=== PATIENT | male | born 1965 | race Caucasian/White ===

== ENCOUNTER 2019-09-27 01:06 | Emergency (ER) | payer MEDICARE, SELFPAY ==
[2019-09-27 01:18] VITALS: BP 146/69; PULSE 99; RESP 16; TEMP 36.9; O2SAT 97
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
[2019-09-27] MEDS: MORPHINE SULFATE 10 MG/ML AMP 8 MG IM (02:04)
[2019-09-27 02:12] VITALS: BP 157/61; PULSE 91; RESP 18; O2SAT 98
[2019-09-27 02:33] VITALS: BP 162/93; PULSE 99; RESP 17; O2SAT 97
== END 2019-09-27 02:34 | disposition home or self-care (01) ==
PROVIDERS: Emergency Provider Emergency Medicine; PCP Family Medicine
DX: G54.6 Phantom limb syndrome with pain (principal); Z89.612 Acquired absence of left leg above knee; E11.42 Type 2 diabetes mellitus with diabetic polyneuropathy; Z79.4 Long term (current) use of insulin; F41.9 Anxiety disorder, unspecified; M19.90 Unspecified osteoarthritis, unspecified site; I25.10 Atherosclerotic heart disease of native coronary artery without angina pectoris; F32.9 Major depressive disorder, single episode, unspecified; E78.5 Hyperlipidemia, unspecified; I10 Essential (primary) hypertension; I25.2 Old myocardial infarction; E11.51 Type 2 diabetes mellitus with diabetic peripheral angiopathy without gangrene; Z95.2 Presence of prosthetic heart valve; Z95.1 Presence of aortocoronary bypass graft; F17.200 Nicotine dependence, unspecified, uncomplicated
CPT/HCPCS: 96372; 99283; J2270

== ENCOUNTER 2019-10-24 00:58 | Observation (INO) | payer MEDICARE, SELFPAY ==
[2019-10-24] VITALS (12 sets, daily range): BP systolic 118–181; BP diastolic 84–109; PULSE 70–137; RESP 12–32; TEMP 36.2–36.7; O2SAT 95–98; BMI 32.5; BMI 33.0
--- NOTE | ~2019-10-24 | XR_ITS ---
EXAMINATION: XR chest 1V portable DATE: 10/24/2019 06:39 INDICATION: Palpitations. TECHNIQUE: A single frontal view of the chest was obtained. COMPARISON: Chest 2 views 04/05/2014, chest CT 04/05/2014 FINDINGS: Sensitivity is decreased by obesity. There are airspace opacities in right lower lung zone. No pleural effusion or pneumothorax. The heart size is normal. Median sternotomy wires and mediastin al surgical clips are seen, likely from prior coronary artery bypass grafting. IMPRESSION: 1. Airspace opacities in right lower lung zone, consistent with atelectasis versus pneumonia. Reviewed, dictated and finalized at location A. [facility]E IMPRESSION: 1. Airspace opacities in right lower lung zone, consistent with atelectasis ramona adair pneumonia.
--- NOTE | 2019-10-24 01:10 | ED.EXTPRO ---
HPI - Extremity Problem General Chief complaint: Extremity Injury, Lower Stated complaint: pain in l stump Time Seen by Provider: 10/24/19 01:02 Source: patient and RN notes reviewed Mode of arrival: wheelchair Limitations: no limitations History of Present Illness HPI Narrative: Pt is a 54 y/o male with a Hx of lt AKA, who presents to the ED with c/o exacerbation of chronic lt posterior hip pain starting several days ago. He notes that he has previously been following with a pain specialist for chronic lt hip pain near his amputation stump, but states that he has been off of his previous analgesics for the past 1.5 years. Pt's notes that he has been evaluated here within the past 2 months for similar pain. He states that his pain has worsened over the past several days, and notes that he was unable to sleep tonight due to his pain. Pt denies any new injuries, fever, or chills. He notes that he currently takes Lyrica for his chronic pain. MD Complaint: extremity pain Onset (ago): day(s) (several) Pain Consistency: other (worsening) Location: other (lt posterior hip) Radiation: none Associated symptoms: denies other symptoms Context: immobilization Related Data Home Medications Medication Instructions Recorded Confirmed aspirin 81 mg tablet,delayed 81 mg PO DAILY 09/20/19 10/04/19 release clopidogrel 75 mg tablet 75 mg PO DAILY 09/20/19 10/04/19 insulin human U-100 NPH-regulr 80 unit SUB-Q BID ml 09/20/19 10/04/19 70-30 mix 100 unit/mL subcutaneous susp nitroglycerin 0.4 mg sublingual 0.4 mg SUBLINGUAL Q5M PRN 09/20/19 10/04/19 tablet nortriptyline 50 mg capsule 50 mg PO DAILY 09/20/19 10/04/19 phenytoin sodium extended 100 mg 200 mg PO BID cap 09/20/19 10/04/19 capsule simvastatin 20 mg tablet 20 mg PO DAILY 09/20/19 10/04/19 gabapentin 300 mg capsule 300 mg PO TID 10/04/19 10/04/19 Allergies Allergy/AdvReac Type Severity Reaction Status Date / Time No Known Allergies Allergy Unverified 10/24/19 01:11 Review of Systems Review of Systems: All systems reviewed & are unremarkable except as noted in HPI and below Constitutional: Constitutional: Denies chills and Denies fever(s) Musculoskeletal: Musculoskeletal: Reports arthralgias (lt posterior hip pain) [facility] Past Medical History Medical History Angina at rest Anxiety Arthritis CAD (coronary artery disease) of artery bypass graft Depression Diabetes Hyperlipidemia Hypertension Left above-knee amputee Myocardial infarction Peripheral neuropathy Peripheral vascular disease Seizures Surgical History Surgical History Above knee amputation of left lower extremity H/O aortic valve replacement H/O cardiac catheterization H/O vascular surgery History of appendectomy Hx of CABG Social History Social History Smoking status: Current every day smoker Second hand tobacco smoke exposure: No Alcohol intake: never Exam Narrative: Exam Narrative: APPEARANCE: Moderate distress from pain, nontoxic, resting in bed EYES: EOMI HEENT: Normocephalic, atraumatic, OMM RESPIRATORY: No respiratory distress Clear to auscultation bilaterally with no rhonchi wheezing or rales. CARDIOVASCULAR: Tachycardic and regular without murmurs rubs or gallops. ABDOMINAL: Soft, nontender, nondistended, no rebound or guarding MUSCULOSKELETAl: Left lower extremity with stump present, no erythema or signs of infection, no clubbing, cyanosis or edema. There is no overlying wounds NEURO: Awake and alert. Following commands, speech normal, no focal deficits SKIN:: Warm, dry. No rashes lesions or abrasions PSYCHIATRIC: Normal affect/mood, Course Course Emergency Course: Reviewed old records. The patient is been seen in the emergency department for this prior as well as by PCP. Reviewed PCPs note patient had been referred to pain
--- NOTE | 2019-10-24 01:11 | ECG_ITS ---
Measurements Intervals [place] Rate: 128 P: 68 VA: 170 QRS: -17 QRSD: 76 T: 82 QT: 301 QTc: 440 Interpretive Statements SINUS TACHYCARDIA LEFT VENTRICULAR HYPERTROPHY AND ST-T CHANGE ANTERIOR INFARCT, AGE INDETERMINATE INFERIOR INFARCT, AGE INDETERMINATE ST-T WAVE ABNORMALITY IN LATERAL LEADS- CONSIDER ISCHEMIA BASELINE ARTIFACT- I, II, AVR ABNORMAL ECG Electronically Signed On 10-24-2019 7:27:53 LICENSED BONDSMAN by Dylan Baker D.O.
[2019-10-24 01:25] LABS: Basophils Absolute Auto 0.1 K/mm3 (0.0-0.1); Basophils Percent Auto 0.4 % (0.2-1.2); Eosinophils Absolute Auto 0.4 K/mm3 (0-0.3); Eosinophils Percent Auto 2.7 % (0-4.4); Hematocrit 46.7 % (42.0-52.0); Hemoglobin 16.5 g/dL (14.0-18.0); Immature Granulocyte Absolute 0.04 K/mm3 (0.00-0.031); Immature Granulocyte Percent A 0.3 % (0-0.5); Lymphocytes Percent Auto 34.9 % (18.3-44.2); Mean Corpuscular HGB Conc 35.3 g/dl (32-36); Mean Corpuscular Volume 93.4 fl (80-100); Mean Platelet Volume 11.8 fl (7.4-10.4); Monocytes Absolute Auto 1.4 K/mm3 (0.1-0.6); Neutrophils Percent Auto 51.7 % (45.5-73.1); Platelet Count Result 229 k/mm3 (150-375); White Blood Count 13.5 K/mm3 (4.5-10.0)
[2019-10-24] MEDS: LACTATED RINGERS 1,000 ML 999 ML IV CONT (01:35)
[2019-10-24] MEDS: MORPHINE SULFATE 4 MG/ML INJ IV PUSH ×2 (01:35→02:12)
[2019-10-24 01:45] LABS: INR 0.8; Prothrombin Time 11.2 Seconds (11.1-14.7)
[2019-10-24 02:03] LABS: Alanine Aminotransferase 86 U/L (4-50); Albumin Level 3.2 g/dL (3.5-5.1); Alkaline Phosphatase 238 U/L (38-126); Aspartate Amino Transferase 76 U/L (17-59); Bilirubin,Total 0.4 mg/dL (0.2-1.3); Blood Urea Nitrogen 13 mg/dL (9-20); Calcium 8.8 mg/dL (8.4-10.2); Carbon Dioxide 24 mmol/L (22-30); Chloride 94 mmol/L (98-107); Estimated Glomerular Filt Rate > 60; Glucose 400 mg/dL (75-110); Potassium 4.3 mmol/L (3.4-5.0); Sodium 131 mmol/L (137-145)
--- NOTE | 2019-10-24 02:38 | PC.NURSE ---
Called lab to add on Trop I
[2019-10-24] MEDS: METOPROLOL TARTRATE 50 MG TAB PO ×2 (02:46→14:42)
--- NOTE | 2019-10-24 02:55 | PC.NURSE ---
pt requesting pain medications edp notified.
[2019-10-24 02:59] LABS: Lactic Acid Reflex 2.3 mmol/L (0.7-2.1)
[2019-10-24 03:00] LABS: Troponin I 0.029 ng/mL (0.000-0.034)
[2019-10-24 03:21] LABS: Add Urine Microscopic? YES; Appearance Urine Clear (Clear); Bilirubin Urine Negative (Negative); Blood Urine 1+ (Negative); Color Urine Yellow (Yellow); Glucose Urine UA 3+ mg/dL (Negative); Ketones Urine Trace mg/dL (Negative); Leukocyte Esterase Ur Negative LEU/UL (Negative); Mucus Urine Rare /lpf; Nitrate Urine Negative (Negative); Protein Urine 3+ mg/dL (Negative); Squamous Epithelial Cell Urine Rare /hpf (Few); Urobilinogen Urine Negative mg/dL (<2.0); WBC Urine 0-3 /hpf
--- NOTE | 2019-10-24 03:31 | PC.NURSE ---
pt requesting pain medications edp notified.
[2019-10-24] MEDS: HYDROMORPHONE HCL 1 MG/ML INJ 0.5 MG IV PUSH (03:38)
[2019-10-24 04:56] LABS: Glucose Point of Care 420 (65-105)
[2019-10-24 05:39] LABS: Reflex Lactic Acid Yes or No Add Lactic
--- NOTE | 2019-10-24 05:52 | PC.NURSE ---
Pt refused the second lactic acid to be drawn. notified
[2019-10-24 06:19] LABS: Troponin I 0.303 ng/mL (0.000-0.034)
[2019-10-24 06:28] LABS: Glucose Point of Care 340 (65-105)
--- NOTE | 2019-10-24 06:33 | ECG_ITS ---
Measurements Intervals [place] Rate: 87 P: 8 NV: 185 QRS: -6 QRSD: 96 T: 72 QT: 369 QTc: 445 Interpretive Statements SINUS RHYTHM WITH SINUS ARRHYTHMIA INFERIOR INFARCT, AGE INDETERMINATE BORDERLINE ST-T WAVE ABNORMALITY- LATERAL LEADS ABNORMAL ECG Electronically Signed On 10-24-2019 7:31:15 CHOCOLATE FINISHER OPERATOR by Dylan Baker D.O.
[2019-10-24] MEDS: ASPIRIN 81 MG CHEWABLE TABLET 324 MG PO (06:48)
[2019-10-24 06:56] LABS: Lactic Acid Reflex 1.2 mmol/L (0.7-2.1)
--- NOTE | 2019-10-24 08:49 | ADMIMU ---
This patient, Calvin Flores, was admitted to IMU status, and placed in IMU Room 211-01. Patient/family oriented to hospital policies and general routines including ID bracelet, bed and alarms, visiting hours, pain management, procedures, bathroom and other care routines, personal items, smoking policy, room service/diet, and visiting hours. Valuables list has been completed. Information on how to activate the Rapid Response Team has been discussed. Patient/Family are encouraged to report perceived risks to care and to ask questions if they do not understand what they are told or what they should do.
[2019-10-24 10:15] LABS: Hemoglobin A1C 12.7 % (<5.7)
--- NOTE | 2019-10-24 10:37 | PM.IMHP ---
H&P: HPI History of Present Illness Chief complaint: elevated troponin/sinus tachycardia/chronic stump Narrative: Date and Time of Service of History & Physical: October 24, 2019 at 10:10 a.m. Date and Time of Placement in Observation: October 24, 2019 at 6:39 a.m.. Chief Complaint: Increase in chronic pain in left AKA stump. History of Present Illness: Calvin Flores is a 54 year old male with known chronic pain in the left AKA stump, diabetes mellitus insulin requiring, hypertension, coronary artery disease and hyperlipidemia presented to emergency room yesterday with increased pain in his left AKA stump. Patient was seen by his primary physician on October 04, 2019 at which time gabapentin was increased. He does also take Lyrica. Referral was recommended to pain management. Patient is not seen pain management this time. No new injury. No erythema. No fever. Patient does admit to not having taken his nighttime medication prior to coming to the emergency room. While in the emergency room, he was noted to have increased heart rate and blood pressure. No chest pain, chest pressure or shortness of breath. ER physician did draw serial troponin levels with 2nd troponin level elevated. As result, he was placed in observation for further evaluation and treatment. Review of Systems Review of Systems: All systems reviewed & are unremarkable except as noted in HPI and below Constitutional: Constitutional: Denies chills and Denies fever(s) Eyes: Eyes: Denies blurry vision and Denies diplopia ENT: Denies dysphagia, Denies nasal congestion, Denies nasal discharge and Denies sore throat Cardiovascular: Cardiovascular: Denies chest pain, Denies leg edema and Denies lightheadedness Respiratory: Respiratory: Denies cough, Denies dyspnea and Denies wheezing Gastrointestinal: Gastrointestinal: Denies abdominal pain, Denies diarrhea, Denies nausea and Denies vomiting Genitourinary: Genitourinary: Reports no additional male genitourinary complaints Musculoskeletal: Comments: chronic pain left AKA stump Integumentary/Breasts: Skin/Breast: Denies erythema Neurologic: Denies headache(s) Comments: pain left AKA stump Psychiatric: Psychiatric: Denies anxiety and Denies depression Endocrine: Endocrine: Reports no additional endocrine complaints Hematologic/Lymphatic: Hematologic/Lymphatic: Reports no additional hematologic/lymphatic complaints Allergic/Immunologic: Allergic/Immunologic: Reports no additional allergic/immunologic complaints [facility] Past Medical History Medical History Angina at rest Anxiety Arthritis CAD (coronary artery disease) of artery bypass graft Depression Diabetes Hyperlipidemia Hypertension Left above-knee amputee Myocardial infarction Peripheral neuropathy Peripheral vascular disease Seizures Surgical History Surgical History Above knee amputation of left lower extremity H/O aortic valve replacement H/O cardiac catheterization H/O vascular surgery History of appendectomy Hx of CABG Family History Family History Other Diabetes mellitus Social History Social History Social History: Patient is . He lives with his who is his POA. He is a full code. He previously smoked 1 pack per day times 35 years quitting 2 years ago. No current alcohol use. Smoking packs per day: 1 Smoking cigarettes per day: 20.0 Years smoked: 35 Smoking pack-years: 35.00 Smoking status: Former smoker Tobacco type: cigarettes Second hand tobacco smoke exposure: No Smoking end date: 08/25/17 Alcohol intake: never Substance use: former Living arrangements: with family Gender identity (if verbalized by the patient): Male Spiritual care concerns: No Agree to blo
[2019-10-24 12:22] LABS: Glucose Point of Care 425 (65-105)
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
[2019-10-24] MEDS: NORTRIPTYLINE HCL 25 MG CAPSULE 50 MG PO (13:35)
[2019-10-24] MEDS: PREGABALIN 75 MG CAPSULE 150 MG PO (13:35)
[2019-10-24] MEDS: lisinopriL 5 MG TABLET PO (13:36)
[2019-10-24] MEDS: GABAPENTIN 300 MG CAPSULE PO (13:36)
[2019-10-24] MEDS: PHENYTOIN SODIUM 100 MG CAP 200 MG PO (13:36)
[2019-10-24] MEDS: INSULIN ASPART (*BKC) 100 UNITS/ML 15 UNITS SUB-Q (13:42)
--- NOTE | 2019-10-24 19:09 | PM.DS ---
DS: Diagnosis Admitting Diagnosis Admitting Diagnosis: Other complications of amputation stump Discharge Diagnosis (1) Amputation stump pain: Code(s): T87.89 - Other complications of amputation stump; M79.609 - Pain in unspecified limb Status: Acute (2) Elevated troponin: Code(s): R79.89 - Other specified abnormal findings of blood chemistry Status: Acute (3) Hypertension: Qualifiers: Hypertension type: essential hypertension Qualified Code(s): I10 - Essential (primary) hypertension Code(s): I10 - Essential (primary) hypertension Status: Acute (4) Diabetes: Qualifiers: Diabetes mellitus type: type 2 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 transplanted heart: [place] heart Associated angina: without angina Qualified Code(s): I25.810 - Atherosclerosis of coronary artery bypass graft(s) without angina pectoris Code(s): I25.810 - Atherosclerosis of coronary artery bypass graft(s) without angina pectoris Status: Acute (6) Hyperlipidemia: Qualifiers: Hyperlipidemia type: unspecified Qualified Code(s): E78.5 - Hyperlipidemia, unspecified Code(s): E78.5 - Hyperlipidemia, unspecified Status: Acute DS: Summary Hospital Course Reason for hospitalization: Increase in chronic pain left AKA stump. Hospital Course: Date of Service of Discharge: October 24, 2019. History of Present Illness: Patient is a 54-year-old gentleman with known chronic pain in his left AKA stump, type 2 diabetes mellitus insulin requiring, hypertension, coronary artery disease and hyperlipidemia who presented to the emergency room with complaint of increased pain in his left AKA stump. Patient was seen by his primary physician on October 04, 2019 at which time gabapentin was increased. He also takes to Lyrica. Referral was recommended to pain management at that time but he has not yet been seen. No recent injury, erythema or fever. He does admit to not having taken his nighttime medications prior to coming to the emergency room. While in the emergency room, he was noted to have increased heart rate and blood pressure. No chest pain, chest pressure or shortness of breath. No headache or dizziness. ER physician did draw serial troponin levels with patient noted to have the tachycardia and elevated blood pressure. Second troponin level was elevated. As result, he was placed in observation for further evaluation and treatment. Of note, he was given IV morphine and Dilaudid in the emergency room. Course in Hospital: Patient was placed in observation in the intermediate care unit for serial troponin levels. Cardiology was consulted from the emergency room. Troponin level did increase to a maximum of 1.830 but is noted he never experienced cardiac symptoms. EKG with no acute changes. Telemetry will also with no changes seen. He was seen in consultation by Dr. Mccabe from [facility] with which he [facility]. No further cardiac evaluation was needed given no cardiac symptoms. Tachycardia and elevated blood pressure were felt to be due to lack of taking his metoprolol. He was resumed on his home metoprolol as well as other cardiac medications with no issues during his stay. The reason for which he initially presented to the ER was increased pain in his left AKA stump. As noted, he was given IV pain medication in the emergency room. In hospital, he was given h
== END 2019-10-24 15:15 | disposition home or self-care (01) ==
LOC: ANHED 06:44 → ANHIMU 10:21
PROVIDERS: Admitting Provider Family Medicine; Emergency Provider Emergency Medicine; PCP Family Medicine; Visit Provider Hospitalist
DX: T87.89 Other complications of amputation stump (principal); Z89.612 Acquired absence of left leg above knee; G89.29 Other chronic pain; M25.552 Pain in left hip; R79.89 Other specified abnormal findings of blood chemistry; R00.0 Tachycardia, unspecified; I25.810 Atherosclerosis of coronary artery bypass graft(s) without angina pectoris; I25.2 Old myocardial infarction; E11.42 Type 2 diabetes mellitus with diabetic polyneuropathy; E11.51 Type 2 diabetes mellitus with diabetic peripheral angiopathy without gangrene; I10 Essential (primary) hypertension; E78.5 Hyperlipidemia, unspecified; F41.9 Anxiety disorder, unspecified; F32.9 Major depressive disorder, single episode, unspecified; Z79.4 Long term (current) use of insulin; Z79.82 Long term (current) use of aspirin; Z79.899 Other long term (current) drug therapy; Z87.891 Personal history of nicotine dependence; Z91.14 Patient's other noncompliance with medication regimen; Z95.2 Presence of prosthetic heart valve
CPT/HCPCS: 36415; 71045; 80053; 81001; 82948; 83036; 83605; 84484; 85025; 85610; 85730; 93005; 96361; 96374; 96375; 96376; 99285; A9270; G0378; J1170; J1815; J2270; J7120

== ENCOUNTER 2020-01-07 04:33 | Emergency (ER) | payer MEDICARE, SELFPAY ==
--- NOTE | 2020-01-07 04:45 | ED.EXTPRO ---
HPI - Extremity Problem General Chief complaint: Extremity Problem,Nontraumatic Stated complaint: Pain in stump Time Seen by Provider: 01/07/20 04:42 History of Present Illness HPI Narrative: Patient is a 54-year-old male who presents ER with left low back pain as well as phantom limb pain. This is a chronic issue for him. This is been ongoing for 3 days. He reports typically he will get the pain and will last for several days will not go away until he goes to sleep. This has not gone away yet. No aggravating or alleviating factors. Has been to physical therapy for this. Recently he is filled out paperwork to be referred to pain management. No recent trauma to the affected area. Denies skin breakdown fever. Has been compliant with his Lyrica and gabapentin. Increasing amount of gabapentin that he takes at night in hopes that it would help his pain. Related Data Home Medications Medication Instructions Recorded Confirmed aspirin 81 mg tablet,delayed 81 mg PO DAILY 09/20/19 10/24/19 release insulin human U-100 NPH-regulr 80 unit SUB-Q BID ml 09/20/19 10/24/19 70-30 mix 100 unit/mL subcutaneous susp nitroglycerin 0.4 mg sublingual 0.4 mg SUBLINGUAL Q5M PRN 09/20/19 10/24/19 tablet nortriptyline 50 mg capsule 50 mg PO DAILY 09/20/19 10/24/19 simvastatin 20 mg tablet 20 mg PO DAILY 09/20/19 10/24/19 Allergies Allergy/AdvReac Type Severity Reaction Status Date / Time No Known Allergies Allergy Verified 01/07/20 04:56 Review of Systems Review of Systems: All systems reviewed & are unremarkable except as noted in HPI and below Constitutional: Constitutional: Denies chills, Denies fever(s) and Denies weakness Cardiovascular: Cardiovascular: Denies chest pain and Denies radiating jaw, neck or arm pain Gastrointestinal: Gastrointestinal: Denies abdominal pain, Denies nausea and Denies vomiting Musculoskeletal: Comments: Low back pain left side as well as sharp pains in the right leg stump. [facility] Social History Social History Social History: Patient is . He lives with his who is his POA. He is a full code. He previously smoked 1 pack per day times 35 years quitting 2 years ago. No current alcohol use. Smoking packs per day: 1 Smoking cigarettes per day: 20.0 Years smoked: 35 Smoking pack-years: 35.00 Smoking status: Former smoker Tobacco type: cigarettes Second hand tobacco smoke exposure: No Smoking end date: 08/25/17 Alcohol intake: never Substance use: former Gender identity (if verbalized by the patient): Male Spiritual care concerns: No Agree to blood products: Yes Exam Narrative: Exam Narrative: GENERAL: Uncomfortable-appearing, well-nourished, and in no acute distress. HEAD: Normocephalic, atraumatic.. ENT: Mucous membranes moist. CHEST: Clear to auscultation. No respiratory distress. HEART: Regular rate and rhythm. Normal peripheral pulses. EXTREMITIES: Focused exam of the left stump shows an AKA without any wound breakdown. Seems to range okay at the hip. No reproducible tenderness with palpation. Patient points to the posterior aspect of the left hip and stating where his pain is located. Back: No midline tenderness of the thoracic or lumbar spine. No reproducible paraspinal muscular tenderness. SKIN: Warm, dry, no rash. NEURO: Alert and oriented x3. Course Course Emergency Course: IM morphine here. Discharge with Solu-Medrol and lidocaine patches. Vital Signs Vital signs: Vital Signs Temperature 98.3 F 01/07/20 04:51 Pulse Rate 93 01/07/20 04:51 Respiratory Rate 14 01/07/20 04:51 Blood Pressure 150/107 H 01/07/20 04:51 Pulse Oximetry 99 01/07/20 04:51 Temperature 98.3 F 01/07/20 04:51 Pulse Rate 93 01/07/20 04:51 Respiratory Rate 14 01/07/20 04:51 Blood Pressure 150/107 H 01/07/20 04:51 Pulse Oximetry 99 01/07/20 04:51 Discharge Plan Disch
[2020-01-07 04:51] VITALS: BP 150/107; PULSE 93; RESP 14; TEMP 36.8; O2SAT 99
[2020-01-07] MEDS: MORPHINE SULFATE 4 MG/ML INJ IM (05:16)
[2020-01-07 05:57] VITALS: BP 155/61; PULSE 99; RESP 19; O2SAT 100
== END 2020-01-07 06:01 | disposition home or self-care (01) ==
PROVIDERS: Emergency Provider Emergency Medicine; PCP Family Medicine
DX: G54.6 Phantom limb syndrome with pain (principal); F41.9 Anxiety disorder, unspecified; E78.5 Hyperlipidemia, unspecified; I25.10 Atherosclerotic heart disease of native coronary artery without angina pectoris; M19.90 Unspecified osteoarthritis, unspecified site; I10 Essential (primary) hypertension; I25.2 Old myocardial infarction; E11.42 Type 2 diabetes mellitus with diabetic polyneuropathy; E11.51 Type 2 diabetes mellitus with diabetic peripheral angiopathy without gangrene; Z95.2 Presence of prosthetic heart valve; Z95.1 Presence of aortocoronary bypass graft; Z79.82 Long term (current) use of aspirin; Z79.4 Long term (current) use of insulin; Z87.891 Personal history of nicotine dependence
CPT/HCPCS: 96372; 99283; J2270

== ENCOUNTER 2020-06-14 09:25 | Emergency (ER) | payer MEDICARE, SELFPAY ==
--- NOTE | ~2020-06-14 | XR_ITS ---
EXAMINATION: XR lumbar spine min 4V DATE: 06/14/2020 10:27 INDICATION: Low back pain. Fall. TECHNIQUE: 5 views of lumbar spine were obtained. COMPARISON: Lumbar spine radiograph 02/18/2019 FINDINGS: Bone alignment is normal. There is mild chronic anterior wedging of L1 vertebral body. Ther e is mildly decreased disc height at L1-L2 and L2-L3. There are endplate osteophytes at most levels. There is multilevel mild facet joint osteoarthritis. A vascular stent is likely in right common iliac artery. IMPRESSION: 1. Mild lumbar spondylosis. Reviewed, dictated and finalized at location A. IMPRESSION: 1. Mild lumbar spondylosis.
--- NOTE | ~2020-06-14 | XR_ITS ---
EXAMINATION: XR pelvis 1-2V DATE: 06/14/2020 10:27 INDICATION: Back pain. Fall. TECHNIQUE: An anteroposterior view of the pelvis was obtained. COMPARISON: Pelvis radiograph 02/18/2019 FINDINGS: There is amputation of the proximal left femur. The residual left femur is small and deform ed. No acute fracture. There are old healed fractures of the bilateral superior and inferior pubic ra mi. There is moderate to severe left hip osteoarthritis. There is mild right hip osteoarthritis. A va scular stent is likely in right common iliac artery. IMPRESSION: 1. No acute fracture. 2. Mild right hip osteoarthritis. Reviewed, dictated and finalized at location A.
--- NOTE | ~2020-06-14 | XR_ITS ---
EXAMINATION: XR sacrum coccyx min 2V DATE: 06/14/2020 10:27 INDICATION: Low back pain. Fall. TECHNIQUE: 3 views of the sacrum and coccyx were obtained. COMPARISON: Pelvis radiograph 02/18/2019 FINDINGS: Bone alignment is normal. No acute fracture. There are old healed fractures of the bilatera l superior and inferior pubic rami. There is mild lumbar spondylosis. A vascular stent is likely in r ight common iliac artery. IMPRESSION: 1. No acute fracture. Reviewed, dictated and finalized at location A. IMPRESSION: 1. No acute fracture.
[2020-06-14 09:33] VITALS: BP 189/81; PULSE 70; RESP 18; TEMP 36.8; O2SAT 100
--- NOTE | 2020-06-14 09:51 | ED.FALL ---
HPI - Fall General Chief Complaint: Fall Stated Complaint: FALL, STUMP PAIN Time Seen by Provider: 06/14/20 09:31 Source: patient and family () Mode of arrival: wheelchair Limitations: no limitations History of Present Illness HPI Narrative: Patient with history of left lower extremity amputation, NC, stroke, hypertension, hypercholesterolemia, depression and anxiety presents with chief complaint of pain to his left stump/pelvis, low back and coccyx after falling onto the floor while trying to transfer from his wheelchair to his bed. Patient states that he fell on the left side where the stump is located. Patient states today he also put out his right hand to catch himself and obtained a small abrasion on his right thumb but denies any bony tenderness to that extremity. Patient denies hitting his head, loss of consciousness, nausea, vomiting, abdominal pain. Patient states that his helped him into bed but after a few hours he started noticing spasming and shooting pain sensations to the stump. Patient states that he used to see pain management but no longer drives. Patient states that he takes Lyrica, nortriptyline for pain but it is not well controlled. Patient states that he was on [place] Contin but it was stopped due to the government wanting to stop strong pain medications and marijuana usage. Related Data Home Medications Medication Instructions Recorded Confirmed aspirin 81 mg tablet,delayed 81 mg PO DAILY 09/20/19 06/06/20 release nitroglycerin 0.4 mg sublingual 0.4 mg SUBLINGUAL Q5M PRN 09/20/19 06/06/20 tablet cholecalciferol (vitamin D3) 50 50 mcg PO DAILY 06/06/20 06/06/20 mcg (2,000 unit) capsule Allergies Allergy/AdvReac Type Severity Reaction Status Date / Time No Known Allergies Allergy Verified 06/06/20 14:31 Review of Systems Review of Systems: Narrative: CONSTITUTIONAL: Denies fever, chills, or sweats. EYES: Denies visual changes, redness, or discharge. ENT: Denies rhinorrhea, congestion, sore throat, or otalgia. CARDIOVASCULAR: Denies chest pain, palpitations, or edema. RESPIRATORY: Denies cough or dyspnea. GASTROINTESTINAL: Denies abdominal pain, nausea, vomiting, or diarrhea. GENITOURINARY: Denies dysuria or hematuria. SKIN: Denies rash or itching. MUSCULOSKELETAL: Reports back pain and myalgia. NEUROLOGIC: Denies headache, numbness, dizziness, or weakness. PSYCHIATRIC: Denies anxiety or depression. [facility] Past Medical History Medical History (Updated 06/14/20 @ 10:57 by Franklin Myers PA-C) Angina at rest Anxiety Arthritis CAD (coronary artery disease) of artery bypass graft Chronic low back pain Chronic pain Depression Diabetes History of colon polyps Hyperlipidemia Hypertension Insomnia Left above-knee amputee Myocardial infarction Osteoarthritis involving joints of upper arms, bilateral Peripheral neuropathy Peripheral vascular disease Seizures Vitamin D deficiency Surgical History Surgical History (Updated 06/06/20 @ 16:56 by Amaris Boogie MD) Above knee amputation of left lower extremity Amputation of left lower extremity 11/1985 H/O aortic valve replacement H/O cardiac catheterization H/O vascular surgery History of appendectomy Hx of CABG Family History Family History Other Diabetes mellitus Social History Social History Social History: Patient is . He lives with his who is his POA. He is a full code. He previously smoked 1 pack per day times 35 years quitting 2 years ago. No current alcohol use. Smoking packs per day: 1 Smoking cigarettes per day: 20.0 Years smoked: 35 Smoking pack-years: 35.00 Smoking status: Former smoker Tobacco type: cigarettes Second hand tobacco smoke exposure: No Smoking end date: 08/25/17 Alcohol intake: never Substance use: former Gender identity (if verbalized by the evangelista
[2020-06-14] MEDS: HYDROcodone/acetaminophen (*CRX) 5-325 MG TABLET 1 TAB PO (10:46)
--- NOTE | 2020-06-14 11:00 | PC.NURSE ---
Report given to ÁLVARO Chan
[2020-06-14 11:21] VITALS: BP 172/84; PULSE 75; RESP 20; O2SAT 98
== END 2020-06-14 11:24 | disposition home or self-care (01) ==
PROVIDERS: Emergency Provider Emergency Medicine; PCP Family Medicine
DX: M79.652 Pain in left thigh (principal); M54.5 Low back pain; M53.3 Sacrococcygeal disorders, not elsewhere classified; Z87.891 Personal history of nicotine dependence; Z79.82 Long term (current) use of aspirin; F41.9 Anxiety disorder, unspecified; I25.10 Atherosclerotic heart disease of native coronary artery without angina pectoris; F32.9 Major depressive disorder, single episode, unspecified; E11.9 Type 2 diabetes mellitus without complications; E78.5 Hyperlipidemia, unspecified; M19.90 Unspecified osteoarthritis, unspecified site; G40.909 Epilepsy, unspecified, not intractable, without status epilepticus; Z89.612 Acquired absence of left leg above knee
CPT/HCPCS: 72110; 72170; 72220; 99284; A9270

== ENCOUNTER 2020-08-08 15:54 | Emergency (ER) | payer MEDICARE, SELFPAY ==
[2020-08-08] VITALS (16 sets, daily range): BP systolic 137–222; BP diastolic 81–104; PULSE 69–76; RESP 13–19; TEMP 36.2; O2SAT 91–100
--- NOTE | ~2020-08-08 | CT_ITS ---
EXAMINATION: CT chest abdomen pelvis w con EXAM DATE: 08/08/2020 17:16 INDICATION: Reporting chest pain, radiating to left flank TECHNIQUE: Spiral CT of the chest, abdomen and pelvis was performed following intravenous injection o f 100 mL Omnipaque 350. Axial, coronal and sagittal images were reviewed. Coronal maximum intensity pixel images of chest reviewed. The dose-length product (DLP) for this examination was 2242.70 mGy- cm. The exposure was tailored according to patient size (auto mA exposure control), and iterative re construction (ASIR) was used as additional dose reduction technique. Comparison is made to prior exam ination from 04/05/2014. FINDINGS: There is no aortic aneurysm or dissection. CHEST: No central pulmonary emboli. The lungs are clear. There is small to moderate left, and a sma ll right pleural effusion. Some faint basilar groundglass opacities which could be mild pulmonary tracie ma given the interlobular septal thickening. Can't exclude developing acute infectious process. No co nfluent consolidation. Tracheobronchial tree is patent. There is no mediastinal, hilar or axillary lymphadenopathy. There is no pneumothorax. Heart normal in size. There are sternotomy wires, a nd cardiac/coronary surgical changes. Correlate with prior history. ABDOMEN PELVIS: The liver, spleen, adrenal glands and pancreas are unremarkable. Gallbladder is unre markable. No biliary obstruction. Portal and splenic veins are patent. Kidneys enhance symmetrical ly. There is no hydronephrosis. The prostate is unremarkable. The bladder is unremarkable. There is no retroperitoneal or pelvic lymphadenopathy. There is moderate scattered arteriosclerotic dise ase. There is a right iliac stent. Occluded left iliac artery, patient appears to have left leg amput ation. The appendix is not positively visualized. There is no pericecal inflammatory change to suggest appe ndicitis. The stomach and small bowel are unremarkable. There is expected amount of colonic stool. No free intraperitoneal gas. There are no osteoblastic or osteolytic lesions identified. IMPRESSION: 1. Small to moderate left, small right pleural effusion. 2. Basilar intralobular septal thickening and faint groundglass opacity, could be mild pulmonary tracie ma but infection not excludable. 3. No acute intra-abdominal findings. Reviewed, dictated and finalized at location A. CE EQUIPMENT TECHNICIAN IMPRESSION: 1. Small to moderate left, small right pleural effusion. 2. Basilar intralobular septal thickening and faint groundglass opacity, could be mild pulmonary edema but infection not excludable. 3. No acute intra-abdominal findings.
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
--- NOTE | 2020-08-08 16:17 | ECG_ITS ---
Measurements Intervals [place] Rate: 76 P: 23 PA: 190 QRS: -6 QRSD: 90 T: 98 QT: 390 QTc: 441 Interpretive Statements SINUS RHYTHM DELAYED PRECORDIAL R/S TRANSITION LEFT VENTRICULAR HYPERTROPHY AND ST-T CHANGE INFERIOR INFARCT, AGE INDETERMINATE BORDERLINE ST-T WAVE ABNORMALITY- HIGH LATERAL LEADS BASELINE ARTIFACT- I, II, III, AVR, AVL,A VF, V1-V6 ABNORMAL ECG Electronically Signed On 08-08-2020 17:07:53 HUMAN SERVICES PROGRAM SPECIALIST by Dylan Baker D.O.
[2020-08-08] MEDS: MORPHINE SULFATE (*CRX) 4 MG/ML INJ IV PUSH (16:31)
[2020-08-08] MEDS: ONDANSETRON INJ 4 MG/2 ML VIAL IV PUSH (16:32)
[2020-08-08] MEDS: SODIUM CHLORIDE 0.9% IV 500 ML 999 ML IV CONT (16:32)
[2020-08-08 16:39] LABS: Basophils Percent Auto 0.5 % (0.2-1.2); Eosinophils Absolute Auto 0.3 K/mm3 (0-0.3); Eosinophils Percent Auto 3.5 % (0-4.4); Hematocrit 46.5 % (42.0-52.0); Hemoglobin 16.3 g/dL (14.0-18.0); Immature Granulocyte Absolute 0.03 K/mm3 (0.00-0.031); Immature Granulocyte Percent A 0.3 % (0-0.5); Lymphocytes Absolute Auto 3.09 K/mm3 (0.9-3.2); Lymphocytes Percent Auto 34.8 % (18.3-44.2); Mean Corpuscular HGB Conc 35.1 g/dl (32-36); Mean Corpuscular Hemoglobin 33.1 pg (26-34); Mean Corpuscular Volume 94.3 fl (80-100); Mean Platelet Volume 11.8 fl (7.4-10.4); Monocytes Absolute Auto 1.1 K/mm3 (0.1-0.6); Monocytes Percent Auto 12.2 % (2.6-8.5); Neutrophils Absolute Auto 4.3 K/mm3 (1.3-6.7); Neutrophils Percent Auto 48.7 % (45.5-73.1); Platelet Count Result 223 k/mm3 (150-375); Red Blood Count 4.93 M/mm3 (4.6-6.20); Red Cell Distribution Width 12.7 % (11.5-14.5); White Blood Count 8.9 K/mm3 (4.5-10.0)
[2020-08-08 16:47] LABS: INR 0.8; Partial Thromboplastin Time 25.7 SECONDS (22.3-36.8); Prothrombin Time 11.6 Seconds (11.1-14.7)
[2020-08-08 16:50] LABS: Alanine Aminotransferase 81 U/L (4-50); Alkaline Phosphatase 253 U/L (38-126); Anion Gap 2 mmol/L (8-16); Aspartate Amino Transferase 107 U/L (17-59); Bilirubin,Total 0.4 mg/dL (0.2-1.3); Blood Urea Nitrogen 17 mg/dL (9-20); Calcium 8.6 mg/dL (8.4-10.2); Carbon Dioxide 31 mmol/L (22-30); Chloride 102 mmol/L (98-107); D Dimer 1.18 ug/mL (<0.48); Estimated CRCL calculation 132 ml/min; Estimated Glomerular Filt Rate > 60; Glucose 111 mg/dL (75-110); Potassium 4.7 mmol/L (3.4-5.0); Sodium 135 mmol/L (137-145)
[2020-08-08 16:56] LABS: Atypical Lymphocytes Present; Platelet Estimate Adequate (Adequate)
[2020-08-08 17:01] LABS: NT Pro B Type Natriuretic Pept 879 PG/ML (5-100); Troponin I 0.014 ng/mL (0.000-0.034)
== END 2020-08-08 18:55 | disposition home or self-care (01) ==
PROVIDERS: Emergency Provider Emergency Medicine; PCP Family Medicine
DX: M79.2 Neuralgia and neuritis, unspecified (principal); R91.8 Other nonspecific abnormal finding of lung field; Z87.891 Personal history of nicotine dependence; Z95.1 Presence of aortocoronary bypass graft; E78.5 Hyperlipidemia, unspecified; I10 Essential (primary) hypertension; I25.2 Old myocardial infarction; E11.42 Type 2 diabetes mellitus with diabetic polyneuropathy; I73.9 Peripheral vascular disease, unspecified; Z89.612 Acquired absence of left leg above knee; I25.110 Atherosclerotic heart disease of native coronary artery with unstable angina pectoris; F41.9 Anxiety disorder, unspecified; F32.9 Major depressive disorder, single episode, unspecified; G40.909 Epilepsy, unspecified, not intractable, without status epilepticus; R06.02 Shortness of breath
CPT/HCPCS: 36415; 71260; 74177; 80053; 83880; 84484; 85025; 85380; 85610; 85730; 93005; 96361; 96374; 96375; 99284; J0131; J2270; J2405; J7040; Q9967

== ENCOUNTER 2020-08-10 11:06 | Emergency (ER) | payer MEDICARE, SELFPAY ==
[2020-08-10] VITALS (26 sets, daily range): BP systolic 162–194; BP diastolic 69–115; PULSE 68–77; RESP 10–24; TEMP 36.6; O2SAT 97–100
--- NOTE | ~2020-08-10 | XR_ITS ---
XR chest 1V portable 08/10/2020 14:04 Indication: Chest pain Procedure: AP portable chest Comparison: Comparison to multiple prior studies sequentially, with oldest reviewed study dated 04/22. Findings: Status post median sternotomy. Cardiomegaly with diffuse bilateral airspace disease. No ple ural effusion or pneumothorax. No acute osseous abnormality. There is a foreign body in the soft tiss ues of the left axilla. Impression: 1: Cardiomegaly with diffuse bilateral airspace disease which may represent edema or less likely pneu monia. Reviewed, dictated and finalized at location A. LE BROKER Impression: 1: Cardiomegaly with diffuse bilateral airspace disease which may represent tracie ma or less likely pneumonia.
--- NOTE | 2020-08-10 11:42 | PC.NURSE ---
RT at beside for inhaler.
--- NOTE | 2020-08-10 11:45 | ECG_ITS ---
Measurements Intervals [place] Rate: 71 P: 15 MI: 199 QRS: -10 QRSD: 92 T: 96 QT: 393 QTc: 430 Interpretive Statements SINUS RHYTHM BORDERLINE R WAVE PROGRESSION, ANTERIOR LEADS INFERIOR INFARCT, AGE INDETERMINATE ST-T WAVE ABNORMALITY IN HIGH LATERAL LEADS- CONSIDER ISCHEMIA BASELINE ARTIFACT- I,, V6 ABNORMAL ECG Electronically Signed On 08-10-2020 12:06:34 MARINE PROPULSION TECHNICIAN by Dylan Baker D.O.
[2020-08-10 12:03] LABS: Basophils Percent Auto 0.2 % (0.2-1.2); Eosinophils Absolute Auto 0.1 K/mm3 (0-0.3); Eosinophils Percent Auto 1.2 % (0-4.4); Hematocrit 47.8 % (42.0-52.0); Hemoglobin 16.3 g/dL (14.0-18.0); Immature Granulocyte Absolute 0.02 K/mm3 (0.00-0.031); Immature Granulocyte Percent A 0.2 % (0-0.5); Lymphocytes Absolute Auto 1.98 K/mm3 (0.9-3.2); Lymphocytes Percent Auto 18.9 % (18.3-44.2); Mean Corpuscular HGB Conc 34.1 g/dl (32-36); Mean Corpuscular Hemoglobin 33.4 pg (26-34); Mean Platelet Volume 11.8 fl (7.4-10.4); Monocytes Absolute Auto 1.4 K/mm3 (0.1-0.6); Monocytes Percent Auto 13.6 % (2.6-8.5); Neutrophils Absolute Auto 6.9 K/mm3 (1.3-6.7); Neutrophils Percent Auto 65.9 % (45.5-73.1); Platelet Count Result 217 k/mm3 (150-375); Red Blood Count 4.88 M/mm3 (4.6-6.20); Red Cell Distribution Width 12.7 % (11.5-14.5); White Blood Count 10.5 K/mm3 (4.5-10.0)
[2020-08-10 12:15] LABS: Alanine Aminotransferase 77 U/L (4-50); Albumin Level 3.2 g/dL (3.5-5.1); Alkaline Phosphatase 271 U/L (38-126); Anion Gap 1 mmol/L (8-16); Aspartate Amino Transferase 101 U/L (17-59); Bilirubin,Total 0.7 mg/dL (0.2-1.3); Blood Urea Nitrogen 19 mg/dL (9-20); Calcium 8.6 mg/dL (8.4-10.2); Carbon Dioxide 33 mmol/L (22-30); Chloride 98 mmol/L (98-107); Estimated CRCL calculation 118 ml/min; Estimated Glomerular Filt Rate > 60; Glucose 280 mg/dL (75-110); Lipase 41 U/L (23-300); Potassium 5.3 mmol/L (3.4-5.0); Sodium 132 mmol/L (137-145)
--- NOTE | 2020-08-10 12:16 | PC.NURSE ---
Pt to ED with complaints of upper abdominal pain that radiates across his entire abdomen into his back. Pt states symptoms started 2 days ago. Pt denies nausea,vomiting, diarrhea, fevers, gu symptoms, or chest pain. VSS. EKG obtained. pt placed on NIBP, SpO2, and cardiac monitors.
[2020-08-10] MEDS: SODIUM CHLORIDE 0.9% IV 1,000 ML 999 ML IV CONT (12:47)
[2020-08-10] MEDS: METOCLOPRAMIDE HCL INJ 10 MG/2 ML VIAL IV PUSH (12:47)
--- NOTE | 2020-08-10 13:38 | PC.NURSE ---
Pt made aware that urine sample is still needed. Urinal at bedside. Call light within reach.
[2020-08-10] MEDS: MORPHINE SULFATE (*CRX) 2 MG/ML INJ IV PUSH (14:13)
--- NOTE | 2020-08-10 14:31 | PC.NURSE ---
ERPA at bedside to update pt on results and plan of care.
[2020-08-10 14:34] LABS: Add Urine Microscopic? YES; Appearance Urine Clear (Clear); Bilirubin Urine Negative (Negative); Blood Urine 1+ (Negative); Color Urine Straw (Yellow); Glucose Urine UA Negative (Negative); Ketones Urine Negative (Negative); Leukocyte Esterase Ur Negative LEU/UL (Negative); Nitrate Urine Negative (Negative); Protein Urine 2+ mg/dL (Negative); Specific Grav Ur 1.005 (1.001-1.035); Urobilinogen Urine Negative mg/dL (<2.0); WBC Urine 0-3 /hpf
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
== END 2020-08-10 16:10 | disposition home or self-care (01) ==
PROVIDERS: Physician Assistant; Emergency Provider Emergency Medicine; PCP Family Medicine
DX: R10.9 Unspecified abdominal pain (principal); Z20.828 Contact with and (suspected) exposure to other viral communicable diseases; I25.10 Atherosclerotic heart disease of native coronary artery without angina pectoris; Z95.1 Presence of aortocoronary bypass graft; Z89.612 Acquired absence of left leg above knee; Z79.82 Long term (current) use of aspirin; E78.5 Hyperlipidemia, unspecified; I25.2 Old myocardial infarction; E11.42 Type 2 diabetes mellitus with diabetic polyneuropathy; E11.51 Type 2 diabetes mellitus with diabetic peripheral angiopathy without gangrene; E55.9 Vitamin D deficiency, unspecified; M19.012 Primary osteoarthritis, left shoulder; M19.011 Primary osteoarthritis, right shoulder; Z86.010 Personal history of colon polyps; Z95.2 Presence of prosthetic heart valve; Z87.891 Personal history of nicotine dependence; Z79.4 Long term (current) use of insulin; R94.31 Abnormal electrocardiogram [ECG] [EKG]; I51.7 Cardiomegaly; R91.8 Other nonspecific abnormal finding of lung field
CPT/HCPCS: 36415; 71045; 80053; 81001; 83690; 85025; 93005; 96361; 96374; 96375; 99284; J2270; J2765; J7030

== ENCOUNTER 2020-09-13 22:09 | Emergency (ER) | payer MEDICARE, SELFPAY ==
[2020-09-13 22:11] VITALS: BP 151/100; PULSE 111; RESP 16; TEMP 36.6; O2SAT 99
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
[2020-09-13] MEDS: diazePAM INJ (*CRX) 10 MG/2 ML SYRINGE 5 MG IV PUSH (22:40)
[2020-09-13] MEDS: DEXAMETHASONE SOD PHOS INJ 4 MG/ML VIAL 10 MG IV PUSH (22:40)
[2020-09-13] MEDS: KETOROLAC 30 MG/ML VIAL (*BKC) IV PUSH (22:40)
[2020-09-13] MEDS: MORPHINE SULFATE (*CRX) 4 MG/ML INJ IV PUSH (22:41)
[2020-09-13] MEDS: HYDROmorphone HCL INJ (*CRX) 1 MG/ML SYR IV PUSH (23:33)
[2020-09-14] MEDS: HYDROmorphone HCL INJ (*CRX) 1 MG/ML SYR IV PUSH (00:27)
[2020-09-14] MEDS: methocarbamoL 750 MG TABLET 1500 MG PO (00:27)
[2020-09-14] MEDS: LIDOCAINE 5% PATCH 1 PATCH TRANSDERM (00:27)
[2020-09-14 01:08] VITALS: BP 188/79; PULSE 98; RESP 16; TEMP 36.8; O2SAT 96
== END 2020-09-14 01:10 | disposition home or self-care (01) ==
PROVIDERS: Emergency Provider Emergency Medicine; PCP Family Medicine
DX: M79.605 Pain in left leg (principal); T87.89 Other complications of amputation stump; F41.9 Anxiety disorder, unspecified; M19.90 Unspecified osteoarthritis, unspecified site; J44.9 Chronic obstructive pulmonary disease, unspecified; I25.10 Atherosclerotic heart disease of native coronary artery without angina pectoris; M54.5 Low back pain; G89.29 Other chronic pain; F32.9 Major depressive disorder, single episode, unspecified; E11.9 Type 2 diabetes mellitus without complications; E78.5 Hyperlipidemia, unspecified; I10 Essential (primary) hypertension; G40.909 Epilepsy, unspecified, not intractable, without status epilepticus
CPT/HCPCS: 96374; 96375; 96376; 99284; A9270; J1100; J1170; J1885; J2270; J3360

== ENCOUNTER 2020-10-23 05:44 | Inpatient (IN) | payer MEDICARE, SELFPAY ==
[2020-10-23] VITALS (20 sets, daily range): BP systolic 135–185; BP diastolic 68–94; PULSE 74–96; RESP 16–24; TEMP 35.9–36.5; O2SAT 95–99; BMI 36.0
--- NOTE | ~2020-10-23 | CT_ITS ---
EXAMINATION: CT abdomen pelvis wo con EXAM DATE: 10/26/2020 15:47 INDICATION: Persistent left upper quadrant pain. TECHNIQUE: Spiral CT of the abdomen and pelvis was performed without contrast. Axial, coronal and s agittal images were reviewed. The dose-length product (DLP) for this examination was 1829.45 mGy-cm. The exposure was tailored according to patient size (auto mA exposure control), and iterative recon struction (ASIR) was used as additional dose reduction technique. Comparison is made to prior examina tion from 10/23/2020. FINDINGS: The liver, spleen, adrenal glands and pancreas are unremarkable. The gallbladder is modera tely distended, similar to prior study but otherwise unremarkable. There is no biliary duct dilation . Portal and splenic veins are patent. Kidneys enhance symmetrically. There is no hydronephrosis. The prostate is unremarkable. The bladder is unremarkable. There is no retroperitoneal or pelvic lymphadenopathy. There are no findings to suggest appendicitis. The stomach and small bowel are unremarkable. There is expected amount of colonic stool. No free intraperitoneal gas. The heart is normal in size. T here are no pericardial or pleural effusions. Interval development of scattered linear opacities consistent with multifocal atelectasis. There are multiple grayscale and the sternotomy wires. Clinical correlation for chronic sternal dehiscence. Th ere is extensive scattered arterial sclerotic disease. 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 Patient may have had left leg amputation. There are no osteoblastic or osteolytic lesions identified. IMPRESSION: 1. Moderately distended but otherwise unremarkable gallbladder. 2. Development of scattered linear basilar atelectasis. 3. 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 Reviewed, dictated and finalized at location A. TER PILOT
--- NOTE | ~2020-10-23 | XR_ITS ---
EXAMINATION: XR chest 1V portable DATE: 10/25/2020 06:03 INDICATION: Congestive heart failure. TECHNIQUE: A single frontal view of the chest was obtained. COMPARISON: Chest CT 08/08/2020, chest single view 10/23/2020 FINDINGS: There are patchy airspace opacities in all lung zones. No pleural effusion or pneumothorax. The heart size is normal. Median sternotomy wires and mediastinal surgical clips are seen, likely fr om prior coronary artery bypass grafting. IMPRESSION: 1. Diffuse lung disease with worsening in the upper lung zones and improvement in left midlung zone, consistent with pulmonary edema versus pneumonia. Reviewed, dictated and finalized at location A. OR SUPPORT ENGINEER
--- NOTE | ~2020-10-23 | US_ITS ---
EXAMINATION: US venous doppler LE RT DATE: 10/25/2020 11:19 INDICATION: Chest pain TECHNIQUE: Grayscale ultrasound images without and with compression and Doppler ultrasound images of the right lower extremity veins were obtained. COMPARISON: None. FINDINGS: The visualized portions of right common femoral vein, profunda (deep) femoral vein, femoral vein, pop liteal vein, peroneal trunk, posterior tibial veins, peroneal veins, gastrocnemius vein and greater s aphenous vein outflow are patent. IMPRESSION: 1. No deep venous thrombosis in the right lower limb. Reviewed, dictated and finalized at location B. E WORKER
--- NOTE | ~2020-10-23 | CT_ITS ---
EXAMINATION: CT abdomen pelvis w con DATE: 10/23/2020 08:09 INDICATION: Abdominal pain TECHNIQUE: Computed tomography (CT) of the abdomen and pelvis was performed . with 100 mL Omnipaque-3 50 intravenous contrast. Automated exposure control and iterative reconstruction technique were emplo yed. The dose-length product was 1745.26 mGy-cm. COMPARISON: 08/08/2020 FINDINGS: Small bilateral posteriorly layering pleural effusions. Mild pulmonary edema at the bilateral lung ba ses. Heart size is normal. No pericardial effusion. Median sternotomy wires and mediastinal surgical clips are seen, likely from prior coronary artery bypass grafting. Liver, gallbladder, spleen, pancre as, bilateral adrenal glands and kidneys are normal. Bowels are normal with moderate amount of coloni c stool. No bowel obstruction. The appendix is not visualized. No pericecal inflammatory change to graf ggest acute appendicitis. Bladder is normal. No free intraperitoneal gas or fluid. No pathologically enlarged abdominal or pelvic lymphadenopathy.. There is calcified atherosclerosis of the aorta and ma ny of the other arteries. Stenting of the right common iliac artery. 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 Left lower limb amputation at the level of the hip with secondary muscle atrophy a nd disuse osteopenia in the left hemipelvis. Old healed right superior and inferior pubic rami fractu res. IMPRESSION: 1. No acute intra-abdominal/pelvic process. 2. Mild bibasilar pulmonary edema and small bilateral pleural effusions. Reviewed, dictated and finalized at location B. NESS BANKER
--- NOTE | ~2020-10-23 | XR_ITS ---
EXAMINATION: XR chest 1V portable DATE: 10/23/2020 06:24 INDICATION: Chest pain. TECHNIQUE: A single frontal view of the chest was obtained. COMPARISON: Chest single view 08/10/2020, chest CT 08/08/2020 FINDINGS: There is a diffuse interstitial pattern in the lungs, consistent with mild pulmonary edema. No pleural effusion or pneumothorax. The heart size is normal. Median sternotomy wires and mediastin al surgical clips are seen, likely from prior coronary artery bypass grafting. IMPRESSION: 1. Mild pulmonary edema. Reviewed, dictated and finalized at location A. TH SERVICE WORKER IMPRESSION: 1. Mild pulmonary edema.
--- NOTE | ~2020-10-23 | XR_ITS ---
EXAMINATION: XR chest 1V portable DATE: 10/26/2020 05:56 INDICATION: Congestive heart failure. TECHNIQUE: A single frontal view of the chest was obtained. COMPARISON: Chest single view 10/25/2020, CT abdomen and pelvis 10/23/2020 FINDINGS: There is a diffuse interstitial pattern in the lungs. There are airspace opacities in the p erihilar regions. No pleural effusion or pneumothorax. The heart size is normal. Median sternotomy wi res and mediastinal surgical clips are seen, likely from prior coronary artery bypass grafting. IMPRESSION: 1. Stable diffuse lung disease, consistent with pulmonary edema versus pneumonia. Reviewed, dictated and finalized at location A. ANALYST IMPRESSION: 1. Stable diffuse lung disease, consistent with pulmonary edema versus pneumoni a.
--- NOTE | 2020-10-23 06:02 | ECG_ITS ---
Measurements Intervals [place] Rate: 89 P: 146 TX: 176 QRS: -10 QRSD: 89 T: 152 QT: 368 QTc: 448 Interpretive Statements ECTOPIC ATRIAL RHYTHM LEFT ATRIAL ENLARGEMENT DELAYED PRECORDIAL R/S TRANSITION INFERIOR INFARCT, AGE INDETERMINATE ST-T WAVE ABNORMALITY IN HIGH LATERAL LEADS- CONSIDER ISCHEMIA ABNORMAL ECG Electronically Signed On 10-23-2020 7:10:34 TENON MACHINE OPERATOR by Dylan Baker D.O.
[2020-10-23] MEDS: ASPIRIN 81 MG CHEWABLE TABLET 324 MG PO (06:10)
[2020-10-23 06:22] LABS: Basophils Percent Auto 0.3 % (0.2-1.2); Eosinophils Absolute Auto 0.3 K/mm3 (0-0.3); Eosinophils Percent Auto 3.5 % (0-4.4); Hematocrit 47.4 % (42.0-52.0); Hemoglobin 16.6 g/dL (14.0-18.0); Immature Granulocyte Absolute 0.02 K/mm3 (0.00-0.031); Immature Granulocyte Percent A 0.2 % (0-0.5); Lymphocytes Absolute Auto 2.87 K/mm3 (0.9-3.2); Lymphocytes Percent Auto 31.6 % (18.3-44.2); Mean Corpuscular Hemoglobin 33.5 pg (26-34); Mean Corpuscular Volume 95.8 fl (80-100); Mean Platelet Volume 11.1 fl (7.4-10.4); Monocytes Absolute Auto 1.2 K/mm3 (0.1-0.6); Monocytes Percent Auto 13.1 % (2.6-8.5); Neutrophils Absolute Auto 4.7 K/mm3 (1.3-6.7); Neutrophils Percent Auto 51.3 % (45.5-73.1); Platelet Count Result 257 k/mm3 (150-375); Red Blood Count 4.95 M/mm3 (4.6-6.20); Red Cell Distribution Width 12.4 % (11.5-14.5); White Blood Count 9.1 K/mm3 (4.5-10.0)
--- NOTE | 2020-10-23 06:32 | ED.CHESTPAIN ---
HPI - Chest Pain General Chief Complaint: Chest Pain <Matt Downing DO - Last Filed: 10/23/20 06:34> Stated Complaint: Chest pain, sob on exertion <Matt Downing DO - Last Filed: 10/23/20 06:34> Time Seen by Provider: 10/23/20 06:32 <Matt Downing DO - Last Filed: 10/23/20 06:34> Source: RN notes reviewed <Matt Downing DO - Last Filed: 10/23/20 06:34> History of Present Illness HPI narrative: Patient presents to emergency department from home for chest pain. Patient states that pain is located across the bilateral lower chest that wraps around his lower chest and upper abdomen into his back described as sharp and stabbing. States it began yesterday morning progressively worsen states associated with shortness of breath he denies any fevers or chills vomiting diarrhea or any other symptoms patient is followed by cardiology with Dr. Mccabe <Matt Downing DO - Last Filed: 10/23/20 06:34> Related Data Home Medications: Home Medications Medication Instructions Recorded Confirmed aspirin 81 mg tablet,delayed 81 mg PO DAILY 09/20/19 10/23/20 release nitroglycerin 0.4 mg sublingual 0.4 mg SUBLINGUAL Q5M PRN 09/20/19 10/23/20 tablet cholecalciferol (vitamin D3) 50 50 mcg PO DAILY 06/06/20 10/23/20 mcg (2,000 unit) capsule clopidogrel 75 mg PO DAILY 10/23/20 10/23/20 cyclobenzaprine 10 mg PO TID PRN 10/23/20 10/23/20 gabapentin 300 mg PO TID 10/23/20 10/23/20 lisinopril 5 mg PO DAILY 10/23/20 10/23/20 metoprolol tartrate 50 mg PO BIDWM 10/23/20 10/23/20 mupirocin See Rx Instructions .ROUTE .COMPLEX 10/23/20 10/23/20 nortriptyline 50 mg PO HS 10/23/20 10/23/20 simvastatin 40 mg PO QPM 10/23/20 10/23/20 <DO Aida Marcelo Last Filed: 10/23/20 06:34> Allergies/Adverse Reactions: Allergies Allergy/AdvReac Type Severity Reaction Status Date / Time No Known Allergies Allergy Verified 10/23/20 05:51 <Matt Downing DO - Last Filed: 10/23/20 06:34> Review of Systems Review of Systems: Narrative: Gen.: Denies fevers or chills ENT: Denies congestion Respiratory: Reports shortness of breath CV: See HPI GI: Reports upper abdominal pain denies nausea vomiting diarrhea Musculoskeletal: Denies back pain or muscle pain Neuro: Denies numbness, tingling, weakness or focal weakness Skin: Denies rash Except as documented, all other systems reviewed and negative <Matt Downing DO - Last Filed: 10/23/20 06:34> [facility] Past Medical History Medical History: Medical History (Updated 10/23/20 @ 18:51 by Kaycee Gordon MD) Angina at rest Anxiety Arthritis CAD (coronary artery disease) of artery bypass graft Chronic low back pain Chronic pain Depression Diabetes History of colon polyps Hyperlipidemia Hypertension Insomnia Left above-knee amputee Myocardial infarction Osteoarthritis involving joints of upper arms, bilateral Peripheral neuropathy Peripheral vascular disease Seizures Vitamin D deficiency <Matt Downing DO - Last Filed: 10/23/20 06:34> Surgical History Surgical History: Surgical History Above knee amputation of left lower extremity Amputation of left lower extremity 11/1985 H/O aortic valve replacement H/O cardiac catheterization H/O vascular surgery History of appendectomy Hx of CABG <Matt Downing DO - Last Filed: 10/23/20 06:34> Family History Family History: Family History Other No problems noted. <Matt Downing DO - Last Filed: 10/23/20 06:34> Social History Social History: Social History Social History: Patient is . He lives with his who is his POA. He is a full code. He previously smoked 1 pack per day times 35 years quitting 2 years ago. No current alcohol use. Smoking packs
[2020-10-23 06:33] LABS: Anion Gap 1 mmol/L (8-16); Blood Urea Nitrogen 17 mg/dL (9-20); Calcium 8.6 mg/dL (8.4-10.2); Carbon Dioxide 33 mmol/L (22-30); Chloride 103 mmol/L (98-107); Estimated CRCL calculation 120 ml/min; Estimated Glomerular Filt Rate > 60; Glucose 148 mg/dL (75-110); Potassium 4.3 mmol/L (3.4-5.0); Sodium 137 mmol/L (137-145)
[2020-10-23 06:48] LABS: INR 0.8; Prothrombin Time 12.1 Seconds (11.1-14.7)
[2020-10-23 06:50] LABS: Alanine Aminotransferase 79 U/L (4-50); Albumin Level 3.2 g/dL (3.5-5.1); Alkaline Phosphatase 263 U/L (38-126); Aspartate Amino Transferase 127 U/L (17-59); Bilirubin,Total 0.4 mg/dL (0.2-1.3); Lipase 56 U/L (23-300)
[2020-10-23 06:52] LABS: Troponin I 0.015 ng/mL (0.000-0.034)
[2020-10-23 07:02] LABS: NT Pro B Type Natriuretic Pept 755 PG/ML (5-100)
[2020-10-23] MEDS: MORPHINE SULFATE (*CRX) 2 MG/ML INJ IV PUSH (07:19)
[2020-10-23] MEDS: METOPROLOL TARTRATE 50 MG TAB PO ×2 (09:23→18:03)
[2020-10-23] MEDS: lisinopriL 5 MG TABLET PO (09:23)
[2020-10-23] MEDS: NITROGLYCERIN SL 0.4 MG TABLET SUBLINGUAL (09:24)
[2020-10-23] MEDS: PANTOPRAZOLE SODIUM IV 40 MG VIAL IV PUSH (09:55)
[2020-10-23] MEDS: FUROSEMIDE INJ 40 MG/4 ML VIAL IV PUSH (09:55)
[2020-10-23 10:11] LABS: Troponin I 0.014 ng/mL (0.000-0.034)
--- NOTE | 2020-10-23 11:04 | ADMGEN ---
This patient, Calvin Flores, was admitted to IMU Room 214-01. Patient/family oriented to hospital policies and general routines including ID bracelet, bed and alarms, visiting hours, pain management, procedures, bathroom and other care routines, personal items, smoking policy, room service/diet, and visiting hours. Information on how to activate the Rapid Response Team has been discussed. Patient/Family are encouraged to report perceived risks to care and to ask questions if they do not understand what they are told or what they should do.
[2020-10-23 12:49] LABS: Glucose Point of Care 208 (65-105)
[2020-10-23 12:55] LABS: Troponin I 0.017 ng/mL (0.000-0.034)
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
--- NOTE | 2020-10-23 16:40 | PM.IMHP ---
H&P: HPI History of Present Illness Date/Time: 10/23/20 16:40 Chief Complaint: Chest pain Narrative: Calvin Flores is a 55 year old male presented with chest pain known history of CABG, left AKA stump, diabetes mellitus insulin requiring, hypertension, coronary artery disease and hyperlipidemia. Pt states he feels SOB and intermittent chest pain. Cxr shows pulmonary edema. EKG shows t wave inversion. CT abdo shows nil acute in the abdomen. Trop is negative, LFTs are high. Seen by cardiology ischemic work up not indicated. Chest pain left upper ribs, no falls no cough mild sob, no fevers. Morphine helping. Pt takes pain medication at home MS 30, pt is on perocet prefer ms 30. Stump hurts. Review of Systems Review of Systems: All systems reviewed & are unremarkable except as noted in HPI and below PMFSH Past Medical History Medical History Angina at rest Anxiety Arthritis CAD (coronary artery disease) of artery bypass graft Chronic low back pain Chronic pain Depression Diabetes History of colon polyps Hyperlipidemia Hypertension Insomnia Left above-knee amputee Myocardial infarction Osteoarthritis involving joints of upper arms, bilateral Peripheral neuropathy Peripheral vascular disease Seizures Vitamin D deficiency Surgical History Surgical History Above knee amputation of left lower extremity Amputation of left lower extremity 11/1985 H/O aortic valve replacement H/O cardiac catheterization H/O vascular surgery History of appendectomy Hx of CABG Family History Family History Other No problems noted. Social History Social History Social History: Patient is . He lives with his who is his POA. He is a full code. He previously smoked 1 pack per day times 35 years quitting 2 years ago. No current alcohol use. Smoking packs per day: 1 Smoking cigarettes per day: 20.0 Years smoked: 35 Smoking pack-years: 35.00 Smoking status: Former smoker Tobacco type: cigarettes Second hand tobacco smoke exposure: No Smoking end date: 08/25/17 Additional smoking assessment comments: quit about 20 years ago, smoked one ppd Alcohol intake: never Substance use: never Gender identity (if verbalized by the patient): Male Spiritual care concerns: No Agree to blood products: Yes Meds Home Medications and Allergies Home Medications Medication Instructions Recorded Confirmed Type aspirin 81 mg tablet,delayed 81 mg PO DAILY 09/20/19 10/23/20 History release nitroglycerin 0.4 mg sublingual 0.4 mg SUBLINGUAL Q5M PRN 09/20/19 10/23/20 History tablet fluoxetine 40 mg capsule 80 mg PO QAM #180 cap 05/04/20 10/23/20 Rx cholecalciferol (vitamin D3) 50 50 mcg PO DAILY 06/06/20 10/23/20 History mcg (2,000 unit) capsule metformin 500 mg 24 hr 1,000 mg PO QPM #180 tablet 06/14/20 10/23/20 Rx tablet,extended release insulin human U-100 NPH-regulr See Rx Instructions .ROUTE 07/19/20 10/23/20 Rx 70-30 mix 100 unit/mL subcutaneous .COMPLEX #150 ml susp oxycodone-acetaminophen [Percocet] 1 tablet PO Q6H PRN #15 tablet 09/14/20 10/23/20 Rx gemfibrozil 600 mg tablet See Rx Instructions .ROUTE 09/25/20 10/23/20 Rx .COMPLEX #180 tablet clopidogrel 75 mg PO DAILY 10/23/20 10/23/20 History cyclobenzaprine 10 mg PO TID PRN 10/23/20 10/23/20 History gabapentin 300 mg PO TID 10/23/20 10/23/20 History lisinopril 5 mg PO DAILY 10/23/20 10/23/20 History metoprolol tartrate 50 mg PO BIDWM 10/23/20 10/23/20 History mupirocin See Rx Instructions .ROUTE .COMPLEX 10/23/20 10/23/20 History nortriptyline 50 mg PO HS 10/23/20 10/23/20 History simvastatin 40 mg PO QPM 10/23/20 10/23/20 History Allergies Allergy/AdvReac Type Severity Reaction Status Date / T
[2020-10-23 17:30] LABS: Glucose Point of Care 257 (65-105)
[2020-10-23] MEDS: metFORMIN HCL XR 500 MG TAB.SR.24H 1000 MG PO (18:03)
[2020-10-23] MEDS: GABAPENTIN 300 MG CAPSULE PO (18:03)
[2020-10-23] MEDS: oxyCODONE/ACETAMINOPHEN (*CRX) 5-325 MG TABLET 1 TABLET PO (18:09)
[2020-10-23] MEDS: INSULIN HUMAN ISOPHAN/REGULAR 70/30 (*BKC) 100 UNITS/ML 95 UNITS SUB-Q (18:10)
[2020-10-23 20:44] LABS: Glucose Point of Care 178 (65-105)
[2020-10-23] MEDS: MORPHINE SULFATE (*CRX) 4 MG/ML INJ IV PUSH (20:54)
[2020-10-23] MEDS: NORTRIPTYLINE HCL 25 MG CAPSULE 50 MG PO (20:55)
[2020-10-23] MEDS: CYCLOBENZAPRINE HCL 10 MG TABLET PO (20:55)
[2020-10-23] MEDS: ALPRAZolam (*CRX) 0.25 MG TABLET PO (20:55)
[2020-10-24] VITALS (20 sets, daily range): BP systolic 130–177; BP diastolic 55–86; PULSE 71–92; RESP 20–24; TEMP 36–36.8; O2SAT 96–100
--- NOTE | 2020-10-24 | ECHO_ITS ---
Patient Info Name: Calvin Flores Age: 55 years : 1965 Gender: Male Ht: 76 in Wt: 295 lbs BSA: 2.72 m2 BP: 130 / 55 mmHg Heart Rhythm: Sinus Rhythm Technical Quality: Poor Exam Date: 10/24/2020 10:02 AM Exam Location: [facility] Patient Status: Inpatient Admit Date: 10/23/2020 Staff Ordering Physician: Tarsha Pitt MD Supervisor [employer]: Chanell Daugherty RDCS Attending Provider: Krishan Laureano MD Referring Physician: Yoandy MAXWELL; Exam Type: CA echo dop color flow w con Study Info Indications I50.9 - Heart failure, unspecified Complete two-dimensional, color flow and Doppler transthoracic echocardiogram is performed with contrast to opacify the left ventricle and to improve the deliniation of the left ventricle endocardial borders. Contrast/Agitated Saline Contrast/Ag. Saline: Definity Amount: 2.00 ml Administered By: Yvette Mayer RN Reason for Poor Study: poor echocardiographic windows Summary 1. Moderately dilated left ventricle with moderate concentric hypertrophy and good systolic function of all segments. The estimated ejection fraction is 55-60%. Diastolic dysfunction is present. 2. Left atrial chamber dimension is mildly enlarged. 3. No pulmonary hypertension, estimated pulmonary arterial systolic pressure is 28 mmHg. 4. There is mild aortic atherosclerosis. 5. No significant valve disease. 6. Normal sinus rhythm. Left Ventricle Left ventricular chamber dimension is moderately enlarged. Left ventricular systolic function is normal, estimated at 55-60%. There is moderately increased left ventricular wall thickness. Left ventricular septal wall motion is normal. The left ventricular diastolic function is abnormal. Right Ventricle Right ventricular chamber dimension is normal. Right ventricular systolic function is normal. Left Atria Left atrial chamber dimension is mildly enlarged. Right Atria Right atrial chamber dimension is normal. Aortic Valve The aortic valve is trileaflet. There is no aortic valve sclerosis. There is no aortic valve stenosis. There is no aortic valve regurgitation. Pulmonic Valve The pulmonic valve is normal. There is no pulmonic valve stenosis. There is no pulmonic regurgitation. Mitral Valve The mitral valve has thickened leaflets and calcified annulus. There is no mitral valve stenosis. There is no mitral valve regurgitation. Tricuspid Valve The tricuspid valve leaflets are normal. There is no significant tricuspid valve stenosis. There is trace tricuspid valve regurgitation. No pulmonary hypertension, estimated pulmonary arterial systolic pressure is 28 mmHg. Pericardium/Pleural The pericardium appears normal. There is no pericardial effusion. Inferior Vena Cava Normal inferior vena cava with >50% collapse upon inspiration consistent with Empty right atrial pressure, 10 mmHg. Aorta The aortic root size at the sinus of Valsalva is normal. The prox ascending aorta size is normal. There is mild aortic atherosclerosis. Left Ventricular Outflow Tract Name Value Normal LVOT 2D LVOT Diameter 1.95 cm LVOT Doppler --
[2020-10-24 05:12] LABS: Basophils Percent Auto 0.3 % (0.2-1.2); Eosinophils Absolute Auto 0.2 K/mm3 (0-0.3); Eosinophils Percent Auto 2.4 % (0-4.4); Hematocrit 46.7 % (42.0-52.0); Hemoglobin 16.2 g/dL (14.0-18.0); Immature Granulocyte Absolute 0.02 K/mm3 (0.00-0.031); Immature Granulocyte Percent A 0.3 % (0-0.5); Lymphocytes Percent Auto 25.5 % (18.3-44.2); Mean Corpuscular HGB Conc 34.7 g/dl (32-36); Mean Corpuscular Hemoglobin 33.2 pg (26-34); Mean Corpuscular Volume 95.7 fl (80-100); Monocytes Percent Auto 13.9 % (2.6-8.5); Neutrophils Absolute Auto 4.1 K/mm3 (1.3-6.7); Neutrophils Percent Auto 57.6 % (45.5-73.1); Platelet Count Result 274 k/mm3 (150-375); Red Blood Count 4.88 M/mm3 (4.6-6.20); Red Cell Distribution Width 12.3 % (11.5-14.5); White Blood Count 7.1 K/mm3 (4.5-10.0)
[2020-10-24 06:53] LABS: Anion Gap 3 mmol/L (8-16); Blood Urea Nitrogen 14 mg/dL (9-20); Calcium 8.5 mg/dL (8.4-10.2); Carbon Dioxide 31 mmol/L (22-30); Chloride 105 mmol/L (98-107); Estimated CRCL calculation 131 ml/min; Estimated Glomerular Filt Rate > 60; Glucose 70 mg/dL (75-110); Sodium 139 mmol/L (137-145)
[2020-10-24] MEDS: METOPROLOL TARTRATE 50 MG TAB PO ×2 (07:55→16:43)
[2020-10-24] MEDS: oxyCODONE/ACETAMINOPHEN (*CRX) 5-325 MG TABLET 1 TABLET PO ×2 (07:59→16:37)
[2020-10-24 08:01] LABS: Glucose Point of Care 78 (65-105)
[2020-10-24] MEDS: ASPIRIN 81 MG ENTERIC TABLET PO (08:01)
[2020-10-24] MEDS: CLOPIDOGREL BISULFATE 75 MG TABLET PO (08:01)
[2020-10-24] MEDS: FLUoxetine HCL 20 MG CAPSULE 80 MG PO (08:02)
[2020-10-24] MEDS: lisinopriL 5 MG TABLET PO (08:02)
[2020-10-24] MEDS: GABAPENTIN 300 MG CAPSULE PO ×3 (08:02→16:42)
[2020-10-24] MEDS: LIDOCAINE 5% PATCH 1 PATCH TRANSDERM (08:04)
[2020-10-24] MEDS: FUROSEMIDE INJ 40 MG/4 ML VIAL IV PUSH ×2 (08:04→15:27)
[2020-10-24] MEDS: PANTOPRAZOLE SODIUM IV 40 MG VIAL IV PUSH (08:05)
[2020-10-24] MEDS: ENOXAPARIN 40 MG/0.4 ML SYRINGE SUB-Q (08:05)
--- NOTE | 2020-10-24 08:37 | PM.PNCARD ---
Progress Note: A&P Assessment and Plan (1) Chest pain: Code(s): R07.9 - Chest pain, unspecified Status: Acute Assessment and Plan: patient has been ruled out for [place], and is being managed medically for CAD. Continue dual antiplatelet therapy with aspirin and clopidogrel; beta-vera, LIDA-inhibitor and statin. (2) Peripheral vascular disease: Code(s): I73.9 - Peripheral vascular disease, unspecified Status: Acute Assessment and Plan: I spoke with patient and his about further evaluation of possible peripheral vascular disease. Patient states that he is already scheduled to see a physician at outside Hospital. He will discuss with his , and will think about following up with us. I provided the follow-up information including our office phone number. Patient verbalized understanding. Subjective Date/time seen: 10/24/20 08:37 Date of service-10/24/2020 interval history -patient reports mild chest discomfort. No dyspnea at rest. He has been ruled out for [place] by serial negative cardiac biomarkers. Exam Narrative: Exam Narrative: PHYSICAL EXAMINATION: GENERAL: Alert, oriented, no acute distress MENTAL STATUS: affect appropriate to mood EYES: Extraocular movements intact, no pallor EARS: External ears appear normal, hearing grossly normal NOSE: Normal and patent, no discharge MOUTH: Mucous membranes moist, tongue normal NECK: Supple, no JVD CHEST: Good respiratory effort, clear to auscultation HEART: Normal rate, regular rhythm, normal S1 and S2, no audible murmurs ABDOMEN: Soft, nontender NEUROLOGICAL: Alert, oriented, normal speech, no gross motor deficits MUSCULOSKELETAL: Left AKA; right leg erythema and superficial ulcers EXTREMITIES: left AKA PSYCHIATRIC: Normal mood, appropriate affect Objective Data Vital Signs Vital Signs: Vital Signs - 24 hr 10/23/20 09:23 10/23/20 09:24 10/23/20 09:29 Temperature Pulse Rate 93 93 93 Respiratory Rate 18 17 Blood Pressure 182/94 H 147/77 H Pulse Oximetry 99 95 10/23/20 09:34 10/23/20 09:36 10/23/20 10:25 Temperature Pulse Rate 94 96 90 Respiratory Rate 20 21 H 16 Blood Pressure 145/76 H 145/76 H 146/76 H Pulse Oximetry 95 99 10/23/20 11:00 10/23/20 11:47 10/23/20 12:00 Temperature 36.5 C 36.5 C Pulse Rate 75 75 87 Respiratory Rate 18 18 Blood Pressure 152/74 H 152/74 H Pulse Oximetry 99 10/23/20 13:08 10/23/20 14:00 10/23/20 16:00 Temperature 35.9 C L Pulse Rate 79 87 86 Respiratory Rate 24 H Blood Pressure 146/82 H Pulse Oximetry 10/23/20 17:41 10/23/20 18:00 10/23/20 18:03 Temperature 36.1 C L Pulse Rate 88 87 88 Respiratory Rate 20 Blood Pressure 175/68 H Pulse Oximetry 96 10/23/20 20:00 10/23/20 22:00 10/24/20 00:00 Temperature 36.2 C L 36.3 C L Pulse Rate 90 84 92 Respiratory Rate 20 20 Blood Pressure 135/82 144/86 H Pulse Oximetry 97 98 10/24/20 02:00 10/24/20 04:00 10/24/20 06:00 Temperature 36.8 C Pulse Rate 82 82 78 Respiratory Rate 20 Blood Pressure 130/55 L Pulse Oximetry 98 10/24/20 07:55 Temperature Pulse Rate 83 Respiratory Rate Blood Pressure Pulse Oximetry Intake/Output Intake/Output: Intake & Output 10/21/20 10/22/20 10/23/20 10/24/20 23:59 23:59 23:59 23:59 Intake Total 960 Output Total 2225 Balance 960 -2225 Meds/Results Medications: Active Medications Generic Name Dose Route Start Last Admin Trade Name Freq PRN Reason Stop Dose Admin Alprazolam 0.25 mg 10/23/20 17:02 10/23/20 20:55 Alprazolam (*Crx) 0.25 Mg Tablet PO 0.25 mg TID PRN Administration Anxiety Aspirin 81 mg 10/24/20 09:00 10/24/20 08:01 Aspirin 81 Mg Enteric Tablet PO 81 mg DAILY TJ Administration Clopidogrel Bisulfate 75 mg 10/24/20 09:00 10/24/20 08:01 Clopidogrel Bisulfate 75 Mg Tablet PO 75 mg DAILY TJ Administration Cyclobenzaprine HCl 10 mg 0
[2020-10-24] MEDS: PERFLUTREN LIPID MICROSPHERES 1.5 ML VIAL DILUTED TO 10 ML TOTAL VOLUME IV PUSH (10:32)
[2020-10-24 12:06] LABS: Glucose Point of Care 161 (65-105)
[2020-10-24] MEDS: ALPRAZolam (*CRX) 0.25 MG TABLET PO (12:39)
--- NOTE | 2020-10-24 14:10 | PM.IMPN ---
Progress Note: A&P Assessment and Plan (1) Atypical chest pain: Code(s): R07.89 - Other chest pain Status: Acute Assessment and Plan: Initally pain was in the left lower rib cage but ow midline lower chest. EKG showig ST-T wave changes in the high lateral leads but seen one year ago as well to suggest chronic. Troponin negative x3. Pain not likely to be cardiac in nature. Lipase normal and CT A/P normal as well. Consider PE although not hypoxic or tachycardic and CXR showing pulmonary edema so another diagnosis more likely. LFTs are high possibly from hepatic congestion. Will repeat lasix IV and repeat CXR in the morning. Appreciate cardiology input (2) CHF exacerbation: Code(s): I50.9 - Heart failure, unspecified Status: Acute Assessment and Plan: Patient is symptomatic with shortness of breath and chest pain. Suspect patient with mild CHF exacerbation with pulmonary edema noted on chest x-ray. BNP however only 755. He did have some improvement this morning but symptoms worsen. Echo this morning is pending. Appreciate cardiology input. Repeat Lasix. (3) CAD (coronary artery disease) of artery bypass graft: Qualifiers: Associated angina: without angina [place] vs. transplanted heart: [place] heart Qualified Code(s): I25.810 - Atherosclerosis of coronary artery bypass graft(s) without angina pectoris Code(s): I25.810 - Atherosclerosis of coronary artery bypass graft(s) without angina pectoris Status: Chronic Assessment and Plan: CAD with history of bypass surgery. Continue medical management with aspirin, Plavix, lisinopril, metoprolol. Zocor on hold due to elevated liver enzymes. (4) Diabetes: Qualifiers: Diabetes mellitus complication detail: with peripheral angiopathy without gangrene Diabetes mellitus complication status: with circulatory complication Diabetes mellitus termination clerk insulin use: with half-way use Diabetes mellitus type: type 2 Qualified Code(s): E11.51 - Type 2 diabetes mellitus with diabetic peripheral angiopathy without gangrene; Z79.4 - intermediate (current) use of insulin Code(s): E11.9 - Type 2 diabetes mellitus without complications Status: Acute Assessment and Plan: The patient's blood glucose was reviewed on / Glucose remains well controlled. Continue AccuCheks covering with sliding scale. Hypoglycemia protocol available as needed. Continue current medications. (5) Hypertension: Qualifiers: Hypertension type: essential hypertension Qualified Code(s): I10 - Essential (primary) hypertension Code(s): I10 - Essential (primary) hypertension Status: Acute Assessment and Plan: Patient's blood pressure was reviewed on 10/24 Blood pressure elevated at times. Will continue current medications for now and adjust tomorrow if persistently elevated. (6) Hyperlipidemia: Qualifiers: Hyperlipidemia type: unspecified Qualified Code(s): E78.5 - Hyperlipidemia, unspecified Code(s): E78.5 - Hyperlipidemia, unspecified Status: Acute Assessment and Plan: LFTs noted. Statin on hold (7) Peripheral vascular disease: Code(s): I73.9 - Peripheral vascular disease, unspecified Status: Acute Assessment and Plan: Patient is status post left AKA. He has plans to follow-up for further evaluation of his peripheral arterial disease. Check lipid panel. (8) DVT prophylaxis: Code(s): Z29.9 - Encounter for prophylactic measures, unspecified Status: Acute Assessment and Plan: Lovenox Subjective Date/time seen: 10/24/20 14:10 Interval history: Date of service 10/24/2020. 55-year-old male with history of CAD, DM and PAD here for complaints of chest pain. Patient complains of shortness of breath and chest pain today. Pain is mostly in the lower chest area more midline. It is associated with
[2020-10-24] MEDS: CYCLOBENZAPRINE HCL 10 MG TABLET PO ×2 (15:02→21:11)
[2020-10-24 16:47] LABS: Glucose Point of Care 196 (65-105)
[2020-10-24] MEDS: metFORMIN HCL XR 500 MG TAB.SR.24H 1000 MG PO (18:36)
[2020-10-24 19:44] LABS: Glucose Point of Care 299 (65-105)
[2020-10-24] MEDS: NORTRIPTYLINE HCL 25 MG CAPSULE 50 MG PO (21:10)
[2020-10-24] MEDS: MORPHINE SULFATE (*CRX) 4 MG/ML INJ IV PUSH (21:11)
[2020-10-24] MEDS: LORazepam (*CRX) 0.5 MG TABLET PO (21:11)
[2020-10-25] VITALS (16 sets, daily range): BP systolic 148–176; BP diastolic 66–83; PULSE 75–90; RESP 20–23; TEMP 35.9–36.7; O2SAT 94–98
[2020-10-25] MEDS: LORazepam (*CRX) 0.5 MG TABLET PO ×2 (02:51→21:09)
[2020-10-25] MEDS: MORPHINE SULFATE (*CRX) 4 MG/ML INJ IV PUSH ×3 (02:51→21:09)
[2020-10-25 05:34] LABS: Basophils Percent Auto 0.3 % (0.2-1.2); Eosinophils Absolute Auto 0.1 K/mm3 (0-0.3); Eosinophils Percent Auto 1.6 % (0-4.4); Hemoglobin 15.7 g/dL (14.0-18.0); Immature Granulocyte Absolute 0.02 K/mm3 (0.00-0.031); Immature Granulocyte Percent A 0.2 % (0-0.5); Lymphocytes Absolute Auto 2.64 K/mm3 (0.9-3.2); Lymphocytes Percent Auto 29.4 % (18.3-44.2); Mean Corpuscular HGB Conc 34.1 g/dl (32-36); Mean Corpuscular Hemoglobin 32.7 pg (26-34); Mean Corpuscular Volume 95.8 fl (80-100); Mean Platelet Volume 11.4 fl (7.4-10.4); Monocytes Absolute Auto 1.2 K/mm3 (0.1-0.6); Neutrophils Percent Auto 55.5 % (45.5-73.1); Platelet Count Result 260 k/mm3 (150-375); Red Cell Distribution Width 12.1 % (11.5-14.5)
[2020-10-25 07:02] LABS: Alanine Aminotransferase 76 U/L (4-50); Albumin Level 3.2 g/dL (3.5-5.1); Alkaline Phosphatase 237 U/L (38-126); Anion Gap 3 mmol/L (8-16); Aspartate Amino Transferase 103 U/L (17-59); Bilirubin,Total 0.6 mg/dL (0.2-1.3); Blood Urea Nitrogen 18 mg/dL (9-20); CRP 3.9 mg/dL (<1.0); Calcium 8.5 mg/dL (8.4-10.2); Carbon Dioxide 32 mmol/L (22-30); Chloride 99 mmol/L (98-107); Cholesterol 199 mg/dL (0-200); Estimated CRCL calculation 131 ml/min; Estimated Glomerular Filt Rate > 60; Glucose 255 mg/dL (75-110); HDL Direct 41 mg/dL; Lipase 98 U/L (23-300); Magnesium 1.5 mg/dL (1.6-2.3); Phosphorus 3.8 mg/dL (2.5-4.5); Potassium 3.9 mmol/L (3.4-5.0); Sodium 134 mmol/L (137-145); Triglycerides 265 mg/dL (<150)
[2020-10-25 07:12] LABS: LDL Cholesterol Direct 86 mg/dL
[2020-10-25 07:42] LABS: Glucose Point of Care 261 (65-105)
[2020-10-25] MEDS: INSULIN ASPART (*BKC) 100 UNITS/ML SUB-Q ×3 (09:05→17:14)
[2020-10-25] MEDS: FLUoxetine HCL 20 MG CAPSULE 80 MG PO (09:06)
[2020-10-25] MEDS: METOPROLOL TARTRATE 50 MG TAB PO ×2 (09:06→17:08)
[2020-10-25] MEDS: ASPIRIN 81 MG ENTERIC TABLET PO (09:06)
[2020-10-25] MEDS: CLOPIDOGREL BISULFATE 75 MG TABLET PO (09:06)
[2020-10-25] MEDS: ENOXAPARIN 40 MG/0.4 ML SYRINGE SUB-Q (09:06)
[2020-10-25] MEDS: LIDOCAINE 5% PATCH 1 PATCH TRANSDERM (09:07)
[2020-10-25] MEDS: PANTOPRAZOLE SODIUM IV 40 MG VIAL IV PUSH (09:07)
[2020-10-25] MEDS: lisinopriL 5 MG TABLET PO (09:07)
[2020-10-25] MEDS: GABAPENTIN 300 MG CAPSULE PO ×3 (09:07→17:09)
[2020-10-25] MEDS: FUROSEMIDE INJ 40 MG/4 ML VIAL IV PUSH ×2 (09:07→17:09)
[2020-10-25] MEDS: oxyCODONE/ACETAMINOPHEN (*CRX) 5-325 MG TABLET 1 TABLET PO ×2 (09:14→17:08)
--- NOTE | 2020-10-25 10:04 | PM.IMPN ---
Progress Note: A&P Assessment and Plan (1) Atypical chest pain: Code(s): R07.89 - Other chest pain Status: Acute Assessment and Plan: Pain mostly in the anterior left lower rib cage and toward the midline. EKG showing ST-T wave changes in the high lateral leads but seen one year ago as well to suggest chronic. Troponin negative x3. Pain not likely to be cardiac in nature. Lipase normal and CT A/P normal as well. Consider PE although not hypoxic or tachycardic and CXR showing pulmonary edema so another diagnosis more likely. LFTs are high possibly from hepatic congestion and are improving with diuresis. Consider pleurisy; no pericardial effusion to suggest pericarditis. Advance Lasix. Check RLE doppler. Appreciate cardiology input. RLE doppler negative (2) CHF exacerbation: Code(s): I50.9 - Heart failure, unspecified Status: Acute Assessment and Plan: Patient is symptomatic with shortness of breath and chest pain. Suspect patient with mild CHF exacerbation with pulmonary edema noted on chest x-ray. BNP however only 755. Echo showing moderately dilated LV with concentric LVH, EF 55-60% and diastolic dysfunction. Extra lasix given yesterday with good UOP of 3.2L. CXR today reviewed showing diffuse lung disease with worsening in the upper lung zones and improvement in left midlung zone. Still with the CP as above. Will continue diuresis and advance lasix to BID. Consider other etiolgies if CXR does not improve as expected. Appreciate cardiology input. (3) CAD (coronary artery disease) of artery bypass graft: Qualifiers: Associated angina: without angina [place] vs. transplanted heart: [place] heart Qualified Code(s): I25.810 - Atherosclerosis of coronary artery bypass graft(s) without angina pectoris Code(s): I25.810 - Atherosclerosis of coronary artery bypass graft(s) without angina pectoris Status: Chronic Assessment and Plan: CAD with history of bypass surgery. Continue medical management with aspirin, Plavix, lisinopril, metoprolol. Zocor on hold due to elevated liver enzymes. (4) Diabetes: Qualifiers: Diabetes mellitus complication detail: with peripheral angiopathy without gangrene Diabetes mellitus complication status: with circulatory complication Diabetes mellitus fpc insulin use: with fpc use Diabetes mellitus type: type 2 Qualified Code(s): E11.51 - Type 2 diabetes mellitus with diabetic peripheral angiopathy without gangrene; Z79.4 - shelter (current) use of insulin Code(s): E11.9 - Type 2 diabetes mellitus without complications Status: Acute Assessment and Plan: The patient's blood glucose was reviewed on 10/25 Glucose increasing now. Continue AccuCheks covering with sliding scale. Hypoglycemia protocol available as needed. Resume home insulin at lower dose. (5) Hypertension: Qualifiers: Hypertension type: essential hypertension Qualified Code(s): I10 - Essential (primary) hypertension Code(s): I10 - Essential (primary) hypertension Status: Acute Assessment and Plan: Patient's blood pressure was reviewed on 10/25 Systolic blood pressure elevated at times 140-170 range. Currently on Lisinopril and Metoprolol. Will continue current medications for now. Lasix advanced so may improve. (6) Hyperlipidemia: Qualifiers: Hyperlipidemia type: unspecified Qualified Code(s): E78.5 - Hyperlipidemia, unspecified Code(s): E78.5 - Hyperlipidemia, unspecified Status: Acute Assessment and Plan: LFTs better. Statin on hold (7) Peripheral vascular disease: Code(s): I73.9 - Peripheral vascular disease, unspecified Status: Acute Assessment and Plan: Patient is status post left AKA. LDL 86, HDL 41, TC 199, TG 265. He has plans to follow-up for further evaluation of his peripheral arterial disease. Cont
[2020-10-25] MEDS: MAGNESIUM SULF 2 GM/WATER 50ML 2 GM/50 ML BAG IVPB (11:36)
[2020-10-25] MEDS: CYCLOBENZAPRINE HCL 10 MG TABLET PO ×2 (11:36→21:09)
--- NOTE | 2020-10-25 12:12 | PM.PNCARD ---
Progress Note: A&P Assessment and Plan (1) Chest pain: Code(s): R07.9 - Chest pain, unspecified Status: Acute Assessment and Plan: Appears musculoskeletal or secondary to pleurisy. No pericardial or friction rub or effusion. 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 Consider short-term nonsteroidal trial? (2) CHF exacerbation: Code(s): I50.9 - Heart failure, unspecified Status: Acute Assessment and Plan: Acute diastolic CHF. X-ray looks a little worse since admission. However no pneumonia or elevated white count to suggest pneumonia. Has cardiomegaly but normal left ventricular systolic function. Diastolic dysfunction present. Diuresing with IV Lasix started 10/24/20 pm. (3) CAD (coronary artery disease): Code(s): I25.10 - Atherosclerotic heart disease of [place] coronary artery without angina pectoris Status: Acute Assessment and Plan: Patient has been ruled out for [place]. Continue dual antiplatelet therapy with aspirin and clopidogrel; beta-vera, LIDA-inhibitor and statin. (4) Peripheral vascular disease: Code(s): I73.9 - Peripheral vascular disease, unspecified Status: Acute Assessment and Plan: Pt is already scheduled to see a physician at outside Hospital. Dr. Rodriguez offered his vascular services if needed/desired. Subjective Date/time seen: 10/25/20 12:12 Interval history: Date of service 10/25 55-year-old male with history of CAD, DM and PAD here for complaints of chest pain. 10/24/2020: No change in the left lower and midline chest pain. Slept well last night flat in bed. Left chest tender to touch and pleuritic in nature. Good UOP. Has trouble moving around due to the pain. Date of Service 10/25/2020: Still with pain in the left lower rib area, hurts to move, hurts to breathe, hurts to hiccup, tender. No PND or orthopnea. Feels short of breath sometimes especially when the pain limits his breathing. Echo and chest x-ray as below. Review of Systems Constitutional: Constitutional: Reports difficulty sleeping ENT: Denies epistaxis and Denies nasal congestion Cardiovascular: Cardiovascular: Reports chest pain, Denies pedal edema and Denies leg edema Respiratory: Respiratory: Denies cough and Reports dyspnea Gastrointestinal: Gastrointestinal: Reports abdominal pain (Some epigastric and left upper quadrant discomfort at times) and Denies nausea Genitourinary: Genitourinary: Denies dysuria Musculoskeletal: Musculoskeletal: Denies back pain Integumentary/Breasts: Skin/Breast: Denies rash Neurologic: Denies confusion Psychiatric: Psychiatric: Denies behavioral changes Exam Narrative: Exam Narrative: Obese male in no distress Const: General: comfortable and no acute distress HENMT: General nose exam: no epistaxis Mouth: Yes moist mucous membranes Eyes: EOM: EOMs intact bilaterally Neck: Neck: supple Resp: Effort & Inspection: normal respiratory effort Auscultation: clear to auscultation bilaterally Cardio: Rate: regular rate Rhythm: regular rhythm Heart sounds: no murmurs Other: Does have a sternal click which he says has been present since his CABG. Some tenderness over the left lateral rib area GI: Inspection: non-distended GI Palp: Yes Soft to palpation, No Firmness to palpation present (GI) and No Tenderness to palpation present (GI) Skin: General skin exam: No normal color Other: Hyperpigmentation of the right lower extremity Neuro: Cognition (Neuro): normal cognition Speech: normal speech Motor exam (neuro): Normal motor muscle tone present throughout Extrem: General: no edema Other: Left lower extremity traumatic amputation Psych: Mental Status: mental status grossly normal Affect: normal affect Objective Data Vital Signs Vital Signs:
[2020-10-25 12:25] LABS: Glucose Point of Care 292 (65-105)
--- NOTE | 2020-10-25 14:05 | PCOTNOTE ---
Patient refusing OT evaluation this date due to increased pain and shortness of breath with movement. Patient continued to declined participation despite encouragement. Patient agreeable to attempting evaluation tomorrow.
[2020-10-25 16:30] LABS: Glucose Point of Care 252 (65-105)
[2020-10-25] MEDS: metFORMIN HCL XR 500 MG TAB.SR.24H 1000 MG PO (17:09)
[2020-10-25] MEDS: INSULIN HUMAN ISOPHAN/REGULAR 70/30 (*BKC) 100 UNITS/ML 60 UNITS SUB-Q (17:14)
[2020-10-25 20:18] LABS: Glucose Point of Care 290 (65-105)
[2020-10-25] MEDS: NORTRIPTYLINE HCL 25 MG CAPSULE 50 MG PO (21:08)
[2020-10-26] VITALS (13 sets, daily range): BP systolic 144–155; BP diastolic 57–87; PULSE 72–97; RESP 14–79; TEMP 36.1–36.6; O2SAT 91–97
[2020-10-26 05:30] LABS: Alanine Aminotransferase 70 U/L (4-50); Albumin Level 2.9 g/dL (3.5-5.1); Alkaline Phosphatase 220 U/L (38-126); Anion Gap 1 mmol/L (8-16); Aspartate Amino Transferase 102 U/L (17-59); Bilirubin,Total 0.4 mg/dL (0.2-1.3); Blood Urea Nitrogen 22 mg/dL (9-20); Carbon Dioxide 33 mmol/L (22-30); Chloride 96 mmol/L (98-107); Estimated CRCL calculation 131 ml/min; Estimated Glomerular Filt Rate > 60; Glucose 231 mg/dL (75-110); Magnesium 1.8 mg/dL (1.6-2.3); Potassium 3.7 mmol/L (3.4-5.0); Sodium 130 mmol/L (137-145)
[2020-10-26] MEDS: LORazepam (*CRX) 0.5 MG TABLET PO (05:36)
[2020-10-26] MEDS: MORPHINE SULFATE (*CRX) 4 MG/ML INJ IV PUSH ×2 (05:36→12:54)
[2020-10-26] MEDS: ASPIRIN 81 MG ENTERIC TABLET PO (08:12)
[2020-10-26] MEDS: oxyCODONE/ACETAMINOPHEN (*CRX) 5-325 MG TABLET 1 TABLET PO ×2 (08:12→18:07)
[2020-10-26] MEDS: METOPROLOL TARTRATE 50 MG TAB PO ×2 (08:12→18:08)
[2020-10-26] MEDS: CLOPIDOGREL BISULFATE 75 MG TABLET PO (08:12)
[2020-10-26] MEDS: FUROSEMIDE INJ 40 MG/4 ML VIAL IV PUSH ×2 (08:12→18:07)
[2020-10-26] MEDS: ENOXAPARIN 40 MG/0.4 ML SYRINGE SUB-Q (08:12)
[2020-10-26] MEDS: lisinopriL 10 MG TABLET PO (08:13)
[2020-10-26] MEDS: FLUoxetine HCL 20 MG CAPSULE 80 MG PO (08:13)
[2020-10-26] MEDS: LIDOCAINE 5% PATCH 1 PATCH TRANSDERM (08:13)
[2020-10-26] MEDS: PANTOPRAZOLE SODIUM IV 40 MG VIAL IV PUSH (08:13)
[2020-10-26] MEDS: GABAPENTIN 300 MG CAPSULE PO ×3 (08:13→18:08)
[2020-10-26] MEDS: INSULIN ASPART (*BKC) 100 UNITS/ML SUB-Q ×2 (08:23→12:53)
[2020-10-26] MEDS: INSULIN HUMAN ISOPHAN/REGULAR 70/30 (*BKC) 100 UNITS/ML 60 UNITS SUB-Q (08:24)
[2020-10-26 08:25] LABS: Glucose Point of Care 273 (65-105)
--- NOTE | 2020-10-26 10:25 | PCOTNOTE ---
OT/PT spoke with physician, patient at prior level of function and independent in functional tasks. Skilled OT services not warranted at this time. D/C from OT per physician
[2020-10-26 12:26] LABS: Glucose Point of Care 285 (65-105)
--- NOTE | 2020-10-26 13:38 | PM.IMPN ---
Progress Note: A&P Assessment and Plan (1) Atypical chest pain: Code(s): R07.89 - Other chest pain Status: Acute Assessment and Plan: Pain mostly in the anterior left lower rib cage and toward the midline. EKG showing ST-T wave changes in the high lateral leads but seen one year ago as well to suggest chronic. Troponin negative x3. Pain not likely to be cardiac in nature. Lipase normal and CT A/P normal as well. Consider PE although not hypoxic or tachycardic and CXR showing pulmonary edema so another diagnosis more likely. LFTs are high possibly from hepatic congestion and are improving with diuresis. Consider pleurisy; no pericardial effusion to suggest pericarditis. RLE doppler negative. Continue Lasix. Add naproxen. Currently on PPI (change to oral route). Repeat CT A/P. Appreciate cardiology input. CT A/P showing moderately distended but otherwise unremarkable gallbladder without any acute findings otherwise. Lungs showing scattered linear basilar atelectasis. (2) CHF exacerbation: Code(s): I50.9 - Heart failure, unspecified Status: Acute Assessment and Plan: Patient is symptomatic with shortness of breath and chest pain. Suspect patient with mild CHF exacerbation with pulmonary edema noted on chest x-ray. BNP however only 755. Echo showing moderately dilated LV with concentric LVH, EF 55-60% and diastolic dysfunction. CXR reviewed today reviewed showing stable diffuse lung disease. Still with the CP as above. Fluid balance positive yesterday. Will continue diuresis with IV Lasix BID. Fluid restrict. Check for COVID since minimal improvement. Appreciate cardiology input. (3) CAD (coronary artery disease) of artery bypass graft: Qualifiers: Associated angina: without angina [place] vs. transplanted heart: [place] heart Qualified Code(s): I25.810 - Atherosclerosis of coronary artery bypass graft(s) without angina pectoris Code(s): I25.810 - Atherosclerosis of coronary artery bypass graft(s) without angina pectoris Status: Chronic Assessment and Plan: CAD with history of bypass surgery. Continue medical management with aspirin, Plavix, lisinopril, metoprolol. Zocor on hold due to elevated liver enzymes. (4) Diabetes: Qualifiers: Diabetes mellitus complication detail: with peripheral angiopathy without gangrene Diabetes mellitus complication status: with circulatory complication Diabetes mellitus intermediate designer insulin use: with intermediate use Diabetes mellitus type: type 2 Qualified Code(s): E11.51 - Type 2 diabetes mellitus with diabetic peripheral angiopathy without gangrene; Z79.4 - technician terminal and repeater (current) use of insulin Code(s): E11.9 - Type 2 diabetes mellitus without complications Status: Acute Assessment and Plan: The patient's blood glucose was reviewed on 10/26 Glucose up and down. Continue AccuCheks covering with sliding scale. Hypoglycemia protocol available as needed. Decrease home insulin dose. (5) Hypertension: Qualifiers: Hypertension type: essential hypertension Qualified Code(s): I10 - Essential (primary) hypertension Code(s): I10 - Essential (primary) hypertension Status: Acute Assessment and Plan: Patient's blood pressure was reviewed on 10/26 Systolic blood pressure elevated at times 140-170 range. Currently on Lisinopril and Metoprolol. Will continue current medications for now. (6) Hyperlipidemia: Qualifiers: Hyperlipidemia type: unspecified Qualified Code(s): E78.5 - Hyperlipidemia, unspecified Code(s): E78.5 - Hyperlipidemia, unspecified Status: Acute Assessment and Plan: LFTs about the same. Statin on hold (7) Peripheral vascular disease: Code(s): I73.9 - Peripheral vascular disease, unspecified Status: Acute Assessment and Plan: Patient is status post left AKA. LDL 86, HDL 41, TC 1
[2020-10-26 16:59] LABS: Glucose Point of Care 66 (65-105)
[2020-10-26 16:59] LABS: Glucose Point of Care 66 (65-105)
[2020-10-26 16:59] LABS: Glucose Point of Care 81 (65-105)
[2020-10-26] MEDS: CYCLOBENZAPRINE HCL 10 MG TABLET PO (18:07)
--- NOTE | 2020-10-26 18:22 | PM.PNCARD ---
Progress Note: A&P Assessment and Plan (1) Chest pain: Code(s): R07.9 - Chest pain, unspecified Status: Acute Assessment and Plan: Appears musculoskeletal or secondary to pleurisy. Venous dopplar negative. No pericardial or friction rub or effusion. 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 Noted on today's CT scan. Starting Naproxyn. (2) CHF exacerbation: Code(s): I50.9 - Heart failure, unspecified Status: Acute Assessment and Plan: Acute diastolic CHF. X-ray looks a little worse since admission. However no pneumonia or elevated white count to suggest pneumonia. Has cardiomegaly but normal left ventricular systolic function. Diastolic dysfunction present. Diuresing with IV Lasix started 10/24/20 pm. (3) CAD (coronary artery disease): Code(s): I25.10 - Atherosclerotic heart disease of [place] coronary artery without angina pectoris Status: Acute Assessment and Plan: H/O CAD. Patient has been ruled out for IL. Continue dual antiplatelet therapy with aspirin and clopidogrel; beta-vera, LIDA-inhibitor and statin. (4) Peripheral vascular disease: Code(s): I73.9 - Peripheral vascular disease, unspecified Status: Acute Assessment and Plan: Pt is already scheduled to see a physician at outside Hospital. Dr. Rodriguez offered his vascular services if needed/desired. (5) Hypertension: Qualifiers: Hypertension type: essential hypertension Qualified Code(s): I10 - Essential (primary) hypertension Code(s): I10 - Essential (primary) hypertension Status: Acute Assessment and Plan: Running high; increased lisinopril 10/26/2020. (6) Hyponatremia: Code(s): E87.1 - Hypo-osmolality and hyponatremia Status: Acute Assessment and Plan: Developing hyponatremia w/ diuresis; check BMP daily. Subjective Date/time seen: 10/26/20 18:22 Interval history: Date of service 10/25 55-year-old male with history of CAD, DM and PAD here for complaints of chest pain. 10/24/2020: No change in the left lower and midline chest pain. Slept well last night flat in bed. Left chest tender to touch and pleuritic in nature. Good UOP. Has trouble moving around due to the pain. 10/25/2020: Still with pain in the left lower rib area, hurts to move, hurts to breathe, hurts to hiccup, tender. No PND or orthopnea. Feels short of breath sometimes especially when the pain limits his breathing. Date of service 10/26/2020: Still with pain in left lower rib area, hurts to move and breath. Not much SOB. Hasn't started Naprosyn yet. Review of Systems Constitutional: Constitutional: Reports no additional constitutional complaints Cardiovascular: Cardiovascular: Reports chest pain, Denies pedal edema, Denies leg edema, Denies lightheadedness and Denies palpitations Respiratory: Respiratory: Denies dyspnea and Denies dyspnea on exertion Gastrointestinal: Gastrointestinal: Reports abdominal pain (LUQ pain) Genitourinary: Genitourinary: Denies dysuria Musculoskeletal: Musculoskeletal: Denies back pain Integumentary/Breasts: Skin/Breast: Denies rash Neurologic: Denies confusion Psychiatric: Psychiatric: Denies confusion Exam Narrative: Exam Narrative: Obese male in no distress Const: General: no acute distress and uncomfortable; No confusion Orientation/consciousness: No confusion Other: Obese white male with high left lower extremity amputation who is relatively comfortable supine but having significant pain when he tries to change positions. HENMT: General nose exam: no epistaxis Mouth: Yes moist mucous membranes Eyes: EOM: EOMs intact bilaterally Neck: Neck: supple Resp: Effort &
[2020-10-26 20:28] LABS: Glucose Point of Care 224 (65-105)
[2020-10-26] MEDS: NORTRIPTYLINE HCL 25 MG CAPSULE 50 MG PO (21:23)
[2020-10-26] MEDS: NAPROXEN 500 MG TABLET PO (21:24)
[2020-10-27] VITALS (8 sets, daily range): BP systolic 125–147; BP diastolic 51–96; PULSE 59–80; RESP 18–20; TEMP 36–36.4; O2SAT 98–99
[2020-10-27] MEDS: oxyCODONE/ACETAMINOPHEN (*CRX) 5-325 MG TABLET 1 TABLET PO ×2 (03:48→12:48)
[2020-10-27] MEDS: CYCLOBENZAPRINE HCL 10 MG TABLET PO ×2 (03:48→12:48)
[2020-10-27] MEDS: LORazepam (*CRX) 0.5 MG TABLET PO (03:48)
[2020-10-27 04:59] LABS: Hematocrit 42.9 % (42.0-52.0); Hemoglobin 14.8 g/dL (14.0-18.0); Mean Corpuscular HGB Conc 34.5 g/dl (32-36); Mean Corpuscular Hemoglobin 32.5 pg (26-34); Mean Corpuscular Volume 94.1 fl (80-100); Mean Platelet Volume 11.1 fl (7.4-10.4); Platelet Count Result 292 k/mm3 (150-375); Red Blood Count 4.56 M/mm3 (4.6-6.20); Red Cell Distribution Width 11.9 % (11.5-14.5); White Blood Count 8.9 K/mm3 (4.5-10.0)
[2020-10-27 05:19] LABS: Alanine Aminotransferase 75 U/L (4-50); Alkaline Phosphatase 247 U/L (38-126); Anion Gap -1 mmol/L (8-16); Aspartate Amino Transferase 109 U/L (17-59); Bilirubin,Total 0.4 mg/dL (0.2-1.3); Blood Urea Nitrogen 24 mg/dL (9-20); Calcium 8.3 mg/dL (8.4-10.2); Carbon Dioxide 37 mmol/L (22-30); Chloride 95 mmol/L (98-107); Estimated CRCL calculation 106 ml/min; Estimated Glomerular Filt Rate > 60; Glucose 226 mg/dL (75-110); Potassium 3.9 mmol/L (3.4-5.0); Sodium 131 mmol/L (137-145)
[2020-10-27] MEDS: MORPHINE SULFATE (*CRX) 4 MG/ML INJ IV PUSH (05:20)
--- NOTE | 2020-10-27 05:32 | PC.NURSE ---
patient c/o severe midsternal, non-radiating chest pain. patient was asleep when i walked in and was snoring, patient then woke up in pain. morphine given. will continue to monitor.
[2020-10-27] MEDS: INSULIN ASPART (*BKC) 100 UNITS/ML SUB-Q ×2 (08:52→12:47)
[2020-10-27] MEDS: INSULIN HUMAN ISOPHAN/REGULAR 70/30 (*BKC) 100 UNITS/ML 50 UNITS SUB-Q (08:52)
[2020-10-27] MEDS: FLUoxetine HCL 20 MG CAPSULE 80 MG PO (08:57)
[2020-10-27] MEDS: PANTOPRAZOLE 40 MG TABLET PO (08:57)
[2020-10-27] MEDS: FUROSEMIDE INJ 40 MG/4 ML VIAL IV PUSH (08:57)
[2020-10-27] MEDS: GABAPENTIN 300 MG CAPSULE PO ×2 (08:58→12:48)
[2020-10-27] MEDS: lisinopriL 10 MG TABLET PO (08:58)
[2020-10-27] MEDS: ASPIRIN 81 MG ENTERIC TABLET PO (08:58)
[2020-10-27] MEDS: METOPROLOL TARTRATE 50 MG TAB PO (08:58)
[2020-10-27] MEDS: ENOXAPARIN 40 MG/0.4 ML SYRINGE SUB-Q (08:58)
[2020-10-27] MEDS: CLOPIDOGREL BISULFATE 75 MG TABLET PO (08:58)
[2020-10-27] MEDS: NAPROXEN 500 MG TABLET PO (08:58)
[2020-10-27] MEDS: LIDOCAINE 5% PATCH 1 PATCH TRANSDERM (08:59)
[2020-10-27] MEDS: EUCERIN CREAM 120 GM JAR 1 APPLIC TOPICAL (08:59)
[2020-10-27 09:25] LABS: Glucose Point of Care 247 (65-105)
[2020-10-27 12:57] LABS: Glucose Point of Care 210 (65-105)
[2020-10-27 13:21] LABS: SARS-CoV-2 RNA PCR Negative
--- NOTE | 2020-10-27 13:35 | PM.DS ---
DS: Admitting Diagnosis Admitting Diagnosis Admitting Diagnosis: chest pain DS: Discharge Diagnosis Discharge Diagnosis (1) Atypical chest pain: Code(s): R07.89 - Other chest pain Status: Acute Assessment and Plan: Pain mostly in the anterior left lower rib cage and toward the midline. EKG showing ST-T wave changes in the high lateral leads but seen one year ago as well to suggest this is a chronic finding. Troponin negative x3. Pain not likely to be cardiac in nature. Lipase normal and CT A/P normal as well. Consider PE although not hypoxic or tachycardic and CXR showing pulmonary edema so another diagnosis more likely. LFTs are elevated possibly from hepatic congestion and are improving with diuresis. No pericardial effusion to suggest pericarditis. RLE doppler negative. [place] he had pleurisy and naproxen added. Remained on protonix. (2) CHF exacerbation: Code(s): I50.9 - Heart failure, unspecified Status: Acute Assessment and Plan: Patient is symptomatic with shortness of breath and chest pain. Suspect patient with mild CHF exacerbation with pulmonary edema noted on chest x-ray. BNP however only 755. Echo showing moderately dilated LV with concentric LVH, EF 55-60% and diastolic dysfunction. Repeat CXR showing stable diffuse lung disease. Chest pain more likely pleurisy. COVID test negative. Treated with IV Lasix 40mg BID. Fluid restricted. Cardiology followed along. (3) CAD (coronary artery disease) of artery bypass graft: Qualifiers: Associated angina: without angina [place] vs. transplanted heart: [place] heart Qualified Code(s): I25.810 - Atherosclerosis of coronary artery bypass graft(s) without angina pectoris Code(s): I25.810 - Atherosclerosis of coronary artery bypass graft(s) without angina pectoris Status: Chronic Assessment and Plan: CAD with history of bypass surgery. Continue medical management with aspirin, Plavix, lisinopril, metoprolol. Zocor held due to elevated liver enzymes but resumed at discharge since this seems chronic (see below). (4) Diabetes: Qualifiers: Diabetes mellitus complication detail: with peripheral angiopathy without gangrene Diabetes mellitus complication status: with circulatory complication Diabetes mellitus usp insulin use: with [employer] use Diabetes mellitus type: type 2 Qualified Code(s): E11.51 - Type 2 diabetes mellitus with diabetic peripheral angiopathy without gangrene; Z79.4 - MCFP (current) use of insulin Code(s): E11.9 - Type 2 diabetes mellitus without complications Status: Acute Assessment and Plan: The patient's blood glucose was monitored closely. Glucose was up and down. He was monitored with Accu[employer]ks covering with sliding scale. Hypoglycemia protocol was available as needed. Home insulin regiment was decreased. (5) Hypertension: Qualifiers: Hypertension type: essential hypertension Qualified Code(s): I10 - Essential (primary) hypertension Code(s): I10 - Essential (primary) hypertension Status: Acute Assessment and Plan: Patient's blood pressure was monitored closely. Systolic blood pressure elevated at times 140-170 range. Currently on Lisinopril and Metoprolol. Lisinopril dose was increased. (6) Hyperlipidemia: Qualifiers: Hyperlipidemia type: unspecified Qualified Code(s): E78.5 - Hyperlipidemia, unspecified Code(s): E78.5 - Hyperlipidemia, unspecified Status: Acute Assessment and Plan: LDL 86, HDL 41, TC 199, TG 265. LFTs mildly elevated and appears chronic. Resume statin therapy. (7) Peripheral vascular disease: Code(s): I73.9 - Peripheral vascular disease, unspecified Status: Acute Assessment and Plan: Patient is status post left AKA. He has plans to follow-up for further evaluation of his peripheral arterial disease. Continu
[2020-10-29 17:33] LABS: Hepatitis C Viral RNA PCR 1040000 IU/mL
[2020-11-01 08:18] LABS: HCV Genotype, LiPA 1a
--- NOTE | 2020-11-03 08:17 | PC.NURSE ---
HEp C viral RNA elevated. Results shown to Dr. Laureano and faxed to Dr. Joce curran
--- NOTE | 2020-11-24 08:35 | PC.NURSE ---
Hepatitis C RNA log faxed to Dr. Bansal. Dr. Laureano aware of findings.
== END 2020-10-27 16:21 | disposition home or self-care (01) | DRG 193 ==
LOC: ANHED 07:50 → ANHIMU 09:35
PROVIDERS: Emergency Medicine; Admitting Provider Family Medicine; Emergency Provider General Practice; PCP Family Medicine; Visit Provider Internal Medicine
DX: R09.1 Pleurisy (principal); I50.33 Acute on chronic diastolic (congestive) heart failure; I25.810 Atherosclerosis of coronary artery bypass graft(s) without angina pectoris; E87.1 Hypo-osmolality and hyponatremia; I11.0 Hypertensive heart disease with heart failure; Z20.822 Contact with and (suspected) exposure to COVID-19; E11.51 Type 2 diabetes mellitus with diabetic peripheral angiopathy without gangrene; E78.5 Hyperlipidemia, unspecified; I73.9 Peripheral vascular disease, unspecified; M19.90 Unspecified osteoarthritis, unspecified site; F41.8 Other specified anxiety disorders; E55.9 Vitamin D deficiency, unspecified; E66.9 Obesity, unspecified; Z68.34 Body mass index [BMI] 34.0-34.9, adult; Z89.612 Acquired absence of left leg above knee; I25.2 Old myocardial infarction; Z79.4 Long term (current) use of insulin; Z95.2 Presence of prosthetic heart valve; Z90.49 Acquired absence of other specified parts of digestive tract; Z95.1 Presence of aortocoronary bypass graft; Z87.891 Personal history of nicotine dependence
CPT/HCPCS: 36415; 71045; 74176; 74177; 80048; 80053; 80061; 80076; 82948; 83690; 83735; 83880; 84100; 84484; 85025; 85027; 85610; 85730; 86140; 87522; 93005; 93971; 96365; 96372; 96374; 96375; 96376; 97161; 97164; 99285; A9270; C8929; C9113; C9803; G0378; J1650; J1815; J1940; J2270; J3475; Q9957; Q9967; U0003; U0005

== ENCOUNTER 2020-12-12 02:22 | Emergency (ER) | payer MEDICARE, SELFPAY ==
--- NOTE | ~2020-12-12 | XR_ITS ---
XR hip LT 2V w AP pelvis DATE: 12/12/2020 06:14 INDICATION: Left hip area pain TECHNIQUE: AP pelvis. Multiple views of left hip area. COMPARISON: None FINDINGS: Right iliac artery endovascular stent. Status post left lower extremity amputation at the left hip. There is chronic old left acetabular fra cture deformity. There are old fracture deformities of the right superior and inferior pubic rami. The pubic symphysis and sacroiliac joints appear intact. No pelvic bone destruction is evident. IMPRESSION: Status post amputation at the left hip Chronic fracture deformities of the left acetabulum and right superior and inferior pubic rami Reviewed, dictated and finalized at location A. IMPRESSION: Status post amputation at the left hip Chronic fracture deformities of the left acetabulum and right superior and infe rior pubic rami
[2020-12-12 02:28] VITALS: BP 155/68; PULSE 72; RESP 18; O2SAT 98
[2020-12-12 04:12] VITALS: BP 177/83; PULSE 74; RESP 16; O2SAT 96
[2020-12-12] MEDS: ONDANSETRON HCL ODT 4 MG TABLET PO (04:38)
[2020-12-12] MEDS: HYDROmorphone HCL INJ (*CRX) 1 MG/ML SYR IM (04:40)
[2020-12-12 05:05] VITALS: BP 155/70; PULSE 76; RESP 16; O2SAT 97
[2020-12-12 05:15] LABS: Basophils Percent Auto 0.5 % (0.2-1.2); Eosinophils Absolute Auto 0.3 K/mm3 (0-0.3); Eosinophils Percent Auto 3.6 % (0-4.4); Hematocrit 43.8 % (42.0-52.0); Hemoglobin 15.5 g/dL (14.0-18.0); Immature Granulocyte Absolute 0.03 K/mm3 (0.00-0.031); Immature Granulocyte Percent A 0.3 % (0-0.5); Lymphocytes Absolute Auto 3.21 K/mm3 (0.9-3.2); Lymphocytes Percent Auto 36.8 % (18.3-44.2); Mean Corpuscular HGB Conc 35.4 g/dl (32-36); Mean Corpuscular Hemoglobin 32.8 pg (26-34); Mean Corpuscular Volume 92.8 fl (80-100); Neutrophils Absolute Auto 4.2 K/mm3 (1.3-6.7); Neutrophils Percent Auto 47.8 % (45.5-73.1); Platelet Count Result 268 k/mm3 (150-375); Red Blood Count 4.72 M/mm3 (4.6-6.20); Red Cell Distribution Width 11.8 % (11.5-14.5); White Blood Count 8.7 K/mm3 (4.5-10.0)
[2020-12-12 05:27] LABS: Alanine Aminotransferase 51 U/L (4-50); Albumin Level 3.3 g/dL (3.5-5.1); Alkaline Phosphatase 233 U/L (38-126); Anion Gap 1 mmol/L (8-16); Aspartate Amino Transferase 79 U/L (17-59); Bilirubin,Total 0.2 mg/dL (0.2-1.3); Blood Urea Nitrogen 21 mg/dL (9-20); CRP 0.9 mg/dL (<1.0); Calcium 8.9 mg/dL (8.4-10.2); Carbon Dioxide 34 mmol/L (22-30); Chloride 96 mmol/L (98-107); Estimated CRCL calculation 129 ml/min; Estimated Glomerular Filt Rate > 60; Glucose 308 mg/dL (75-110); Sodium 131 mmol/L (137-145)
--- NOTE | 2020-12-12 06:04 | PC.NURSE ---
pt in XR
--- NOTE | 2020-12-12 06:47 | ED.EXTPRO ---
HPI - Extremity Problem General Chief complaint: Extremity Problem,Nontraumatic Stated complaint: Stump pain Time Seen by Provider: 12/12/20 04:21 Source: patient Mode of arrival: ambulatory Limitations: no limitations History of Present Illness HPI Narrative: This is a 55 year old male with history of DM, chronic left stump pain, and hypertension who presents for evaluation left stump pain. He reports he has been dealing with pain to his left stump for 30 years. He intermittently has severe flare ups in which his pain medication does not work. He has had severe pain for 2 days and he has been unable sleep. He denies any new injury, fever, chills, nausea, vomiting, swelling or redness. His pain is better if he applies pressure to his stump. He states he has had multiple evaluations for this pain. He has taken his oxycodone tonight for his pain without relief. Related Data Home Medications Medication Instructions Recorded Confirmed aspirin 81 mg tablet,delayed 81 mg PO DAILY 09/20/19 10/23/20 release nitroglycerin 0.4 mg sublingual 0.4 mg SUBLINGUAL Q5M PRN 09/20/19 10/23/20 tablet cholecalciferol (vitamin D3) 50 50 mcg PO DAILY 06/06/20 10/23/20 mcg (2,000 unit) capsule clopidogrel 75 mg PO DAILY 10/23/20 10/23/20 cyclobenzaprine 10 mg PO TID PRN 10/23/20 10/23/20 gabapentin 300 mg PO TID 10/23/20 10/23/20 metoprolol tartrate 50 mg PO BIDWM 10/23/20 10/23/20 mupirocin See Rx Instructions .ROUTE .COMPLEX 10/23/20 10/23/20 nortriptyline 50 mg PO HS 10/23/20 10/23/20 simvastatin 40 mg PO QPM 10/23/20 10/23/20 phenytoin sodium extended 100 mg 100 mg PO TID 11/14/20 capsule Allergies Allergy/AdvReac Type Severity Reaction Status Date / Time No Known Allergies Allergy Verified 12/12/20 02:25 Review of Systems Review of Systems: All systems reviewed & are unremarkable except as noted in HPI and below PMFSH Past Medical History Medical History Angina at rest Anxiety Arthritis Back pain CAD (coronary artery disease) CAD (coronary artery disease) of artery bypass graft CHF (congestive heart failure), NYHA class I Chronic low back pain Chronic pain Depression Diabetes H/O: HTN (hypertension) Heart disease History of colon polyps Hyperlipidemia Hypertension Insomnia Left above-knee amputee Myocardial infarction Osteoarthritis involving joints of upper arms, bilateral Peripheral neuropathy Peripheral vascular disease Seizure Seizures SOB (shortness of breath) Vitamin D deficiency Surgical History Surgical History Above knee amputation of left lower extremity Amputation of left lower extremity 11/1985 H/O aortic valve replacement H/O cardiac catheterization H/O vascular surgery History of appendectomy Hx of CABG Family History Family History Other No problems noted. Social History Social History Social History: Patient is . He lives with his who is his POA. He is a full code. He previously smoked 1 pack per day times 35 years quitting 2 years ago. No current alcohol use. Smoking packs per day: 1 Smoking cigarettes per day: 20.0 Years smoked: 35 Smoking pack-years: 35.00 Smoking status: Former smoker Tobacco type: cigarettes Second hand tobacco smoke exposure: No Smoking end date: 08/25/17 Additional smoking assessment comments: quit about 20 years ago, smoked one ppd Alcohol intake: never Substance use: never Gender identity (if verbalized by the patient): Male Spiritual care concerns: No Agree to blood products: Yes Exam Const: General: no acute distress and alert Orientation/consciousness: patient oriented x3 Eyes: EOM: EOMs intact bilaterally Chest: Chest palpation & inspection: normal inspection
[2020-12-12 06:57] VITALS: BP 150/71; PULSE 72; RESP 16; O2SAT 97
== END 2020-12-12 07:02 | disposition home or self-care (01) ==
PROVIDERS: Emergency Provider General Practice; PCP Family Medicine
DX: F41.9 Anxiety disorder, unspecified (principal); M19.90 Unspecified osteoarthritis, unspecified site; I25.10 Atherosclerotic heart disease of native coronary artery without angina pectoris; I11.0 Hypertensive heart disease with heart failure; I50.9 Heart failure, unspecified; F32.9 Major depressive disorder, single episode, unspecified; E11.9 Type 2 diabetes mellitus without complications; E78.5 Hyperlipidemia, unspecified; G40.909 Epilepsy, unspecified, not intractable, without status epilepticus; Z89.512 Acquired absence of left leg below knee
CPT/HCPCS: 36415; 73502; 80053; 85025; 86140; 96372; 99283; A9270; J1170

== ENCOUNTER 2020-12-26 09:05 | Emergency (ER) | payer MEDICARE, SELFPAY ==
[2020-12-26 09:09] VITALS: BP 167/106; PULSE 100; RESP 20; TEMP 36.6; O2SAT 98
--- NOTE | 2020-12-26 09:36 | ED.EXTPRO ---
HPI - Extremity Problem General Chief complaint: Extremity Problem,Nontraumatic Stated complaint: stump pain Time Seen by Provider: 12/26/20 09:09 Source: patient Mode of arrival: wheelchair Limitations: no limitations History of Present Illness HPI Narrative: Patient is a 55 year old male who presents with stump pain. Patient amputation of left leg related to accident. Patient reports stump pain for 30+ years. He reports he has intermittent flare ups of pain frequently. He reports increased pain for the past 2-3 days with inability to sleep. He reports taking ibuprofen without relief. He is also currently taking gabapentin and cyclobenzaprine without relief. He reports he normally takes oxycodone but is out . He reports he is trying to see new pain management physician but has not yet seen him. MD Complaint: extremity pain Related Data Home Medications Medication Instructions Recorded Confirmed aspirin 81 mg tablet,delayed 81 mg PO DAILY 09/20/19 10/23/20 release nitroglycerin 0.4 mg sublingual 0.4 mg SUBLINGUAL Q5M PRN 09/20/19 10/23/20 tablet cholecalciferol (vitamin D3) 50 50 mcg PO DAILY 06/06/20 10/23/20 mcg (2,000 unit) capsule clopidogrel 75 mg PO DAILY 10/23/20 10/23/20 cyclobenzaprine 10 mg PO TID PRN 10/23/20 10/23/20 gabapentin 300 mg PO TID 10/23/20 10/23/20 metoprolol tartrate 50 mg PO BIDWM 10/23/20 10/23/20 mupirocin See Rx Instructions .ROUTE .COMPLEX 10/23/20 10/23/20 nortriptyline 50 mg PO HS 10/23/20 10/23/20 simvastatin 40 mg PO QPM 10/23/20 10/23/20 phenytoin sodium extended 100 mg 100 mg PO TID 11/14/20 capsule Allergies Allergy/AdvReac Type Severity Reaction Status Date / Time No Known Allergies Allergy Verified 12/26/20 09:16 Review of Systems Review of Systems: Narrative: CONSTITUTIONAL: Denies fever, chills, or sweats. EYES: Denies visual changes, redness, or discharge. ENT: Denies rhinorrhea, congestion, sore throat, or otalgia. CARDIOVASCULAR: Denies chest pain, palpitations, or edema. RESPIRATORY: Denies cough or dyspnea. GASTROINTESTINAL: Denies abdominal pain, nausea, vomiting, or diarrhea. GENITOURINARY: Denies dysuria or hematuria. SKIN: Denies rash or itching. MUSCULOSKELETAL: Reports left stump pain NEUROLOGIC: Denies headache, numbness, dizziness, or weakness. PSYCHIATRIC: Denies anxiety or depression. [facility] Past Medical History Medical History Angina at rest Anxiety Arthritis Back pain CAD (coronary artery disease) CAD (coronary artery disease) of artery bypass graft CHF (congestive heart failure), NYHA class I Chronic low back pain Chronic pain Depression Diabetes H/O: HTN (hypertension) Heart disease History of colon polyps Hyperlipidemia Hypertension Insomnia Left above-knee amputee Myocardial infarction Osteoarthritis involving joints of upper arms, bilateral Peripheral neuropathy Peripheral vascular disease Seizure Seizures SOB (shortness of breath) Vitamin D deficiency Surgical History Surgical History Above knee amputation of left lower extremity Amputation of left lower extremity 11/1985 H/O aortic valve replacement H/O cardiac catheterization H/O vascular surgery History of appendectomy Hx of CABG Family History Family History Other No problems noted. Social History Social History Social History: Patient is . He lives with his who is his POA. He is a full code. He previously smoked 1 pack per day times 35 years quitting 2 years ago. No current alcohol use. Smoking packs per day: 1 Smoking cigarettes per day: 20.0 Years smoked: 35 Smoking pack-years: 35.00 Smoking status: Former smoker Tobacco type: cigarettes Second hand tobacco smoke exposure: No Smoking end date: 08/25/17
[2020-12-26] MEDS: ONDANSETRON HCL ODT 4 MG TABLET PO (09:50)
[2020-12-26] MEDS: HYDROmorphone HCL INJ (*CRX) 1 MG/ML SYR IM (09:50)
--- NOTE | 2020-12-26 09:50 | PC.NURSE ---
PT WRITHING ALL OVER BED AND RUBBING L BUTTOCK. UNABLE TO STAY STILL FOR LAB DRAW. WAS ABLE TO HOLD STILL LONG ENOUGH FOR IM PAIN MEDICATION.
--- NOTE | 2020-12-26 10:01 | PC.NURSE ---
929 I tried to collect blood draws but patient was far too shaky and in pain for me to even try. Told me he would not be comfortable with my attemp. Nurse has been notified.
[2020-12-26 11:08] LABS: Basophils Percent Auto 0.3 % (0.2-1.2); Eosinophils Absolute Auto 0.2 K/mm3 (0-0.3); Eosinophils Percent Auto 2.6 % (0-4.4); Hematocrit 47.3 % (42.0-52.0); Immature Granulocyte Absolute 0.02 K/mm3 (0.00-0.031); Immature Granulocyte Percent A 0.2 % (0-0.5); Lymphocytes Absolute Auto 2.52 K/mm3 (0.9-3.2); Lymphocytes Percent Auto 28.9 % (18.3-44.2); Mean Corpuscular HGB Conc 33.8 g/dl (32-36); Mean Corpuscular Hemoglobin 32.3 pg (26-34); Mean Corpuscular Volume 95.6 fl (80-100); Monocytes Absolute Auto 0.9 K/mm3 (0.1-0.6); Monocytes Percent Auto 9.9 % (2.6-8.5); Neutrophils Absolute Auto 5.1 K/mm3 (1.3-6.7); Neutrophils Percent Auto 58.1 % (45.5-73.1); Platelet Count Result 275 k/mm3 (150-375); Red Blood Count 4.95 M/mm3 (4.6-6.20); Red Cell Distribution Width 12.2 % (11.5-14.5); White Blood Count 8.7 K/mm3 (4.5-10.0)
[2020-12-26 11:20] LABS: Alanine Aminotransferase 55 U/L (4-50); Albumin Level 3.6 g/dL (3.5-5.1); Alkaline Phosphatase 210 U/L (38-126); Anion Gap 5 mmol/L (8-16); Aspartate Amino Transferase 83 U/L (17-59); Bilirubin,Total 0.6 mg/dL (0.2-1.3); Blood Urea Nitrogen 22 mg/dL (9-20); Calcium 9.1 mg/dL (8.4-10.2); Carbon Dioxide 25 mmol/L (22-30); Chloride 101 mmol/L (98-107); Estimated CRCL calculation 116 ml/min; Estimated Glomerular Filt Rate > 60; Glucose 342 mg/dL (75-110); Potassium 4.3 mmol/L (3.4-5.0); Sodium 131 mmol/L (137-145)
[2020-12-26 11:23] VITALS: BP 138/78; PULSE 78; RESP 18; O2SAT 99
== END 2020-12-26 11:25 | disposition home or self-care (01) ==
PROVIDERS: Emergency Provider Nurse Practitioner; PCP Family Medicine
DX: G54.6 Phantom limb syndrome with pain (principal); Z87.891 Personal history of nicotine dependence; F41.9 Anxiety disorder, unspecified; M19.90 Unspecified osteoarthritis, unspecified site; I25.10 Atherosclerotic heart disease of native coronary artery without angina pectoris; I11.0 Hypertensive heart disease with heart failure; I50.9 Heart failure, unspecified; F32.9 Major depressive disorder, single episode, unspecified; E11.9 Type 2 diabetes mellitus without complications; E78.5 Hyperlipidemia, unspecified; I25.2 Old myocardial infarction; G40.909 Epilepsy, unspecified, not intractable, without status epilepticus
CPT/HCPCS: 36415; 80053; 85025; 96372; 99283; A9270; J1170

== ENCOUNTER 2021-01-21 03:25 | Inpatient (IN) | payer MEDICARE, SELFPAY ==
[2021-01-21] VITALS (15 sets, daily range): BP systolic 149–193; BP diastolic 55–87; PULSE 70–102; RESP 16–30; TEMP 35.5–36.7; O2SAT 95–100; BMI 33.9
--- NOTE | ~2021-01-21 | CT_ITS ---
EXAMINATION: CTA chest PE protocol DATE: 01/21/2021 09:42 INDICATION: Pleuritic chest pain. Dyspnea. TECHNIQUE: Computed tomography angiography (CTA) of the chest was performed with 100 mL Omnipaque-350 intravenous contrast timed to evaluate the pulmonary arteries. Coronal maximum intensity projection 3D-reconstructions were created by the technologist. Automated exposure control and iterative reconst ruction technique were employed. The dose-length product was 1128.06 mGy-cm. COMPARISON: Chest CT 08/08/2020 FINDINGS: There is mild atelectasis bilaterally. No pleural effusion. The heart size is normal. There are coronary artery calcifications. There are changes of coronary artery bypass grafting. Chronic st ernal dehiscence is noted with numerous fractures of the sternotomy wires. There is no pulmonary embo tj. There is mild thoracic spondylosis. IMPRESSION: 1. No pulmonary embolus. Reviewed, dictated and finalized at location A. IMPRESSION: 1. No pulmonary embolus.
--- NOTE | ~2021-01-21 | XR_ITS ---
EXAMINATION: XR chest 2V DATE: 01/21/2021 04:12 INDICATION: Shortness of breath. Chest pain. TECHNIQUE: Frontal and lateral views of the chest were obtained on 3 radiographs. COMPARISON: Chest single view 10/26/2020, CT abdomen and pelvis 10/26/2020 FINDINGS: Again seen is small lung volumes with mild relative elevation of right hemidiaphragm. There is no pneumonia, pleural effusion, or pneumothorax. The heart size is normal. Median sternotomy wire s and mediastinal surgical clips are seen, likely from prior coronary artery bypass grafting. The med umesh sternotomy wires are broken. IMPRESSION: 1. Small lung volumes. Reviewed, dictated and finalized at location A. IMPRESSION: 1. Small lung volumes.
--- NOTE | 2021-01-21 03:31 | ECG_ITS ---
Measurements Intervals [place] Rate: 91 P: 46 MT: 185 QRS: -18 QRSD: 89 T: 115 QT: 357 QTc: 439 Interpretive Statements SINUS RHYTHM POSSIBLE LEFT ATRIAL ENLARGEMENT LEFT VENTRICULAR HYPERTROPHY AND ST-T CHANGE POOR R WAVE PROGRESSION, ANTERIOR LEADS INFERIOR INFARCT, AGE INDETERMINATE ST-T WAVE ABNORMALITY IN HIGH LATEAL LEADS- CONSIDER ISCHEMIA BASELINE ARTIFACT- I, II, III, AVR, AVL, AVF, V1-V6 ABNORMAL ECG Electronically Signed On 01-21-2021 5:54:41 CDT by Dylan Baker D.O.
[2021-01-21 03:49] LABS: Basophils Percent Auto 0.3 % (0.2-1.2); Eosinophils Absolute Auto 0.4 K/mm3 (0-0.3); Eosinophils Percent Auto 3.9 % (0-4.4); Hematocrit 44.8 % (42.0-52.0); Hemoglobin 15.6 g/dL (14.0-18.0); Immature Granulocyte Absolute 0.01 K/mm3 (0.00-0.031); Immature Granulocyte Percent A 0.1 % (0-0.5); Lymphocytes Absolute Auto 3.45 K/mm3 (0.9-3.2); Lymphocytes Percent Auto 37.5 % (18.3-44.2); Mean Corpuscular HGB Conc 34.8 g/dl (32-36); Mean Corpuscular Hemoglobin 32.9 pg (26-34); Mean Corpuscular Volume 94.5 fl (80-100); Mean Platelet Volume 11.7 fl (7.4-10.4); Monocytes Percent Auto 10.4 % (2.6-8.5); Neutrophils Absolute Auto 4.4 K/mm3 (1.3-6.7); Neutrophils Percent Auto 47.8 % (45.5-73.1); Platelet Count Result 271 k/mm3 (150-375); Red Blood Count 4.74 M/mm3 (4.6-6.20); White Blood Count 9.2 K/mm3 (4.5-10.0)
--- NOTE | 2021-01-21 03:52 | ED.CHESTPAIN ---
HPI - Chest Pain General Chief Complaint: Chest Pain Stated Complaint: water in chest cavity Time Seen by Provider: 01/21/21 03:28 History of Present Illness HPI narrative: Patient is a 55-year-old male who presents ER with chest pain or shortness of breath. Reports in the last hour he has developed some discomfort along the base of his right chest wrapping from the right back to the right front. It feels like the last time he had water in his chest. Cannot describe aggravating or alleviating factors. He is unsure if he is still taking Lasix or not. No new edema in his leg. Denies fevers or chills or sweats. No productive cough. Cannot identify any alleviating factors. Related Data Home Medications Medication Instructions Recorded Confirmed aspirin 81 mg tablet,delayed 81 mg PO DAILY 09/20/19 10/23/20 release nitroglycerin 0.4 mg sublingual 0.4 mg SUBLINGUAL Q5M PRN 09/20/19 10/23/20 tablet cholecalciferol (vitamin D3) 50 50 mcg PO DAILY 06/06/20 10/23/20 mcg (2,000 unit) capsule clopidogrel 75 mg PO DAILY 10/23/20 10/23/20 cyclobenzaprine 10 mg PO TID PRN 10/23/20 10/23/20 gabapentin 300 mg PO TID 10/23/20 10/23/20 metoprolol tartrate 50 mg PO BIDWM 10/23/20 10/23/20 mupirocin See Rx Instructions .ROUTE .COMPLEX 10/23/20 10/23/20 nortriptyline 50 mg PO HS 10/23/20 10/23/20 simvastatin 40 mg PO QPM 10/23/20 10/23/20 phenytoin sodium extended 100 mg 100 mg PO TID 11/14/20 capsule Allergies Allergy/AdvReac Type Severity Reaction Status Date / Time No Known Allergies Allergy Verified 12/26/20 09:16 Review of Systems Review of Systems: All systems reviewed & are unremarkable except as noted in HPI and below Constitutional: Constitutional: Denies chills and Denies fever(s) Cardiovascular: Cardiovascular: Reports chest pain, Denies rapid heart rate and Denies radiating jaw, neck or arm pain Respiratory: Respiratory: Reports chest congestion, Denies cough, Reports dyspnea and Denies wheezing Gastrointestinal: Gastrointestinal: Denies abdominal pain, Denies nausea and Denies vomiting Musculoskeletal: Comments: Phantom leg pain PMF Past Medical History Medical History Angina at rest Anxiety Arthritis Back pain CAD (coronary artery disease) CAD (coronary artery disease) of artery bypass graft CHF (congestive heart failure), NYHA class I Chronic low back pain Chronic pain Depression Diabetes H/O: HTN (hypertension) Heart disease History of colon polyps Hyperlipidemia Hypertension Insomnia Left above-knee amputee Myocardial infarction Osteoarthritis involving joints of upper arms, bilateral Peripheral neuropathy Peripheral vascular disease Seizure Seizures SOB (shortness of breath) Vitamin D deficiency Surgical History Surgical History Above knee amputation of left lower extremity Amputation of left lower extremity 11/1985 H/O aortic valve replacement H/O cardiac catheterization H/O vascular surgery History of appendectomy Hx of CABG Family History Family History Other No problems noted. Social History Social History Social History: Patient is . He lives with his who is his POA. He is a full code. He previously smoked 1 pack per day times 35 years quitting 2 years ago. No current alcohol use. Smoking packs per day: 1 Smoking cigarettes per day: 20.0 Years smoked: 35 Smoking pack-years: 35.00 Smoking status: Former smoker Tobacco type: cigarettes Second hand tobacco smoke exposure: No Smoking end date: 08/25/17 Additional smoking assessment comments: quit about 20 years ago, smoked one ppd Alcohol intake: never Substance use: never Gender identity (if verbalized by the patient): Male Spiritual care concerns:
[2021-01-21 03:53] LABS: INR 0.9; Prothrombin Time 12.3 Seconds (11.1-14.7)
[2021-01-21 03:54] LABS: Anion Gap 6 mmol/L (8-16); Blood Urea Nitrogen 25 mg/dL (9-20); Calcium 9.7 mg/dL (8.4-10.2); Carbon Dioxide 26 mmol/L (22-30); Chloride 97 mmol/L (98-107); Estimated Glomerular Filt Rate > 60; Glucose 494 mg/dL (75-110); Potassium 4.5 mmol/L (3.4-5.0); Sodium 129 mmol/L (137-145)
[2021-01-21 03:55] LABS: Partial Thromboplastin Time 25.8 SECONDS (22.3-36.8)
[2021-01-21] MEDS: ACETAMINOPHEN 325 MG TABLET 650 MG PO (03:57)
[2021-01-21 04:06] LABS: NT Pro B Type Natriuretic Pept 1010 pg/mL (5-100); Troponin I 0.021 ng/mL (0.000-0.034)
[2021-01-21] MEDS: FUROSEMIDE INJ 40 MG/4 ML VIAL IV PUSH (04:35)
[2021-01-21] MEDS: INSULIN HUMAN REGULAR (*BKC) 100 UNITS/ML 10 UNITS IV PUSH (04:38)
--- NOTE | 2021-01-21 05:30 | ADMGEN ---
This patient, Calvin Flores, was admitted to IMU Room 202-. Patient/family oriented to hospital policies and general routines including ID bracelet, bed and alarms, visiting hours, pain management, procedures, bathroom and other care routines, personal items, smoking policy, room service/diet, and visiting hours. Information on how to activate the Rapid Response Team has been discussed. Patient/Family are encouraged to report perceived risks to care and to ask questions if they do not understand what they are told or what they should do.
[2021-01-21 05:43] LABS: Glucose Point of Care 394 mg/dl (65-105)
[2021-01-21] MEDS: METOPROLOL TARTRATE INJ 5 MG/5 ML VIAL IV PUSH (06:48)
[2021-01-21 07:53] LABS: Glucose Point of Care 492 mg/dl (65-105)
--- NOTE | 2021-01-21 09:04 | PM.IMHP ---
H&P: HPI History of Present Illness Date/Time: 01/21/21 09:04 Chief Complaint: Right-sided chest pain and dyspnea Narrative: 55-year-old gentleman with history of type 2 diabetes coronary artery disease peripheral arterial disease congestive heart failure status post coronary bypass graft and aortic valve replacement with bioprosthetic valve and left AKA presents with 2 days of worsening constant moderate to severe right inframammary chest discomforts thirst radiates around to the back. Worse with breathing or movement. Associated shortness of breath. No noted swelling. Very sedentary due to left AKA up to hip over 30 years ago. Pain described as sharp. Better with rest or shallow breathing versus deeper breaths. Severe with portion off with his right arm. Does have dyspnea on exertion. Worse than baseline. Denied left-sided chest pain or pressure or any symptoms similar to his prior angina. Denied edema, orthopnea, PND. Denied palpitations syncope or presyncope. Denied change in bowel or bladder function or abnormal bleeding. Notes chronic pain and left stump area. Phantom pain radiating down from his hip. Severe. Random. Was on morphine extended release 30 mg twice daily in the past. States that is the only thing that helps. Evaluation by Pain Clinics and his primary physician have not yielded satisfactory results. Diabetes is moderately well controlled with blood sugars usually in the 150s to 170s. No hypoglycemia. Managed with b.i.d. 70 30 insulin. Gets around with a wheelchair. Transfers independently from bed to wheelchair. Falls if he tries uses crutches because of numbness on the right foot. Review of Systems Review of Systems: All systems reviewed & are unremarkable except as noted in HPI and below [facility] Past Medical History Medical History (Updated 01/21/21 @ 09:33 by Jorge Luis Brunner MD) Angina at rest Anxiety Arthritis Back pain CAD (coronary artery disease) CAD (coronary artery disease) of artery bypass graft CHF (congestive heart failure), NYHA class I Chronic hepatitis C Chronic low back pain Chronic pain Depression Diabetes H/O: HTN (hypertension) Heart disease History of colon polyps Hyperlipidemia Hypertension Insomnia Left above-knee amputee Myocardial infarction Osteoarthritis involving joints of upper arms, bilateral Peripheral neuropathy Peripheral vascular disease Seizure Seizures SOB (shortness of breath) Vitamin D deficiency Surgical History Surgical History Above knee amputation of left lower extremity Amputation of left lower extremity 11/1985 H/O aortic valve replacement H/O cardiac catheterization H/O vascular surgery History of appendectomy Hx of CABG Family History Family History (Updated 01/21/21 @ 09:11 by Jorge Luis Brunner MD) Other No problems noted. Father No problems noted. Mother No problems noted. Social History Social History (Updated 01/21/21 @ 09:13 by Jorge Luis Brunner MD) Social History: Patient is . He lives with his who is his POA. He is a full code. He previously smoked 1 pack per day times 30 years quitting 2018. No current alcohol use. Smokes cannabis about twice per week for pain control. Also uses CBD ointment. Smoking packs per day: 1 Smoking cigarettes per day: 20.0 Years smoked: 30 Smoking pack-years: 30.00 Smoking status: Former smoker Tobacco type: cigarettes Second hand tobacco smoke exposure: No Smoking end date: 08/25/17 Additional smoking assessment comments: quit about 20 years ago, smoked one ppd Alcohol intake: never Substance use: current Substance use type: marijuana Last use: 01/20/21 Living arrangements: with family 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ion: retired Gender identity (if verbalized by the patient): Male Spiritual care concerns: No Agree to blood products: Yes Meds Home Medications and Allergies
[2021-01-21] MEDS: ACETAMINOPHEN/CODEINE (*CRX) 300/30 MG TABLET 1 TAB PO ×2 (09:09→14:07)
[2021-01-21] MEDS: CYCLOBENZAPRINE HCL 10 MG TABLET PO ×2 (09:09→15:48)
[2021-01-21] MEDS: INSULIN HUMAN ISOPHAN/REGULAR 70/30 (*BKC) 100 UNITS/ML 50 UNITS SUB-Q (09:25)
[2021-01-21] MEDS: GABAPENTIN 300 MG CAPSULE PO (09:28)
[2021-01-21] MEDS: SIMVASTATIN 20 MG TABLET PO (09:28)
[2021-01-21] MEDS: PHENYTOIN SODIUM 100 MG CAP PO (09:28)
[2021-01-21] MEDS: CLOPIDOGREL BISULFATE 75 MG TABLET PO (09:28)
[2021-01-21] MEDS: gemfibroziL 600 MG TABLET PO ×2 (09:28→17:01)
[2021-01-21] MEDS: lisinopriL 5 MG TABLET PO (09:28)
[2021-01-21] MEDS: ASPIRIN 81 MG ENTERIC TABLET PO (09:28)
[2021-01-21] MEDS: FLUoxetine HCL 20 MG CAPSULE 80 MG PO (09:28)
[2021-01-21 09:49] LABS: Alanine Aminotransferase 52 U/L (4-50); Albumin Level 3.4 g/dL (3.5-5.1); Alkaline Phosphatase 267 U/L (38-126); Aspartate Amino Transferase 57 U/L (17-59); Bilirubin,Total 0.3 mg/dL (0.2-1.3); CRP 1.9 mg/dL (<1.0)
[2021-01-21 10:00] LABS: Troponin I 0.024 ng/mL (0.000-0.034)
[2021-01-21] MEDS: METOPROLOL TARTRATE 50 MG TAB PO ×2 (10:02→20:06)
[2021-01-21] MEDS: ENOXAPARIN 40 MG/0.4 ML SYRINGE SUB-Q (10:03)
[2021-01-21 10:20] LABS: D Dimer 1.21 ug/mL (<0.48)
[2021-01-21 10:38] LABS: Hemoglobin A1C 10.6 % (<5.7)
[2021-01-21 11:40] LABS: Glucose Point of Care 391 mg/dl (65-105)
--- NOTE | 2021-01-21 13:29 | PC.NURSE ---
This patient, Calvin Flores, was transferred to [facility] on 01/21/21 at 1315. Personal belongings sent with patient. Report given to Paola REA. Appropriate documentation sent with patient.
--- NOTE | 2021-01-21 13:58 | PC.NURSE ---
Received patient via bed from IMU. Patient settled in room. States pain is decreasing and no distress noted.
[2021-01-21] MEDS: GABAPENTIN 300 MG CAPSULE 600 MG PO ×2 (14:08→20:07)
[2021-01-21 17:00] LABS: Glucose Point of Care 319 mg/dl (65-105)
[2021-01-21 20:00] LABS: Glucose Point of Care > 500 mg/dl (65-105)
[2021-01-21] MEDS: INSULIN HUMAN ISOPHAN/REGULAR 70/30 (*BKC) 100 UNITS/ML 40 UNITS SUB-Q (20:06)
[2021-01-21] MEDS: NORTRIPTYLINE HCL 25 MG CAPSULE 50 MG PO (20:06)
[2021-01-21] MEDS: INSULIN ASPART (*BKC) 100 UNITS/ML 12 UNITS SUB-Q (21:00)
[2021-01-21 23:03] LABS: Glucose Point of Care 400 mg/dl (65-105)
[2021-01-21] MEDS: INSULIN ASPART (*BKC) 100 UNITS/ML 15 UNITS SUB-Q (23:15)
[2021-01-22] MEDS: GABAPENTIN 300 MG CAPSULE 600 MG PO ×3 (05:19→20:37)
[2021-01-22 05:30] LABS: Glucose Point of Care 77 mg/dl (65-105)
[2021-01-22 06:00] VITALS: BP 163/67; PULSE 65; RESP 16; TEMP 36; O2SAT 100
[2021-01-22 07:00] LABS: Creatinine Urine 47.6 mg/dL; Urea Random Urine 400 MG/DL
[2021-01-22 08:30] LABS: Hematocrit 41.1 % (42.0-52.0); Hemoglobin 14.5 g/dL (14.0-18.0); Mean Corpuscular HGB Conc 35.3 g/dl (32-36); Mean Corpuscular Hemoglobin 32.8 pg (26-34); Mean Platelet Volume 11.5 fl (7.4-10.4); Platelet Count Result 254 k/mm3 (150-375); Red Blood Count 4.42 M/mm3 (4.6-6.20); Red Cell Distribution Width 12.1 % (11.5-14.5); White Blood Count 6.7 K/mm3 (4.5-10.0)
[2021-01-22 09:16] LABS: Glucose Point of Care 194 mg/dl (65-105)
[2021-01-22 09:28] LABS: Alanine Aminotransferase 45 U/L (4-50); Alkaline Phosphatase 193 U/L (38-126); Anion Gap 5 mmol/L (8-16); Aspartate Amino Transferase 66 U/L (17-59); Bilirubin,Total 0.2 mg/dL (0.2-1.3); Blood Urea Nitrogen 18 mg/dL (9-20); Calcium 9.1 mg/dL (8.4-10.2); Carbon Dioxide 29 mmol/L (22-30); Chloride 101 mmol/L (98-107); Estimated CRCL calculation 128 ml/min; Estimated Glomerular Filt Rate > 60; Glucose 191 mg/dL (75-110); Magnesium 1.8 mg/dL (1.6-2.3); Potassium 4.1 mmol/L (3.4-5.0); Sodium 135 mmol/L (137-145)
[2021-01-22] MEDS: FUROSEMIDE INJ 40 MG/4 ML VIAL IV PUSH (09:39)
[2021-01-22] MEDS: ENOXAPARIN 40 MG/0.4 ML SYRINGE SUB-Q (09:39)
[2021-01-22 09:40] VITALS: PULSE 60
[2021-01-22] MEDS: SIMVASTATIN 20 MG TABLET PO (09:40)
[2021-01-22] MEDS: lisinopriL 5 MG TABLET PO (09:40)
[2021-01-22] MEDS: FLUoxetine HCL 20 MG CAPSULE 80 MG PO (09:40)
[2021-01-22] MEDS: PHENYTOIN SODIUM 100 MG CAP PO (09:40)
[2021-01-22] MEDS: ASPIRIN 81 MG ENTERIC TABLET PO (09:40)
[2021-01-22] MEDS: gemfibroziL 600 MG TABLET PO ×2 (09:40→16:29)
[2021-01-22] MEDS: METOPROLOL TARTRATE 50 MG TAB PO ×2 (09:40→20:39)
[2021-01-22] MEDS: CLOPIDOGREL BISULFATE 75 MG TABLET PO (09:40)
[2021-01-22] MEDS: INSULIN HUMAN ISOPHAN/REGULAR 70/30 (*BKC) 100 UNITS/ML 50 UNITS SUB-Q (09:49)
[2021-01-22 12:12] LABS: Glucose Point of Care 173 mg/dl (65-105)
--- NOTE | 2021-01-22 12:30 | PM.IMPN ---
Progress Note: A&P Assessment and Plan (1) Chest pain: Qualifiers: Chest pain type: chest pain on breathing Qualified Code(s): R07.1 - Chest pain on breathing Code(s): R07.9 - Chest pain, unspecified Status: Acute Assessment and Plan: 01/22/21 12:30 Patient is a 55-year-old male with history diabetes, hypertension, PVD, PAD, CABG, several other chronic commodities presented emergency department with a 2 day history of chest pain constant worsening with movement and deep breath, there is also associated shortness of breath, patient has a left AKA upto the hip over 30 years ago, patient has quite sedentary life and his wheelchair-bound, to further evaluate patient had CTA of the chest did not show any pulmonary emboli, nor there any associated infiltrate or pulmonary edema, however patient BNP was elevated on last admission as well as patient has a mild systolic and diastolic congestive heart failure patient is gently diuresed, most likely patient has musculoskeletal pain, as well as neuropathic pain, and phantom pain due to left AKA, patient gabapentin was increased from 300 mg t.i.d. to 600 mg t.i.d., today patient states pain is much better compared to when he arrived, denies any chest pain shortness palpitation fever or or chills, patient would like to use his wheelchair to move around, will have PT OT evaluate the patient and further recommendation to follow. (2) CHF exacerbation: Qualifiers: Heart failure type: diastolic Qualified Code(s): I50.33 - Acute on chronic diastolic (congestive) heart failure Code(s): I50.9 - Heart failure, unspecified Status: Acute Assessment and Plan: Patient with history of mild systolic dysfunction as well as diastolic dysfunction most likely patient acute on chronic combined systolic diastolic dysfunction patient is being diuresed, his symptoms are improved (3) Type 2 diabetes mellitus with hyperglycemia: Qualifiers: Diabetes mellitus computer terminal operator insulin use: with computer terminal operator use Qualified Code(s): E11.65 - Type 2 diabetes mellitus with hyperglycemia; Z79.4 - terminologist (current) use of insulin Code(s): E11.65 - Type 2 diabetes mellitus with hyperglycemia Status: Acute Assessment and Plan: Will continue regimen and monitor (4) Hyponatremia: Code(s): E87.1 - Hypo-osmolality and hyponatremia Status: Acute Assessment and Plan: Most likely secondary to hyperglycemia being corrected and sodium is improving (5) Hypertension: Qualifiers: Hypertension type: essential hypertension Qualified Code(s): I10 - Essential (primary) hypertension Code(s): I10 - Essential (primary) hypertension Status: Acute Assessment and Plan: Will continue home regimen and monitor (6) CAD (coronary artery disease) of artery bypass graft: Qualifiers: [place] vs. transplanted heart: [place] heart Associated angina: without angina Qualified Code(s): I25.810 - Atherosclerosis of coronary artery bypass graft(s) without angina pectoris Code(s): I25.810 - Atherosclerosis of coronary artery bypass graft(s) without angina pectoris Status: Chronic Assessment and Plan: Patient with a chest 3 sets of cardiac enzymes are negative there are no acute changes on EKG unlikely acute coronary syndrome (7) Amputation stump pain: Code(s): T87.89 - Other complications of amputation stump; M79.609 - Pain in unspecified limb Status: Acute Assessment and Plan: Chronic (8) Peripheral vascular disease: Code(s): I73.9 - Peripheral vascular disease, unspecified Status: Acute Assessment and Plan: Chronic (9) Peripheral neuropathy: Qualifiers: Peripheral neuropathy type: polyneuropathy, unspecified Qualified Code(s): G62.9 - Polyneuropathy, unspecified Code(s): G62.9 - Polyneuropathy, unspecified Status: Acute Assessment
[2021-01-22 14:00] VITALS: BP 124/67; PULSE 67; RESP 16; TEMP 36.3; O2SAT 99
[2021-01-22 16:16] LABS: Glucose Point of Care 168 mg/dl (65-105)
[2021-01-22] MEDS: INSULIN HUMAN ISOPHAN/REGULAR 70/30 (*BKC) 100 UNITS/ML 40 UNITS SUB-Q (20:38)
[2021-01-22 20:39] VITALS: PULSE 70
[2021-01-22] MEDS: NORTRIPTYLINE HCL 25 MG CAPSULE 50 MG PO (20:39)
[2021-01-22 21:29] VITALS: BP 152/61; PULSE 70; RESP 16; TEMP 36.8; O2SAT 98
[2021-01-22 21:38] LABS: Glucose Point of Care 280 mg/dl (65-105)
[2021-01-23 05:00] LABS: Hematocrit 42.8 % (42.0-52.0); Hemoglobin 14.8 g/dL (14.0-18.0); Mean Corpuscular HGB Conc 34.6 g/dl (32-36); Mean Corpuscular Hemoglobin 32.6 pg (26-34); Mean Corpuscular Volume 94.3 fl (80-100); Mean Platelet Volume 11.2 fl (7.4-10.4); Platelet Count Result 247 k/mm3 (150-375); Red Blood Count 4.54 M/mm3 (4.6-6.20); Red Cell Distribution Width 12.2 % (11.5-14.5); White Blood Count 6.9 K/mm3 (4.5-10.0)
[2021-01-23 05:20] LABS: Anion Gap 3 mmol/L (8-16); Blood Urea Nitrogen 22 mg/dL (9-20); Calcium 8.6 mg/dL (8.4-10.2); Carbon Dioxide 29 mmol/L (22-30); Chloride 104 mmol/L (98-107); Estimated CRCL calculation 128 ml/min; Estimated Glomerular Filt Rate > 60; Glucose 137 mg/dL (75-110); Sodium 136 mmol/L (137-145)
[2021-01-23 05:41] VITALS: BP 149/66; PULSE 68; RESP 16; TEMP 36.3; O2SAT 97
[2021-01-23] MEDS: GABAPENTIN 300 MG CAPSULE 600 MG PO ×3 (06:19→21:06)
[2021-01-23 07:28] LABS: Glucose Point of Care 149 mg/dl (65-105)
[2021-01-23] MEDS: ASPIRIN 81 MG ENTERIC TABLET PO (08:57)
[2021-01-23] MEDS: CLOPIDOGREL BISULFATE 75 MG TABLET PO (08:58)
[2021-01-23] MEDS: FUROSEMIDE INJ 40 MG/4 ML VIAL IV PUSH (08:58)
[2021-01-23] MEDS: gemfibroziL 600 MG TABLET PO ×2 (08:58→16:36)
[2021-01-23] MEDS: FLUoxetine HCL 20 MG CAPSULE 80 MG PO (08:58)
[2021-01-23] MEDS: ENOXAPARIN 40 MG/0.4 ML SYRINGE SUB-Q (08:58)
[2021-01-23] MEDS: lisinopriL 5 MG TABLET PO (08:58)
[2021-01-23] MEDS: SIMVASTATIN 20 MG TABLET PO (08:59)
[2021-01-23] MEDS: PHENYTOIN SODIUM 100 MG CAP PO (08:59)
[2021-01-23] MEDS: INSULIN HUMAN ISOPHAN/REGULAR 70/30 (*BKC) 100 UNITS/ML 50 UNITS SUB-Q (09:02)
[2021-01-23 09:09] VITALS: PULSE 68
[2021-01-23] MEDS: METOPROLOL TARTRATE 50 MG TAB PO ×2 (09:09→21:06)
[2021-01-23 11:47] LABS: Glucose Point of Care 324 mg/dl (65-105)
[2021-01-23] MEDS: INSULIN ASPART (*BKC) 100 UNITS/ML SUB-Q (11:59)
--- NOTE | 2021-01-23 12:53 | PM.IMPN ---
Progress Note: A&P Assessment and Plan (1) Chest pain: Qualifiers: Chest pain type: chest pain on breathing Qualified Code(s): R07.1 - Chest pain on breathing Code(s): R07.9 - Chest pain, unspecified Status: Acute Assessment and Plan: 01/22/21 12:30 Patient is a 55-year-old male with history diabetes, hypertension, PVD, PAD, CABG, several other chronic commodities presented emergency department with a 2 day history of chest pain constant worsening with movement and deep breath, there is also associated shortness of breath, patient has a left AKA upto the hip over 30 years ago, patient has quite sedentary life and his wheelchair-bound, to further evaluate patient had CTA of the chest did not show any pulmonary emboli, nor there any associated infiltrate or pulmonary edema, however patient BNP was elevated on last admission as well as patient has a mild systolic and diastolic congestive heart failure patient is gently diuresed, most likely patient has musculoskeletal pain, as well as neuropathic pain, and phantom pain due to left AKA, patient gabapentin was increased from 300 mg t.i.d. to 600 mg t.i.d., today patient states pain is much better compared to when he arrived, denies any chest pain shortness palpitation fever or or chills, patient would like to use his wheelchair to move around, will have PT OT evaluate the patient and further recommendation to follow. (2) CHF exacerbation: Qualifiers: Heart failure type: diastolic Qualified Code(s): I50.33 - Acute on chronic diastolic (congestive) heart failure Code(s): I50.9 - Heart failure, unspecified Status: Acute Assessment and Plan: Patient with history of mild systolic dysfunction as well as diastolic dysfunction most likely patient acute on chronic combined systolic diastolic dysfunction patient is being diuresed, his symptoms are improved (3) Type 2 diabetes mellitus with hyperglycemia: Qualifiers: Diabetes mellitus laborer marine terminal insulin use: with laborer marine terminal use Qualified Code(s): E11.65 - Type 2 diabetes mellitus with hyperglycemia; Z79.4 - terminal superintendent (current) use of insulin Code(s): E11.65 - Type 2 diabetes mellitus with hyperglycemia Status: Acute Assessment and Plan: Will continue regimen and monitor (4) Hyponatremia: Code(s): E87.1 - Hypo-osmolality and hyponatremia Status: Acute Assessment and Plan: Most likely secondary to hyperglycemia being corrected and sodium is improving Improved Increased water restriction to 1500 today (5) Hypertension: Qualifiers: Hypertension type: essential hypertension Qualified Code(s): I10 - Essential (primary) hypertension Code(s): I10 - Essential (primary) hypertension Status: Acute Assessment and Plan: Will continue home regimen and monitor (6) CAD (coronary artery disease) of artery bypass graft: Qualifiers: Associated angina: without angina [place] vs. transplanted heart: [place] heart Qualified Code(s): I25.810 - Atherosclerosis of coronary artery bypass graft(s) without angina pectoris Code(s): I25.810 - Atherosclerosis of coronary artery bypass graft(s) without angina pectoris Status: Chronic Assessment and Plan: Patient with a chest 3 sets of cardiac enzymes are negative there are no acute changes on EKG unlikely acute coronary syndrome (7) Amputation stump pain: Code(s): T87.89 - Other complications of amputation stump; M79.609 - Pain in unspecified limb Status: Acute Assessment and Plan: Chronic States no pain today. PT/OT (8) Peripheral vascular disease: Code(s): I73.9 - Peripheral vascular disease, unspecified Status: Acute Assessment and Plan: Chronic Stable (9) Peripheral neuropathy: Qualifiers: Peripheral neuropathy type: polyneuropathy, unspecified Qualified Code(s): G62.9 - Polyneuropathy, unspecified
[2021-01-23] MEDS: ACETAMINOPHEN/CODEINE (*CRX) 300/30 MG TABLET 1 TAB PO (15:14)
[2021-01-23 16:00] VITALS: BP 112/57; PULSE 61; RESP 16; TEMP 36.4; O2SAT 99
[2021-01-23 16:41] LABS: Glucose Point of Care 150 mg/dl (65-105)
[2021-01-23] MEDS: polyethylene glycoL 3350 17 GM POWD.PACK PO (18:18)
[2021-01-23 20:26] VITALS: BP 143/77; PULSE 75; RESP 16; TEMP 36.4; O2SAT 99
[2021-01-23] MEDS: INSULIN HUMAN ISOPHAN/REGULAR 70/30 (*BKC) 100 UNITS/ML 40 UNITS SUB-Q (21:03)
[2021-01-23 21:06] VITALS: PULSE 75
[2021-01-23] MEDS: NORTRIPTYLINE HCL 25 MG CAPSULE 50 MG PO (21:06)
[2021-01-23 21:13] LABS: Glucose Point of Care 406 mg/dl (65-105)
[2021-01-24] MEDS: GABAPENTIN 300 MG CAPSULE 600 MG PO ×3 (05:41→21:36)
[2021-01-24 05:43] LABS: Hematocrit 41.5 % (42.0-52.0); Hemoglobin 14.4 g/dL (14.0-18.0); Mean Corpuscular HGB Conc 34.7 g/dl (32-36); Mean Corpuscular Hemoglobin 32.3 pg (26-34); Mean Platelet Volume 11.4 fl (7.4-10.4); Platelet Count Result 240 k/mm3 (150-375); Red Blood Count 4.46 M/mm3 (4.6-6.20); Red Cell Distribution Width 11.9 % (11.5-14.5); White Blood Count 6.6 K/mm3 (4.5-10.0)
[2021-01-24 06:00] VITALS: BP 145/67; PULSE 69; RESP 16; TEMP 36.4; O2SAT 97
[2021-01-24 06:01] LABS: Anion Gap 6 mmol/L (8-16); Blood Urea Nitrogen 21 mg/dL (9-20); Calcium 8.2 mg/dL (8.4-10.2); Carbon Dioxide 28 mmol/L (22-30); Chloride 102 mmol/L (98-107); Estimated CRCL calculation 144 ml/min; Estimated Glomerular Filt Rate > 60; Glucose 188 mg/dL (75-110); Sodium 136 mmol/L (137-145)
[2021-01-24 07:42] LABS: Glucose Point of Care 192 mg/dl (65-105)
[2021-01-24] MEDS: CLOPIDOGREL BISULFATE 75 MG TABLET PO (07:48)
[2021-01-24] MEDS: FLUoxetine HCL 20 MG CAPSULE 80 MG PO (07:48)
[2021-01-24] MEDS: ASPIRIN 81 MG ENTERIC TABLET PO (07:48)
[2021-01-24] MEDS: ENOXAPARIN 40 MG/0.4 ML SYRINGE SUB-Q (07:48)
[2021-01-24 07:49] VITALS: PULSE 62
[2021-01-24] MEDS: gemfibroziL 600 MG TABLET PO ×2 (07:49→17:23)
[2021-01-24] MEDS: lisinopriL 5 MG TABLET PO (07:49)
[2021-01-24] MEDS: METOPROLOL TARTRATE 50 MG TAB PO ×2 (07:49→20:25)
[2021-01-24] MEDS: FUROSEMIDE INJ 40 MG/4 ML VIAL IV PUSH (07:49)
[2021-01-24] MEDS: SIMVASTATIN 20 MG TABLET PO (07:50)
[2021-01-24] MEDS: PHENYTOIN SODIUM 100 MG CAP PO (07:50)
[2021-01-24] MEDS: INSULIN HUMAN ISOPHAN/REGULAR 70/30 (*BKC) 100 UNITS/ML 50 UNITS SUB-Q (07:53)
--- NOTE | 2021-01-24 09:43 | PC.NURSE ---
Patient c/o of RLL pain and sob with activity. States is the same kind of pain he has when he was admitted. Vital signs stable. BP 145/[address] Beth notified new orders received.
--- NOTE | 2021-01-24 09:46 | ECG_ITS ---
Measurements Intervals [place] Rate: 56 P: -2 CO: 187 QRS: -5 QRSD: 89 T: 164 QT: 430 QTc: 418 Interpretive Statements SINUS BRADYCARDIA DELAYED PRECORDIAL R/S TRANSITION LEFT VENTRICULAR HYPERTROPHY WITH ST-T CHANGE INFERIOR INFARCT, AGE INDETERMINATE ST-T WAVE ABNORMALITY IN HIGH LATERAL LEADS- CONSIDER ISCHEMIA ABNORMAL ECG Electronically Signed On 01-24-2021 12:02:26 CDT by Dylan Baker D.O.
[2021-01-24 10:40] LABS: Troponin I < 0.012 ng/mL (0.000-0.034)
[2021-01-24] MEDS: LIDOCAINE 5% PATCH 1 PATCH TRANSDERM (10:44)
--- NOTE | 2021-01-24 10:56 | PC.NURSE ---
Dr Beth notified of troponin results and ekg
[2021-01-24] MEDS: ACETAMINOPHEN/CODEINE (*CRX) 300/30 MG TABLET 1 TAB PO ×2 (11:22→18:57)
[2021-01-24 11:57] LABS: Glucose Point of Care 155 mg/dl (65-105)
[2021-01-24 12:45] LABS: Hepatitis C Viral RNA PCR 953000 IU/mL
[2021-01-24 14:00] VITALS: BP 130/60; PULSE 58; RESP 16; TEMP 36.1; O2SAT 96
--- NOTE | 2021-01-24 15:35 | PM.IMPN ---
Progress Note: A&P Assessment and Plan (1) Chest pain: Qualifiers: Chest pain type: chest pain on breathing Qualified Code(s): R07.1 - Chest pain on breathing Code(s): R07.9 - Chest pain, unspecified Status: Acute Assessment and Plan: 01/22/21 12:30 Patient is a 55-year-old male with history diabetes, hypertension, PVD, PAD, CABG, several other chronic commodities presented emergency department with a 2 day history of chest pain constant worsening with movement and deep breath, there is also associated shortness of breath, patient has a left AKA upto the hip over 30 years ago, patient has quite sedentary life and his wheelchair-bound, to further evaluate patient had CTA of the chest did not show any pulmonary emboli, nor there any associated infiltrate or pulmonary edema, however patient BNP was elevated on last admission as well as patient has a mild systolic and diastolic congestive heart failure patient is gently diuresed, most likely patient has musculoskeletal pain, as well as neuropathic pain, and phantom pain due to left AKA, patient gabapentin was increased from 300 mg t.i.d. to 600 mg t.i.d., today patient states pain is much better compared to when he arrived, denies any chest pain shortness palpitation fever or or chills, patient would like to use his wheelchair to move around, will have PT OT evaluate the patient and further recommendation to follow. 01/24/2021 Patient presented with centralized chest pain that radiated to both sides of the thorax. Today he is complaining right-sided chest pain worse with movement improved with rest. He continues to have a muscle skeletal component to his pain. He is notably tender to palpation between the ribs 5-6,6-7,7-8. Patient is reassured. His raises concern that he may not be able to successfully transfer himself. farm or ranch animal caretaker has been notified to request assistance with possible SNF placement For assistance to return to prior level of functioning. (2) CHF exacerbation: Qualifiers: Heart failure type: diastolic Qualified Code(s): I50.33 - Acute on chronic diastolic (congestive) heart failure Code(s): I50.9 - Heart failure, unspecified Status: Acute Assessment and Plan: Patient with history of mild systolic dysfunction as well as diastolic dysfunction most likely patient acute on chronic combined systolic diastolic dysfunction patient is being diuresed, his symptoms are improved 01/24/2021 patient admits to not filling his Lasix prescription and being noncompliant with discharge recommendations. is bedside and agrees that she will insure he picks up his medication this time from the pharmacy. (3) Type 2 diabetes mellitus with hyperglycemia: Qualifiers: Diabetes mellitus nursing home insulin use: with nursing home use Qualified Code(s): E11.65 - Type 2 diabetes mellitus with hyperglycemia; Z79.4 - [facility] (current) use of insulin Code(s): E11.65 - Type 2 diabetes mellitus with hyperglycemia Status: Acute Assessment and Plan: Will continue regimen and monitor (4) Hyponatremia: Code(s): E87.1 - Hypo-osmolality and hyponatremia Status: Acute Assessment and Plan: Most likely secondary to hyperglycemia being corrected and sodium is improving Improved Increased water restriction to 1500 today 01/24/2021 sodium 136 today (5) Hypertension: Qualifiers: Hypertension type: essential hypertension Qualified Code(s): I10 - Essential (primary) hypertension Code(s): I10 - Essential (primary) hypertension Status: Acute Assessment and Plan: Will continue home regimen and monitor (6) CAD (coronary artery disease) of artery bypass graft: Qualifiers: [place] vs. transplanted heart: [place] heart Associated angina: without angina Qualified Code(s): I25.810 - Atherosclerosis of coronary artery bypass graft(s) without angina pect
[2021-01-24 17:19] LABS: Glucose Point of Care 249 mg/dl (65-105)
[2021-01-24] MEDS: INSULIN ASPART (*BKC) 100 UNITS/ML SUB-Q (17:24)
[2021-01-24] MEDS: NORTRIPTYLINE HCL 25 MG CAPSULE 50 MG PO (20:24)
[2021-01-24 20:25] VITALS: BP 157/61; PULSE 80; RESP 18; TEMP 36.6; O2SAT 96
[2021-01-24] MEDS: INSULIN HUMAN ISOPHAN/REGULAR 70/30 (*BKC) 100 UNITS/ML 40 UNITS SUB-Q (20:28)
[2021-01-24 20:42] LABS: Glucose Point of Care 339 mg/dl (65-105)
[2021-01-25] MEDS: ACETAMINOPHEN/CODEINE (*CRX) 300/30 MG TABLET 1 TAB PO ×3 (02:52→14:06)
[2021-01-25 05:35] LABS: Hematocrit 43.4 % (42.0-52.0); Hemoglobin 14.9 g/dL (14.0-18.0); Mean Corpuscular HGB Conc 34.3 g/dl (32-36); Mean Corpuscular Hemoglobin 32.5 pg (26-34); Mean Corpuscular Volume 94.8 fl (80-100); Mean Platelet Volume 11.6 fl (7.4-10.4); Platelet Count Result 233 k/mm3 (150-375); Red Blood Count 4.58 M/mm3 (4.6-6.20)
[2021-01-25 05:43] LABS: Anion Gap 4 mmol/L (8-16); Blood Urea Nitrogen 20 mg/dL (9-20); Calcium 8.8 mg/dL (8.4-10.2); Carbon Dioxide 28 mmol/L (22-30); Chloride 104 mmol/L (98-107); Estimated CRCL calculation 146 ml/min; Estimated Glomerular Filt Rate > 60; Glucose 153 mg/dL (75-110); Potassium 3.9 mmol/L (3.4-5.0); Sodium 136 mmol/L (137-145)
[2021-01-25 06:00] VITALS: BP 149/68; PULSE 63; RESP 16; TEMP 36.5; O2SAT 98
[2021-01-25] MEDS: GABAPENTIN 300 MG CAPSULE 600 MG PO ×2 (06:43→14:01)
[2021-01-25] MEDS: CLOPIDOGREL BISULFATE 75 MG TABLET PO (09:15)
[2021-01-25] MEDS: ASPIRIN 81 MG ENTERIC TABLET PO (09:15)
[2021-01-25] MEDS: ENOXAPARIN 40 MG/0.4 ML SYRINGE SUB-Q (09:15)
[2021-01-25] MEDS: FLUoxetine HCL 20 MG CAPSULE 80 MG PO (09:15)
[2021-01-25 09:16] VITALS: PULSE 60
[2021-01-25] MEDS: LIDOCAINE 5% PATCH 1 PATCH TRANSDERM (09:16)
[2021-01-25] MEDS: gemfibroziL 600 MG TABLET PO (09:16)
[2021-01-25] MEDS: PHENYTOIN SODIUM 100 MG CAP PO (09:16)
[2021-01-25] MEDS: FUROSEMIDE INJ 40 MG/4 ML VIAL IV PUSH (09:16)
[2021-01-25] MEDS: METOPROLOL TARTRATE 50 MG TAB PO (09:16)
[2021-01-25] MEDS: lisinopriL 5 MG TABLET PO (09:16)
[2021-01-25] MEDS: SIMVASTATIN 20 MG TABLET PO (09:16)
[2021-01-25] MEDS: INSULIN HUMAN ISOPHAN/REGULAR 70/30 (*BKC) 100 UNITS/ML 50 UNITS SUB-Q (09:17)
--- NOTE | 2021-01-25 10:41 | PCPTNOTE ---
Patient was observed this date transfer to and from toilet onto W/C and from W/C to bed, patient was independent with functional transfers as per PLOF, Physical therapy evaluation not warranted, no skilled therapy needs at this time.
[2021-01-25] MEDS: INSULIN ASPART (*BKC) 100 UNITS/ML SUB-Q (12:34)
[2021-01-25 13:58] VITALS: BP 143/68; PULSE 64; RESP 16; TEMP 36.5; O2SAT 98
[2021-01-25 14:45] LABS: HCV Genotype, LiPA 1a
--- NOTE | 2021-01-25 14:54 | PM.DS ---
DS: Admitting Diagnosis Admitting Diagnosis Admitting Diagnosis: (1) Chest pain: Qualifiers: Chest pain type: chest pain on breathing Qualified Code(s): R07.1 - Chest pain on breathing Code(s): R07.9 - Chest pain, unspecified Status: Acute (2) CHF exacerbation: Qualifiers: Heart failure type: diastolic Qualified Code(s): I50.33 - Acute on chronic diastolic (congestive) heart failure Code(s): I50.9 - Heart failure, unspecified Status: Acute (3) Type 2 diabetes mellitus with hyperglycemia: Qualifiers: Diabetes mellitus chcf insulin use: with chcf use Qualified Code(s): E11.65 - Type 2 diabetes mellitus with hyperglycemia; Z79.4 - FDC (current) use of insulin Code(s): E11.65 - Type 2 diabetes mellitus with hyperglycemia Status: Acute (4) Hyponatremia: Code(s): E87.1 - Hypo-osmolality and hyponatremia Status: Acute (5) Hypertension: Qualifiers: Hypertension type: essential hypertension Qualified Code(s): I10 - Essential (primary) hypertension Code(s): I10 - Essential (primary) hypertension Status: Acute (6) CAD (coronary artery disease) of artery bypass graft: Qualifiers: [place] vs. transplanted heart: [place] heart Associated angina: without angina Qualified Code(s): I25.810 - Atherosclerosis of coronary artery bypass graft(s) without angina pectoris Code(s): I25.810 - Atherosclerosis of coronary artery bypass graft(s) without angina pectoris Status: Chronic (7) Amputation stump pain: Code(s): T87.89 - Other complications of amputation stump; M79.609 - Pain in unspecified limb Status: Acute (8) Peripheral vascular disease: Code(s): I73.9 - Peripheral vascular disease, unspecified Status: Acute (9) Peripheral neuropathy: Qualifiers: Peripheral neuropathy type: polyneuropathy, unspecified Qualified Code(s): G62.9 - Polyneuropathy, unspecified Code(s): G62.9 - Polyneuropathy, unspecified Status: Acute (10) Seizures: Code(s): R56.9 - Unspecified convulsions Status: Acute (11) Depression: Qualifiers: Depression Type: unspecified Qualified Code(s): F32.9 - Major depressive disorder, single episode, unspecified Code(s): F32.9 - Major depressive disorder, single episode, unspecified Status: Acute (12) Chronic hepatitis C: Qualifiers: Hepatic coma status: without hepatic coma Qualified Code(s): B18.2 - Chronic viral hepatitis C Code(s): B18.2 - Chronic viral hepatitis C Status: Acute * DS: Discharge Diagnosis Discharge Diagnosis (1) Chronic hepatitis C: Qualifiers: Hepatic coma status: without hepatic coma Qualified Code(s): B18.2 - Chronic viral hepatitis C Code(s): B18.2 - Chronic viral hepatitis C Status: Acute (2) Type 2 diabetes mellitus with hyperglycemia: Qualifiers: Diabetes mellitus chcf insulin use: with supervisor intermediates use Qualified Code(s): E11.65 - Type 2 diabetes mellitus with hyperglycemia; Z79.4 - FDC (current) use of insulin Code(s): E11.65 - Type 2 diabetes mellitus with hyperglycemia Status: Acute (3) Elevated liver enzymes: Code(s): R74.8 - Abnormal levels of other serum enzymes Status: Acute (4) Hyponatremia: Code(s): E87.1 - Hypo-osmolality and hyponatremia Status: Acute (5) CAD (coronary artery disease): Code(s): I25.10 - Atherosclerotic heart disease of [place] coronary artery without angina pectoris Status: Acute (6) Atypical chest pain: Code(s): R07.89 - Other chest pain Status: Acute (7) Diabetes: Qualifiers: Diabetes mellitus type: type 2 Diabetes mellitus chcf insulin use: with chcf use Diabetes mellitus complication status: with circulatory complication Diabetes mellitus complication detail: with
[2021-01-25 16:44] LABS: Glucose Point of Care 192 mg/dl (65-105)
[2021-01-25 16:44] LABS: Glucose Point of Care 339 mg/dl (65-105)
== END 2021-01-25 17:10 | disposition home health service (06) | DRG 293 ==
LOC: ANHED 04:59 → ANHIMU 05:07 → ANH2MED 01-23 12:51 → ANHIMU 01-26 14:32
PROVIDERS: Family Medicine; Internal Medicine; Admitting Provider Internal Medicine; Emergency Provider Emergency Medicine; PCP Family Medicine; Visit Provider Hospitalist
DX: I11.0 Hypertensive heart disease with heart failure (principal); I50.43 Acute on chronic combined systolic (congestive) and diastolic (congestive) heart failure; R07.89 Other chest pain; M54.14 Radiculopathy, thoracic region; Z79.82 Long term (current) use of aspirin; F41.9 Anxiety disorder, unspecified; M19.90 Unspecified osteoarthritis, unspecified site; I25.10 Atherosclerotic heart disease of native coronary artery without angina pectoris; G54.6 Phantom limb syndrome with pain; Z95.1 Presence of aortocoronary bypass graft; Z99.3 Dependence on wheelchair; G89.29 Other chronic pain; M54.5 Low back pain; F32.9 Major depressive disorder, single episode, unspecified; E11.9 Type 2 diabetes mellitus without complications; E78.5 Hyperlipidemia, unspecified; G47.00 Insomnia, unspecified; Z89.612 Acquired absence of left leg above knee; I25.2 Old myocardial infarction; E11.42 Type 2 diabetes mellitus with diabetic polyneuropathy; E11.51 Type 2 diabetes mellitus with diabetic peripheral angiopathy without gangrene; R56.9 Unspecified convulsions; E55.9 Vitamin D deficiency, unspecified; Z95.2 Presence of prosthetic heart valve; Z87.891 Personal history of nicotine dependence; Z79.4 Long term (current) use of insulin; T87.89 Other complications of amputation stump; Y83.5 Amputation of limb(s) as the cause of abnormal reaction of the patient, or of later complication, without mention of misadventure at the time of the procedure; B18.2 Chronic viral hepatitis C; E11.65 Type 2 diabetes mellitus with hyperglycemia
CPT/HCPCS: 36415; 71046; 71275; 80048; 80053; 80076; 82533; 82570; 82948; 83036; 83735; 83880; 84443; 84484; 84540; 85025; 85027; 85380; 85610; 85730; 86140; 87522; 93005; 94762; 96374; 96375; 97161; 97165; 99285; A9270; J1650; J1815; J1940; Q9967

== ENCOUNTER 2021-04-07 23:16 | Emergency (ER) | payer MEDICARE, SELFPAY ==
[2021-04-07 23:41] VITALS: BP 176/74; PULSE 80; RESP 18; TEMP 36.2; O2SAT 98
[2021-04-08 02:30] VITALS: BP 142/96; PULSE 65; RESP 20; O2SAT 98
--- NOTE | 2021-04-08 02:43 | PC.NURSE ---
Pts family to nurses station requesting update on pts POC. Family member states why hasnt he been seen yet? Hes's been here for 3 hours. We come here all the time for the same issue, all he needs is a shot. This RN explained to family member that pt was in waiting room and was taken to room shortly before her arrival. Also informed family that EDP was with another pt at this time and would be in room to evaluate pt as soon as possible.
--- NOTE | 2021-04-08 02:45 | ED.GENADULT ---
HPI - General Adult General Chief complaint: Unspecified Stated complaint: Stump pain Time Seen by Provider: 04/08/21 02:47 History of Present Illness HPI narrative: Patient is a 55-year-old gentleman who presents emerged from with chief complaint of pain from amputation of left lower extremity. Patient reports he had his left lower extremity amputated to a hip disarticulation in the after an injury and developing gangrene in his lower extremity. The patient states that he has been on chronic pain medications and he was fired by his pain management doctor several months ago and was normally taking morphine 30s. Patient states that his been trying to get in with a pain management doctor and for the last 5 days has been having worsening pain. Patient states that he is currently not on any pain medications and has tried multiple different things to try to get the pain under control. Patient denies fever denies chills Related Data Home Medications Medication Instructions Recorded Confirmed aspirin 81 mg tablet,delayed 81 mg PO DAILY 09/20/19 03/20/21 release nitroglycerin 0.4 mg sublingual 0.4 mg SUBLINGUAL Q5M PRN 09/20/19 03/20/21 tablet clopidogrel 75 mg PO DAILY 10/23/20 03/20/21 cyclobenzaprine 10 mg PO TID PRN 10/23/20 03/20/21 metoprolol tartrate 50 mg PO BID 10/23/20 03/20/21 nortriptyline 50 mg PO HS 10/23/20 03/20/21 phenytoin sodium extended 100 mg 100 mg PO DAILY 11/14/20 03/20/21 capsule fluoxetine 80 mg PO DAILY 01/21/21 03/20/21 gemfibrozil 600 mg PO BID 01/21/21 03/20/21 insulin human U-100 NPH-regulr 50 unit SUBCUT DAILY ml 03/20/21 03/20/21 70-30 mix 100 unit/mL subcutaneous susp simvastatin 20 mg tablet 20 mg PO DAILY 03/20/21 03/20/21 Allergies Allergy/AdvReac Type Severity Reaction Status Date / Time No Known Allergies Allergy Verified 04/07/21 23:45 Review of Systems Review of Systems: A 10 system review of systems was completed on the patient and is negative except for what is stated in the HPI. Nursing and ancillary documentation was reviewed. [facility] Past Medical History Medical History Angina at rest Anxiety Arthritis Back pain CAD (coronary artery disease) CAD (coronary artery disease) of artery bypass graft CHF (congestive heart failure), NYHA class I Chronic hepatitis C Chronic low back pain Chronic pain Depression Diabetes H/O: HTN (hypertension) Heart disease History of colon polyps Hyperlipidemia Hypertension Insomnia Left above-knee amputee Myocardial infarction Osteoarthritis involving joints of upper arms, bilateral Peripheral neuropathy Peripheral vascular disease Seizure Seizures SOB (shortness of breath) Vitamin D deficiency Surgical History Surgical History Above knee amputation of left lower extremity Amputation of left lower extremity 11/1985 H/O aortic valve replacement H/O cardiac catheterization H/O vascular surgery History of appendectomy Hx of CABG Family History Family History Other No problems noted. Father No problems noted. Mother No problems noted. Social History Social History Social History: Patient is . He lives with his who is his POA. He is a full code. He previously smoked 1 pack per day times 30 years quitting 2018. No current alcohol use. Smokes cannabis about twice per week for pain control. Also uses CBD ointment. Smoking packs per day: 1 Smoking cigarettes per day: 20.0 Years smoked: 30 Smoking pack-years: 30.00 Smoking status: Former smoker Tobacco type: cigarettes Second hand tobacco smoke exposure: No Smoking end date: 08/25/17 Additional smoking assessment comments: quit about 20 years ago, smoked one ppd Al
--- NOTE | 2021-04-08 02:52 | PC.NURSE ---
Pts family member gave this RN phone number and requested to be called with updates. States she will be in vehicle in parking lot.
--- NOTE | 2021-04-08 03:01 | PC.NURSE ---
This RN entered pts room to administer medication. Witnessed pt standing next to counter, peeing in sink. Call light in reach, on stretcher. Urinal placed at bedside.
[2021-04-08] MEDS: HYDROmorphone HCL INJ (*CRX) 1 MG/ML SYR IM (03:02)
[2021-04-08 03:34] VITALS: BP 152/83; PULSE 64; RESP 16; O2SAT 97
== END 2021-04-08 03:40 | disposition home or self-care (01) ==
PROVIDERS: Emergency Provider Emergency Medicine; PCP Family Medicine
DX: G54.6 Phantom limb syndrome with pain (principal); Z89.612 Acquired absence of left leg above knee; I25.10 Atherosclerotic heart disease of native coronary artery without angina pectoris; I50.9 Heart failure, unspecified; E78.5 Hyperlipidemia, unspecified; I11.0 Hypertensive heart disease with heart failure; I25.2 Old myocardial infarction; M19.012 Primary osteoarthritis, left shoulder; M19.011 Primary osteoarthritis, right shoulder; E11.42 Type 2 diabetes mellitus with diabetic polyneuropathy; E11.51 Type 2 diabetes mellitus with diabetic peripheral angiopathy without gangrene; E55.9 Vitamin D deficiency, unspecified; F41.9 Anxiety disorder, unspecified; F32.9 Major depressive disorder, single episode, unspecified; Z95.1 Presence of aortocoronary bypass graft; Z95.2 Presence of prosthetic heart valve; Z87.891 Personal history of nicotine dependence; Z79.4 Long term (current) use of insulin; Z79.82 Long term (current) use of aspirin
CPT/HCPCS: 96372; 99283; J1170

== ENCOUNTER 2021-05-01 07:10 | Emergency (ER) | payer MEDICARE, SELFPAY ==
--- NOTE | ~2021-05-01 | XR_ITS ---
EXAMINATION: XR hip LT 2V w AP pelvis DATE: 05/01/2021 07:59 INDICATION: Chronic left hip pain. TECHNIQUE: An anteroposterior view of the pelvis and 2 views of left hip were obtained. COMPARISON: CT abdomen and pelvis 10/26/2020, pelvis radiographs 12/12/2020 FINDINGS: There is amputation of left lower limb. There is an old healed fracture of left acetabulum with chronic heterotopic ossification in the expected area of the femoral head. There are old healed fractures of right superior and inferior pubic rami. No acute fracture. There is mild right hip osteo arthritis. There is mild lumbar spondylosis. There are stents in right common and external iliac grecia isidro. IMPRESSION: 1. Left lower limb amputation. 2. Mild right hip osteoarthritis. Reviewed, dictated and finalized at location A.
[2021-05-01 07:15] VITALS: BP 157/100; PULSE 84; RESP 16; TEMP 37.1; O2SAT 100
--- NOTE | 2021-05-01 07:47 | ED.GENADULT ---
HPI - General Adult General Chief complaint: Extremity Injury, Lower Stated complaint: left upper leg pain, amputee Time Seen by Provider: 05/01/21 07:29 Source: patient Mode of arrival: ambulatory Limitations: no limitations History of Present Illness HPI narrative: Patient is 55 years old white male presents with steady discomfort and pain at the left buttock radiating to the tip of his stump. History of above-knee amputation years ago.. Patient is telling me that he been having intermittent pain at that area for the last 35 years, been to many physician including to pain management clinic without any improvement, scheduled to see another pain management clinic on the of this month. Patient denies any fever, chills, nausea, vomiting, abdominal pain, back pain, trauma. Patient denies any difference pain at this time compared to the pain in the past. Patient reports no aggravating factors but if he keeps rubbing or beating that area by his hand, make him feel better Related Data Home Medications Medication Instructions Recorded Confirmed aspirin 81 mg tablet,delayed 81 mg PO DAILY 09/20/19 03/20/21 release nitroglycerin 0.4 mg sublingual 0.4 mg SUBLINGUAL Q5M PRN 09/20/19 03/20/21 tablet clopidogrel 75 mg PO DAILY 10/23/20 03/20/21 cyclobenzaprine 10 mg PO TID PRN 10/23/20 03/20/21 metoprolol tartrate 50 mg PO BID 10/23/20 03/20/21 nortriptyline 50 mg PO HS 10/23/20 03/20/21 phenytoin sodium extended 100 mg 100 mg PO DAILY 11/14/20 03/20/21 capsule fluoxetine 80 mg PO DAILY 01/21/21 03/20/21 gemfibrozil 600 mg PO BID 01/21/21 03/20/21 insulin human U-100 NPH-regulr 50 unit SUBCUT DAILY ml 03/20/21 03/20/21 70-30 mix 100 unit/mL subcutaneous susp simvastatin 20 mg tablet 20 mg PO DAILY 03/20/21 03/20/21 Allergies Allergy/AdvReac Type Severity Reaction Status Date / Time No Known Allergies Allergy Verified 04/07/21 23:45 Review of Systems Review of Systems: CONSTITUTIONAL: Denies fever, chills, or sweats. EYES: Denies visual changes, redness, or discharge. ENT: Denies rhinorrhea, congestion, sore throat, or otalgia. CARDIOVASCULAR: Denies chest pain, palpitations, or edema. RESPIRATORY: Denies cough or dyspnea. GASTROINTESTINAL: Denies abdominal pain, nausea, vomiting, or diarrhea. GENITOURINARY: Denies dysuria or hematuria. SKIN: Denies rash or itching. MUSCULOSKELETAL: Denies back pain, joint pain, or myalgia. NEUROLOGIC: Denies headache, numbness, or weakness. PSYCHIATRIC: Denies anxiety or depression. [facility] Past Medical History Medical History Angina at rest Anxiety Arthritis Back pain CAD (coronary artery disease) CAD (coronary artery disease) of artery bypass graft CHF (congestive heart failure), NYHA class I Chronic hepatitis C Chronic low back pain Chronic pain Depression Diabetes H/O: HTN (hypertension) Heart disease History of colon polyps Hyperlipidemia Hypertension Insomnia Left above-knee amputee Myocardial infarction Osteoarthritis involving joints of upper arms, bilateral Peripheral neuropathy Peripheral vascular disease Seizure Seizures SOB (shortness of breath) Vitamin D deficiency Surgical History Surgical History Above knee amputation of left lower extremity Amputation of left lower extremity 11/1985 H/O aortic valve replacement H/O cardiac catheterization H/O vascular surgery History of appendectomy Hx of CABG Family History Family History Other No problems noted. Father No problems noted. Mother No problems noted. Social History Social History Social History: Patient is . He lives with his who is his POA. He is a full code. He previously smoked 1 pack per day times 30 years quitting 2018. No current alcohol use. Smokes
[2021-05-01] MEDS: HYDROmorphone HCL INJ (*CRX) 1 MG/ML SYR IM (08:55)
[2021-05-01] MEDS: ONDANSETRON HCL ODT 4 MG TABLET PO (08:56)
[2021-05-01] MEDS: diazePAM (*CRX) 5 MG TABLET PO (08:58)
[2021-05-01 09:07] VITALS: BP 169/83; PULSE 79; RESP 20; O2SAT 98
== END 2021-05-01 09:08 | disposition home or self-care (01) ==
PROVIDERS: Emergency Provider Emergency Medicine; PCP Family Medicine
DX: G89.29 Other chronic pain (principal); Z87.891 Personal history of nicotine dependence; F41.9 Anxiety disorder, unspecified; M19.90 Unspecified osteoarthritis, unspecified site; I25.10 Atherosclerotic heart disease of native coronary artery without angina pectoris; I11.0 Hypertensive heart disease with heart failure; I50.9 Heart failure, unspecified; F32.9 Major depressive disorder, single episode, unspecified; E11.9 Type 2 diabetes mellitus without complications; G40.909 Epilepsy, unspecified, not intractable, without status epilepticus; Z89.612 Acquired absence of left leg above knee
CPT/HCPCS: 73502; 96372; 99283; A9270; J1170

== ENCOUNTER 2021-06-17 12:13 | Emergency (ER) | payer MEDICARE, SELFPAY ==
--- NOTE | ~2021-06-17 | XR_ITS ---
EXAMINATION: XR shoulder RT min 2V INDICATION: Right shoulder pain TECHNIQUE: Four views of the right shoulder are submitted. COMPARISON: None FINDINGS: Normal alignment. No fracture. There is moderate osteoarthritis of the acromioclavicular an d glenohumeral joints. Soft tissues are unremarkable. Median sternotomy wires and mediastinal surgica l clips are seen, likely from prior coronary artery bypass grafting. IMPRESSION: 1. Moderate osteoarthritis of the shoulder. Reviewed, dictated and finalized at location A.
[2021-06-17 12:20] VITALS: BP 194/85; PULSE 72; RESP 18; TEMP 36.8; O2SAT 99
--- NOTE | 2021-06-17 12:57 | ED.UPPEXIN ---
HPI - Extremity Injury (Upper) General Chief Complaint: Extremity Injury, Upper Stated Complaint: right shoulder pain x 2 days Time Seen by Provider: 06/17/21 12:20 Source: patient Mode of arrival: wheelchair Limitations: no limitations History of Present Illness HPI narrative: Patient is a 55-year-old male complaining of right shoulder pain, 10 out of 10, worse with palpation and movement started 2 days ago. Patient says he uses his right upper extremity a lot when transferring, he does have [id number] amputation on the right lower extremity. Denies any other pain or injury. Denies any chest pain, shortness of breath, abdominal pain, nausea, vomiting, diaphoresis, fever or chills. Related Data Home Medications Medication Instructions Recorded Confirmed aspirin 81 mg tablet,delayed 81 mg PO DAILY 09/20/19 03/20/21 release nitroglycerin 0.4 mg sublingual 0.4 mg SUBLINGUAL Q5M PRN 09/20/19 03/20/21 tablet clopidogrel 75 mg PO DAILY 10/23/20 03/20/21 cyclobenzaprine 10 mg PO TID PRN 10/23/20 03/20/21 metoprolol tartrate 50 mg PO BID 10/23/20 03/20/21 nortriptyline 50 mg PO HS 10/23/20 03/20/21 gemfibrozil 600 mg PO BID 01/21/21 03/20/21 simvastatin 20 mg tablet 20 mg PO DAILY 03/20/21 03/20/21 Allergies Allergy/AdvReac Type Severity Reaction Status Date / Time No Known Allergies Allergy Verified 04/07/21 23:45 Review of Systems Review of Systems: All systems reviewed & are unremarkable except as noted in HPI and below Constitutional: Constitutional: Reports as per HPI [facility] Past Medical History Medical History Angina at rest Anxiety Arthritis Back pain CAD (coronary artery disease) CAD (coronary artery disease) of artery bypass graft CHF (congestive heart failure), NYHA class I Chronic hepatitis C Chronic low back pain Chronic pain Depression Diabetes H/O: HTN (hypertension) Heart disease History of colon polyps Hyperlipidemia Hypertension Insomnia Left above-knee amputee Myocardial infarction Osteoarthritis involving joints of upper arms, bilateral Peripheral neuropathy Peripheral vascular disease Seizure Seizures SOB (shortness of breath) Vitamin D deficiency Surgical History Surgical History Above knee amputation of left lower extremity Amputation of left lower extremity 11/1985 H/O aortic valve replacement H/O cardiac catheterization H/O vascular surgery History of appendectomy Hx of CABG Family History Family History Other No problems noted. Father No problems noted. Mother No problems noted. Social History Social History Social History: Patient is . He lives with his who is his POA. He is a full code. He previously smoked 1 pack per day times 30 years quitting 2018. No current alcohol use. Smokes cannabis about twice per week for pain control. Also uses CBD ointment. Smoking packs per day: 1 Smoking cigarettes per day: 20.0 Years smoked: 30 Smoking pack-years: 30.00 Smoking status: Former smoker Tobacco type: cigarettes Second hand tobacco smoke exposure: No Smoking end date: 08/25/17 Additional smoking assessment comments: quit about 20 years ago, smoked one ppd Alcohol intake: never Substance use: current Substance use type: marijuana Last use: 01/20/21 Gender identity (if verbalized by the patient): Male Spiritual care concerns: No Agree to blood products: Yes Exam Const: General: no acute distress and alert Nutritional Appearance: obese Orientation/consciousness: patient oriented x3 HENMT: Head: normal to inspection General nose exam: Normal nares present Face and sinus: normal facial exam Eyes: Conjunctivae: conjunctivae normal Neck: Neck: normal visual inspection
[2021-06-17] MEDS: KETOROLAC 30 MG/ML VIAL (*BKC) IM (13:07)
[2021-06-17] MEDS: diazePAM INJ (*CRX) 10 MG/2 ML SYRINGE 5 MG IM (13:07)
[2021-06-17] MEDS: HYDROcodone/acetaminophen (*CRX) 5-325 MG TABLET 2 TAB PO (13:07)
[2021-06-17 15:08] VITALS: BP 183/82; PULSE 64; RESP 21; O2SAT 98
== END 2021-06-17 15:10 | disposition home or self-care (01) ==
PROVIDERS: Emergency Provider Emergency Medicine; PCP Family Medicine
DX: S46.911A Strain of unspecified muscle, fascia and tendon at shoulder and upper arm level, right arm, initial encounter (principal); M19.90 Unspecified osteoarthritis, unspecified site; I25.810 Atherosclerosis of coronary artery bypass graft(s) without angina pectoris; I50.9 Heart failure, unspecified; I11.0 Hypertensive heart disease with heart failure; B18.2 Chronic viral hepatitis C; E78.5 Hyperlipidemia, unspecified; I25.2 Old myocardial infarction; E11.42 Type 2 diabetes mellitus with diabetic polyneuropathy; E55.9 Vitamin D deficiency, unspecified; Z95.1 Presence of aortocoronary bypass graft; Z95.2 Presence of prosthetic heart valve; Z87.891 Personal history of nicotine dependence; Z79.82 Long term (current) use of aspirin; Z89.612 Acquired absence of left leg above knee
CPT/HCPCS: 73030; 96372; 99284; A9270; J1885; J3360

== ENCOUNTER 2021-07-24 01:24 | Emergency (ER) | payer MEDICARE, SELFPAY ==
--- NOTE | ~2021-07-24 | CT_ITS ---
EXAMINATION: CT abdomen pelvis w con EXAM DATE: 07/24/2021 02:57 INDICATION: Abdominal pain . TECHNIQUE: Spiral CT of the abdomen and pelvis was performed following intravenous injection of 100 m L Omnipaque 350. Axial, coronal and sagittal images of the abdomen and pelvis were reviewed. The do se-length product (DLP) for this examination was 1595.37 mGy-cm. The exposure was tailored according to patient size (auto mA exposure control), and iterative reconstruction (ASIR) was used as addition al dose reduction technique. Comparison is made to prior examination from 10/26/2020. FINDINGS: The liver, spleen, adrenal glands and pancreas are unremarkable. Gallbladder is unremarkab le. No biliary obstruction. Portal and splenic veins are patent. Kidneys enhance symmetrically. T here is no hydronephrosis. The prostate is unremarkable. The bladder is unremarkable. There is no retroperitoneal or pelvic lymphadenopathy. There is extensive scattered arterial sclerotic disease . The appendix is not positively visualized. There is no pericecal inflammatory change to suggest appe ndicitis. The stomach and small bowel are unremarkable. There is expected amount of colonic stool. No free intraperitoneal gas. The heart is normal in size. There are no pericardial or pleural e ffusions. The lung bases are unremarkable. There are no osteoblastic or osteolytic lesions identifi ed. Resolution of previously seen bibasilar atelectasis. IMPRESSION: 1. No acute intra-abdominal findings. Reviewed, dictated and finalized at location A. [employer]
[2021-07-24] MEDS: HYDROmorphone HCL INJ (*CRX) 1 MG/ML SYR IV PUSH ×2 (02:22→03:57)
[2021-07-24] MEDS: PROCHLORPERAZINE EDISYLATE 10 MG/2 ML VIAL IV PUSH (02:22)
[2021-07-24] MEDS: SODIUM CHLORIDE 0.9% IV 1,000 ML 999 ML IV CONT (02:24)
[2021-07-24 02:32] LABS: Basophils Percent Auto 0.4 % (0.2-1.2); Eosinophils Percent Auto 0.1 % (0-4.4); Hematocrit 42.8 % (42.0-52.0); Hemoglobin 15.3 g/dL (14.0-18.0); Immature Granulocyte Absolute 0.04 K/mm3 (0.00-0.031); Immature Granulocyte Percent A 0.4 % (0-0.5); Lymphocytes Absolute Auto 2.32 K/mm3 (0.9-3.2); Lymphocytes Percent Auto 20.5 % (18.3-44.2); Mean Corpuscular HGB Conc 35.7 g/dl (32-36); Mean Corpuscular Hemoglobin 33.5 pg (26-34); Mean Corpuscular Volume 93.7 fl (80-100); Mean Platelet Volume 11.4 fl (7.4-10.4); Monocytes Absolute Auto 0.8 K/mm3 (0.1-0.6); Monocytes Percent Auto 7.1 % (2.6-8.5); Neutrophils Absolute Auto 8.1 K/mm3 (1.3-6.7); Neutrophils Percent Auto 71.5 % (45.5-73.1); Platelet Count Result 293 k/mm3 (150-375); Red Blood Count 4.57 M/mm3 (4.6-6.20); White Blood Count 11.3 K/mm3 (4.5-10.0)
[2021-07-24 02:41] LABS: Lactic Acid Reflex 2.2 mmol/L (0.7-2.1)
[2021-07-24 02:42] LABS: Alanine Aminotransferase 31 U/L (4-50); Albumin Level 3.9 g/dL (3.5-5.1); Alkaline Phosphatase 194 U/L (38-126); Anion Gap 10 mmol/L (8-16); Aspartate Amino Transferase 30 U/L (17-59); Bilirubin,Total 0.4 mg/dL (0.2-1.3); Blood Urea Nitrogen 18 mg/dL (9-20); Calcium 9.2 mg/dL (8.4-10.2); Carbon Dioxide 26 mmol/L (22-30); Chloride 92 mmol/L (98-107); Estimated Glomerular Filt Rate > 60; Glucose 414 mg/dL (65-110); Lipase 154 U/L (23-300); Potassium 4.1 mmol/L (3.4-5.0); Sodium 128 mmol/L (137-145)
--- NOTE | 2021-07-24 03:17 | ED.GENADULT ---
HPI - General Adult General Chief complaint: Abdominal Pain Stated complaint: vomiting Time Seen by Provider: 07/24/21 02:04 History of Present Illness HPI narrative: Patient is a 56-year-old gentleman who presents the emergency department with chief complaint of nausea vomiting and diarrhea. Patient reports he has history of a disarticulation and reports that he started having nausea vomiting diarrhea is had multiple bouts of this and started having cramping throughout his abdomen the patient reports after he has been vomiting and diarrhea reports that his area of his stomach started hurting more. Patient states that has had no fevers reports that there have been family overseas been sick. Related Data Home Medications Medication Instructions Recorded Confirmed aspirin 81 mg tablet,delayed 81 mg PO DAILY 09/20/19 03/20/21 release nitroglycerin 0.4 mg sublingual 0.4 mg SUBLINGUAL Q5M PRN 09/20/19 03/20/21 tablet clopidogrel 75 mg PO DAILY 10/23/20 03/20/21 cyclobenzaprine 10 mg PO TID PRN 10/23/20 03/20/21 metoprolol tartrate 50 mg PO BID 10/23/20 03/20/21 nortriptyline 50 mg PO HS 10/23/20 03/20/21 gemfibrozil 600 mg PO BID 01/21/21 03/20/21 simvastatin 20 mg tablet 20 mg PO DAILY 03/20/21 03/20/21 Allergies Allergy/AdvReac Type Severity Reaction Status Date / Time No Known Allergies Allergy Verified 04/07/21 23:45 Review of Systems Review of Systems: A 10 system review of systems was completed on the patient and is negative except for what is stated in the HPI. Nursing and ancillary documentation was reviewed. [facility] Past Medical History Medical History Angina at rest Anxiety Arthritis Back pain CAD (coronary artery disease) CAD (coronary artery disease) of artery bypass graft CHF (congestive heart failure), NYHA class I Chronic hepatitis C Chronic low back pain Chronic pain Depression Diabetes H/O: HTN (hypertension) Heart disease History of colon polyps Hyperlipidemia Hypertension Insomnia Left above-knee amputee Myocardial infarction Osteoarthritis involving joints of upper arms, bilateral Peripheral neuropathy Peripheral vascular disease Seizure Seizures SOB (shortness of breath) Vitamin D deficiency Surgical History Surgical History Above knee amputation of left lower extremity Amputation of left lower extremity 11/1985 H/O aortic valve replacement H/O cardiac catheterization H/O vascular surgery History of appendectomy Hx of CABG Family History Family History Other No problems noted. Father No problems noted. Mother No problems noted. Social History Social History Social History: Patient is . He lives with his who is his POA. He is a full code. He previously smoked 1 pack per day times 30 years quitting 2018. No current alcohol use. Smokes cannabis about twice per week for pain control. Also uses CBD ointment. Smoking packs per day: 1 Smoking cigarettes per day: 20.0 Years smoked: 30 Smoking pack-years: 30.00 Smoking status: Former smoker Tobacco type: cigarettes Second hand tobacco smoke exposure: No Smoking end date: 08/25/17 Additional smoking assessment comments: quit about 20 years ago, smoked one ppd Alcohol intake: never Substance use: current Substance use type: marijuana Last use: 01/20/21 Gender identity (if verbalized by the patient): Male Spiritual care concerns: No Agree to blood products: Yes Exam Narrative: GENERAL: Well-appearing, well-nourished, and in no acute distress. HEAD: Normocephalic, atraumatic. EYES: PERRLA and EOMI. ENT: Nares clear, no rhinorrhea or epistaxis. Mucous membranes moist. NECK: Supple. CHEST: Clear to auscultatio
[2021-07-24 04:39] VITALS: BP 148/83; PULSE 81; RESP 18; O2SAT 100
[2021-07-24 05:30] LABS: Reflex Lactic Acid Yes or No Add Lactic
--- NOTE | 2021-08-06 15:46 | PC.NURSE ---
LATE ENTRY This note is being entered to document information to the patient's record. The following information was omitted on [07/24/21], by [Tera Rodarte RN]. NS fluid stop time is 0315am.
--- NOTE | 2021-08-17 05:40 | PC.NURSE ---
IV infusion discontinued at 0307
== END 2021-07-24 04:40 | disposition home or self-care (01) ==
PROVIDERS: Emergency Provider Emergency Medicine; PCP Family Medicine
DX: K52.9 Noninfective gastroenteritis and colitis, unspecified (principal); I25.10 Atherosclerotic heart disease of native coronary artery without angina pectoris; I50.9 Heart failure, unspecified; I11.0 Hypertensive heart disease with heart failure; B19.20 Unspecified viral hepatitis C without hepatic coma; E11.42 Type 2 diabetes mellitus with diabetic polyneuropathy; E11.51 Type 2 diabetes mellitus with diabetic peripheral angiopathy without gangrene; E78.5 Hyperlipidemia, unspecified; I25.2 Old myocardial infarction; M19.90 Unspecified osteoarthritis, unspecified site; E55.9 Vitamin D deficiency, unspecified; F41.9 Anxiety disorder, unspecified; F32.9 Major depressive disorder, single episode, unspecified; Z89.612 Acquired absence of left leg above knee; Z86.010 Personal history of colon polyps; Z95.2 Presence of prosthetic heart valve; Z95.1 Presence of aortocoronary bypass graft; Z87.891 Personal history of nicotine dependence; Z79.82 Long term (current) use of aspirin; Z79.4 Long term (current) use of insulin
CPT/HCPCS: 36415; 74177; 80053; 83605; 83690; 85025; 96361; 96374; 96375; 96376; 99284; J0780; J1170; J7030; Q9967

== ENCOUNTER 2021-10-25 23:10 | Observation (INO) | payer MEDICARE, SELFPAY ==
--- NOTE | ~2021-10-25 | CT_ITS ---
EXAMINATION: CT abdomen pelvis w con DATE: 10/26/2021 00:27 INDICATION: Epigastric abdominal pain, nausea and vomiting for one day TECHNIQUE: Computed tomography (CT) of the abdomen and pelvis was performed with 100 CC Omnipaque 350 intravenous contrast. Automated exposure control and iterative reconstruction technique were employe d. Exam dose: 1266.85 mGy-cm total exam DLP. COMPARISON: 07/24/2021 CT abdomen pelvis FINDINGS: The lung bases are clear of infiltrate or consolidation. Normal heart size. No pericardial or pleural effusion. Status post sternotomy. The liver, gallbladder, bile ducts, pancreas, pancreatic duct, spleen, and adrenal glands and kidneys are unremarkable. There is prominent atherosclerotic calcification of the abdominal aorta, iliac and right femoral grecia isidro but no abdominal aortic aneurysm. 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 No intraperitoneal or re troperitoneal or pelvic mass lesion or adenopathy or ascites. There is nonspecific moderate diffuse t hickening of the urinary bladder wall. The prostate gland is unremarkable. No bowel obstruction or intraperitoneal free air. Old fracture deformities of the right superior and inferior pubic rami, left inferior pubic ramus. St atus post left lower extremity amputation at the hip. IMPRESSION: Status post sternotomy Nonspecific diffuse thickening of the urinary bladder wall Left lower extremity amputation at the hip Old pelvic fractures Reviewed, dictated and finalized at Location [facility]. Reviewed, dictated and finalized at location A. [employer] T[employer]ER
[2021-10-25 23:19] VITALS: BP 238/106; PULSE 109; RESP 19; TEMP 35.8; O2SAT 100
--- NOTE | 2021-10-25 23:30 | ECG_ITS ---
Measurements Intervals [place] Rate: 103 P: 48 GA: 152 QRS: 3 QRSD: 86 T: 80 QT: 370 QTc: 485 Interpretive Statements SINUS TACHYCARDIA POSSIBLE LEFT ATRIAL ENLARGEMENT [-0.1mV P WAVE IN V1/V2] NONSPECIFIC T-WAVE ABNORMALITY CANNOT RULE OUT INFERIOR INFARCTION, AGE UNDETERMINED ABNORMAL ECG Electronically Signed On 10-26-2021 10:33:04 [facility]ERMAN by Omer Earl M.D.
[2021-10-25] MEDS: ONDANSETRON INJ 4 MG/2 ML VIAL IV PUSH (23:35)
[2021-10-25] MEDS: LABETALOL HCL INJ 100 MG/20 ML VIAL 20 MG IV PUSH (23:36)
[2021-10-25 23:38] LABS: Basophils Absolute Auto 0.1 K/mm3 (0.0-0.1); Basophils Percent Auto 0.3 % (0.2-1.2); Hematocrit 52.6 % (42.0-52.0); Hemoglobin 18.2 g/dL (14.0-18.0); Immature Granulocyte Absolute 0.05 K/mm3 (0.00-0.031); Immature Granulocyte Percent A 0.3 % (0-0.5); Lymphocytes Absolute Auto 1.34 K/mm3 (0.9-3.2); Lymphocytes Percent Auto 9.4 % (18.3-44.2); Mean Corpuscular HGB Conc 34.6 g/dl (32-36); Mean Corpuscular Hemoglobin 32.4 pg (26-34); Mean Corpuscular Volume 93.6 fl (80-100); Mean Platelet Volume 12.2 fl (7.4-10.4); Monocytes Absolute Auto 0.6 K/mm3 (0.1-0.6); Monocytes Percent Auto 4.3 % (2.6-8.5); Neutrophils Absolute Auto 12.3 K/mm3 (1.3-6.7); Neutrophils Percent Auto 85.7 % (45.5-73.1); Platelet Count Result 280 k/mm3 (150-375); Red Blood Count 5.62 M/mm3 (4.6-6.20); Red Cell Distribution Width 12.3 % (11.5-14.5); White Blood Count 14.3 K/mm3 (4.5-10.0)
[2021-10-25 23:39] VITALS: PULSE 100; RESP 14; O2SAT 100
[2021-10-25 23:45] VITALS: PULSE 88; RESP 18; O2SAT 99
[2021-10-25 23:47] LABS: Partial Thromboplastin Time 27.1 SECONDS (22.3-36.8)
[2021-10-25 23:53] LABS: Prothrombin Time 12.5 Seconds (11.1-14.7)
[2021-10-25 23:56] LABS: Albumin Level 4.2 g/dL (3.5-5.1); Alkaline Phosphatase 214 U/L (38-126); Anion Gap 18 mmol/L (8-16); Aspartate Amino Transferase 34 U/L (17-59); Bilirubin,Total 0.6 mg/dL (0.2-1.3); Blood Urea Nitrogen 14 mg/dL (9-20); Calcium 9.3 mg/dL (8.4-10.2); Carbon Dioxide 18 mmol/L (22-30); Chloride 98 mmol/L (98-107); Estimated CRCL calculation 83 ml/min; Estimated Glomerular Filt Rate > 60; Glucose 539 mg/dL (65-110); Lipase 58 U/L (23-300); Potassium 4.3 mmol/L (3.4-5.0); Sodium 134 mmol/L (137-145)
[2021-10-25 23:57] LABS: Alanine Aminotransferase 29 U/L (4-50)
[2021-10-26] VITALS (37 sets, daily range): BP systolic 133–231; BP diastolic 59–114; PULSE 55–112; RESP 13–26; TEMP 36.1–36.8; O2SAT 92–100; BMI 30.7
[2021-10-26 00:01] LABS: Troponin I 0.029 ng/mL (0.000-0.034)
[2021-10-26] MEDS: MORPHINE SULFATE (*CRX) 4 MG/ML INJ IV PUSH ×2 (00:04→03:10)
[2021-10-26] MEDS: INSULIN HUMAN REGULAR (*BKC) 100 UNITS/ML 12 UNITS IV PUSH (00:09)
[2021-10-26 00:43] LABS: Alveolar/Arterial O2 Gradient 21.7 mmHg; Base Excess ABG -6.2 mEq/l (+/-2.0); Carboxyhemoglobin 0.6 % THb (0-2.0); Fractional Inspired Oxygen 21 %; HCO3 ABG 16.2 mEq/l (22.0-26.0); Methemoglobin ABG 0.4 %THb (0-1.5); Oxygen Content ABG 23.1 %vol (16.0-22.0); Oxygen Saturation ABG 97.6 % (95.0-100.0); Oxyhemoglobin 96.3 % THb (90.0-100.0); PCO2 ABG 25.9 mmHg (35.0-45.0); PO2 FiO2 Ratio Arterial Blood 4.62 %; Reduced Hemoglobin 2.7 %THb (0-5.0); pH ABG 7.415 (7.350-7.450)
[2021-10-26 00:44] LABS: Device ROOM AIR; Modified Allen's Test Pass; Site Drawn LEFT RADIAL
[2021-10-26 01:15] LABS: Add Urine Microscopic? YES; Appearance Urine Cloudy (Clear); Bilirubin Urine Negative (Negative); Blood Urine 1+ (Negative); Color Urine Yellow (Yellow); Glucose Urine UA 3+ mg/dL (Negative); Ketones Urine 1+ mg/dL (Negative); Leukocyte Esterase Ur Negative LEU/UL (Negative); Mucus Urine Rare /lpf; Nitrate Urine Negative (Negative); Protein Urine 3+ mg/dL (Negative); Squamous Epithelial Cell Urine Rare /hpf (Few); Urobilinogen Urine Negative mg/dL (<2.0); WBC Urine 0-3 /hpf
[2021-10-26 01:35] LABS: Glucose Point of Care 480 mg/dl (65-105)
[2021-10-26 01:41] LABS: Specific Grav Ur 1.037 (1.001-1.035)
--- NOTE | 2021-10-26 02:21 | ED.ABDPAIN ---
HPI - Abdominal Pain General Chief Complaint: Abdominal Pain Stated Complaint: abd pain Time Seen by Provider: 10/25/21 23:13 History of Present Illness HPI narrative: Patient is a 56-year-old male who presents ER with epigastric pain. Intermittent over the last 3 days. More severe this evening. Associate with vomiting times he tries to eat or drink. No fevers or chills or sweats. Denies chest pain or chest pressure. Has been unable to come medications. Pain is sharp and cramping. No radiation. No alleviating factors. Related Data Home Medications Medication Instructions Recorded Confirmed aspirin 81 mg tablet,delayed 81 mg PO DAILY 09/20/19 10/26/21 release nitroglycerin 0.4 mg sublingual 0.4 mg SUBLINGUAL Q5M PRN 09/20/19 10/26/21 tablet clopidogrel 75 mg PO DAILY 10/23/20 10/26/21 cyclobenzaprine 10 mg PO TID PRN 10/23/20 10/26/21 metoprolol tartrate 50 mg PO BID 10/23/20 10/26/21 nortriptyline 50 mg PO HS 10/23/20 10/26/21 gemfibrozil 600 mg PO BID 01/21/21 10/26/21 simvastatin 20 mg tablet 20 mg PO DAILY 03/20/21 10/26/21 Allergies Allergy/AdvReac Type Severity Reaction Status Date / Time No Known Allergies Allergy Verified 04/07/21 23:45 Review of Systems Review of Systems: All systems reviewed & are unremarkable except as noted in HPI and below Constitutional: Constitutional: Denies chills, Denies fever(s) and Denies weakness ENT: Denies nasal congestion and Denies sore throat Cardiovascular: Cardiovascular: Denies chest pain, Denies rapid heart rate and Denies radiating jaw, neck or arm pain Respiratory: Respiratory: Denies cough and Denies dyspnea Gastrointestinal: Gastrointestinal: Reports abdominal pain, Reports nausea and Reports vomiting PMFSH Past Medical History Medical History Angina at rest Anxiety Arthritis Back pain CAD (coronary artery disease) CAD (coronary artery disease) of artery bypass graft CHF (congestive heart failure), NYHA class I Chronic hepatitis C Chronic low back pain Chronic pain Depression Diabetes H/O: HTN (hypertension) Heart disease History of colon polyps Hyperlipidemia Hypertension Insomnia Left above-knee amputee Myocardial infarction Osteoarthritis involving joints of upper arms, bilateral Peripheral neuropathy Peripheral vascular disease Seizure Seizures SOB (shortness of breath) Vitamin D deficiency Surgical History Surgical History Above knee amputation of left lower extremity Amputation of left lower extremity 11/1985 H/O aortic valve replacement H/O cardiac catheterization H/O vascular surgery History of appendectomy Hx of CABG Family History Family History Other No problems noted. Father No problems noted. Mother No problems noted. Social History Social History Social History: Patient is . He lives with his who is his POA. He is a full code. He previously smoked 1 pack per day times 30 years quitting 2018. No current alcohol use. Smokes cannabis about twice per week for pain control. Also uses CBD ointment. Smoking packs per day: 1 Smoking cigarettes per day: 20.0 Years smoked: 30 Smoking pack-years: 30.00 Smoking status: Former smoker Tobacco type: cigarettes Second hand tobacco smoke exposure: No Smoking end date: 08/25/17 Additional smoking assessment comments: pt states he stopped smoking 15 years ago Alcohol intake: never Substance use: current Substance use type: marijuana Last use: 01/20/21 Gender identity (if verbalized by the patient): Male Spiritual care concerns: No Agree to blood products: Yes Exam Narrative: GENERAL: Uncomfortable-appearing, well-nourished, and in no acute distress. HEAD: Normocep
[2021-10-26 03:04] LABS: Lactic Acid Reflex 4.3 mmol/L (0.7-2.1)
--- NOTE | 2021-10-26 03:52 | ADMGEN ---
This patient, Calvin Flores, was admitted to IMU Room 214-01. at apporx 0345 on 10/26 pt arrived to floor. Patient/family oriented to hospital policies and general routines including ID bracelet, bed and alarms, visiting hours, pain management, procedures, bathroom and other care routines, personal items, smoking policy, room service/diet, and visiting hours. Information on how to activate the Rapid Response Team has been discussed. Patient/Family are encouraged to report perceived risks to care and to ask questions if they do not understand what they are told or what they should do.
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
[2021-10-26 04:14] LABS: Glucose Point of Care 479 mg/dl (65-105)
[2021-10-26] MEDS: SODIUM CHLORIDE 0.9% IV 1,000 ML 999 ML IV CONT (04:24)
[2021-10-26] MEDS: INSULIN HUMAN REGULAR (*BKC) 100 UNITS/ML 18 UNITS SUB-Q (04:25)
[2021-10-26] MEDS: SODIUM CHLORIDE 0.9% IV 1,000 ML 125 ML IV CONT ×2 (05:28→17:46)
[2021-10-26] MEDS: ONDANSETRON INJ 4 MG/2 ML VIAL IV PUSH (05:30)
[2021-10-26 05:48] LABS: Reflex Lactic Acid Yes or No Add Lactic
[2021-10-26 06:08] LABS: Glucose Point of Care 402 mg/dl (65-105)
[2021-10-26 06:22] LABS: Lactic Acid 2.1 mmol/L (0.7-2.1)
[2021-10-26] MEDS: HYDROcodone/acetaminophen (*CRX) 5-325 MG TABLET 1 TAB PO (08:24)
[2021-10-26] MEDS: SIMVASTATIN 20 MG TABLET PO (08:25)
[2021-10-26] MEDS: PHENYTOIN SODIUM 100 MG EXTENDED RELEASE CAP PO (08:25)
[2021-10-26] MEDS: GABAPENTIN 300 MG CAPSULE PO ×3 (08:26→17:41)
[2021-10-26] MEDS: gemfibroziL 600 MG TABLET PO ×2 (08:26→17:42)
[2021-10-26] MEDS: lisinopriL 20 MG TABLET BY MOUTH (08:26)
[2021-10-26] MEDS: METOPROLOL TARTRATE 50 MG TAB PO ×2 (08:26→21:06)
[2021-10-26] MEDS: ASPIRIN 81 MG ENTERIC TABLET PO (08:27)
[2021-10-26] MEDS: FLUoxetine HCL 20 MG CAPSULE 80 MG PO (08:27)
[2021-10-26] MEDS: CLOPIDOGREL BISULFATE 75 MG TABLET PO (08:27)
[2021-10-26] MEDS: FAMOTIDINE 20 MG/2 ML VIAL IV PUSH ×2 (08:27→21:05)
[2021-10-26 08:47] LABS: Glucose Point of Care 366 mg/dl (65-105)
[2021-10-26 09:24] LABS: Hemoglobin 16.2 g/dL (14.0-18.0); Mean Corpuscular HGB Conc 35.2 g/dl (32-36); Mean Corpuscular Hemoglobin 32.3 pg (26-34); Mean Corpuscular Volume 91.6 fl (80-100); Mean Platelet Volume 11.6 fl (7.4-10.4); Platelet Count Result 228 k/mm3 (150-375); Red Blood Count 5.02 M/mm3 (4.6-6.20); Red Cell Distribution Width 12.3 % (11.5-14.5); White Blood Count 12.4 K/mm3 (4.5-10.0)
[2021-10-26] MEDS: INSULIN HUMAN ISOPHAN/REGULAR 70/30 (*BKC) 100 UNITS/ML 60 UNITS SUB-Q (09:29)
[2021-10-26 09:34] LABS: Anion Gap 7 mmol/L (8-16); Blood Urea Nitrogen 16 mg/dL (9-20); Calcium 8.1 mg/dL (8.4-10.2); Carbon Dioxide 27 mmol/L (22-30); Chloride 98 mmol/L (98-107); Estimated CRCL calculation 78 ml/min; Estimated Glomerular Filt Rate > 60; Glucose 365 mg/dL (65-110); Sodium 132 mmol/L (137-145)
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
[2021-10-26 12:33] LABS: Glucose Point of Care 281 mg/dl (65-105)
[2021-10-26] MEDS: INSULIN ASPART (*BKC) 100 UNITS/ML SUB-Q (13:00)
[2021-10-26 13:14] LABS: Hemoglobin A1C 11.1 % (<5.7)
[2021-10-26 13:16] LABS: Beta-Hydroxybutyrate/Acetoacetate 0.46 mmol/L (0.02-0.27)
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
[2021-10-26 16:58] LABS: Glucose Point of Care 119 mg/dl (65-105)
[2021-10-26] MEDS: INSULIN HUMAN ISOPHAN/REGULAR 70/30 (*BKC) 100 UNITS/ML 50 UNITS SUB-Q (17:41)
[2021-10-26 19:59] LABS: Glucose Point of Care 161 mg/dl (65-105)
[2021-10-26] MEDS: NORTRIPTYLINE HCL 25 MG CAPSULE 50 MG PO (21:05)
[2021-10-27] VITALS (9 sets, daily range): BP systolic 123–161; BP diastolic 54–66; PULSE 52–69; RESP 16–18; TEMP 36.2–36.6; O2SAT 91–100
[2021-10-27] MEDS: SODIUM CHLORIDE 0.9% IV 1,000 ML 125 ML IV CONT (04:38)
[2021-10-27 08:20] LABS: Glucose Point of Care 76 mg/dl (65-105)
[2021-10-27] MEDS: METOPROLOL TARTRATE 50 MG TAB PO (08:23)
[2021-10-27] MEDS: SIMVASTATIN 20 MG TABLET PO (08:23)
[2021-10-27] MEDS: PHENYTOIN SODIUM 100 MG EXTENDED RELEASE CAP PO (08:23)
[2021-10-27] MEDS: gemfibroziL 600 MG TABLET PO (08:24)
[2021-10-27] MEDS: GABAPENTIN 300 MG CAPSULE PO ×2 (08:24→12:48)
[2021-10-27] MEDS: FLUoxetine HCL 20 MG CAPSULE 80 MG PO (08:24)
[2021-10-27] MEDS: lisinopriL 20 MG TABLET BY MOUTH (08:24)
[2021-10-27] MEDS: FAMOTIDINE 20 MG/2 ML VIAL IV PUSH (08:25)
[2021-10-27] MEDS: ASPIRIN 81 MG ENTERIC TABLET PO (08:25)
[2021-10-27] MEDS: CLOPIDOGREL BISULFATE 75 MG TABLET PO (08:25)
[2021-10-27] MEDS: INSULIN HUMAN ISOPHAN/REGULAR 70/30 (*BKC) 100 UNITS/ML 60 UNITS SUB-Q (08:28)
[2021-10-27 12:18] LABS: Glucose Point of Care 56 mg/dl (65-105)
--- NOTE | 2021-10-27 12:34 | PC.NURSE ---
Pt blood sugar reported at 54. Pt alert and c/o diaphoresis. Pt given apple juice, non-fat milk, and natalee crackers, no c/o N/V. Will continue to monitor.
[2021-10-27 12:41] LABS: Glucose Point of Care 65 mg/dl (65-105)
[2021-10-27] MEDS: DEXTROSE 50% 25 GM/50 ML SYRINGE IV PUSH (12:46)
--- NOTE | 2021-10-27 12:46 | PC.NURSE ---
Rpt blood sugar 65, pt alert with c/o feeling tired. 12.5 gm 50% Dextrose given per protocol. Will continue to monitor.
[2021-10-27 12:56] LABS: Glucose Point of Care 116 mg/dl (65-105)
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
[2021-10-27 16:05] LABS: Glucose Point of Care 184 mg/dl (65-105)
== END 2021-10-27 16:13 | disposition home or self-care (01) ==
LOC: ANHED 23:24 → ANHIMU 10-26 03:13
PROVIDERS: Physician Assistant; Admitting Provider Internal Medicine; Emergency Provider Emergency Medicine; PCP Family Medicine; Visit Provider Family Medicine
DX: R10.9 Unspecified abdominal pain (principal); R11.2 Nausea with vomiting, unspecified; R19.7 Diarrhea, unspecified; B18.2 Chronic viral hepatitis C; E11.65 Type 2 diabetes mellitus with hyperglycemia; M54.50 Low back pain, unspecified; G89.29 Other chronic pain; T87.89 Other complications of amputation stump; M79.605 Pain in left leg; I25.10 Atherosclerotic heart disease of native coronary artery without angina pectoris; I11.0 Hypertensive heart disease with heart failure; I50.9 Heart failure, unspecified; E78.5 Hyperlipidemia, unspecified; I25.2 Old myocardial infarction; E11.51 Type 2 diabetes mellitus with diabetic peripheral angiopathy without gangrene; E11.42 Type 2 diabetes mellitus with diabetic polyneuropathy; G40.909 Epilepsy, unspecified, not intractable, without status epilepticus; E55.9 Vitamin D deficiency, unspecified; F41.8 Other specified anxiety disorders; Z95.4 Presence of other heart-valve replacement; Z95.1 Presence of aortocoronary bypass graft; Z79.02 Long term (current) use of antithrombotics/antiplatelets; Z79.82 Long term (current) use of aspirin; Z87.891 Personal history of nicotine dependence; Z89.612 Acquired absence of left leg above knee; F12.90 Cannabis use, unspecified, uncomplicated
CPT/HCPCS: 36415; 36600; 74177; 80048; 80053; 81001; 82010; 82375; 82805; 82948; 83036; 83050; 83605; 83690; 84484; 85025; 85027; 85610; 85730; 93005; 96361; 96374; 96375; 96376; 99285; A9270; G0378; J1815; J2270; J2405; J7030; Q9967

== ENCOUNTER 2021-12-23 04:18 | Emergency (ER) | payer MEDICARE, SELFPAY ==
[2021-12-23 04:27] VITALS: BP 151/69; PULSE 69; RESP 16; TEMP 36.2; O2SAT 99
[2021-12-23] MEDS: KETOROLAC 15 MG/ML VIAL (*BKC) IV PUSH (05:17)
[2021-12-23] MEDS: MORPHINE SULFATE (*CRX) 4 MG/ML INJ IV PUSH (06:37)
--- NOTE | 2021-12-23 06:46 | ED.GENADULT ---
HPI - General Adult General Chief complaint: Unspecified Stated complaint: stump pain Time Seen by Provider: 12/23/21 04:42 Source: patient History of Present Illness HPI narrative: Patient presents with leg pain. Patient has had an amputation of his chronic pain to that area. He is experiencing exacerbation of his chronic pain. Reports he does take morphine at home but discontinued it 2 days ago as it was not helping. 75 controlling his pain at home so he came to the ER for evaluation. Denies any new trauma denies any fevers or chills denies any injury or rash to the area denies any skin breakdown. Related Data Home Medications Medication Instructions Recorded Confirmed aspirin 81 mg tablet,delayed 81 mg PO DAILY 09/20/19 10/26/21 release nitroglycerin 0.4 mg sublingual 0.4 mg SUBLINGUAL Q5M PRN 09/20/19 10/26/21 tablet clopidogrel 75 mg PO DAILY 10/23/20 10/26/21 cyclobenzaprine 10 mg PO TID PRN 10/23/20 10/26/21 metoprolol tartrate 50 mg PO BID 10/23/20 10/26/21 nortriptyline 50 mg PO HS 10/23/20 10/26/21 gemfibrozil 600 mg PO BID 01/21/21 10/26/21 simvastatin 20 mg tablet 20 mg PO DAILY 03/20/21 10/26/21 Allergies Allergy/AdvReac Type Severity Reaction Status Date / Time No Known Allergies Allergy Verified 12/23/21 04:34 Review of Systems Review of Systems: CONSTITUTIONAL: Denies fever, chills, or sweats. EYES: Denies visual changes, redness, or discharge. ENT: Denies rhinorrhea, congestion, sore throat, or otalgia. CARDIOVASCULAR: Denies chest pain, palpitations, or edema. RESPIRATORY: Denies cough or dyspnea. GASTROINTESTINAL: Denies abdominal pain, nausea, vomiting, or diarrhea. GENITOURINARY: Denies dysuria or hematuria. SKIN: Denies rash or itching. MUSCULOSKELETAL: Denies back pain, joint pain, or myalgia. NEUROLOGIC: Denies headache, numbness, dizziness, or weakness. PSYCHIATRIC: Denies anxiety or depression. All systems reviewed & are unremarkable except as noted in HPI and below PMFSH Past Medical History Medical History Angina at rest Anxiety Arthritis Back pain CAD (coronary artery disease) CAD (coronary artery disease) of artery bypass graft CHF (congestive heart failure), NYHA class I Chronic hepatitis C Chronic low back pain Chronic pain Depression Diabetes H/O: HTN (hypertension) Heart disease History of colon polyps Hyperlipidemia Hypertension Insomnia Left above-knee amputee Myocardial infarction Osteoarthritis involving joints of upper arms, bilateral Peripheral neuropathy Peripheral vascular disease Seizure Seizures SOB (shortness of breath) Vitamin D deficiency Surgical History Surgical History Above knee amputation of left lower extremity Amputation of left lower extremity 11/1985 H/O aortic valve replacement H/O cardiac catheterization H/O vascular surgery History of appendectomy Hx of CABG Family History Family History Other No problems noted. Father No problems noted. Mother No problems noted. Social History Social History Social History: Patient is . He lives with his who is his POA. He is a full code. He previously smoked 1 pack per day times 30 years quitting 2018. No current alcohol use. Smokes cannabis about twice per week for pain control. Also uses CBD ointment. Smoking packs per day: 1 Smoking cigarettes per day: 20.0 Years smoked: 30 Smoking pack-years: 30.00 Smoking status: Former smoker Tobacco type: cigarettes Second hand tobacco smoke exposure: No Smoking end date: 08/25/17 Additional smoking assessment comments: pt states he stopped smoking 15 years ago Alcohol intake: never Substance use: current Substance use type: marijuana Last use: 01/20/21 Gender identity
[2021-12-23 07:32] VITALS: BP 184/72; PULSE 72; RESP 18; O2SAT 95
== END 2021-12-23 07:30 | disposition home or self-care (01) ==
PROVIDERS: Emergency Provider Emergency Medicine; PCP Family Medicine
DX: M79.605 Pain in left leg (principal); F41.9 Anxiety disorder, unspecified; M19.90 Unspecified osteoarthritis, unspecified site; I25.10 Atherosclerotic heart disease of native coronary artery without angina pectoris; I50.9 Heart failure, unspecified; G89.29 Other chronic pain; F32.A Depression, unspecified; I11.0 Hypertensive heart disease with heart failure; E78.5 Hyperlipidemia, unspecified; I25.2 Old myocardial infarction; E11.42 Type 2 diabetes mellitus with diabetic polyneuropathy; E11.51 Type 2 diabetes mellitus with diabetic peripheral angiopathy without gangrene; Z89.612 Acquired absence of left leg above knee; Z87.891 Personal history of nicotine dependence; Z79.82 Long term (current) use of aspirin; Z79.899 Other long term (current) drug therapy; Z86.19 Personal history of other infectious and parasitic diseases
CPT/HCPCS: 96365; 96375; 99284; J0131; J1885; J2270

== ENCOUNTER 2021-12-23 20:55 | Emergency (ER) | payer MEDICARE, SELFPAY ==
[2021-12-23 21:09] VITALS: BP 139/66; PULSE 75; RESP 16; TEMP 36.4; O2SAT 98
--- NOTE | 2021-12-23 23:12 | ED.LOWEXIN ---
HPI - Extremity Injury (Lower) General Chief Complaint: Extremity Injury, Lower Stated Complaint: stump pain to left leg amputation Time Seen by Provider: 12/23/21 23:05 History of Present Illness HPI Narrative: Patient is a 56-year-old male who presents ER with pain in his left leg. Left leg is actually an amputated stump. He has chronic pain in the affected area. He takes morphine at home to control his pain. He is not due for refill on his medication until tomorrow. He ran out of medication early because he had taken it more often than prescribed. No new trauma. No fevers or chills or sweats. Was seen in the ER last night for similar issue. Patient reports the pain makes him feel anxious. Related Data Home Medications Medication Instructions Recorded Confirmed aspirin 81 mg tablet,delayed 81 mg PO DAILY 09/20/19 10/26/21 release nitroglycerin 0.4 mg sublingual 0.4 mg SUBLINGUAL Q5M PRN 09/20/19 10/26/21 tablet clopidogrel 75 mg PO DAILY 10/23/20 10/26/21 cyclobenzaprine 10 mg PO TID PRN 10/23/20 10/26/21 metoprolol tartrate 50 mg PO BID 10/23/20 10/26/21 nortriptyline 50 mg PO HS 10/23/20 10/26/21 gemfibrozil 600 mg PO BID 01/21/21 10/26/21 simvastatin 20 mg tablet 20 mg PO DAILY 03/20/21 10/26/21 Allergies Allergy/AdvReac Type Severity Reaction Status Date / Time No Known Allergies Allergy Verified 12/23/21 04:34 Review of Systems Constitutional: Constitutional: Denies chills and Denies fever(s) Musculoskeletal: Musculoskeletal: Denies arthralgias and Denies joint swelling Comments: Stump pain Integumentary/Breasts: Skin/Breast: Denies pruritus, Denies rash and Denies skin ulcer PMFSH Past Medical History Medical History Angina at rest Anxiety Arthritis Back pain CAD (coronary artery disease) CAD (coronary artery disease) of artery bypass graft CHF (congestive heart failure), NYHA class I Chronic hepatitis C Chronic low back pain Chronic pain Depression Diabetes H/O: HTN (hypertension) Heart disease History of colon polyps Hyperlipidemia Hypertension Insomnia Left above-knee amputee Myocardial infarction Osteoarthritis involving joints of upper arms, bilateral Peripheral neuropathy Peripheral vascular disease Seizure Seizures SOB (shortness of breath) Vitamin D deficiency Surgical History Surgical History Above knee amputation of left lower extremity Amputation of left lower extremity 11/1985 H/O aortic valve replacement H/O cardiac catheterization H/O vascular surgery History of appendectomy Hx of CABG Family History Family History Other No problems noted. Father No problems noted. Mother No problems noted. Social History Social History Social History: Patient is . He lives with his who is his POA. He is a full code. He previously smoked 1 pack per day times 30 years quitting 2018. No current alcohol use. Smokes cannabis about twice per week for pain control. Also uses CBD ointment. Smoking packs per day: 1 Smoking cigarettes per day: 20.0 Years smoked: 30 Smoking pack-years: 30.00 Smoking status: Former smoker Tobacco type: cigarettes Second hand tobacco smoke exposure: No Smoking end date: 08/25/17 Additional smoking assessment comments: pt states he stopped smoking 15 years ago Alcohol intake: never Substance use: current Substance use type: marijuana Last use: 01/20/21 Gender identity (if verbalized by the patient): Male Spiritual care concerns: No Agree to blood products: Yes Exam Narrative: GENERAL: Well-appearing, well-nourished, and in no acute distress. HEAD: Normocephalic, atraumatic. ENT: Mucous membranes moist. CHEST: Clear to auscultation. No respiratory distress.
[2021-12-23] MEDS: MORPHINE SULFATE (*CRX) 4 MG/ML INJ IM (23:31)
== END 2021-12-24 | disposition home or self-care (01) ==
LOC: ANHED 23:19
PROVIDERS: Emergency Provider Emergency Medicine; PCP Family Medicine
DX: M79.605 Pain in left leg (principal); F41.9 Anxiety disorder, unspecified; M19.90 Unspecified osteoarthritis, unspecified site; I25.10 Atherosclerotic heart disease of native coronary artery without angina pectoris; I50.9 Heart failure, unspecified; G89.29 Other chronic pain; F32.A Depression, unspecified; E11.42 Type 2 diabetes mellitus with diabetic polyneuropathy; E11.51 Type 2 diabetes mellitus with diabetic peripheral angiopathy without gangrene; I11.0 Hypertensive heart disease with heart failure; E78.5 Hyperlipidemia, unspecified; I25.2 Old myocardial infarction; Z86.19 Personal history of other infectious and parasitic diseases; Z89.612 Acquired absence of left leg above knee; Z79.82 Long term (current) use of aspirin; Z79.899 Other long term (current) drug therapy; Z87.891 Personal history of nicotine dependence
CPT/HCPCS: 96365; 96372; 96375; 99283; 99284; J0131; J1885; J2270

== ENCOUNTER 2022-01-06 20:38 | Emergency (ER) | payer MEDICARE, SELFPAY ==
[2022-01-06] VITALS (12 sets, daily range): BP systolic 145–191; BP diastolic 59–101; PULSE 49–62; RESP 10–22; TEMP 36.2; O2SAT 98–100
[2022-01-06 20:46] LABS: Glucose Point of Care 129 mg/dl (65-105)
--- NOTE | 2022-01-06 21:23 | ECG_ITS ---
Measurements Intervals [place] Rate: 53 P: 59 [place]: 193 QRS: 26 QRSD: 103 T: 96 QT: 497 QTc: 467 Interpretive Statements SINUS BRADYCARDIA DELAYED PRECORDIAL R/S TRANSITION INFERIOR INFARCT, AGE INDETERMINATE BORDERLINE ST-T WAVE ABNORMALITY- HIGH LATERAL LEADS BASELINE ARTIFACT- I, II, III, AVR, AVL, AVF, V1-V6 ABNORMAL ECG Electronically Signed On 01-07-2022 6:52:24 CDT by Dylan Baker D.O.
[2022-01-06 21:31] LABS: Glucose Point of Care 55 mg/dl (65-105)
--- NOTE | 2022-01-06 21:36 | PC.NURSE ---
BG TAKEN AND RESULT WAS 55 PT RECEIVED PRN AMP OF GLUCOSE IVP PROVIDER ASKED STAFF TO FEED THE PT. WILL CHECK BG ORDERED
[2022-01-06] MEDS: DEXTROSE 50% 25 GM/50 ML SYRINGE IV PUSH (21:38)
--- NOTE | 2022-01-06 23:05 | PC.NURSE ---
assuming care of pt.
--- NOTE | 2022-01-06 23:22 | ED.RECABL ---
HPI - Recheck/Abnormal Lab/Rx General Chief Complaint: Recheck/Abnormal Lab/Rx Stated Complaint: Hypoglycemia History of Present Illness HPI narrative: 48-year-old male presenting after being found altered by his , he had given himself insulin earlier but had not eaten anything, she called EMS, he was found to have blood sugar in the 20s, given dextrose with immediate improvement in symptoms. He is currently denies any symptoms, he says that he just wants to take a nap and go home. Related Data Home Medications Medication Instructions Recorded Confirmed aspirin 81 mg tablet,delayed 81 mg PO DAILY 09/20/19 10/26/21 release nitroglycerin 0.4 mg sublingual 0.4 mg SUBLINGUAL Q5M PRN 09/20/19 10/26/21 tablet clopidogrel 75 mg PO DAILY 10/23/20 10/26/21 cyclobenzaprine 10 mg PO TID PRN 10/23/20 10/26/21 metoprolol tartrate 50 mg PO BID 10/23/20 10/26/21 nortriptyline 50 mg PO HS 10/23/20 10/26/21 gemfibrozil 600 mg PO BID 01/21/21 10/26/21 simvastatin 20 mg tablet 20 mg PO DAILY 03/20/21 10/26/21 Allergies Allergy/AdvReac Type Severity Reaction Status Date / Time No Known Allergies Allergy Verified 01/06/22 20:45 Review of Systems Review of Systems: CONST: No fever. HEENT: No sore throat C/V: No chest pain RESP: No cough GI: No nausea or vomiting : No dysuria. M/S: No joint pain. SKIN: No rash. NEURO: [No headache or focal numbness or weakness] PSYCH: [No depression] [facility] Past Medical History Medical History Angina at rest Anxiety Arthritis Back pain CAD (coronary artery disease) CAD (coronary artery disease) of artery bypass graft CHF (congestive heart failure), NYHA class I Chronic hepatitis C Chronic low back pain Chronic pain Depression Diabetes H/O: HTN (hypertension) Heart disease History of colon polyps Hyperlipidemia Hypertension Insomnia Left above-knee amputee Myocardial infarction Osteoarthritis involving joints of upper arms, bilateral Peripheral neuropathy Peripheral vascular disease Seizure Seizures SOB (shortness of breath) Vitamin D deficiency Surgical History Surgical History Above knee amputation of left lower extremity Amputation of left lower extremity 11/1985 H/O aortic valve replacement H/O cardiac catheterization H/O vascular surgery History of appendectomy Hx of CABG Family History Family History Other No problems noted. Father No problems noted. Mother No problems noted. Social History Social History Social History: Patient is . He lives with his who is his POA. He is a full code. He previously smoked 1 pack per day times 30 years quitting 2018. No current alcohol use. Smokes cannabis about twice per week for pain control. Also uses CBD ointment. Smoking packs per day: 1 Smoking cigarettes per day: 20.0 Years smoked: 30 Smoking pack-years: 30.00 Smoking status: Former smoker Tobacco type: cigarettes Second hand tobacco smoke exposure: No Smoking end date: 08/25/17 Additional smoking assessment comments: pt states he stopped smoking 15 years ago Alcohol intake: never Substance use: current Substance use type: marijuana Last use: 01/20/21 Gender identity (if verbalized by the patient): Male Spiritual care concerns: No Agree to blood products: Yes Exam Narrative: EXAMINATION OF ORGAN SYSTEMS/BODY AREAS: Constitutional: Vital signs per nursing GENERAL:[No acute distress, non-toxic appearing.] HEAD: Normal with no signs of head trauma. EYES: EOMI, conjunctiva normal ENT: Hearing grossly intact LUNGS: Nonlabored breathing. HEART: Bradycardic ABD: [Soft], [nontender to palpation] EXT: Left AKA SKIN: [No rashes or lesions.] NEURO: [Alert and oriented x 3. No gross focal sensory
[2022-01-06 23:36] LABS: Glucose Point of Care 94 mg/dl (65-105)
[2022-01-07 00:52] LABS: Glucose Point of Care 81 mg/dl (65-105)
[2022-01-07 01:10] VITALS: BP 167/60; PULSE 56; RESP 18; O2SAT 96
[2022-01-07 01:33] LABS: Basophils Percent Auto 0.2 % (0.2-1.2); Eosinophils Absolute Auto 0.1 K/mm3 (0-0.3); Eosinophils Percent Auto 0.6 % (0-4.4); Hematocrit 47.1 % (42.0-52.0); Hemoglobin 15.9 g/dL (14.0-18.0); Immature Granulocyte Absolute 0.05 K/mm3 (0.00-0.031); Immature Granulocyte Percent A 0.4 % (0-0.5); Lymphocytes Absolute Auto 2.52 K/mm3 (0.9-3.2); Lymphocytes Percent Auto 18.7 % (18.3-44.2); Mean Corpuscular HGB Conc 33.8 g/dl (32-36); Mean Corpuscular Hemoglobin 32.2 pg (26-34); Mean Corpuscular Volume 95.3 fl (80-100); Mean Platelet Volume 11.2 fl (7.4-10.4); Monocytes Absolute Auto 1.2 K/mm3 (0.1-0.6); Monocytes Percent Auto 9.1 % (2.6-8.5); Neutrophils Absolute Auto 9.6 K/mm3 (1.3-6.7); Platelet Count Result 224 k/mm3 (150-375); Red Blood Count 4.94 M/mm3 (4.6-6.20); White Blood Count 13.5 K/mm3 (4.5-10.0)
[2022-01-07 01:45] LABS: Alanine Aminotransferase 20 U/L (6-50); Albumin Level 3.9 g/dL (3.5-5.1); Alkaline Phosphatase 139 U/L (38-126); Anion Gap 7 mmol/L (8-16); Aspartate Amino Transferase 34 U/L (17-59); Bilirubin,Total 0.2 mg/dL (0.2-1.3); Blood Urea Nitrogen 19 mg/dL (9-20); Calcium 8.9 mg/dL (8.4-10.2); Carbon Dioxide 28 mmol/L (22-30); Chloride 101 mmol/L (98-107); Estimated CRCL calculation 89 ml/min; Estimated Glomerular Filt Rate > 60; Glucose 92 mg/dL (65-110); Potassium 4.3 mmol/L (3.4-5.0); Sodium 136 mmol/L (137-145)
[2022-01-07 02:28] LABS: Glucose Point of Care 132 mg/dl (65-105)
[2022-01-07 03:11] VITALS: BP 150/62; PULSE 65; RESP 18; O2SAT 96
== END 2022-01-07 03:13 | disposition home or self-care (01) ==
PROVIDERS: Emergency Provider Emergency Medicine; PCP Family Medicine
DX: E11.649 Type 2 diabetes mellitus with hypoglycemia without coma (principal); E11.59 Type 2 diabetes mellitus with other circulatory complications; I50.9 Heart failure, unspecified; I11.0 Hypertensive heart disease with heart failure; I25.810 Atherosclerosis of coronary artery bypass graft(s) without angina pectoris; E11.51 Type 2 diabetes mellitus with diabetic peripheral angiopathy without gangrene; E11.42 Type 2 diabetes mellitus with diabetic polyneuropathy; B18.2 Chronic viral hepatitis C; E78.5 Hyperlipidemia, unspecified; I25.2 Old myocardial infarction; M19.90 Unspecified osteoarthritis, unspecified site; F41.9 Anxiety disorder, unspecified; F32.A Depression, unspecified; Z86.010 Personal history of colon polyps; Z89.612 Acquired absence of left leg above knee; Z95.2 Presence of prosthetic heart valve; Z95.1 Presence of aortocoronary bypass graft; Z79.4 Long term (current) use of insulin; Z79.82 Long term (current) use of aspirin; Z87.891 Personal history of nicotine dependence
CPT/HCPCS: 36415; 80053; 82948; 85025; 93005; 96374; 99284

== ENCOUNTER 2022-04-19 20:56 | Emergency (ER) | payer MEDICARE, SELFPAY ==
--- NOTE | ~2022-04-19 | XR_ITS ---
EXAMINATION: XR sacrum coccyx min 2V DATE: 04/19/2022 21:37 INDICATION: Tailbone pain post fall TECHNIQUE: A couple AP and a lateral view of the sacrum and coccyx were obtained. COMPARISON: CT dated 10/26/2021 FINDINGS: Old healed fractures of the right superior and inferior pubic rami. Left leg amputation at the level of the hip with some heterotopic ossification an additional old fracture at the left acetab ulum. Sacral arches appear intact. No evident fracture of the sacrum and coccyx. Mild lower lumbar sp ondylosis. Stenting along the left common and external iliac arteries. IMPRESSION: 1. No acute osseous abnormality. 2. Status post left leg amputation at the level of the hip joint and old fracture deformities at the left acetabulum and right superior and inferior pubic rami. Reviewed, dictated and finalized at location A. IMPRESSION: 1. No acute osseous abnormality. 2. Status post left leg amputation at the level of the hip joint and old fractu re deformities at the left acetabulum and right superior and inferior pubic nicho i.
--- NOTE | ~2022-04-19 | CT_ITS ---
EXAMINATION: CT lumbar spine wo con DATE: 04/19/2022 23:46 INDICATION: Low back pain TECHNIQUE: Computed tomography (CT) of the lumbar spine was performed without intravenous contrast. T he dose-length product (DLP) was 1716.58 mGy-cm. Iterative reconstruction was used. COMPARISON: CT, 10/26/2021 FINDINGS: Bone alignment is normal. There is no fracture. There is mild loss of intervertebral disc s pace height at L1-2 and L5-S1. The vertebral body heights are normal. Small degenerative osteophytes project from the anterior endplates of multiple vertebral bodies. IMPRESSION: 1. Mild lumbar spondylosis without acute findings. Reviewed, dictated and finalized at location A.
[2022-04-19 21:08] VITALS: BP 158/74; PULSE 80; RESP 20; TEMP 36.4; O2SAT 99
[2022-04-19] MEDS: HYDROcodone/acetaminophen (*CRX) 5-325 MG TABLET 1 TAB PO (23:21)
--- NOTE | 2022-04-19 23:35 | ED.GENADULT ---
HPI - General Adult General Chief complaint: Back Pain/Injury <Cezar Mathew MD - Last Filed: 04/19/22 23:40> Stated complaint: tailbone pain <Cezar Mathew MD - Last Filed: 04/19/22 23:40> Time Seen by Provider: 04/19/22 23:08 <Cezar Mathew MD - Last Filed: 04/19/22 23:40> History of Present Illness HPI narrative: 56-year-old male presented to the emergency department for evaluation of low back pain/sacral pain. Patient has had 2 falls over the last few days. Patient states he had a fall approximately a week ago and had an additional fall approximately 2 days ago. Patient did not tell his about the falls until today. <Cezar Mathew MD - Last Filed: 04/19/22 23:40> Related Data Home medications: Home Medications Medication Instructions Recorded Confirmed aspirin 81 mg tablet,delayed 81 mg PO DAILY 09/20/19 10/26/21 release (Adult Low Dose Aspirin) nitroglycerin 0.4 mg sublingual 0.4 mg sublingual Q5M PRN chest 09/20/19 10/26/21 tablet (Nitrostat) pain clopidogrel 75 mg tablet 75 mg PO DAILY 10/23/20 10/26/21 cyclobenzaprine 10 mg tablet 10 mg PO TID PRN Muscle Spasm 10/23/20 10/26/21 metoprolol tartrate 50 mg tablet 50 mg PO BID 10/23/20 10/26/21 nortriptyline 50 mg capsule 50 mg PO HS 10/23/20 10/26/21 gemfibrozil 600 mg tablet 600 mg PO BID 01/21/21 10/26/21 simvastatin 20 mg tablet 20 mg PO DAILY 03/20/21 10/26/21 <Cezar Mathew MD - Last Filed: 04/19/22 23:40> Allergies/adverse reactions: Allergies Allergy/AdvReac Type Severity Reaction Status Date / Time No Known Allergies Allergy Verified 04/19/22 21:12 <Cezar Mathew MD - Last Filed: 04/19/22 23:40> Review of Systems Review of Systems: CONSTITUTIONAL: Denies fever, chills, or sweats. EYES: Denies visual changes, redness, or discharge. ENT: Denies rhinorrhea, congestion, sore throat, or otalgia. CARDIOVASCULAR: Denies chest pain, palpitations, or edema. RESPIRATORY: Denies cough or dyspnea. GASTROINTESTINAL: Denies abdominal pain, nausea, vomiting, or diarrhea. GENITOURINARY: Denies dysuria or hematuria. SKIN: Denies rash or itching. MUSCULOSKELETAL: Denies back pain, joint pain, or myalgia. NEUROLOGIC: Low back pain <Cezar Mathew MD - Last Filed: 04/19/22 23:40> [facility] Past Medical History Medical History: Medical History Angina at rest Anxiety Arthritis Back pain CAD (coronary artery disease) CAD (coronary artery disease) of artery bypass graft CHF (congestive heart failure), NYHA class I Chronic hepatitis C Chronic low back pain Chronic pain Depression Diabetes H/O: HTN (hypertension) Heart disease History of colon polyps Hyperlipidemia Hypertension Insomnia Left above-knee amputee Myocardial infarction Osteoarthritis involving joints of upper arms, bilateral Peripheral neuropathy Peripheral vascular disease Seizure Seizures SOB (shortness of breath) Vitamin D deficiency <Cezar Mathew MD - Last Filed: 04/19/22 23:40> Surgical History Surgical History: Surgical History Above knee amputation of left lower extremity Amputation of left lower extremity 11/1985 H/O aortic valve replacement H/O cardiac catheterization H/O vascular surgery History of appendectomy Hx of CABG <Cezar Matehw MD - Last Filed: 04/19/22 23:40> Family History Family History: Family History Other No problems noted. Father No problems noted. Mother No problems noted. <Cezar Mathew MD - Last Filed: 04/19/22 23:40> Social History Social History: Social History Social History: Patient is . He lives with his who is his POA. He is a full code. He previously smoked 1 pack per day times 30 years quitting 2018. No current alcoh
== END 2022-04-20 00:35 | disposition left against medical advice (07) ==
PROVIDERS: Emergency Provider Emergency Medicine; PCP Family Medicine
DX: S39.92XA Unspecified injury of lower back, initial encounter (principal); I25.810 Atherosclerosis of coronary artery bypass graft(s) without angina pectoris; I50.9 Heart failure, unspecified; I11.0 Hypertensive heart disease with heart failure; E78.5 Hyperlipidemia, unspecified; B18.2 Chronic viral hepatitis C; I25.2 Old myocardial infarction; G62.9 Polyneuropathy, unspecified; I73.9 Peripheral vascular disease, unspecified; E55.9 Vitamin D deficiency, unspecified; M54.50 Low back pain, unspecified; G89.29 Other chronic pain; F32.A Depression, unspecified; F41.9 Anxiety disorder, unspecified; Z86.010 Personal history of colon polyps; Z79.82 Long term (current) use of aspirin; Z89.612 Acquired absence of left leg above knee; Z95.2 Presence of prosthetic heart valve; Z95.1 Presence of aortocoronary bypass graft; Z87.891 Personal history of nicotine dependence; W19.XXXA Unspecified fall, initial encounter
CPT/HCPCS: 72131; 72220; 99284; A9270

== ENCOUNTER 2022-04-24 01:11 | Emergency (ER) | payer MEDICARE, SELFPAY ==
[2022-04-24] VITALS (30 sets, daily range): BP systolic 156–215; BP diastolic 72–161; PULSE 103; RESP 19; TEMP 36.4; O2SAT 96–100
--- NOTE | ~2022-04-24 | CT_ITS ---
EXAMINATION: CT abdomen pelvis w con DATE: 04/24/2022 03:38 INDICATION: Right lower quadrant abdominal pain. Sacral pain. Nausea and vomiting. TECHNIQUE: Computed tomography (CT) of the abdomen and pelvis was performed with 100 mL Omnipaque 350 intravenous contrast. Automated exposure control and iterative reconstruction technique were employe d. The dose-length product was 1219.68 mGy-cm. COMPARISON: CT abdomen and pelvis 10/26/2021 FINDINGS: The visualized portions of the lung bases demonstrate smooth septal thickening, consistent with mild pulmonary edema. There is mild dependent atelectasis bilaterally. There is a small left ple ural effusion. The heart size is normal. There are coronary artery calcifications. Median sternotomy wires are noted. The liver, gallbladder, spleen, pancreas, and adrenal glands are normal. There is co rtical thinning of the kidneys. There is calcified atherosclerosis of the aorta and many of the other arteries. There are stents in right common iliac artery and right external iliac artery. 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 There are no dilated loops of bowel. The appendix is no t visualized. There are no pathologically enlarged lymph nodes. There is no free intraperitoneal flui d. There are changes of left lower limb amputation. There are old healed fractures of right superior and inferior pubic rami. There is mild thoracolumbar spondylosis. There is an old healed fracture of left sacral ala. IMPRESSION: 1. Mild pulmonary edema. 2. Small left pleural effusion. Reviewed, dictated and finalized at location A.
[2022-04-24 02:51] LABS: Basophils Percent Auto 0.2 % (0.2-1.2); Eosinophils Percent Auto 0.1 % (0-4.4); Hematocrit 44.5 % (42.0-52.0); Hemoglobin 15.3 g/dL (14.0-18.0); Immature Granulocyte Absolute 0.04 K/mm3 (0.00-0.031); Immature Granulocyte Percent A 0.3 % (0-0.5); Lymphocytes Absolute Auto 1.32 K/mm3 (0.9-3.2); Lymphocytes Percent Auto 10.6 % (18.3-44.2); Mean Corpuscular HGB Conc 34.4 g/dl (32-36); Mean Corpuscular Hemoglobin 31.5 pg (26-34); Mean Corpuscular Volume 91.6 fl (80-100); Mean Platelet Volume 11.4 fl (7.4-10.4); Monocytes Absolute Auto 0.8 K/mm3 (0.1-0.6); Monocytes Percent Auto 6.3 % (2.6-8.5); Neutrophils Absolute Auto 10.3 K/mm3 (1.3-6.7); Neutrophils Percent Auto 82.5 % (45.5-73.1); Platelet Count Result 275 k/mm3 (150-375); Red Blood Count 4.86 M/mm3 (4.6-6.20); Red Cell Distribution Width 13.4 % (11.5-14.5); White Blood Count 12.5 K/mm3 (4.5-10.0)
[2022-04-24 03:04] LABS: Alanine Aminotransferase 37 U/L (6-50); Albumin Level 3.9 g/dL (3.5-5.1); Alkaline Phosphatase 202 U/L (38-126); Anion Gap 14 mmol/L (8-16); Aspartate Amino Transferase 32 U/L (17-59); Bilirubin,Total 0.7 mg/dL (0.2-1.3); Blood Urea Nitrogen 14 mg/dL (9-20); Calcium 9.5 mg/dL (8.4-10.2); Carbon Dioxide 24 mmol/L (22-30); Chloride 97 mmol/L (98-107); Estimated CRCL calculation 82 ml/min; Estimated Glomerular Filt Rate > 60; Glucose 293 mg/dL (65-110); Lipase 30 U/L (23-300); Potassium 4.5 mmol/L (3.4-5.0); Sodium 135 mmol/L (137-145)
--- NOTE | 2022-04-24 03:06 | ED.ABDPAIN ---
HPI - Abdominal Pain General Chief Complaint: Abdominal Pain <DESTINI Sanchez Last Filed: 04/24/22 04:42> Stated Complaint: abd pain/back pain <DESTINI Sanchez Last Filed: 04/24/22 04:42> Time Seen by Provider: 04/24/22 02:29 <DESTINI Sanchez Last Filed: 04/24/22 04:42> Source: patient and old records reviewed <DESTINI Sanchez Last Filed: 04/24/22 04:42> Mode of arrival: ambulatory <DESTINI Sanchez Last Filed: 04/24/22 04:42> Limitations: no limitations <DESTINI Sanchez Last Filed: 04/24/22 04:42> History of Present Illness HPI narrative: Patient is a 56-year-old male who presents the ED with report of abdominal pain and lower back pain. Patient reports he lost his balance and fell a little over 1 week ago. He complains of pain to his lower pelvic region/tailbone. He was seen in the ED at that time and had an unremarkable sacrum and coccyx x-ray, showing old injury. CT scan of lumbar spine was obtained, so patient left before results returned. Patient states pain never fully improved. He fell again 3 days ago, landing on his buttocks. He complains of worsening pain to his pelvic region since then. He also reports over the last couple days he has had pain in his lower abdomen, in addition to nausea and vomiting. He has been taking ibuprofen at home without much relief. No bowel or bladder incontinence, saddle anesthesia, weakness, numbness. No fevers at home. Patient did not have abdominal pain at the time of his evaluation in the ED 1 week ago. <DESTINI Sanchez Last Filed: 04/24/22 04:42> Related Data Home Medications: Home Medications Medication Instructions Recorded Confirmed aspirin 81 mg tablet,delayed 81 mg PO DAILY 09/20/19 10/26/21 release (Adult Low Dose Aspirin) nitroglycerin 0.4 mg sublingual 0.4 mg sublingual Q5M PRN chest 09/20/19 10/26/21 tablet (Nitrostat) pain clopidogrel 75 mg tablet 75 mg PO DAILY 10/23/20 10/26/21 cyclobenzaprine 10 mg tablet 10 mg PO TID PRN Muscle Spasm 10/23/20 10/26/21 metoprolol tartrate 50 mg tablet 50 mg PO BID 10/23/20 10/26/21 nortriptyline 50 mg capsule 50 mg PO HS 10/23/20 10/26/21 gemfibrozil 600 mg tablet 600 mg PO BID 01/21/21 10/26/21 simvastatin 20 mg tablet 20 mg PO DAILY 03/20/21 10/26/21 <Emma Cosme PA-C - Last Filed: 04/24/22 04:42> Allergies/Adverse Reactions: Allergies Allergy/AdvReac Type Severity Reaction Status Date / Time No Known Allergies Allergy Verified 04/24/22 01:19 <Emma Cosme PA-C - Last Filed: 04/24/22 04:42> Review of Systems Review of Systems: CONSTITUTIONAL: Denies fever, chills, or sweats. CARDIOVASCULAR: Denies chest pain. RESPIRATORY: Denies dyspnea. GASTROINTESTINAL: Reports lower ABD pain, N/V. Denies incontinence, constipation, diarrhea. MUSCULOSKELETAL: Reports lower back pain. NEUROLOGIC: Denies tingling, numbness, or weakness. <Emma Cosme PA-C - Last Filed: 04/24/22 04:42> All systems reviewed & are unremarkable except as noted in HPI and below <Emma Cosme PA-C - Last Filed: 04/24/22 04:42> [facility] Past Medical History Medical History: Medical History Angina at rest Anxiety Arthritis Back pain CAD (coronary artery disease) CAD (coronary artery disease) of artery bypass graft CHF (congestive heart failure), NYHA class I Chronic hepatitis C Chronic low back pain Chronic pain Depression Diabetes H/O: HTN (hypertension) Heart disease History of colon polyps Hyperlipidemia Hypertension Insomnia Left above-knee amputee Myocardial infarction Osteoarthritis involving joints of upper arms, bilateral Peripheral neuropathy Peripheral vascular disease Seizure Seizures SOB (shortness of breath) Vitamin D deficiency <Emma Cosme PA-C - Last Filed: 04/24/22 04:42
[2022-04-24] MEDS: ONDANSETRON INJ 4 MG/2 ML VIAL IV PUSH (03:09)
[2022-04-24] MEDS: MORPHINE SULFATE (*CRX) 4 MG/ML INJ IV PUSH (03:09)
[2022-04-24] MEDS: SODIUM CHLORIDE 0.9% IV 1,000 ML 999 ML IV CONT (03:20)
[2022-04-24] MEDS: HYDROmorphone HCL INJ (*CRX) 1 MG/ML SYR IV PUSH (03:52)
[2022-04-24 05:05] LABS: Appearance Urine Clear (Clear); Bilirubin Urine 1+ (Negative); Blood Urine 2+ (Negative); Color Urine Yellow (Yellow); Glucose Urine UA 2+ mg/dL (Negative); Ketones Urine 2+ mg/dL (Negative); Leukocyte Esterase Ur Negative LEU/UL (Negative); Nitrate Urine Negative (Negative); Protein Urine 3+ mg/dL (Negative)
[2022-04-24 05:06] LABS: Bacteria Urine Trace /hpf; Mucus Urine Rare /lpf
[2022-04-24 05:13] LABS: Add Urine Microscopic? YES
== END 2022-04-24 06:39 | disposition home or self-care (01) ==
PROVIDERS: Physician Assistant; Emergency Provider Emergency Medicine; PCP Family Medicine
DX: J90 Pleural effusion, not elsewhere classified (principal); M54.50 Low back pain, unspecified; R10.30 Lower abdominal pain, unspecified; I25.810 Atherosclerosis of coronary artery bypass graft(s) without angina pectoris; I50.9 Heart failure, unspecified; I11.0 Hypertensive heart disease with heart failure; E78.5 Hyperlipidemia, unspecified; B18.2 Chronic viral hepatitis C; I25.2 Old myocardial infarction; G62.9 Polyneuropathy, unspecified; I73.9 Peripheral vascular disease, unspecified; E55.9 Vitamin D deficiency, unspecified; F32.A Depression, unspecified; F41.9 Anxiety disorder, unspecified; Z86.010 Personal history of colon polyps; Z79.82 Long term (current) use of aspirin; Z89.612 Acquired absence of left leg above knee; Z95.2 Presence of prosthetic heart valve; Z95.1 Presence of aortocoronary bypass graft; Z87.891 Personal history of nicotine dependence
CPT/HCPCS: 36415; 74177; 80053; 81001; 83690; 85025; 96361; 96374; 96375; 99284; J1170; J2270; J2405; J7030; Q9967

== ENCOUNTER 2022-05-17 16:41 | Observation (INO) | payer MEDICARE, SELFPAY ==
[2022-05-17] VITALS (16 sets, daily range): BP systolic 157–159; BP diastolic 75–96; PULSE 47–79; RESP 12–24; TEMP 36.3; O2SAT 90–100; BMI 28.9
--- NOTE | ~2022-05-17 | US_ITS ---
US arterial ankle brachial ind INDICATION: Patient has vascular stents in the right leg. Patient's left leg amputated at the hip. TECHNIQUE: Segmental pressures and plethysmographic and Doppler waveforms of the brachial and lower e xtremity arteries were obtained. COMPARISON: None. FINDINGS: Right and left brachial artery pressures of 189 mm Hg and 175 mm Hg, respectively, are concordant (no rmal difference <= 30 mmHg). The right ankle-brachial index (TAD) is 0.62 (normal >= 0.9-1.0). The right great toe-brachial index (TBI) is 0.4 (normal >= 0.60). IMPRESSION: 1. Diminished right ankle and toe brachial indices consistent with moderate peripheral arterial disea se. Reviewed, dictated and finalized at location A. IMPRESSION: 1. Diminished right ankle and toe brachial indices consistent with moderate per ipheral arterial disease.
--- NOTE | ~2022-05-17 | XR_ITS ---
EXAMINATION: XR chest 1V portable INDICATION: Altered mental status TECHNIQUE: Portable AP chest at 1704 hours COMPARISON: 01/21/2021 FINDINGS: There are patchy opacities throughout the lungs. No pleural effusion or pneumothorax. The h eart size is stable. There are changes of prior cardiac surgery. IMPRESSION: 1. Patchy bilateral airspace opacities, consistent with pneumonia and/or pulmonary edema. Reviewed, dictated and finalized at location A. IMPRESSION: 1. Patchy bilateral airspace opacities, consistent with pneumonia and/or pulmon venancio edema.
[2022-05-17] MEDS: DEXTROSE 50% 25 GM/50 ML SYRINGE IV PUSH (16:50)
--- NOTE | 2022-05-17 16:56 | ED.GENADULT ---
HPI - General Adult General Chief complaint: Altered Mental Status Stated complaint: unresponsive Time Seen by Provider: 05/17/22 16:46 History of Present Illness HPI narrative: This is a 48-year-old gentleman presenting ED for altered mental status. Per the patient's he has been acting normally last several days. Again the cart he became diaphoretic and confused. She then brought him to the hospital for further evaluation. This time the patient is not able to answer questions. Related Data Home Medications Medication Instructions Recorded Confirmed aspirin 81 mg tablet,delayed 81 mg PO DAILY 09/20/19 10/26/21 release (Adult Low Dose Aspirin) nitroglycerin 0.4 mg sublingual 0.4 mg sublingual Q5M PRN chest 09/20/19 10/26/21 tablet (Nitrostat) pain clopidogrel 75 mg tablet 75 mg PO DAILY 10/23/20 10/26/21 cyclobenzaprine 10 mg tablet 10 mg PO TID PRN Muscle Spasm 10/23/20 10/26/21 metoprolol tartrate 50 mg tablet 50 mg PO BID 10/23/20 10/26/21 nortriptyline 50 mg capsule 50 mg PO HS 10/23/20 10/26/21 gemfibrozil 600 mg tablet 600 mg PO BID 01/21/21 10/26/21 simvastatin 20 mg tablet 20 mg PO DAILY 03/20/21 10/26/21 Allergies Allergy/AdvReac Type Severity Reaction Status Date / Time No Known Allergies Allergy Verified 04/24/22 01:19 Review of Systems Review of Systems: ROS unobtainable: Yes unobtainable due to medical condition PMFSH Past Medical History Medical History Angina at rest Anxiety Arthritis Back pain CAD (coronary artery disease) CAD (coronary artery disease) of artery bypass graft CHF (congestive heart failure), NYHA class I Chronic hepatitis C Chronic low back pain Chronic pain Depression Diabetes H/O: HTN (hypertension) Heart disease History of colon polyps Hyperlipidemia Hypertension Insomnia Left above-knee amputee Myocardial infarction Osteoarthritis involving joints of upper arms, bilateral Peripheral neuropathy Peripheral vascular disease Seizure Seizures SOB (shortness of breath) Vitamin D deficiency Surgical History Surgical History Above knee amputation of left lower extremity Amputation of left lower extremity 11/1985 H/O aortic valve replacement H/O cardiac catheterization H/O vascular surgery History of appendectomy Hx of CABG Family History Family History Other No problems noted. Father No problems noted. Mother No problems noted. Social History Social History Social History: Patient is . He lives with his who is his POA. He is a full code. He previously smoked 1 pack per day times 30 years quitting 2018. No current alcohol use. Smokes cannabis about twice per week for pain control. Also uses CBD ointment. Smoking packs per day: 1 Smoking cigarettes per day: 20.0 Years smoked: 30 Smoking pack-years: 30.00 Smoking status: Former smoker Tobacco type: cigarettes Second hand tobacco smoke exposure: No Smoking end date: 08/25/17 Additional smoking assessment comments: pt states he stopped smoking 15 years ago Alcohol intake: never Substance use: current Substance use type: marijuana Last use: 01/20/21 Gender identity (if verbalized by the patient): Male Spiritual care concerns: No Agree to blood products: Yes Exam Narrative: APPEARANCE: Patient is diaphoretic Head atraumatic. EYES: PERRLA/EOMI, Pupils are 3 mm equal and reactive NOSE: Normal no drainage NECK: Supple, Trachea midline RESPIRATORY: CTAB, No increased work of breathing. CARDIOVASCULAR: S1S2 appreciated ABDOMINAL: Soft, nontender, nondistended, MUSCULOSKELETAl: patient has amputation of the left leg NEURO: responsive to voice. Moving all 3/3 extremities. SKIN:: Warm, dry. Normal color PSYCHIATRIC: N
--- NOTE | 2022-05-17 16:57 | ECG_ITS ---
Measurements Intervals [place] Rate: 45 P: 22 ND: 186 QRS: 23 QRSD: 106 T: 79 QT: 530 QTc: 462 Interpretive Statements SINUS BRADYCARDIA POSSIBLE LEFT ATRIAL ENLARGEMENT DELAYED PRECORDIAL R/S TRANSITION LEFT VENTRICULAR HYPERTROPHY WITH ST-T CHANGE INFERIOR INFARCT, AGE INDETERMINATE BASELINE WANDER- V1 ABNORMAL ECG COMPARED TO ECG 01/06/2022 20:43:24 NO SIGNIFICANT CHANGES Electronically Signed On 05-17-2022 17:03:30 CDT by Dylan Baker D.O.
[2022-05-17 17:07] LABS: Basophils Absolute Auto 0.1 K/mm3 (0.0-0.1); Basophils Percent Auto 0.4 % (0.2-1.2); Eosinophils Absolute Auto 0.7 K/mm3 (0-0.3); Eosinophils Percent Auto 5.4 % (0-4.4); Hematocrit 44.1 % (42.0-52.0); Hemoglobin 14.7 g/dL (14.0-18.0); Immature Granulocyte Absolute 0.03 K/mm3 (0.00-0.031); Immature Granulocyte Percent A 0.2 % (0-0.5); Lymphocytes Absolute Auto 4.92 K/mm3 (0.9-3.2); Lymphocytes Percent Auto 39.3 % (18.3-44.2); Mean Corpuscular HGB Conc 33.3 g/dl (32-36); Mean Corpuscular Hemoglobin 31.5 pg (26-34); Mean Corpuscular Volume 94.4 fl (80-100); Monocytes Absolute Auto 1.4 K/mm3 (0.1-0.6); Monocytes Percent Auto 11.3 % (2.6-8.5); Neutrophils Absolute Auto 5.4 K/mm3 (1.3-6.7); Neutrophils Percent Auto 43.4 % (45.5-73.1); Platelet Count Result 207 k/mm3 (150-375); Red Blood Count 4.67 M/mm3 (4.6-6.20); Red Cell Distribution Width 13.7 % (11.5-14.5); White Blood Count 12.5 K/mm3 (4.5-10.0)
--- NOTE | 2022-05-17 17:22 | PC.NURSE ---
Patient diaphoretic and unresponsive upon arrival to ED. Blood glucose of 20. 1 amp D50 administered. Patient alert and oriented after administration of medication. Short term memory impaired. Patient provided box meal. Will repeat blood glucose after patient eats.
[2022-05-17 17:36] LABS: Anion Gap 13 mmol/L (8-16); Blood Urea Nitrogen 18 mg/dL (9-20); Calcium 8.8 mg/dL (8.4-10.2); Carbon Dioxide 27 mmol/L (22-30); Chloride 99 mmol/L (98-107); Estimated CRCL calculation 97 ml/min; Estimated Glomerular Filt Rate > 60; Glucose 196 mg/dL (65-110); Potassium 3.3 mmol/L (3.4-5.0); Sodium 139 mmol/L (137-145)
[2022-05-17 17:40] LABS: Glucose Point of Care 63 mg/dl (65-105)
--- NOTE | 2022-05-17 17:59 | PC.NURSE ---
Dr. Goncalves notified of patient's repeat blood glucose of 63. Patient given two orange juices and another sandwich. Will recheck blood glucose again after patient eats.
[2022-05-17 18:47] LABS: Glucose Point of Care 85 mg/dl (65-105)
--- NOTE | 2022-05-17 18:59 | PC.NURSE ---
Patient's blood glucose rechecked and currently 85. Dr. Goncalves notified and orders received to recheck in 1 hour. Pt in no acute distress. Patient lying quietly in stretcher with eyes closed. Respirations regular and non-labored.
[2022-05-17 20:22] LABS: Glucose Point of Care 99 mg/dl (65-105)
[2022-05-17] MEDS: DEXTROSE 5%/0.9% SOD CHL 1,000 ML 100 ML IV CONT (21:23)
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
[2022-05-17 21:50] LABS: Glucose Point of Care 121 mg/dl (65-105)
[2022-05-17 22:14] LABS: SARS-CoV-2 RNA PCR Negative
--- NOTE | 2022-05-17 22:29 | ADMGEN ---
This patient, Calvin Flores, was admitted to IMU Room 210-01 at 2155. Patient/family oriented to hospital policies and general routines including ID bracelet, bed and alarms, visiting hours, pain management, procedures, bathroom and other care routines, personal items, smoking policy, room service/diet, and visiting hours. Information on how to activate the Rapid Response Team has been discussed. Patient/Family are encouraged to report perceived risks to care and to ask questions if they do not understand what they are told or what they should do.
[2022-05-17 23:42] LABS: Glucose Point of Care 139 mg/dl (65-105)
[2022-05-18] VITALS (14 sets, daily range): BP systolic 105–175; BP diastolic 58–85; PULSE 55–73; RESP 16–20; TEMP 36.1–37.2; O2SAT 96–100
[2022-05-18] MEDS: POTASSIUM CHLORIDE 20 MEQ TABLET 40 MEQ PO (01:20)
[2022-05-18 02:01] LABS: Glucose Point of Care 127 mg/dl (65-105)
[2022-05-18 05:18] LABS: Glucose Point of Care 170 mg/dl (65-105)
[2022-05-18 06:13] LABS: Basophils Percent Auto 0.4 % (0.2-1.2); Eosinophils Absolute Auto 0.4 K/mm3 (0-0.3); Eosinophils Percent Auto 4.7 % (0-4.4); Hematocrit 43.7 % (42.0-52.0); Hemoglobin 14.2 g/dL (14.0-18.0); Immature Granulocyte Absolute 0.02 K/mm3 (0.00-0.031); Immature Granulocyte Percent A 0.2 % (0-0.5); Lymphocytes Absolute Auto 3.48 K/mm3 (0.9-3.2); Lymphocytes Percent Auto 36.9 % (18.3-44.2); Mean Corpuscular HGB Conc 32.5 g/dl (32-36); Mean Corpuscular Hemoglobin 31.1 pg (26-34); Mean Corpuscular Volume 95.8 fl (80-100); Mean Platelet Volume 12.7 fl (7.4-10.4); Monocytes Absolute Auto 1.1 K/mm3 (0.1-0.6); Monocytes Percent Auto 11.5 % (2.6-8.5); Neutrophils Absolute Auto 4.4 K/mm3 (1.3-6.7); Neutrophils Percent Auto 46.3 % (45.5-73.1); Platelet Count Result 159 k/mm3 (150-375); Red Blood Count 4.56 M/mm3 (4.6-6.20); Red Cell Distribution Width 13.7 % (11.5-14.5); White Blood Count 9.4 K/mm3 (4.5-10.0)
[2022-05-18 06:24] LABS: Hemoglobin A1C 7.7 % (<5.7)
[2022-05-18 06:31] LABS: Alanine Aminotransferase 23 U/L (6-50); Albumin Level 3.3 g/dL (3.5-5.1); Alkaline Phosphatase 153 U/L (38-126); Anion Gap 11 mmol/L (8-16); Aspartate Amino Transferase 29 U/L (17-59); Bilirubin,Total 0.2 mg/dL (0.2-1.3); Blood Urea Nitrogen 15 mg/dL (9-20); Calcium 8.3 mg/dL (8.4-10.2); Carbon Dioxide 27 mmol/L (22-30); Chloride 101 mmol/L (98-107); Estimated CRCL calculation 94 ml/min; Estimated Glomerular Filt Rate > 60; Glucose 154 mg/dL (65-110); Magnesium 1.7 mg/dL (1.6-2.3); Sodium 139 mmol/L (137-145)
[2022-05-18] MEDS: MORPHINE SULFATE (*CRX) 60 MG TABCR PO ×2 (06:37→20:55)
[2022-05-18 07:01] LABS: Procalcitonin 0.1 ng/mL
[2022-05-18 08:18] LABS: Glucose Point of Care 147 mg/dl (65-105)
[2022-05-18] MEDS: DEXTROSE 5%/0.9% SOD CHL 1,000 ML 50 ML IV CONT (11:45)
[2022-05-18] MEDS: FLUoxetine HCL 20 MG CAPSULE 80 MG PO (11:46)
[2022-05-18] MEDS: CLOPIDOGREL BISULFATE 75 MG TABLET PO (11:46)
[2022-05-18] MEDS: ASPIRIN 81 MG ENTERIC TABLET PO (11:46)
[2022-05-18] MEDS: METOPROLOL TARTRATE 50 MG TAB PO ×2 (11:47→20:52)
[2022-05-18] MEDS: FUROSEMIDE 40 MG TABLET PO (11:47)
[2022-05-18] MEDS: lisinopriL 20 MG TABLET PO (11:47)
[2022-05-18] MEDS: PANTOPRAZOLE 40 MG TABLET PO (11:48)
[2022-05-18] MEDS: ROSUVASTATIN 10 MG TABLET PO (11:48)
[2022-05-18] MEDS: PREGABALIN (*CRX) 75 MG CAPSULE 150 MG PO ×2 (11:49→17:01)
[2022-05-18 12:37] LABS: Glucose Point of Care 238 mg/dl (65-105)
--- NOTE | 2022-05-18 15:30 | PM.IMPN ---
Progress Note: A&P Assessment and Plan (1) Hypoglycemia: Code(s): E16.2 - Hypoglycemia, unspecified Status: Acute (2) Unresponsive episode: Code(s): R41.89 - Other symptoms and signs involving cognitive functions and awareness Status: Acute (3) Insulin dependent type 2 diabetes mellitus: Code(s): E11.9 - Type 2 diabetes mellitus without complications; Z79.4 - terminal clerk (current) use of insulin Status: Acute (4) Hypokalemia: Code(s): E87.6 - Hypokalemia Status: Acute (5) Hypertension: Qualifiers: Hypertension type: essential hypertension Qualified Code(s): I10 - Essential (primary) hypertension Code(s): I10 - Essential (primary) hypertension Status: Acute (6) Peripheral vascular disease: Code(s): I73.9 - Peripheral vascular disease, unspecified Status: Acute (7) Abnormal chest x-ray: Code(s): R93.89 - Abnormal findings on diagnostic imaging of other specified body structures Status: Acute Plan # altered mental status due to hypoglycemia. Glucose 20 upon arrival to the ER improved with D50. Started on dextrose drip. Continue to monitor Accu-Cheks. # hypoglycemia: Likely due to insulin use. Has lost 50 lb in the last 6 months intentionally and most likely has lowered his insulin requirement at with his weight loss. His A1c came back at 7.7. Back in October 2021 which noted to have A1c of 11.1. He is on NPH 70/30 at 60 in am and 50 in pm. this has rcenlty been increased and have noticed hypoglycemia since then.with weight based dosing, will reduce this to 20 units bid. Similar episode in the past in January 13 with hypoglycemia which is related to insulin use without having his meals. Might benefit from continuous glucose monitor which needs to be discussed with his PCP. Will also provide with the Emergency glucagon kit at discharge 1st hypoglycemic episodes. Hypoglycemia awareness and monitoring reviewed with the patient. document design specialist to evaluate. Also needs consistency in his eating pattern # abnormal chest x-ray: Chest x-ray read as pneumonia and/or pulmonary edema. He is however asymptomatic. WBC count is mildly elevated but could be stress related. No indication of antibiotics for now. Does not look volume overloaded as well COVID test done in the ER was negative. Repeat WBC count this morning was already normal without any antibiotics. # hypertension home medication # type 2 diabetes mellitus on insulin at home # hyperlipidemia on rosuvastatin # chronic low back pain on chronic opiate therapy # coronary artery disease status post CABG # peripheral vascular disease status post revascularization surgery :TAD with moderate peripheral arterial disease # status post left AKA # peripheral neuropathy # anxiety depression # DVT prophylax # code status full code Subjective Date/time seen: 05/18/22 15:30 Interval history: HPI:This is a pleasant 56-year-old male with insulin dependent type 2 diabetes mellitus, coronary artery disease, peripheral vascular disease, hypertension, and other comorbidities who presented to the emergency department via private vehicle for evaluation of an unresponsive episode. he felt in his usual state of health when he woke this morning.? Not long prior to arrival he and his went out to molded goods spot picker something for dinner and while driving home he started to feel confused and weak. He was so confused that he proceeded to drive right by either home. At that time his insisted that he snout puller and he slid over into the passenger seat, not long thereafter he became unresponsive and she drove him immediately to the ER. There was no mention of seizure activity. He was hypoglycemic and he was given an amp of dextrose with initial improvement in his glucose however his numbers have progressively started to fall back below 100 despite eating and he is being admitted in this setting for closer monitoring.
[2022-05-18] MEDS: INSULIN HUMAN ISOPHAN/REGULAR 70/30 (*BKC) 100 UNITS/ML 20 UNITS SUB-Q (17:04)
[2022-05-18 17:05] LABS: Glucose Point of Care 196 mg/dl (65-105)
[2022-05-18 18:26] LABS: Glucose Point of Care 184 mg/dl (65-105)
[2022-05-18 20:31] LABS: Glucose Point of Care 276 mg/dl (65-105)
--- NOTE | 2022-05-18 22:28 | PC.NURSE ---
This patient, Calvin Flores, was transferred to room [facility] on 05/18/22 at 2220. Personal belongings sent with patient. Report given to ÁLVARO Kent. Appropriate documentation sent with patient.
--- NOTE | 2022-05-18 22:35 | ADMGEN ---
This patient, Calvin Flores, was admitted to 2 Medical Room 240-. Patient/family oriented to hospital policies and general routines including ID bracelet, bed and alarms, visiting hours, pain management, procedures, bathroom and other care routines, personal items, smoking policy, room service/diet, and visiting hours. Information on how to activate the Rapid Response Team has been discussed. Patient/Family are encouraged to report perceived risks to care and to ask questions if they do not understand what they are told or what they should do.
[2022-05-19 05:51] VITALS: BP 132/71; PULSE 63; RESP 20; TEMP 36.8; O2SAT 97
[2022-05-19 08:45] LABS: Glucose Point of Care 176 mg/dl (65-105)
[2022-05-19] MEDS: INSULIN HUMAN ISOPHAN/REGULAR 70/30 (*BKC) 100 UNITS/ML 20 UNITS SUB-Q (09:30)
[2022-05-19] MEDS: CLOPIDOGREL BISULFATE 75 MG TABLET PO (09:32)
[2022-05-19] MEDS: ASPIRIN 81 MG ENTERIC TABLET PO (09:32)
[2022-05-19] MEDS: ENOXAPARIN 40 MG/0.4 ML SYRINGE SUB-Q (09:32)
[2022-05-19] MEDS: FLUoxetine HCL 20 MG CAPSULE 80 MG PO (09:32)
[2022-05-19] MEDS: FUROSEMIDE 40 MG TABLET PO (09:33)
[2022-05-19] MEDS: lisinopriL 20 MG TABLET PO (09:33)
[2022-05-19 09:34] VITALS: PULSE 60
[2022-05-19] MEDS: METOPROLOL TARTRATE 50 MG TAB PO (09:34)
[2022-05-19] MEDS: ROSUVASTATIN 10 MG TABLET PO (09:35)
[2022-05-19] MEDS: MORPHINE SULFATE (*CRX) 60 MG TABCR PO (09:35)
[2022-05-19] MEDS: PANTOPRAZOLE 40 MG TABLET PO (09:35)
[2022-05-19] MEDS: PREGABALIN (*CRX) 75 MG CAPSULE 150 MG PO (09:35)
--- NOTE | 2022-05-19 10:51 | PM.DS ---
DS: Admitting Diagnosis Discharge Date 05/19/2022 Admitting Diagnosis Hypoglycemia DS: Discharge Diagnosis Discharge Diagnosis (1) Hypoglycemia: Code(s): E16.2 - Hypoglycemia, unspecified Status: Acute (2) Unresponsive episode: Code(s): R41.89 - Other symptoms and signs involving cognitive functions and awareness Status: Acute (3) Insulin dependent type 2 diabetes mellitus: Code(s): E11.9 - Type 2 diabetes mellitus without complications; Z79.4 - FPC (current) use of insulin Status: Acute (4) Hypokalemia: Code(s): E87.6 - Hypokalemia Status: Acute (5) Hypertension: Qualifiers: Hypertension type: essential hypertension Qualified Code(s): I10 - Essential (primary) hypertension Code(s): I10 - Essential (primary) hypertension Status: Acute (6) Peripheral vascular disease: Code(s): I73.9 - Peripheral vascular disease, unspecified Status: Acute (7) Abnormal chest x-ray: Code(s): R93.89 - Abnormal findings on diagnostic imaging of other specified body structures Status: Acute DS: Summary Hospital Course Hospital Course: # altered mental status due to hypoglycemia. Glucose 20 upon arrival to the ER improved with D50. Started on dextrose drip. Continue to monitor Accu-Cheks which remains stable. See below # hypoglycemia: Likely due to insulin use. Has lost 50 lb in the last 6 months intentionally and most likely has lowered his insulin requirement at with his weight loss. His A1c came back at 7.7. Back in October 2021 which noted to have A1c of 11.1. He is on NPH 70/30 at 60 in am and 50 in pm. this has rcenlty been increased and have noticed hypoglycemia since then.with weight based dosing, his dosing was reduced to 20 units b.i.d.. This will be increased to 30 units b.i.d. at discharge. His insulin dosing will need to be adjusted according to his food intake and suggested his to stay on consistent carbohydrate diet which was discussed during the hospitalization. He had similar episode in the past in December 2021 with hypoglycemia which was related to insulin use without having his meals. He will benefit from continuous glucose monitor and have encouraged him to discuss this option with his primary care. Might not have cover his for this from his insurance that needs to be sorted out. Will also provide him with the Emergency glucagon kit at discharge. Hypoglycemia awareness and monitoring reviewed with the patient. # abnormal chest x-ray: Chest x-ray read as pneumonia and/or pulmonary edema. He is however asymptomatic. WBC count is mildly elevated but could be stress related. No indication of antibiotics for now. Does not look volume overloaded as well COVID test done in the ER was negative. Repeat WBC count this morning was already normal without any antibiotics. # hypertension home medication # type 2 diabetes mellitus on insulin at home # hyperlipidemia on rosuvastatin # chronic low back pain on chronic opiate therapy # coronary artery disease status post CABG # peripheral vascular disease status post revascularization surgery :TAD with moderate peripheral arterial disease # status post left AKA # peripheral neuropathy #anxiety depression # DVT prophylax # code status full code Time Spent with Patient Time attestation: Total time spent providing and/or coordinating discharge services: 40 minutes Exam Narrative: General: Mildly ill-appearing male supine in bed. HEENT: Normocephalic, atraumatic. PERRL, EOMI. Sclera anicteric. Tacky mucous membranes. Neck: Supple. Nontender Respiratory: Lungs are clear to auscultation bilaterally. No respiratory distress Cardiovascular: Regular rate and rhythm with S1-S2. 2/6 systolic murmur at the upper sternal border. Gastrointestinal: Abdomen is soft, nontender, and nondistended with positive bowel sounds. Skin: Warm and dry. Extremities: St
[2022-05-20 10:48] LABS: Glucose Point of Care 20 mg/dl (65-105)
== END 2022-05-19 11:57 | disposition home or self-care (01) ==
LOC: ANHED 20:30 → ANHIMU 21:14 → ANH2MED 05-18 22:32
PROVIDERS: Physician Assistant; Admitting Provider Internal Medicine; Emergency Provider Emergency Medicine; PCP Family Medicine; Visit Provider Internal Medicine
DX: E11.649 Type 2 diabetes mellitus with hypoglycemia without coma (principal); R41.89 Other symptoms and signs involving cognitive functions and awareness; R41.82 Altered mental status, unspecified; E11.42 Type 2 diabetes mellitus with diabetic polyneuropathy; E87.6 Hypokalemia; I11.0 Hypertensive heart disease with heart failure; R93.89 Abnormal findings on diagnostic imaging of other specified body structures; R61 Generalized hyperhidrosis; F41.9 Anxiety disorder, unspecified; M19.90 Unspecified osteoarthritis, unspecified site; E11.51 Type 2 diabetes mellitus with diabetic peripheral angiopathy without gangrene; I25.10 Atherosclerotic heart disease of native coronary artery without angina pectoris; Z95.1 Presence of aortocoronary bypass graft; I50.9 Heart failure, unspecified; B18.2 Chronic viral hepatitis C; M54.50 Low back pain, unspecified; G89.29 Other chronic pain; F32.A Depression, unspecified; E78.5 Hyperlipidemia, unspecified; Z89.612 Acquired absence of left leg above knee; I25.2 Old myocardial infarction; Z20.822 Contact with and (suspected) exposure to COVID-19; R06.02 Shortness of breath; R00.1 Bradycardia, unspecified; I73.9 Peripheral vascular disease, unspecified; E55.9 Vitamin D deficiency, unspecified; F12.90 Cannabis use, unspecified, uncomplicated; Z95.2 Presence of prosthetic heart valve; R94.31 Abnormal electrocardiogram [ECG] [EKG]; Z86.69 Personal history of other diseases of the nervous system and sense organs; Z87.891 Personal history of nicotine dependence; Z79.4 Long term (current) use of insulin; Z79.01 Long term (current) use of anticoagulants; Z79.82 Long term (current) use of aspirin; Z79.899 Other long term (current) drug therapy
CPT/HCPCS: 36415; 71045; 80048; 80053; 82948; 83036; 83735; 84145; 85025; 86140; 93005; 93922; 96361; 96372; 96374; 99285; A9270; C9803; G0378; J1650; J1815; J7042; U0003; U0005

== ENCOUNTER 2022-05-26 20:28 | Emergency (ER) | payer MEDICARE, SELFPAY ==
--- NOTE | ~2022-05-26 | CT_ITS ---
EXAMINATION: CT abdomen pelvis w con DATE: 05/26/2022 23:02 INDICATION: Right lower quadrant abdominal pain. Nausea and vomiting. TECHNIQUE: Computed tomography (CT) of the abdomen and pelvis was performed with 100 mL Omnipaque 350 intravenous contrast. Automated exposure control and iterative reconstruction technique were employe d. The dose-length product was 1252.79 mGy-cm. COMPARISON: CT abdomen and pelvis 04/24/2022 FINDINGS: The visualized portions of the lung bases demonstrate smooth septal thickening, consistent with mild pulmonary edema. There is a small left pleural effusion. The heart size is normal. There ar e coronary artery calcifications. No pericardial effusion. The liver, gallbladder, spleen, pancreas, and adrenal glands are normal. There is cortical thinning of the kidneys. There are no dilated loops of bowel. The appendix is not visualized. There are no pathologically enlarged lymph nodes. There is no free intraperitoneal fluid. There is calcified atherosclerosis of the aorta and many of the other arteries. There is mild stenosis of celiac axis, superior mesenteric artery, and the renal arteries. There is mild stenosis of the abdominal aorta. There is total occlusion of left common iliac artery a nd external iliac artery. There is mild stenosis of right common iliac artery. There is a patent sten t in right external iliac artery. There are old healed fractures of right superior and inferior pubic rami. There is amputation of left lower limb. There is an old healed fracture deformity of left acet abulum. Median sternotomy wires are noted. There is mild lumbar spondylosis. IMPRESSION: 1. Mild pulmonary edema. 2. Small left pleural effusion. Reviewed, dictated and finalized at location B.
[2022-05-26 20:49] VITALS: BP 154/81; PULSE 94; RESP 16; O2SAT 100
[2022-05-26 21:12] VITALS: BP 203/78; PULSE 87; RESP 17; TEMP 36.6; O2SAT 100
[2022-05-26 21:20] LABS: Basophils Absolute Auto 0.1 K/mm3 (0.0-0.1); Basophils Percent Auto 0.4 % (0.2-1.2); Eosinophils Percent Auto 0.3 % (0-4.4); Hematocrit 47.1 % (42.0-52.0); Hemoglobin 16.1 g/dL (14.0-18.0); Immature Granulocyte Absolute 0.04 K/mm3 (0.00-0.031); Immature Granulocyte Percent A 0.3 % (0-0.5); Lymphocytes Absolute Auto 1.99 K/mm3 (0.9-3.2); Lymphocytes Percent Auto 15.5 % (18.3-44.2); Mean Corpuscular HGB Conc 34.2 g/dl (32-36); Mean Corpuscular Hemoglobin 31.3 pg (26-34); Mean Corpuscular Volume 91.6 fl (80-100); Mean Platelet Volume 12.2 fl (7.4-10.4); Monocytes Absolute Auto 1.2 K/mm3 (0.1-0.6); Monocytes Percent Auto 9.1 % (2.6-8.5); Neutrophils Absolute Auto 9.5 K/mm3 (1.3-6.7); Neutrophils Percent Auto 74.4 % (45.5-73.1); Platelet Count Result 218 k/mm3 (150-375); Red Blood Count 5.14 M/mm3 (4.6-6.20); Red Cell Distribution Width 13.2 % (11.5-14.5); White Blood Count 12.8 K/mm3 (4.5-10.0)
[2022-05-26 21:37] LABS: Alanine Aminotransferase 23 U/L (6-50); Albumin Level 4.1 g/dL (3.5-5.1); Alkaline Phosphatase 185 U/L (38-126); Anion Gap 13 mmol/L (8-16); Aspartate Amino Transferase 32 U/L (17-59); Bilirubin,Total 0.8 mg/dL (0.2-1.3); Blood Urea Nitrogen 14 mg/dL (9-20); Calcium 9.4 mg/dL (8.4-10.2); Carbon Dioxide 23 mmol/L (22-30); Chloride 99 mmol/L (98-107); Estimated CRCL calculation 85 ml/min; Estimated Glomerular Filt Rate > 60; Glucose 280 mg/dL (65-110); Lipase 31 U/L (23-300); Potassium 4.4 mmol/L (3.4-5.0); Sodium 135 mmol/L (137-145)
[2022-05-26 21:52] VITALS: BP 229/83; PULSE 77
[2022-05-26 21:54] VITALS: BP 232/79; PULSE 77
[2022-05-26 21:54] LABS: Glucose Point of Care 297 mg/dl (65-105)
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
[2022-05-26] MEDS: methocarbamoL 750 MG TABLET 1500 MG PO (23:12)
[2022-05-26 23:32] LABS: SARS-CoV-2 RNA PCR Negative
[2022-05-27 00:12] LABS: Appearance Urine Clear (Clear); Bilirubin Urine 2+ (Negative); Blood Urine 2+ (Negative); Color Urine Yellow (Yellow); Glucose Urine UA 2+ mg/dL (Negative); Ketones Urine 2+ mg/dL (Negative); Leukocyte Esterase Ur Negative LEU/UL (Negative); Nitrate Urine Negative (Negative); Protein Urine 3+ mg/dL (Negative)
[2022-05-27 00:17] LABS: Mucus Urine Rare /lpf; Squamous Epithelial Cell Urine Rare /hpf (Few)
[2022-05-27 00:42] LABS: Add Urine Microscopic? YES
[2022-05-27] MEDS: CEPHALEXIN 500 MG CAPSULE PO (01:52)
[2022-05-27] MEDS: HYDROcodone/acetaminophen (*CRX) 5-325 MG TABLET 1 TAB PO (01:52)
[2022-05-27 01:55] VITALS: BP 217/82; PULSE 94; RESP 18; O2SAT 100
== END 2022-05-27 01:58 | disposition home or self-care (01) ==
PROVIDERS: Emergency Provider Emergency Medicine; PCP Family Medicine
DX: N10 Acute pyelonephritis (principal); J90 Pleural effusion, not elsewhere classified; G89.29 Other chronic pain; I11.0 Hypertensive heart disease with heart failure; I50.9 Heart failure, unspecified; E11.42 Type 2 diabetes mellitus with diabetic polyneuropathy; I25.2 Old myocardial infarction; B18.2 Chronic viral hepatitis C; E11.51 Type 2 diabetes mellitus with diabetic peripheral angiopathy without gangrene; I25.10 Atherosclerotic heart disease of native coronary artery without angina pectoris; F32.A Depression, unspecified; F41.9 Anxiety disorder, unspecified; Z79.4 Long term (current) use of insulin; Z79.82 Long term (current) use of aspirin; Z79.02 Long term (current) use of antithrombotics/antiplatelets; Z95.4 Presence of other heart-valve replacement; Z95.1 Presence of aortocoronary bypass graft; Z87.891 Personal history of nicotine dependence; F12.90 Cannabis use, unspecified, uncomplicated; Z20.822 Contact with and (suspected) exposure to COVID-19
CPT/HCPCS: 36415; 74177; 80053; 81001; 82948; 83690; 85025; 96365; 99284; A9270; C9803; J0131; Q9967; U0003; U0005

== ENCOUNTER 2022-05-27 08:15 | Emergency (ER) | payer MEDICARE, SELFPAY ==
[2022-05-27 08:19] VITALS: BP 209/89; PULSE 113; RESP 18; TEMP 36.6; O2SAT 100
[2022-05-27] MEDS: PANTOPRAZOLE SODIUM IV 40 MG VIAL IV PUSH (08:53)
[2022-05-27] MEDS: ONDANSETRON INJ 4 MG/2 ML VIAL IV PUSH (08:53)
[2022-05-27] MEDS: MORPHINE SULFATE (*CRX) 4 MG/ML INJ IV PUSH (08:53)
[2022-05-27 08:57] LABS: Basophils Percent Auto 0.2 % (0.2-1.2); Eosinophils Absolute Auto 0.1 K/mm3 (0-0.3); Eosinophils Percent Auto 0.8 % (0-4.4); Hemoglobin 16.8 g/dL (14.0-18.0); Immature Granulocyte Absolute 0.02 K/mm3 (0.00-0.031); Immature Granulocyte Percent A 0.2 % (0-0.5); Lymphocytes Absolute Auto 2.81 K/mm3 (0.9-3.2); Lymphocytes Percent Auto 24.4 % (18.3-44.2); Mean Corpuscular HGB Conc 34.3 g/dl (32-36); Mean Corpuscular Hemoglobin 31.2 pg (26-34); Mean Corpuscular Volume 90.9 fl (80-100); Monocytes Percent Auto 8.8 % (2.6-8.5); Neutrophils Absolute Auto 7.6 K/mm3 (1.3-6.7); Neutrophils Percent Auto 65.6 % (45.5-73.1); Platelet Count Result 236 k/mm3 (150-375); Red Blood Count 5.39 M/mm3 (4.6-6.20); Red Cell Distribution Width 13.2 % (11.5-14.5); White Blood Count 11.5 K/mm3 (4.5-10.0)
[2022-05-27 09:15] LABS: Lactic Acid Reflex 3.3 mmol/L (0.7-2.0)
[2022-05-27 09:40] VITALS: BP 217/84; PULSE 96; RESP 18; O2SAT 98
[2022-05-27 09:53] LABS: Alanine Aminotransferase 22 U/L (6-50); Alkaline Phosphatase 192 U/L (38-126); Anion Gap 16 mmol/L (8-16); Aspartate Amino Transferase 28 U/L (17-59); Bilirubin,Total 0.7 mg/dL (0.2-1.3); Blood Urea Nitrogen 14 mg/dL (9-20); Calcium 9.2 mg/dL (8.4-10.2); Carbon Dioxide 18 mmol/L (22-30); Chloride 98 mmol/L (98-107); Estimated CRCL calculation 78 ml/min; Estimated Glomerular Filt Rate > 60; Glucose 295 mg/dL (65-110); Potassium 3.9 mmol/L (3.4-5.0); Sodium 132 mmol/L (137-145)
[2022-05-27 10:16] VITALS: PULSE 104
[2022-05-27] MEDS: METOPROLOL TARTRATE 50 MG TAB PO (10:16)
[2022-05-27] MEDS: lisinopriL 20 MG TABLET PO (10:16)
[2022-05-27] MEDS: SODIUM CHLORIDE 0.9% IV 1,000 ML 999 ML IV CONT (10:28)
[2022-05-27 11:44] VITALS: BP 164/99; PULSE 105; RESP 17; O2SAT 99
[2022-05-27 11:48] LABS: Lactic Acid Reflex 1.8 mmol/L (0.7-2.0)
[2022-05-27 11:52] LABS: Reflex Lactic Acid Yes or No Add Lactic
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
== END 2022-05-27 12:11 | disposition home or self-care (01) ==
PROVIDERS: Emergency Provider Emergency Medicine; PCP Family Medicine
DX: R11.2 Nausea with vomiting, unspecified (principal); R10.31 Right lower quadrant pain; I11.0 Hypertensive heart disease with heart failure; I50.9 Heart failure, unspecified; I25.10 Atherosclerotic heart disease of native coronary artery without angina pectoris; B18.2 Chronic viral hepatitis C; E78.5 Hyperlipidemia, unspecified; I25.2 Old myocardial infarction; E11.42 Type 2 diabetes mellitus with diabetic polyneuropathy; E11.51 Type 2 diabetes mellitus with diabetic peripheral angiopathy without gangrene; I73.9 Peripheral vascular disease, unspecified; E55.9 Vitamin D deficiency, unspecified; Z89.612 Acquired absence of left leg above knee; Z95.2 Presence of prosthetic heart valve; Z95.1 Presence of aortocoronary bypass graft; Z87.891 Personal history of nicotine dependence; Z79.82 Long term (current) use of aspirin; Z79.4 Long term (current) use of insulin
CPT/HCPCS: 36415; 80053; 83605; 85025; 96361; 96374; 96375; 99284; A9270; C9113; J2270; J2405; J7030

== ENCOUNTER 2022-10-12 23:28 | Emergency (ER) | payer MEDICARE, SELFPAY ==
[2022-10-12 23:32] VITALS: BP 174/81; PULSE 79; RESP 18; TEMP 36.3; O2SAT 100
--- NOTE | 2022-10-12 23:57 | PC.NURSE ---
Patient vomited in waiting room, given an emesis bag.
--- NOTE | 2022-10-13 00:24 | PC.NURSE ---
Patient vomited multiple times in waiting room. manager behavior notified. Patient denies any abd pain, states I just want something for the pain.
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
[2022-10-13] MEDS: MORPHINE SULFATE (*CRX) 60 MG TABCR PO (02:12)
== END 2022-10-13 02:28 | disposition home or self-care (01) ==
PROVIDERS: Emergency Provider Emergency Medicine; PCP Family Medicine
DX: T87.89 Other complications of amputation stump (principal); I11.0 Hypertensive heart disease with heart failure; I50.9 Heart failure, unspecified; E11.42 Type 2 diabetes mellitus with diabetic polyneuropathy; E11.51 Type 2 diabetes mellitus with diabetic peripheral angiopathy without gangrene; I73.9 Peripheral vascular disease, unspecified; I25.10 Atherosclerotic heart disease of native coronary artery without angina pectoris; E78.5 Hyperlipidemia, unspecified; B18.2 Chronic viral hepatitis C; M19.012 Primary osteoarthritis, left shoulder; M19.011 Primary osteoarthritis, right shoulder; F32.A Depression, unspecified; F41.9 Anxiety disorder, unspecified; Z95.4 Presence of other heart-valve replacement; Z95.1 Presence of aortocoronary bypass graft; Z87.891 Personal history of nicotine dependence; Z79.4 Long term (current) use of insulin; Z79.82 Long term (current) use of aspirin; Z89.612 Acquired absence of left leg above knee
CPT/HCPCS: 99283; A9270

== ENCOUNTER 2022-10-27 16:11 | Inpatient (IN) | payer MEDICARE, SELFPAY ==
[2022-10-27] VITALS (9 sets, daily range): BP systolic 141–163; BP diastolic 54–76; PULSE 56–74; RESP 12–69; TEMP 36.4–36.6; O2SAT 96–100; BMI 25.9
--- NOTE | ~2022-10-27 | MR_ITS ---
EXAMINATION: MR brain/brain stem wo/w con DATE: 10/28/2022 08:02 INDICATION: Aphasia. Left arm weakness. TECHNIQUE: Magnetic resonance imaging (MRI) of the brain and brainstem was performed without and with 19 mL MultiHance intravenous contrast. COMPARISON: Head CT 10/27/2022 FINDINGS: There are scattered acute infarcts involving the bilateral frontal, parietal, and occipital lobes and left temporal lobe. There are subacute infarcts involving the right frontal lobe and left parietal and occipital lobes. There is an old infarct in the left caudate nucleus. There are scattere d areas of nonspecific increased T2-weighted signal intensity in the cerebral white matter and sean. There is no intracranial hemorrhage or abnormal mass lesion. The ventricles are normal in size. There is mild mucosal thickening in right maxillary sinus. There are small bilateral mastoid effusions. IMPRESSION: 1. Scattered acute infarcts involving the bilateral frontal, parietal, and occipital lobes and left t emporal lobe. 2. Subacute infarcts involving the right frontal lobe and left parietal and occipital lobes. 3. Old infarct in left caudate nucleus. 4. Moderate nonspecific cerebral white matter disease, which likely represents chronic small vessel i schemic disease. Reviewed, dictated and finalized at location D. CLE FUEL SYSTEMS CONVERTER IMPRESSION: 1. Scattered acute infarcts involving the bilateral frontal, parietal, and occi pital lobes and left temporal lobe. 2. Subacute infarcts involving the right frontal lobe and left parietal and occ ipital lobes. 3. Old infarct in left caudate nucleus. 4. Moderate nonspecific cerebral white matter disease, which likely represents chronic small vessel ischemic disease.
--- NOTE | ~2022-10-27 | XR_ITS ---
EXAMINATION: XR chest 1V portable INDICATION: Left arm weakness TECHNIQUE: Portable AP chest at 1737 hours COMPARISON: 05/17/2022 FINDINGS: There are patchy opacities throughout all lung zones. The heart size is normal for techniqu e. Median sternotomy wires and mediastinal surgical clips are seen, likely from prior coronary artery bypass grafting. No pleural effusion or pneumothorax. IMPRESSION: 1. Patchy bilateral airspace opacities, consistent with atelectasis versus pneumonia. Reviewed, dictated and finalized at location F. CAST ENGINEER IMPRESSION: 1. Patchy bilateral airspace opacities, consistent with atelectasis versus pneu monia.
--- NOTE | ~2022-10-27 | CT_ITS ---
EXAMINATION: CTA brain carotid DATE: 10/27/2022 19:15 INDICATION: Slurred speech TECHNIQUE: Computed tomographic angiography (CTA) of the head was performed with 100 mL Omnipaque-350 intravenous contrast. CTA of the neck was performed with intravenous contrast. The dose-length produ ct was 1268.51 mGy-cm. Maximum intensity projection and volume rendered 3D-reconstructions were creat ed by the technologist on a separate workstation. Automated exposure control and iterative reconstruc tion technique were employed. COMPARISON: 1615 hours FINDINGS: HEAD CTA: There is no acute intraparenchymal hemorrhage. No evidence of mass lesion. Again seen are a reas of hypoattenuation and loss of flor-white matter differentiation in the left frontoparietal basil on. There is mild periventricular and subcortical hypodensity probably related to small vessel ischem ic disease. There is mild prominence of the sulci and ventricles related to cerebral atrophy. Intracr anial calcified cerebral atherosclerosis is noted. There are no extra-axial collections. There is no mass effect or midline shift. The orbits and soft tissues are unremarkable. A polyp or mucous retenti on cyst is noted in the right maxillary sinus. There is no significant stenosis of the basilar artery or posterior cerebral arteries. There is no si gnificant stenosis of the anterior or middle cerebral arteries. The anterior communicating artery and posterior communicating arteries are normal. There is no aneurysm. There is moderate to severe steno sis of the intracranial internal carotid arteries. NECK CTA: There is a 6 mm nodule of the right thyroid. The submandibular and parotid glands are symme tric. There is a small left pleural effusion. Right hilar lymphadenopathy is noted. The esophagus is patulous and contains ingested material. There are no masses identified. The airway is unremarkable. There is mild cervical spondylosis. The superior mediastinum is unremarkable. There is near complete occlusion of the proximal right internal carotid artery. There is 0% stenosis of the proximal left internal carotid artery relative to normal distal artery lumen diameter. IMPRESSION: 1. Areas of hypoattenuation and loss of flor-white matter differentiation in the left frontoparietal region, probable acute infarction. Normal head CTA. 2. Near complete occlusion of the proximal right internal carotid artery. 3. 0% stenosis of the proximal left internal carotid artery relative to normal distal artery lumen di ameter. Reviewed, dictated and finalized at location F. MOTIVE MECHANIC IMPRESSION: 1. Areas of hypoattenuation and loss of flor-white matter differentiation in th e left frontoparietal region, probable acute infarction. Normal head CTA. 2. Near complete occlusion of the proximal right internal carotid artery. 3. 0% stenosis of the proximal left internal carotid artery relative to normal distal artery lumen diameter.
--- NOTE | ~2022-10-27 | CT_ITS ---
EXAMINATION: CT brain wo con INDICATION: Slurred speech COMPARISON: 04/22/2009 TECHNIQUE: Standard unenhanced head CT. The dose-length product (DLP) was 605.33 mGy-cm. The mA was a djusted according to patient size. Iterative reconstruction technique was employed. FINDINGS: There is no acute intraparenchymal hemorrhage. No evidence of mass lesion. There is a chron ic left caudate infarct. There are areas of hypoattenuation and loss of flor-white matter differentia tion in the left frontoparietal region. There is mild periventricular and subcortical hypodensity pro bably related to small vessel ischemic disease. There is mild prominence of the sulci and ventricles related to cerebral atrophy. Intracranial calcified cerebral atherosclerosis is noted. There are no e xtra-axial collections. There is no mass effect or midline shift. The orbits and soft tissues are unr emarkable. The visualized sinuses and mastoid air cells are well aerated. IMPRESSION: 1. Probable areas of acute infarction in the left frontoparietal region. 2. Age related findings. These findings were discussed with Dr. Vicky MD in the Emergency Department at 1643 hours on 3. Reviewed, dictated and finalized at location F. ENG IMPRESSION: 1. Probable areas of acute infarction in the left frontoparietal region. 2. Age related findings. These findings were discussed with Dr. Vicky MD in the Emergency Department at 1643 hours on 10/27/2022.
--- NOTE | 2022-10-27 16:16 | ECG_ITS ---
Measurements Intervals [place] Rate: 58 P: 49 KS: 194 QRS: 11 QRSD: 89 T: 110 QT: 436 QTc: 430 Interpretive Statements SINUS BRADYCARDIA LEFT ATRIAL ENLARGEMENT LEFT VENTRICULAR HYPERTROPHY WITH ST-T CHANGE BORDERLINE R WAVE PROGRESSION, ANTERIOR LEADS INFERIOR INFARCT, AGE INDETERMINATE BORDERLINE ST ABNORMALITY- LATERAL LEADS ABNORMAL ECG COMPARED TO ECG 05/17/2022 16:58:33 HEART RATE HAS INCREASED Electronically Signed On 10-27-2022 17:44:38 [employer]ER[employer] by Dylan Baker D.O.
[2022-10-27 16:30] LABS: Glucose Point of Care 107 mg/dl (65-105)
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
--- NOTE | 2022-10-27 17:16 | PC.NURSE ---
unable to draw blood. Called phlebotomy to draw pt's blood.
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
[2022-10-27] MEDS: DEXTROSE 50% 25 GM/50 ML SYRINGE (18:36)
[2022-10-27 18:41] LABS: Basophils Absolute Auto 0.1 K/mm3 (0.0-0.1); Basophils Percent Auto 0.5 % (0.2-1.2); Eosinophils Absolute Auto 0.7 K/mm3 (0-0.3); Eosinophils Percent Auto 5.6 % (0-4.4); Hematocrit 42.3 % (42.0-52.0); Hemoglobin 13.9 g/dL (14.0-18.0); Immature Granulocyte Absolute 0.03 K/mm3 (0.00-0.031); Immature Granulocyte Percent A 0.2 % (0-0.5); Lymphocytes Absolute Auto 5.92 K/mm3 (0.9-3.2); Lymphocytes Percent Auto 45.1 % (18.3-44.2); Mean Corpuscular HGB Conc 32.9 g/dl (32-36); Mean Corpuscular Hemoglobin 30.5 pg (26-34); Mean Corpuscular Volume 92.8 fl (80-100); Mean Platelet Volume 11.1 fl (7.4-10.4); Monocytes Absolute Auto 1.5 K/mm3 (0.1-0.6); Monocytes Percent Auto 11.3 % (2.6-8.5); Neutrophils Absolute Auto 4.9 K/mm3 (1.3-6.7); Neutrophils Percent Auto 37.3 % (45.5-73.1); Platelet Count Result 243 k/mm3 (150-375); Red Blood Count 4.56 M/mm3 (4.6-6.20); Red Cell Distribution Width 13.6 % (11.5-14.5); White Blood Count 13.1 K/mm3 (4.5-10.0)
[2022-10-27 18:51] LABS: INR 0.9; Prothrombin Time 12.1 Seconds (11.1-14.7)
[2022-10-27 18:52] LABS: Partial Thromboplastin Time 28.6 SECONDS (22.3-36.8)
[2022-10-27 18:55] LABS: Alanine Aminotransferase 29 U/L (6-50); Albumin Level 3.7 g/dL (3.5-5.1); Alkaline Phosphatase 170 U/L (38-126); Anion Gap 4 mmol/L (8-16); Aspartate Amino Transferase 40 U/L (17-59); Bilirubin,Total 0.3 mg/dL (0.2-1.3); Blood Urea Nitrogen 27 mg/dL (9-20); Calcium 8.8 mg/dL (8.4-10.2); Carbon Dioxide 29 mmol/L (22-30); Chloride 101 mmol/L (98-107); Estimated Glomerular Filt Rate 52; Glucose 34 mg/dL (65-110); Potassium 3.8 mmol/L (3.4-5.0); Sodium 134 mmol/L (137-145)
[2022-10-27 19:02] LABS: Glucose Point of Care 100 mg/dl (65-105)
[2022-10-27 19:02] LABS: Glucose Point of Care 41 mg/dl (65-105)
[2022-10-27 19:04] LABS: Troponin I < 0.012 ng/mL (0.000-0.034)
[2022-10-27 19:25] LABS: Glucose Point of Care 81 mg/dl (65-105)
[2022-10-27 20:07] LABS: Glucose Point of Care 115 mg/dl (65-105)
--- NOTE | 2022-10-27 20:18 | PC.NURSE ---
Patient accepted at [facility] (Dr. Dorado). No beds available at this time, hopefully after discharges tomorrow (10/28/22).
[2022-10-27 21:33] LABS: Glucose Point of Care 106 mg/dl (65-105)
--- NOTE | 2022-10-27 22:36 | PC.NURSE ---
Informed [facility] ([place]) that patient is being admitted to room 314 while he waits for a bed at [facility].
--- NOTE | 2022-10-27 22:50 | ADMGEN ---
This patient, Calvin Flores, was admitted to [facility] Surg Room 314-02. Patient/family oriented to hospital policies and general routines including ID bracelet, bed and alarms, visiting hours, pain management, procedures, bathroom and other care routines, personal items, smoking policy, room service/diet, and visiting hours. Information on how to activate the Rapid Response Team has been discussed. Patient/Family are encouraged to report perceived risks to care and to ask questions if they do not understand what they are told or what they should do.
[2022-10-27 23:40] LABS: Glucose Point of Care 146 mg/dl (65-105)
[2022-10-27] MEDS: SODIUM CHLORIDE 0.9% IV 1,000 ML 125 ML IV CONT (23:51)
[2022-10-28] VITALS (11 sets, daily range): BP systolic 145–161; BP diastolic 63–67; PULSE 55–68; RESP 18–20; TEMP 35.7–36.3; O2SAT 98–99
[2022-10-28] MEDS: MORPHINE SULFATE (*CRX) 30 MG TABCR 60 MG PO (00:50)
[2022-10-28] MEDS: METOPROLOL TARTRATE 50 MG TAB PO ×3 (00:51→21:03)
[2022-10-28 03:46] LABS: Glucose Point of Care 162 mg/dl (65-105)
[2022-10-28 07:19] LABS: Hematocrit 44.2 % (42.0-52.0); Hemoglobin 14.5 g/dL (14.0-18.0); Mean Corpuscular HGB Conc 32.8 g/dl (32-36); Mean Corpuscular Hemoglobin 30.4 pg (26-34); Mean Corpuscular Volume 92.7 fl (80-100); Mean Platelet Volume 11.7 fl (7.4-10.4); Platelet Count Result 202 k/mm3 (150-375); Red Blood Count 4.77 M/mm3 (4.6-6.20); Red Cell Distribution Width 13.6 % (11.5-14.5); White Blood Count 8.8 K/mm3 (4.5-10.0)
[2022-10-28 07:30] LABS: Glucose Point of Care 166 mg/dl (65-105)
[2022-10-28 07:36] LABS: Anion Gap 6 mmol/L (8-16); Blood Urea Nitrogen 23 mg/dL (9-20); Calcium 8.4 mg/dL (8.4-10.2); Carbon Dioxide 28 mmol/L (22-30); Chloride 104 mmol/L (98-107); Estimated CRCL calculation 73 ml/min; Estimated Glomerular Filt Rate > 60; Glucose 169 mg/dL (65-110); Potassium 4.2 mmol/L (3.4-5.0); Sodium 138 mmol/L (137-145)
[2022-10-28] MEDS: PANTOPRAZOLE 40 MG TABLET PO (08:46)
[2022-10-28] MEDS: ASPIRIN 81 MG ENTERIC TABLET PO (08:47)
[2022-10-28] MEDS: FLUoxetine HCL 20 MG CAPSULE 80 MG PO (08:47)
[2022-10-28] MEDS: ROSUVASTATIN 10 MG TABLET PO (08:47)
[2022-10-28] MEDS: lisinopriL 20 MG TABLET PO (08:47)
[2022-10-28] MEDS: MORPHINE SULFATE (*CRX) 60 MG TABCR PO ×2 (09:42→21:04)
[2022-10-28 11:10] LABS: Hemoglobin A1C 7.4 % (<5.7)
[2022-10-28 11:19] LABS: Cholesterol 189 mg/dL (0-200); HDL Direct 47 mg/dL; Triglycerides 260 mg/dL (<150)
[2022-10-28 11:33] LABS: LDL Cholesterol Direct 74 mg/dL
[2022-10-28 11:39] LABS: Glucose Point of Care 211 mg/dl (65-105)
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
[2022-10-28] MEDS: INSULIN ASPART (*BKC) 100 UNITS/ML SUB-Q (12:11)
[2022-10-28 16:28] LABS: Glucose Point of Care 179 mg/dl (65-105)
--- NOTE | 2022-10-28 16:52 | PM.IMPN ---
Progress Note: A&P Assessment and Plan (1) Acute cerebrovascular accident: Code(s): I63.9 - Cerebral infarction, unspecified Status: Acute Assessment and Plan: The patient presented to the emergency department via EMS from home with concerns for possible stroke due to difficulties with word finding and reported left arm weakness according to his . Brain CT showed probable areas of acute infarction left frontoparietal region and subsequent CTA of the neck showed near occlusion of the right carotid artery. ED physician discussed case with the stroke team at [facility] (Dr. Dorado) and they indicate that he is a candidate for nonemergent intervention. he has been accepted for transfer and is awaiting bed availability brain MRI completed today shows scattered acute infarcts involving the bilateral frontal, parietal, and occipital lobes and left temporal lobe with subacute infarcts of the right frontal lobe and left parietal occipital lobes. Attempted to call up from MRI results to transfer center, not able to be reached. Awaiting return call. Appreciate Neurology consultation continue aspirin continue rosuvastatin will await further recommendations from Neuro team U will begin PT/OT/ ST while awaiting transfer (2) Right carotid artery occlusion: Code(s): I65.21 - Occlusion and stenosis of right carotid artery Status: Acute Assessment and Plan: see plan as above (3) Hypoglycemia: Code(s): E16.2 - Hypoglycemia, unspecified Status: Acute Assessment and Plan: patient's reports several episodes or patient becomes clammy, confused, and sweaty patient has not been compliant with monitoring glucose at home no episodes of hypoglycemia this admission continue with Accu-Cheks ACHS metformin and home insulin on hold at this time (4) Insulin dependent type 2 diabetes mellitus: Code(s): E11.9 - Type 2 diabetes mellitus without complications; Z79.4 - shelter (current) use of insulin Status: Acute Assessment and Plan: see plan as above A1c is 7.4 (5) Renal insufficiency: Code(s): N28.9 - Disorder of kidney and ureter, unspecified Status: Acute Assessment and Plan: renal function appears consistent with baseline (6) Abnormal chest x-ray: Code(s): R93.89 - Abnormal findings on diagnostic imaging of other specified body structures Status: Acute Assessment and Plan: Chest x-ray is once again abnormal, showing patchy bilateral airspace opacities which could be atelectasis versus pneumonia. continue incentive spirometry no signs/ symptoms to suggest underlying infectious process no leukocytosis. patient afebrile Subjective Date/time seen: 10/28/22 16:52 Interval history: date of service: 10/28/2022 Davie Flores is a 57-year-old male with a history of CAD, hepatitis-C, hypertension, hyperlipidemia, type 2 diabetes mellitus, peripheral vascular disease, above knee amputation of left lower extremity secondary to trauma and several other medical problems who is seen in follow-up for acute CVA. Patient he is feeling today back to his usual state of health. He denies speech changes. Denies dysphagia. Tolerating his diet. No visual disturbances, denies dizziness, lightheadedness, or weakness. Denies abdominal pain, nausea, vomiting, shortness of breath, cough, or chest pain. Review of Systems Review of Systems: All systems reviewed & are unremarkable except as noted in HPI and below Exam Narrative: General: Well-nourished, well-appearing 57-year-old male, sitting up in bed, comfortable, NARD Neuro: awake, alert and oriented x4, speech clear, CN II-XII intact, strength 5/5 throughout, sensation intact, no pronator drift, bilateral steam meter reader strength equal, able to perform rapid alternating movements, able to perform finger to nose, gait normal HEENMT: normocephalic
[2022-10-29] VITALS (11 sets, daily range): BP systolic 153–174; BP diastolic 69–75; PULSE 49–72; RESP 20–21; TEMP 35.3–36.3; O2SAT 100
--- NOTE | 2022-10-29 | ECHO_ITS ---
Patient Info Name: Calvin Flores Age: 57 years : 1965 Gender: Male Ht: 76 in Wt: 192 lbs BSA: 2.16 m2 HR: 63 bpm BP: 173 / 72 mmHg Heart Rhythm: Sinus Rhythm Technical Quality: Poor Exam Date: 10/29/2022 2:22 PM Exam Location: [facility] Patient Status: Inpatient Admit Date: 10/27/2022 Staff Ordering Physician: Carolyn Harden PA-C Customer Resource Specialist: Chanell Daugherty RDCS Attending Provider: Carolyn Harden PA-C Referring Physician: Fina AKERS; Exam Type: CA echo dop bubble study w con Study Info Indications - EMBOLIC STROKE OF UNKNOWN SOURCE Complete two-dimentional, color flow and Doppler transthoracic echocardiogram is performed with agitated saline and with contrast to opacify the left ventricle and to improve the delineation of the left ventricle endocardial borders. Contrast/Agitated Saline Contrast/Ag. Saline: Agitated Saline Amount: 20.00 ml Administered By: Lauren Kowalski RDCS Existing IV Access: Yes Contrast/Ag. Saline: Definity Amount: 5.00 ml Administered By: Chanell Daugherty RDCS Existing IV Access: Yes Reason for Poor Study: poor echocardiographic windows Summary 1. Left ventricular chamber dimension is normal. 2. Left ventricular systolic function is moderately reduced, estimated at 30-35%. 3. There is mildly increased left ventricular wall thickness. 4. Left atrial chamber dimension is moderately enlarged. 5. There is moderate aortic valve calcification. 6. There is mild aortic valve regurgitation. 7. The mitral valve annulus is moderately calcified. 8. The mitral valve has thickened leaflets. 9. There is mild mitral valve regurgitation. 10. There is mild tricuspid valve regurgitation. 11. There is mild-moderate aortic atherosclerosis. Left Ventricle Left ventricular chamber dimension is normal. Left ventricular systolic function is moderately reduced, estimated at 30-35%. There is mildly increased left ventricular wall thickness. Right Ventricle Right ventricular chamber dimension is normal. Left Atria Left atrial chamber dimension is moderately enlarged. Right Atria Right atrial chamber dimension is normal. Atrial Septum Intact interatrial septum visualized by color flow and agitated saline imaging. Aortic Valve The aortic valve is probable trileaflet. There is no aortic valve stenosis. There is mild aortic valve regurgitation. There is moderate aortic valve calcification. Pulmonic Valve The pulmonic valve is not well visualized. Mitral Valve The mitral valve has thickened leaflets. There is mild mitral valve regurgitation. The mitral valve annulus is moderately calcified. Tricuspid Valve There is mild tricuspid valve regurgitation. Pericardium/Pleural There is no pericardial effusion. Aorta The aortic root size at the sinus of Valsalva is normal. There is mild-moderate aortic atherosclerosis. Left Ventricular Outflow Tract Name Value Normal LVOT 2D LVOT Diameter 2.0 cm LVOT Doppler LVOT Peak Gradient
[2022-10-29 00:41] LABS: Glucose Point of Care 249 mg/dl (65-105)
[2022-10-29 06:14] LABS: Anion Gap 5 mmol/L (8-16); Blood Urea Nitrogen 20 mg/dL (9-20); Calcium 8.7 mg/dL (8.4-10.2); Carbon Dioxide 30 mmol/L (22-30); Chloride 100 mmol/L (98-107); Estimated CRCL calculation 73 ml/min; Estimated Glomerular Filt Rate > 60; Glucose 214 mg/dL (65-110); Potassium 4.4 mmol/L (3.4-5.0); Sodium 135 mmol/L (137-145)
[2022-10-29 06:15] LABS: Hematocrit 45.7 % (42.0-52.0); Hemoglobin 15.1 g/dL (14.0-18.0); Mean Corpuscular Hemoglobin 30.4 pg (26-34); Mean Corpuscular Volume 92.1 fl (80-100); Platelet Count Result 200 k/mm3 (150-375); Red Blood Count 4.96 M/mm3 (4.6-6.20); Red Cell Distribution Width 13.4 % (11.5-14.5); White Blood Count 10.2 K/mm3 (4.5-10.0)
[2022-10-29 07:52] LABS: Glucose Point of Care 211 mg/dl (65-105)
[2022-10-29] MEDS: METOPROLOL TARTRATE 50 MG TAB PO ×2 (08:23→21:10)
[2022-10-29] MEDS: MORPHINE SULFATE (*CRX) 60 MG TABCR PO ×2 (08:23→21:15)
[2022-10-29] MEDS: ROSUVASTATIN 10 MG TABLET PO (08:23)
[2022-10-29] MEDS: lisinopriL 20 MG TABLET PO (08:23)
[2022-10-29] MEDS: ASPIRIN 81 MG ENTERIC TABLET PO (08:23)
[2022-10-29] MEDS: INSULIN ASPART (*BKC) 100 UNITS/ML SUB-Q ×3 (08:24→17:37)
[2022-10-29] MEDS: FLUoxetine HCL 20 MG CAPSULE 80 MG PO (08:24)
[2022-10-29] MEDS: PANTOPRAZOLE 40 MG TABLET PO (08:24)
[2022-10-29 11:46] LABS: Glucose Point of Care 254 mg/dl (65-105)
--- NOTE | 2022-10-29 13:30 | P.PNIM_ITS ---
Progress Note: A&P Assessment and Plan (1) Acute cerebrovascular accident: Code(s): I63.9 - Cerebral infarction, unspecified Status: Acute Assessment and Plan: The patient presented to the emergency department via EMS from home with concerns for possible stroke due to difficulties with word finding and reported left arm weakness according to his . * Head CT showed probable areas of acute infarction left frontoparietal region and subsequent CTA of the neck showed near occlusion of the right carotid artery with probable acute infarct of the left frontoparietal region * ED physician discussed case with the stroke team at [facility] (Dr. Dorado) and they indicate that he is a candidate for nonemergent intervention. he has been accepted for transfer and is awaiting bed availability * brain MRI showed scattered acute infarcts involving the bilateral frontal, parietal, and occipital lobes and left temporal lobe with subacute infarcts of the right frontal lobe and left parietal occipital lobes. * Given distribution, there is concern for cardioembolic source. Will proceed with echocardiogram with bubble study * Discussed case with [facility] Neurology today. Will await results of echocardiogram and call tomorrow with update * Appreciate Neurology consultation * continue aspirin * continue rosuvastatin * PT/OT/ ST while awaiting transfer (2) Right carotid artery occlusion: Code(s): I65.21 - Occlusion and stenosis of right carotid artery Status: Acute Assessment and Plan: see plan as above (3) Hypoglycemia: Code(s): E16.2 - Hypoglycemia, unspecified Status: Acute Assessment and Plan: patient's reports several episodes or patient becomes clammy, confused, and sweaty * patient has not been compliant with monitoring glucose at home * no episodes of hypoglycemia this admission * continue with Accu-Cheks ACHS * metformin and home insulin on hold at this time * Blood sugars slightly elevated today in the 200-250 systolic. Will begin moderate dose sliding scale insulin * Consider restarting home insulin at decreased dose. * Long discussion with patient regarding glucose management. Patient does have a CGM but has not used this before. Will attempt inpatient early childhood educator aide consultation (4) Insulin dependent type 2 diabetes mellitus: Code(s): E11.9 - Type 2 diabetes mellitus without complications; Z79.4 - terminal operator (current) use of insulin Status: Acute Assessment and Plan: see plan as above * A1c is 7.4 (5) Renal insufficiency: Code(s): N28.9 - Disorder of kidney and ureter, unspecified Status: Acute Assessment and Plan: renal function appears consistent with baseline (6) Abnormal chest x-ray: Code(s): R93.89 - Abnormal findings on diagnostic imaging of other specified body structures Status: Acute Assessment and Plan: Chest x-ray is once again abnormal, showing patchy bilateral airspace opacities which could be atelectasis versus pneumonia. * continue incentive spirometry * no signs/ symptoms to suggest underlying infectious process * no leukocytosis. patient afebrile Plan 75 minutes spent on this encounter Time Spent With Patient Time with patient: Greater than 35 minutes Subjective Date/time seen: 10/29/22 13:30 Interval history: date of service: 10/29/2022 Davie Flores is a 57-year-old male with a history of CAD, hepatitis-C, hypertension, hyperlipidemia, type 2 diabetes elyssa
--- NOTE | 2022-10-29 13:30 | PM.IMPN ---
Progress Note: A&P Assessment and Plan (1) Acute cerebrovascular accident: Code(s): I63.9 - Cerebral infarction, unspecified Status: Acute Assessment and Plan: The patient presented to the emergency department via EMS from home with concerns for possible stroke due to difficulties with word finding and reported left arm weakness according to his . Head CT showed probable areas of acute infarction left frontoparietal region and subsequent CTA of the neck showed near occlusion of the right carotid artery with probable acute infarct of the left frontoparietal region ED physician discussed case with the stroke team at [facility] (Dr. Dorado) and they indicate that he is a candidate for nonemergent intervention. he has been accepted for transfer and is awaiting bed availability brain MRI showed scattered acute infarcts involving the bilateral frontal, parietal, and occipital lobes and left temporal lobe with subacute infarcts of the right frontal lobe and left parietal occipital lobes. Given distribution, there is concern for cardioembolic source. Will proceed with echocardiogram with bubble study Discussed case with [facility] Neurology today. Will await results of echocardiogram and call tomorrow with update Appreciate Neurology consultation continue aspirin continue rosuvastatin PT/OT/ ST while awaiting transfer (2) Right carotid artery occlusion: Code(s): I65.21 - Occlusion and stenosis of right carotid artery Status: Acute Assessment and Plan: see plan as above (3) Hypoglycemia: Code(s): E16.2 - Hypoglycemia, unspecified Status: Acute Assessment and Plan: patient's reports several episodes or patient becomes clammy, confused, and sweaty patient has not been compliant with monitoring glucose at home no episodes of hypoglycemia this admission continue with Accu-Cheks ACHS metformin and home insulin on hold at this time Blood sugars slightly elevated today in the 200-250 systolic. Will begin moderate dose sliding scale insulin Consider restarting home insulin at decreased dose. Long discussion with patient regarding glucose management. Patient does have a CGM but has not used this before. Will attempt inpatient outreach educator consultation (4) Insulin dependent type 2 diabetes mellitus: Code(s): E11.9 - Type 2 diabetes mellitus without complications; Z79.4 - alf (current) use of insulin Status: Acute Assessment and Plan: see plan as above A1c is 7.4 (5) Renal insufficiency: Code(s): N28.9 - Disorder of kidney and ureter, unspecified Status: Acute Assessment and Plan: renal function appears consistent with baseline (6) Abnormal chest x-ray: Code(s): R93.89 - Abnormal findings on diagnostic imaging of other specified body structures Status: Acute Assessment and Plan: Chest x-ray is once again abnormal, showing patchy bilateral airspace opacities which could be atelectasis versus pneumonia. continue incentive spirometry no signs/ symptoms to suggest underlying infectious process no leukocytosis. 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 He is feeling very well today. He feels that he is nearly back to his baseline. His slurred speech has resolved. He denies dysphagia. No issues with word finding. Eating well. Denies weakness. Denies headache. Denies nausea, vomiting, fever, chills. He has no add
--- NOTE | 2022-10-29 13:56 | PCSTNOTE ---
Please refer to the Communication Evaluation and the Bedside Swallow Evaluation in the EMR. Please note, silent aspiration cannot be ruled out at bedside.
[2022-10-29] MEDS: PERFLUTREN LIPID MICROSPHERES 1.5 ML VIAL DILUTED TO 10 ML TOTAL VOLUME IV PUSH (15:10)
[2022-10-29 16:27] LABS: Glucose Point of Care 207 mg/dl (65-105)
--- NOTE | 2022-10-29 19:13 | PC.NURSE ---
Pt continues to wait for a bed at [facility]. Pt has had no complaints this shift and is compliant with care. Pt participated and contributed in plan of care. Pt has been monitored for any change in status.
[2022-10-29 20:38] LABS: Glucose Point of Care 224 mg/dl (65-105)
[2022-10-30] VITALS (11 sets, daily range): BP systolic 149–162; BP diastolic 64–69; PULSE 53–69; RESP 17–20; TEMP 35.7–36.3; O2SAT 98–100; BMI 25.3
[2022-10-30 06:48] LABS: Hematocrit 44.6 % (42.0-52.0); Hemoglobin 14.8 g/dL (14.0-18.0); Mean Corpuscular HGB Conc 33.2 g/dl (32-36); Mean Corpuscular Hemoglobin 30.7 pg (26-34); Mean Corpuscular Volume 92.5 fl (80-100); Mean Platelet Volume 11.7 fl (7.4-10.4); Platelet Count Result 191 k/mm3 (150-375); Red Blood Count 4.82 M/mm3 (4.6-6.20); Red Cell Distribution Width 13.3 % (11.5-14.5); White Blood Count 9.9 K/mm3 (4.5-10.0)
[2022-10-30 06:59] LABS: Anion Gap 6 mmol/L (8-16); Blood Urea Nitrogen 20 mg/dL (9-20); Calcium 8.4 mg/dL (8.4-10.2); Carbon Dioxide 26 mmol/L (22-30); Chloride 102 mmol/L (98-107); Estimated CRCL calculation 86 ml/min; Estimated Glomerular Filt Rate > 60; Glucose 203 mg/dL (65-110); Potassium 4.3 mmol/L (3.4-5.0); Sodium 134 mmol/L (137-145)
[2022-10-30 08:13] LABS: Glucose Point of Care 197 mg/dl (65-105)
[2022-10-30] MEDS: FLUoxetine HCL 20 MG CAPSULE 80 MG PO (08:30)
[2022-10-30] MEDS: lisinopriL 20 MG TABLET PO (08:30)
[2022-10-30] MEDS: PANTOPRAZOLE 40 MG TABLET PO (08:30)
[2022-10-30] MEDS: METOPROLOL TARTRATE 50 MG TAB PO ×2 (08:30→21:56)
[2022-10-30] MEDS: ROSUVASTATIN 10 MG TABLET PO (08:31)
[2022-10-30] MEDS: ASPIRIN 81 MG ENTERIC TABLET PO (08:31)
[2022-10-30] MEDS: MORPHINE SULFATE (*CRX) 60 MG TABCR PO ×2 (08:35→21:56)
[2022-10-30 12:01] LABS: Glucose Point of Care 230 mg/dl (65-105)
[2022-10-30] MEDS: INSULIN ASPART (*BKC) 100 UNITS/ML SUB-Q ×2 (12:26→17:22)
--- NOTE | 2022-10-30 13:13 | P.PNIM_ITS ---
Progress Note: A&P Assessment and Plan (1) Acute cerebrovascular accident: Code(s): I63.9 - Cerebral infarction, unspecified Status: Acute Assessment and Plan: The patient presented to the emergency department via EMS from home with concerns for possible stroke due to difficulties with word finding and reported left arm weakness according to his . * Head CT showed probable areas of acute infarction left frontoparietal region and subsequent CTA of the neck showed near occlusion of the right carotid artery with probable acute infarct of the left frontoparietal region * ED physician discussed case with the stroke team at [facility] (Dr. Dorado) and they indicate that he is a candidate for nonemergent intervention. he has been accepted for transfer and is awaiting bed availability * brain MRI showed scattered acute infarcts involving the bilateral frontal, parietal, and occipital lobes and left temporal lobe with subacute infarcts of the right frontal lobe and left parietal occipital lobes. * Given distribution, there is concern for cardioembolic source. * Echo with bubble study obtained which showed intact septum. Discussed results with [facility] Neurology who recommend proceeding with NOEMY to rule out PFO/thrombus. * Consult to cardiology for NOEMY. Appreciate recommendations * Continue aspirin and statin * PT/OT/ST while awaiting transfer (2) Right carotid artery occlusion: Code(s): I65.21 - Occlusion and stenosis of right carotid artery Status: Acute Assessment and Plan: see plan as above (3) Hypoglycemia: Code(s): E16.2 - Hypoglycemia, unspecified Status: Acute Assessment and Plan: patient's reports several episodes or patient becomes clammy, confused, and sweaty * patient has not been compliant with monitoring glucose at home * no episodes of hypoglycemia this admission * continue with Accu-Cheks ACHS * metformin and home insulin on hold at this time * Blood sugars slightly elevated today in the 200-250 systolic. Continue moderate dose sliding scale insulin * Will add back home insulin at reduced rate and monitor glucose trends * Long discussion with patient regarding glucose management. Patient does have a CGM but has not used this before. Will attempt inpatient nurses educator consultation (4) Insulin dependent type 2 diabetes mellitus: Code(s): E11.9 - Type 2 diabetes mellitus without complications; Z79.4 - retirement (current) use of insulin Status: Acute Assessment and Plan: see plan as above * A1c is 7.4 (5) Renal insufficiency: Code(s): N28.9 - Disorder of kidney and ureter, unspecified Status: Acute Assessment and Plan: renal function appears consistent with baseline (6) Abnormal chest x-ray: Code(s): R93.89 - Abnormal findings on diagnostic imaging of other specified body structures Status: Acute Assessment and Plan: Chest x-ray is once again abnormal, showing patchy bilateral airspace opacities which could be atelectasis versus pneumonia. * continue incentive spirometry * no signs/ symptoms to suggest underlying infectious process * no leukocytosis. patient afebrile (7) HFrEF (heart failure with reduced ejection fraction): Code(s): I50.20 - Unspecified systolic (congestive) heart failure Status: Acute Assessment and Plan: Echo completed due to CVA which revealed moderately reduced EF of 30-35% * no prior echo available for review and patient does not carry diagnosis of heart failure
--- NOTE | 2022-10-30 13:13 | PM.IMPN ---
Progress Note: A&P Assessment and Plan (1) Acute cerebrovascular accident: Code(s): I63.9 - Cerebral infarction, unspecified Status: Acute Assessment and Plan: The patient presented to the emergency department via EMS from home with concerns for possible stroke due to difficulties with word finding and reported left arm weakness according to his . Head CT showed probable areas of acute infarction left frontoparietal region and subsequent CTA of the neck showed near occlusion of the right carotid artery with probable acute infarct of the left frontoparietal region ED physician discussed case with the stroke team at [facility] (Dr. Dorado) and they indicate that he is a candidate for nonemergent intervention. he has been accepted for transfer and is awaiting bed availability brain MRI showed scattered acute infarcts involving the bilateral frontal, parietal, and occipital lobes and left temporal lobe with subacute infarcts of the right frontal lobe and left parietal occipital lobes. Given distribution, there is concern for cardioembolic source. Echo with bubble study obtained which showed intact septum. Discussed results with [facility] Neurology who recommend proceeding with NOEMY to rule out PFO/thrombus. Consult to cardiology for NOEMY. Appreciate recommendations Continue aspirin and statin PT/OT/ST while awaiting transfer (2) Right carotid artery occlusion: Code(s): I65.21 - Occlusion and stenosis of right carotid artery Status: Acute Assessment and Plan: see plan as above (3) Hypoglycemia: Code(s): E16.2 - Hypoglycemia, unspecified Status: Acute Assessment and Plan: patient's reports several episodes or patient becomes clammy, confused, and sweaty patient has not been compliant with monitoring glucose at home no episodes of hypoglycemia this admission continue with Accu-Cheks ACHS metformin and home insulin on hold at this time Blood sugars slightly elevated today in the 200-250 systolic. Continue moderate dose sliding scale insulin Will add back home insulin at reduced rate and monitor glucose trends Long discussion with patient regarding glucose management. Patient does have a CGM but has not used this before. Will attempt inpatient ems educator consultation (4) Insulin dependent type 2 diabetes mellitus: Code(s): E11.9 - Type 2 diabetes mellitus without complications; Z79.4 - terminal operator (current) use of insulin Status: Acute Assessment and Plan: see plan as above A1c is 7.4 (5) Renal insufficiency: Code(s): N28.9 - Disorder of kidney and ureter, unspecified Status: Acute Assessment and Plan: renal function appears consistent with baseline (6) Abnormal chest x-ray: Code(s): R93.89 - Abnormal findings on diagnostic imaging of other specified body structures Status: Acute Assessment and Plan: Chest x-ray is once again abnormal, showing patchy bilateral airspace opacities which could be atelectasis versus pneumonia. continue incentive spirometry no signs/ symptoms to suggest underlying infectious process no leukocytosis. patient afebrile (7) HFrEF (heart failure with reduced ejection fraction): Code(s): I50.20 - Unspecified systolic (congestive) heart failure Status: Acute Assessment and Plan: Echo completed due to CVA which revealed moderately reduced EF of 30-35% no prior echo available for review and patient does not carry diagnosis of heart failure patient is asymptomatic appears clinically compensated at this time cardiology will be evaluating the patient, appreciate input regarding this. Likely will need to follow-up with cardiology as an outpatient following discharge Plan 50 minutes spent on this encounter Time Spent With Patient Time with patient: Greater than 35 minutes Subjective Date/time seen: 10/30/22 13:13 Interval histo
[2022-10-30 16:56] LABS: Glucose Point of Care 252 mg/dl (65-105)
--- NOTE | 2022-10-30 18:43 | PM.CNCAR ---
Assessment and Plan Assessment and plan (1) Acute CVA (cerebrovascular accident): Code(s): I63.9 - Cerebral infarction, unspecified Status: Acute Assessment and Plan: Patient had acute stroke, with resolution of symptoms but his MRI shows bilateral strokes. Of concern for cardioembolic events. He also has a subtotal occlusion of the right carotid artery. Patient is under the impression that is common to have small strokes, and did not appear concerned. I tried to impress on him that it is not common and not good to have small strokes and we will work heart prevent any further loss of cerebral function. continue aspirin, increase Rosuvastatin to high dose, 40 mg daily. NPO for NOEMY tomorrow to rule out cardiac source of emboli, aortic atherosclerosis reviewed procedure with the patient (2) Right-sided carotid artery disease: Code(s): I77.9 - Disorder of arteries and arterioles, unspecified Status: Acute Assessment and Plan: Subtotal right carotid occlusion. Continue aspirin, increased with service statin to high dose, 40 mg daily. Waiting for a bed at [facility] to address further. (3) CAD (coronary artery disease) of artery bypass graft: Qualifiers: [place] vs. transplanted heart: [facility] heart Associated angina: without angina Qualified Code(s): I25.810 - Atherosclerosis of coronary artery bypass graft(s) without angina pectoris Code(s): I25.810 - Atherosclerosis of coronary artery bypass graft(s) without angina pectoris Status: Chronic Assessment and Plan: History of CAD, remote CABG Denies any angina or heart failure symptoms. Previously followed by Dr. Mccabe , but lost to follow-up. Recommend he follow-up Continue aspirin, increase rosuvastatin to high dose, 40 mg daily. (4) Cardiomyopathy: Code(s): I42.9 - Cardiomyopathy, unspecified Status: Acute Assessment and Plan: Cardiomyopathy EF of 30-35%, no recent echos for comparison. Reviewed with patient, can put him at risk of heart failure and premature . Recommended follow-up with Dr. Mccabe History of Present Illness History of Present Illness Consult date/time: 10/30/22 18:43 Reason For Visit: acute cva Narrative: Calvin Flores is a 57 y.o. male whom I was asked to see at the request of GEORGE Mayers, for my advice and opinion regarding his CVA and also his cardiomyopathy, in consultation. the patient has a histry of CAD and CABG( previously followed by Dr. Mccabe), hypertension, hyperlipidemia, type 2 diabetes, peripheral vascular disease, hepatitis-C. The patient was admitted on 10/27/2022 with trouble talking and found to have bilateral strokes. His neurologic sx resolved. He has a subtotal occlusion of the right carotid artery. He is waiting for a Neurology bed at [facility]. His echocardiogram showed an EF of 30-35% but no shunt. His MRI showed bilateral cerebral deficits. There is concern that he may be showering emboli and Ms. Ye and [facility] has requested a NOEMY for evaluation. THe patient denies any angina or heart failure. He has not followed up with Dr. 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 Review of Systems Constitutional: Constitutional: Denies fever(s) Eyes: Eyes: Reports no additional eye complaints ENT: Comments: Has dentures Cardiovascular: Cardiovascular: Denies chest pain, Denies pedal edema, Denies lightheadedness and Denies dyspnea Respiratory: Respiratory: Denies chest congestion and Denies dyspnea Gastrointestinal: Gastrointestinal: Denies abdominal pain and Denies hematochezia Comments: no trouble swallowing, no history of esophageal stricture Genitourinary: Genitourinary: Reports no additional male genitourinary complaints Musculoskeletal: Musculoskeletal: Reports no additional musculoskeletal complaints Comments: history of l
[2022-10-30 20:30] LABS: Glucose Point of Care 301 mg/dl (65-105)
[2022-10-30] MEDS: INSULIN HUMAN ISOPHAN/REGULAR 70/30 (*BKC) 100 UNITS/ML 10 UNITS SUB-Q (22:01)
[2022-10-31] VITALS (16 sets, daily range): BP systolic 140–167; BP diastolic 54–67; PULSE 50–72; RESP 12–18; TEMP 35.6–36.1; O2SAT 98–100
--- NOTE | 2022-10-31 06:46 | PC.NURSE ---
States constipated for several days will notify next shift nurse to follow up.
[2022-10-31 07:13] LABS: Hematocrit 43.1 % (42.0-52.0); Hemoglobin 14.4 g/dL (14.0-18.0); Mean Corpuscular HGB Conc 33.4 g/dl (32-36); Mean Corpuscular Hemoglobin 30.4 pg (26-34); Mean Corpuscular Volume 90.9 fl (80-100); Mean Platelet Volume 11.8 fl (7.4-10.4); Platelet Count Result 207 k/mm3 (150-375); Red Blood Count 4.74 M/mm3 (4.6-6.20); Red Cell Distribution Width 13.2 % (11.5-14.5); White Blood Count 9.3 K/mm3 (4.5-10.0)
[2022-10-31 07:23] LABS: Anion Gap 3 mmol/L (8-16); Blood Urea Nitrogen 21 mg/dL (9-20); Calcium 8.4 mg/dL (8.4-10.2); Carbon Dioxide 32 mmol/L (22-30); Chloride 99 mmol/L (98-107); Estimated CRCL calculation 67 ml/min; Estimated Glomerular Filt Rate 57; Glucose 237 mg/dL (65-110); Potassium 4.8 mmol/L (3.4-5.0); Sodium 134 mmol/L (137-145)
[2022-10-31 07:36] LABS: Glucose Point of Care 221 mg/dl (65-105)
[2022-10-31] MEDS: METOPROLOL TARTRATE 50 MG TAB PO ×2 (08:50→21:28)
[2022-10-31] MEDS: ASPIRIN 81 MG ENTERIC TABLET PO (08:50)
[2022-10-31] MEDS: lisinopriL 20 MG TABLET PO (08:50)
[2022-10-31] MEDS: FLUoxetine HCL 20 MG CAPSULE 80 MG PO (08:50)
[2022-10-31] MEDS: MORPHINE SULFATE (*CRX) 60 MG TABCR PO ×2 (08:50→21:28)
[2022-10-31] MEDS: INSULIN ASPART (*BKC) 100 UNITS/ML SUB-Q ×2 (08:51→13:08)
[2022-10-31] MEDS: PANTOPRAZOLE 40 MG TABLET PO (08:51)
[2022-10-31] MEDS: INSULIN HUMAN ISOPHAN/REGULAR 70/30 (*BKC) 100 UNITS/ML 10 UNITS SUB-Q (08:52)
[2022-10-31] MEDS: ROSUVASTATIN 10 MG TABLET 40 MG PO (09:32)
[2022-10-31 11:32] LABS: Glucose Point of Care 264 mg/dl (65-105)
--- NOTE | 2022-10-31 12:00 | WPDHPUPDATE1 ---
History and Physical Update Update Date/Time: 10/31/22 12:00 History and Physical has been reviewed, including an updated exam of the patient. There are NO changes in the patient's condition. Risks, benefits, and alternatives have been discussed and questions answered. Patient agrees to proceed with procedure.
--- NOTE | 2022-10-31 12:00 | WPDMODSED ---
Moderate Sedation Note-Pt Data Patient Data Diagnosis: Bilateral strokes,carotid dz Present Complaint: Biilateral strokes, transient aphasia Procedure to be performed/Plan: Conscious sedation Transesophageal echo Allergies Allergy/AdvReac Type Severity Reaction Status Date / Time No Known Allergies Allergy Verified 10/12/22 23:35 Home Medications Medication Instructions Recorded Confirmed Type aspirin 81 mg tablet,delayed 81 mg PO DAILY 09/20/19 10/27/22 History release (Adult Low Dose Aspirin) nitroglycerin 0.4 mg sublingual 0.4 mg sublingual Q5M PRN chest 09/20/19 10/27/22 History tablet (Nitrostat) pain cyclobenzaprine 10 mg tablet 10 mg PO TID PRN Muscle Spasm 10/23/20 10/27/22 History metoprolol tartrate 50 mg tablet 50 mg PO BID 10/23/20 10/27/22 History lisinopril 20 mg tablet 20 mg PO DAILY 05/17/22 10/27/22 History morphine 60 mg tablet,extended 60 mg PO Q12H 05/17/22 10/27/22 History release pantoprazole 40 mg tablet,delayed 40 mg PO DAILY 05/17/22 10/27/22 History release rosuvastatin 10 mg tablet 10 mg PO DAILY 05/17/22 10/27/22 History glucagon HCl 1 mg solution for 1 mg subcut Q20M PRN hypoglycemia 05/19/22 10/27/22 Rx injection (Glucagon (HCl) #1 ea Emergency Kit) fluoxetine 40 mg capsule 80 mg PO DAILY 10/27/22 10/27/22 History insulin human U-100 NPH-regulr 50 unit subcut DAILY 10/27/22 10/27/22 History 70-30 mix 100 unit/mL subcutaneous susp (Humulin 70/30 U-100 Insulin) insulin human U-100 NPH-regulr 40 unit subcut HS 10/27/22 10/27/22 History 70-30 mix 100 unit/mL subcutaneous susp (Novolin 70/30 U-100 Insulin) metformin 500 mg tablet,extended 1,000 mg PO QPM 10/27/22 10/27/22 History release 24 hr Current Medications: Active Medications Acetaminophen (Acetaminophen 325 Mg Tablet) 650 mg PO Q6H PRN PRN Reason: Mild Pain (1-3) or Fever Aspirin (Aspirin 81 Mg Enteric Tablet) 81 mg PO DAILY TJ Last Admin: 10/31/22 08:50 Dose: 81 mg Dextrose (Dextrose 50% 25 Gm/50 Ml Syringe) 12.5 gm IV PUSH PRN PRN; Protocol PRN Reason: Hypoglycemia Fluoxetine HCl (Fluoxetine Hcl 20 Mg Capsule) 80 mg PO DAILY [facility] Last Admin: 10/31/22 08:50 Dose: 80 mg Glucagon (Glucagon For Inj 1 Mg Vial) 1 mg IM PRN PRN; Protocol PRN Reason: Hypoglycemia Glucose (Glucose Oral Gel 15 Gm Of Glucse In 37.5 Gm Tube) 15 gm PO PRN PRN; Protocol PRN Reason: Hypoglycemia Dextrose (Dextrose 5% 1,000 Ml) 1,000 mls @ 100 mls/hr IVPB PRN PRN; Protocol PRN Reason: Hypoglycemia Insulin Aspart (Insulin Aspart (*Bkc) 100 Units/Ml) 3 - 6 units SUB-Q TIDWM [facility]; Protocol Last Admin: 10/31/22 08:51 Dose: 3 units Insulin Human Isoph/Insulin Regular (Insulin Human Isophan/Regular 70/30 (*Bkc) 100 Units/Ml) 12 units SUB-Q [facility] Insulin Human Isoph/Insulin Regular (Insulin Human Isophan/Regular 70/30 (*Bkc) 100 Units/Ml) 15 units SUB-Q DAILY [facility] Lisinopril (Lisinopril 20 Mg Tablet) 20 mg PO DAILY [facility] Last Admin: 10/31/22 08:50 Dose: 20 mg Metoprolol Tartrate (Metoprolol Tartrate 50 Mg Tab) 50 mg PO Q12HR [facility] Last Admin: 10/31/22 08:50 Dose: 50 mg Morphine Sulfate (Morphine Sulfate (*Crx) 60 Mg Tabcr) 60 mg PO Q12HR [facility] Last Admin: 10/31/22 08:50 Dose: 60 mg Ondansetron HCl (Ondansetron Inj 4 Mg/2 Ml Vial) 4 mg IV PUSH Q4H PRN PRN Reason: Nausea Pantoprazole Sodium (Pantoprazole 40 Mg Tablet) 40 mg PO DAILY [facility] Last Admin: 10/31/22 08:51 Dose: 40 mg Perflutren Lipid Microsphere (Perflutren Lipid Microspheres 1.5 Ml Vial Diluted To 10 Ml Total Volume) 0 ml IV PUSH ONCE PRN; Protocol PRN Reason: adequate visualization Stop: 10/31/22 13:28 Rosuvastatin Calcium (Rosuvastatin 10 Mg Tablet) 40 mg PO DAILY [facility] Last Admin: 10/31/22 09:32 Dose: 40 mg Sedation/Anesthesia: No previous sedation/anesthesia problems (including family history). [facility] Past Medical History Medical History Anxiety Arthritis Margarita
--- NOTE | 2022-10-31 12:23 | P.PCNTEE_ITS ---
NOEMY TransEsophageal Echocardiogram Date of procedure: 10/31/22 Procedure Type: Conscious sedation Transesophageal echo Diagnosis: Bilateral strokes Cardiomyopathy Indications: 57-year-old male admitted with transient aphasia, found to have bilateral recent and acute. Has right carotid disease. Being evaluated for cardiac source of emboli. Image Quality: Good Findings: Conscious sedation: Assessment: The patient has no history of anesthesia problems. The patient's oropharynx is clear. The patient was deemed to be a good candidate for conscious sedation. The patient had continuous hemodynamic and oximetric monitoring during the procedure. Start time: 1208 p.m. Completion time: 12:21 p.m. Total conscious sedation time: 13 minutes Medications Used: Versed 2 mg, fentanyl 100 mcg IV push Trained observer: Ashleigh Amezcua RN Outcome: The patient tolerated the procedure well with no complications. Procedure: After informed consent the patient had viscous lidocaine gargle and Hurricaine spray the hypopharynx. The patient had conscious sedation as described above. The transesophageal echo probe was introduced in the esophagus without difficulty. Imaging was obtained in multiplane views. Agitated saline was injected to evaluate for intracardiac shunting. The patient tolerated the procedure well with no complications. Findings: The left atrium was moderately enlarged. There is no thrombus present in the left atrium or left atrial appendage , but spontaneous contrast was seen in the left atrium andatrial appendage. The atrial septum appeared intact. Mitral valve appeared thickened, with no stenosis or prolapse. The left ventricle had had normal size with mild LVH, and with moderate to severe hypokinesis of all segments. The ejection fraction is estimated to be: 35-40%. The aortic root was normal, and valve mildly calcified. The ascending aorta Was normal. The aortic arch had [id number] atherosclerosis, and descending thoracic aorta had severe atherosclerosis. However, there were no mobile thrombi or mobile plaques seen. The right atrium, tricuspid valve, right ventricle, pulmonic valve and pulmonic artery were all normal. There is no pericardial effusion. When agitated saline was injected intravenously there was no evidence of intracardiac shunting During normal respiration, cough and abdominal compression.. Colorflow Doppler Findings: Mild mitral regurgitation and aortic insufficiency were seen. The atrial septum appeared intact by color-flow Doppler. Conclusions: Moderate to severe global hypokinesis, EF 35-40%. No thrombus present in the left atrium or left atrial appendage, although spontaneous contrast is present. Mild to moderate atherosclerosis of the aortic arch and severe atherosclerosis of the descending thoracic aorta. No associated thrombi noted. No evidence of intracardiac shunting by color flow and bubble study. Moderate left atrial enlargement. Mild mitral and aortic insufficiency Mild aortic valve calcification. Bradycardia, heart rates sometimes down to 40's. Recommendations: Continue ASA and high-dose statin tx. Increase lisinopril for cardiomyopathy. Add spironolactone for cardiomyopathy; need to follow K+ in 2 and 4 weeks. Follow HR; may need metoprolol reduced. Follow up with cardiology/Dr. Mccabe, for tx of cardiomyopathy and CAD.
--- NOTE | 2022-10-31 12:52 | SUR.PHASEII ---
gave report to room nurse. waiting transfer order from dr zuleta then will transfer back to room.
--- NOTE | 2022-10-31 13:10 | P.PNIM_ITS ---
Progress Note: A&P Assessment and Plan (1) Acute cerebrovascular accident: Code(s): I63.9 - Cerebral infarction, unspecified Status: Acute Assessment and Plan: The patient presented to the emergency department via EMS from home with concerns for possible stroke due to difficulties with word finding and reported left arm weakness according to his . * Head CT showed probable areas of acute infarction left frontoparietal region and subsequent CTA of the neck showed near occlusion of the right carotid artery with probable acute infarct of the left frontoparietal region * ED physician discussed case with the stroke team at [facility] (Dr. Dorado) and they indicate that he is a candidate for nonemergent intervention. he has been accepted for transfer and is awaiting bed availability * brain MRI showed scattered acute infarcts involving the bilateral frontal, parietal, and occipital lobes and left temporal lobe with subacute infarcts of the right frontal lobe and left parietal occipital lobes. * Given distribution, there is concern for cardioembolic source. * Echo with bubble study obtained which showed intact septum. Discussed results with [facility] Neurology who recommend proceeding with NOEMY to rule out PFO/thrombus. * NOEMY completed today which showed no thrombus in left atrium or left atrial appendage, no evidence of intracardiac shunt * Continue aspirin and high-intensity statin * PT/OT/ST while awaiting transfer spoke with [facility] transfer center today, still awaiting a bed. (2) Right carotid artery occlusion: Code(s): I65.21 - Occlusion and stenosis of right carotid artery Status: Acute Assessment and Plan: see plan as above (3) Hypoglycemia: Code(s): E16.2 - Hypoglycemia, unspecified Status: Acute Assessment and Plan: patient's reports several episodes or patient becomes clammy, confused, and sweaty * patient has not been compliant with monitoring glucose at home * no episodes of hypoglycemia this admission * continue with Accu-Cheks ACHS * metformin and home insulin held on admission * blood sugars remaining elevated today in the 200-250s. Continue moderate dose sliding scale insulin * 10/30 added back home insulin at reduced rate and monitor glucose trends. Increase insulin today for improved control * long discussion with patient regarding glucose management. Patient does have a CGM but has not used this before. Will attempt inpatient special education paraeducator consultation (4) Insulin dependent type 2 diabetes mellitus: Code(s): E11.9 - Type 2 diabetes mellitus without complications; Z79.4 - intermediate (current) use of insulin Status: Acute Assessment and Plan: see plan as above * A1c is 7.4 (5) Renal insufficiency: Code(s): N28.9 - Disorder of kidney and ureter, unspecified Status: Acute Assessment and Plan: renal function appears consistent with baseline (6) Abnormal chest x-ray: Code(s): R93.89 - Abnormal findings on diagnostic imaging of other specified body structures Status: Acute Assessment and Plan: Chest x-ray is once again abnormal, showing patchy bilateral airspace opacities which could be atelectasis versus pneumonia. * continue incentive spirometry * no signs/ symptoms to suggest underlying infectious process * no leukocytosis. patient afebrile (7) HFrEF (heart failure with reduced ejection fraction): Code(s): I50.20 - Unspecified systolic (congestive) heart failure Status: Acute Assessment
--- NOTE | 2022-10-31 13:10 | PM.IMPN ---
Progress Note: A&P Assessment and Plan (1) Acute cerebrovascular accident: Code(s): I63.9 - Cerebral infarction, unspecified Status: Acute Assessment and Plan: The patient presented to the emergency department via EMS from home with concerns for possible stroke due to difficulties with word finding and reported left arm weakness according to his . Head CT showed probable areas of acute infarction left frontoparietal region and subsequent CTA of the neck showed near occlusion of the right carotid artery with probable acute infarct of the left frontoparietal region ED physician discussed case with the stroke team at [facility] (Dr. Dorado) and they indicate that he is a candidate for nonemergent intervention. he has been accepted for transfer and is awaiting bed availability brain MRI showed scattered acute infarcts involving the bilateral frontal, parietal, and occipital lobes and left temporal lobe with subacute infarcts of the right frontal lobe and left parietal occipital lobes. Given distribution, there is concern for cardioembolic source. Echo with bubble study obtained which showed intact septum. Discussed results with [facility] Neurology who recommend proceeding with NOEMY to rule out PFO/thrombus. NOEMY completed today which showed no thrombus in left atrium or left atrial appendage, no evidence of intracardiac shunt Continue aspirin and high-intensity statin PT/OT/ST while awaiting transfer spoke with [facility] transfer center today, still awaiting a bed. (2) Right carotid artery occlusion: Code(s): I65.21 - Occlusion and stenosis of right carotid artery Status: Acute Assessment and Plan: see plan as above (3) Hypoglycemia: Code(s): E16.2 - Hypoglycemia, unspecified Status: Acute Assessment and Plan: patient's reports several episodes or patient becomes clammy, confused, and sweaty patient has not been compliant with monitoring glucose at home no episodes of hypoglycemia this admission continue with Accu-Cheks ACHS metformin and home insulin held on admission blood sugars remaining elevated today in the 200-250s. Continue moderate dose sliding scale insulin 3/8 added back home insulin at reduced rate and monitor glucose trends. Increase insulin today for improved control long discussion with patient regarding glucose management. Patient does have a CGM but has not used this before. 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 continue incentive spirometry no signs/ symptoms to suggest underlying infectious process no leukocytosis. patient afebrile (7) HFrEF (heart failure with reduced ejection fraction): Code(s): I50.20 - Unspecified systolic (congestive) heart failure Status: Acute Assessment and Plan: Echo completed due to CVA which revealed moderately reduced EF of 30-35% no prior echo available for review and patient does not carry diagnosis of heart failure patient is asymptomatic and appears clinically compensated at this time NOEMY with mod-severe global hypokinesis, EF 35-40%. Per cardiology, increase lisinopril and start spironolactone Outpt follow up with cardiology Plan
[2022-10-31 16:45] LABS: Glucose Point of Care 185 mg/dl (65-105)
[2022-10-31 21:21] LABS: Glucose Point of Care 268 mg/dl (65-105)
[2022-10-31] MEDS: INSULIN HUMAN ISOPHAN/REGULAR 70/30 (*BKC) 100 UNITS/ML 12 UNITS SUB-Q (21:29)
[2022-11-01] VITALS (12 sets, daily range): BP systolic 125–160; BP diastolic 51–81; PULSE 47–65; RESP 14–20; TEMP 36.1–36.6; O2SAT 95–98
[2022-11-01 07:14] LABS: Mean Corpuscular HGB Conc 34.1 g/dl (32-36); Mean Corpuscular Hemoglobin 30.3 pg (26-34); Mean Corpuscular Volume 88.7 fl (80-100); Platelet Count Result 222 k/mm3 (150-375); Red Blood Count 4.62 M/mm3 (4.6-6.20); Red Cell Distribution Width 13.2 % (11.5-14.5); White Blood Count 8.7 K/mm3 (4.5-10.0)
[2022-11-01 07:44] LABS: Glucose Point of Care 186 mg/dl (65-105)
[2022-11-01] MEDS: INSULIN HUMAN ISOPHAN/REGULAR 70/30 (*BKC) 100 UNITS/ML 15 UNITS SUB-Q (08:52)
[2022-11-01] MEDS: FLUoxetine HCL 20 MG CAPSULE 80 MG PO (08:53)
[2022-11-01] MEDS: PANTOPRAZOLE 40 MG TABLET PO (08:53)
[2022-11-01] MEDS: SPIRONOLACTONE 25 MG TABLET PO (08:53)
[2022-11-01] MEDS: ROSUVASTATIN 10 MG TABLET 40 MG PO (08:53)
[2022-11-01] MEDS: METOPROLOL TARTRATE 50 MG TAB PO ×2 (08:53→20:27)
[2022-11-01] MEDS: ASPIRIN 81 MG ENTERIC TABLET PO (08:53)
[2022-11-01] MEDS: MORPHINE SULFATE (*CRX) 60 MG TABCR PO ×2 (08:54→20:30)
[2022-11-01] MEDS: lisinopriL 20 MG TABLET 40 MG PO (08:54)
[2022-11-01 09:21] LABS: Anion Gap 4 mmol/L (8-16); Blood Urea Nitrogen 20 mg/dL (9-20); Calcium 8.3 mg/dL (8.4-10.2); Carbon Dioxide 29 mmol/L (22-30); Chloride 102 mmol/L (98-107); Estimated CRCL calculation 73 ml/min; Estimated Glomerular Filt Rate > 60; Glucose 164 mg/dL (65-110); Potassium 4.1 mmol/L (3.4-5.0); Sodium 135 mmol/L (137-145)
[2022-11-01 11:38] LABS: Glucose Point of Care 169 mg/dl (65-105)
--- NOTE | 2022-11-01 12:30 | PM.IMPN ---
Progress Note: A&P Assessment and Plan (1) Acute cerebrovascular accident: Code(s): I63.9 - Cerebral infarction, unspecified Status: Acute Assessment and Plan: The patient presented to the emergency department via EMS from home with concerns for possible stroke due to difficulties with word finding and reported left arm weakness according to his . Head CT showed probable areas of acute infarction left frontoparietal region and subsequent CTA of the neck showed near occlusion of the right carotid artery with probable acute infarct of the left frontoparietal region ED physician discussed case with the stroke team at [facility] (Dr. Dorado) and they indicate that he is a candidate for nonemergent intervention. he has been accepted for transfer and is awaiting bed availability brain MRI showed scattered acute infarcts involving the bilateral frontal, parietal, and occipital lobes and left temporal lobe with subacute infarcts of the right frontal lobe and left parietal occipital lobes. Given distribution, there is concern for cardioembolic source. Echo with bubble study obtained which showed intact septum. Discussed results with [facility] Neurology who recommend proceeding with NOEMY to rule out PFO/thrombus. NOEMY completed today which showed no thrombus in left atrium or left atrial appendage, no evidence of intracardiac shunt Continue aspirin and high-intensity statin PT/OT/ST while awaiting transfer Continue to await a bed at [facility] (2) Right carotid artery occlusion: Code(s): I65.21 - Occlusion and stenosis of right carotid artery Status: Acute Assessment and Plan: see plan as above (3) Hypoglycemia: Code(s): E16.2 - Hypoglycemia, unspecified Status: Acute Assessment and Plan: patient's reports several episodes or patient becomes clammy, confused, and sweaty patient has not been compliant with monitoring glucose at home no episodes of hypoglycemia this admission continue with Accu-Cheks ACHS metformin and home insulin held on admission blood sugars remaining elevated today in the 200-250s. Continue moderate dose sliding scale insulin / added back home insulin at reduced rate and monitor glucose trends. Increase insulin today for improved control long discussion with patient regarding glucose management. Patient does have a CGM but has not used this before. Will attempt inpatient personal development educator consultation Glucose stable at 164 today Continue to monitor and trend (4) Insulin dependent type 2 diabetes mellitus: Code(s): E11.9 - Type 2 diabetes mellitus without complications; Z79.4 - nursing home (current) use of insulin Status: Acute Assessment and Plan: see plan as above A1c is 7.4 (5) Renal insufficiency: Code(s): N28.9 - Disorder of kidney and ureter, unspecified Status: Acute Assessment and Plan: renal function appears consistent with baseline Continues to be stable at 20/1.20 (6) Abnormal chest x-ray: Code(s): R93.89 - Abnormal findings on diagnostic imaging of other specified body structures Status: Acute Assessment and Plan: Chest x-ray is once again abnormal, showing patchy bilateral airspace opacities which could be atelectasis versus pneumonia. continue incentive spirometry no signs/ symptoms to suggest underlying infectious process no leukocytosis. patient afebrile (7) HFrEF (heart failure with reduced ejection fraction): Code(s): I50.20 - Unspecified systolic (congestive) heart failure Status: Acute Assessment and Plan: Echo completed due to CVA which revealed moderately reduced EF of 30-35% no prior echo available for review and patient does not carry diagnosis of heart failure patient is asymptomatic and appears clinically compensated at this time NOEMY with mod-severe global hypokinesis, EF 35-40%. Per cardiology, increase anne
--- NOTE | 2022-11-01 12:30 | P.PNIM_ITS ---
Progress Note: A&P Assessment and Plan (1) Acute cerebrovascular accident: Code(s): I63.9 - Cerebral infarction, unspecified Status: Acute Assessment and Plan: The patient presented to the emergency department via EMS from home with concerns for possible stroke due to difficulties with word finding and reported left arm weakness according to his . * Head CT showed probable areas of acute infarction left frontoparietal region and subsequent CTA of the neck showed near occlusion of the right carotid artery with probable acute infarct of the left frontoparietal region * ED physician discussed case with the stroke team at [facility] (Dr. Dorado) and they indicate that he is a candidate for nonemergent intervention. he has been accepted for transfer and is awaiting bed availability * brain MRI showed scattered acute infarcts involving the bilateral frontal, parietal, and occipital lobes and left temporal lobe with subacute infarcts of the right frontal lobe and left parietal occipital lobes. * Given distribution, there is concern for cardioembolic source. * Echo with bubble study obtained which showed intact septum. Discussed results with [facility] Neurology who recommend proceeding with NOEMY to rule out PFO/thrombus. * NOEMY completed today which showed no thrombus in left atrium or left atrial appendage, no evidence of intracardiac shunt * Continue aspirin and high-intensity statin * PT/OT/ST while awaiting transfer * Continue to await a bed at [facility] (2) Right carotid artery occlusion: Code(s): I65.21 - Occlusion and stenosis of right carotid artery Status: Acute Assessment and Plan: see plan as above (3) Hypoglycemia: Code(s): E16.2 - Hypoglycemia, unspecified Status: Acute Assessment and Plan: patient's reports several episodes or patient becomes clammy, confused, and sweaty * patient has not been compliant with monitoring glucose at home * no episodes of hypoglycemia this admission * continue with Accu-Cheks ACHS * metformin and home insulin held on admission * blood sugars remaining elevated today in the 200-250s. Continue moderate dose sliding scale insulin * 10/30 added back home insulin at reduced rate and monitor glucose trends. Increase insulin today for improved control * long discussion with patient regarding glucose management. Patient does have a CGM but has not used this before. Will attempt inpatient pawn broker consultation * Glucose stable at 164 today * Continue to monitor and trend (4) Insulin dependent type 2 diabetes mellitus: Code(s): E11.9 - Type 2 diabetes mellitus without complications; Z79.4 - [facility] (current) use of insulin Status: Acute Assessment and Plan: see plan as above * A1c is 7.4 (5) Renal insufficiency: Code(s): N28.9 - Disorder of kidney and ureter, unspecified Status: Acute Assessment and Plan: renal function appears consistent with baseline Continues to be stable at 20/1.20 (6) Abnormal chest x-ray: Code(s): R93.89 - Abnormal findings on diagnostic imaging of other specified body structures Status: Acute Assessment and Plan: Chest x-ray is once again abnormal, showing patchy bilateral airspace opacities which could be atelectasis versus pneumonia. * continue incentive spirometry * no signs/ symptoms to suggest underlying infectious process * no leukocytosis. patient afebrile (7) HFrEF (heart failure with reduced ejection fraction): Code(s):
[2022-11-01 16:37] LABS: Glucose Point of Care 264 mg/dl (65-105)
[2022-11-01] MEDS: INSULIN ASPART (*BKC) 100 UNITS/ML SUB-Q (17:46)
[2022-11-01] MEDS: INSULIN HUMAN ISOPHAN/REGULAR 70/30 (*BKC) 100 UNITS/ML 12 UNITS SUB-Q (20:30)
[2022-11-01 21:47] LABS: Glucose Point of Care 181 mg/dl (65-105)
[2022-11-02] VITALS (11 sets, daily range): BP systolic 108–163; BP diastolic 53–77; PULSE 46–64; RESP 14–20; TEMP 36.1–37; O2SAT 91–100
[2022-11-02 06:14] LABS: Basophils Absolute Auto 0.1 K/mm3 (0.0-0.1); Basophils Percent Auto 0.6 % (0.2-1.2); Eosinophils Absolute Auto 0.6 K/mm3 (0-0.3); Eosinophils Percent Auto 5.9 % (0-4.4); Hemoglobin 14.7 g/dL (14.0-18.0); Immature Granulocyte Absolute 0.02 K/mm3 (0.00-0.031); Immature Granulocyte Percent A 0.2 % (0-0.5); Lymphocytes Absolute Auto 3.42 K/mm3 (0.9-3.2); Lymphocytes Percent Auto 36.5 % (18.3-44.2); Mean Corpuscular HGB Conc 33.4 g/dl (32-36); Mean Corpuscular Hemoglobin 30.9 pg (26-34); Mean Corpuscular Volume 92.6 fl (80-100); Mean Platelet Volume 11.9 fl (7.4-10.4); Monocytes Absolute Auto 0.9 K/mm3 (0.1-0.6); Monocytes Percent Auto 9.8 % (2.6-8.5); Neutrophils Absolute Auto 4.4 K/mm3 (1.3-6.7); Platelet Count Result 232 k/mm3 (150-375); Red Blood Count 4.75 M/mm3 (4.6-6.20); Red Cell Distribution Width 13.3 % (11.5-14.5); White Blood Count 9.4 K/mm3 (4.5-10.0)
[2022-11-02 06:28] LABS: Alanine Aminotransferase 44 U/L (6-50); Albumin Level 3.6 g/dL (3.5-5.1); Alkaline Phosphatase 304 U/L (38-126); Anion Gap 6 mmol/L (8-16); Aspartate Amino Transferase 69 U/L (17-59); Bilirubin,Total 0.5 mg/dL (0.2-1.3); Blood Urea Nitrogen 22 mg/dL (9-20); Calcium 8.6 mg/dL (8.4-10.2); Carbon Dioxide 29 mmol/L (22-30); Chloride 101 mmol/L (98-107); Estimated CRCL calculation 63 ml/min; Estimated Glomerular Filt Rate 52; Glucose 176 mg/dL (65-110); Potassium 3.9 mmol/L (3.4-5.0); Sodium 136 mmol/L (137-145)
[2022-11-02 07:51] LABS: Glucose Point of Care 182 mg/dl (65-105)
[2022-11-02] MEDS: PANTOPRAZOLE 40 MG TABLET PO (08:40)
[2022-11-02] MEDS: SPIRONOLACTONE 25 MG TABLET PO (08:40)
[2022-11-02] MEDS: lisinopriL 20 MG TABLET 40 MG PO (08:40)
[2022-11-02] MEDS: FLUoxetine HCL 20 MG CAPSULE 80 MG PO (08:40)
[2022-11-02] MEDS: ROSUVASTATIN 10 MG TABLET 40 MG PO (08:40)
[2022-11-02] MEDS: ASPIRIN 81 MG ENTERIC TABLET PO (08:40)
[2022-11-02] MEDS: METOPROLOL TARTRATE 50 MG TAB PO ×2 (08:41→20:29)
[2022-11-02] MEDS: INSULIN HUMAN ISOPHAN/REGULAR 70/30 (*BKC) 100 UNITS/ML 15 UNITS SUB-Q (08:46)
[2022-11-02] MEDS: MORPHINE SULFATE (*CRX) 60 MG TABCR PO ×2 (08:49→20:30)
[2022-11-02 11:48] LABS: Glucose Point of Care 216 mg/dl (65-105)
[2022-11-02] MEDS: INSULIN ASPART (*BKC) 100 UNITS/ML SUB-Q (12:15)
--- NOTE | 2022-11-02 12:30 | PM.IMPN ---
Progress Note: A&P Assessment and Plan (1) Acute cerebrovascular accident: Code(s): I63.9 - Cerebral infarction, unspecified Status: Acute Assessment and Plan: The patient presented to the emergency department via EMS from home with concerns for possible stroke due to difficulties with word finding and reported left arm weakness according to his . Head CT showed probable areas of acute infarction left frontoparietal region and subsequent CTA of the neck showed near occlusion of the right carotid artery with probable acute infarct of the left frontoparietal region ED physician discussed case with the stroke team at [facility] (Dr. Dorado) and they indicate that he is a candidate for nonemergent intervention. he has been accepted for transfer and is awaiting bed availability brain MRI showed scattered acute infarcts involving the bilateral frontal, parietal, and occipital lobes and left temporal lobe with subacute infarcts of the right frontal lobe and left parietal occipital lobes. Given distribution, there is concern for cardioembolic source. Echo with bubble study obtained which showed intact septum. Discussed results with [facility] Neurology who recommend proceeding with NOEMY to rule out PFO/thrombus. NOEMY completed today which showed no thrombus in left atrium or left atrial appendage, no evidence of intracardiac shunt Continue aspirin and high-intensity statin PT/OT/ST while awaiting transfer Continue to await a bed at [facility] (2) Right carotid artery occlusion: Code(s): I65.21 - Occlusion and stenosis of right carotid artery Status: Acute Assessment and Plan: see plan as above (3) Hypoglycemia: Code(s): E16.2 - Hypoglycemia, unspecified Status: Acute Assessment and Plan: patient's reports several episodes or patient becomes clammy, confused, and sweaty patient has not been compliant with monitoring glucose at home no episodes of hypoglycemia this admission continue with Accu-Cheks ACHS metformin and home insulin held on admission blood sugars better controlled 160-200s 10/30 added back home insulin at reduced rate and monitor glucose trends. Increase insulin today for improved control long discussion with patient regarding glucose management. Patient does have a CGM but has not used this before. 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 continue incentive spirometry no signs/ symptoms to suggest underlying infectious process no leukocytosis. patient afebrile (7) HFrEF (heart failure with reduced ejection fraction): Code(s): I50.20 - Unspecified systolic (congestive) heart failure Status: Acute Assessment and Plan: Echo completed due to CVA which revealed moderately reduced EF of 30-35% no prior echo available for review and patient does not carry diagnosis of heart failure patient is asymptomatic and appears clinically compensated at this time NOEMY with mod-severe global hypokinesis, EF 35-40%. Per cardiology, increase lisinopril and start spironolactone Outp
--- NOTE | 2022-11-02 12:30 | P.PNIM_ITS ---
Progress Note: A&P Assessment and Plan (1) Acute cerebrovascular accident: Code(s): I63.9 - Cerebral infarction, unspecified Status: Acute Assessment and Plan: The patient presented to the emergency department via EMS from home with concerns for possible stroke due to difficulties with word finding and reported left arm weakness according to his . * Head CT showed probable areas of acute infarction left frontoparietal region and subsequent CTA of the neck showed near occlusion of the right carotid artery with probable acute infarct of the left frontoparietal region * ED physician discussed case with the stroke team at [facility] (Dr. Dorado) and they indicate that he is a candidate for nonemergent intervention. he has been accepted for transfer and is awaiting bed availability * brain MRI showed scattered acute infarcts involving the bilateral frontal, parietal, and occipital lobes and left temporal lobe with subacute infarcts of the right frontal lobe and left parietal occipital lobes. * Given distribution, there is concern for cardioembolic source. * Echo with bubble study obtained which showed intact septum. Discussed results with [facility] Neurology who recommend proceeding with NOEMY to rule out PFO/thrombus. * NOEMY completed today which showed no thrombus in left atrium or left atrial appendage, no evidence of intracardiac shunt * Continue aspirin and high-intensity statin * PT/OT/ST while awaiting transfer * Continue to await a bed at [facility] (2) Right carotid artery occlusion: Code(s): I65.21 - Occlusion and stenosis of right carotid artery Status: Acute Assessment and Plan: see plan as above (3) Hypoglycemia: Code(s): E16.2 - Hypoglycemia, unspecified Status: Acute Assessment and Plan: patient's reports several episodes or patient becomes clammy, confused, and sweaty * patient has not been compliant with monitoring glucose at home * no episodes of hypoglycemia this admission * continue with Accu-Cheks ACHS * metformin and home insulin held on admission * blood sugars better controlled 160-200s * 10/30 added back home insulin at reduced rate and monitor glucose trends. I ncrease insulin today for improved control * long discussion with patient regarding glucose management. Patient does have a CGM but has not used this before. Will attempt inpatient dope worker consultation * Glucose stable at 176 today * Continue to monitor and trend (4) Insulin dependent type 2 diabetes mellitus: Code(s): E11.9 - Type 2 diabetes mellitus without complications; Z79.4 - terminal carman (current) use of insulin Status: Acute Assessment and Plan: see plan as above * A1c is 7.4 (5) Renal insufficiency: Code(s): N28.9 - Disorder of kidney and ureter, unspecified Status: Acute Assessment and Plan: renal function appears consistent with baseline Continues to be stable at 22/1.40 Baseline is 1.1-1.40 (6) Abnormal chest x-ray: Code(s): R93.89 - Abnormal findings on diagnostic imaging of other specified body structures Status: Acute Assessment and Plan: Chest x-ray is once again abnormal, showing patchy bilateral airspace opacities which could be atelectasis versus pneumonia. * continue incentive spirometry * no signs/ symptoms to suggest underlying infectious process * no leukocytosis. patient afebrile (7) HFrEF (heart failure with reduced ejection fraction): Code(s): I50.20 - Unspecified systolic (mehdi
[2022-11-02 16:50] LABS: Glucose Point of Care 111 mg/dl (65-105)
[2022-11-02 20:28] LABS: Glucose Point of Care 200 mg/dl (65-105)
[2022-11-02] MEDS: INSULIN HUMAN ISOPHAN/REGULAR 70/30 (*BKC) 100 UNITS/ML 12 UNITS SUB-Q (20:31)
[2022-11-03] VITALS (13 sets, daily range): BP systolic 101–132; BP diastolic 42–70; PULSE 46–63; RESP 14–20; TEMP 36.1–36.3; O2SAT 94–99
--- NOTE | 2022-11-03 03:41 | PC.NURSE ---
Daylight Savings Time For Daylight Savings Time Ending in the Fall - Clocks are moved back. For Daylight Savings Time Beginning in the Spring - Clocks are moved ahead. For [facility], the time of change occurs at 0200 hrs. Time is taken from the surveillance observer. This entry on the patient's chart recognizes the change in time reflected during documentation. Example: 2 entries for vital signs may be charted for 0200 hrs.
[2022-11-03 07:56] LABS: Glucose Point of Care 124 mg/dl (65-105)
[2022-11-03] MEDS: MORPHINE SULFATE (*CRX) 60 MG TABCR PO ×2 (08:31→20:53)
[2022-11-03] MEDS: FLUoxetine HCL 20 MG CAPSULE 80 MG PO (08:33)
[2022-11-03] MEDS: ASPIRIN 81 MG ENTERIC TABLET PO (08:34)
[2022-11-03] MEDS: SPIRONOLACTONE 25 MG TABLET PO (08:34)
[2022-11-03] MEDS: ROSUVASTATIN 10 MG TABLET 40 MG PO (08:34)
[2022-11-03] MEDS: PANTOPRAZOLE 40 MG TABLET PO (08:34)
[2022-11-03] MEDS: INSULIN HUMAN ISOPHAN/REGULAR 70/30 (*BKC) 100 UNITS/ML 15 UNITS SUB-Q (08:40)
--- NOTE | 2022-11-03 09:00 | PM.IMPN ---
Progress Note: A&P Assessment and Plan (1) Acute cerebrovascular accident: Code(s): I63.9 - Cerebral infarction, unspecified Status: Acute Assessment and Plan: The patient presented to the emergency department via EMS from home with concerns for possible stroke due to difficulties with word finding and reported left arm weakness according to his . Head CT showed probable areas of acute infarction left frontoparietal region and subsequent CTA of the neck showed near occlusion of the right carotid artery with probable acute infarct of the left frontoparietal region ED physician discussed case with the stroke team at [facility] (Dr. Dorado) and they indicate that he is a candidate for nonemergent intervention. he has been accepted for transfer and is awaiting bed availability brain MRI showed scattered acute infarcts involving the bilateral frontal, parietal, and occipital lobes and left temporal lobe with subacute infarcts of the right frontal lobe and left parietal occipital lobes. Given distribution, there is concern for cardioembolic source. Echo with bubble study obtained which showed intact septum. Discussed results with [facility] Neurology who recommend proceeding with NOEMY to rule out PFO/thrombus. NOEMY completed today which showed no thrombus in left atrium or left atrial appendage, no evidence of intracardiac shunt Continue aspirin and high-intensity statin PT/OT/ST U suggested the patient get a loop recorder placed and no need for transfer at this time Patient will need a 30 day event monitor due to inability to get loop recorder at this time Outpatient follow-up for loop recorder is a must (2) Right carotid artery occlusion: Code(s): I65.21 - Occlusion and stenosis of right carotid artery Status: Acute Assessment and Plan: see plan as above (3) Hypoglycemia: Code(s): E16.2 - Hypoglycemia, unspecified Status: Acute Assessment and Plan: patient's reports several episodes or patient becomes clammy, confused, and sweaty patient has not been compliant with monitoring glucose at home no episodes of hypoglycemia this admission continue with Accu-Cheks ACHS metformin and home insulin held on admission blood sugars better controlled 160-200s 10/30 added back home insulin at reduced rate and monitor glucose trends. Increase insulin today for improved control long discussion with patient regarding glucose management. Patient does have a CGM but has not used this before. 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 continue incentive spirometry no signs/ symptoms to suggest underlying infectious process no leukocytosis. patient afebrile (7) HFrEF (heart failure with reduced ejection fraction): Code(s): I50.20 - Unspecified systolic (congestive) heart failure Status: Acute Assessment and Plan: Echo completed due to CVA which revealed moderately reduced EF of 30-35% no prior echo available for review and patient does not carry diagnosis of heart failure patient is asymp
--- NOTE | 2022-11-03 09:00 | P.PNIM_ITS ---
Progress Note: A&P Assessment and Plan (1) Acute cerebrovascular accident: Code(s): I63.9 - Cerebral infarction, unspecified Status: Acute Assessment and Plan: The patient presented to the emergency department via EMS from home with concerns for possible stroke due to difficulties with word finding and reported left arm weakness according to his . * Head CT showed probable areas of acute infarction left frontoparietal region and subsequent CTA of the neck showed near occlusion of the right carotid artery with probable acute infarct of the left frontoparietal region * ED physician discussed case with the stroke team at [facility] (Dr. Dorado) and they indicate that he is a candidate for nonemergent intervention. he has been accepted for transfer and is awaiting bed availability * brain MRI showed scattered acute infarcts involving the bilateral frontal, parietal, and occipital lobes and left temporal lobe with subacute infarcts of the right frontal lobe and left parietal occipital lobes. * Given distribution, there is concern for cardioembolic source. * Echo with bubble study obtained which showed intact septum. Discussed results with [facility] Neurology who recommend proceeding with NOEMY to rule out PFO/thrombus. * NOEMY completed today which showed no thrombus in left atrium or left atrial appendage, no evidence of intracardiac shunt * Continue aspirin and high-intensity statin * PT/OT/ST * [facility] suggested the patient get a loop recorder placed and no need for transfer at this time * Patient will need a 30 day event monitor due to inability to get loop recorder at this time * Outpatient follow-up for loop recorder is a must (2) Right carotid artery occlusion: Code(s): I65.21 - Occlusion and stenosis of right carotid artery Status: Acute Assessment and Plan: see plan as above (3) Hypoglycemia: Code(s): E16.2 - Hypoglycemia, unspecified Status: Acute Assessment and Plan: patient's reports several episodes or patient becomes clammy, confused, and sweaty * patient has not been compliant with monitoring glucose at home * no episodes of hypoglycemia this admission * continue with Accu-Cheks ACHS * metformin and home insulin held on admission * blood sugars better controlled 160-200s * 10/30 added back home insulin at reduced rate and monitor glucose trends. Increase insulin today for improved control * long discussion with patient regarding glucose management. Patient does have a CGM but has not used this before. 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 * continue incentive spirometry * no signs/ symptoms to suggest underlying i
[2022-11-03] MEDS: ONDANSETRON INJ 4 MG/2 ML VIAL IV PUSH (09:30)
[2022-11-03] MEDS: lisinopriL 20 MG TABLET 40 MG PO (10:14)
[2022-11-03] MEDS: METOPROLOL TARTRATE 50 MG TAB PO ×2 (11:14→20:54)
[2022-11-03 11:56] LABS: Glucose Point of Care 166 mg/dl (65-105)
[2022-11-03 16:53] LABS: Glucose Point of Care 222 mg/dl (65-105)
[2022-11-03] MEDS: INSULIN ASPART (*BKC) 100 UNITS/ML SUB-Q (17:26)
[2022-11-03] MEDS: INSULIN HUMAN ISOPHAN/REGULAR 70/30 (*BKC) 100 UNITS/ML 12 UNITS SUB-Q (20:59)
[2022-11-03 21:22] LABS: Glucose Point of Care 152 mg/dl (65-105)
[2022-11-04] VITALS (7 sets, daily range): BP systolic 130–137; BP diastolic 42–49; PULSE 51–59; RESP 16–18; TEMP 36.1–36.2; O2SAT 96–100
[2022-11-04] MEDS: ACETAMINOPHEN 325 MG TABLET 650 MG PO (05:06)
[2022-11-04 07:52] LABS: Glucose Point of Care 167 mg/dl (65-105)
[2022-11-04 09:28] LABS: Hematocrit 40.8 % (42.0-52.0); Hemoglobin 13.8 g/dL (14.0-18.0); Mean Corpuscular HGB Conc 33.8 g/dl (32-36); Mean Corpuscular Hemoglobin 30.5 pg (26-34); Mean Corpuscular Volume 90.1 fl (80-100); Platelet Count Result 188 k/mm3 (150-375); Red Blood Count 4.53 M/mm3 (4.6-6.20); Red Cell Distribution Width 13.3 % (11.5-14.5)
[2022-11-04] MEDS: INSULIN HUMAN ISOPHAN/REGULAR 70/30 (*BKC) 100 UNITS/ML 15 UNITS SUB-Q (09:39)
[2022-11-04 09:40] LABS: Anion Gap 8 mmol/L (8-16); Blood Urea Nitrogen 24 mg/dL (9-20); Calcium 8.7 mg/dL (8.4-10.2); Carbon Dioxide 27 mmol/L (22-30); Chloride 99 mmol/L (98-107); Estimated CRCL calculation 63 ml/min; Estimated Glomerular Filt Rate 52; Glucose 185 mg/dL (65-110); Potassium 4.4 mmol/L (3.4-5.0); Sodium 134 mmol/L (137-145)
[2022-11-04] MEDS: SPIRONOLACTONE 25 MG TABLET PO (09:41)
[2022-11-04] MEDS: ASPIRIN 81 MG ENTERIC TABLET PO (09:41)
[2022-11-04] MEDS: FLUoxetine HCL 20 MG CAPSULE 80 MG PO (09:41)
[2022-11-04] MEDS: PANTOPRAZOLE 40 MG TABLET PO (09:41)
[2022-11-04] MEDS: lisinopriL 20 MG TABLET 40 MG PO (09:41)
[2022-11-04] MEDS: ROSUVASTATIN 10 MG TABLET 40 MG PO (09:41)
[2022-11-04] MEDS: MORPHINE SULFATE (*CRX) 60 MG TABCR PO (09:43)
[2022-11-04] MEDS: METOPROLOL TARTRATE 50 MG TAB PO (09:43)
[2022-11-04 11:47] LABS: Glucose Point of Care 188 mg/dl (65-105)
--- NOTE | 2022-11-04 13:09 | P.DS_ITS ---
DS: Admitting Diagnosis Discharge Date 11/04/2022 Admitting Diagnosis acute CVA DS: Discharge Diagnosis Discharge Diagnosis (1) Acute cerebrovascular accident: Code(s): I63.9 - Cerebral infarction, unspecified Status: Acute Assessment and Plan: The patient presented to the emergency department via EMS from home with concerns for possible stroke due to difficulties with word finding and reported left arm weakness according to his . * Head CT showed probable areas of acute infarction left frontoparietal region and subsequent CTA of the neck showed near occlusion of the right carotid artery with probable acute infarct of the left frontoparietal region * ED physician discussed case with the stroke team at [facility] (Dr. Dorado) and determined that he is a candidate for nonemergent intervention. he was accepted for transfer and was awaiting bed availability during admission * brain MRI showed scattered acute infarcts involving the bilateral frontal, parietal, and occipital lobes and left temporal lobe with subacute infarcts of the right frontal lobe and left parietal occipital lobes. * Given distribution, there is concern for cardioembolic source. * Echo with bubble study obtained which showed intact septum. Discussed results with [facility] who recommended proceeding with NOEMY to rule out PFO/thrombus. * NOEMY completed 10/31/22 which showed no thrombus in left atrium or left atrial appendage, no evidence of intracardiac shunt * Loop recorder initially recommended, however patient unable to have inpatient loop recorder placed. [facility] and Cardiology at this facility in agreement with outpatient loop recorder placement. Pt to follow up with Cardiology for placement * After several days of awaiting a bed [facility] and completion of workup, discussed with [facility] Neurology team who recommends patient can follow-up in the office. An appointment was made for 11/18/2022. Disc provided with images to take to appointment * Continue aspirin and high-intensity statin * PT/OT/ST completed durign admission (2) Right carotid artery occlusion: Code(s): I65.21 - Occlusion and stenosis of right carotid artery Status: Acute Assessment and Plan: see plan as above (3) Hypoglycemia: Code(s): E16.2 - Hypoglycemia, unspecified Status: Acute Assessment and Plan: patient's reports several episodes or patient becomes clammy, confused, and sweaty * patient has not been compliant with monitoring glucose at home * no episodes of hypoglycemia during admission * insulin initially held but blood sugars began to creep up therefore home insulin added back at lower dose with appropriate glucose control * morning insulin (Humulin 70/30) decreased to 15 units daily and evening insulin decreased to 12 units nightly * Patient educated extensively on importance of monitoring blood sugars with each meal and before taking insulin. 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
--- NOTE | 2022-11-04 13:09 | PM.DS ---
DS: Admitting Diagnosis Discharge Date 11/04/2022 Admitting Diagnosis acute CVA DS: Discharge Diagnosis Discharge Diagnosis (1) Acute cerebrovascular accident: Code(s): I63.9 - Cerebral infarction, unspecified Status: Acute Assessment and Plan: The patient presented to the emergency department via EMS from home with concerns for possible stroke due to difficulties with word finding and reported left arm weakness according to his . Head CT showed probable areas of acute infarction left frontoparietal region and subsequent CTA of the neck showed near occlusion of the right carotid artery with probable acute infarct of the left frontoparietal region ED physician discussed case with the stroke team at [facility] (Dr. Dorado) and determined that he is a candidate for nonemergent intervention. he was accepted for transfer and was awaiting bed availability during admission brain MRI showed scattered acute infarcts involving the bilateral frontal, parietal, and occipital lobes and left temporal lobe with subacute infarcts of the right frontal lobe and left parietal occipital lobes. Given distribution, there is concern for cardioembolic source. Echo with bubble study obtained which showed intact septum. Discussed results with [facility] who recommended proceeding with NOEMY to rule out PFO/thrombus. NOEMY completed 10/31/22 which showed no thrombus in left atrium or left atrial appendage, no evidence of intracardiac shunt Loop recorder initially recommended, however patient unable to have inpatient loop recorder placed. [facility] and Cardiology at this facility in agreement with outpatient loop recorder placement. Pt to follow up with Cardiology for placement After several days of awaiting a bed [facility] and completion of workup, discussed with [facility] Neurology team who recommends patient can follow-up in the office. An appointment was made for 11/18/2022. Disc provided with images to take to appointment Continue aspirin and high-intensity statin PT/OT/ST completed [facility] admission (2) Right carotid artery occlusion: Code(s): I65.21 - Occlusion and stenosis of right carotid artery Status: Acute Assessment and Plan: see plan as above (3) Hypoglycemia: Code(s): E16.2 - Hypoglycemia, unspecified Status: Acute Assessment and Plan: patient's reports several episodes or patient becomes clammy, confused, and sweaty patient has not been compliant with monitoring glucose at home no episodes of hypoglycemia during admission insulin initially held but blood sugars began to creep up therefore home insulin added back at lower dose with appropriate glucose control morning insulin (Humulin 70/30) decreased to 15 units daily and evening insulin decreased to 12 units nightly Patient educated extensively on importance of monitoring blood sugars with each meal and before taking insulin. Patient has a CGM at home that he will begin using Instructed to record blood sugars for 1 week and follow-up PCP for close monitoring (4) Insulin dependent type 2 diabetes mellitus: Code(s): E11.9 - Type 2 diabetes mellitus without complications; Z79.4 - group home (current) use of insulin Status: Acute Assessment and Plan: see plan as above A1c is 7.4 (5) Renal insufficiency: Code(s): N28.9 - Disorder of kidney and ureter, unspecified Status: Acute Assessment and Plan: renal function remained consistent with baseline (6) Abnormal chest x-ray: Code(s): R93.89 - Abnormal findings on diagnostic imaging of other specified body structures Status: Acute Assessment and Plan: Chest x-ray is once again abnormal, showing patchy bilateral airspace opacities which could be atelectasis versus pneumonia. incentive spirometry during admission no signs/ symptoms to suggest underlying infectious process no leukocytosis. patient afebrile (7)
[2022-11-04 16:39] LABS: Glucose Point of Care 74 mg/dl (65-105)
[2022-11-04 16:39] LABS: Glucose Point of Care 67 mg/dl (65-105)
[2022-11-04 17:19] LABS: Glucose Point of Care 80 mg/dl (65-105)
[2022-11-04 17:53] LABS: Glucose Point of Care 115 mg/dl (65-105)
--- NOTE | 2022-11-04 18:13 | PC.NURSE ---
Pt discharged home with . Clear instructions were given on follow up at [facility]. Pt was made aware of the appointment that was made for him. The importance of the followup was stressed many times to the pt. Pt participated and contributed in plan of care. Pt is A&O4. Pt has had no complaints and expresses no needs. Pt was monitored for any changes in status while here.
== END 2022-11-04 17:45 | disposition home or self-care (01) | DRG 65 ==
LOC: ANHED 17:20 → ANH3MEDSUR 22:04
PROVIDERS: Emergency Medicine; Internal Medicine Cardiovascular Disease; Nurse Practitioner; Physician Assistant; Admitting Provider Hospitalist; Emergency Provider Emergency Medicine; PCP Family Medicine; Visit Provider Physician Assistant
PROC: B24BZZ4 Ultrasonography of Heart with Aorta, Transesophageal (ICD-10-PCS; CPT 93312; principal; 2022-10-31 12:00)
DX: I63.231 Cerebral infarction due to unspecified occlusion or stenosis of right carotid arteries (principal); I50.20 Unspecified systolic (congestive) heart failure; G83.24 Monoplegia of upper limb affecting left nondominant side; R29.700 NIHSS score 0; Z79.4 Long term (current) use of insulin; I11.0 Hypertensive heart disease with heart failure; E11.51 Type 2 diabetes mellitus with diabetic peripheral angiopathy without gangrene; Z89.612 Acquired absence of left leg above knee; I25.10 Atherosclerotic heart disease of native coronary artery without angina pectoris; Z95.1 Presence of aortocoronary bypass graft; E11.42 Type 2 diabetes mellitus with diabetic polyneuropathy
CPT/HCPCS: 36415; 70450; 70496; 70498; 70553; 71045; 80048; 80053; 80061; 82948; 83036; 83735; 84484; 85025; 85027; 85610; 85730; 92507; 92523; 92610; 93005; 93312; 93320; 93325; 96375; 97161; 97165; 99285; A9270; A9577; C8929; G0378; J1815; J2250; J2405; J3010; J7030; J7040; Q9957; Q9967

== ENCOUNTER 2022-12-17 06:45 | Emergency (ER) | payer MEDICARE, SELFPAY ==
[2022-12-17 07:11] VITALS: BP 112/58; PULSE 70; RESP 18; O2SAT 98
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
[2022-12-17 08:39] LABS: Basophils Percent Auto 0.4 % (0.2-1.2); Eosinophils Absolute Auto 0.5 K/mm3 (0-0.3); Eosinophils Percent Auto 5.9 % (0-4.4); Hematocrit 38.4 % (42.0-52.0); Hemoglobin 12.5 g/dL (14.0-18.0); Immature Granulocyte Absolute 0.03 K/mm3 (0.00-0.031); Immature Granulocyte Percent A 0.4 % (0-0.5); Lymphocytes Percent Auto 29.1 % (18.3-44.2); Mean Corpuscular HGB Conc 32.6 g/dl (32-36); Mean Corpuscular Hemoglobin 31.1 pg (26-34); Mean Corpuscular Volume 95.5 fl (80-100); Mean Platelet Volume 11.2 fl (7.4-10.4); Monocytes Absolute Auto 0.7 K/mm3 (0.1-0.6); Monocytes Percent Auto 8.6 % (2.6-8.5); Neutrophils Absolute Auto 4.6 K/mm3 (1.3-6.7); Neutrophils Percent Auto 55.6 % (45.5-73.1); Platelet Count Result 179 k/mm3 (150-375); Red Blood Count 4.02 M/mm3 (4.6-6.20); Red Cell Distribution Width 13.3 % (11.5-14.5); White Blood Count 8.2 K/mm3 (4.5-10.0)
[2022-12-17 08:52] LABS: Anion Gap 3 mmol/L (8-16); Blood Urea Nitrogen 28 mg/dL (9-20); Calcium 8.7 mg/dL (8.4-10.2); Carbon Dioxide 31 mmol/L (22-30); Chloride 100 mmol/L (98-107); Estimated CRCL calculation 71 ml/min; Estimated Glomerular Filt Rate > 60; Glucose 161 mg/dL (65-110); Potassium 4.9 mmol/L (3.4-5.0); Sodium 134 mmol/L (137-145)
[2022-12-17 09:47] VITALS: BP 123/49; PULSE 78; RESP 18; O2SAT 100
== END 2022-12-17 09:40 | disposition home or self-care (01) ==
PROVIDERS: Emergency Provider Emergency Medicine; PCP Family Medicine
DX: Z51.89 Encounter for other specified aftercare (principal); F41.9 Anxiety disorder, unspecified; M19.90 Unspecified osteoarthritis, unspecified site; I11.0 Hypertensive heart disease with heart failure; I50.9 Heart failure, unspecified; F32.A Depression, unspecified; E11.9 Type 2 diabetes mellitus without complications; Z79.4 Long term (current) use of insulin; Z79.84 Long term (current) use of oral hypoglycemic drugs
CPT/HCPCS: 36415; 80048; 85025; 99283

== ENCOUNTER 2023-01-08 04:13 | Observation (INO) | payer MEDICARE, SELFPAY ==
[2023-01-08] VITALS (25 sets, daily range): BP systolic 156–217; BP diastolic 62–100; PULSE 82–122; RESP 14–27; TEMP 35.9–37; O2SAT 98–100
--- NOTE | ~2023-01-08 | NM_ITS ---
EXAMINATION: NM heather stress w perfusion DATE: 01/09/2023 12:25 INDICATION: Abnormal electrocardiogram. TECHNIQUE: Rest images were obtained following intravenous administration of 10.0 mCi Tc99m tetrofosm in (Myoview). The patient was infused intravenously with Lexiscan (regadenoson). Then, 33.0 mCi Tc99m tetrofosmin (Myoview) was administered intravenously, and stress images were obtained. Data was balwinder nstructed into short axis and horizontal and vertical long axis SPECT images. Gated SPECT images were also obtained. COMPARISON: CT abdomen and pelvis 01/08/2023 FINDINGS: There is a large, severe, fixed perfusion defect involving left ventricular apex, apical to mid anterior wall, apical septal segment, and inferior wall, consistent with infarct. No reversible component to suggest ischemia. There is global hypokinesis. Left ventricular ejection fraction measu res 30%. IMPRESSION: 1. Large area of severe infarct involving left ventricular apex, apical to mid anterior wall, apical septal segment, and inferior wall. 2. Global hypokinesis with left ventricular ejection fraction measuring 30%. Reviewed, dictated and finalized at location A.
--- NOTE | ~2023-01-08 | XR_ITS ---
EXAMINATION: XR abdomen/kub 1V INDICATION: Constipation TECHNIQUE: Supine views of the abdomen were obtained on 2 radiographs. COMPARISON: CT, 01/08/2023 FINDINGS: There is a moderate volume of stool in the ascending colon. The bowel gas pattern is normal . No dilated loops of bowel are evident. The visualized lung bases are clear. There are partially lara ged changes of left lower limb amputation. IMPRESSION: 1. Moderate volume of stool in the ascending colon. Reviewed, dictated and finalized at location A.
--- NOTE | ~2023-01-08 | CT_ITS ---
CT of the Abdomen and Pelvis: Indication: Abdominal pain Technique: 2.5 mm axial scans were obtained through the abdomen and pelvis following intravenous adm inistration of 100 cc of Omnipaque 350. Dose reduction technique was used on this scan by utilizing a utomated exposure control and iterative reconstruction technique. The dose-length product (DLP) was 7 20.67 mGy-cm. COMPARISON: 05/26/2022 Findings: Scans through the lung bases are unremarkable. The liver, spleen, pancreas, gallbladder, adrenals and kidneys are within normal limits. There are se javed atherosclerotic calcifications of the aorta and iliac vessels. No lymphadenopathy. Possible mild wall thickening of distal stomach and duodenum. No bowel obstruction. No abscess or rodríguez e air. Images through the pelvis were performed. Suspected urinary bladder wall thickening. No pelvic mass s een. No ascites. Impression: Questionable gastritis/duodenitis. Correlate clinically. Consider infection or peptic ulcer disease. Possible mild urinary bladder wall thickening. Correlate with urinalysis and symptomatology for cysti tis. Reviewed, dictated and finalized at location . Impression: Questionable gastritis/duodenitis. Correlate clinically. Consider infection or peptic ulcer disease. Possible mild urinary bladder wall thickening. Correlate with urinalysis and sy mptomatology for cystitis.
--- NOTE | ~2023-01-08 | XR_ITS ---
Portable chest x-ray Comparison: 10/27/2022 Clinical History: Nausea and vomiting Findings: Lungs are clear, without focal consolidation or pleural effusion. Cardiomediastinal silho uette is stable. Stable postoperative changes of the mediastinum. Bones and soft tissues are unremark able. Impression: Clear lungs. Reviewed, dictated and finalized at location . Impression: Clear lungs.
[2023-01-08 04:38] LABS: Basophils Percent Auto 0.2 % (0.2-1.2); Eosinophils Percent Auto 0.1 % (0-4.4); Hematocrit 50.4 % (42.0-52.0); Hemoglobin 17.8 g/dL (14.0-18.0); Immature Granulocyte Absolute 0.07 K/mm3 (0.00-0.031); Immature Granulocyte Percent A 0.4 % (0-0.5); Lymphocytes Absolute Auto 3.09 K/mm3 (0.9-3.2); Lymphocytes Percent Auto 17.9 % (18.3-44.2); Mean Corpuscular HGB Conc 35.3 g/dl (32-36); Mean Corpuscular Hemoglobin 30.9 pg (26-34); Mean Corpuscular Volume 87.5 fl (80-100); Mean Platelet Volume 11.5 fl (7.4-10.4); Monocytes Absolute Auto 1.6 K/mm3 (0.1-0.6); Monocytes Percent Auto 9.1 % (2.6-8.5); Neutrophils Absolute Auto 12.5 K/mm3 (1.3-6.7); Neutrophils Percent Auto 72.3 % (45.5-73.1); Platelet Count Result 312 k/mm3 (150-375); Red Blood Count 5.76 M/mm3 (4.6-6.20); Red Cell Distribution Width 13.1 % (11.5-14.5); White Blood Count 17.2 K/mm3 (4.5-10.0)
[2023-01-08 04:49] LABS: Alanine Aminotransferase 23 U/L (6-50); Alkaline Phosphatase 144 U/L (38-126); Anion Gap 12 mmol/L (8-16); Aspartate Amino Transferase 31 U/L (17-59); Bilirubin,Total 0.6 mg/dL (0.2-1.3); Blood Urea Nitrogen 29 mg/dL (9-20); Calcium 8.7 mg/dL (8.4-10.2); Carbon Dioxide 24 mmol/L (22-30); Chloride 90 mmol/L (98-107); Estimated CRCL calculation 57 ml/min; Estimated Glomerular Filt Rate 48; Glucose 299 mg/dL (65-110); Lipase 133 U/L (23-300); Potassium 3.6 mmol/L (3.4-5.0); Sodium 126 mmol/L (137-145)
[2023-01-08] MEDS: FAMOTIDINE 20 MG/2 ML VIAL IV PUSH (05:30)
[2023-01-08] MEDS: ONDANSETRON INJ 4 MG/2 ML VIAL IV PUSH ×2 (05:30→10:53)
[2023-01-08] MEDS: SODIUM CHLORIDE 0.9% IV 2,000 ML 999 ML IV CONT (05:30)
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
--- NOTE | 2023-01-08 05:52 | PC.NURSE ---
Patient off unit to Radiology.
--- NOTE | 2023-01-08 06:39 | ECG_ITS ---
Measurements Intervals [place] Rate: 103 P: 66 CT: 171 QRS: 37 QRSD: 89 T: 73 QT: 336 QTc: 440 Interpretive Statements SINUS TACHYCARDIA POSSIBLE LEFT ATRIAL ENLARGEMENT VOLTAGE CRITERIA FOR LVH CONSIDER INFERIOR INFARCT, AGE INDETERMINATE BORDERLINE ST-T WAVE ABNORMALITY- HIGH LATERAL LEADS BASELINE ARTIFACT- I, II, AVR, AVL, AVF, V1 ABNORMAL ECG COMPARED TO ECG 10/27/2022 16:35:51 SINUS TACHYCARDIA NOW PRESENT Electronically Signed On 01-08-2023 7:48:51 CDT by Dylan Baker D.O.
[2023-01-08] MEDS: hydrALAZINE HCL 20 MG/ML VIAL 10 MG IV PUSH ×2 (06:58→14:10)
[2023-01-08 07:09] LABS: Influenza A QL RT-PCR Negative (Negative); Influenza B QL RT-PCR Negative (Negative); RSV RNA, RT-PCR Negative (Negative); SARS-CoV-2 RNA PCR Negative (Negative)
--- NOTE | 2023-01-08 07:12 | PC.NURSE ---
Patient report given to ÁLVARO Dhaliwal. All questions answered and care of patient transferred.
--- NOTE | 2023-01-08 07:52 | ADMGEN ---
This patient, Calvin Flores, was admitted to Medical Room 252-01. Patient/family oriented to hospital policies and general routines including ID bracelet, bed and alarms, visiting hours, pain management, procedures, bathroom and other care routines, personal items, smoking policy, room service/diet, and visiting hours. Information on how to activate the Rapid Response Team has been discussed. Patient/Family are encouraged to report perceived risks to care and to ask questions if they do not understand what they are told or what they should do.
[2023-01-08 08:07] LABS: Appearance Urine Clear (Clear); Bacteria Urine None Seen /hpf; Bilirubin Urine Negative (Negative); Blood Urine 1+ (Negative); Color Urine Yellow (Yellow); Glucose Urine UA 2+ mg/dL (Negative); Ketones Urine Trace mg/dL (Negative); Leukocyte Esterase Ur Negative LEU/UL (Negative); Need Manual Microscopic Reviewed; Nitrate Urine Negative (Negative); Protein Urine 4+ mg/dL (Negative); RBC Urine 0-2 /hpf (0-2); Specific Grav Ur 1.027 (1.001-1.035); Squamous Epithelial Cell Urine None seen /hpf (Few); Urobilinogen Urine 0.2 mg/dL (<2.0); WBC Urine 0-5 /hpf; pH Urine 6.5 (5.0-9.0)
[2023-01-08 08:08] LABS: Add Urine Microscopic? YES
[2023-01-08] MEDS: LACTATED RINGERS 1,000 ML 125 ML IV CONT (08:21)
[2023-01-08] MEDS: MORPHINE SULFATE (*CRX) 60 MG TABCR PO ×2 (10:19→21:07)
[2023-01-08 10:45] LABS: Hemoglobin A1C 8.3 % (<5.7)
[2023-01-08 12:03] LABS: Glucose Point of Care 236 mg/dl (65-105)
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
[2023-01-08] MEDS: INSULIN ASPART (*BKC) 100 UNITS/ML SUB-Q (12:35)
[2023-01-08] MEDS: PANTOPRAZOLE SODIUM IV 40 MG VIAL IV PUSH ×2 (14:09→21:06)
[2023-01-08] MEDS: GABAPENTIN 300 MG CAPSULE PO ×2 (14:10→17:28)
[2023-01-08] MEDS: PIPERACILLN/TAZ 3.375GM/NS50ML 3.375 GM/50 ML BAG IVPB (14:14)
[2023-01-08] MEDS: METOPROLOL TARTRATE 25 MG TABLET PO ×2 (14:19→21:06)
[2023-01-08 16:45] LABS: Glucose Point of Care 168 mg/dl (65-105)
[2023-01-08 20:29] LABS: Glucose Point of Care 264 mg/dl (65-105)
[2023-01-08] MEDS: LACTATED RINGERS 1,000 ML 75 ML IV CONT (21:07)
[2023-01-09] VITALS (12 sets, daily range): BP systolic 142–167; BP diastolic 62–74; PULSE 64–90; RESP 15–18; TEMP 36.1–36.3; O2SAT 96–98
--- NOTE | 2023-01-09 | ECHO_ITS ---
Patient Info Name: Calvin Flores Age: 57 years : 1965 Gender: Male Ht: 75 in Wt: 224 lbs BSA: 2.33 m2 HR: 60 bpm BP: 167 / 74 mmHg Heart Rhythm: Sinus Rhythm Technical Quality: Fair Exam Date: 01/09/2023 1:51 PM Exam Location: [facility] Patient Status: Outpatient Admit Date: 01/08/2023 Staff Ordering Physician: Rena Choudhary MD Ceo: Chanell Daugherty RDCS Attending Provider: Syl Guardado DO Exam Type: CA echo dop color flow w con Study Info Indications R93.1 - Abnormal findings on diagnostic imaging of heart and coronary circulation Complete two-dimensional, color flow and Doppler transthoracic echocardiogram is performed with contrast to opacify the left ventricle and to improve the deliniation of the left ventricle endocardial borders. Strain analysis performed. Contrast/Agitated Saline Contrast/Ag. Saline: Definity Amount: 2.00 ml Administered By: Chanell Daugherty RDCS Existing IV Access: Yes IV Access Condition: patent with no signs of infiltration Summary 1. Complete two-dimensional, color flow and Doppler transthoracic echocardiogram is performed with contrast to opacify the left ventricle and to improve the deliniation of the left ventricle endocardial borders. 2. Strain analysis performed. 3. Left ventricular chamber dimension is mildly enlarged. 4. There is moderately increased left ventricular wall thickness. 5. Left ventricular systolic function is moderately reduced, estimated at 35-40%. 6. The left ventricular diastolic function is grade I diastolic dysfunction. 7. Global longitudinal strain is abnormal at -8 %. 8. The apex is hypokinetic. 9. Left atrial chamber dimension is mildly enlarged. 10. There is mild aortic valve regurgitation. 11. There is mild aortic valve calcification. 12. The mitral valve has thickened leaflets. 13. There is mild mitral valve regurgitation. 14. The mitral valve annulus is mildly calcified. 15. There is mild tricuspid valve regurgitation. Left Ventricle Left ventricular chamber dimension is mildly enlarged. Left ventricular systolic function is moderately reduced, estimated at 35-40%. There is moderately increased left ventricular wall thickness. The left ventricular diastolic function is grade I diastolic dysfunction. Global longitudinal strain is abnormal at -8 %. The apex is hypokinetic. Right Ventricle Right ventricular chamber dimension is normal. Right ventricular systolic function is normal. Left Atria Left atrial chamber dimension is mildly enlarged. Right Atria Right atrial chamber dimension is normal. Atrial Septum Intact interatrial septum visualized by color flow imaging. Aortic Valve The aortic valve is trileaflet. There is no aortic valve stenosis. There is mild aortic valve regurgitation. There is mild aortic valve calcification. Pulmonic Valve The pulmonic valve is normal. There is no pulmonic valve stenosis. There is trace pulmonic regurgitation. Mitral Valve The mitral valve has thickened leaflets. There is no mitral valve stenosis. There is mild mitral valve regurgitation. The mitral valve annulus is mildly calcified. Tricuspid Valve The tricuspid valve leaflets are normal. There is no significant tricuspid valve stenosis. There is mild tricuspid valve regurgitation. No pulmonary hypertension, estimated pulmonary arterial systolic pressure is 33 mmHg. Pericardium/Pleural The pericardium appears normal. There is no pericardial effusion. Inferior Vena Cava Normal inferior ve
[2023-01-09] MEDS: ENOXAPARIN 40 MG/0.4 ML SYRINGE SUB-Q (08:29)
[2023-01-09] MEDS: CLOPIDOGREL BISULFATE 75 MG TABLET PO (08:29)
[2023-01-09] MEDS: ASPIRIN 81 MG ENTERIC TABLET PO (08:29)
[2023-01-09] MEDS: FLUoxetine HCL 20 MG CAPSULE 80 MG PO (08:30)
[2023-01-09] MEDS: GABAPENTIN 300 MG CAPSULE PO ×3 (08:30→17:34)
[2023-01-09] MEDS: MORPHINE SULFATE (*CRX) 60 MG TABCR PO ×2 (08:31→20:32)
[2023-01-09] MEDS: METOPROLOL TARTRATE 25 MG TABLET PO ×2 (08:31→20:32)
[2023-01-09] MEDS: PHENYTOIN SODIUM 100 MG EXTENDED RELEASE CAP PO (08:32)
[2023-01-09] MEDS: ROSUVASTATIN 10 MG TABLET 40 MG PO (08:32)
[2023-01-09] MEDS: PANTOPRAZOLE SODIUM IV 40 MG VIAL IV PUSH ×2 (08:32→20:32)
[2023-01-09 08:33] LABS: Glucose Point of Care 144 mg/dl (65-105)
--- NOTE | 2023-01-09 11:13 | EST_ITS ---
Patient Info Name: Calvin Flores Age: 57 years : 1965 Gender: Male Ht: 75 in Wt: 224 lbs BSA: 2.33 m2 Exam Date: 01/09/2023 11:33 AM Exam Location: [facility] Stress Patient Status: Inpatient Admit Date: 01/08/2023 Staff Ordering Physician: Rena Choudhary MD Attending Provider: Syl Guardado DO Exercise Technologist: Chanell Daugherty RDCS Exercise Physician: Omer Earl MD Exam Type: CA stress heather w NM Study Info Indications Z01.810 - Encounter for preprocedural cardiovascular examination R94.31 - Abnormal electrocardiogram ECG EKG A regadenoson stress test was performed. Summary 1. Please correlate with nuclear medicine images, reported separately. 2. No abnormal ST-T wave changes with lexiscan. 3. Stress test is personally supervised and interpreted by Dr. Omer Earl. Protocol: Lexiscan Stress ECG Details Stage: REST Duration (min): 2 min : 30 sec HR (bpm): 57 SBP (mmHg): 182 DBP (mmHg): 71 Stage: REST Duration (min): 6 min : 27 sec HR (bpm): 57 SBP (mmHg): 182 DBP (mmHg): 71 Stage: STAGE 1 Duration (min): 1 min : 0 sec HR (bpm): 58 SBP (mmHg): 134 DBP (mmHg): 61 Stage: RECOVERY Duration (min): 1 min : 0 sec HR (bpm): 72 SBP (mmHg): 124 DBP (mmHg): 60 Stage: RECOVERY Duration (min): 2 min : 0 sec HR (bpm): 71 SBP (mmHg): 124 DBP (mmHg): 60 Stage: RECOVERY Duration (min): 3 min : 0 sec HR (bpm): 70 SBP (mmHg): 141 DBP (mmHg): 60 Stage: RECOVERY Duration (min): 3 min : 3 sec HR (bpm): 70 SBP (mmHg): 141 DBP (mmHg): 60 Rest HR: 57 bpm Peak HR: 73 bpm Rest Sys BP: 182 mmHg Peak Sys BP: 141 mmHg Max Pred HR: 161 bpm % Max Pred HR: 45 % Target HR: 137 bpm Max RPP: 10,293 bpm*mmHg BP Response: Normal blood pressure response Termination Reason: Completed protocol Cardiac Symptoms: None Total Time: 1 min : 0 sec Rest Miller BP: 71 mmHg Peak Miller BP: 60 mmHg Total Dose: 0.4 mg Resting ECG Normal sinus rhythm. Cannot rule out inferior and anterolateral myocardial infarction, old: PVCs. Stress ECG No abnormal ST/T wave changes with exercise. Arrhythmias Occasional PVCs. Report Signatures
--- NOTE | 2023-01-09 11:42 | PC.NURSE ---
Dr Choudhary notified of holding am 70/30 insulin due to npo
[2023-01-09 12:42] LABS: Glucose Point of Care 159 mg/dl (65-105)
[2023-01-09 13:27] LABS: Hematocrit 43.3 % (42.0-52.0); Hemoglobin 14.5 g/dL (14.0-18.0); Mean Corpuscular HGB Conc 33.5 g/dl (32-36); Mean Corpuscular Hemoglobin 31.4 pg (26-34); Mean Corpuscular Volume 93.7 fl (80-100); Mean Platelet Volume 11.1 fl (7.4-10.4); Platelet Count Result 203 k/mm3 (150-375); Red Blood Count 4.62 M/mm3 (4.6-6.20); Red Cell Distribution Width 13.7 % (11.5-14.5); White Blood Count 10.1 K/mm3 (4.5-10.0)
[2023-01-09 13:35] LABS: Anion Gap 4 mmol/L (8-16); Blood Urea Nitrogen 21 mg/dL (9-20); Carbon Dioxide 29 mmol/L (22-30); Chloride 103 mmol/L (98-107); Estimated CRCL calculation 57 ml/min; Estimated Glomerular Filt Rate 48; Glucose 172 mg/dL (65-110); Magnesium 2.1 mg/dL (1.6-2.3); Potassium 3.3 mmol/L (3.4-5.0); Sodium 136 mmol/L (137-145)
[2023-01-09] MEDS: PERFLUTREN LIPID MICROSPHERES 1.5 ML VIAL DILUTED TO 10 ML TOTAL VOLUME IV PUSH (14:25)
--- NOTE | 2023-01-09 14:56 | WPDPN ---
Progress Note: A&P Assessment and Plan (1) Nausea & vomiting: Code(s): R11.2 - Nausea with vomiting, unspecified Status: Acute Assessment and Plan: ED-[facility] narrative: ?this is a 57-year-old male presenting to the ED with chief complaint of nausea vomiting and diarrhea x4 days.? Patient has had decreased oral intake.? He stops making urine 2 days ago. ? symptoms are associated with an achy abdominal pain throughout his abdomen that is 8/10 intensity and constant.? He has never had pain like this before.? patient denies fever, chills, chest pain difficulty breathing. 01/09/2023 interval history: [id number] is a 57-year-old male with history of diabetes, hypertension carotid artery stenosis presented emergency depart with complaint of abdominal pain nausea unable to take p.o. persisting for last 2 days and getting progressively worse unable to take p.o. as symptoms his worsening patient presented emergency department for further evaluation, patient is found to have elevated BUN and creatinine most likely secondary to dehydration due to poor p.o. intake, CT scan of the abdomen showed uestionable gastritis/duodenitis. Correlate clinically. Consider infection or peptic ulcer disease. Possible mild urinary bladder wall thickening. Correlate with urinalysis and symptomatology for cystitis. Patient also has elevated white count etiology uncertain possibly cystitis, started the patient on Zosyn and will do the blood culture however urine is clean, patient with elevated blood pressure apparently patient has not had is home blood pressure medication for sometime started the patient metoprolol 25 mg b.i.d., will hold lisinopril and spironolactone as patient's serum creatinine is elevate, patient has severe bilateral carotid stenosis is scheduled for endarterectomy at [facility] and required Lexiscan to further evaluate, patient had Lexiscan today showed severe cardiomyopathy will consult Cardiology for further recommendation, will continue to monitor further recommendation to follow. (2) Hypertension: Code(s): I10 - Essential (primary) hypertension Status: Acute Assessment and Plan: Apparently patient has not his home medication for some will resume metoprolol and lower dose of 25 mg b.i.d. and home lisinopril and spironolactone (3) Acute dehydration: Code(s): E86.0 - Dehydration Status: Acute Assessment and Plan: Most likely secondary abdominal pain nausea or vomiting diarrhea and poor p.o. intake will gently hydrate the patient and monitor (4) Renal insufficiency: Code(s): N28.9 - Disorder of kidney and ureter, unspecified Status: Acute Assessment and Plan: Most likely secondary abdominal pain nausea or vomiting diarrhea and poor p.o. intake will gently hydrate the patient and monitor kidney function. Subjective Date/time seen: 01/09/23 14:56 Interval history: ED-HPI narrative: ?this is a 57-year-old male presenting to the ED with chief complaint of nausea vomiting and diarrhea x4 days.? Patient has had decreased oral intake.? He stops making urine 2 days ago. ? symptoms are associated with an achy abdominal pain throughout his abdomen that is 8/10 intensity and constant.? He has never had pain like this before.? patient denies fever, chills, chest pain difficulty breathing. 01/09/2023 interval history: [id number] is a 57-year-old male with history of diabetes, hypertension carotid artery stenosis presented emergency depart with complaint of abdominal pain nausea unable to take p.o. persisting for last 2 days and getting progressively worse unable to take p.o. as symptoms his worsening patient presented emergency department for further evaluation, patient is found to have elevated BUN and creatinine most likely secondary to dehydration due to poor p.o. intake, CT scan of the abdomen showed uestionable gastritis/duodenitis. Correlate clinically. Consider infection or peptic ulcer disease. Possible m
[2023-01-09] MEDS: POTASSIUM CHLORIDE 20 MEQ TABLET 40 MEQ PO (15:18)
--- NOTE | 2023-01-09 16:26 | PM.CNCAR ---
Assessment and Plan Assessment and plan (1) Abnormal stress test: Code(s): R94.39 - Abnormal result of other cardiovascular function study Status: Acute (2) Cardiomyopathy: Code(s): I42.9 - Cardiomyopathy, unspecified Status: Acute (3) Coronary artery disease: Code(s): I25.10 - Atherosclerotic heart disease of [place] coronary artery without angina pectoris Status: Acute (4) Hypertension: Code(s): I10 - Essential (primary) hypertension Status: Acute Plan This is a 56-year-old male with a history of CAD s/p CABG, hypertension, hyperlipidemia, type 2 diabetes, peripheral vascular disease, hepatitis C, recent stroke in October 2022, carotid artery disease, cardiomyopathy with LVEF of 35-40% (previously EF was 55-60% in 10/2020). Patient is admitted to the hospital for nausea, vomiting, and diarrhea. Lexiscan was done today as patient has severe carotid artery disease and patient is undergoing evaluation for carotid endarterectomy to be done at [facility]. Per hospitalist, a Lexiscan was required for further evaluation as part of his surgical evaluation. Lexiscan shows large area of severe infarct involving the left ventricular apex, apical to mid anterior wall, apical septal segment, and inferior wall. LVEF 30%. Patient does not have any cardiac symptoms at this time. Given no anginal symptoms and no reversible ischemia on stress test, will medically treat rather than pursue invasive workup at this time. Patient has been started on Metoprolol. Recommend to switch his Metoprolol tartrate to succinate prior to discharge as only the succinate form is indicated in patients with reduced ejection fraction. His home Lisinopril and Spironolactone have been on hold due to PATRICIA. Resume when his PATRICIA has resolved. Will arrange for outpatient follow-up with Dr. Mccabe. History of Present Illness History of Present Illness Consult date/time: 01/09/23 16:26 Requesting physician: Rena Choudhary MD Consult reason: Other (Abnormal stress test) Reason For Visit: n/v/d Narrative: We are consulted for abnormal stress test. This is a 56-year-old male with a history of CAD s/p CABG, hypertension, hyperlipidemia, type 2 diabetes, peripheral vascular disease, hepatitis C. Patient was admitted to [facility] in October 2022 for an acute stroke. Brain MRI showed scattered acute infarcts involving the bilateral frontal, parietal, and occipital lobes and left temporal lobe with subacute infarcts of the right frontal lobe and left parietal lobes. NOEMY done during that hospitalization showed no intracardiac thrombus. LVEF noted to be 35-40%. Head and neck CTA also showed near complete occlusion of the proximal ISACC. Patient follows with Dr. Mccabe in the clinic, but has not seem him since 2020. Patient is now admitted to the hospital for nausea, vomiting, and diarrhea for the past couple of days, started on Friday. Has not been able to tolerate oral intake since then. Not able to take his home medications due to this. Today was the first day that he was able to eat a solid meal. No fevers, chills, chest pain, or shortness of breath. Noted to have PATRICIA on admission. CT showed possible gastritis/duodenitis. Patient states he is feeling better since admission. Lexiscan was done today as patient has severe carotid artery disease and patient is undergoing evaluation for carotid endarte[facility] to be done [facility]. Per hospitalist, a Lexiscan was required for further evaluation as part of his surgical evaluation. Lexiscan shows large area of severe infarct involving the left ventricular apex, apical to mid anterior wall, apical septal segment, and inferior wall. LVEF 30%. Patient has been started on Metoprolol. His home Lisinopril and Spironolactone have been on hold due to PATRICIA. Patient denies any chest pain, shortness of breath, palpitations or other cardiac symptoms prior to admission. Review of Systems Review of Systems:
[2023-01-09 17:32] LABS: Glucose Point of Care 239 mg/dl (65-105)
[2023-01-09] MEDS: INSULIN ASPART (*BKC) 100 UNITS/ML SUB-Q ×2 (17:34→21:36)
[2023-01-09 20:32] LABS: Glucose Point of Care 306 mg/dl (65-105)
[2023-01-09] MEDS: BENZOCAINE/MENTHOL (*BKC) 18 EA LOZENGE 1 LOZENGE PO (21:36)
[2023-01-10] VITALS (10 sets, daily range): BP systolic 144–159; BP diastolic 64–70; PULSE 57–75; RESP 17–20; TEMP 36.1–36.5; O2SAT 99–100
[2023-01-10 08:31] LABS: Glucose Point of Care 160 mg/dl (65-105)
[2023-01-10] MEDS: METOPROLOL TARTRATE 25 MG TABLET PO (08:31)
[2023-01-10] MEDS: FLUoxetine HCL 20 MG CAPSULE 80 MG PO (08:31)
[2023-01-10] MEDS: CLOPIDOGREL BISULFATE 75 MG TABLET PO (08:31)
[2023-01-10] MEDS: ASPIRIN 81 MG ENTERIC TABLET PO (08:31)
[2023-01-10] MEDS: GABAPENTIN 300 MG CAPSULE PO ×3 (08:31→17:04)
[2023-01-10] MEDS: ENOXAPARIN 40 MG/0.4 ML SYRINGE SUB-Q (08:31)
[2023-01-10] MEDS: PANTOPRAZOLE SODIUM IV 40 MG VIAL IV PUSH ×2 (08:32→20:20)
[2023-01-10] MEDS: ROSUVASTATIN 10 MG TABLET 40 MG PO (08:32)
[2023-01-10] MEDS: PHENYTOIN SODIUM 100 MG EXTENDED RELEASE CAP PO (08:32)
[2023-01-10] MEDS: MORPHINE SULFATE (*CRX) 60 MG TABCR PO ×2 (08:32→20:20)
[2023-01-10] MEDS: INSULIN HUMAN ISOPHAN/REGULAR 70/30 (*BKC) 100 UNITS/ML 15 UNITS SUB-Q (08:34)
[2023-01-10 10:38] LABS: Hematocrit 43.2 % (42.0-52.0); Hemoglobin 14.3 g/dL (14.0-18.0); Mean Corpuscular HGB Conc 33.1 g/dl (32-36); Mean Corpuscular Hemoglobin 31.4 pg (26-34); Mean Corpuscular Volume 94.9 fl (80-100); Mean Platelet Volume 11.3 fl (7.4-10.4); Platelet Count Result 213 k/mm3 (150-375); Red Blood Count 4.55 M/mm3 (4.6-6.20); Red Cell Distribution Width 13.6 % (11.5-14.5); White Blood Count 8.3 K/mm3 (4.5-10.0)
[2023-01-10 10:54] LABS: Alanine Aminotransferase 35 U/L (6-50); Albumin Level 3.3 g/dL (3.5-5.1); Alkaline Phosphatase 136 U/L (38-126); Anion Gap 7 mmol/L (8-16); Aspartate Amino Transferase 42 U/L (17-59); Bilirubin,Total 0.4 mg/dL (0.2-1.3); Blood Urea Nitrogen 19 mg/dL (9-20); Calcium 7.9 mg/dL (8.4-10.2); Carbon Dioxide 26 mmol/L (22-30); Chloride 101 mmol/L (98-107); Estimated CRCL calculation 61 ml/min; Estimated Glomerular Filt Rate 52; Glucose 201 mg/dL (65-110); Magnesium 2.1 mg/dL (1.6-2.3); Potassium 3.6 mmol/L (3.4-5.0); Sodium 134 mmol/L (137-145)
[2023-01-10 10:55] LABS: Troponin I 0.016 ng/mL (0.000-0.034)
[2023-01-10 12:08] LABS: Glucose Point of Care 188 mg/dl (65-105)
--- NOTE | 2023-01-10 13:12 | WPDPN ---
Progress Note: A&P Assessment and Plan (1) Nausea & vomiting: Code(s): R11.2 - Nausea with vomiting, unspecified Status: Acute Assessment and Plan: ED-HPI narrative: ?this is a 57-year-old male presenting to the ED with chief complaint of nausea vomiting and diarrhea x4 days.? Patient has had decreased oral intake.? He stops making urine 2 days ago. ? symptoms are associated with an achy abdominal pain throughout his abdomen that is 8/10 intensity and constant.? He has never had pain like this before.? patient denies fever, chills, chest pain difficulty breathing. 01/10/2023 interval history: [id number] is a 57-year-old male with history of diabetes, hypertension carotid artery stenosis presented emergency depart with complaint of abdominal pain nausea unable to take p.o. persisting for last 2 days and getting progressively worse unable to take p.o. as symptoms his worsening patient presented emergency department for further evaluation, patient is found to have elevated BUN and creatinine most likely secondary to dehydration due to poor p.o. intake, CT scan of the abdomen showed uestionable gastritis/duodenitis. Correlate clinically. Consider infection or peptic ulcer disease. Possible mild urinary bladder wall thickening. Correlate with urinalysis and symptomatology for cystitis. Patient also has elevated white count etiology uncertain possibly cystitis, started the patient on Zosyn and will do the blood culture however urine is clean, patient with elevated blood pressure apparently patient has not had is home blood pressure medication for sometime started the patient metoprolol 25 mg b.i.d., will hold lisinopril and spironolactone as patient's serum creatinine is elevate, patient has severe bilateral carotid stenosis is scheduled for endarterectomy at [facility] and required Lexiscan to further evaluate, patient had Lexiscan on 01/09 showed severe cardiomyopathy seen by cardiology since patient did not have significant chest pain cardiology recommended medical management however today patient complains of chest and wants to see online activist for further evaluation with the trops and first trops was negative will reconsult Cardiology and further recommendation to (2) Hypertension: Code(s): I10 - Essential (primary) hypertension Status: Acute Assessment and Plan: Apparently patient has not his home medication for some will resume metoprolol and lower dose of 25 mg b.i.d. and home lisinopril and spironolactone (3) Acute dehydration: Code(s): E86.0 - Dehydration Status: Acute Assessment and Plan: Most likely secondary abdominal pain nausea or vomiting diarrhea and poor p.o. intake will gently hydrate the patient and monitor (4) Renal insufficiency: Code(s): N28.9 - Disorder of kidney and ureter, unspecified Status: Acute Assessment and Plan: Most likely secondary abdominal pain nausea or vomiting diarrhea and poor p.o. intake will gently hydrate the patient and monitor kidney function. Subjective Date/time seen: 01/10/23 13:12 Interval history: ED-HPI narrative: ?this is a 57-year-old male presenting to the ED with chief complaint of nausea vomiting and diarrhea x4 days.? Patient has had decreased oral intake.? He stops making urine 2 days ago. ? symptoms are associated with an achy abdominal pain throughout his abdomen that is 8/10 intensity and constant.? He has never had pain like this before.? patient denies fever, chills, chest pain difficulty breathing. 01/10/2023 interval history: [id number] is a 57-year-old male with history of diabetes, hypertension carotid artery stenosis presented emergency depart with complaint of abdominal pain nausea unable to take p.o. persisting for last 2 days and getting progressively worse unable to take p.o. as symptoms his worsening patient presented emergency department for further evaluation, patient is found to have elevated BUN and creatinine most lik
--- NOTE | 2023-01-10 14:27 | PM.PNCARD ---
Progress Note: A&P Assessment and Plan (1) Abnormal stress test: Code(s): R94.39 - Abnormal result of other cardiovascular function study Status: Acute (2) CAD (coronary artery disease) of artery bypass graft: Qualifiers: [place] vs. transplanted heart: [place] heart Associated angina: without angina Qualified Code(s): I25.810 - Atherosclerosis of coronary artery bypass graft(s) without angina pectoris Code(s): I25.810 - Atherosclerosis of coronary artery bypass graft(s) without angina pectoris Status: Chronic Plan 57-year-old man with chronic coronary artery disease stable asymptomatic ischemic LV dysfunction with 2 previous MIs per his history. He is not having any ischemic symptoms and his nuclear stress test does not show any ischemic burden. Patient does not therefore require any additional cardiac testing for his asymptomatic coronary disease prior to percutaneous stenting of his symptomatic carotid artery disease. We will arrange for ongoing follow-up of his coronary disease in our office following discharge from [place]. I have transitioned his beta-vera to metoprolol succinate and resumed his lisinopril at 20 mg per day and spironolactone prior to discharge. The patient does have chronic kidney disease but in my opinion this appears to be stable and is not a reason to withhold guideline directed medical therapy. Jacky Mccabe MD [facility] Subjective Date/time seen: date of service: 01/10/23 14:27 Interval history: Follow-up visit in this 57-year-old man with: Coronary artery disease previous [place] x2 and previous CABG. Patient admitted to the hospital with nausea, painful swallowing and some diarrhea. Apparently while he is here a Lexiscan nuclear stress test was done as it is recommended/ required by his physicians at [facility] prior to upcoming right carotid stent procedure. Procedure was done and demonstrates previous infarction and ischemic LV dysfunction but no significant ischemic burden was identified. He does have chronic kidney disease as well although from my review the chart this appears to be quite stable at the moment his LIDA-inhibitor and spironolactone are on hold Exam Const: General: comfortable and no acute distress HENMT: Mouth: Yes moist mucous membranes Eyes: Sclera: sclerae normal Neck: Neck: supple and no JVD Other: carotid pulses are intact bilaterally Resp: Effort & Inspection: normal respiratory effort Auscultation: clear to auscultation bilaterally Cardio: Rate: regular rate Rhythm: regular rhythm GI: GI Palp: Yes Soft to palpation Auscultation: normal bowel sounds Skin: General skin exam: normal color Neuro: Other: alert and oriented x3 Extrem: Other: absent right lower extremity /traumatic amputation Objective Data Vital Signs Vital Signs: Vital Signs - 24 hr 01/09/23 14:50 01/09/23 16:00 01/09/23 19:46 Temperature 36.1 C L 36.3 C L Pulse Rate 76 74 90 Respiratory Rate 18 17 Blood Pressure 142/66 H 153/62 H Pulse Oximetry 98 96 Oxygen Delivery 01/09/23 20:32 01/09/23 20:00 01/09/23 23:24 Temperature Pulse Rate 90 Respiratory Rate Blood Pressure Pulse Oximetry 96 Oxygen Delivery Room Air Room Air 01/09/23 20:00 01/10/23 00:00 01/10/23 04:00 Temperature Pulse Rate 79 75 57 L Respiratory Rate Blood Pressure Pulse Oximetry Oxygen Delivery 01/10/23 04:39 01/10/23 08:00 01/10/23 08:31 Temperature 36.1 C L Pulse Rate 61 73 Respiratory Rate 17 Blood Pressure 159/65 H Pulse Oximetry 99 99 Oxygen Delivery Room Air 01/10/23 08:00 01/10/23 12:00 Temperature Pulse Rate 71 64 Respiratory Rate Blood Pressure Pulse Oximetry Oxygen Delivery Intake/Output Intake/Output: Intake & Output 01/07/23 01/08/23 01/09/23 01/10/23 23:59 23:59 23:59 23:59 Intake Total 3540 990 460 Output Total 1350 7
[2023-01-10 17:08] LABS: Glucose Point of Care 175 mg/dl (65-105)
[2023-01-10 20:58] LABS: Glucose Point of Care 221 mg/dl (65-105)
[2023-01-11] VITALS (9 sets, daily range): BP systolic 115–160; BP diastolic 48–65; PULSE 63–89; RESP 14–20; TEMP 36.6–36.7; O2SAT 96–100
[2023-01-11] MEDS: ONDANSETRON INJ 4 MG/2 ML VIAL IV PUSH (06:31)
[2023-01-11 07:04] LABS: Anion Gap 7 mmol/L (8-16); Blood Urea Nitrogen 18 mg/dL (9-20); Calcium 8.5 mg/dL (8.4-10.2); Carbon Dioxide 29 mmol/L (22-30); Chloride 101 mmol/L (98-107); Estimated CRCL calculation 61 ml/min; Estimated Glomerular Filt Rate 52; Glucose 168 mg/dL (65-110); Potassium 3.7 mmol/L (3.4-5.0); Sodium 137 mmol/L (137-145)
[2023-01-11 07:12] LABS: Hematocrit 44.7 % (42.0-52.0); Hemoglobin 15.2 g/dL (14.0-18.0); Mean Corpuscular Hemoglobin 31.2 pg (26-34); Mean Corpuscular Volume 91.8 fl (80-100); Mean Platelet Volume 11.4 fl (7.4-10.4); Platelet Count Result 248 k/mm3 (150-375); Red Blood Count 4.87 M/mm3 (4.6-6.20); Red Cell Distribution Width 13.3 % (11.5-14.5); White Blood Count 8.9 K/mm3 (4.5-10.0)
[2023-01-11 08:55] LABS: Glucose Point of Care 192 mg/dl (65-105)
--- NOTE | 2023-01-11 09:10 | PM.PNCARD ---
Progress Note: A&P Assessment and Plan (1) Abnormal stress test: Code(s): R94.39 - Abnormal result of other cardiovascular function study Status: Acute Assessment and Plan: Continue dual anti-platelet therapy, statin and metoprolol. Personally reviewed and hemoglobin stable (2) CAD (coronary artery disease) of artery bypass graft: Qualifiers: [place] vs. transplanted heart: [place] heart Associated angina: without angina Qualified Code(s): I25.810 - Atherosclerosis of coronary artery bypass graft(s) without angina pectoris Code(s): I25.810 - Atherosclerosis of coronary artery bypass graft(s) without angina pectoris Status: Chronic Assessment and Plan: As detailed above Plan 57-year-old man with chronic coronary artery disease stable asymptomatic ischemic LV dysfunction with 2 previous MIs per his history. He is not having any ischemic symptoms and his nuclear stress test does not show any ischemic burden. Patient does not therefore require any additional cardiac testing for his asymptomatic coronary disease prior to percutaneous stenting of his symptomatic carotid artery disease. We will arrange for ongoing follow-up of his coronary disease in our office following discharge from [place]. I have transitioned his beta-vera to metoprolol succinate and resumed his lisinopril at 20 mg per day and spironolactone prior to discharge. Subjective Date/time seen: 01/11/23 09:10 Interval history: Follow-up visit in this 57-year-old man with: Coronary artery disease previous [place] x2 and previous CABG. Patient admitted to the hospital with nausea, painful swallowing and some diarrhea. Apparently while he is here a Lexiscan nuclear stress test was done as it is recommended/ required by his physicians at [facility] prior to upcoming right carotid stent procedure. Procedure was done and demonstrates previous infarction and ischemic LV dysfunction but no significant ischemic burden was identified. He does have chronic kidney disease as well although from my review the chart this appears to be quite stable at the moment his LIDA-inhibitor and spironolactone are on hold Date of service 01/11/2023: Resting in bed without complaints of chest pain or shortness breath Review of Systems Review of Systems: All systems reviewed & are unremarkable except as noted in HPI and below (HPI) Cardiovascular: Comments: Chest Respiratory: Comments: Shortness breath Exam Const: General: comfortable and no acute distress Other: Appears older than stated age HENMT: Mouth: Yes moist mucous membranes and Yes dry mucous membranes Eyes: General: appearance normal, both eyes and all related structures Sclera: sclerae normal Neck: Neck: supple and no JVD Other: carotid pulses are intact bilaterally Resp: Effort & Inspection: normal respiratory effort Auscultation: clear to auscultation bilaterally Cardio: Rate: regular rate Rhythm: regular rhythm Heart sounds: no murmurs GI: Auscultation: normal bowel sounds Skin: General skin exam: normal color Neuro: Speech: normal speech Other: alert and oriented x3 Extrem: Other: absent right lower extremity /traumatic amputation Psych: Mental Status: mental status grossly normal Affect: normal affect Objective Data Vital Signs Vital Signs: Vital Signs - 24 hr 01/10/23 12:00 01/10/23 14:05 01/10/23 16:00 Temperature 36.4 C Pulse Rate 64 58 L 58 L Respiratory Rate 18 Blood Pressure 144/64 H Pulse Oximetry 99 Oxygen Delivery 01/10/23 20:15 01/10/23 20:00 01/10/23 20:00 Temperature 36.5 C Pulse Rate 66 62 66 Respiratory Rate 20 20 Blood Pressure 154/70 H Pulse Oximetry 100 100 Oxygen Delivery Room Air 01/11/23 00:00 01/11/23 04:00 01/11/23 05:21 Temperature 36.6 C Pulse Rate 67 85 89 Respiratory Rate 20 Blood Pressure 115/48 L Pulse Oximetry
[2023-01-11] MEDS: PANTOPRAZOLE SODIUM IV 40 MG VIAL IV PUSH (09:17)
[2023-01-11] MEDS: BENZOCAINE/MENTHOL (*BKC) 18 EA LOZENGE 1 LOZENGE PO (09:17)
[2023-01-11] MEDS: ASPIRIN 81 MG ENTERIC TABLET PO (09:18)
[2023-01-11] MEDS: FLUoxetine HCL 20 MG CAPSULE 80 MG PO (09:18)
[2023-01-11] MEDS: PHENYTOIN SODIUM 100 MG EXTENDED RELEASE CAP PO (09:18)
[2023-01-11] MEDS: GABAPENTIN 300 MG CAPSULE PO ×2 (09:18→12:33)
[2023-01-11] MEDS: ENOXAPARIN 40 MG/0.4 ML SYRINGE SUB-Q (09:18)
[2023-01-11] MEDS: INSULIN HUMAN ISOPHAN/REGULAR 70/30 (*BKC) 100 UNITS/ML 15 UNITS SUB-Q (09:18)
[2023-01-11] MEDS: ROSUVASTATIN 10 MG TABLET 40 MG PO (09:19)
[2023-01-11] MEDS: lisinopriL 20 MG TABLET PO (09:19)
[2023-01-11] MEDS: METOPROLOL SUCCINATE EXT REL 50 MG TABCR PO (09:19)
[2023-01-11] MEDS: SPIRONOLACTONE 25 MG TABLET PO (09:20)
[2023-01-11] MEDS: CLOPIDOGREL BISULFATE 75 MG TABLET PO (09:20)
[2023-01-11] MEDS: MORPHINE SULFATE (*CRX) 60 MG TABCR PO (09:25)
[2023-01-11] MEDS: polyethylene glycoL 3350 17 GM POWD.PACK PO (10:51)
[2023-01-11] MEDS: DOCUSATE SODIUM 100 MG CAPSULE PO (10:51)
[2023-01-11 12:07] LABS: Glucose Point of Care 101 mg/dl (65-105)
--- NOTE | 2023-01-11 15:03 | PM.DS ---
DS: Admitting Diagnosis Discharge Date 01/11/2023 Admitting Diagnosis Abdominal pain nausea vomiting and diarrhea DS: Discharge Diagnosis Discharge Diagnosis (1) Nausea & vomiting: Code(s): R11.2 - Nausea with vomiting, unspecified Status: Acute Assessment and Plan: [facility] narrative: ?this is a 57-year-old male presenting to the ED with chief complaint of nausea vomiting and diarrhea x4 days.? Patient has had decreased oral intake.? He stops making urine 2 days ago. ? symptoms are associated with an achy abdominal pain throughout his abdomen that is 8/10 intensity and constant.? He has never had pain like this before.? patient denies fever, chills, chest pain difficulty breathing. 01/10/2023 interval history: [id number] is a 57-year-old male with history of diabetes, hypertension carotid artery stenosis presented emergency depart with complaint of abdominal pain nausea unable to take p.o. persisting for last 2 days and getting progressively worse unable to take p.o. as symptoms his worsening patient presented emergency department for further evaluation, patient is found to have elevated BUN and creatinine most likely secondary to dehydration due to poor p.o. intake, CT scan of the abdomen showed uestionable gastritis/duodenitis. Correlate clinically. Consider infection or peptic ulcer disease. Possible mild urinary bladder wall thickening. Correlate with urinalysis and symptomatology for cystitis. Patient also has elevated white count etiology uncertain possibly cystitis, started the patient on Zosyn and will do the blood culture however urine is clean, patient with elevated blood pressure apparently patient has not had is home blood pressure medication for sometime started the patient metoprolol 25 mg b.i.d., will hold lisinopril and spironolactone as patient's serum creatinine is elevate, patient has severe bilateral carotid stenosis is scheduled for endarterectomy at [facility] and required Lexiscan to further evaluate, patient had Lexiscan on 01/09 showed severe cardiomyopathy seen by cardiology since patient did not have significant chest pain cardiology recommended medical management however today patient complains of chest and wants to see electromechanical inspector for further evaluation with the trops and first trops was negative will reconsult Cardiology and further recommendation to (2) Hypertension: Code(s): I10 - Essential (primary) hypertension Status: Acute Assessment and Plan: Apparently patient has not his home medication for some will resume metoprolol and lower dose of 25 mg b.i.d. and home lisinopril and spironolactone (3) Acute dehydration: Code(s): E86.0 - Dehydration Status: Acute Assessment and Plan: Most likely secondary abdominal pain nausea or vomiting diarrhea and poor p.o. intake will gently hydrate the patient and monitor (4) Renal insufficiency: Code(s): N28.9 - Disorder of kidney and ureter, unspecified Status: Acute Assessment and Plan: Most likely secondary abdominal pain nausea or vomiting diarrhea and poor p.o. intake will gently hydrate the patient and monitor kidney function. DS: Summary Hospital Course Reason for hospitalization: Abdominal pain nausea vomiting and diarrhea Narrative: ED-HPI narrative: ?this is a 57-year-old male presenting to the ED with chief complaint of nausea vomiting and diarrhea x4 days.? Patient has had decreased oral intake.? He stops making urine 2 days ago. ? symptoms are associated with an achy abdominal pain throughout his abdomen that is 8/10 intensity and constant.? He has never had pain like this before.? patient denies fever, chills, chest pain difficulty breathing.? Patient is a 57-year-old male with history of diabetes, hypertension carotid artery stenosis presented emergency depart with complaint of abdominal pain nausea unable to take p.o. persisting for last 2 days and getting progressively worse unable to take p.o. as symp
== END 2023-01-11 16:35 | disposition home or self-care (01) ==
LOC: ANHED 07:15 → ANH2MED 08:10
PROVIDERS: Internal Medicine; Admitting Provider Family Medicine; Emergency Provider Emergency Medicine; PCP Family Medicine; Visit Provider Family Medicine
DX: R11.2 Nausea with vomiting, unspecified (principal); I11.0 Hypertensive heart disease with heart failure; I50.9 Heart failure, unspecified; E86.0 Dehydration; N28.9 Disorder of kidney and ureter, unspecified; I21.9 Acute myocardial infarction, unspecified; I42.9 Cardiomyopathy, unspecified; R63.0 Anorexia; Z20.822 Contact with and (suspected) exposure to COVID-19; R33.9 Retention of urine, unspecified; R10.9 Unspecified abdominal pain; F41.9 Anxiety disorder, unspecified; I25.810 Atherosclerosis of coronary artery bypass graft(s) without angina pectoris; E78.5 Hyperlipidemia, unspecified; D72.829 Elevated white blood cell count, unspecified; M19.09 Primary osteoarthritis, other specified site; E11.42 Type 2 diabetes mellitus with diabetic polyneuropathy; I65.29 Occlusion and stenosis of unspecified carotid artery; R94.39 Abnormal result of other cardiovascular function study; I73.9 Peripheral vascular disease, unspecified; I08.3 Combined rheumatic disorders of mitral, aortic and tricuspid valves; R94.31 Abnormal electrocardiogram [ECG] [EKG]; Z98.62 Peripheral vascular angioplasty status; E55.9 Vitamin D deficiency, unspecified; F32.A Depression, unspecified; B18.2 Chronic viral hepatitis C; Z87.891 Personal history of nicotine dependence; Z79.82 Long term (current) use of aspirin; Z79.01 Long term (current) use of anticoagulants; Z79.4 Long term (current) use of insulin; Z79.891 Long term (current) use of opiate analgesic; Z79.84 Long term (current) use of oral hypoglycemic drugs; Z79.899 Other long term (current) drug therapy
CPT/HCPCS: 36415; 71045; 74018; 74177; 78452; 80048; 80053; 81001; 82948; 83036; 83690; 83735; 84484; 85025; 85027; 87040; 87637; 93005; 93017; 96361; 96372; 96374; 96375; 96376; 99285; A9270; A9502; C8929; C9113; G0378; J0360; J1650; J1815; J2405; J2543; J2785; J7030; J7120; Q9957; Q9967

== ENCOUNTER 2023-01-25 16:50 | Emergency (ER) | payer MEDICARE, SELFPAY ==
[2023-01-25] VITALS (19 sets, daily range): BP systolic 191–231; BP diastolic 87–171; PULSE 100–120; RESP 16–22; TEMP 36.9; O2SAT 96–100
--- NOTE | ~2023-01-25 | XR_ITS ---
Portable chest x-ray Comparison: 01/08/2023 Clinical History: Tachycardia Findings: Lungs are clear, without focal consolidation or pleural effusion. Cardiomediastinal silho uette is stable. Postoperative changes in the mediastinum are stable from prior exam. Bones and soft tissues are unremarkable. Impression: Clear lungs. Evidence of prior cardiac surgery, unchanged. Reviewed, dictated and finalized at location . Impression: Clear lungs. Evidence of prior cardiac surgery, unchanged.
--- NOTE | ~2023-01-25 | CT_ITS ---
CT of the Abdomen and Pelvis: Indication: Abdominal pain Technique: 2.5 mm axial scans were obtained through the abdomen and pelvis following intravenous adm inistration of 100 cc of Omnipaque 350. Dose reduction technique was used on this scan by utilizing a utomated exposure control and iterative reconstruction technique. The dose-length product (DLP) was 7 13.48 mGy-cm. COMPARISON: 01/08/2023 Findings: Scans through the lung bases are unremarkable. The liver, spleen, pancreas, gallbladder, adrenals and kidneys are within normal limits. There are at herosclerotic calcifications of the aorta. No lymphadenopathy. Again noted is questionable mild wall thickening of the gastric antrum/proximal duodenum. Images through the pelvis were performed. Probable urinary bladder wall thickening present. Prostate gland and seminal vesicles are unremarkable. No ascites. Large area of heterotopic ossification at th e left hip region is unchanged. Impression: Possible mild wall thickening of the gastric antrum/proximal duodenum, similar to prior exam. Again, correlation for peptic ulcer disease or duodenitis. Consider nonspecific. As indicated. Possible urinary bladder wall thickening. Correlate for cystitis. Reviewed, dictated and finalized at location . Impression: Possible mild wall thickening of the gastric antrum/proximal duodenum, similar to prior exam. Again, correlation for peptic ulcer disease or duodenitis. Consi meenakshi nonspecific. As indicated. Possible urinary bladder wall thickening. Correlate for cystitis.
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
--- NOTE | 2023-01-25 17:19 | ECG_ITS ---
Measurements Intervals [place] Rate: 106 P: ME: 0 QRS: 24 QRSD: 86 T: 91 QT: 344 QTc: 457 Interpretive Statements SINUS TACHYCARDIA POSSIBLE LEFT ATRIAL ENLARGEMENT PROBABLY OLD INFERIOR INFARCTION COMPARED TO ECG 01/08/2023 06:49:37 NO SIGNIFICANT CHANGES Electronically Signed On 01-26-2023 12:14:11 CDT by Mahesh Miner M.D.
[2023-01-25] MEDS: SODIUM CHLORIDE 0.9% IV 1,000 ML 999 ML IV CONT (17:34)
[2023-01-25] MEDS: ONDANSETRON INJ 4 MG/2 ML VIAL IV PUSH (17:34)
[2023-01-25 17:35] LABS: Basophils Percent Auto 0.3 % (0.2-1.2); Eosinophils Absolute Auto 0.1 K/mm3 (0-0.3); Eosinophils Percent Auto 0.8 % (0-4.4); Hematocrit 47.3 % (42.0-52.0); Hemoglobin 16.5 g/dL (14.0-18.0); Immature Granulocyte Absolute 0.03 K/mm3 (0.00-0.031); Immature Granulocyte Percent A 0.3 % (0-0.5); Lymphocytes Absolute Auto 2.78 K/mm3 (0.9-3.2); Lymphocytes Percent Auto 23.3 % (18.3-44.2); Mean Corpuscular HGB Conc 34.9 g/dl (32-36); Mean Corpuscular Hemoglobin 31.3 pg (26-34); Mean Corpuscular Volume 89.6 fl (80-100); Neutrophils Percent Auto 67.3 % (45.5-73.1); Platelet Count Result 275 k/mm3 (150-375); Red Blood Count 5.28 M/mm3 (4.6-6.20); Red Cell Distribution Width 12.8 % (11.5-14.5); White Blood Count 11.9 K/mm3 (4.5-10.0)
[2023-01-25] MEDS: HYDROmorphone HCL INJ (*CRX) 1 MG/ML SYR 0.5 MG IV PUSH (17:35)
[2023-01-25] MEDS: FAMOTIDINE 20 MG/2 ML VIAL IV PUSH (18:38)
[2023-01-25 18:50] LABS: Alanine Aminotransferase 36 U/L (6-50); Albumin Level 4.2 g/dL (3.5-5.1); Alkaline Phosphatase 221 U/L (38-126); Anion Gap 7 mmol/L (8-16); Aspartate Amino Transferase 33 U/L (17-59); Bilirubin,Total 0.5 mg/dL (0.2-1.3); Blood Urea Nitrogen 18 mg/dL (9-20); Calcium 9.3 mg/dL (8.4-10.2); Carbon Dioxide 32 mmol/L (22-30); Chloride 93 mmol/L (98-107); Estimated Glomerular Filt Rate > 60; Glucose 364 mg/dL (65-110); Lipase 114 U/L (23-300); Potassium 4.5 mmol/L (3.4-5.0); Sodium 132 mmol/L (137-145)
--- NOTE | 2023-01-25 18:58 | PC.NURSE ---
pt unable to urinated at this time. pt declining straight cath.
--- NOTE | 2023-01-25 19:34 | PC.NURSE ---
This RN assumed care of patient.
[2023-01-25 19:39] LABS: Appearance Urine Clear (Clear); Bacteria Urine None Seen /hpf; Bilirubin Urine Negative (Negative); Blood Urine Trace (Negative); Color Urine Yellow (Yellow); Glucose Urine UA 3+ mg/dL (Negative); Ketones Urine Trace mg/dL (Negative); Leukocyte Esterase Ur Negative LEU/UL (Negative); Need Manual Microscopic Reviewed; Nitrate Urine Negative (Negative); Protein Urine 4+ mg/dL (Negative); Squamous Epithelial Cell Urine None seen /hpf (Few); Urobilinogen Urine 0.2 mg/dL (<2.0); WBC Urine 0-5 /hpf
[2023-01-25 19:40] LABS: Add Urine Microscopic? YES; Specific Grav Ur 1.044 (1.001-1.035)
[2023-01-25 20:18] LABS: Fractional Inspired Oxygen 21 %; HCO3 VBG 25.8 mEq/l (24.0-30.0); PCO2 VBG 42.4 mmHg (42.0-48.0); PO2 VBG 33.4 mmHg (35.0-45.0)
[2023-01-25 20:21] LABS: Device ROOM AIR; pH VBG 7.402 (7.300-7.400)
[2023-01-25] MEDS: BELLADONNA ALK/PHENOB ELIX 10 ML, MAG HYDROX/ALUMINUM HYD/SIMETH 30 ML, LIDOCAINE HCL 2... PO (20:24)
[2023-01-25] MEDS: HYDROmorphone HCL INJ (*CRX) 1 MG/ML SYR IV PUSH (21:21)
[2023-01-25 22:15] LABS: Glucose Point of Care 302 mg/dl (65-105)
== END 2023-01-25 22:44 | disposition home or self-care (01) ==
PROVIDERS: Emergency Provider Physician Assistant; PCP Family Medicine
DX: K29.70 Gastritis, unspecified, without bleeding (principal); I11.0 Hypertensive heart disease with heart failure; I50.20 Unspecified systolic (congestive) heart failure; I25.10 Atherosclerotic heart disease of native coronary artery without angina pectoris; E11.42 Type 2 diabetes mellitus with diabetic polyneuropathy; E11.51 Type 2 diabetes mellitus with diabetic peripheral angiopathy without gangrene; I73.9 Peripheral vascular disease, unspecified; I42.9 Cardiomyopathy, unspecified; E78.5 Hyperlipidemia, unspecified; I25.2 Old myocardial infarction; B18.2 Chronic viral hepatitis C; E55.9 Vitamin D deficiency, unspecified; M19.012 Primary osteoarthritis, left shoulder; M19.011 Primary osteoarthritis, right shoulder; Z95.2 Presence of prosthetic heart valve; Z95.1 Presence of aortocoronary bypass graft; Z87.891 Personal history of nicotine dependence; Z79.4 Long term (current) use of insulin; Z79.82 Long term (current) use of aspirin; Z89.612 Acquired absence of left leg above knee; R00.0 Tachycardia, unspecified; R94.31 Abnormal electrocardiogram [ECG] [EKG]
CPT/HCPCS: 36415; 71045; 74177; 80053; 81001; 82010; 82803; 82948; 83690; 85025; 93005; 96361; 96372; 96374; 96375; 96376; 99284; A9270; J1170; J2405; J7030; Q9967

== ENCOUNTER 2023-03-06 07:41 | Outpatient (CLI) | payer MEDICARE, SELFPAY ==
--- NOTE | ~2023-03-06 | NM_ITS ---
EXAM: NM gastric emptying study DATE: 03/06/2023 12:33 INDICATION: Nausea with vomiting TECHNIQUE: A gastric emptying study was performed using the methodology of Shraddha JUSTICE, et al. J Nucl Med 2007; 48:568-572. The patient was given a meal consisting of 2 scrambled eggs labeled with 1.0 m Ci Tc-99m sulfur colloid, 2 slices of toast, two packages of jam, and approximately 120 mL of water. Simultaneous anterior and posterior 1-min images of the abdomen were obtained with the patient supine at multiple time points over a total period of 4 hours. The geometric mean of anterior and posterior views was determined, and the percentage retention was calculated for each time point. COMPARISON: None. FINDINGS: Gastric retention of the radiotracer-labeled meal was 51%, 25%, and 10% at the 1-hour, 2-hour, and 4- hour time points, respectively. With this technique, apparent rapid gastric emptying is suggested by <30% gastric retention at 1 hour. Delayed gastric emptying is defined by gastric retention of >90% at 1 hour, >60% retention at 2 hours, or >10% retention at 4 hours. IMPRESSION: 1. Normal gastric emptying. Reviewed, dictated and finalized at location A. IMPRESSION: 1. Normal gastric emptying.
== END 2023-03-06 07:42 | disposition home or self-care (01) ==
PROVIDERS: PCP Family Medicine; Visit Provider Nurse Practitioner
DX: R11.2 Nausea with vomiting, unspecified (principal); R93.3 Abnormal findings on diagnostic imaging of other parts of digestive tract
CPT/HCPCS: 78264; A9541

== ENCOUNTER 2023-03-22 14:30 | Emergency (ER) | payer MEDICARE, SELFPAY ==
[2023-03-22] VITALS (13 sets, daily range): BP systolic 120–159; BP diastolic 50–142; PULSE 80–110; RESP 15–27; TEMP 36.6; O2SAT 92–100
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
[2023-03-22] MEDS: HYDROmorphone HCL INJ (*CRX) 1 MG/ML SYR IM ×2 (20:18→21:18)
[2023-03-22] MEDS: ONDANSETRON HCL ODT 4 MG TABLET PO (20:19)
== END 2023-03-22 21:25 | disposition home or self-care (01) ==
PROVIDERS: Emergency Provider Emergency Medicine; PCP Family Medicine
DX: G54.6 Phantom limb syndrome with pain (principal); I42.9 Cardiomyopathy, unspecified; I25.10 Atherosclerotic heart disease of native coronary artery without angina pectoris; I10 Essential (primary) hypertension; E78.5 Hyperlipidemia, unspecified; E11.42 Type 2 diabetes mellitus with diabetic polyneuropathy; E11.51 Type 2 diabetes mellitus with diabetic peripheral angiopathy without gangrene; I73.9 Peripheral vascular disease, unspecified; B18.2 Chronic viral hepatitis C; I25.2 Old myocardial infarction; M19.90 Unspecified osteoarthritis, unspecified site; E55.9 Vitamin D deficiency, unspecified; F41.9 Anxiety disorder, unspecified; F32.A Depression, unspecified; Z95.1 Presence of aortocoronary bypass graft; Z86.010 Personal history of colon polyps; Z87.891 Personal history of nicotine dependence; Z79.4 Long term (current) use of insulin; Z79.82 Long term (current) use of aspirin; Z95.2 Presence of prosthetic heart valve
CPT/HCPCS: 96372; 99284; A9270; J1170

== ENCOUNTER 2023-04-24 09:02 | Emergency (ER) | payer MEDICARE, SELFPAY ==
--- NOTE | ~2023-04-24 | CT_ITS ---
EXAMINATION: CT pelvis wo con DATE: 04/24/2023 09:59 INDICATION: Lateral left hip and left stump pain post fall TECHNIQUE: High resolution computed tomography (CT) of the pelvis was performed without intravenous c ontrast. Additional sagittal and coronal reconstructions were performed. Automated exposure control a nd iterative reconstruction technique were employed. The dose-length product was 482.53 mGy-cm. COMPARISON: CT abdomen pelvis dated 01/25/2023 FINDINGS: Status post left lower limb amputation at the level of the hip joint. There is some heterotopic ossif ication in the soft tissues extending between the left hip and near the skin surface along the scar o f the amputation. Stable appearance of old fracture deformities along the left superior and inferior pubic rami and left acetabulum. No acute fractures identified. Mild right hip osteoarthritis and mode rate bilateral sacroiliac osteoarthritis with suggestion of developing ankylosis at the left sacroili ac joint. Mild lower lumbar spondylosis. There is expected severe fatty atrophy of the musculature in the left hemipelvis secondary to the leg amputation including the left-sided gluteal, iliopsoas and adductor musculature. Bladder and visualized portion of the bowels and lower poles of both kidneys ar e unremarkable. No free fluid in the pelvis. No pathologically enlarged cervical or inguinal lymphade nopathy. There is calcified atherosclerosis of the aorta and many of the other arteries. Right common and external iliac artery stenting. IMPRESSION: 1. Stable appearance of several old fracture deformities in the pelvis and prior left lower limb ampu tation at the level of the hip joint. No acute osseous abnormality. Reviewed, dictated and finalized at location A. IMPRESSION: 1. Stable appearance of several old fracture deformities in the pelvis and prio r left lower limb amputation at the level of the hip joint. No acute osseous ab normality.
[2023-04-24 09:07] VITALS: BP 178/64; PULSE 78; RESP 16; TEMP 36.3; O2SAT 98
--- NOTE | 2023-04-24 09:30 | PC.NURSE ---
pt states he is out of pain medications and pain is uncontrolled in left side pelvic.
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
[2023-04-24] MEDS: HYDROmorphone HCL INJ (*CRX) 1 MG/ML SYR IM ×2 (10:24→11:28)
== END 2023-04-24 11:57 | disposition home or self-care (01) ==
PROVIDERS: Emergency Provider Physician Assistant; PCP Family Medicine
DX: G54.6 Phantom limb syndrome with pain (principal); I42.9 Cardiomyopathy, unspecified; I25.10 Atherosclerotic heart disease of native coronary artery without angina pectoris; I10 Essential (primary) hypertension; E78.5 Hyperlipidemia, unspecified; E11.42 Type 2 diabetes mellitus with diabetic polyneuropathy; E11.51 Type 2 diabetes mellitus with diabetic peripheral angiopathy without gangrene; I73.9 Peripheral vascular disease, unspecified; B18.2 Chronic viral hepatitis C; I25.2 Old myocardial infarction; M19.90 Unspecified osteoarthritis, unspecified site; E55.9 Vitamin D deficiency, unspecified; F41.9 Anxiety disorder, unspecified; F32.A Depression, unspecified; Z95.1 Presence of aortocoronary bypass graft; Z95.2 Presence of prosthetic heart valve; Z86.010 Personal history of colon polyps; Z87.891 Personal history of nicotine dependence; Z79.4 Long term (current) use of insulin; Z79.82 Long term (current) use of aspirin; W07.XXXA Fall from chair, initial encounter
CPT/HCPCS: 72192; 96372; 99284; J1170

== ENCOUNTER 2023-05-06 02:44 | Emergency (ER) | payer MEDICARE, SELFPAY ==
[2023-05-06 02:46] VITALS: BP 172/56; PULSE 83; RESP 15; TEMP 36.8; O2SAT 99
== END 2023-05-06 02:50 | disposition left against medical advice (07) ==
LOC: ANHED 05:29
PROVIDERS: PCP Family Medicine
DX: G54.6 Phantom limb syndrome with pain (principal)
CPT/HCPCS: 99199

== ENCOUNTER 2023-05-06 07:20 | Emergency (ER) | payer MEDICARE, SELFPAY ==
[2023-05-06 07:26] VITALS: BP 164/68; PULSE 80; RESP 18; TEMP 36.5; O2SAT 100
[2023-05-06 07:48] LABS: Basophils Percent Auto 0.2 % (0.2-1.2); Eosinophils Absolute Auto 0.1 K/mm3 (0-0.3); Eosinophils Percent Auto 2.2 % (0-4.4); Hemoglobin 12.3 g/dL (14.0-18.0); Lymphocytes Absolute Auto 2.51 K/mm3 (0.9-3.2); Lymphocytes Percent Auto 42.8 % (18.3-44.2); Mean Corpuscular HGB Conc 34.2 g/dl (32-36); Mean Corpuscular Hemoglobin 31.7 pg (26-34); Mean Corpuscular Volume 92.8 fl (80-100); Mean Platelet Volume 11.5 fl (7.4-10.4); Monocytes Absolute Auto 0.8 K/mm3 (0.1-0.6); Monocytes Percent Auto 12.9 % (2.6-8.5); Neutrophils Absolute Auto 2.5 K/mm3 (1.3-6.7); Neutrophils Percent Auto 41.9 % (45.5-73.1); Platelet Count Result 168 k/mm3 (150-375); Red Blood Count 3.88 M/mm3 (4.6-6.20); Red Cell Distribution Width 12.6 % (11.5-14.5); White Blood Count 5.9 K/mm3 (4.5-10.0)
[2023-05-06 07:55] LABS: Alanine Aminotransferase 26 U/L (6-50); Albumin Level 3.2 g/dL (3.5-5.1); Alkaline Phosphatase 210 U/L (38-126); Anion Gap 5 mmol/L (8-16); Aspartate Amino Transferase 32 U/L (17-59); Bilirubin,Total 0.3 mg/dL (0.2-1.3); Blood Urea Nitrogen 32 mg/dL (9-20); Calcium 7.7 mg/dL (8.4-10.2); Carbon Dioxide 20 mmol/L (22-30); Chloride 107 mmol/L (98-107); Estimated CRCL calculation 65 ml/min; Estimated Glomerular Filt Rate 57; Glucose 256 mg/dL (65-110); Lipase 170 U/L (23-300); Potassium 4.2 mmol/L (3.4-5.0); Sodium 132 mmol/L (137-145)
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
[2023-05-06] MEDS: HYDROmorphone HCL INJ (*CRX) 1 MG/ML SYR IV PUSH ×2 (08:56→10:02)
[2023-05-06 09:16] VITALS: BP 183/76; PULSE 80; RESP 16; O2SAT 100
[2023-05-06 09:52] LABS: Appearance Urine Clear (Clear); Bacteria Urine None Seen /hpf; Bilirubin Urine Negative (Negative); Blood Urine Trace (Negative); Color Urine Yellow (Yellow); Glucose Urine UA 3+ mg/dL (Negative); Ketones Urine Negative (Negative); Leukocyte Esterase Ur Negative LEU/UL (Negative); Need Manual Microscopic Reviewed; Nitrate Urine Negative (Negative); Protein Urine 4+ mg/dL (Negative); RBC Urine 0-2 /hpf (0-2); Specific Grav Ur 1.024 (1.001-1.035); Squamous Epithelial Cell Urine None seen /hpf (Few); WBC Urine 0-5 /hpf
[2023-05-06 09:54] LABS: Add Urine Microscopic? YES
[2023-05-06] MEDS: KETOROLAC 15 MG/ML VIAL (*BKC) IV PUSH (10:39)
[2023-05-06 10:43] VITALS: BP 177/76; PULSE 77; RESP 18; O2SAT 98
== END 2023-05-06 10:55 | disposition home or self-care (01) ==
PROVIDERS: Emergency Provider Emergency Medicine; PCP Family Medicine
DX: G54.6 Phantom limb syndrome with pain (principal); G89.29 Other chronic pain; I42.9 Cardiomyopathy, unspecified; I25.10 Atherosclerotic heart disease of native coronary artery without angina pectoris; I10 Essential (primary) hypertension; E78.5 Hyperlipidemia, unspecified; E11.42 Type 2 diabetes mellitus with diabetic polyneuropathy; E11.51 Type 2 diabetes mellitus with diabetic peripheral angiopathy without gangrene; I73.9 Peripheral vascular disease, unspecified; B18.2 Chronic viral hepatitis C; I25.2 Old myocardial infarction; M19.90 Unspecified osteoarthritis, unspecified site; E55.9 Vitamin D deficiency, unspecified; F41.9 Anxiety disorder, unspecified; F32.A Depression, unspecified; Z95.1 Presence of aortocoronary bypass graft; Z95.2 Presence of prosthetic heart valve; Z86.010 Personal history of colon polyps; Z87.891 Personal history of nicotine dependence; Z79.4 Long term (current) use of insulin; Z79.82 Long term (current) use of aspirin
CPT/HCPCS: 36415; 80053; 81001; 83690; 85025; 96374; 96375; 96376; 99284; J1170; J1885

== ENCOUNTER 2023-05-06 19:36 | Emergency (ER) | payer MEDICARE, SELFPAY ==
[2023-05-06 19:39] VITALS: BP 164/78; PULSE 84; RESP 19; TEMP 36.6; O2SAT 100
--- NOTE | 2023-05-06 23:13 | PC.NURSE ---
Pt was brought to room and waiting to be seen by provider. Pt waited in room approximately 1 hour and decided he no longer wanted to be seen. Pt left dept before being assessed by provider.
== END 2023-05-06 23:23 | disposition left against medical advice (07) ==
PROVIDERS: PCP Family Medicine
DX: M25.552 Pain in left hip (principal)
CPT/HCPCS: 99199

== ENCOUNTER 2023-05-16 20:09 | Emergency (ER) | payer MEDICARE, SELFPAY ==
--- NOTE | ~2023-05-16 | XR_ITS ---
XR chest 1V 05/17/2023 01:16 Indication: Hyperglycemia Procedure: AP view of the chest Comparison: Comparison to multiple prior studies sequentially, with oldest reviewed study dated 05/17. Findings: Status post median sternotomy for CABG. Audible fracture sternal wires. Borderline heart si ze. Bilateral diffuse interstitial infiltrates are present. No pleural effusion or pneumothorax. No a cute osseous abnormality. Impression: 1: Interval development of diffuse bilateral interstitial infiltrates which may represent edema or pn eumonia. Reviewed, dictated and finalized at location A. Impression: 1: Interval development of diffuse bilateral interstitial infiltrates which may represent edema or pneumonia.
--- NOTE | ~2023-05-16 | CT_ITS ---
EXAMINATION: CT brain wo con DATE: 05/17/2023 02:41 INDICATION: Headache TECHNIQUE: Computed tomography (CT) of the head was performed without intravenous contrast. The dose- length product was 681.00 mGy-cm. Automated exposure control and iterative reconstruction technique w ere employed. COMPARISON: CTA dated 10/27/2022 FINDINGS: There is a chronic left posterior parietal/occipital lobe infarction. There are small chron ic bilateral frontal lobe infarctions. There is a chronic left lacunar infarction. There is a chronic infarction of the midbrain and sean. There are scattered mild periventricular and subcortical white matter changes, most likely related to small vessel ischemic disease (microangiopathy). There is intr acranial atherosclerosis. Paranasal sinuses are pneumatized. Mastoids are unremarkable. No depressed skull fractures. Midline sagittal images demonstrate a normal corpus callosum and craniovertebral kim ction. IMPRESSION: 1. No acute intracranial abnormality. 2: Multiple chronic scattered bilateral infarctions described above. Reviewed, dictated and finalized at location A.
--- NOTE | ~2023-05-16 | CT_ITS ---
EXAMINATION: CT pelvis w con DATE: 05/17/2023 02:43 INDICATION: Left pelvic pain. TECHNIQUE: Computed tomography (CT) of the pelvis was performed with 100 cc Omnipaque 350 intravenous contrast. The dose-length product was 765.71 mGy-cm. Automated exposure control and iterative recons truction technique were employed. COMPARISON: CT dated 04/24/2023 FINDINGS: Nonobstructive bowel pattern. There is atherosclerosis. Stable appearance to old fracture d eformities of the pelvis with amputation of the left lower extremity at the level of the hip. Mild th ickening of the bladder wall. Cannot exclude cystitis. Correlate clinically. No lymphadenopathy. No f ree air or free fluid. Colonic diverticulosis without evidence for diverticulitis. IMPRESSION: 1. Mild thickening of the bladder wall. Recommend clinical correlation to exclude cystitis. Reviewed, dictated and finalized at location A. IMPRESSION: 1. Mild thickening of the bladder wall. Recommend clinical correlation to exclu de cystitis.
[2023-05-16 20:14] VITALS: BP 181/65; PULSE 97; RESP 20; TEMP 36.4; O2SAT 99
[2023-05-16 20:46] LABS: Basophils Percent Auto 0.3 % (0.2-1.2); Eosinophils Absolute Auto 0.1 K/mm3 (0-0.3); Eosinophils Percent Auto 1.4 % (0-4.4); Hematocrit 33.3 % (42.0-52.0); Hemoglobin 11.3 g/dL (14.0-18.0); Immature Granulocyte Absolute 0.03 K/mm3 (0.00-0.031); Immature Granulocyte Percent A 0.3 % (0-0.5); Lymphocytes Absolute Auto 2.27 K/mm3 (0.9-3.2); Lymphocytes Percent Auto 25.9 % (18.3-44.2); Mean Corpuscular HGB Conc 33.9 g/dl (32-36); Mean Corpuscular Hemoglobin 31.9 pg (26-34); Mean Corpuscular Volume 94.1 fl (80-100); Monocytes Percent Auto 11.8 % (2.6-8.5); Neutrophils Absolute Auto 5.3 K/mm3 (1.3-6.7); Neutrophils Percent Auto 60.3 % (45.5-73.1); Platelet Count Result 198 k/mm3 (150-375); Red Blood Count 3.54 M/mm3 (4.6-6.20); Red Cell Distribution Width 12.1 % (11.5-14.5); White Blood Count 8.8 K/mm3 (4.5-10.0)
[2023-05-16 21:18] LABS: Alanine Aminotransferase 22 U/L (6-50); Albumin Level 3.2 g/dL (3.5-5.1); Alkaline Phosphatase 243 U/L (38-126); Anion Gap 8 mmol/L (8-16); Aspartate Amino Transferase 26 U/L (17-59); Bilirubin,Total 0.3 mg/dL (0.2-1.3); Blood Urea Nitrogen 45 mg/dL (9-20); Calcium 7.9 mg/dL (8.4-10.2); Carbon Dioxide 19 mmol/L (22-30); Chloride 98 mmol/L (98-107); Estimated CRCL calculation 44 ml/min; Estimated Glomerular Filt Rate 52; Glucose 632 mg/dL (65-110); Lipase 178 U/L (23-300); Potassium 4.7 mmol/L (3.4-5.0); Sodium 125 mmol/L (137-145)
[2023-05-16 23:51] VITALS: PULSE 92; RESP 13
[2023-05-16 23:54] VITALS: BP 156/89; PULSE 89; RESP 27; O2SAT 97
[2023-05-17] VITALS (39 sets, daily range): BP systolic 145–194; BP diastolic 68–94; PULSE 83–111; RESP 15–35; O2SAT 94–100
--- NOTE | 2023-05-17 00:33 | ECG_ITS ---
Measurements Intervals [place] Rate: 88 P: 66 AL: 169 QRS: 64 QRSD: 101 T: 249 QT: 358 QTc: 435 Interpretive Statements SINUS RHYTHM POSSIBLE RIGHT ATRIAL ENLARGEMENT POSSIBLE LEFT ATRIAL ENLARGEMENT LEFT VENTRICULAR HYPERTROPHY AND ST-T CHANGE MINIMAL Q WAVES- ANTEROLAT/INF LEADS BORDERLINE ST-T WAVE ABNORMALITY- INF/HIGH LAT LEADS BASELINE WANDER- V1, V5 BORDERLINE ECG COMPARED TO ECG 01/25/2023 18:12:02 SINUS RHYTHM NOW PRESENT LEFT VENTRICULAR HYPERTROPHY NOW PRESENT ST (T WAVE) DEVIATION NOW PRESENT Electronically Signed On 05-17-2023 7:29:45 CDT by Dylan Baker D.O.
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
[2023-05-17] MEDS: LACTATED RINGERS 500 ML 999 ML IV CONT (02:05)
[2023-05-17] MEDS: MORPHINE SULFATE (*CRX) 4 MG/ML INJ IV PUSH (02:06)
[2023-05-17] MEDS: CEPHALEXIN 500 MG CAPSULE PO (02:06)
[2023-05-17] MEDS: INSULIN HUMAN REGULAR (*BKC) 100 UNITS/ML 6 UNITS IV PUSH (02:07)
[2023-05-17 02:13] LABS: Fractional Inspired Oxygen 21 %; HCO3 VBG 22.4 mEq/l (24.0-30.0); PCO2 VBG 33.3 mmHg (42.0-48.0); PO2 VBG 83.9 mmHg (35.0-45.0)
[2023-05-17 02:14] LABS: pH VBG 7.445 (7.300-7.400)
[2023-05-17 02:15] LABS: Device ROOM AIR
[2023-05-17 02:18] LABS: Glucose Point of Care > 500 mg/dl (65-105)
[2023-05-17 02:43] LABS: INR 0.9; Prothrombin Time 12.5 Seconds (11.1-14.7)
[2023-05-17 02:44] LABS: Appearance Urine Clear (Clear); Bacteria Urine None Seen /hpf; Bilirubin Urine Negative (Negative); Blood Urine 1+ (Negative); Color Urine Yellow (Yellow); Glucose Urine UA 3+ mg/dL (Negative); Ketones Urine Negative (Negative); Leukocyte Esterase Ur Negative LEU/UL (Negative); Nitrate Urine Negative (Negative); Non Pathogenic Casts 0-2; Partial Thromboplastin Time 21.3 SECONDS (22.3-36.8); Protein Urine 3+ mg/dL (Negative); RBC Urine 0-2 /hpf (0-2); Specific Grav Ur 1.026 (1.001-1.035); Squamous Epithelial Cell Urine None seen /hpf (Few); Urobilinogen Urine 0.2 mg/dL (<2.0); WBC Urine 0-5 /hpf
[2023-05-17 02:45] LABS: Lactic Acid Reflex 1.3 mmol/L (0.7-2.0)
[2023-05-17 02:46] LABS: Beta-Hydroxybutyrate/Acetoacetate 0.07 mmol/L (0.02-0.27)
[2023-05-17 02:52] LABS: NT Pro B Type Natriuretic Pept 10000 pg/mL (19.9-100)
[2023-05-17 03:01] LABS: CRP 2.6 mg/dL (<1.0); Creatine Kinase 59 U/L (55-170); Magnesium 1.9 mg/dL (1.6-2.3)
[2023-05-17 03:08] LABS: Troponin I 0.035 ng/mL (0.000-0.034)
[2023-05-17 03:13] LABS: Add Urine Microscopic? YES
[2023-05-17 03:17] LABS: Phenytoin Dilantin < 3 ug/mL (10-20)
[2023-05-17 06:25] LABS: Glucose Point of Care 335 mg/dl (65-105)
== END 2023-05-17 06:38 | disposition home or self-care (01) ==
PROVIDERS: Student in an Organized Health Care Education/Training Program; Emergency Provider Student in an Organized Health Care Education/Training Program; PCP Family Medicine
DX: M25.552 Pain in left hip (principal); G89.29 Other chronic pain; E11.65 Type 2 diabetes mellitus with hyperglycemia; L03.115 Cellulitis of right lower limb; I42.9 Cardiomyopathy, unspecified; I50.9 Heart failure, unspecified; I11.0 Hypertensive heart disease with heart failure; I25.10 Atherosclerotic heart disease of native coronary artery without angina pectoris; I25.2 Old myocardial infarction; E11.42 Type 2 diabetes mellitus with diabetic polyneuropathy; E11.51 Type 2 diabetes mellitus with diabetic peripheral angiopathy without gangrene; I73.9 Peripheral vascular disease, unspecified; E78.5 Hyperlipidemia, unspecified; B19.20 Unspecified viral hepatitis C without hepatic coma; E55.9 Vitamin D deficiency, unspecified; M19.012 Primary osteoarthritis, left shoulder; M19.011 Primary osteoarthritis, right shoulder; F41.9 Anxiety disorder, unspecified; Z95.1 Presence of aortocoronary bypass graft; Z87.891 Personal history of nicotine dependence; Z89.612 Acquired absence of left leg above knee; Z79.82 Long term (current) use of aspirin; Z79.4 Long term (current) use of insulin
CPT/HCPCS: 36415; 70450; 71045; 72193; 80053; 80185; 81001; 82010; 82550; 82803; 82948; 83605; 83690; 83735; 83880; 83930; 84484; 85025; 85610; 85730; 86140; 93005; 96361; 96374; 96375; 99284; A9270; J1815; J2270; J7120; Q9967

== ENCOUNTER 2023-05-17 13:56 | Emergency (ER) | payer MEDICARE, SELFPAY ==
[2023-05-17 13:58] VITALS: BP 158/87; PULSE 101; RESP 18; TEMP 36.6; O2SAT 99
[2023-05-17] MEDS: HYDROcodone/acetaminophen (*CRX) 5-325 MG TABLET 1 TAB PO (14:53)
[2023-05-17] MEDS: CYCLOBENZAPRINE HCL 10 MG TABLET PO (14:53)
[2023-05-17] MEDS: LIDOCAINE 5% PATCH 2 PATCH TRANSDERM (15:07)
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
[2023-05-17 16:01] VITALS: BP 152/80; PULSE 92; RESP 16; TEMP 36.6; O2SAT 97
== END 2023-05-17 16:03 | disposition home or self-care (01) ==
PROVIDERS: Emergency Provider Nurse Practitioner Family; PCP Family Medicine
DX: G54.6 Phantom limb syndrome with pain (principal); I42.9 Cardiomyopathy, unspecified; I50.9 Heart failure, unspecified; I11.0 Hypertensive heart disease with heart failure; I25.10 Atherosclerotic heart disease of native coronary artery without angina pectoris; I25.2 Old myocardial infarction; E11.42 Type 2 diabetes mellitus with diabetic polyneuropathy; E11.51 Type 2 diabetes mellitus with diabetic peripheral angiopathy without gangrene; I73.9 Peripheral vascular disease, unspecified; E78.5 Hyperlipidemia, unspecified; B19.20 Unspecified viral hepatitis C without hepatic coma; E55.9 Vitamin D deficiency, unspecified; M19.012 Primary osteoarthritis, left shoulder; M19.011 Primary osteoarthritis, right shoulder; F41.9 Anxiety disorder, unspecified; Z95.1 Presence of aortocoronary bypass graft; Z87.891 Personal history of nicotine dependence; Z89.612 Acquired absence of left leg above knee; Z79.82 Long term (current) use of aspirin; Z79.4 Long term (current) use of insulin
CPT/HCPCS: 99283; A9270

== ENCOUNTER 2023-05-22 11:01 | Observation (INO) | payer MEDICARE, SELFPAY ==
[2023-05-22] VITALS (7 sets, daily range): BP systolic 153–185; BP diastolic 63–71; PULSE 74–87; RESP 12–18; TEMP 36.3–36.6; O2SAT 95–98; BMI 27.7
--- NOTE | ~2023-05-22 | CT_ITS ---
EXAMINATION: CT chest abdomen pelvis w con DATE: 05/22/2023 13:17 CDT INDICATION: Trauma. TECHNIQUE: Computed tomographic angiography (CTA) of the chest, abdomen, and pelvis was performed wit hout and with 100 mL Omnipaque-350 intravenous contrast. The dose-length product was 1571.99 mGy-cm. Maximum intensity projection 3D-reconstructions of the aorta and other arteries were constructed by zunilda steel technologist on a separate workstation. COMPARISON: Left rib series dated 05/22/2023 CT pelvis dated 05/17/2023 CT abdomen dated 01/25/2023. FINDINGS: CHEST, ABDOMEN AND PELVIS CTA: There is atherosclerosis of the aorta and coronary arteries. Status post median sternotomy for CABG. Moderate left and small right pleural effusions. There is extensive atherosclerosis of the thoracic a nd abdominal aorta without aneurysm. There is occlusion of the left common iliac and right external i liac arteries with reconstitution of the right femoral artery in the inguinal location. Status post a mputation of the left lower extremity at the hip level. There are patchy groundglass opacities predom inantly affecting the mid and lower lungs. There is interlobular septal thickening. Differential diag nosis includes edema and pneumonia. Gallbladder is present. The liver, spleen, pancreas, adrenal glan ds and kidneys are unremarkable. Bladder wall is mildly thickened. Mild portacaval and retroperitonea l lymph node enlargement, likely reactive. There is mild thoracic and lumbar spondylosis. No definiti ve rib fractures are seen. There is dextroscoliosis of the thoracolumbar spine. IMPRESSION: 1. Extensive atherosclerosis with occlusion of the left common iliac and right external iliac arterie s. 2: Patchy groundglass opacities with interlobular septal thickening of the mid and lower lungs. Diffe rential diagnosis includes edema and/or pneumonia. 3: Bilateral pleural effusions, moderate on the left and small on the right. 4: Mild bladder wall thickening. Consider cystitis in the appropriate clinical setting. Reviewed, dictated and finalized at location L. IMPRESSION: 1. Extensive atherosclerosis with occlusion of the left common iliac and right external iliac arteries. 2: Patchy groundglass opacities with interlobular septal thickening of the mid and lower lungs. Differential diagnosis includes edema and/or pneumonia. 3: Bilateral pleural effusions, moderate on the left and small on the right. 4: Mild bladder wall thickening. Consider cystitis in the appropriate clinical setting.
--- NOTE | ~2023-05-22 | XR_ITS ---
[XR ribs LT 2V ] INDICATION: Left rib pain after fall TECHNIQUE: Frontal projection of the upper left ribs, frontal projection of the lower left ribs, obli que projection of all the left ribs, frontal inspiratory chest x-ray for interpretation. FINDINGS: There is a possible nondisplaced left eighth rib fracture laterally There are no soft tissu e abnormality seen. The lungs are clear. IMPRESSION: 1: Possible nondisplaced left eighth rib fracture laterally. Reviewed, dictated and finalized at location L.
--- NOTE | ~2023-05-22 | CT_ITS ---
EXAMINATION: CT brain wo con DATE: 05/22/2023 16:33 INDICATION: Status post fall. Headache. TECHNIQUE: Computed tomography (CT) of the head was performed without intravenous contrast. The dose- length product was 983.67 mGy-cm. Automated exposure control and iterative reconstruction technique were employed. COMPARISON: CT dated 05/17/2023 and MRI dated 10/28/2022 FINDINGS: There are chronic bilateral frontal lobe, left posterior parietal/occipital and left lacuna r infarctions. Chronic left cerebellar infarction. No acute infarction, hemorrhage, mass or mass effe ct. Chronic right parietal infarction. Paranasal sinuses and mastoids are pneumatized there is intrac ranial atherosclerosis. No depressed skull fractures. IMPRESSION: 1. No acute intracranial abnormality. No significant interval change. Reviewed, dictated and finalized at location L.
--- NOTE | ~2023-05-22 | XR_ITS ---
XR chest 1V 05/22/2023 16:38 Indication: Status post fall. History of CHF. Peripheral vascular disease. Procedure: AP portable chest Comparison: Comparison to multiple prior studies sequentially, with oldest reviewed study dated 01/08. Findings: Status post median sternotomy for CABG. Cardiomegaly with pulmonary edema. Small pleural ef fusions. No pneumothorax identified. Impression: 1: Cardiomegaly with pulmonary edema. Reviewed, dictated and finalized at location L. Impression: 1: Cardiomegaly with pulmonary edema.
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
[2023-05-22] MEDS: MORPHINE SULFATE (*CRX) 4 MG/ML INJ IV PUSH (12:16)
[2023-05-22 12:31] LABS: Basophils Percent Auto 0.3 % (0.2-1.2); Eosinophils Absolute Auto 0.3 K/mm3 (0-0.3); Eosinophils Percent Auto 2.3 % (0-4.4); Hematocrit 33.8 % (42.0-52.0); Hemoglobin 11.2 g/dL (14.0-18.0); Immature Granulocyte Absolute 0.05 K/mm3 (0.00-0.031); Immature Granulocyte Percent A 0.5 % (0-0.5); Lymphocytes Absolute Auto 2.14 K/mm3 (0.9-3.2); Lymphocytes Percent Auto 19.5 % (18.3-44.2); Mean Corpuscular HGB Conc 33.1 g/dl (32-36); Mean Corpuscular Hemoglobin 32.1 pg (26-34); Mean Corpuscular Volume 96.8 fl (80-100); Mean Platelet Volume 11.8 fl (7.4-10.4); Monocytes Absolute Auto 1.4 K/mm3 (0.1-0.6); Monocytes Percent Auto 12.7 % (2.6-8.5); Neutrophils Absolute Auto 7.1 K/mm3 (1.3-6.7); Neutrophils Percent Auto 64.7 % (45.5-73.1); Platelet Count Result 214 k/mm3 (150-375); Red Blood Count 3.49 M/mm3 (4.6-6.20); Red Cell Distribution Width 12.6 % (11.5-14.5)
[2023-05-22 12:38] LABS: Anion Gap 4 mmol/L (8-16); Blood Urea Nitrogen 37 mg/dL (9-20); Calcium 7.9 mg/dL (8.4-10.2); Carbon Dioxide 26 mmol/L (22-30); Chloride 102 mmol/L (98-107); Estimated CRCL calculation 58 ml/min; Estimated Glomerular Filt Rate 52; Glucose 238 mg/dL (65-110); Potassium 4.5 mmol/L (3.4-5.0); Sodium 132 mmol/L (137-145)
[2023-05-22 16:09] LABS: INR 0.9; Prothrombin Time 12.5 Seconds (11.1-14.7)
--- NOTE | 2023-05-22 19:13 | PC.NURSE ---
Assumed care of pt from Aurelia REA and Rudy REA at this time.
--- NOTE | 2023-05-22 20:55 | ADMGEN ---
This patient, Calvin Flores, was admitted to Medical Room 341-01. Patient/family oriented to hospital policies and general routines including ID bracelet, bed and alarms, visiting hours, pain management, procedures, bathroom and other care routines, personal items, smoking policy, room service/diet, and visiting hours. Information on how to activate the Rapid Response Team has been discussed. Patient/Family are encouraged to report perceived risks to care and to ask questions if they do not understand what they are told or what they should do.
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
[2023-05-23] VITALS (8 sets, daily range): BP systolic 144–196; BP diastolic 64–77; PULSE 72–87; RESP 14–18; TEMP 36.4–36.5; O2SAT 97–98
[2023-05-23] MEDS: ACETAMINOPHEN 325 MG TABLET 650 MG PO ×3 (01:55→23:26)
[2023-05-23] MEDS: MORPHINE SULFATE (*CRX) 2 MG/ML INJ IV PUSH ×5 (02:52→20:17)
[2023-05-23] MEDS: CYCLOBENZAPRINE HCL 10 MG TABLET PO ×3 (04:18→23:26)
[2023-05-23 08:12] LABS: Glucose Point of Care 213 mg/dl (65-105)
[2023-05-23] MEDS: FLUoxetine HCL 20 MG CAPSULE 80 MG PO (08:28)
[2023-05-23] MEDS: PHENYTOIN SODIUM 100 MG EXTENDED RELEASE CAP PO (08:29)
[2023-05-23] MEDS: ROSUVASTATIN 10 MG TABLET 40 MG PO (08:29)
[2023-05-23] MEDS: CLOPIDOGREL BISULFATE 75 MG TABLET PO (08:29)
[2023-05-23] MEDS: GABAPENTIN 300 MG CAPSULE PO ×3 (08:29→16:32)
[2023-05-23] MEDS: CEPHALEXIN 500 MG CAPSULE PO ×2 (08:29→20:18)
[2023-05-23] MEDS: ASPIRIN 81 MG ENTERIC TABLET PO (08:30)
[2023-05-23] MEDS: SPIRONOLACTONE 25 MG TABLET PO (08:30)
[2023-05-23] MEDS: lisinopriL 20 MG TABLET PO (08:30)
[2023-05-23] MEDS: PANTOPRAZOLE 40 MG TABLET PO (08:30)
[2023-05-23] MEDS: METOPROLOL TARTRATE 50 MG TAB PO ×2 (08:45→16:32)
[2023-05-23] MEDS: INSULIN HUMAN ISOPHAN/REGULAR 70/30 (*BKC) 100 UNITS/ML 20 UNITS SUB-Q (08:46)
[2023-05-23 12:09] LABS: Glucose Point of Care 269 mg/dl (65-105)
[2023-05-23] MEDS: INSULIN ASPART (*BKC) 100 UNITS/ML SUB-Q ×2 (12:58→17:42)
--- NOTE | 2023-05-23 14:31 | PM.IMPN ---
Progress Note: A&P Assessment and Plan (1) Falls frequently: Code(s): R29.6 - Repeated falls Status: Acute Plan # frequent falls -patient having numerous falls yesterday at baseline uses wheelchair and transfers on his own. lives with -PT evaluation: recs for skilled PT for gait training, transfer training -baseline: uses wheelchair, h/o LLE amputation -will check orthostatics -on x-ray concern for left 8th rib lateral fracture however on CT scan, the fracture was not visualized # right lower extremity cellulitis -patient recently started on Keflex for mg q.6 hours per week, will continue # chronic conditions -hyperlipidemia, CAD, PAD: Aspirin, Plavix, statin, recent CEA left carotid -essential hypertension: Metoprolol, lisinopril, spironolactone -type 2 diabetes: Continue 70/30 insulin 20u with breakfast and 10u with dinner, sliding scale insulin as well, accucheck ACHS -seizure disorder: Phenytoin -depression: Fluoxetine -chronic constipation: MiraLax Diet: Diabetic DVT prophylaxis: SCDs Code status: Full code Disposition: SNF Subjective Date/time seen: 05/23/23 14:31 Interval history: Patient seen and examined. Patient appears to be doing well today. He had numerous falls yesterday. Will request physical therapy. He states he had not pattern fallen prior to yesterday. He denies any dizziness, lightheadedness, presyncope. He states he is doing much better. Patient work physical therapy today. Will check orthostatics. Patient at baseline uses wheelchair. Review of Systems Review of Systems: 10 point ROS complete, negative other than what is specified in HPI. Exam Narrative: - GENERAL: Pleasant male no acute distress. Well-nourished. - EYES: EOMI. Anicteric. - HENT: Moist mucous membranes. - LUNGS: Clear to auscultation bilaterally, no wheezing, rhonchi, or rales. - CARDIOVASCULAR: Regular rate and rhythm. No murmur. No JVD. - ABDOMEN: Soft, non-tender and non-distended. No palpable masses. - EXTREMITIES: No edema. Peripheral pulses 2+. Amputated left lower extremity - NEUROLOGIC: No focal neurological deficits. CN II-XII grossly intact. - PSYCHIATRIC: Awake, Alert and oriented x 3. Appropriate mood and affect. - SKIN: Wound on left neck recent carotid endarterectomy - LYMPH: No cervical lymphadenopathy. Objective Data Vital Signs Vital Signs: Vital Signs - 24 hr 05/22/23 15:55 05/22/23 18:05 05/22/23 20:21 Temperature Pulse Rate 78 87 87 Respiratory Rate 18 18 18 Blood Pressure 180/71 H 185/70 H 181/68 H Pulse Oximetry 97 97 97 Oxygen Delivery 05/22/23 20:50 05/23/23 04:08 05/23/23 08:35 Temperature 36.6 C 36.5 C Pulse Rate 85 87 85 Respiratory Rate 16 16 14 Blood Pressure 181/71 H 144/77 H 184/64 H Pulse Oximetry 98 97 97 Oxygen Delivery 05/23/23 08:45 05/23/23 08:30 05/23/23 13:08 Temperature Pulse Rate 86 Respiratory Rate Blood Pressure Pulse Oximetry 98 Oxygen Delivery Room Air Room Air 05/23/23 13:47 Temperature Pulse Rate Respiratory Rate Blood Pressure Pulse Oximetry Oxygen Delivery Room Air Intake/Output Intake/Output: Intake & Output 05/20/23 05/21/23 05/22/23 05/23/23 23:59 23:59 23:59 23:59 Intake Total 1000 Output Total 1200 Balance -200 Meds/Results Medications: Active Medications Generic Name Dose Route Start Last Admin Trade Name Yangq PRN Reason Stop Dose Admin Acetaminophen 650 mg 05/23/23 00:43 05/23/23 05:37 Acetaminophen 325 Mg Tablet PO 650 mg Q4H PRN Administration Mild Pain (1-3) or Fever Aspirin 81 mg 05/23/23 09:00 05/23/23 08:30 Aspirin 81 Mg Enteric Tablet PO 81 mg DAILY TJ Administration Cephalexin HCl 500 mg 05/23/23 09:00 05/23/23 08:29 Cephalexin 500 Mg Capsule PO 05/24/23 23:59 500 mg Q12HR TJ Administration Clopidogrel Bisulfate 75 mg 05/23/23 09:00 05/23/23 08:29 Clopidogrel Bisulfate 75 Mg Table
[2023-05-23 17:23] LABS: Glucose Point of Care 203 mg/dl (65-105)
[2023-05-23] MEDS: INSULIN HUMAN ISOPHAN/REGULAR 70/30 (*BKC) 100 UNITS/ML 10 UNITS SUB-Q (17:41)
[2023-05-23 20:19] LABS: Glucose Point of Care 235 mg/dl (65-105)
[2023-05-23] MEDS: BENZOCAINE/MENTHOL (*BKC) 18 EA LOZENGE 1 LOZENGE PO (21:54)
[2023-05-23] MEDS: FLUTICASONE PROPIONATE 0.05% NA SPR 16 GM BTL (*BKC) 1 SPRAY NASAL (21:54)
[2023-05-24] VITALS (7 sets, daily range): BP systolic 161–183; BP diastolic 62–86; PULSE 64–77; RESP 16–20; TEMP 36.4–36.8; O2SAT 94–99
[2023-05-24] MEDS: MORPHINE SULFATE (*CRX) 2 MG/ML INJ IV PUSH ×4 (00:31→23:13)
[2023-05-24] MEDS: ACETAMINOPHEN 325 MG TABLET 650 MG PO (03:56)
[2023-05-24 06:01] LABS: Basophils Percent Auto 0.2 % (0.2-1.2); Eosinophils Absolute Auto 0.2 K/mm3 (0-0.3); Eosinophils Percent Auto 1.9 % (0-4.4); Hematocrit 35.4 % (42.0-52.0); Hemoglobin 11.8 g/dL (14.0-18.0); Immature Granulocyte Absolute 0.03 K/mm3 (0.00-0.031); Immature Granulocyte Percent A 0.3 % (0-0.5); Lymphocytes Absolute Auto 2.36 K/mm3 (0.9-3.2); Lymphocytes Percent Auto 24.5 % (18.3-44.2); Mean Corpuscular HGB Conc 33.3 g/dl (32-36); Mean Corpuscular Hemoglobin 32.1 pg (26-34); Mean Corpuscular Volume 96.2 fl (80-100); Mean Platelet Volume 11.8 fl (7.4-10.4); Monocytes Percent Auto 10.3 % (2.6-8.5); Neutrophils Percent Auto 62.8 % (45.5-73.1); Platelet Count Result 251 k/mm3 (150-375); Red Blood Count 3.68 M/mm3 (4.6-6.20); Red Cell Distribution Width 12.3 % (11.5-14.5); White Blood Count 9.6 K/mm3 (4.5-10.0)
[2023-05-24 06:14] LABS: Anion Gap 6 mmol/L (8-16); Blood Urea Nitrogen 21 mg/dL (9-20); Calcium 8.4 mg/dL (8.4-10.2); Carbon Dioxide 24 mmol/L (22-30); Chloride 104 mmol/L (98-107); Estimated CRCL calculation 73 ml/min; Estimated Glomerular Filt Rate > 60; Glucose 211 mg/dL (65-110); Potassium 4.1 mmol/L (3.4-5.0); Sodium 134 mmol/L (137-145)
[2023-05-24 07:36] LABS: Glucose Point of Care 230 mg/dl (65-105)
[2023-05-24] MEDS: FLUoxetine HCL 20 MG CAPSULE 80 MG PO (09:27)
[2023-05-24] MEDS: lisinopriL 20 MG TABLET 40 MG PO (09:28)
[2023-05-24] MEDS: SPIRONOLACTONE 25 MG TABLET 50 MG PO (09:28)
[2023-05-24] MEDS: ASPIRIN 81 MG ENTERIC TABLET PO (09:28)
[2023-05-24] MEDS: PHENYTOIN SODIUM 100 MG EXTENDED RELEASE CAP PO (09:29)
[2023-05-24] MEDS: METOPROLOL TARTRATE 50 MG TAB PO ×2 (09:29→17:05)
[2023-05-24] MEDS: CEPHALEXIN 500 MG CAPSULE PO ×2 (09:30→21:42)
[2023-05-24] MEDS: GABAPENTIN 300 MG CAPSULE PO ×3 (09:30→17:05)
[2023-05-24] MEDS: ROSUVASTATIN 10 MG TABLET 40 MG PO (09:30)
[2023-05-24] MEDS: PANTOPRAZOLE 40 MG TABLET PO (09:30)
[2023-05-24] MEDS: CLOPIDOGREL BISULFATE 75 MG TABLET PO (09:30)
[2023-05-24] MEDS: polyethylene glycoL 3350 17 GM POWD.PACK PO (09:31)
[2023-05-24] MEDS: FLUTICASONE PROPIONATE 0.05% NA SPR 16 GM BTL (*BKC) 1 SPRAY NASAL ×2 (09:37→21:00)
[2023-05-24] MEDS: INSULIN ASPART (*BKC) 100 UNITS/ML SUB-Q ×2 (09:38→12:38)
[2023-05-24] MEDS: INSULIN HUMAN ISOPHAN/REGULAR 70/30 (*BKC) 100 UNITS/ML 25 UNITS SUB-Q (09:39)
--- NOTE | 2023-05-24 11:41 | PM.IMPN ---
Progress Note: A&P Assessment and Plan (1) Falls frequently: Code(s): R29.6 - Repeated falls Status: Acute (2) Hypertension: Code(s): I10 - Essential (primary) hypertension Status: Acute (3) Acute dehydration: Code(s): E86.0 - Dehydration Status: Acute Plan # frequent falls -patient having numerous falls yesterday at baseline uses wheelchair and transfers on his own. lives with -PT evaluation: recs for skilled PT for gait training, transfer training -baseline: uses wheelchair, h/o LLE amputation -on x-ray concern for left 8th rib lateral fracture however on CT scan, the fracture was not visualized -continue pain control, bowel regimen # right lower extremity cellulitis -patient recently started on Keflex for mg q.6 hours per week, will continue # chronic conditions -hyperlipidemia, CAD, PAD: Aspirin, Plavix, statin, recent CEA left carotid -essential hypertension: Metoprolol, increasing spironolactone from 25-50 mg, lisinopril from 20-40mg -type 2 diabetes: increase 70/30 insulin 20u->25U with breakfast and 10u->15U with dinner, sliding scale insulin as well, accucheck ACHS -seizure disorder:? Phenytoin -depression: Fluoxetine -chronic constipation: MiraLax Diet:? Diabetic DVT prophylaxis:??SCDs Code status:??Full code Disposition:?[facility] Subjective Date/time seen: 05/24/23 11:41 Interval history: Patient seen and examined. Patient is having significant elevated blood pressures up to 180s systolic, will increase lisinopril from 20-40 mg daily, Aldactone from 25-50 mg daily. Patient's blood sugars have been elevated significant as well will increase NovoLog 70/30 from AM 20U-25U and PM 10U-15U. Patient encouraged to work with physical therapy today. Patient denies fever, chills, nausea vomiting diarrhea. He endorses generalized weakness and epigastric discomfort. Review of Systems Review of Systems: 10 point ROS complete, negative other than what is specified in HPI. Exam Narrative: - GENERAL:? Pleasant male no acute distress. - EYES: EOMI. Anicteric. - HENT: Moist mucous membranes. - LUNGS: Clear to auscultation bilaterally, no wheezing, rhonchi, or rales. - CARDIOVASCULAR: Regular rate and rhythm. No murmur. No JVD. - ABDOMEN: Soft, non-tender and non-distended. No palpable masses. - EXTREMITIES: No edema. Peripheral pulses 2+.? Amputated left lower extremity - NEUROLOGIC: No focal neurological deficits. CN II-XII grossly intact. - PSYCHIATRIC: Awake, Alert and oriented x 3. Appropriate mood and affect. - SKIN:? Wound on left neck recent carotid endarterectomy - LYMPH: No cervical lymphadenopathy. Objective Data Vital Signs Vital Signs: Vital Signs - 24 hr 05/23/23 13:08 05/23/23 13:47 05/23/23 16:30 Temperature Pulse Rate 74 Respiratory Rate 14 Blood Pressure 196/66 H Pulse Oximetry 98 97 Oxygen Delivery Room Air Room Air 05/23/23 16:32 05/23/23 19:18 05/23/23 20:00 Temperature 36.4 C Pulse Rate 72 73 73 Respiratory Rate 18 18 Blood Pressure 165/67 H Pulse Oximetry 97 97 Oxygen Delivery Room Air 05/24/23 04:45 05/24/23 09:26 05/24/23 09:29 Temperature 36.4 C Pulse Rate 70 77 77 Respiratory Rate 18 Blood Pressure 168/70 H 183/62 H Pulse Oximetry 94 97 Oxygen Delivery 05/24/23 09:30 Temperature Pulse Rate Respiratory Rate Blood Pressure Pulse Oximetry Oxygen Delivery Room Air Intake/Output Intake/Output: Intake & Output 05/21/23 05/22/23 05/23/23 05/24/23 23:59 23:59 23:59 23:59 Intake Total 1620 660 Output Total 3800 1000 Balance -2180 -340 Meds/Results Medications: Active Medications Generic Name Dose Route Start Last Admin Trade Name Freq PRN Reason Stop Dose Admin Acetaminophen 650 mg 05/23/23 00:43 05/24/23 03:56 Acetaminophen 325 Mg Tablet PO 650 mg Q4H PRN Administration Mild Pain (1-3) or Fever Aspirin 81 mg 05/23/23 09:00 05/24/23 09:28
[2023-05-24 12:20] LABS: Glucose Point of Care 267 mg/dl (65-105)
[2023-05-24] MEDS: CYCLOBENZAPRINE HCL 10 MG TABLET PO ×2 (14:53→21:42)
[2023-05-24] MEDS: HYDROcodone/acetaminophen (*CRX) 10-325 MG TABLET 1 TAB PO ×2 (15:40→21:42)
[2023-05-24 16:38] LABS: Glucose Point of Care 141 mg/dl (65-105)
[2023-05-24] MEDS: INSULIN HUMAN ISOPHAN/REGULAR 70/30 (*BKC) 100 UNITS/ML 15 UNITS SUB-Q (17:06)
[2023-05-24 21:20] LABS: Glucose Point of Care 215 mg/dl (65-105)
[2023-05-24] MEDS: hydrOXYzine HCL 25 MG TABLET PO (23:13)
[2023-05-25] MEDS: MORPHINE SULFATE (*CRX) 4 MG/ML INJ IV PUSH (00:30)
[2023-05-25 04:10] VITALS: BP 163/82; PULSE 68; RESP 18; TEMP 36.5; O2SAT 97
[2023-05-25] MEDS: HYDROcodone/acetaminophen (*CRX) 10-325 MG TABLET 1 TAB PO ×2 (04:11→17:08)
[2023-05-25] MEDS: CYCLOBENZAPRINE HCL 10 MG TABLET PO (04:11)
[2023-05-25 05:55] LABS: Basophils Percent Auto 0.2 % (0.2-1.2); Eosinophils Absolute Auto 0.3 K/mm3 (0-0.3); Eosinophils Percent Auto 2.4 % (0-4.4); Hematocrit 35.5 % (42.0-52.0); Hemoglobin 11.8 g/dL (14.0-18.0); Immature Granulocyte Absolute 0.06 K/mm3 (0.00-0.031); Immature Granulocyte Percent A 0.6 % (0-0.5); Lymphocytes Absolute Auto 2.36 K/mm3 (0.9-3.2); Lymphocytes Percent Auto 22.2 % (18.3-44.2); Mean Corpuscular HGB Conc 33.2 g/dl (32-36); Mean Corpuscular Hemoglobin 31.2 pg (26-34); Mean Corpuscular Volume 93.9 fl (80-100); Mean Platelet Volume 11.7 fl (7.4-10.4); Monocytes Absolute Auto 1.2 K/mm3 (0.1-0.6); Monocytes Percent Auto 10.9 % (2.6-8.5); Neutrophils Absolute Auto 6.8 K/mm3 (1.3-6.7); Neutrophils Percent Auto 63.7 % (45.5-73.1); Platelet Count Result 276 k/mm3 (150-375); Red Blood Count 3.78 M/mm3 (4.6-6.20); Red Cell Distribution Width 12.7 % (11.5-14.5); White Blood Count 10.6 K/mm3 (4.5-10.0)
[2023-05-25 06:07] LABS: Anion Gap 7 mmol/L (8-16); Blood Urea Nitrogen 21 mg/dL (9-20); Carbon Dioxide 23 mmol/L (22-30); Chloride 103 mmol/L (98-107); Estimated CRCL calculation 73 ml/min; Estimated Glomerular Filt Rate > 60; Glucose 250 mg/dL (65-110); Potassium 3.9 mmol/L (3.4-5.0); Sodium 133 mmol/L (137-145)
[2023-05-25] MEDS: guaiFENesin/DEXTROMETHORPHAN 10 ML UDC PO (06:25)
[2023-05-25 08:23] LABS: Glucose Point of Care 281 mg/dl (65-105)
[2023-05-25 09:16] VITALS: BP 142/74; PULSE 78; O2SAT 100
[2023-05-25] MEDS: PHENYTOIN SODIUM 100 MG EXTENDED RELEASE CAP PO (09:18)
[2023-05-25] MEDS: CLOPIDOGREL BISULFATE 75 MG TABLET PO (09:18)
[2023-05-25] MEDS: SPIRONOLACTONE 25 MG TABLET 50 MG PO (09:18)
[2023-05-25] MEDS: FLUoxetine HCL 20 MG CAPSULE 80 MG PO (09:19)
[2023-05-25] MEDS: MORPHINE SULFATE (*CRX) 60 MG TABCR PO ×2 (09:19→20:05)
[2023-05-25] MEDS: PANTOPRAZOLE 40 MG TABLET PO (09:20)
[2023-05-25] MEDS: ROSUVASTATIN 10 MG TABLET 40 MG PO (09:20)
[2023-05-25] MEDS: ASPIRIN 81 MG ENTERIC TABLET PO (09:20)
[2023-05-25 09:21] VITALS: PULSE 78
[2023-05-25] MEDS: lisinopriL 20 MG TABLET 40 MG PO (09:21)
[2023-05-25] MEDS: METOPROLOL TARTRATE 50 MG TAB PO ×2 (09:21→17:07)
[2023-05-25] MEDS: polyethylene glycoL 3350 17 GM POWD.PACK PO (09:22)
[2023-05-25] MEDS: GABAPENTIN 300 MG CAPSULE PO ×3 (09:23→17:08)
[2023-05-25] MEDS: FLUTICASONE PROPIONATE 0.05% NA SPR 16 GM BTL (*BKC) 1 SPRAY NASAL ×2 (09:23→20:05)
[2023-05-25] MEDS: INSULIN ASPART (*BKC) 100 UNITS/ML SUB-Q ×2 (09:25→13:28)
[2023-05-25] MEDS: INSULIN HUMAN ISOPHAN/REGULAR 70/30 (*BKC) 100 UNITS/ML 25 UNITS SUB-Q (09:26)
--- NOTE | 2023-05-25 11:11 | PM.IMPN ---
Progress Note: A&P Assessment and Plan (1) Falls frequently: Code(s): R29.6 - Repeated falls Status: Acute Plan # frequent falls -patient having numerous falls yesterday at baseline uses wheelchair and transfers on his own. lives with -PT evaluation: recs for skilled PT for gait training, transfer training -baseline: uses wheelchair, h/o LLE amputation -on x-ray concern for left 8th rib lateral fracture however on CT scan, the fracture was not visualized -continue pain control, bowel regimen -pain control: Resumed home morphine extended release which should help with his pain as we were having difficulty managing with [place] and IVP morphine # right lower extremity cellulitis -patient recently started on Keflex for mg q.6 hours per week, will continue # chronic conditions -hyperlipidemia, CAD, PAD: Aspirin, Plavix, statin, recent CEA left carotid -essential hypertension: Metoprolol,?increased doses of spironolactone and lisinopril -type 2 diabetes:?may need to further increase 70/30 insulin 25U with breakfast and 15U with dinner, sliding scale insulin as well, accucheck ACHS -seizure disorder:? Phenytoin -depression: Fluoxetine -chronic back pain: Resume home extended release morphine 60 mg twice daily -bowel regimen: MiraLax Diet:? Diabetic DVT prophylaxis:??SCDs Code status:??Full code Disposition:?SNF Subjective Date/time seen: 05/25/23 11:11 Interval history: Patient seen and examined. His blood pressure is better with the adjusted med doses, will continue to follow. His blood sugars are also improving to 200s, continue monitoring, we may need to further increase his 70/30 insulin tomorrow. Patient is having significant pain control issues yesterday, we have resumed patient's home extended-release morphine 60 mg twice daily. Patient denies fever, chills, nausea vomiting, diarrhea. Patient continue work with physical therapy. Review of Systems Review of Systems: 10 point ROS complete, negative other than what is specified in HPI. Exam Narrative: - GENERAL:? Pleasant male no acute distress. - EYES: EOMI. Anicteric. - HENT: Moist mucous membranes. - LUNGS: Clear to auscultation bilaterally, no wheezing, rhonchi, or rales. - CARDIOVASCULAR: Regular rate and rhythm. No murmur. No JVD. - ABDOMEN: Soft, non-tender and non-distended. No palpable masses. - EXTREMITIES: No edema. Peripheral pulses 2+.? Amputated left lower extremity - NEUROLOGIC: No focal neurological deficits. CN II-XII grossly intact. - PSYCHIATRIC: Awake, Alert and oriented x 3. Appropriate mood and affect. - SKIN:? Wound on left neck recent carotid endarterectomy, dry scab Objective Data Vital Signs Vital Signs: Vital Signs - 24 hr 05/24/23 14:10 05/24/23 17:05 05/24/23 17:11 Temperature 36.8 C Pulse Rate 64 74 77 Respiratory Rate 20 Blood Pressure 176/86 H 176/69 H Pulse Oximetry 99 99 Oxygen Delivery 05/24/23 19:55 05/25/23 04:10 05/25/23 09:16 Temperature 36.6 C 36.5 C Pulse Rate 72 68 78 Respiratory Rate 16 18 Blood Pressure 161/64 H 163/82 H 142/74 H Pulse Oximetry 98 97 100 Oxygen Delivery 05/25/23 09:21 05/25/23 09:20 Temperature Pulse Rate 78 Respiratory Rate Blood Pressure Pulse Oximetry Oxygen Delivery Room Air Intake/Output Intake/Output: Intake & Output 05/22/23 05/23/23 05/24/23 05/25/23 23:59 23:59 23:59 23:59 Intake Total 1620 1580 790 Output Total 3800 2050 1100 Balance -2180 -470 -310 Meds/Results Medications: Active Medications Generic Name Dose Route Start Last Admin Trade Name Freq PRN Reason Stop Dose Admin Acetaminophen 650 mg 05/23/23 00:43 05/24/23 03:56 Acetaminophen 325 Mg Tablet PO 650 mg Q4H PRN Administration Mild Pain (1-3) or Fever Hydrocodone Bitart/Acetaminophen 1 tab 05/24/23 13:42 Hydrocodone/Acetaminophen (*Crx) 5-325 Mg Tablet PO Q6H PRN Pain Rated 4-6 Hydrocodone Bitart/Acetamino
[2023-05-25 12:16] LABS: Glucose Point of Care 295 mg/dl (65-105)
[2023-05-25 14:00] VITALS: BP 151/60; PULSE 60; RESP 16; TEMP 36.9; O2SAT 99
[2023-05-25 16:59] LABS: Glucose Point of Care 179 mg/dl (65-105)
[2023-05-25 17:07] VITALS: BP 172/70; PULSE 70; O2SAT 99
[2023-05-25] MEDS: INSULIN HUMAN ISOPHAN/REGULAR 70/30 (*BKC) 100 UNITS/ML 15 UNITS SUB-Q (17:09)
[2023-05-25] MEDS: HYDROcodone/acetaminophen (*CRX) 5-325 MG TABLET 1 TAB PO (20:05)
[2023-05-25 20:46] LABS: Glucose Point of Care 180 mg/dl (65-105)
[2023-05-25 22:00] VITALS: BP 127/52; PULSE 56; RESP 12; TEMP 35.8; O2SAT 95
[2023-05-26] MEDS: HYDROcodone/acetaminophen (*CRX) 10-325 MG TABLET 1 TAB PO ×2 (03:23→12:47)
[2023-05-26 06:00] VITALS: BP 97/48; PULSE 53; RESP 12; TEMP 35.6; O2SAT 90
[2023-05-26 06:05] LABS: Basophils Percent Auto 0.2 % (0.2-1.2); Eosinophils Absolute Auto 0.4 K/mm3 (0-0.3); Eosinophils Percent Auto 3.8 % (0-4.4); Hematocrit 36.9 % (42.0-52.0); Hemoglobin 12.1 g/dL (14.0-18.0); Immature Granulocyte Absolute 0.04 K/mm3 (0.00-0.031); Immature Granulocyte Percent A 0.4 % (0-0.5); Lymphocytes Absolute Auto 3.64 K/mm3 (0.9-3.2); Lymphocytes Percent Auto 32.8 % (18.3-44.2); Mean Corpuscular HGB Conc 32.8 g/dl (32-36); Mean Corpuscular Hemoglobin 31.8 pg (26-34); Mean Corpuscular Volume 96.9 fl (80-100); Mean Platelet Volume 11.7 fl (7.4-10.4); Monocytes Absolute Auto 1.4 K/mm3 (0.1-0.6); Monocytes Percent Auto 12.2 % (2.6-8.5); Neutrophils Absolute Auto 5.6 K/mm3 (1.3-6.7); Neutrophils Percent Auto 50.6 % (45.5-73.1); Platelet Count Result 284 k/mm3 (150-375); Red Blood Count 3.81 M/mm3 (4.6-6.20); Red Cell Distribution Width 12.7 % (11.5-14.5); White Blood Count 11.1 K/mm3 (4.5-10.0)
[2023-05-26 06:18] LABS: Alanine Aminotransferase 18 U/L (6-50); Alkaline Phosphatase 139 U/L (38-126); Anion Gap 4 mmol/L (8-16); Aspartate Amino Transferase 26 U/L (17-59); Bilirubin,Total 0.4 mg/dL (0.2-1.3); Blood Urea Nitrogen 25 mg/dL (9-20); Calcium 8.1 mg/dL (8.4-10.2); Carbon Dioxide 26 mmol/L (22-30); Chloride 104 mmol/L (98-107); Estimated CRCL calculation 67 ml/min; Estimated Glomerular Filt Rate 57; Glucose 115 mg/dL (65-110); Potassium 4.2 mmol/L (3.4-5.0); Sodium 134 mmol/L (137-145)
[2023-05-26 08:17] LABS: Glucose Point of Care 135 mg/dl (65-105)
[2023-05-26] MEDS: PANTOPRAZOLE 40 MG TABLET PO (08:38)
[2023-05-26] MEDS: PHENYTOIN SODIUM 100 MG EXTENDED RELEASE CAP PO (08:38)
[2023-05-26] MEDS: MORPHINE SULFATE (*CRX) 60 MG TABCR PO (08:38)
[2023-05-26] MEDS: lisinopriL 20 MG TABLET 40 MG PO (08:38)
[2023-05-26] MEDS: SPIRONOLACTONE 25 MG TABLET 50 MG PO (08:38)
[2023-05-26] MEDS: FLUoxetine HCL 20 MG CAPSULE 80 MG PO (08:38)
[2023-05-26] MEDS: ROSUVASTATIN 10 MG TABLET 40 MG PO (08:38)
[2023-05-26] MEDS: GABAPENTIN 300 MG CAPSULE PO ×3 (08:38→17:02)
[2023-05-26] MEDS: CLOPIDOGREL BISULFATE 75 MG TABLET PO (08:39)
[2023-05-26] MEDS: ASPIRIN 81 MG ENTERIC TABLET PO (08:39)
[2023-05-26 08:40] VITALS: PULSE 57
[2023-05-26] MEDS: METOPROLOL TARTRATE 50 MG TAB PO ×2 (08:40→17:03)
[2023-05-26] MEDS: INSULIN HUMAN ISOPHAN/REGULAR 70/30 (*BKC) 100 UNITS/ML 25 UNITS SUB-Q (08:42)
[2023-05-26 08:49] VITALS: O2SAT 96
[2023-05-26 12:21] LABS: Glucose Point of Care 287 mg/dl (65-105)
[2023-05-26] MEDS: INSULIN ASPART (*BKC) 100 UNITS/ML SUB-Q (12:48)
[2023-05-26 14:00] VITALS: BP 156/59; PULSE 70; RESP 20; TEMP 36.3; O2SAT 98
--- NOTE | 2023-05-26 14:03 | PM.IMPN ---
Progress Note: A&P Assessment and Plan (1) Closed rib fracture: Qualifiers: Encounter type: initial encounter Laterality: left Rib fracture type: single rib Qualified Code(s): S22.32XA - Fracture of one rib, left side, initial encounter for closed fracture Code(s): S22.39XA - Fracture of one rib, unspecified side, initial encounter for closed fracture Status: Acute (2) Falls frequently: Code(s): R29.6 - Repeated falls Status: Acute (3) Hx of adenomatous colonic polyps: Code(s): Z86.010 - Personal history of colonic polyps Status: Acute (4) Abnormal CT scan, gastrointestinal tract: Code(s): R93.3 - Abnormal findings on diagnostic imaging of other parts of digestive tract Status: Acute (5) Abnormal stress test: Code(s): R94.39 - Abnormal result of other cardiovascular function study Status: Acute (6) Nausea & vomiting: Code(s): R11.2 - Nausea with vomiting, unspecified Status: Acute (7) Hypertension: Code(s): I10 - Essential (primary) hypertension Status: Acute (8) Diarrhea: Code(s): R19.7 - Diarrhea, unspecified Status: Acute (9) Acute dehydration: Code(s): E86.0 - Dehydration Status: Acute (10) CHF (congestive heart failure): Code(s): I50.9 - Heart failure, unspecified Status: Acute (11) Leukocytosis: Code(s): D72.829 - Elevated white blood cell count, unspecified Status: Acute (12) Cardiomyopathy: Code(s): I42.9 - Cardiomyopathy, unspecified Status: Acute (13) HFrEF (heart failure with reduced ejection fraction): Code(s): I50.20 - Unspecified systolic (congestive) heart failure Status: Acute (14) Right-sided carotid artery disease: Code(s): I77.9 - Disorder of arteries and arterioles, unspecified Status: Acute (15) Insulin dependent type 2 diabetes mellitus: Code(s): E11.9 - Type 2 diabetes mellitus without complications; 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 lives with -PT evaluation: recs for skilled PT for gait training, transfer training -baseline: uses wheelchair, h/o LLE amputation -on x-ray concern for left 8th rib lateral fracture however on CT scan, the fracture was not visualized -continue pain control, bowel regimen -pain control:? Resumed home morphine extended release 60 mg er q12 which should help with his pain as we were having difficulty managing with [place] and IVP morphine 05/26: the following changes were made. stopped flexiril. reduced fluoxetine to 40 mg/day. reduced morphine ER to 30 mg er q12 (his original home dose. It was increased when he became tolerant to 30) and only ms ir 15mg q4 prn. stopped norco prn and ivp morphine prn. stop robitussin dm (contains opioid) - consider effectiveness of gabapetin outpt. will need slow taper as he has hx of seizures. - did not participate with PT # right lower extremity cellulitis -patient recently started on Keflex for mg q.6 hours per week, will continue # chronic conditions -hyperlipidemia, CAD, PAD: Aspirin, Plavix, statin, recent CEA left carotid -essential hypertension: Metoprolol,?increased doses of spironolactone and lisinopril -type 2 diabetes:?may need to further increase 70/30 insulin 25U with breakfast and 15U with dinner, sliding scale insulin as well, accucheck ACHS Bs 15-287. If we do stricter control of bs, he will likely become hypoglycemic. Not eating much or drinking much water. urine color is dark. -seizure disorder:? Phenytoin -depression: Fluoxetine -chronic back pain:? -bowel regimen: MiraLax Diet:? Diabetic DVT prophylaxis:??SCDs Code status:??Full code Disposition:?SNF Time Spent With Patient Time: 45 min Subjective Date/time seen: 05/26/23 14:03 Interval
[2023-05-26] MEDS: SENNOSIDES 8.6 MG TABLET PO (17:02)
[2023-05-26 17:03] VITALS: PULSE 58
[2023-05-26] MEDS: polyethylene glycoL 3350 17 GM POWD.PACK PO (17:03)
[2023-05-26 17:41] LABS: Glucose Point of Care 118 mg/dl (65-105)
[2023-05-26] MEDS: INSULIN HUMAN ISOPHAN/REGULAR 70/30 (*BKC) 100 UNITS/ML 15 UNITS SUB-Q (17:50)
[2023-05-26] MEDS: FLUTICASONE PROPIONATE 0.05% NA SPR 16 GM BTL (*BKC) 1 SPRAY NASAL (20:25)
[2023-05-26] MEDS: MORPHINE SULFATE (*CRX) 30 MG TABCR PO (20:25)
[2023-05-26 21:52] LABS: Glucose Point of Care 152 mg/dl (65-105)
[2023-05-26 22:00] VITALS: BP 138/52; PULSE 58; RESP 12; TEMP 35.9; O2SAT 97
[2023-05-27] MEDS: MORPHINE SULFATE (*CRX) 15 MG TAB IR PO (04:55)
[2023-05-27 06:00] VITALS: BP 140/60; PULSE 61; RESP 12; TEMP 36; O2SAT 93
[2023-05-27 08:28] LABS: Glucose Point of Care 148 mg/dl (65-105)
[2023-05-27] MEDS: ASPIRIN 81 MG ENTERIC TABLET PO (09:36)
[2023-05-27] MEDS: FLUoxetine HCL 20 MG CAPSULE 40 MG PO (09:36)
[2023-05-27] MEDS: MORPHINE SULFATE (*CRX) 30 MG TABCR PO ×2 (09:36→20:40)
[2023-05-27] MEDS: CLOPIDOGREL BISULFATE 75 MG TABLET PO (09:36)
[2023-05-27] MEDS: lisinopriL 20 MG TABLET 40 MG PO (09:36)
[2023-05-27] MEDS: PHENYTOIN SODIUM 100 MG EXTENDED RELEASE CAP PO (09:37)
[2023-05-27] MEDS: PANTOPRAZOLE 40 MG TABLET PO (09:37)
[2023-05-27] MEDS: SPIRONOLACTONE 25 MG TABLET 50 MG PO (09:37)
[2023-05-27] MEDS: GABAPENTIN 300 MG CAPSULE PO ×3 (09:37→17:23)
[2023-05-27] MEDS: ROSUVASTATIN 10 MG TABLET 40 MG PO (09:37)
[2023-05-27 09:39] VITALS: PULSE 62
[2023-05-27] MEDS: METOPROLOL TARTRATE 50 MG TAB PO ×2 (09:39→17:23)
[2023-05-27] MEDS: INSULIN HUMAN ISOPHAN/REGULAR 70/30 (*BKC) 100 UNITS/ML 25 UNITS SUB-Q (09:40)
[2023-05-27 12:21] LABS: Glucose Point of Care 250 mg/dl (65-105)
[2023-05-27] MEDS: INSULIN ASPART (*BKC) 100 UNITS/ML SUB-Q (13:11)
[2023-05-27 14:00] VITALS: BP 138/60; PULSE 57; RESP 18; TEMP 36.9; O2SAT 100
[2023-05-27 14:26] VITALS: BP 132/51; BP 138/60
[2023-05-27 17:23] VITALS: PULSE 63
[2023-05-27 17:44] LABS: Glucose Point of Care 129 mg/dl (65-105)
[2023-05-27] MEDS: INSULIN HUMAN ISOPHAN/REGULAR 70/30 (*BKC) 100 UNITS/ML 15 UNITS SUB-Q (17:48)
--- NOTE | 2023-05-27 20:31 | PM.IMPN ---
Progress Note: A&P Assessment and Plan (1) Closed rib fracture: Qualifiers: Encounter type: initial encounter Laterality: left Rib fracture type: single rib Qualified Code(s): S22.32XA - Fracture of one rib, left side, initial encounter for closed fracture Code(s): S22.39XA - Fracture of one rib, unspecified side, initial encounter for closed fracture Status: Acute (2) Falls frequently: Code(s): R29.6 - Repeated falls Status: Acute (3) Abnormal CT scan, gastrointestinal tract: Code(s): R93.3 - Abnormal findings on diagnostic imaging of other parts of digestive tract Status: Acute (4) Hx of adenomatous colonic polyps: Code(s): Z86.010 - Personal history of colonic polyps Status: Acute (5) Abnormal stress test: Code(s): R94.39 - Abnormal result of other cardiovascular function study Status: Acute (6) Nausea & vomiting: Code(s): R11.2 - Nausea with vomiting, unspecified Status: Acute (7) Hypertension: Code(s): I10 - Essential (primary) hypertension Status: Acute (8) Acute dehydration: Code(s): E86.0 - Dehydration Status: Acute (9) CHF (congestive heart failure): Code(s): I50.9 - Heart failure, unspecified Status: Acute (10) Diarrhea: Code(s): R19.7 - Diarrhea, unspecified Status: Acute (11) Leukocytosis: Code(s): D72.829 - Elevated white blood cell count, unspecified Status: Acute (12) Cardiomyopathy: Code(s): I42.9 - Cardiomyopathy, unspecified Status: Acute (13) Right-sided carotid artery disease: Code(s): I77.9 - Disorder of arteries and arterioles, unspecified Status: Acute (14) HFrEF (heart failure with reduced ejection fraction): Code(s): I50.20 - Unspecified systolic (congestive) heart failure Status: Acute Plan # frequent falls due to polypharmacy -patient having numerous falls yesterday at baseline uses wheelchair and transfers on his own. lives with -PT evaluation: recs for skilled PT for gait training, transfer training -baseline: uses wheelchair, h/o LLE amputation -on x-ray concern for left 8th rib lateral fracture however on CT scan, the fracture was not visualized -continue pain control, bowel regimen -pain control:? Resumed home morphine extended release 60 mg er q12 which should help with his pain as we were having difficulty managing with [place] and IVP morphine 05/26: the following changes were made.?stopped flexiril. reduced fluoxetine to 40 mg/day. reduced morphine ER to 30 mg er q12 (his original home dose. It was increased when he became tolerant to 30) and only ms ir 15mg q4 prn. stopped norco prn and ivp morphine prn. stop robitussin dm (contains opioid) - consider effectiveness of gabapetin outpt. will need slow taper as he has hx of seizures. - did not participate with PT 05/27: ct changes. add topical lidocaine and voltaren gel. # right lower extremity cellulitis -patient recently started on Keflex for mg q.6 hours per week, will continue # chronic conditions -hyperlipidemia, CAD, PAD: Aspirin, Plavix, statin, recent CEA left carotid -essential hypertension: Metoprolol,?increased doses of spironolactone and lisinopril -type 2 diabetes:?may need to further increase 70/30 insulin 25U with breakfast and 15U with dinner, sliding scale insulin as well, accucheck ACHS Bs 15-287. If we do stricter control of bs, he will likely become hypoglycemic. Not eating much or drinking much water. urine color is dark. -seizure disorder:? Phenytoin -depression: Fluoxetine -chronic back pain:? -bowel regimen: MiraLax Diet:? Diabetic DVT prophylaxis:??SCDs Code status:??Full code Disposition:?SNF Time Spent With Patient Time: 45 min Subjective Date/time seen: 05/27/23 20:31 Interval history: did not work with pt. unable to get out of bed. neurologically much better since medications were reduced. Review of Sys
[2023-05-27 21:10] VITALS: BP 147/57; PULSE 55; RESP 18; TEMP 36.2; O2SAT 95
[2023-05-27 21:33] LABS: Glucose Point of Care 151 mg/dl (65-105)
[2023-05-27] MEDS: LIDOCAINE 5% PATCH 1 PATCH TRANSDERM (22:54)
[2023-05-28] MEDS: MORPHINE SULFATE (*CRX) 15 MG TAB IR PO ×2 (03:06→12:57)
[2023-05-28 04:48] VITALS: BP 155/56; PULSE 55; RESP 16; TEMP 36.6; O2SAT 95
[2023-05-28 08:50] LABS: Glucose Point of Care 209 mg/dl (65-105)
[2023-05-28] MEDS: ROSUVASTATIN 10 MG TABLET 40 MG PO (09:18)
[2023-05-28] MEDS: GABAPENTIN 300 MG CAPSULE PO ×2 (09:18→12:57)
[2023-05-28] MEDS: lisinopriL 20 MG TABLET 40 MG PO (09:19)
[2023-05-28] MEDS: FLUoxetine HCL 20 MG CAPSULE 40 MG PO (09:19)
[2023-05-28] MEDS: PHENYTOIN SODIUM 100 MG EXTENDED RELEASE CAP PO (09:19)
[2023-05-28] MEDS: SPIRONOLACTONE 25 MG TABLET 50 MG PO (09:19)
[2023-05-28] MEDS: PANTOPRAZOLE 40 MG TABLET PO (09:19)
[2023-05-28] MEDS: CLOPIDOGREL BISULFATE 75 MG TABLET PO (09:19)
[2023-05-28] MEDS: ASPIRIN 81 MG ENTERIC TABLET PO (09:19)
[2023-05-28] MEDS: MORPHINE SULFATE (*CRX) 30 MG TABCR PO (09:19)
[2023-05-28] MEDS: FLUTICASONE PROPIONATE 0.05% NA SPR 16 GM BTL (*BKC) 1 SPRAY NASAL (09:20)
[2023-05-28 09:22] VITALS: PULSE 60
[2023-05-28] MEDS: METOPROLOL TARTRATE 50 MG TAB PO (09:22)
[2023-05-28] MEDS: INSULIN HUMAN ISOPHAN/REGULAR 70/30 (*BKC) 100 UNITS/ML 25 UNITS SUB-Q (09:23)
[2023-05-28] MEDS: INSULIN ASPART (*BKC) 100 UNITS/ML SUB-Q (09:24)
--- NOTE | 2023-05-28 12:08 | PM.DS ---
DS: Admitting Diagnosis Discharge Date May 28, 2020 Admitting Diagnosis Fall, polypharmacy DS: Discharge Diagnosis Discharge Diagnosis (1) Closed rib fracture: Qualifiers: Encounter type: initial encounter Laterality: left Rib fracture type: single rib Qualified Code(s): S22.32XA - Fracture of one rib, left side, initial encounter for closed fracture Code(s): S22.39XA - Fracture of one rib, unspecified side, initial encounter for closed fracture Status: Acute (2) Falls frequently: Code(s): R29.6 - Repeated falls Status: Acute (3) Abnormal CT scan, gastrointestinal tract: Code(s): R93.3 - Abnormal findings on diagnostic imaging of other parts of digestive tract Status: Acute (4) Hx of adenomatous colonic polyps: Code(s): Z86.010 - Personal history of colonic polyps Status: Acute (5) Abnormal stress test: Code(s): R94.39 - Abnormal result of other cardiovascular function study Status: Acute (6) Nausea & vomiting: Code(s): R11.2 - Nausea with vomiting, unspecified Status: Acute (7) Hypertension: Code(s): I10 - Essential (primary) hypertension Status: Acute (8) Acute dehydration: Code(s): E86.0 - Dehydration Status: Acute (9) CHF (congestive heart failure): Code(s): I50.9 - Heart failure, unspecified Status: Acute (10) Diarrhea: Code(s): R19.7 - Diarrhea, unspecified Status: Acute (11) Leukocytosis: Code(s): D72.829 - Elevated white blood cell count, unspecified Status: Acute (12) Cardiomyopathy: Code(s): I42.9 - Cardiomyopathy, unspecified Status: Acute (13) Right-sided carotid artery disease: Code(s): I77.9 - Disorder of arteries and arterioles, unspecified Status: Acute (14) HFrEF (heart failure with reduced ejection fraction): Code(s): I50.20 - Unspecified systolic (congestive) heart failure Status: Acute Plan # frequent falls due to polypharmacy -patient having numerous falls yesterday at baseline uses wheelchair and transfers on his own. lives with -PT evaluation: recs for skilled PT for gait training, transfer training -baseline: uses wheelchair, h/o LLE amputation -on x-ray concern for left 8th rib lateral fracture however on CT scan, the fracture was not visualized -continue pain control, bowel regimen -pain control:? Will resume his home medications with the exception of decreasing his opiate. # right lower extremity cellulitis -patient recently started on Keflex for mg q.6 hours per week, will continue # chronic conditions -hyperlipidemia, CAD, PAD: Aspirin, Plavix, statin, recent CEA left carotid -essential hypertension: Metoprolol,?increased doses of spironolactone and lisinopril -type 2 diabetes:?may need to further increase 70/30 insulin 25U with breakfast and 15U with dinner, sliding scale insulin as well, accucheck ACHS Bs 15-287. If we do stricter control of bs, he will likely become hypoglycemic. Not eating much or drinking much water. urine color is dark. -seizure disorder:? Phenytoin -depression: Fluoxetine -chronic back pain:? -bowel regimen: MiraLax Diet:? Diabetic DVT prophylaxis:??SCDs Code status:??Full code Disposition:?SNF Time Spent With Patient Time: 45 min DS: Summary Hospital Course Hospital Course: Patient is a 57-year-old male who was admitted for fall and found have a rib fracture. He was on multiple medications that might have contributed to some dizziness. He reports he was mildly dizzy but he says he was not having any reaction to his medication. He also does not think he is on too much medication. Nonetheless some medication adjustments were made. Some of his medications will be resumed as he is saying he is having significant pain. And he reports improvement on his home medications. Will decrease his opiate on discharge. Otherwise he is going to be discharged to a
[2023-05-28 12:19] LABS: Glucose Point of Care 191 mg/dl (65-105)
== END 2023-05-28 13:59 ==
LOC: ANHED 16:52 → ANH3MED 20:24
PROVIDERS: Admitting Provider Hospitalist; Emergency Provider Nurse Practitioner Family; PCP Family Medicine; Visit Provider Student in an Organized Health Care Education/Training Program
DX: S22.39XA Fracture of one rib, unspecified side, initial encounter for closed fracture (principal); W05.0XXA Fall from non-moving wheelchair, initial encounter; I11.0 Hypertensive heart disease with heart failure; I50.20 Unspecified systolic (congestive) heart failure; M54.50 Low back pain, unspecified; R29.6 Repeated falls; R93.3 Abnormal findings on diagnostic imaging of other parts of digestive tract; B18.2 Chronic viral hepatitis C; I25.10 Atherosclerotic heart disease of native coronary artery without angina pectoris; E11.42 Type 2 diabetes mellitus with diabetic polyneuropathy; E86.0 Dehydration; E11.51 Type 2 diabetes mellitus with diabetic peripheral angiopathy without gangrene; L03.115 Cellulitis of right lower limb; I70.8 Atherosclerosis of other arteries; Q24.9 Congenital malformation of heart, unspecified; R51.9 Headache, unspecified; D72.829 Elevated white blood cell count, unspecified; R94.39 Abnormal result of other cardiovascular function study; I42.9 Cardiomyopathy, unspecified; J90 Pleural effusion, not elsewhere classified; I25.2 Old myocardial infarction; R56.9 Unspecified convulsions; E55.9 Vitamin D deficiency, unspecified; F32.A Depression, unspecified; E78.5 Hyperlipidemia, unspecified; F41.9 Anxiety disorder, unspecified; Z89.612 Acquired absence of left leg above knee; Z87.891 Personal history of nicotine dependence; F12.90 Cannabis use, unspecified, uncomplicated; Z79.82 Long term (current) use of aspirin; Z79.02 Long term (current) use of antithrombotics/antiplatelets; Z79.891 Long term (current) use of opiate analgesic
CPT/HCPCS: 36415; 70450; 71045; 71100; 71260; 74177; 80048; 80053; 82948; 83735; 85025; 85610; 96374; 96376; 97110; 97161; 97166; 97530; 97535; 99285; A9270; G0378; J1815; J2270; Q9967

== ENCOUNTER 2023-06-10 04:39 | Emergency (ER) | payer MEDICARE, SELFPAY ==
[2023-06-10 04:43] VITALS: BP 143/58; PULSE 77; RESP 16; TEMP 36.4; O2SAT 100
--- NOTE | 2023-06-10 05:04 | PC.NURSE ---
Addendum entered by Yasmin Rothman RN 06/10/23 05:07: Hip appears without redness or trauma. Pt rubbing area for pain relief. Original Note: Pt arrives from home with c/o right hip pain. Denies any trauma. States it flares up every few weeks and he comes into the ED, gets medications and goes home without a diagnosis. Pt states that he does have a pain medication
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
[2023-06-10] MEDS: CAPSAICIN 0.025% CREAM 60 GM TUBE 1 APPLIC TOPICAL (05:48)
[2023-06-10] MEDS: LIDOCAINE 5% PATCH 1 PATCH TRANSDERM (05:48)
[2023-06-10] MEDS: CYCLOBENZAPRINE HCL 10 MG TABLET PO (05:48)
[2023-06-10 05:59] VITALS: BP 138/74; PULSE 75; RESP 18; O2SAT 96
== END 2023-06-10 06:00 | disposition home or self-care (01) ==
PROVIDERS: Emergency Provider Emergency Medicine; PCP Family Medicine
DX: G54.6 Phantom limb syndrome with pain (principal); G89.29 Other chronic pain; I42.9 Cardiomyopathy, unspecified; I25.10 Atherosclerotic heart disease of native coronary artery without angina pectoris; I50.9 Heart failure, unspecified; I11.0 Hypertensive heart disease with heart failure; I25.2 Old myocardial infarction; E11.42 Type 2 diabetes mellitus with diabetic polyneuropathy; E11.51 Type 2 diabetes mellitus with diabetic peripheral angiopathy without gangrene; I73.9 Peripheral vascular disease, unspecified; E78.5 Hyperlipidemia, unspecified; E55.9 Vitamin D deficiency, unspecified; B18.2 Chronic viral hepatitis C; M19.012 Primary osteoarthritis, left shoulder; M19.011 Primary osteoarthritis, right shoulder; F32.A Depression, unspecified; F41.9 Anxiety disorder, unspecified; Z95.1 Presence of aortocoronary bypass graft; Z86.010 Personal history of colon polyps; Z87.891 Personal history of nicotine dependence; Z89.612 Acquired absence of left leg above knee; Z79.4 Long term (current) use of insulin; Z79.82 Long term (current) use of aspirin
CPT/HCPCS: 99283; A9270

== ENCOUNTER 2023-06-10 07:13 | Emergency (ER) | payer MEDICARE, SELFPAY ==
[2023-06-10 07:15] VITALS: BP 93/65; PULSE 88; RESP 16; TEMP 36.7; O2SAT 99
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
== END 2023-06-10 07:48 | disposition home or self-care (01) ==
LOC: ANHED 07:42
PROVIDERS: Emergency Provider Emergency Medicine; PCP Family Medicine
DX: G54.6 Phantom limb syndrome with pain (principal); I42.9 Cardiomyopathy, unspecified; I50.9 Heart failure, unspecified; I11.0 Hypertensive heart disease with heart failure; E11.42 Type 2 diabetes mellitus with diabetic polyneuropathy; E11.51 Type 2 diabetes mellitus with diabetic peripheral angiopathy without gangrene; I25.10 Atherosclerotic heart disease of native coronary artery without angina pectoris; E78.5 Hyperlipidemia, unspecified; B19.20 Unspecified viral hepatitis C without hepatic coma; M19.012 Primary osteoarthritis, left shoulder; M19.011 Primary osteoarthritis, right shoulder; F41.9 Anxiety disorder, unspecified; Z95.1 Presence of aortocoronary bypass graft; Z87.891 Personal history of nicotine dependence; Z89.612 Acquired absence of left leg above knee; Z79.82 Long term (current) use of aspirin; Z79.4 Long term (current) use of insulin
CPT/HCPCS: 99281

== ENCOUNTER 2023-06-12 06:56 | Emergency (ER) | payer MEDICARE, SELFPAY ==
[2023-06-12 07:00] VITALS: BP 155/73; PULSE 87; RESP 14; TEMP 36.7; O2SAT 100
[2023-06-12 07:14] VITALS: BP 147/65; PULSE 89; RESP 18; O2SAT 98
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
[2023-06-12] MEDS: KETOROLAC 30 MG/ML VIAL (*BKC) IM (07:34)
== END 2023-06-12 08:52 | disposition home or self-care (01) ==
LOC: ANHED 08:36
PROVIDERS: Emergency Provider Emergency Medicine; PCP Family Medicine
DX: G54.6 Phantom limb syndrome with pain (principal); I42.9 Cardiomyopathy, unspecified; I25.10 Atherosclerotic heart disease of native coronary artery without angina pectoris; I50.9 Heart failure, unspecified; I11.0 Hypertensive heart disease with heart failure; I25.2 Old myocardial infarction; E11.42 Type 2 diabetes mellitus with diabetic polyneuropathy; E11.51 Type 2 diabetes mellitus with diabetic peripheral angiopathy without gangrene; I73.9 Peripheral vascular disease, unspecified; E78.5 Hyperlipidemia, unspecified; E55.9 Vitamin D deficiency, unspecified; B18.2 Chronic viral hepatitis C; M19.012 Primary osteoarthritis, left shoulder; M19.011 Primary osteoarthritis, right shoulder; F32.A Depression, unspecified; F41.9 Anxiety disorder, unspecified; Z86.010 Personal history of colon polyps; Z87.891 Personal history of nicotine dependence; Z89.612 Acquired absence of left leg above knee; Z79.4 Long term (current) use of insulin; Z79.82 Long term (current) use of aspirin
CPT/HCPCS: 96372; 99283; J1885

== ENCOUNTER 2023-06-24 19:18 | Emergency (ER) | payer MEDICARE, SELFPAY ==
[2023-06-24 19:46] VITALS: BP 162/81; PULSE 84; RESP 14; TEMP 36.4; O2SAT 99
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
[2023-06-24] MEDS: KETOROLAC 30 MG/ML VIAL (*BKC) IM (23:58)
[2023-06-24] MEDS: ACETAMINOPHEN 325 MG TABLET 650 MG PO (23:58)
--- NOTE | 2023-06-25 00:15 | PC.NURSE ---
Pt here for chronic pain of L hip/stump area. No injury. STates that he has not been able to get an appt with pain management. Area appears without redness or concern for injury.
[2023-06-25 00:16] VITALS: BP 155/74; PULSE 78; RESP 14; O2SAT 100
== END 2023-06-25 00:17 | disposition home or self-care (01) ==
PROVIDERS: Emergency Provider Physician Assistant; PCP Family Medicine
DX: G89.29 Other chronic pain (principal); E78.5 Hyperlipidemia, unspecified; E11.9 Type 2 diabetes mellitus without complications; I25.10 Atherosclerotic heart disease of native coronary artery without angina pectoris; I25.2 Old myocardial infarction; I10 Essential (primary) hypertension; Z87.891 Personal history of nicotine dependence
CPT/HCPCS: 96372; 99283; A9270; J1885

== ENCOUNTER 2023-07-05 04:28 | Emergency (ER) | payer MEDICARE, SELFPAY ==
[2023-07-05 04:30] VITALS: BP 165/62; PULSE 95; RESP 14; TEMP 36.6; O2SAT 97
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
[2023-07-05] MEDS: KETOROLAC 30 MG/ML VIAL (*BKC) IM (05:43)
[2023-07-05] MEDS: ACETAMINOPHEN 500 MG TABLET 1000 MG PO (05:43)
== END 2023-07-05 06:12 | disposition home or self-care (01) ==
LOC: ANHED 05:47
PROVIDERS: Emergency Provider Emergency Medicine; PCP Family Medicine
DX: G54.6 Phantom limb syndrome with pain (principal); G89.29 Other chronic pain; I42.9 Cardiomyopathy, unspecified; I25.10 Atherosclerotic heart disease of native coronary artery without angina pectoris; I50.9 Heart failure, unspecified; I11.0 Hypertensive heart disease with heart failure; I25.2 Old myocardial infarction; E11.42 Type 2 diabetes mellitus with diabetic polyneuropathy; E11.51 Type 2 diabetes mellitus with diabetic peripheral angiopathy without gangrene; I73.9 Peripheral vascular disease, unspecified; E78.5 Hyperlipidemia, unspecified; E55.9 Vitamin D deficiency, unspecified; B18.2 Chronic viral hepatitis C; M19.012 Primary osteoarthritis, left shoulder; M19.011 Primary osteoarthritis, right shoulder; F32.A Depression, unspecified; F41.9 Anxiety disorder, unspecified; Z86.010 Personal history of colon polyps; Z87.891 Personal history of nicotine dependence; Z89.612 Acquired absence of left leg above knee; Z79.4 Long term (current) use of insulin; Z79.82 Long term (current) use of aspirin
CPT/HCPCS: 96372; 99283; A9270; J1885

== ENCOUNTER 2023-07-09 18:07 | Emergency (ER) | payer MEDICARE, SELFPAY ==
[2023-07-09 18:10] VITALS: BP 143/109; PULSE 101; RESP 16; TEMP 36.2; O2SAT 99
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
[2023-07-09] MEDS: KETOROLAC 30 MG/ML VIAL (*BKC) IM (21:20)
[2023-07-09] MEDS: ACETAMINOPHEN 500 MG TABLET 1000 MG PO (21:21)
== END 2023-07-09 21:27 | disposition home or self-care (01) ==
PROVIDERS: Emergency Provider Physician Assistant; PCP Family Medicine
DX: M79.652 Pain in left thigh (principal); Z89.612 Acquired absence of left leg above knee; G89.29 Other chronic pain; F41.9 Anxiety disorder, unspecified; M19.90 Unspecified osteoarthritis, unspecified site; I11.0 Hypertensive heart disease with heart failure; I50.9 Heart failure, unspecified; I25.10 Atherosclerotic heart disease of native coronary artery without angina pectoris; E11.9 Type 2 diabetes mellitus without complications; Z79.4 Long term (current) use of insulin; I25.2 Old myocardial infarction
CPT/HCPCS: 96372; 99283; A9270; J1885

== ENCOUNTER 2023-07-11 15:03 | Emergency (ER) | payer MEDICARE, SELFPAY ==
[2023-07-11 15:05] VITALS: BP 141/67; PULSE 59; RESP 18; TEMP 36.8; O2SAT 97
--- NOTE | 2023-07-11 16:47 | PC.NURSE ---
pt has been using call light frequently with complaints of pain at stump site. repositioned pt many times and provided ice for the area in pain. notified.
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
[2023-07-11] MEDS: LIDOCAINE 5% PATCH 1 PATCH TRANSDERM (18:08)
[2023-07-11] MEDS: KETOROLAC 30 MG/ML VIAL (*BKC) IM (18:09)
[2023-07-11 18:21] VITALS: BP 141/86; PULSE 67; RESP 19; O2SAT 99
== END 2023-07-11 18:22 | disposition home or self-care (01) ==
PROVIDERS: Emergency Provider Physician Assistant; PCP Family Medicine
DX: G89.29 Other chronic pain (principal); Z89.622 Acquired absence of left hip joint
CPT/HCPCS: 96372; 99283; A9270; J1885

== ENCOUNTER 2023-07-11 21:48 | Emergency (ER) | payer MEDICARE, SELFPAY ==
[2023-07-11 21:55] VITALS: BP 140/64; PULSE 85; RESP 15; TEMP 36.6; O2SAT 98
[2023-07-12] VITALS (11 sets, daily range): BP systolic 168–188; BP diastolic 55–79; PULSE 88; RESP 20; O2SAT 97–100
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
[2023-07-12] MEDS: MORPHINE SULFATE (*CRX) 30 MG TABCR PO (04:04)
== END 2023-07-12 04:28 | disposition home or self-care (01) ==
LOC: ANHED 07-12 04:09
PROVIDERS: Emergency Provider Student in an Organized Health Care Education/Training Program; PCP Family Medicine
DX: G89.29 Other chronic pain (principal); M25.552 Pain in left hip; I25.10 Atherosclerotic heart disease of native coronary artery without angina pectoris; I25.2 Old myocardial infarction; E78.5 Hyperlipidemia, unspecified; E11.9 Type 2 diabetes mellitus without complications; I11.0 Hypertensive heart disease with heart failure; I50.9 Heart failure, unspecified; Z87.891 Personal history of nicotine dependence; Z89.612 Acquired absence of left leg above knee
CPT/HCPCS: 96372; 99283; A9270; J1885

== ENCOUNTER 2023-07-12 05:26 | Emergency (ER) | payer MEDICARE, SELFPAY ==
[2023-07-12 05:27] VITALS: BP 160/72; PULSE 72; RESP 15; TEMP 36.6; O2SAT 100
--- NOTE | 2023-07-12 06:55 | PC.NURSE ---
Spoke to pt in lobby, pt made aware that he was assessed and treated by multiple providers. pt wanting more narcotics. pt made aware that the provider does not feel comfortable writing narcotic pain prescriptions. pt and both educated on need for pain management and close follow up with PCP. pt and then decided to leave, with no desire for evaluation, pt was helped to his vehicle by staff
== END 2023-07-12 07:12 | disposition left against medical advice (07) ==
PROVIDERS: PCP Family Medicine
DX: R52 Pain, unspecified (principal)
CPT/HCPCS: 99199

== ENCOUNTER 2023-07-12 22:57 | Emergency (ER) | payer MEDICARE, SELFPAY ==
[2023-07-12 23:07] VITALS: BP 118/60; PULSE 96; RESP 16; TEMP 36.7; O2SAT 97
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
[2023-07-13] MEDS: ACETAMINOPHEN 500 MG TABLET 1000 MG PO (00:37)
[2023-07-13] MEDS: KETOROLAC 30 MG/ML VIAL (*BKC) IM (00:38)
== END 2023-07-13 00:44 | disposition home or self-care (01) ==
PROVIDERS: Emergency Provider Physician Assistant; PCP Family Medicine
DX: G89.29 Other chronic pain (principal); G54.6 Phantom limb syndrome with pain; I42.9 Cardiomyopathy, unspecified; I25.10 Atherosclerotic heart disease of native coronary artery without angina pectoris; I50.9 Heart failure, unspecified; I11.0 Hypertensive heart disease with heart failure; I25.2 Old myocardial infarction; E11.42 Type 2 diabetes mellitus with diabetic polyneuropathy; E11.51 Type 2 diabetes mellitus with diabetic peripheral angiopathy without gangrene; I73.9 Peripheral vascular disease, unspecified; E78.5 Hyperlipidemia, unspecified; E55.9 Vitamin D deficiency, unspecified; B18.2 Chronic viral hepatitis C; M19.012 Primary osteoarthritis, left shoulder; M19.011 Primary osteoarthritis, right shoulder; F32.A Depression, unspecified; F41.9 Anxiety disorder, unspecified; Z95.1 Presence of aortocoronary bypass graft; Z95.2 Presence of prosthetic heart valve; Z86.010 Personal history of colon polyps; Z87.891 Personal history of nicotine dependence; Z89.612 Acquired absence of left leg above knee; Z79.4 Long term (current) use of insulin; Z79.82 Long term (current) use of aspirin
CPT/HCPCS: 96372; 99283; A9270; J1885

== ENCOUNTER 2023-07-20 05:36 | Emergency (ER) | payer MEDICARE, SELFPAY ==
[2023-07-20 05:37] VITALS: BP 156/66; PULSE 95; RESP 18; TEMP 36.7; O2SAT 99
[2023-07-20 07:31] VITALS: O2SAT 100
--- NOTE | 2023-07-20 07:36 | PC.NURSE ---
pt reports he has been taking 's morphine
[2023-07-20 07:55] VITALS: BP 160/95; PULSE 103; RESP 16; O2SAT 96
[2023-07-20 08:02] VITALS: BP 173/85; PULSE 92; RESP 16; O2SAT 97
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
== END 2023-07-20 09:41 | disposition home or self-care (01) ==
PROVIDERS: Emergency Provider General Practice; PCP Family Medicine
DX: G54.6 Phantom limb syndrome with pain (principal); G89.29 Other chronic pain; I42.9 Cardiomyopathy, unspecified; I50.9 Heart failure, unspecified; I25.10 Atherosclerotic heart disease of native coronary artery without angina pectoris; I11.0 Hypertensive heart disease with heart failure; I25.2 Old myocardial infarction; E78.5 Hyperlipidemia, unspecified; E11.42 Type 2 diabetes mellitus with diabetic polyneuropathy; E11.51 Type 2 diabetes mellitus with diabetic peripheral angiopathy without gangrene; I73.9 Peripheral vascular disease, unspecified; B19.20 Unspecified viral hepatitis C without hepatic coma; M19.012 Primary osteoarthritis, left shoulder; M19.011 Primary osteoarthritis, right shoulder; F32.A Depression, unspecified; F41.9 Anxiety disorder, unspecified; Z95.1 Presence of aortocoronary bypass graft; Z95.2 Presence of prosthetic heart valve; Z86.010 Personal history of colon polyps; Z87.891 Personal history of nicotine dependence; Z89.612 Acquired absence of left leg above knee; Z79.4 Long term (current) use of insulin; Z79.82 Long term (current) use of aspirin
CPT/HCPCS: 99281

== ENCOUNTER 2023-07-25 02:56 | Emergency (ER) | payer MEDICARE, SELFPAY ==
[2023-07-25 02:59] VITALS: BP 159/68; PULSE 102; RESP 20; TEMP 36.8; O2SAT 100
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
[2023-07-25] MEDS: oxyCODONE/ACETAMINOPHEN (*CRX) 5-325 MG TABLET 1 TABLET PO (04:54)
== END 2023-07-25 05:40 | disposition home or self-care (01) ==
LOC: ANHED 05:11
PROVIDERS: Emergency Provider Emergency Medicine; PCP Family Medicine
DX: G54.6 Phantom limb syndrome with pain (principal); G89.29 Other chronic pain; I42.9 Cardiomyopathy, unspecified; I50.9 Heart failure, unspecified; I11.0 Hypertensive heart disease with heart failure; I25.10 Atherosclerotic heart disease of native coronary artery without angina pectoris; I25.2 Old myocardial infarction; E11.42 Type 2 diabetes mellitus with diabetic polyneuropathy; E78.5 Hyperlipidemia, unspecified; B18.2 Chronic viral hepatitis C; M19.012 Primary osteoarthritis, left shoulder; M19.011 Primary osteoarthritis, right shoulder; F32.A Depression, unspecified; F41.9 Anxiety disorder, unspecified; Z86.010 Personal history of colon polyps; Z95.2 Presence of prosthetic heart valve; Z95.1 Presence of aortocoronary bypass graft; Z87.891 Personal history of nicotine dependence; Z89.612 Acquired absence of left leg above knee; Z79.4 Long term (current) use of insulin; Z79.82 Long term (current) use of aspirin
CPT/HCPCS: 99283; A9270

== ENCOUNTER 2023-08-10 11:46 | Emergency (ER) | payer MEDICARE, SELFPAY ==
[2023-08-10 11:49] VITALS: BP 175/47; PULSE 92; RESP 18; TEMP 36.8; O2SAT 96
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
[2023-08-10] MEDS: KETOROLAC 30 MG/ML VIAL (*BKC) IM (13:18)
== END 2023-08-10 13:33 | disposition home or self-care (01) ==
PROVIDERS: Emergency Provider Emergency Medicine; PCP Family Medicine
DX: G54.6 Phantom limb syndrome with pain (principal); G89.29 Other chronic pain; I42.9 Cardiomyopathy, unspecified; I50.9 Heart failure, unspecified; I11.0 Hypertensive heart disease with heart failure; I25.10 Atherosclerotic heart disease of native coronary artery without angina pectoris; I25.2 Old myocardial infarction; E11.42 Type 2 diabetes mellitus with diabetic polyneuropathy; E78.5 Hyperlipidemia, unspecified; B18.2 Chronic viral hepatitis C; M19.012 Primary osteoarthritis, left shoulder; M19.011 Primary osteoarthritis, right shoulder; F32.A Depression, unspecified; F41.9 Anxiety disorder, unspecified; Z86.010 Personal history of colon polyps; Z95.5 Presence of coronary angioplasty implant and graft; Z95.1 Presence of aortocoronary bypass graft; Z87.891 Personal history of nicotine dependence; Z89.612 Acquired absence of left leg above knee; Z79.4 Long term (current) use of insulin; Z79.82 Long term (current) use of aspirin
CPT/HCPCS: 96372; 99283; J1885

== ENCOUNTER 2023-08-16 22:07 | Emergency (ER) | payer MEDICARE, SELFPAY ==
[2023-08-16 22:10] VITALS: BP 148/53; PULSE 81; RESP 12; TEMP 37.1; O2SAT 100
[2023-08-16 22:15] VITALS: BP 136/54; PULSE 73; RESP 13; TEMP 37.1; O2SAT 100
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
[2023-08-17 00:15] VITALS: BP 136/54; PULSE 65; RESP 15; O2SAT 99
== END 2023-08-17 00:35 | disposition home or self-care (01) ==
PROVIDERS: Emergency Provider Emergency Medicine; PCP Family Medicine
DX: Z04.1 Encounter for examination and observation following transport accident (principal); F41.9 Anxiety disorder, unspecified; M19.90 Unspecified osteoarthritis, unspecified site; I11.0 Hypertensive heart disease with heart failure; I50.9 Heart failure, unspecified; E11.9 Type 2 diabetes mellitus without complications; Z79.4 Long term (current) use of insulin; I25.2 Old myocardial infarction
CPT/HCPCS: 99284

== ENCOUNTER 2023-08-28 17:58 | Emergency (ER) | payer MEDICARE, SELFPAY ==
[2023-08-28 18:08] VITALS: BP 175/80; PULSE 91; RESP 14; TEMP 36.4; O2SAT 100
[2023-08-28 19:52] VITALS: BP 166/70; PULSE 84; RESP 17; O2SAT 100
[2023-08-28 19:55] VITALS: BP 166/70; PULSE 84; RESP 17; TEMP 36.4; O2SAT 100
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
[2023-08-28] MEDS: KETOROLAC 30 MG/ML VIAL (*BKC) 15 MG IM (22:25)
[2023-08-28] MEDS: HYDROmorphone HCL (*CRX) 1 MG TABLET PO (22:25)
== END 2023-08-28 22:32 | disposition home or self-care (01) ==
PROVIDERS: Emergency Provider Student in an Organized Health Care Education/Training Program; PCP Family Medicine
DX: G54.6 Phantom limb syndrome with pain (principal); G89.29 Other chronic pain; I42.2 Other hypertrophic cardiomyopathy; I50.9 Heart failure, unspecified; I11.0 Hypertensive heart disease with heart failure; I25.10 Atherosclerotic heart disease of native coronary artery without angina pectoris; I25.2 Old myocardial infarction; E11.42 Type 2 diabetes mellitus with diabetic polyneuropathy; E78.5 Hyperlipidemia, unspecified; B18.2 Chronic viral hepatitis C; M19.012 Primary osteoarthritis, left shoulder; M19.011 Primary osteoarthritis, right shoulder; F32.A Depression, unspecified; F41.9 Anxiety disorder, unspecified; Z86.010 Personal history of colon polyps; Z95.5 Presence of coronary angioplasty implant and graft; Z95.1 Presence of aortocoronary bypass graft; Z87.891 Personal history of nicotine dependence; Z89.612 Acquired absence of left leg above knee; Z79.4 Long term (current) use of insulin; Z79.82 Long term (current) use of aspirin
CPT/HCPCS: 96372; 99283; A9270; J1885

== ENCOUNTER 2023-08-31 19:01 | Emergency (ER) | payer MEDICARE, SELFPAY ==
[2023-08-31 19:06] VITALS: BP 196/94; PULSE 106; RESP 16; TEMP 36.1; O2SAT 100
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
[2023-08-31] MEDS: KETOROLAC 30 MG/ML VIAL (*BKC) IM (22:30)
--- NOTE | 2023-08-31 22:30 | PC.NURSE ---
Pt reports to this Rn when he arrived to ED he was having abd pain, but pt states the pain now moved to my leg, I have stump pain, my stomach is fine .
[2023-08-31 22:35] VITALS: BP 184/79; PULSE 74; RESP 15; TEMP 36.6; O2SAT 98
[2023-08-31 23:34] VITALS: BP 184/79; PULSE 96; O2SAT 100
== END 2023-08-31 23:36 | disposition home or self-care (01) ==
PROVIDERS: Emergency Provider Emergency Medicine; PCP Family Medicine
DX: G54.6 Phantom limb syndrome with pain (principal); I42.2 Other hypertrophic cardiomyopathy; I50.9 Heart failure, unspecified; I11.0 Hypertensive heart disease with heart failure; I25.10 Atherosclerotic heart disease of native coronary artery without angina pectoris; I25.2 Old myocardial infarction; E11.42 Type 2 diabetes mellitus with diabetic polyneuropathy; E78.5 Hyperlipidemia, unspecified; B18.2 Chronic viral hepatitis C; M19.012 Primary osteoarthritis, left shoulder; M19.011 Primary osteoarthritis, right shoulder; F32.A Depression, unspecified; F41.9 Anxiety disorder, unspecified; Z86.010 Personal history of colon polyps; Z95.5 Presence of coronary angioplasty implant and graft; Z95.1 Presence of aortocoronary bypass graft; Z87.891 Personal history of nicotine dependence; Z89.612 Acquired absence of left leg above knee; Z79.4 Long term (current) use of insulin; Z79.82 Long term (current) use of aspirin
CPT/HCPCS: 96372; 99283; J1885

== ENCOUNTER 2023-09-01 02:38 | Emergency (ER) | payer MEDICARE, SELFPAY ==
[2023-09-01 04:51] VITALS: BP 193/73; PULSE 99; RESP 18; TEMP 36.4; O2SAT 99
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
[2023-09-01] MEDS: CYCLOBENZAPRINE HCL 10 MG TABLET PO (09:31)
[2023-09-01] MEDS: KETOROLAC 30 MG/ML VIAL (*BKC) IM (09:31)
[2023-09-01] MEDS: HYDROcodone/acetaminophen (*CRX) 5-325 MG TABLET 1 TAB PO (09:32)
[2023-09-01 09:34] VITALS: BP 141/93; PULSE 81; RESP 15; O2SAT 99
== END 2023-09-01 09:54 | disposition home or self-care (01) ==
PROVIDERS: Emergency Provider Nurse Practitioner Family; PCP Family Medicine
DX: G54.6 Phantom limb syndrome with pain (principal); I42.2 Other hypertrophic cardiomyopathy; I50.9 Heart failure, unspecified; I11.0 Hypertensive heart disease with heart failure; I25.10 Atherosclerotic heart disease of native coronary artery without angina pectoris; I25.2 Old myocardial infarction; E11.42 Type 2 diabetes mellitus with diabetic polyneuropathy; E78.5 Hyperlipidemia, unspecified; B18.2 Chronic viral hepatitis C; M19.012 Primary osteoarthritis, left shoulder; M19.011 Primary osteoarthritis, right shoulder; F32.A Depression, unspecified; F41.9 Anxiety disorder, unspecified; Z95.5 Presence of coronary angioplasty implant and graft; Z95.1 Presence of aortocoronary bypass graft; Z86.010 Personal history of colon polyps; Z87.891 Personal history of nicotine dependence; Z89.612 Acquired absence of left leg above knee; Z79.4 Long term (current) use of insulin; Z79.82 Long term (current) use of aspirin
CPT/HCPCS: 96372; 99283; A9270; J1885

== ENCOUNTER 2023-09-22 20:53 | Emergency (ER) | payer MEDICARE, SELFPAY ==
[2023-09-22 21:05] VITALS: BP 114/85; PULSE 96; RESP 16; TEMP 36.8; O2SAT 100
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
[2023-09-23] MEDS: KETOROLAC 30 MG/ML VIAL (*BKC) IM (03:45)
[2023-09-23] MEDS: ACETAMINOPHEN 500 MG TABLET 1000 MG PO (03:46)
== END 2023-09-23 03:50 | disposition home or self-care (01) ==
LOC: ANHED 09-23 03:21
PROVIDERS: Emergency Provider Emergency Medicine; PCP Family Medicine
DX: G89.29 Other chronic pain (principal); I25.10 Atherosclerotic heart disease of native coronary artery without angina pectoris; E78.5 Hyperlipidemia, unspecified; I10 Essential (primary) hypertension; E11.9 Type 2 diabetes mellitus without complications; I25.2 Old myocardial infarction; Z87.891 Personal history of nicotine dependence
CPT/HCPCS: 96372; 99283; A9270; J1885

== ENCOUNTER 2023-10-03 19:15 | Emergency (ER) | payer MEDICARE, SELFPAY ==
--- NOTE | ~2023-10-03 | CT_ITS ---
EXAMINATION: CT abdomen pelvis w con INDICATION: Left lower quadrant pain TECHNIQUE: Computed tomographic images of the abdomen and pelvis were obtained after the administrati on of 100 cc of Omnipaque 350 intravenous contrast. The dose-length product (DLP) was 727.33 mGy-cm. Automated exposure control and iterative reconstruction technique were employed. COMPARISON: 05/22/2023 FINDINGS: There are moderate-sized left and small right pleural effusions. There is smooth interlobul ar septal thickening in the visualized lung bases. There are minimal airspace opacities of the visual ized lower lobes. There are multiple healing left rib fractures. The liver, spleen, pancreas, gallbla dder, and adrenal glands are normal. The kidneys are unremarkable. No pathologically enlarged abdomin al or pelvic lymph nodes are identified. No free intraperitoneal gas or evidence of bowel obstruction . There is circumferential wall thickening of the urinary bladder. There is calcified atherosclerosis of the aorta and many of the other arteries. The right external iliac artery is occluded with recons titution at the femoral artery. There are changes of left lower limb amputation at the hip. There is mild lumbar spondylosis. IMPRESSION: 1. Circumferential wall thickening of the urinary bladder which could reflect cystitis versus chronic outlet obstruction. 2. Moderate-sized left and small right pleural effusions with associated atelectasis. 3. Pulmonary edema in the visualized lung bases. Reviewed, dictated and finalized at location F. CY ANALYST IMPRESSION: 1. Circumferential wall thickening of the urinary bladder which could reflect c ystitis versus chronic outlet obstruction. 2. Moderate-sized left and small right pleural effusions with associated atelec tasis. 3. Pulmonary edema in the visualized lung bases.
[2023-10-03 19:33] VITALS: BP 184/89; PULSE 104; RESP 15; TEMP 36.3; O2SAT 100
[2023-10-03 20:02] LABS: Basophils Percent Auto 0.3 % (0.2-1.2); Eosinophils Absolute Auto 0.3 K/mm3 (0-0.3); Eosinophils Percent Auto 3.2 % (0-4.4); Hematocrit 36.6 % (42.0-52.0); Hemoglobin 12.3 g/dL (14.0-18.0); Immature Granulocyte Absolute 0.02 K/mm3 (0.00-0.031); Immature Granulocyte Percent A 0.2 % (0-0.5); Mean Corpuscular HGB Conc 33.6 g/dl (32-36); Mean Corpuscular Hemoglobin 30.8 pg (26-34); Mean Corpuscular Volume 91.7 fl (80-100); Mean Platelet Volume 11.5 fl (7.4-10.4); Monocytes Absolute Auto 0.7 K/mm3 (0.1-0.6); Monocytes Percent Auto 7.9 % (2.6-8.5); Neutrophils Absolute Auto 6.8 K/mm3 (1.3-6.7); Neutrophils Percent Auto 72.4 % (45.5-73.1); Platelet Count Result 242 k/mm3 (150-375); Red Blood Count 3.99 M/mm3 (4.6-6.20); Red Cell Distribution Width 12.6 % (11.5-14.5); White Blood Count 9.4 K/mm3 (4.5-10.0)
[2023-10-03 20:40] LABS: Alanine Aminotransferase 21 U/L (6-50); Albumin Level 3.4 g/dL (3.5-5.1); Alkaline Phosphatase 294 U/L (38-126); Anion Gap 6 mmol/L (8-16); Aspartate Amino Transferase 45 U/L (17-59); Bilirubin,Total 0.3 mg/dL (0.2-1.3); Blood Urea Nitrogen 30 mg/dL (9-20); Calcium 8.5 mg/dL (8.4-10.2); Carbon Dioxide 23 mmol/L (22-30); Chloride 96 mmol/L (98-107); Estimated CRCL calculation 80 ml/min; Estimated Glomerular Filt Rate > 60; Glucose 566 mg/dL (65-110); Lipase 81 U/L (23-300); Potassium 4.7 mmol/L (3.4-5.0); Sodium 125 mmol/L (137-145)
[2023-10-04 00:36] LABS: Lactic Acid Reflex 1.1 mmol/L (0.7-2.0)
[2023-10-04] MEDS: INSULIN HUMAN REGULAR (*BKC) 100 UNITS/ML 10 UNITS IV PUSH (01:01)
[2023-10-04] MEDS: SODIUM CHLORIDE 0.9% IV 1,000 ML 999 ML IV CONT (01:01)
[2023-10-04] MEDS: ONDANSETRON INJ 4 MG/2 ML VIAL IV PUSH (01:01)
[2023-10-04] MEDS: KETOROLAC 30 MG/ML VIAL (*BKC) 15 MG IV PUSH (01:01)
[2023-10-04 01:05] VITALS: PULSE 100; RESP 15; O2SAT 98
[2023-10-04 01:38] VITALS: BP 180/78; PULSE 96; RESP 15; O2SAT 100
[2023-10-04 03:11] LABS: Glucose Point of Care 246 mg/dl (65-105)
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
[2023-10-04 03:42] LABS: Appearance Urine Clear (Clear); Bacteria Urine None Seen /hpf; Bilirubin Urine Negative (Negative); Color Urine Yellow (Yellow); Glucose Urine UA 3+ mg/dL (Negative); Ketones Urine Negative (Negative); Leukocyte Esterase Ur Negative LEU/UL (Negative); Nitrate Urine Negative (Negative); Protein Urine 3+ mg/dL (Negative); RBC Urine 0-2 /hpf (0-2); Specific Grav Ur 1.035 (1.001-1.035); Squamous Epithelial Cell Urine None seen /hpf (Few); Urobilinogen Urine 0.2 mg/dL (<2.0); WBC Urine 0-5 /hpf; pH Urine 7.5 (5.0-9.0)
[2023-10-04 03:44] LABS: Add Urine Microscopic? YES
[2023-10-04 04:59] VITALS: BP 178/82; PULSE 95; RESP 15; O2SAT 100
--- NOTE | 2023-10-04 05:09 | PC.NURSE ---
Patient yells out of his room asking what are we waiting on? JUAN LUIS Mcneil informs patient that we are waiting for the CT scan of his abdomen to come back. Patient states he wants to leave against medical advise. Patient signs AMA form and exits to the waiting room without incident.
== END 2023-10-04 05:31 | disposition left against medical advice (07) ==
PROVIDERS: Emergency Provider Emergency Medicine; PCP Family Medicine
DX: R10.32 Left lower quadrant pain (principal); I42.2 Other hypertrophic cardiomyopathy; I50.9 Heart failure, unspecified; I11.0 Hypertensive heart disease with heart failure; I25.10 Atherosclerotic heart disease of native coronary artery without angina pectoris; I25.2 Old myocardial infarction; E11.42 Type 2 diabetes mellitus with diabetic polyneuropathy; E78.5 Hyperlipidemia, unspecified; E11.51 Type 2 diabetes mellitus with diabetic peripheral angiopathy without gangrene; I73.9 Peripheral vascular disease, unspecified; B18.2 Chronic viral hepatitis C; M19.012 Primary osteoarthritis, left shoulder; M19.011 Primary osteoarthritis, right shoulder; F32.A Depression, unspecified; F41.9 Anxiety disorder, unspecified; Z95.5 Presence of coronary angioplasty implant and graft; Z95.1 Presence of aortocoronary bypass graft; Z86.010 Personal history of colon polyps; Z87.891 Personal history of nicotine dependence; Z89.612 Acquired absence of left leg above knee; Z79.4 Long term (current) use of insulin; Z79.82 Long term (current) use of aspirin
CPT/HCPCS: 36415; 74177; 80053; 81001; 82948; 83605; 83690; 85025; 96361; 96374; 96375; 99284; J1815; J1885; J2405; J7030; Q9967

== ENCOUNTER 2023-10-25 17:40 | Inpatient (IN) | payer MEDICARE, SELFPAY ==
[2023-10-25] VITALS (31 sets, daily range): BP systolic 153–189; BP diastolic 66–95; PULSE 85–109; RESP 7–27; TEMP 35.7; O2SAT 90–100; BMI 22.8
--- NOTE | ~2023-10-25 | XR_ITS ---
EXAMINATION: XR chest 1V portable INDICATION: Aspiration TECHNIQUE: Portable AP chest at 0832 hours COMPARISON: 10/25/2023 FINDINGS: The nasogastric tube is followed as far as the stomach. Its tip is beyond the inferior vicky in of the radiograph. There are small pleural effusions. Left basilar airspace opacities persist but have improved. Airspace opacities of the right lung have nearly completely resolved. The heart size i s normal. Median sternotomy wires and mediastinal surgical clips are seen, likely from prior coronary artery bypass grafting. A linear metallic density is demonstrated to be within the left pectoralis m uscle on the comparison CT. There are healing left rib fractures. IMPRESSION: 1. Persistent but improved airspace opacities of the lung bases, consistent with atelectasis versus p neumonia. 2. Small pleural effusions. Reviewed, dictated and finalized at location B. WIRE ARTIST IMPRESSION: 1. Persistent but improved airspace opacities of the lung bases, consistent wit h atelectasis versus pneumonia. 2. Small pleural effusions.
--- NOTE | ~2023-10-25 | XR_ITS ---
EXAM: XR abdomen gastric tube insert DATE: 10/28/2023 21:02 HISTORY: NG placement . COMPARISON: None available. FINDINGS: Diffuse reticular opacities. Left basilar airspace disease and costophrenic angle blunting . Normal upper abdominal bowel gas pattern. NG tube, tip over the stomach, side port at the GE juncti on. Multiple fractured and displaced sternotomy wires. IMPRESSION: Shallow positioning of the NG tube, consider advancing 4 cm. Reviewed, dictated and finalized at location K. WASHER PREPARER
--- NOTE | ~2023-10-25 | CT_ITS ---
EXAMINATION: CT brain wo con DATE: 10/28/2023 09:56 INDICATION: Left hemiparesis TECHNIQUE: Computed tomography (CT) of the head was performed without intravenous contrast. Sagittal and coronal reconstructions were performed. The mA was adjusted according to patient size. Iterative reconstruction technique was employed. The dose-length product was 605.33 mGy-cm. COMPARISON: head CT dated 05/22/2023 FINDINGS: No acute intracranial hemorrhage, acute infarction or abnormal extra axial fluid collection. Again se en are regions of encephalomalacia consistent with chronic infarcts in the bilateral frontal lobes, t he left parietal lobe and left parieto-occipital region. Additional small old infarct in the right pa rieto-occipital region which is new since the prior CT. There is moderate scattered white matter hypo attenuation consistent with chronic small vessel ischemic disease. Symmetric prominence of the sulci consistent with mild to moderate diffuse cerebral volume loss which is disproportionate for age.. Hany tricles are normal and symmetric. No mass/mass effect. The orbits, paranasal sinuses and mastoid air cells are normal. IMPRESSION: 1. No acute intracranial process. 2. Multiple unchanged old infarcts in the bilateral cerebral hemispheres and additional small old inf arct in the right parietal occipital region which is new since the prior study. Reviewed, dictated and finalized at location A. ET PRESSMAN IMPRESSION: 1. No acute intracranial process. 2. Multiple unchanged old infarcts in the bilateral cerebral hemispheres and ad ditional small old infarct in the right parietal occipital region which is new since the prior study.
--- NOTE | ~2023-10-25 | XR_ITS ---
Upright portable views of the abdomen Clinical history: NG tube placed Findings: NG tube side-port probably just at the GE junction. Further advancement of the stomach advi sed. Bowel gas pattern is nonspecific. No evidence for obstruction or free air. No abnormal mass lesi on or calcification is seen. Osseous structures are intact. Small left pleural effusion noted. Impression: NG tube side-port probably just at the GE junction region. Further advancement into the stomach advis ed. Reviewed, dictated and finalized at location M. ATIONS CONTROLLER Impression: NG tube side-port probably just at the GE junction region. Further advancement into the stomach advised.
--- NOTE | ~2023-10-25 | XR_ITS ---
EXAMINATION: XR abdomen gastric tube insert INDICATION: NG placement TECHNIQUE: Portable AP KUB-NG at 0833 hours COMPARISON: 10/29/2023 FINDINGS: The tip of the nasogastric tube is in the stomach. The proximal side port is in the distal esophagus. There are airspace opacities of the left lung base. A moderate volume of colonic stool is present. IMPRESSION: 1. Tip of the nasogastric tube in the stomach with proximal side port in the distal esophagus. Recomm end advancing. Reviewed, dictated and finalized at location B. L RECEPTIONIST IMPRESSION: 1. Tip of the nasogastric tube in the stomach with proximal side port in the di stal esophagus. Recommend advancing.
--- NOTE | ~2023-10-25 | XR_ITS ---
EXAMINATION: XR chest 2V Exam Date/Time: 10/25/2023 18:50 NAILING MACHINE OPERATOR AUTOMATIC HISTORY: SOB Comparison: 05/22/2023. RESULT: Lines, tubes, and devices: Multiple fractured sternotomy wires, displaced from the normal position. 2.4 cm wire segment projecting over the anterior mediastinum. Lungs and pleura: Moderate diffuse interstitial opacities. Patchy glass airspace disease in the left lower lung. Mild left costophrenic angle blunting. Cardiomediastinal silhouette: Stable. Other: No acute osseous or upper abdominal finding. IMPRESSION: Moderate edema. Atelectasis/consolidation in the left lung base. Small left pleural effusion. Multipl e fractured sternotomy wires with wire migration. Reviewed, dictated and finalized at location K. ING MACHINE OPERATOR AUTOMATIC IMPRESSION: Moderate edema. Atelectasis/consolidation in the left lung base. Small left ple ural effusion. Multiple fractured sternotomy wires with wire migration.
--- NOTE | ~2023-10-25 | XR_ITS ---
EXAMINATION: XR barium swallow modified DATE: 11/01/2023 09:25 INDICATION: Dysphagia. TECHNIQUE: The patient was given barium-containing material of multiple consistencies to swallow by zunilda steel speech pathologist while I performed fluoroscopy. Dose-area product was 2.04 Gy-cm2. 3.3 minutes fluoroscopy time FINDINGS: Oral Stage: Reduced labial seal attention Reduced lingual movement Pharyngeal Phase: Reduced laryngeal elevation Reduced tongue base retraction Moderate vallecular residue Laryngeal penetration with thin and mildly thick liquids Cervical/Esophageal Stage: Within functional limits IMPRESSION: Modified esophagram findings as above. Please refer to the speech therapy report for [facility]. Reviewed, dictated and finalized at Location A. Reviewed, dictated and finalized at location A. HER AND BINDER OPERATOR IMPRESSION: Modified esophagram findings as above. Please refer to the speech t herapy report for specific recommendations.
--- NOTE | ~2023-10-25 | CT_ITS ---
EXAMINATION: CTA chest PE abdomen pel DATE: 10/25/2023 20:18 INDICATION: dyspnea, eval for PE, elevated LFT's TECHNIQUE: Computed tomography angiography (CTA) of the chest was performed with 100 mL Omnipaque-350 intravenous contrast timed to evaluate the pulmonary arteries, followed by portal venous phase imagi ng of the abdomen and pelvis. Coronal maximum intensity projection 3D-reconstructions were created by the technologist. The dose-length product (DLP) was 2043.25 mGy-cm. Automated exposure control and i terative reconstruction technique were employed. COMPARISON: X-ray chest, same date; CT abdomen pelvis 10/04/2023; CT cap 05/22/2023. FINDINGS: CHEST: Lung parenchyma and airways: Linear bands of consolidation in the left lower lung. Displaced sternoto my wire fragment over the left pectoralis major muscle. Pleura: Large, possibly loculated left and moderate right pleural fluid collections. Thoracic inlet, axillae and chest wall: Bilateral symmetric gynecomastia. Mild chest wall edema. Thoracic aorta: Moderate arch calcification. No aneurysm or dissection. Mediastinum: Mediastinal surgical clips.. Heart and pericardium: Normal. Coronary artery calcifications: Moderate. Thoracic bones: Multiple fractured sternotomy wires. Lack of osseous fusion at the sternum. Slight di splacement of the mid and distal portions of the sternum. Pulmonary arteries: Study quality: Adequate. No pulmonary emboli detected. ABDOMEN/PELVIS: Liver: Normal. Biliary/Gallbladder: Gallbladder mucosal hyperemia, no surrounding inflammatory change or stones. No bile duct dilation. Pancreas: Mild atrophy. Spleen: Normal. Adrenals:No mass. Kidneys: No suspicious mass, obstructing stone, or hydronephrosis. Mild bilateral cortical thinning. GI tract: Mild distal esophageal and gastric wall edema. No small or large bowel dilation. Normal sonja endix. Mesentery/Peritoneum: No ascites, mass, or free air. Retroperitoneum: No mass. Atherosclerotic abdominal aortic and/or arterial calcifications. Left commo n iliac artery occlusion. Right external iliac artery occlusion, with distal reconstitution. Pelvis: Moderate urinary bladder wall thickening. Normal sized prostate. Soft Tissues: Diffuse body wall edema. Abdominopelvic bones: No acute osseous finding. Old left pelvic fractures. Heterotopic bone formatio n at the left hip. Status post left leg amputation. IMPRESSION: No CT evidence of acute pulmonary embolus. Mild pulmonary edema. Linear bands of left lower lung consolidation, likely atelectasis. Infection is not excluded. Large left, possibly loculated pleural effusion. Moderate right pleural effusion. Lack of osseous fusion of the sternum, multiple fractured sternotomy wires, and slight displacement o f the mid and inferior sternum, correlate for clinical findings of sternal dehiscence. The displaced sternotomy wire fragment which appeared to project over the anterior mediastinum in the prior radiographs is located over the left pectoralis muscle. Mild esophagitis/gastritis. Mild gallbladder wall hyperemia, without inflammatory changes or stones. Correlate with biliary labs and symptoms right upper quadrant pain. Bladder wall thickening as can be seen with cystitis. Mild diffuse body wall edema. Reviewed, dictated and finalized at location K. N DRILLER IMPRESSION: No CT evidence of acute pulmonary embolus. Mild pulmonary edema. Linear bands of left lower lung consolidation, likely ate lectasis. Infection is not excluded. Large left, possibly loculated pleural effusion. Moderate right pleural effusio n. Lack of osseous fusion of the sternum, multiple fractured sternotomy wires, and slight displacement of the mid and inferior sternum, correlate for cl
--- NOTE | ~2023-10-25 | XR_ITS ---
EXAMINATION: XR abdomen gastric tube rechec DATE: 10/31/2023 17:57 INDICATION: Nasogastric tube placement. TECHNIQUE: A single view of the abdomen was obtained. COMPARISON: Abdomen radiograph at 3:27 PM FINDINGS: The lower abdomen is excluded. The nasogastric tube tip is in the stomach. Median sternotom y wires and mediastinal surgical clips are seen, likely from prior coronary artery bypass grafting. T he median sternotomy wires are all broken. There is a wire fragment in anterior left chest. There is a moderate-sized left pleural effusion. There are airspace opacities in left mid and lower lung zones . There are old healed left rib fractures. IMPRESSION: 1. Nasogastric tube tip in the stomach. 2. Moderate-sized left pleural effusion. 3. Airspace opacities in left mid and lower lung zones, consistent with atelectasis versus pneumonia. Reviewed, dictated and finalized at location E. MATIC ENGRAVER IMPRESSION: 1. Nasogastric tube tip in the stomach. 2. Moderate-sized left pleural effusion. 3. Airspace opacities in left mid and lower lung zones, consistent with atelect asis versus pneumonia.
--- NOTE | ~2023-10-25 | XR_ITS ---
EXAMINATION: XR abdomen gastric tube rechec DATE: 10/31/2023 15:52 INDICATION: Nasogastric tube advancement TECHNIQUE: A supine view of the abdomen and lower chest was obtained for evaluation of feeding tube placement. COMPARISON: 10/30/2023 FINDINGS: Nasogastric tube tip in proximal side port within the body of the stomach. There is some residual ora l contrast material within the colon. No dilated loops of gas-filled bowel to suggest obstruction. Op acities at the left lung base which include a small left pleural effusion. Heart size is normal. Agai n noted are multiple fractured median sternotomy wires. Right common iliac artery stent. Couple heali ng anterior left rib fractures. IMPRESSION: 1. Nasogastric tube in the stomach. 2. Opacities in the left lower lung zone consistent with small left pleural effusion and associated a telectasis and/or pneumonia. Reviewed, dictated and finalized at location A. RIAL HANDLER IMPRESSION: 1. Nasogastric tube in the stomach. 2. Opacities in the left lower lung zone consistent with small left pleural eff usion and associated atelectasis and/or pneumonia.
--- NOTE | ~2023-10-25 | XR_ITS ---
EXAMINATION: XR abdomen gastric tube rechec DATE: 10/29/2023 14:38 INDICATION: Nasogastric tube advancement. TECHNIQUE: A supine view of the abdomen on 2 radiographs was obtained. COMPARISON: CT abdomen and pelvis 10/25/2023 FINDINGS: The lower abdomen is excluded. There are multiple dilated loops of small bowel. The nasogas tric tube tip is in the distal stomach. There are small right and moderate-sized left pleural effusio ns. Median sternotomy wires are noted. IMPRESSION: 1. Nasogastric tube tip in the distal stomach. 2. Dilated small bowel, likely adynamic ileus. Reviewed, dictated and finalized at location E. ER
--- NOTE | ~2023-10-25 | XR_ITS ---
EXAMINATION: XR abdomen gastric tube insert DATE: 10/29/2023 20:25 INDICATION: New nasogastric tube placement. TECHNIQUE: An upright view of the abdomen was obtained. COMPARISON: Abdomen radiograph at 2:19 PM FINDINGS: The lower abdomen is excluded. The nasogastric tube tip is in the distal stomach. Median st ernotomy wires and mediastinal surgical clips are seen, likely from prior coronary artery bypass cornelio ting. There is a moderate-sized left pleural effusion. IMPRESSION: 1. Nasogastric tube tip in the distal stomach. 2. Moderate-sized left pleural effusion. Reviewed, dictated and finalized at location E. PROGRAMMER ANALYST
--- NOTE | ~2023-10-25 | MR_ITS ---
EXAMINATION: MR brain/brain stem wo con DATE: 11/02/2023 07:32 INDICATION: Left hemiparesis. TECHNIQUE: Magnetic resonance imaging (MRI) of the brain and brainstem was performed without intraven ous contrast. COMPARISON: Brain MRI 10/28/2022 CTA 10/28/2023 FINDINGS: There are patchy acute infarcts involving the right frontal, parietal, temporal, and occipi jeremy lobes. There are scattered areas of nonspecific increased T2-weighted signal intensity in the cer ebral white matter and sean. There are old infarcts involving the left frontal, parietal, temporal, a nd occipital lobes and left basal ganglia. There is no abnormal mass lesion or intracranial hemorrhag e. The ventricles are normal in size. The orbits are normal. The mastoid air cells are normal. There is loss of the normal right internal carotid artery flow void. IMPRESSION: 1. Patchy acute infarcts involving the right frontal, parietal, temporal, and occipital lobes. 2. Old infarcts involving the left frontal, parietal, temporal, and occipital lobes and left basal ga nglia. 3. Moderate nonspecific cerebral white matter disease and pontine disease, which likely represents ch ronic small vessel ischemic disease. 4. 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 Reviewed, dictated and finalized at location E. IMPRESSION: 1. Patchy acute infarcts involving the right frontal, parietal, temporal, and o ccipital lobes. 2. Old infarcts involving the left frontal, parietal, temporal, and occipital l obes and left basal ganglia. 3. Moderate nonspecific cerebral white matter disease and pontine disease, whic h likely represents chronic small vessel ischemic disease. 4. 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
--- NOTE | ~2023-10-25 | XR_ITS ---
Upright portable view of the abdomen Clinical history: NG tube placement Findings: NG tube in satisfactory position. Bowel gas pattern is nonspecific. No evidence for obstruc tion or free air. No abnormal mass lesion or calcification is seen. Osseous structures are intact. Sm all pleural effusion noted. Impression: NG tube in satisfactory position. Small left pleural effusion noted. Reviewed, dictated and finalized at [facility]. RVISOR SPEECH Impression: NG tube in satisfactory position. Small left pleural effusion noted.
--- NOTE | ~2023-10-25 | XR_ITS ---
MODIFIED ESOPHAGRAM HISTORY: Stroke with left facial droop TECHNIQUE: Modified barium esophagram was performed on 10/28/2023. I administered fluoroscopy and perfo rmed the exam with speech pathologist. Patient was seated for lateral fluoroscopic imaging for inges tion of thin liquids, pudding, solids and quantified amounts, followed by thin liquids in uncontrolle d amounts. This was recorded on tape. A single fluoroscopic spot image was also recorded. The DAP for this procedure was 1.9 Gycm2. The amount of fluoroscopy time used during this procedure was 2.8 lisa drew. FINDINGS: Oral stage: Reduced lingual movement. Pharyngeal stage: There is reduced laryngeal elevation and adduction. Reduced tongue base retraction and pharyngeal squeeze. There is vallecular and piriform sinus residue. There is laryngeal penetratio n and aspiration during the swallow with thin liquids and following the swallow with thin liquids and pudding consistencies including with chin tuck. Cervical/esophageal stage: Adequate function. IMPRESSION: Pharyngeal dysphagia with laryngeal penetration and aspiration. Please correlate with sp eech pathologist findings and specific feeding recommendations. Reviewed, dictated and finalized at location A. NG MACHINE OPERATOR IMPRESSION: Pharyngeal dysphagia with laryngeal penetration and aspiration. Pl ease correlate with speech pathologist findings and specific feeding recommenda tions.
--- NOTE | ~2023-10-25 | CT_ITS ---
EXAMINATION: CTA BRAIN/CAROTID DATE: 10/28/2023 14:00 INDICATION: Left facial droop TECHNIQUE: Computed tomographic angiography (CTA) of the head and neck was performed with 100 mL Omni paque-350 intravenous contrast. Multiplanar reconstructions and maximum intensity projection 3D-recon structions of the carotid arteries and of the intracranial arteries were created by the technologist on a separate workstation. Precontrast CT of the head was also obtained. Automated exposure control and iterative reconstruction technique were employed.The dose-length product was 1243.08 mGy-cm. COMPARISON: None. FINDINGS: Carotid arteries: Scattered atherosclerotic plaque without hemodynamic significant stenosis along the normal caliber ao rtic arch and along the innominate and left common carotid arteries. There is atherosclerotic plaque with 30% stenosis at the proximal left subclavian artery. There is 0 % stenosis of the left carotid b ulb relative to normal distal artery lumen diameter (NASCET criteria). There is complete occlusion of the right internal carotid artery beginning at the carotid bulb. There is atherosclerotic plaque at the origins of the bilateral vertebral arteries which appears potentially minimally significant on th e right however definitive assessment is limited both by the small caliber of the vessel at this loca tion as well as the presence of streak artifact associated with the calcification. Again seen are saida ateral pleural effusions with a small in the right and [id number] and likely at least partiall y loculated on the left. Respiratory motion and some dependent compressive atelectasis in the visuali zed upper lungs. Reversal of the normal cervical lordosis with moderate disc height loss with degener ative endplate changes at C5-C6. Median sternotomy wires and mediastinal surgical clips are seen cons istent with prior coronary artery bypass grafting. Intracranial arteries Bilateral vertebral arteries are codominant. There is no hemodynamically significant stenosis in the vertebral or basilar arteries. The bilateral P1 segments are patent. Prominent atherosclerotic calcifications at the bilateral carotid siphons and petrous portion of the bilateral carotid arteries. There is up to 40% stenosis at the left carotid siphon. The petrous porti on the thrombosis of the extracranial right internal carotid artery extends into the petrous portion and proximal carotid siphon with reconstitution of flow beginning at the right carotid siphon which a ppears to arise from the right ophthalmic artery. There are tiny patent bilateral posterior communica ting arteries which may also supply some collateral flow to the right M1 segment which appears symmet katja when compared with the contralateral left M1 segment. The contrast opacified lumen of the distal right carotid siphon appears small however is unclear whether this is reflective of the severity of a therosclerotic disease at this location or flow-limiting resupply via the ophthalmic artery. Cerebral arterial arborization appears symmetric. IMPRESSION: 1. Complete occlusion of the right internal carotid artery beginning at the distal bulb with resupply beginning at the carotid siphon likely via the right ophthalmic artery with likely additional resupp ly supplied via a patent right posterior commuting artery. 2. 0% stenosis of the left carotid bulb relative to normal distal artery lumen diameter (NASCET crite pastora). 3. Bilateral pleural effusions. Reviewed, dictated and finalized at location A. [employer] IMPRESSION: 1. Complete occlusion of the right internal carotid artery beginning at the dis jeremy bulb with resupply beginning at the carotid siphon likely via the right oph thalmic artery with likely additional resupply supplied via a patent right post erio
--- NOTE | ~2023-10-25 | XR_ITS ---
XR chest 1V portable DATE: 11/02/2023 09:29 INDICATION: Aspiration. Pneumonia. TECHNIQUE: Portable upright AP views on 11/02/2023 at 0921 hours COMPARISON: 10/31/2023 portable AP chest FINDINGS: Status post sternotomy. Normal heart size. Aortic arch calcification, mild aortic unfolding . Mild pleural effusions, left greater than right. Patchy infiltrate or atelectasis of left mid and both lower lung zones, left greater than right. No p neumothorax. Osteopenia. IMPRESSION: Left mid and bilateral lower lung infiltrate and/or atelectasis, left greater than right Small pleural effusions, left greater than right Little interval change since 10/31/2023 considering technical differences Reviewed, dictated and finalized at location A. IMPRESSION: Left mid and bilateral lower lung infiltrate and/or atelectasis, le ft greater than right Small pleural effusions, left greater than right Little interval change since 10/31/2023 considering technical differences
--- NOTE | 2023-10-25 17:41 | ECG_ITS ---
Measurements Intervals [place] Rate: 92 P: 49 UT: 171 QRS: 26 QRSD: 104 T: 13 QT: 361 QTc: 447 Interpretive Statements SINUS RHYTHM LEFT ATRIAL ENLARGEMENT MINIMAL Q WAVES- INFERIOR LEADS NONSPECIFIC ST-T WAVE ABNORMALITY- DIFFUSE LEADS BASELINE ARTIFACT- I, II, AVR BORDERLINE ECG COMPARED TO ECG 05/17/2023 01:36:20 NO SIGNIFICANT CHANGES Electronically Signed On 10-25-2023 20:39:16 DENTAL ASSISTANT INSTRUCTOR by Dylan Baker D.O.
[2023-10-25 18:42] LABS: Alanine Aminotransferase 244 U/L (6-50); Albumin Level 3.3 g/dL (3.5-5.1); Alkaline Phosphatase 309 U/L (38-126); Anion Gap 9 mmol/L (8-16); Aspartate Amino Transferase 229 U/L (17-59); Bilirubin,Total 0.5 mg/dL (0.2-1.3); Blood Urea Nitrogen 39 mg/dL (9-20); Calcium 8.4 mg/dL (8.4-10.2); Carbon Dioxide 21 mmol/L (22-30); Chloride 102 mmol/L (98-107); Estimated CRCL calculation 62 ml/min; Estimated Glomerular Filt Rate 56; Glucose 281 mg/dL (65-110); Potassium 4.2 mmol/L (3.4-5.0); Sodium 132 mmol/L (137-145)
[2023-10-25 18:56] LABS: Basophils Percent Auto 0.4 % (0.2-1.2); Eosinophils Absolute Auto 0.1 K/mm3 (0-0.3); Eosinophils Percent Auto 1.1 % (0-4.4); Hematocrit 39.2 % (42.0-52.0); Hemoglobin 12.7 g/dL (14.0-18.0); Immature Granulocyte Absolute 0.03 K/mm3 (0.00-0.031); Immature Granulocyte Percent A 0.3 % (0-0.5); Lymphocytes Absolute Auto 1.72 K/mm3 (0.9-3.2); Lymphocytes Percent Auto 17.6 % (18.3-44.2); Mean Corpuscular HGB Conc 32.4 g/dl (32-36); Mean Corpuscular Hemoglobin 30.2 pg (26-34); Mean Corpuscular Volume 93.3 fl (80-100); Mean Platelet Volume 11.6 fl (7.4-10.4); Monocytes Absolute Auto 1.1 K/mm3 (0.1-0.6); Monocytes Percent Auto 11.5 % (2.6-8.5); Neutrophils Absolute Auto 6.7 K/mm3 (1.3-6.7); Neutrophils Percent Auto 69.1 % (45.5-73.1); Platelet Count Result 262 k/mm3 (150-375); White Blood Count 9.8 K/mm3 (4.5-10.0)
[2023-10-25] MEDS: NITROGLYCERIN SL 0.4 MG TABLET SUBLINGUAL (19:40)
--- NOTE | 2023-10-25 19:41 | PC.NURSE ---
1940: 1st dose of nitro given 1939. CP was rated 5/10, HR 93, RR 26, O2 97%, BP 179/80. 1944: 2nd dose of nitro given 1944. CP was rated 3/10, HR 93, RR 24, O2 96 %, BP 180/77. 1946 : Pt had c/o increase in CP 7/10. ERP Notified. OK to give the 3rd dose of Nitro. 1949: 3rd dose of nitro given 1949. CP was rated 3/10, HR 92, RR 24, O2 93 %, BP 153/66.
[2023-10-25 20:03] LABS: Prothrombin Time 14.1 Seconds (11.1-14.7)
[2023-10-25 20:04] LABS: Partial Thromboplastin Time 30.3 SECONDS (22.3-36.8)
[2023-10-25 20:20] LABS: Lactic Acid Reflex 1.2 mmol/L (0.7-2.0)
[2023-10-25 20:26] LABS: NT Pro B Type Natriuretic Pept 21100 pg/mL (19.9-100)
[2023-10-25 20:27] LABS: Procalcitonin 0.3 ng/mL
[2023-10-25 20:53] LABS: Influenza A QL RT-PCR Negative (Negative); Influenza B QL RT-PCR Negative (Negative); RSV RNA, RT-PCR Negative (Negative); SARS-CoV-2 RNA PCR Negative (Negative)
[2023-10-25 21:00] LABS: Appearance Urine Clear (Clear); Bacteria Urine None Seen /hpf; Bilirubin Urine Negative (Negative); Blood Urine 1+ (Negative); Color Urine Yellow (Yellow); Glucose Urine UA 3+ mg/dL (Negative); Hyaline Casts Urine Present /lpf; Ketones Urine 1+ mg/dL (Negative); Leukocyte Esterase Ur Negative LEU/UL (Negative); Need Manual Microscopic Reviewed; Nitrate Urine Negative (Negative); Protein Urine 4+ mg/dL (Negative); RBC Urine 0-2 /hpf (0-2); Specific Grav Ur 1.022 (1.001-1.035); Squamous Epithelial Cell Urine None seen /hpf (Few); WBC Urine 0-5 /hpf
[2023-10-25 21:02] LABS: Add Urine Microscopic? YES
[2023-10-25] MEDS: ASPIRIN 81 MG CHEWABLE TABLET 324 MG PO (21:11)
[2023-10-25] MEDS: FUROSEMIDE INJ 40 MG/4 ML VIAL IV PUSH (21:11)
[2023-10-25] MEDS: HYDROmorphone HCL INJ (*CRX) 1 MG/ML SYR IV PUSH (21:12)
[2023-10-25] MEDS: HEPARIN SOD/D5W 100 UNITS/ML 25,000 UNITS/250 ML BAG 10 UNITS IV CONT (21:12)
[2023-10-25] MEDS: HEPARIN SODIUM 5,000 UNITS/ML VIAL 4000 UNITS IV PUSH (21:12)
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
[2023-10-25 22:28] LABS: Basophils Percent Auto 0.4 % (0.2-1.2); Eosinophils Absolute Auto 0.1 K/mm3 (0-0.3); Eosinophils Percent Auto 1.1 % (0-4.4); Hematocrit 39.7 % (42.0-52.0); Hemoglobin 13.1 g/dL (14.0-18.0); Immature Granulocyte Absolute 0.03 K/mm3 (0.00-0.031); Immature Granulocyte Percent A 0.3 % (0-0.5); Lymphocytes Absolute Auto 1.74 K/mm3 (0.9-3.2); Lymphocytes Percent Auto 16.6 % (18.3-44.2); Mean Corpuscular Hemoglobin 30.4 pg (26-34); Mean Corpuscular Volume 92.1 fl (80-100); Mean Platelet Volume 11.3 fl (7.4-10.4); Monocytes Absolute Auto 1.1 K/mm3 (0.1-0.6); Monocytes Percent Auto 10.5 % (2.6-8.5); Neutrophils Absolute Auto 7.5 K/mm3 (1.3-6.7); Neutrophils Percent Auto 71.1 % (45.5-73.1); Platelet Count Result 258 k/mm3 (150-375); Red Blood Count 4.31 M/mm3 (4.6-6.20); Red Cell Distribution Width 13.7 % (11.5-14.5); White Blood Count 10.5 K/mm3 (4.5-10.0)
[2023-10-25 22:39] LABS: INR 1.2; Prothrombin Time 15.2 Seconds (11.1-14.7)
[2023-10-25 22:41] LABS: Partial Thromboplastin Time 115.8 SECONDS (22.3-36.8)
--- NOTE | 2023-10-25 23:24 | PC.NURSE ---
Pt Has 1 sliv in his rt arm, heparin gtt infusing in his left arm. No distress noted at time of transfer to imu.
--- NOTE | 2023-10-25 23:53 | ADMGEN ---
This patient, Calvin Flores, was admitted to IMU Room 211-01 on 10/25/23 at 2338. Patient/family oriented to hospital policies and general routines including ID bracelet, bed and alarms, visiting hours, pain management, procedures, bathroom and other care routines, personal items, smoking policy, room service/diet, and visiting hours. Information on how to activate the Rapid Response Team has been discussed. Patient/Family are encouraged to report perceived risks to care and to ask questions if they do not understand what they are told or what they should do.
[2023-10-26] VITALS (18 sets, daily range): BP systolic 136–160; BP diastolic 65–87; PULSE 66–92; RESP 12–24; TEMP 36.1–36.8; O2SAT 91–100
[2023-10-26] MEDS: NITROGLYCERIN OINTMENT 1 INCH DOSE TRANSDERM ×5 (00:14→23:32)
--- NOTE | 2023-10-26 00:49 | PC.NURSE ---
called to review home medications. asks what do you want? and sounds exasperated. Explained purpose of call and states she just got home and asks to review medications tomorrow. States she can be called in the AM or she will bring in med list. Med list confirmed based on external med history. Med list to be finished when brings in home med list.
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
[2023-10-26] MEDS: MORPHINE SULFATE (*CRX) 60 MG TABCR PO ×3 (01:39→21:00)
[2023-10-26] MEDS: GABAPENTIN 300 MG CAPSULE 600 MG PO ×4 (01:39→17:04)
[2023-10-26] MEDS: PANTOPRAZOLE 40 MG TABLET PO ×3 (01:40→21:00)
[2023-10-26] MEDS: CYCLOBENZAPRINE HCL 10 MG TABLET PO (01:40)
[2023-10-26 03:37] LABS: Basophils Percent Auto 0.4 % (0.2-1.2); Eosinophils Absolute Auto 0.1 K/mm3 (0-0.3); Eosinophils Percent Auto 1.4 % (0-4.4); Hematocrit 38.1 % (42.0-52.0); Hemoglobin 12.7 g/dL (14.0-18.0); Immature Granulocyte Absolute 0.04 K/mm3 (0.00-0.031); Immature Granulocyte Percent A 0.5 % (0-0.5); Lymphocytes Absolute Auto 2.26 K/mm3 (0.9-3.2); Lymphocytes Percent Auto 27.1 % (18.3-44.2); Mean Corpuscular HGB Conc 33.3 g/dl (32-36); Mean Corpuscular Hemoglobin 30.3 pg (26-34); Mean Corpuscular Volume 90.9 fl (80-100); Mean Platelet Volume 11.2 fl (7.4-10.4); Monocytes Absolute Auto 0.9 K/mm3 (0.1-0.6); Monocytes Percent Auto 11.3 % (2.6-8.5); Neutrophils Percent Auto 59.3 % (45.5-73.1); Platelet Count Result 227 k/mm3 (150-375); Red Blood Count 4.19 M/mm3 (4.6-6.20); Red Cell Distribution Width 13.7 % (11.5-14.5); White Blood Count 8.4 K/mm3 (4.5-10.0)
[2023-10-26 03:50] LABS: Alanine Aminotransferase 204 U/L (6-50); Alkaline Phosphatase 271 U/L (38-126); Anion Gap 8 mmol/L (8-16); Aspartate Amino Transferase 162 U/L (17-59); Bilirubin,Total 0.5 mg/dL (0.2-1.3); Blood Urea Nitrogen 32 mg/dL (9-20); Calcium 8.3 mg/dL (8.4-10.2); Carbon Dioxide 21 mmol/L (22-30); Chloride 101 mmol/L (98-107); Estimated CRCL calculation 70 ml/min; Estimated Glomerular Filt Rate > 60; Glucose 247 mg/dL (65-110); Magnesium 1.9 mg/dL (1.6-2.3); Potassium 3.5 mmol/L (3.4-5.0); Sodium 130 mmol/L (137-145)
[2023-10-26 03:54] LABS: Partial Thromboplastin Time 42.7 SECONDS (22.3-36.8)
[2023-10-26 04:11] LABS: Procalcitonin 0.3 ng/mL
[2023-10-26] MEDS: HEPARIN SODIUM 5,000 UNITS/ML VIAL 4000 UNITS IV PUSH (04:15)
[2023-10-26] MEDS: PHENYTOIN SODIUM 100 MG EXTENDED RELEASE CAP PO (10:08)
[2023-10-26] MEDS: ROSUVASTATIN 10 MG TABLET 40 MG PO (10:08)
[2023-10-26] MEDS: FUROSEMIDE INJ 40 MG/4 ML VIAL IV PUSH (10:09)
[2023-10-26] MEDS: ASPIRIN 81 MG CHEWABLE TABLET PO (10:09)
[2023-10-26] MEDS: SPIRONOLACTONE 25 MG TABLET PO (10:09)
[2023-10-26] MEDS: METOPROLOL TARTRATE 50 MG TAB PO ×2 (10:09→17:05)
[2023-10-26 10:22] LABS: Cholesterol 186 mg/dL (0-200)
[2023-10-26 10:31] LABS: Partial Thromboplastin Time 62.4 SECONDS (22.3-36.8)
[2023-10-26] MEDS: HEPARIN SODIUM 5,000 UNITS/ML VIAL 3000 UNITS IV PUSH (11:07)
--- NOTE | 2023-10-26 11:57 | PM.IMPN ---
Progress Note: A&P Assessment and Plan (1) NSTEMI (non-ST elevated myocardial infarction): Code(s): I21.4 - Non-ST elevation (NSTEMI) myocardial infarction Status: Acute Assessment and Plan: Carry forward from Cardiology Note: Patient has an ACS consistent with a non ST elevation myocardial infarction. Continue heparin drip. Continue nitroglycerin paste 1 in q.6 hours. His blood pressure is also markedly elevated. Stress test last year showed fixed defects but with this significant bump in troponin as well as chest pain syndrome, further ischemic workup is likely needed. He is currently pain free. Continue rosuvastatin, metoprolol tartrate 50 mg p.o. b.i.d., lisinopril, aspirin and clopidogrel. 2D echocardiogram Doppler were ordered and reviewed. Will allow him to eat a light breakfast for possible angiogram tomorrow afternoon depending on symptoms. Will obviously need to clarify previous grafts and review old records through Dr. Mccabe's office notes. -Cardiology to possibly take patient to laborer later in the day tomorrow. Heparin drip continues. (2) CHF (congestive heart failure): Code(s): I50.9 - Heart failure, unspecified Status: Acute Assessment and Plan: Continue lisinopril, metoprolol, spironolactone. If able, add Jardiance or Farxiga. Will continue diuresis with furosemide but will reduce to 40 mg IV daily. KCL 40 mg p.o. x1. His CHF is related to ischemic cardiomyopathy and heart failure with reduced ejection fraction -Echo pending, above is from Cardiology note. No shortness of breath at time of my evaluation. (3) Cardiomyopathy: Code(s): I42.9 - Cardiomyopathy, unspecified Status: Acute Assessment and Plan: Ischemia. Like to eventually transition him off of lisinopril and on to Entresto if feasible and consider Toprol XL rather than short-acting metoprolol (4) Renal insufficiency: Code(s): N28.9 - Disorder of kidney and ureter, unspecified Status: Acute Assessment and Plan: Daily BMPs (5) Hypertension associated with diabetes: Code(s): E11.59 - Type 2 diabetes mellitus with other circulatory complications; I15.2 - Hypertension secondary to endocrine disorders Status: Acute Assessment and Plan: Elevated at present. (6) Hyperlipidemia associated with type 2 diabetes mellitus: Code(s): E11.69 - Type 2 diabetes mellitus with other specified complication; E78.5 - Hyperlipidemia, unspecified Status: Acute Assessment and Plan: Continue high-dose statin Time Spent With Patient Time with patient: 25 - 35 minutes Subjective Date/time seen: 10/26/23 11:57 Interval history: Patient reports he is now chest pain-free. Patient reports no other current symptoms. He denies shortness of breath. He is much better after being allowed to eat today. Cardiology is considering going to the laborer tomorrow but has requested records from prior refrigerated company driver. Review of Systems Review of Systems: All systems reviewed & are unremarkable except as noted in HPI and below Exam Narrative: Awake alert and oriented appears older than stated age Const: General: comfortable and no acute distress Other: A&O x3 HENMT: Face/Nose/Sinus: Normal nares present Mouth: Yes moist mucous membranes Eyes: General: appearance normal, both eyes and all related structures Sclera: sclerae normal Pupils: Equal, round and reactive pupils present Neck: Neck: supple and no JVD Chest: Other: No reproducible chest wall pain to palpation Resp: Effort & Inspection: normal respiratory effort Auscultation: clear to auscultation bilaterally and crackles Cardio: Rate: regular rate Rhythm: regular rhythm Heart sounds: Murmur heart sound present GI: Inspection: non-distended Auscultation: normal bowel sounds Skin: General skin exam: no rashes or lesions noted Neuro: Cranial nerves: Yes Equal, round and r
--- NOTE | 2023-10-26 12:16 | PM.CNCAR ---
Assessment and Plan Assessment and plan (1) NSTEMI (non-ST elevated myocardial infarction): Code(s): I21.4 - Non-ST elevation (NSTEMI) myocardial infarction Status: Acute Assessment and Plan: Patient has an ACS consistent with a non ST elevation myocardial infarction. Continue heparin drip. Continue nitroglycerin paste 1 in q.6 hours. His blood pressure is also markedly elevated. Stress test last year showed fixed defects but with this significant bump in troponin as well as chest pain syndrome, further ischemic workup is likely needed. He is currently pain free. Continue rosuvastatin, metoprolol tartrate 50 mg p.o. b.i.d., lisinopril, aspirin and clopidogrel. 2D echocardiogram Doppler were ordered and reviewed. Will allow him to eat a light breakfast for possible angiogram tomorrow afternoon depending on symptoms. Will obviously need to clarify previous grafts and review old records through Dr. Mccabe's office notes. (2) CHF (congestive heart failure): Code(s): I50.9 - Heart failure, unspecified Status: Acute Assessment and Plan: Continue lisinopril, metoprolol, spironolactone. If able, add Jardiance or Farxiga. Will continue diuresis with furosemide but will reduce to 40 mg IV daily. KCL 40 mg p.o. x1. His CHF is related to ischemic cardiomyopathy and heart failure with reduced ejection fraction (3) Cardiomyopathy: Code(s): I42.9 - Cardiomyopathy, unspecified Status: Acute Assessment and Plan: Ischemia. Like to eventually transition him off of lisinopril and on to Entresto if feasible and consider Toprol XL rather than short-acting metoprolol (4) Renal insufficiency: Code(s): N28.9 - Disorder of kidney and ureter, unspecified Status: Acute Assessment and Plan: Daily BMPs (5) Hypertension associated with diabetes: Code(s): E11.59 - Type 2 diabetes mellitus with other circulatory complications; I15.2 - Hypertension secondary to endocrine disorders Status: Acute Assessment and Plan: Elevated at present. (6) Hyperlipidemia associated with type 2 diabetes mellitus: Code(s): E11.69 - Type 2 diabetes mellitus with other specified complication; E78.5 - Hyperlipidemia, unspecified Status: Acute Assessment and Plan: Continue high-dose statin History of Present Illness History of Present Illness Consult date/time: 10/26/23 12:16 Requesting physician: Krishan Mcneil MD Consult reason: chest pain and Other (Non-STEMI, CHF) Reason For Visit: NSTEMI/CHF Narrative: Reason for consultation: Non-STEMI, CHF Requesting provider: Dr. Mcneil Date of service 10/26/2023 History patient is a 58-year-old male who has a history of coronary disease status post CABG, ischemic cardiomyopathy, hypertension, hyperlipidemia, diabetes, carotid disease who came to the hospital yesterday because of chest pain. Patient formally saw Dr. Mccabe. Came to this hospital last December for chest pain and abnormal stress test and worsened cardiomyopathy. Stress test showed fixed defects and patient was treated medically at that time. Last night he had acute onset of chest pain located in the center of his chest without radiation. It lasted for several hours with associated diaphoresis. He also had significant diarrhea yesterday. His symptoms persisted up until about 1:00 a.m. this morning in which his pain did go away. Troponins have risen and peaked at 3.8. He is now pain-free in his largest complaint at this stage is that he wants to eat. He was started on nitroglycerin paste, heparin drip. He was also diuresed and symptoms did gradually improve. He states that he was not having any recent syncope, presyncope, paroxysmal nocturnal dyspnea, orthopnea, edema palpitations. Review of Systems Review of Systems: All systems reviewed & are unremarkable except as noted in HPI and below Constitutional: Constitutional: Denies body ach
[2023-10-26 12:26] LABS: Glucose Point of Care 238 mg/dl (65-105)
[2023-10-26] MEDS: INSULIN ASPART (*BKC) 100 UNITS/ML SUB-Q ×2 (12:59→17:06)
[2023-10-26] MEDS: POTASSIUM CHLORIDE 20 MEQ ER TABLET 40 MEQ PO (13:00)
[2023-10-26 15:48] LABS: Glucose Point of Care 276 mg/dl (65-105)
[2023-10-26] MEDS: HEPARIN SOD/D5W 100 UNITS/ML 25,000 UNITS/250 ML BAG 15 UNITS IV CONT (17:12)
[2023-10-26 17:18] LABS: Partial Thromboplastin Time 102.2 SECONDS (22.3-36.8)
[2023-10-26 20:30] LABS: Glucose Point of Care 187 mg/dl (65-105)
[2023-10-27] VITALS (20 sets, daily range): BP systolic 113–148; BP diastolic 59–79; PULSE 55–82; RESP 14–20; TEMP 36.2–36.9; O2SAT 92–100; BMI 22.5
--- NOTE | 2023-10-27 | ECHO_ITS ---
Patient Info Name: Calvin Flores Age: 58 years : 1965 Gender: Male Ht: 76 in Wt: 187 lbs BSA: 2.13 m2 HR: 76 bpm BP: 148 / 79 mmHg Heart Rhythm: Sinus Rhythm Technical Quality: Fair Exam Date: 10/27/2023 7:48 AM Exam Location: Echo Lab Patient Status: Inpatient Admit Date: 10/26/2023 Staff Ordering Physician: Oly Wall MD Corporate Physical Security Supervisor: Attending Provider: Oly Wall MD Exam Type: CA echo dop color flow w con Study Info Indications I50.20 - Unspecified systolic (congestive) heart failure Complete two-dimensional, color flow and Doppler transthoracic echocardiogram is performed with contrast to opacify the left ventricle and to improve the deliniation of the left ventricle endocardial borders. Contrast/Agitated Saline Contrast/Ag. Saline: Definity Amount: 1.00 ml Existing IV Access: Yes Summary 1. Left ventricular chamber dimension is mildly enlarged. 2. Left ventricular systolic function is severely reduced, estimated at 30-35%. 3. There is moderately increased left ventricular wall thickness. 4. The left ventricular diastolic function is grade II diastolic dysfunction. 5. The apical inferior wall, and mid inferolateral wall are akinetic. 6. The anterior wall, anterolateral wall, anteroseptal wall, apical septum, apical cap, basal inferior wall, mid inferior wall, mid inferoseptal, and basal inferolateral wall are hypokinetic. 7. Left atrial chamber dimension is mildly enlarged. 8. There is mild aortic valve regurgitation. 9. There is moderate to severe mitral valve regurgitation. 10. The mitral valve annulus is moderately calcified. 11. There is mild tricuspid valve regurgitation. 12. Moderate pulmonary hypertension, estimated pulmonary arterial systolic pressure is 53 mmHg. Left Ventricle Left ventricular chamber dimension is mildly enlarged. Left ventricular systolic function is severely reduced, estimated at 30-35%. There is moderately increased left ventricular wall thickness. The left ventricular diastolic function is grade II diastolic dysfunction. The apical inferior wall, and mid inferolateral wall are akinetic. The anterior wall, anterolateral wall, anteroseptal wall, apical septum, apical cap, basal inferior wall, mid inferior wall, mid inferoseptal, and basal inferolateral wall are hypokinetic. All other nelson appear normal. Right Ventricle Right ventricular chamber dimension is normal. Right ventricular systolic function is normal. Left Atria Left atrial chamber dimension is mildly enlarged. Right Atria Right atrial chamber dimension is normal. Atrial Septum Intact interatrial septum visualized by color flow imaging. Aortic Valve The aortic valve is trileaflet. There is moderate aortic valve sclerosis. There is no aortic valve stenosis. There is mild aortic valve regurgitation. Pulmonic Valve The pulmonic valve is normal. There is no pulmonic valve stenosis. There is trace pulmonic regurgitation. Mitral Valve The mitral valve has thickened leaflets. There is no mitral valve stenosis. There is moderate to severe mitral valve regurgitation. The mitral valve annulus is moderately calcified. Tricuspid Valve The tricuspid valve leaflets are normal. There is no significant tricuspid valve stenosis. There is mild tricuspid valve regurgitation. Moderate pulmonary hypertension, estimated pulmonary arterial systolic pressure is 53 mmHg. Pericardium/Pleural The pericardium appears normal. There is trivial pericardial effusion. Aorta The prox ascending ao
[2023-10-27 00:36] LABS: Cholesterol 191 mg/dL (0-200); HDL Direct 49 mg/dL; Triglycerides 148 mg/dL (<150)
[2023-10-27 00:40] LABS: Partial Thromboplastin Time 96.4 SECONDS (22.3-36.8)
[2023-10-27 00:47] LABS: LDL Cholesterol Direct 110 mg/dL
[2023-10-27] MEDS: NITROGLYCERIN OINTMENT 1 INCH DOSE TRANSDERM ×4 (05:45→23:49)
[2023-10-27 08:07] LABS: Glucose Point of Care 290 mg/dl (65-105)
[2023-10-27] MEDS: INSULIN ASPART (*BKC) 100 UNITS/ML SUB-Q ×2 (08:15→12:46)
[2023-10-27 08:27] LABS: Basophils Absolute Auto 0.1 K/mm3 (0.0-0.1); Basophils Percent Auto 0.7 % (0.2-1.2); Eosinophils Absolute Auto 0.3 K/mm3 (0-0.3); Eosinophils Percent Auto 3.7 % (0-4.4); Hematocrit 40.7 % (42.0-52.0); Hemoglobin 12.9 g/dL (14.0-18.0); Immature Granulocyte Absolute 0.02 K/mm3 (0.00-0.031); Immature Granulocyte Percent A 0.2 % (0-0.5); Lymphocytes Absolute Auto 3.32 K/mm3 (0.9-3.2); Lymphocytes Percent Auto 38.7 % (18.3-44.2); Mean Corpuscular HGB Conc 31.7 g/dl (32-36); Mean Corpuscular Hemoglobin 30.2 pg (26-34); Mean Corpuscular Volume 95.3 fl (80-100); Mean Platelet Volume 11.9 fl (7.4-10.4); Monocytes Percent Auto 11.3 % (2.6-8.5); Neutrophils Absolute Auto 3.9 K/mm3 (1.3-6.7); Neutrophils Percent Auto 45.4 % (45.5-73.1); Platelet Count Result 265 k/mm3 (150-375); Red Blood Count 4.27 M/mm3 (4.6-6.20); White Blood Count 8.6 K/mm3 (4.5-10.0)
[2023-10-27 08:33] LABS: Alanine Aminotransferase 182 U/L (6-50); Alkaline Phosphatase 253 U/L (38-126); Anion Gap 4 mmol/L (8-16); Aspartate Amino Transferase 102 U/L (17-59); Bilirubin,Total 0.4 mg/dL (0.2-1.3); Blood Urea Nitrogen 30 mg/dL (9-20); Calcium 8.3 mg/dL (8.4-10.2); Carbon Dioxide 29 mmol/L (22-30); Chloride 97 mmol/L (98-107); Estimated CRCL calculation 60 ml/min; Estimated Glomerular Filt Rate 52; Glucose 305 mg/dL (65-110); Potassium 4.7 mmol/L (3.4-5.0); Sodium 130 mmol/L (137-145)
[2023-10-27] MEDS: PERFLUTREN LIPID MICROSPHERES 1.5 ML VIAL DILUTED TO 10 ML TOTAL VOLUME IV PUSH (09:50)
[2023-10-27] MEDS: MORPHINE SULFATE (*CRX) 60 MG TABCR PO ×2 (10:07→20:46)
[2023-10-27] MEDS: PHENYTOIN SODIUM 100 MG EXTENDED RELEASE CAP PO (10:08)
[2023-10-27] MEDS: ASPIRIN 81 MG CHEWABLE TABLET PO (10:08)
[2023-10-27] MEDS: ROSUVASTATIN 10 MG TABLET 40 MG PO (10:08)
[2023-10-27] MEDS: PANTOPRAZOLE 40 MG TABLET PO ×2 (10:09→20:46)
[2023-10-27] MEDS: GABAPENTIN 300 MG CAPSULE 600 MG PO ×2 (10:09→12:48)
[2023-10-27 10:10] LABS: Glucose Point of Care 262 mg/dl (65-105)
[2023-10-27] MEDS: METOPROLOL TARTRATE 50 MG TAB PO (10:10)
[2023-10-27] MEDS: SPIRONOLACTONE 25 MG TABLET PO (10:11)
[2023-10-27] MEDS: FUROSEMIDE INJ 40 MG/4 ML VIAL IV PUSH (10:11)
[2023-10-27] MEDS: HEPARIN SOD/D5W 100 UNITS/ML 25,000 UNITS/250 ML BAG 15 UNITS IV CONT (10:50)
[2023-10-27] MEDS: SODIUM CHLORIDE 0.9% IV 1,000 ML 50 ML IV CONT (10:53)
[2023-10-27 11:59] LABS: Glucose Point of Care 261 mg/dl (65-105)
--- NOTE | 2023-10-27 14:18 | WPDMODSED ---
Moderate Sedation Note-Pt Data Patient Data Diagnosis: coronary artery disease with previous bypass grafting ischemic cardiomyopathy chest pain evidence of ACS/non STEMI diabetes Present Complaint: no complaint today Procedure to be performed/Plan: follow-up left heart catheterization coronary and vein graft and COLLEEN graft angiography Allergies Allergy/AdvReac Type Severity Reaction Status Date / Time No Known Allergies Allergy Verified 10/25/23 18:40 Home Medications Medication Instructions Recorded Confirmed Type aspirin 81 mg tablet,delayed 81 mg PO DAILY 09/20/19 10/26/23 History release (Adult Low Dose Aspirin) glucagon HCl 1 mg solution for 1 mg subcut Q20M PRN hypoglycemia 05/19/22 10/27/23 Rx injection (Glucagon (HCl) #1 ea Emergency Kit) fluoxetine 40 mg capsule 80 mg PO DAILY 10/27/22 10/26/23 History rosuvastatin 40 mg tablet 40 mg PO DAILY #30 tabs 11/04/22 10/26/23 Rx spironolactone 25 mg tablet 25 mg PO QAM #30 tabs 11/04/22 10/26/23 Rx clopidogrel 75 mg tablet 75 mg PO DAILY 01/08/23 10/26/23 History gabapentin 300 mg capsule 600 mg PO TID 01/08/23 10/26/23 History phenytoin sodium extended 100 mg 100 mg PO DAILY 01/08/23 10/26/23 History capsule lisinopril 20 mg tablet 20 mg PO QAM #30 tabs 01/11/23 10/26/23 Rx insulin human U-100 NPH-regulr 10 unit subcut HS 05/22/23 10/27/23 History 70-30 mix 100 unit/mL subcutaneous susp (Humulin 70/30 U-100 Insulin) insulin human U-100 NPH-regulr 20 unit subcut DAILY 05/22/23 10/27/23 History 70-30 mix 100 unit/mL subcutaneous susp (Humulin 70/30 U-100 Insulin) metoprolol tartrate 50 mg tablet 50 mg PO BIDWM 05/22/23 10/26/23 History pantoprazole 40 mg tablet,delayed 40 mg PO BID 05/22/23 10/26/23 History release cyclobenzaprine 10 mg tablet 10 mg PO HS PRN muscle spasm 10/26/23 10/26/23 History morphine 30 mg tablet,extended 60 mg PO Q12HR 10/26/23 10/26/23 History release ondansetron 4 mg disintegrating 4 mg translingual Q6H PRN Nausea 10/26/23 10/26/23 History tablet And Vomiting Current Medications: Active Medications Aspirin (Aspirin 81 Mg Chewable Tablet) 81 mg PO DAILY@0800 [facility] Last Admin: 10/27/23 10:08 Dose: 81 mg Cyclobenzaprine HCl (Cyclobenzaprine Hcl 10 Mg Tablet) 10 mg PO HS PRN PRN Reason: muscle spasm Last Admin: 10/26/23 01:40 Dose: 10 mg Dextrose (Dextrose 50% 25 Gm/50 Ml Syringe) 12.5 gm IV PUSH PRN PRN; Protocol PRN Reason: Hypoglycemia Furosemide (Furosemide Inj 40 Mg/4 Ml Vial) 40 mg IV PUSH DAILY [facility] Last Admin: 10/27/23 10:11 Dose: 40 mg Gabapentin (Gabapentin 300 Mg Capsule) 600 mg PO TID [facility] Last Admin: 10/27/23 12:48 Dose: 600 mg Glucagon (Glucagon For Inj 1 Mg Vial) 1 mg IM PRN PRN; Protocol PRN Reason: Hypoglycemia Glucose (Glucose Oral Gel 15 Gm Of Glucse In 37.5 Gm Tube) 15 gm PO PRN PRN; Protocol PRN Reason: Hypoglycemia Dextrose (Dextrose 5% 1,000 Ml) 1,000 mls @ 100 mls/hr IVPB PRN PRN; Protocol PRN Reason: Hypoglycemia Sodium Chloride (Normal Saline Iv) 1,000 mls @ 50 mls/hr IV CONT .Q20H [facility] Last Admin: 10/27/23 10:53 Dose: 50 mls/hr Insulin Aspart (Insulin Aspart (*Bkc) 100 Units/Ml) 4 - 8 units SUB-Q TIDWM [facility]; Protocol Last Admin: 10/27/23 12:46 Dose: 5 units Insulin Aspart (Insulin Aspart (*Bkc) 100 Units/Ml) 2 - 4 units SUB-Q HS [facility]; Protocol Last Admin: 10/26/23 20:31 Dose: Not Given Metoprolol Tartrate (Metoprolol Tartrate 50 Mg Tab) 50 mg PO BIDWM [facility] Last Admin: 10/27/23 10:10 Dose: 50 mg Morphine Sulfate (Morphine Sulfate (*Crx) 60 Mg Tabcr) 60 mg PO Q12HR [facility] Last Admin: 10/27/23 10:07 Dose: 60 mg Nitroglycerin (Nitroglycerin Ointment 1 Inch Dose) 1 inch TRANSDERM Q6HR [facility] Last Admin: 10/27/23 12:50 Dose: 1 inch Nitroglycerin (Nitroglycerin Sl 0.4 Mg Tablet) 0.4 mg SUBLINGUAL Q5MIN PRN PRN Reason: Chest Pain Pantoprazole Sodium (Pantoprazole 40 Mg Tablet) 40 mg PO Q12HR [facility] Last Admin: 10/27/23 10:09 Dose:
--- NOTE | 2023-10-27 14:28 | PC.NURSE ---
1415- to crime lab analyst for procedure
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
--- NOTE | 2023-10-27 15:24 | PM.IMPN ---
Progress Note: A&P Assessment and Plan (1) NSTEMI (non-ST elevated myocardial infarction): Code(s): I21.4 - Non-ST elevation (NSTEMI) myocardial infarction Status: Acute Assessment and Plan: Carry forward from Cardiology Note: Patient has an ACS consistent with a non ST elevation myocardial infarction. Continue heparin drip. Continue nitroglycerin paste 1 in q.6 hours. His blood pressure is also markedly elevated. Stress test last year showed fixed defects but with this significant bump in troponin as well as chest pain syndrome, further ischemic workup is likely needed. He is currently pain free. Continue rosuvastatin, metoprolol tartrate 50 mg p.o. b.i.d., lisinopril, aspirin and clopidogrel. 2D echocardiogram Doppler were ordered and reviewed. Will allow him to eat a light breakfast for possible angiogram tomorrow afternoon depending on symptoms. Will obviously need to clarify previous grafts and review old records through Dr. Mccabe's office notes. -Cardiology to possibly take patient to metallurgical lab technician later in the day tomorrow. Heparin drip continues. 3/: Cardiac catheterization unable to be accomplished, patient will be medically optimized for the care per Cardiology (2) CHF (congestive heart failure): Code(s): I50.9 - Heart failure, unspecified Status: Acute Assessment and Plan: Continue lisinopril, metoprolol, spironolactone. If able, add Jardiance or Farxiga. Will continue diuresis with furosemide but will reduce to 40 mg IV daily. KCL 40 mg p.o. x1. His CHF is related to ischemic cardiomyopathy and heart failure with reduced ejection fraction -Echo pending, above is from Cardiology note. No shortness of breath at time of my evaluation. 3: Echocardiogram shows EF of 30-35% with pulmonary artery hypertension. Cardiology plans to treat patient medical optimization. (3) Cardiomyopathy: Code(s): I42.9 - Cardiomyopathy, unspecified Status: Acute Assessment and Plan: Ischemia. Like to eventually transition him off of lisinopril and on to Entresto if feasible and consider Toprol XL rather than short-acting metoprolol (4) Renal insufficiency: Code(s): N28.9 - Disorder of kidney and ureter, unspecified Status: Acute Assessment and Plan: Daily BMPs (5) Hypertension associated with diabetes: Code(s): E11.59 - Type 2 diabetes mellitus with other circulatory complications; I15.2 - Hypertension secondary to endocrine disorders Status: Acute Assessment and Plan: Elevated at present. (6) Hyperlipidemia associated with type 2 diabetes mellitus: Code(s): E11.69 - Type 2 diabetes mellitus with other specified complication; E78.5 - Hyperlipidemia, unspecified Status: Acute Assessment and Plan: Continue high-dose statin (7) Hyponatremia: Code(s): E87.1 - Hypo-osmolality and hyponatremia Status: Acute Assessment and Plan: 10/26: Sodium level 130 yesterday and this morning. Will monitor with daily BMPs. IV fluids were used while patient was NPO but will be discontinued. Time Spent With Patient Time with patient: 25 - 35 minutes Subjective Date/time seen: 10/27/23 15:24 Interval history: Patient reports he is chest pain-free. He was made NPO for cardiac catheterization. Patient reports minimal shortness of breath at rest. While NPO patient was given IV fluids at a conservative rate of 50 mL/hr. Echocardiogram shows EF of 30-35% as well as pulmonary artery hypertension. Patient was taken for cardiac catheterization however he did not have successful access and PCI attempts were ceased. Cardiology plans to medically optimize care. Labs this morning show continued hyponatremia at 130. Mild transaminitis is virtually unchanged. Review of Systems Review of Systems: All systems reviewed & are unremarkable except as noted in HPI and below Exam Narrative: Awake alert and oriented appears old
[2023-10-27 17:57] LABS: Glucose Point of Care 101 mg/dl (65-105)
--- NOTE | 2023-10-27 20:37 | PC.NURSE ---
Addendum entered by Paris Joseph RN 10/28/23 22:34: procedure was not done Original Note: 1740- returned to room - unable to do access artery- procedure not aborted;. bandaid x2 to right groin site and bandaid to left radial site - intact- pt very drowsy -O2 on 2l/nc- pt arouses to light touch and repositioning in bed but drifts back to sleep; Blood sugar 101; and BP stable monitor SR 60's- at bedside- will continue to monitor
[2023-10-27 21:02] LABS: Glucose Point of Care 140 mg/dl (65-105)
--- NOTE | 2023-10-27 21:55 | PC.NURSE ---
Update given to via telephone.
[2023-10-27 23:34] LABS: Glucose Point of Care 161 mg/dl (65-105)
--- NOTE | 2023-10-27 23:40 | PC.NURSE ---
CCT alerted RN to patient having difficulty moving his neck. Upon assessment the patient reported his head felt heavy. CCT obtained a blood sugar which was WDL. Upon performing a neuro assessment the patient was having difficulty touching his R ear with his left hand. NIHSS was otherwise unremarkable. RN called Dr. Huertas whom is coming to bedside. Kiya to bedside for assessment. RN instructed to continue care with no interventions at this time.
[2023-10-28] VITALS (17 sets, daily range): BP systolic 108–157; BP diastolic 54–77; PULSE 58–96; RESP 18–22; TEMP 36.1–36.9; O2SAT 91–100
--- NOTE | 2023-10-28 | ECHO_ITS ---
Patient Info Name: Calvin Flores Age: 58 years : 1965 Gender: Male Ht: 76 in Wt: 184 lbs BSA: 2.11 m2 HR: 76 bpm BP: 134 / 58 mmHg Heart Rhythm: Sinus Rhythm Technical Quality: Good Exam Date: 10/28/2023 2:54 PM Exam Location: Echo Lab Patient Status: Inpatient Admit Date: 10/26/2023 Staff Ordering Physician: Alex Killian APRN Plasterer Tender: KELLY Attending Provider: Oly Wall MD Referring Physician: Constantin LOW; Exam Type: CA echo limited w bubble study Study Info Indications - stroke Limited two-dimensional transthoracic echocardiogram is performed with agitated saline. Summary 1. Limited study for bubble study. 2. Poor quality bubble study. This study is inconclusive. Atrial Septum Poor quality bubble study. This study is inconclusive. Report Signatures
[2023-10-28 05:25] LABS: Basophils Percent Auto 0.5 % (0.2-1.2); Eosinophils Absolute Auto 0.3 K/mm3 (0-0.3); Eosinophils Percent Auto 3.2 % (0-4.4); Hematocrit 41.3 % (42.0-52.0); Hemoglobin 12.7 g/dL (14.0-18.0); Immature Granulocyte Absolute 0.02 K/mm3 (0.00-0.031); Immature Granulocyte Percent A 0.3 % (0-0.5); Lymphocytes Absolute Auto 2.26 K/mm3 (0.9-3.2); Lymphocytes Percent Auto 29.3 % (18.3-44.2); Mean Corpuscular HGB Conc 30.8 g/dl (32-36); Mean Corpuscular Hemoglobin 29.5 pg (26-34); Mean Corpuscular Volume 95.8 fl (80-100); Mean Platelet Volume 11.6 fl (7.4-10.4); Monocytes Absolute Auto 0.7 K/mm3 (0.1-0.6); Monocytes Percent Auto 9.2 % (2.6-8.5); Neutrophils Absolute Auto 4.4 K/mm3 (1.3-6.7); Neutrophils Percent Auto 57.5 % (45.5-73.1); Platelet Count Result 242 k/mm3 (150-375); Red Blood Count 4.31 M/mm3 (4.6-6.20); Red Cell Distribution Width 13.8 % (11.5-14.5); White Blood Count 7.7 K/mm3 (4.5-10.0)
[2023-10-28] MEDS: NITROGLYCERIN OINTMENT 1 INCH DOSE TRANSDERM ×3 (05:28→18:53)
[2023-10-28 05:40] LABS: Partial Thromboplastin Time 28.1 SECONDS (22.3-36.8)
[2023-10-28 05:55] LABS: Alanine Aminotransferase 150 U/L (6-50); Albumin Level 3.2 g/dL (3.5-5.1); Alkaline Phosphatase 224 U/L (38-126); Anion Gap 7 mmol/L (8-16); Aspartate Amino Transferase 70 U/L (17-59); Bilirubin,Total 0.4 mg/dL (0.2-1.3); Blood Urea Nitrogen 28 mg/dL (9-20); Calcium 8.6 mg/dL (8.4-10.2); Carbon Dioxide 28 mmol/L (22-30); Chloride 99 mmol/L (98-107); Estimated CRCL calculation 60 ml/min; Estimated Glomerular Filt Rate 52; Glucose 223 mg/dL (65-110); Magnesium 1.8 mg/dL (1.6-2.3); Potassium 4.3 mmol/L (3.4-5.0); Sodium 134 mmol/L (137-145)
[2023-10-28 08:05] LABS: Glucose Point of Care 237 mg/dl (65-105)
[2023-10-28] MEDS: INSULIN ASPART (*BKC) 100 UNITS/ML SUB-Q ×2 (08:50→18:53)
[2023-10-28] MEDS: ROSUVASTATIN 10 MG TABLET 40 MG PO (08:55)
[2023-10-28] MEDS: GABAPENTIN 300 MG CAPSULE 600 MG PO ×2 (08:57→12:43)
[2023-10-28] MEDS: METOPROLOL SUCCINATE EXT REL 100 MG TABCR PO (08:58)
[2023-10-28] MEDS: ASPIRIN 81 MG CHEWABLE TABLET PO (08:58)
[2023-10-28] MEDS: PHENYTOIN SODIUM 100 MG EXTENDED RELEASE CAP PO (08:59)
[2023-10-28] MEDS: PANTOPRAZOLE 40 MG TABLET PO (08:59)
[2023-10-28] MEDS: SPIRONOLACTONE 25 MG TABLET PO (09:00)
[2023-10-28] MEDS: SACUBITRIL/VALSARTAN 24-26 MG TABLET 1 TAB PO (09:01)
--- NOTE | 2023-10-28 10:38 | PM.PNCARD ---
Progress Note: A&P Assessment and Plan (1) Acute CVA (cerebrovascular accident): Code(s): I63.9 - Cerebral infarction, unspecified Status: Acute Assessment and Plan: Concern for acute stroke in this patient. Brain MRI is pending. (2) NSTEMI (non-ST elevated myocardial infarction): Code(s): I21.4 - Non-ST elevation (NSTEMI) myocardial infarction Status: Acute Assessment and Plan: 10/26, cardiac cath was attempted -- Unsuccessful but uncomplicated attempt at performing coronary angiography, vein graft angiography and internal mammary graft angiography for lack of arterial access in this 58-year-old man.? Medical therapy will be continued for ischemic left ventricular dysfunction.? Angiography is not able to be performed as described above. Continue ASA 81mg once daily. Recommend Plavix 75mg once daily if he is able to take oral pills at this time given his mental status. Continue statin. (3) HFrEF (heart failure with reduced ejection fraction): Code(s): I50.20 - Unspecified systolic (congestive) heart failure Status: Acute Assessment and Plan: Continue IV Lasix for now. Continue Spironolactone, Toprol. Off of Lisinopril and on Entresto now, continue. Eventually add SGLT2-inhibitor. Subjective Date/time seen: 10/28/23 10:38 Interval history: Reason for visit: NSTEMI, CHF HPI: Patient is a 58-year-old male who has a history of coronary disease status post CABG, ischemic cardiomyopathy, hypertension, hyperlipidemia, diabetes, carotid disease who came to the hospital yesterday because of chest pain.? Patient formally saw Dr. Mccabe.? Came to this hospital last December for chest pain and abnormal stress test and worsened cardiomyopathy.? Stress test showed fixed defects and patient was treated medically at that time.? Last night he had acute onset of chest pain located in the center of his chest without radiation.? It lasted for several hours with associated diaphoresis.? He also had significant diarrhea yesterday.? His symptoms persisted up until about 1:00 a.m. this morning in which his pain did go away.? Troponins have risen and peaked at 3.8.? He is now pain-free in his largest complaint at this stage is that he wants to eat.? He was started on nitroglycerin paste, heparin drip.? He was also diuresed and symptoms did gradually improve.? He states that he was not having any recent syncope, presyncope, paroxysmal nocturnal dyspnea, orthopnea, edema palpitations. Date of service 10/27: Yesterday, cardiac cath was attempted -- Unsuccessful but uncomplicated attempt at performing coronary angiography, vein graft angiography and internal mammary graft angiography for lack of arterial access in this 58-year-old man.? Medical therapy will be continued for ischemic left ventricular dysfunction.? Angiography is not able to be performed as described above. Overnight, patient noted to have left sided weakness with his left arm and altered mental status. CT Head shows no acute findings, however, multiple unchanged old infarcts in the bilateral cerebral hemispheres and additional small old infarct in the right parietal occipital region which is new since the prior study. Unable to obtain proper history or ROS from the patient today given his mental status. Brain MRI is pending. Review of Systems Review of Systems: ROS unobtainable: Yes unobtainable due to mental status Exam Const: General: no acute distress HENMT: Mouth: Yes dry mucous membranes Resp: Effort & Inspection: normal respiratory effort Cardio: Rate: regular rate Rhythm: regular rhythm Skin: General skin exam: normal color Neuro: Other: Altered mental status -- not answering questions. Has significant weakness in LUE Objective Data Vital Signs Vital Signs: Vital Signs - 24 hr 10/27/23 11:29 10/27/23 12:00 10/27/23 12:00 Temperature 36.9 C Pulse Rate 72 72 72 Respiratory Rate 18 18 Blood Pressure 144/61 H
[2023-10-28 12:02] LABS: Glucose Point of Care > 500 mg/dl (65-105)
[2023-10-28 12:02] LABS: Glucose Point of Care 291 mg/dl (65-105)
[2023-10-28 12:02] LABS: Glucose Point of Care 376 mg/dl (65-105)
--- NOTE | 2023-10-28 12:15 | PM.IMPN ---
Progress Note: A&P Assessment and Plan (1) Acute CVA (cerebrovascular accident): Code(s): I63.9 - Cerebral infarction, unspecified Status: Acute Assessment and Plan: 10/27: Concern for acute stroke in this patient. CT Brain no acute bleed, several old strokes noted. Brain MRI, Gage/Neck MRA is pending. MBS ordered, patient NPO except sips/meds at this time. Bedside swallow completed by this provider at 1200 with 3 ounces of water without straw, no choking or drainage from mouth but there was slight delayed swallow. Aspirin 324 ordered, Plavix 75 ordered, NO TPA/TNK due to onset symptoms yesterday that were initially thought to be sedation caused by medication with attempted cardiac catheterization. Ordered echo bubble study and Neurology consult. (2) NSTEMI (non-ST elevated myocardial infarction): Code(s): I21.4 - Non-ST elevation (NSTEMI) myocardial infarction Status: Acute Assessment and Plan: Carry forward from Cardiology Note: Patient has an ACS consistent with a non ST elevation myocardial infarction. Continue heparin drip. Continue nitroglycerin paste 1 in q.6 hours. His blood pressure is also markedly elevated. Stress test last year showed fixed defects but with this significant bump in troponin as well as chest pain syndrome, further ischemic workup is likely needed. He is currently pain free. Continue rosuvastatin, metoprolol tartrate 50 mg p.o. b.i.d., lisinopril, aspirin and clopidogrel. 2D echocardiogram Doppler were ordered and reviewed. Will allow him to eat a light breakfast for possible angiogram tomorrow afternoon depending on symptoms. Will obviously need to clarify previous grafts and review old records through Dr. Mccabe's office notes. -Cardiology to possibly take patient to catheterization laboratory technician later in the day tomorrow. Heparin drip continues. 10/26: Cardiac catheterization unable to be accomplished, patient will be medically optimized for the care per Cardiology 10/27: No chest pain (3) CHF (congestive heart failure): Code(s): I50.9 - Heart failure, unspecified Status: Acute Assessment and Plan: Continue lisinopril, metoprolol, spironolactone. If able, add Jardiance or Farxiga. Will continue diuresis with furosemide but will reduce to 40 mg IV daily. KCL 40 mg p.o. x1. His CHF is related to ischemic cardiomyopathy and heart failure with reduced ejection fraction -Echo pending, above is from Cardiology note. No shortness of breath at time of my evaluation. 10/26: Echocardiogram shows EF of 30-35% with pulmonary artery hypertension. Cardiology plans to treat patient medical optimization. (4) Cardiomyopathy: Code(s): I42.9 - Cardiomyopathy, unspecified Status: Acute Assessment and Plan: Ischemia. Like to eventually transition him off of lisinopril and on to Entresto if feasible and consider Toprol XL rather than short-acting metoprolol (5) Renal insufficiency: Code(s): N28.9 - Disorder of kidney and ureter, unspecified Status: Acute Assessment and Plan: Daily BMPs (6) Hypertension associated with diabetes: Code(s): E11.59 - Type 2 diabetes mellitus with other circulatory complications; I15.2 - Hypertension secondary to endocrine disorders Status: Acute Assessment and Plan: Elevated at present. (7) Hyperlipidemia associated with type 2 diabetes mellitus: Code(s): E11.69 - Type 2 diabetes mellitus with other specified complication; E78.5 - Hyperlipidemia, unspecified Status: Acute Assessment and Plan: Continue high-dose statin (8) Hyponatremia: Code(s): E87.1 - Hypo-osmolality and hyponatremia Status: Acute Assessment and Plan: 10/26: Sodium level 130 yesterday and this morning. Will monitor with daily BMPs. IV fluids were used while patient was NPO but will be discontinued. 10/27: Sodium 134 (9) HFrEF (heart failure with reduced ejection fraction): Code(s):
[2023-10-28] MEDS: ASPIRIN 81 MG CHEWABLE TABLET 324 MG PO (12:42)
[2023-10-28] MEDS: CLOPIDOGREL BISULFATE 75 MG TABLET PO (12:43)
[2023-10-28] MEDS: FUROSEMIDE INJ 40 MG/4 ML VIAL IV PUSH (12:49)
[2023-10-28 12:51] LABS: Cholesterol 166 mg/dL (0-200); HDL Direct 49 mg/dL; Triglycerides 151 mg/dL (<150)
[2023-10-28 13:01] LABS: LDL Cholesterol Direct 88 mg/dL
--- NOTE | 2023-10-28 13:09 | PCSTNOTE ---
Attempted to schedule MBS but pt was in MRI; Xray will contact ST when MRI is over to determine if it can be scheduled yet today. Otherwise it be scheduled connie 10/28.
[2023-10-28] MEDS: SODIUM CHLORIDE 0.9% IV 1,000 ML 50 ML IV CONT (14:12)
--- NOTE | 2023-10-28 14:47 | PCSTNOTE ---
Please refer to the Modified Barium Swallow Evaluation in the EMR. The patient was seated for a lateral view and presented with 5cc of thin liquid barium via a spoon & pudding consistency barium via a spoon. Oral prep/transit stage findings: reduced labial tension as evidenced by oral leakage with thin liquids, reduced lingual control as evidenced by premature spill to the level of the pyriform sinuses, & reduced lingual shaping as evidenced by oral residue with the pudding. During the pharyngeal stage, a delayed swallow reflex was exhibited (2 seconds)as contents pooled in the pyriform sinuses; during that time the thin liquid spilled into the open airway (reduced laryngeal adduction) which was copious. A delayed cough was noted but was ineffective in clearing any aspirate. The chin tuck position was used in subsequent trials but laryngeal penetration, indicative of reduced laryngeal elevation, occurred during those trials; trace aspiration occurred after the swallow which was silent. With the pudding trial, reduced laryngeal elevation (evidenced by laryngeal penetration) occurred during the swallow. Reduced tongue base retraction was also evident as mild vallecular residue was exhibited. Penetrated contents were eventually aspirated after the swallow which was a trace amount. Residual was cleared with pt's independent dry swallows but more penetration occurred. Impressions: severe dysphagia Recommendations: NPO, repeat MBS in 3-4 days & begin speech/swallow therapy.
--- NOTE | 2023-10-28 15:15 | IVDEFINITY ---
Prior to administration of IV Definity the patient was educated on the risks and benefits of the imaging enhancing agent including potential adverse side effects. The patient verbalized understanding. Allergies were verified. No exclusion criteria were identified and at least one of the following inclusion criteria were met: 1) physician request, 2) patient technically difficult to image (per the [place] [employer] guidelines of two or more segments not discernable within the apical view), or 3) questionable left ventricular function. ?
--- NOTE | 2023-10-28 15:21 | WPDNEURCNPN ---
Assessment and Plan Assessment and plan (1) Hyperlipidemia associated with type 2 diabetes mellitus: Code(s): E11.69 - Type 2 diabetes mellitus with other specified complication; E78.5 - Hyperlipidemia, unspecified Status: Acute (2) Hypertension associated with diabetes: Code(s): E11.59 - Type 2 diabetes mellitus with other circulatory complications; I15.2 - Hypertension secondary to endocrine disorders Status: Acute (3) Heart failure: Code(s): I50.9 - Heart failure, unspecified Status: Acute (4) Cerebrovascular accident: Code(s): I63.9 - Cerebral infarction, unspecified Status: Acute Plan considering the complete occlusion of the right internal carotid artery the distal bulb with 3 supplied the site of an he has the right ophthalmic artery and patent right posterior communicating artery he can continue the aspirin and Plavix it will be unlikely that he can go through the stenting when we can always consider consultation with them in the meantime all the medication will be as such Consult date: 10/28/23 HPI: Calvin Flores is a 58 year old male Admitted to the hospital through the emergency room for the complaints of shortness of breath along with chest discomfort in addition to the history of previous cardiac disease and a bypass in 2004 along with the history of amputation of the left lower extremity patient has reportedly being seen the physician for chronic pain quite frequently. His medications at the time of admission to the ER included aspirin 81mg daily cyclobenzaprine 10mg 3 times a day p.r.n. fluoxetine 40mg each 2 of them daily clopidogrel 75mg daily gabapentin 300mg capsule 3 times a day phenytoin 100mg daily and insulin accordingly in addition to metoprolol 50mg twice a day and pantoprazole 40mg daily. He is not allergic to any medication but he does have ongoing history of 1. Anxiety 2. Arthritis with back pain 3. Cardiomyopathy 4. Chronic hepatitis C 5. Congestive heart failure with underlying coronary artery disease 6hyperlipidemia with hypertension8 insulin-dependent diabetes mellitus 9 peripheral neuropathy secondary to underlying diabetes mellitus 10. Right-sided carotid artery disease as well. Since admission here patient has had the non STEMI with no ST elevation he received the continuous heparin drip along with the nitroglycerin though he was hypertensive he was not complaining of any specific chest pain and was treated accordingly for the congestive heart failure with cardiomyopathy. Echocardiogram documented severely reduced left ventricular systolic function a [place] apical inferior wall and mid inferolateral wall left atrial chamber mildly enlarged mild aortic valve regurgitation moderate to severe mitral valve regurgitation with calcified annulus and mild tricuspid valve regurgitation cardiac catheterization was attempted but could not be performed as explained in the cardiac catheterization. CTA documented complete occlusion of the right internal carotid artery beginning at the distal bulb with recent supply at the carotid siphon via a right ophthalmic artery with likely additional receptacle eye via patent right posterior communicating artery but 0% stenosis of left carotid bulb neuro consultation has been obtained because patient has developed left hemiparesis involving the left upper extremity but left lower extremity is amputated CT scan revealed no bleed but multiple old infarcts in bilateral cerebral hemisphere and small infarct in right parietal occipital region as well and CTA documented complete occlusion right internal carotid artery beginning at the distal bulb with Matteo a plica beginning at the carotid siphon we are the right ophthalmic artery and likely a additionally supple eye with patent right posterior communicating artery. [facility] Past Medical History Medical History Abnormal CT scan, gastrointestinal tract
[2023-10-28 16:24] LABS: Glucose Point of Care 242 mg/dl (65-105)
[2023-10-28 18:56] LABS: Glucose Point of Care 275 mg/dl (65-105)
[2023-10-28 20:14] LABS: Glucose Point of Care 257 mg/dl (65-105)
--- NOTE | 2023-10-28 21:33 | PC.NURSE ---
NG advanced per radiology recommendation.
[2023-10-28] MEDS: PANTOPRAZOLE SODIUM IV 40 MG VIAL IV PUSH (21:35)
[2023-10-28] MEDS: SACUBITRIL/VALSARTAN 24-26 MG TABLET 1 TAB XX (21:35)
--- NOTE | 2023-10-28 22:36 | PC.NURSE ---
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 . informed pt was evaluated by night auditor MD changes in left arm strength and there is no changes from [place] evaluation, Critical day care provider and charge nurse at pt bedside. CT brain ordered
--- NOTE | 2023-10-28 23:10 | PC.NURSE ---
1257- to MRI scan accompanied by Aby REA and transporter-
[2023-10-29] VITALS (17 sets, daily range): BP systolic 119–151; BP diastolic 50–62; PULSE 58–83; RESP 18–22; TEMP 36.2–36.6; O2SAT 94–98
--- NOTE | 2023-10-29 | ECHO_ITS ---
Patient Info Name: Calvin Flores Age: 58 years : 1965 Gender: Male Ht: 72 in Wt: 184 lbs BSA: 2.07 m2 HR: 75 bpm BP: 134 / 58 mmHg Heart Rhythm: Sinus Rhythm Technical Quality: Good Exam Date: 10/29/2023 12:52 PM Exam Location: Echo Lab Patient Status: Inpatient Admit Date: 10/26/2023 Staff Ordering Physician: Oly Wall MD Salesperson Sheet Music: KELLY Attending Provider: Oly Wall MD Exam Type: CA echo limited w bubble study Study Info Indications - stroke Limited two-dimensional transthoracic echocardiogram is performed with agitated saline. Summary 1. Intact interatrial septum visualized by agitated saline imaging. Atrial Septum Intact interatrial septum visualized by agitated saline imaging. Report Signatures
[2023-10-29] MEDS: NITROGLYCERIN OINTMENT 1 INCH DOSE TRANSDERM ×4 (00:01→17:55)
[2023-10-29] MEDS: INSULIN ASPART (*BKC) 100 UNITS/ML SUB-Q ×3 (00:01→19:03)
[2023-10-29 00:19] LABS: Glucose Point of Care 316 mg/dl (65-105)
[2023-10-29 04:56] LABS: Basophils Percent Auto 0.4 % (0.2-1.2); Eosinophils Absolute Auto 0.3 K/mm3 (0-0.3); Eosinophils Percent Auto 3.8 % (0-4.4); Hematocrit 44.5 % (42.0-52.0); Hemoglobin 13.9 g/dL (14.0-18.0); Immature Granulocyte Absolute 0.02 K/mm3 (0.00-0.031); Immature Granulocyte Percent A 0.2 % (0-0.5); Lymphocytes Absolute Auto 1.59 K/mm3 (0.9-3.2); Lymphocytes Percent Auto 19.1 % (18.3-44.2); Mean Corpuscular HGB Conc 31.2 g/dl (32-36); Mean Corpuscular Hemoglobin 30.4 pg (26-34); Mean Corpuscular Volume 97.4 fl (80-100); Monocytes Absolute Auto 0.9 K/mm3 (0.1-0.6); Monocytes Percent Auto 10.6 % (2.6-8.5); Neutrophils Absolute Auto 5.5 K/mm3 (1.3-6.7); Neutrophils Percent Auto 65.9 % (45.5-73.1); Platelet Count Result 217 k/mm3 (150-375); Red Blood Count 4.57 M/mm3 (4.6-6.20); Red Cell Distribution Width 13.9 % (11.5-14.5); White Blood Count 8.3 K/mm3 (4.5-10.0)
[2023-10-29 05:10] LABS: Alanine Aminotransferase 96 U/L (6-50); Albumin Level 3.1 g/dL (3.5-5.1); Alkaline Phosphatase 223 U/L (38-126); Anion Gap 6 mmol/L (8-16); Aspartate Amino Transferase 41 U/L (17-59); Bilirubin,Total 0.5 mg/dL (0.2-1.3); Blood Urea Nitrogen 22 mg/dL (9-20); Calcium 8.5 mg/dL (8.4-10.2); Carbon Dioxide 28 mmol/L (22-30); Chloride 102 mmol/L (98-107); Estimated CRCL calculation 64 ml/min; Estimated Glomerular Filt Rate 56; Glucose 122 mg/dL (65-110); Magnesium 1.8 mg/dL (1.6-2.3); Potassium 3.7 mmol/L (3.4-5.0); Sodium 136 mmol/L (137-145)
[2023-10-29 05:14] LABS: Partial Thromboplastin Time 30.4 SECONDS (22.3-36.8)
[2023-10-29 08:24] LABS: Glucose Point of Care 161 mg/dl (65-105)
[2023-10-29] MEDS: CLOPIDOGREL BISULFATE 75 MG TABLET FEED TUBE (08:40)
[2023-10-29] MEDS: ASPIRIN 81 MG CHEWABLE TABLET FEED TUBE (08:40)
[2023-10-29] MEDS: GABAPENTIN 300 MG CAPSULE 600 MG FEED TUBE ×3 (08:41→17:55)
[2023-10-29] MEDS: ENOXAPARIN 40 MG/0.4 ML SYRINGE SUB-Q (08:41)
[2023-10-29] MEDS: METOPROLOL TARTRATE 50 MG TAB PO ×2 (08:41→20:59)
[2023-10-29] MEDS: FUROSEMIDE INJ 40 MG/4 ML VIAL IV PUSH (08:41)
[2023-10-29] MEDS: PANTOPRAZOLE SODIUM IV 40 MG VIAL IV PUSH ×2 (08:42→21:01)
[2023-10-29] MEDS: SPIRONOLACTONE 25 MG TABLET FEED TUBE (08:42)
[2023-10-29] MEDS: SACUBITRIL/VALSARTAN 24-26 MG TABLET 1 TAB XX ×2 (08:42→21:00)
[2023-10-29] MEDS: ROSUVASTATIN 20 MG TABLET 40 MG FEED TUBE (08:42)
--- NOTE | 2023-10-29 09:30 | PCNFU ---
Nutrition Follow-Up Complete: Unintentional weight loss related to diet changes as evidenced by significant weight loss after reducing intake, greater than patient intended. New Nutrition Problem: Inadequate energy intake related to swallowing difficulty, NPO as evidenced by modified barium swallow study findings of dysphagia Goal: PO intake 75% or greater - Not able to meet needs PO New Goal: Meet estimated protein energy needs Pt current nutrition is NPO. Nutrition recommendation: Initiate tube feeding: Glucerna 1.2 @ goal rate 75 ml/h (~94% EER), start at 30 ml/h and advance by 10 ml/q 4 hours till goal rate is reached. Flush 100 ml q 4 hours to meet fluid requirements. Last recorded weight is 83.5 kg. Bowel Motility: Last BM 10/25/23 Labs Reviewed: Hgb 13.9, Alb 3.1, Na 136, GFR 56, BUN 22 Meds Noted: Lasix, novolog, protonix` Skin: WNL Additional Notes: Secondary to CVA, pt failed MBSS and NG in placed. Pt already pulled it out once, it was replaced, he pulls at it. Recommend starting TF: Glucerna 1.2 @ 75 ml/h: 1980 kcal, 99 g protein, 1328 ml free water. Flush 100 ml q 4 hours for total 1928 ml free water/day. Discussed with provider Gracie and RN Monitor intake, wt, labs, tolerance. Follow up Tuesdays and Fridays per policy
--- NOTE | 2023-10-29 09:42 | PCDIET ---
Tube feeding recommendations: Glucerna 1.2 @ goal rate 75 ml/h (~94% EER), start at 30 ml/h and advance by 10 ml/q 4 hours till goal rate is reached. Flush 100 ml q 4 hours to meet fluid requirements. 1980 kcal, 99 g protein, 1928 ml total free water.
--- NOTE | 2023-10-29 09:55 | PM.PNCARD ---
Progress Note: A&P Assessment and Plan (1) Acute CVA (cerebrovascular accident): Code(s): I63.9 - Cerebral infarction, unspecified Status: Acute Assessment and Plan: Concern for acute stroke in this patient. Patient had refused brain MRI. Head and neck CTA shows complete occlusion of the right internal carotid artery beginning at the distal bulb with resupply beginning at the carotid siphon likely via the right ophthalmic artery with likely additional resupply supplied via a patent right posterior commuting artery. Neurology consulted. On ASA, Plavix, statin. (2) NSTEMI (non-ST elevated myocardial infarction): Code(s): I21.4 - Non-ST elevation (NSTEMI) myocardial infarction Status: Acute Assessment and Plan: 10/26, cardiac cath was attempted -- Unsuccessful but uncomplicated attempt at performing coronary angiography, vein graft angiography and internal mammary graft angiography for lack of arterial access in this 58-year-old man.? Medical therapy will be continued for ischemic left ventricular dysfunction.? Angiography is not able to be performed as described above. Continue ASA 81mg once daily, Plavix, statin (3) HFrEF (heart failure with reduced ejection fraction): Code(s): I50.20 - Unspecified systolic (congestive) heart failure Status: Acute Assessment and Plan: Will switch his IV Lasix to PO. Continue Spironolactone, Toprol, Entresto. Eventually add SGLT2-inhibitor. Subjective Date/time seen: 10/29/23 09:55 Interval history: Reason for visit: NSTEMI, CHF HPI: Patient is a 58-year-old male who has a history of coronary disease status post CABG, ischemic cardiomyopathy, hypertension, hyperlipidemia, diabetes, carotid disease who came to the hospital yesterday because of chest pain.? Patient formally saw Dr. Mccabe.? Came to this hospital last December for chest pain and abnormal stress test and worsened cardiomyopathy.? Stress test showed fixed defects and patient was treated medically at that time.? Last night he had acute onset of chest pain located in the center of his chest without radiation.? It lasted for several hours with associated diaphoresis.? He also had significant diarrhea yesterday.? His symptoms persisted up until about 1:00 a.m. this morning in which his pain did go away.? Troponins have risen and peaked at 3.8.? He is now pain-free in his largest complaint at this stage is that he wants to eat.? He was started on nitroglycerin paste, heparin drip.? He was also diuresed and symptoms did gradually improve.? He states that he was not having any recent syncope, presyncope, paroxysmal nocturnal dyspnea, orthopnea, edema palpitations. Date of service 10/27: Yesterday, cardiac cath was attempted -- Unsuccessful but uncomplicated attempt at performing coronary angiography, vein graft angiography and internal mammary graft angiography for lack of arterial access in this 58-year-old man.? Medical therapy will be continued for ischemic left ventricular dysfunction.? Angiography is not able to be performed as described above. Overnight, patient noted to have left sided weakness with his left arm and altered mental status. CT Head shows no acute findings, however, multiple unchanged old infarcts in the bilateral cerebral hemispheres and additional small old infarct in the right parietal occipital region which is new since the prior study. Unable to obtain proper history or ROS from the patient today given his mental status. Brain MRI is pending. Date of service 10/28: More awake and alert today. Refused brain MRI yesterday. Has an NG tube in place. Reports some mild bleeding in his nose from it. Exam Const: General: no acute distress HENMT: Mouth: Yes dry mucous membranes Eyes: General: appearance normal, both eyes and all related structures Sclera: sclerae normal Resp: Effort & Inspection: normal respiratory effort Cardio: Rate: regular rate Rhythm: regular rhythm Skin: G
--- NOTE | 2023-10-29 10:15 | PCSTNOTE ---
Bedside speech therapy treatment attempted, but patient was bleeding from nose due to pulling on ng tube. Nursing notified and stated that he pulled out his tube during the night and it was reinserted. Patient will remain on list for speech therapy treatment and be seen tomorrow.
[2023-10-29 11:36] LABS: Glucose Point of Care 218 mg/dl (65-105)
--- NOTE | 2023-10-29 13:45 | PM.IMPN ---
Progress Note: A&P Assessment and Plan (1) Acute CVA (cerebrovascular accident): Code(s): I63.9 - Cerebral infarction, unspecified Status: Acute Assessment and Plan: 10/27: Concern for acute stroke in this patient. CT Brain no acute bleed, several old strokes noted. Brain MRI, Gage/Neck MRA is pending. MBS ordered, patient NPO except sips/meds at this time. Bedside swallow completed by this provider at 1200 with 3 ounces of water without straw, no choking or drainage from mouth but there was slight delayed swallow. Aspirin 324 ordered, Plavix 75 ordered, NO TPA/TNK due to onset symptoms yesterday that were initially thought to be sedation caused by medication with attempted cardiac catheterization. Ordered echo bubble study and Neurology consult. 10/28: NG tube placed. Advanced 4 cm per radiology recommendation. Repeat KUB ordered. Dietitian gave tube feeding recs for Glucerna at 75 ml per hour with 100 ml free water flush. Strict NPO. Patient will continue speech therapy and repeat barium swallow in a few days. Neurology to medically manage. ECHO completed. (2) NSTEMI (non-ST elevated myocardial infarction): Code(s): I21.4 - Non-ST elevation (NSTEMI) myocardial infarction Status: Acute Assessment and Plan: Carry forward from Cardiology Note: Patient has an ACS consistent with a non ST elevation myocardial infarction. Continue heparin drip. Continue nitroglycerin paste 1 in q.6 hours. His blood pressure is also markedly elevated. Stress test last year showed fixed defects but with this significant bump in troponin as well as chest pain syndrome, further ischemic workup is likely needed. He is currently pain free. Continue rosuvastatin, metoprolol tartrate 50 mg p.o. b.i.d., lisinopril, aspirin and clopidogrel. 2D echocardiogram Doppler were ordered and reviewed. Will allow him to eat a light breakfast for possible angiogram tomorrow afternoon depending on symptoms. Will obviously need to clarify previous grafts and review old records through Dr. Mccabe's office notes. -Cardiology to possibly take patient to clinical lab technologist later in the day tomorrow. Heparin drip continues. 10/26: Cardiac catheterization unable to be accomplished, patient will be medically optimized for the care per Cardiology 10/27: No chest pain 10/28: No chest pain. Cards switched IV lasix back to PO. Will need to add a SGLT2-inhibitor prior to discharge. Telemetry ordered. (3) CHF (congestive heart failure): Code(s): I50.9 - Heart failure, unspecified Status: Acute Assessment and Plan: Continue lisinopril, metoprolol, spironolactone. If able, add Jardiance or Farxiga. Will continue diuresis with furosemide but will reduce to 40 mg IV daily. KCL 40 mg p.o. x1. His CHF is related to ischemic cardiomyopathy and heart failure with reduced ejection fraction -Echo pending, above is from Cardiology note. No shortness of breath at time of my evaluation. 10/26: Echocardiogram shows EF of 30-35% with pulmonary artery hypertension. Cardiology plans to treat patient medical optimization. (4) Cardiomyopathy: Code(s): I42.9 - Cardiomyopathy, unspecified Status: Acute Assessment and Plan: Ischemic, NSTEMI -Started on Entresto. Continue with spironolactone, Toprol, and will need to add SGLT2-inhibitor prior to discharge. (5) Renal insufficiency: Code(s): N28.9 - Disorder of kidney and ureter, unspecified Status: Acute Assessment and Plan: Daily BMPs 10/28: Cr 1.30 down from 1.4 (6) Hypertension associated with diabetes: Code(s): E11.59 - Type 2 diabetes mellitus with other circulatory complications; I15.2 - Hypertension secondary to endocrine disorders Status: Acute Assessment and Plan: Elevated at present. (7) Hyperlipidemia associated with type 2 diabetes mellitus: Code(s): E11.69 - Type 2 diabetes mellitus with other specified complication; E78.5 - Hyperlipi
[2023-10-29 18:25] LABS: Glucose Point of Care 219 mg/dl (65-105)
[2023-10-29 20:43] LABS: Glucose Point of Care 237 mg/dl (65-105)
[2023-10-29] MEDS: ACETAMINOPHEN ELIXIR 325 MG/10.15 ML UDC 650 MG PO (20:59)
[2023-10-30] VITALS (18 sets, daily range): BP systolic 97–151; BP diastolic 46–81; PULSE 58–80; RESP 17–18; TEMP 36.2–36.8; O2SAT 95–100
[2023-10-30 00:21] LABS: Glucose Point of Care 267 mg/dl (65-105)
[2023-10-30] MEDS: NITROGLYCERIN OINTMENT 1 INCH DOSE TRANSDERM ×2 (00:32→05:37)
[2023-10-30] MEDS: INSULIN ASPART (*BKC) 100 UNITS/ML SUB-Q ×5 (00:32→23:42)
[2023-10-30] MEDS: CYCLOBENZAPRINE HCL 10 MG TABLET FEED TUBE (00:40)
[2023-10-30 05:25] LABS: Basophils Percent Auto 0.3 % (0.2-1.2); Eosinophils Absolute Auto 0.3 K/mm3 (0-0.3); Hematocrit 43.3 % (42.0-52.0); Hemoglobin 13.4 g/dL (14.0-18.0); Immature Granulocyte Absolute 0.03 K/mm3 (0.00-0.031); Immature Granulocyte Percent A 0.3 % (0-0.5); Lymphocytes Absolute Auto 1.84 K/mm3 (0.9-3.2); Lymphocytes Percent Auto 20.6 % (18.3-44.2); Mean Corpuscular HGB Conc 30.9 g/dl (32-36); Mean Corpuscular Volume 97.1 fl (80-100); Mean Platelet Volume 11.5 fl (7.4-10.4); Monocytes Percent Auto 11.6 % (2.6-8.5); Neutrophils Absolute Auto 5.7 K/mm3 (1.3-6.7); Neutrophils Percent Auto 64.2 % (45.5-73.1); Platelet Count Result 228 k/mm3 (150-375); Red Blood Count 4.46 M/mm3 (4.6-6.20); Red Cell Distribution Width 13.7 % (11.5-14.5)
[2023-10-30 05:43] LABS: Alanine Aminotransferase 63 U/L (6-50); Albumin Level 2.9 g/dL (3.5-5.1); Alkaline Phosphatase 199 U/L (38-126); Anion Gap 4 mmol/L (8-16); Aspartate Amino Transferase 34 U/L (17-59); Bilirubin,Total 0.5 mg/dL (0.2-1.3); Blood Urea Nitrogen 24 mg/dL (9-20); Calcium 8.1 mg/dL (8.4-10.2); Carbon Dioxide 29 mmol/L (22-30); Chloride 100 mmol/L (98-107); Estimated CRCL calculation 67 ml/min; Estimated Glomerular Filt Rate > 60; Glucose 244 mg/dL (65-110); Magnesium 1.8 mg/dL (1.6-2.3); Potassium 3.6 mmol/L (3.4-5.0); Sodium 133 mmol/L (137-145)
[2023-10-30 05:46] LABS: Partial Thromboplastin Time 32.4 SECONDS (22.3-36.8)
[2023-10-30] MEDS: ASPIRIN 81 MG CHEWABLE TABLET FEED TUBE (08:41)
[2023-10-30] MEDS: GABAPENTIN 300 MG CAPSULE 600 MG FEED TUBE ×3 (08:42→18:28)
[2023-10-30] MEDS: FUROSEMIDE 40 MG TABLET PO (08:43)
[2023-10-30] MEDS: PANTOPRAZOLE SODIUM IV 40 MG VIAL IV PUSH ×2 (08:43→20:04)
[2023-10-30] MEDS: CLOPIDOGREL BISULFATE 75 MG TABLET FEED TUBE (08:43)
--- NOTE | 2023-10-30 09:50 | PM.PNCARD ---
Progress Note: A&P Assessment and Plan (1) Acute CVA (cerebrovascular accident): Code(s): I63.9 - Cerebral infarction, unspecified Status: Acute Assessment and Plan: Concern for acute stroke in this patient. Patient had refused brain MRI. Head and neck CTA shows complete occlusion of the right internal carotid artery beginning at the distal bulb with resupply beginning at the carotid siphon likely via the right ophthalmic artery with likely additional resupply supplied via a patent right posterior commuting artery. Neurology consulted. On ASA, Plavix, statin. (2) NSTEMI (non-ST elevated myocardial infarction): Code(s): I21.4 - Non-ST elevation (NSTEMI) myocardial infarction Status: Acute Assessment and Plan: 10/26, cardiac cath was attempted -- Unsuccessful but uncomplicated attempt at performing coronary angiography, vein graft angiography and internal mammary graft angiography for lack of arterial access in this 58-year-old man.? Medical therapy will be continued for ischemic left ventricular dysfunction.? Angiography is not able to be performed as described above. Continue ASA 81mg once daily, Plavix, statin (3) HFrEF (heart failure with reduced ejection fraction): Code(s): I50.20 - Unspecified systolic (congestive) heart failure Status: Acute Assessment and Plan: Continue PO Lasix. Continue Spironolactone, Toprol, Entresto. Added Jardiance 10mg once daily today. Plan Cardiology will sign off at this time. Will arrange follow up in our office. Please call us back if needed. Subjective Date/time seen: 10/30/23 09:50 Interval history: Reason for visit: NSTEMI, CHF HPI: Patient is a 58-year-old male who has a history of coronary disease status post CABG, ischemic cardiomyopathy, hypertension, hyperlipidemia, diabetes, carotid disease who came to the hospital yesterday because of chest pain.? Patient formally saw Dr. Mccabe.? Came to this hospital last December for chest pain and abnormal stress test and worsened cardiomyopathy.? Stress test showed fixed defects and patient was treated medically at that time.? Last night he had acute onset of chest pain located in the center of his chest without radiation.? It lasted for several hours with associated diaphoresis.? He also had significant diarrhea yesterday.? His symptoms persisted up until about 1:00 a.m. this morning in which his pain did go away.? Troponins have risen and peaked at 3.8.? He is now pain-free in his largest complaint at this stage is that he wants to eat.? He was started on nitroglycerin paste, heparin drip.? He was also diuresed and symptoms did gradually improve.? He states that he was not having any recent syncope, presyncope, paroxysmal nocturnal dyspnea, orthopnea, edema palpitations. Date of service 10/27: Yesterday, cardiac cath was attempted -- Unsuccessful but uncomplicated attempt at performing coronary angiography, vein graft angiography and internal mammary graft angiography for lack of arterial access in this 58-year-old man.? Medical therapy will be continued for ischemic left ventricular dysfunction.? Angiography is not able to be performed as described above. Overnight, patient noted to have left sided weakness with his left arm and altered mental status. CT Head shows no acute findings, however, multiple unchanged old infarcts in the bilateral cerebral hemispheres and additional small old infarct in the right parietal occipital region which is new since the prior study. Unable to obtain proper history or ROS from the patient today given his mental status. Brain MRI is pending. Date of service 10/28: More awake and alert today. Refused brain MRI yesterday. Has an NG tube in place. Reports some mild bleeding in his nose from it. Date of service 10/29: Sitting up in chair today. Patient appears confused. Review of Systems Review of Systems: ROS unobtainable: Yes unobtainable due to mental status Exam Const
--- NOTE | 2023-10-30 10:44 | PM.IMPN ---
Progress Note: A&P Assessment and Plan (1) Acute CVA (cerebrovascular accident): Code(s): I63.9 - Cerebral infarction, unspecified Status: Acute Assessment and Plan: 10/27: Concern for acute stroke in this patient. CT Brain no acute bleed, several old strokes noted. Brain MRI, Gage/Neck MRA is pending. MBS ordered, patient NPO except sips/meds at this time. Bedside swallow completed by this provider at 1200 with 3 ounces of water without straw, no choking or drainage from mouth but there was slight delayed swallow. Aspirin 324 ordered, Plavix 75 ordered, NO TPA/TNK due to onset symptoms yesterday that were initially thought to be sedation caused by medication with attempted cardiac catheterization. Ordered echo bubble study and Neurology consult. 10/28: NG tube placed. Advanced 4 cm per radiology recommendation. Repeat KUB ordered. Dietitian gave tube feeding recs for Glucerna at 75 ml per hour with 100 ml free water flush. Strict NPO. Patient will continue speech therapy and repeat barium swallow in a few days. Neurology to medically manage. ECHO completed. 10/29: Left arm weakness slowly improving. Still has a poor security officer. Continue to work with speech therapy. Therapist cleared him for ice chips when up to the chair. (2) NSTEMI (non-ST elevated myocardial infarction): Code(s): I21.4 - Non-ST elevation (NSTEMI) myocardial infarction Status: Acute Assessment and Plan: Carry forward from Cardiology Note: Patient has an ACS consistent with a non ST elevation myocardial infarction. Continue heparin drip. Continue nitroglycerin paste 1 in q.6 hours. His blood pressure is also markedly elevated. Stress test last year showed fixed defects but with this significant bump in troponin as well as chest pain syndrome, further ischemic workup is likely needed. He is currently pain free. Continue rosuvastatin, metoprolol tartrate 50 mg p.o. b.i.d., lisinopril, aspirin and clopidogrel. 2D echocardiogram Doppler were ordered and reviewed. Will allow him to eat a light breakfast for possible angiogram tomorrow afternoon depending on symptoms. Will obviously need to clarify previous grafts and review old records through Dr. Mccabe's office notes. -Cardiology to possibly take patient to laboratory mechanical technician later in the day tomorrow. Heparin drip continues. 10/26: Cardiac catheterization unable to be accomplished, patient will be medically optimized for the care per Cardiology 10/27: No chest pain 10/28: No chest pain. Cards switched IV lasix back to PO. Will need to add a SGLT2-inhibitor prior to discharge. Telemetry ordered. 10/29: Jardiance was started by Cards and he needs to follow up with them as an outpatient. (3) CHF (congestive heart failure): Qualifiers: Heart failure type: systolic Heart failure chronicity: acute on chronic Qualified Code(s): I50.23 - Acute on chronic systolic (congestive) heart failure Code(s): I50.9 - Heart failure, unspecified Status: Acute Assessment and Plan: Continue lisinopril, metoprolol, spironolactone. If able, add Jardiance or Farxiga. Will continue diuresis with furosemide but will reduce to 40 mg IV daily. KCL 40 mg p.o. x1. His CHF is related to ischemic cardiomyopathy and heart failure with reduced ejection fraction -Echo pending, above is from Cardiology note. No shortness of breath at time of my evaluation. 10/26: Echocardiogram shows EF of 30-35% with pulmonary artery hypertension. Cardiology plans to treat patient medical optimization. 10/29:No swelling appreciated. No SOB. Denies chest pain. (4) Cardiomyopathy: Code(s): I42.9 - Cardiomyopathy, unspecified Status: Acute Assessment and Plan: Ischemic, NSTEMI -Started on Entresto. Continue with spironolactone, Toprol, and will need to add SGLT2-inhibitor prior to discharge. 10/29: Jardiance started. (5) Renal insufficiency: Code(s): N28.9 - Disorder of kidney and ureter, uns
--- NOTE | 2023-10-30 10:52 | PCSTNOTE ---
Speech therapy treatment note: Patient has pulled out ng tube 3 times since yesterday and per nursing complains of thirst frequently. After thorough chart review and bedside trials of sips of water by straw, cup, and spoon and ice chips by spoon a modified free water protocol is recommended at this time. Specifically, patient must be positioned upright (approximately 90 degrees at hip) either in chair or bed at which time small amounts of water and or ice may be given. Patient must be supervised by staff. Small bites or sips with a short pause in between may be taken by the patient. Ice chips by spoon or hand, water sips by spoon, cup, or straw. Patient may require reminders to take small amounts and to swallow completely before taking another. Another modified barium swallow study is recommended in a day or two as patient is regaining strength and swallowing ability may have improved. Until that time, NPO status with modified free water protocol is recommended. Patient education has been provided. Nursing staff and physician have been consulted.
[2023-10-30 11:17] LABS: Glucose Point of Care 249 mg/dl (65-105)
--- NOTE | 2023-10-30 11:17 | P.CDI_ITS ---
CDI Query Clarification Request CHF documented in the assessment and plan. Elevated BNP on 10/25/23 lab work. Patient receiving Lasix, Entresto, and Jardiance. 10/27/23 Echo notes EF 30-35% and grade ll diastolic dysfunction. 10/25/23 CT notes pulmonary edema and pleural effusion. Please specify type and acuity of heart failure if known. * Acute * Chronic * Acute on Chronic * Unknown * Systolic * Diastolic * Combined Systolic and Diastolic * Unknown <Aby Villalpando RN - Last Filed: 10/30/23 11:22> Clarified Diagnosis Clarified Diagnosis: acute on chronic systolic heart failure <Gracie Olivera APRN - Last Filed: 10/30/23 16:09>
[2023-10-30] MEDS: ROSUVASTATIN 20 MG TABLET 40 MG FEED TUBE (12:23)
[2023-10-30] MEDS: polyethylene glycoL 3350 17 GM POWD.PACK PO (12:23)
[2023-10-30] MEDS: ENOXAPARIN 40 MG/0.4 ML SYRINGE SUB-Q (12:23)
[2023-10-30] MEDS: METOPROLOL TARTRATE 50 MG TAB PO ×2 (12:23→20:03)
[2023-10-30] MEDS: SACUBITRIL/VALSARTAN 24-26 MG TABLET 1 TAB XX ×2 (12:24→20:23)
[2023-10-30] MEDS: SPIRONOLACTONE 25 MG TABLET FEED TUBE (12:24)
[2023-10-30] MEDS: EMPAGLIFLOZIN 10 MG TABLET PO (12:52)
[2023-10-30] MEDS: ACETAMINOPHEN ELIXIR 325 MG/10.15 ML UDC 650 MG PO ×3 (13:53→23:43)
[2023-10-30 18:18] LABS: Glucose Point of Care 260 mg/dl (65-105)
--- NOTE | 2023-10-30 19:07 | WPDNEUROPN ---
Progress Note: A&P Assessment and Plan (1) Cerebrovascular accident: Code(s): I63.9 - Cerebral infarction, unspecified Status: Acute (2) Hypertension associated with diabetes: Code(s): E11.59 - Type 2 diabetes mellitus with other circulatory complications; I15.2 - Hypertension secondary to endocrine disorders Status: Acute Plan The patient is stable and today is being treated with antiplatelets and statins and should continue the same. I do not have any additional recommendations. Neurology will sign off unless any other new problems. Subjective Date/time seen: 10/30/23 19:07 Interval history: patient was seen previously due to symptoms of left facial droop. Please refer to previous Neurology consultation note by Dr. Ellis. patient has not had any further symptoms. Exam Const: General: comfortable and no acute distress Eyes: General: appearance normal, both eyes and all related structures Neck: Neck: supple Neuro: General: deep tendon reflexes 2+ bilaterally ( Deep tendon reflexes are 12/4 but no asymmetry) Speech: normal speech Motor exam (neuro): 5/5 motor strength present throughout Sensory Exam: normal sensation Objective Data Vital Signs Vital Signs: Vital Signs - 24 hr 10/29/23 19:47 10/29/23 20:00 10/29/23 20:59 Temperature 36.2 C L Pulse Rate 81 83 Respiratory Rate 18 Blood Pressure 148/56 H Pulse Oximetry 94 Oxygen Delivery Room Air 10/29/23 20:00 10/30/23 00:06 10/30/23 00:00 Temperature 36.2 C L Pulse Rate 80 71 Respiratory Rate 17 Blood Pressure 137/53 L Pulse Oximetry 95 Oxygen Delivery Room Air 10/30/23 03:26 10/30/23 03:38 10/30/23 00:00 Temperature 36.8 C Pulse Rate 66 77 Respiratory Rate 18 Blood Pressure 151/56 H Pulse Oximetry 97 Oxygen Delivery Room Air 10/29/23 22:00 10/30/23 04:00 10/30/23 06:00 Temperature Pulse Rate 64 80 76 Respiratory Rate Blood Pressure Pulse Oximetry Oxygen Delivery 10/30/23 07:37 10/30/23 08:00 10/30/23 08:00 Temperature 36.6 C Pulse Rate 64 65 72 Respiratory Rate 18 18 Blood Pressure 111/46 L Pulse Oximetry 97 Oxygen Delivery Room Air 10/30/23 10:00 10/30/23 11:51 10/30/23 12:23 Temperature 36.6 C Pulse Rate 72 68 Respiratory Rate 18 Blood Pressure 123/81 Pulse Oximetry 100 Oxygen Delivery 10/30/23 12:00 10/30/23 12:00 10/30/23 16:00 Temperature 36.6 C Pulse Rate 63 68 Respiratory Rate 18 Blood Pressure 120/57 L Pulse Oximetry 98 Oxygen Delivery Room Air 10/30/23 16:00 10/30/23 16:00 Temperature Pulse Rate 69 Respiratory Rate Blood Pressure Pulse Oximetry Oxygen Delivery Room Air Intake/Output Intake/Output: Intake & Output 10/27/23 10/28/23 10/29/23 10/30/23 23:59 23:59 23:59 23:59 Intake Total 310 826 0431 Output Total 1800 2800 1000 3217 [facility] -1043 -2310 -1000 -1771 Meds/Results Medications: Active Medications Generic Name Dose Route Start Last Admin Trade Name Freq PRN Reason Stop Dose Admin Acetaminophen 650 mg 10/29/23 18:07 10/30/23 13:53 Acetaminophen Elixir 325 Mg/10.15 Ml Udc PO 650 mg Q4H PRN Administration Mild Pain (1-3) or Fever Aspirin 81 mg 10/29/23 08:00 10/30/23 08:41 Aspirin 81 Mg Chewable Tablet FEED TUBE 81 mg DAILY@0800 TJ Administration Clopidogrel Bisulfate 75 mg 10/29/23 09:00 10/30/23 08:43 Clopidogrel Bisulfate 75 Mg Tablet FEED TUBE 75 mg QAM TJ Administration Cyclobenzaprine HCl 10 mg 10/28/23 17:14 10/30/23 00:40 Cyclobenzaprine Hcl 10 Mg Tablet FEED TUBE 10 mg HS PRN Administration muscle spasm Dextrose 12.5 gm 10/26/23 11:51 Dextrose 50% 25 Gm/50 Ml Syringe IV PUSH PRN PRN Hypoglycemia Protocol Empagliflozin 10 mg 10/30/23 09:10 10/30/23 12:52 Empagliflozin 10 Mg Tablet PO 10 mg DAILY TJ Administration Enoxaparin Sodium 40 mg
[2023-10-30] MEDS: INSULIN GLARGINE (*BKC) 100 UNITS/ML 8 UNITS SUB-Q (20:05)
[2023-10-30 23:51] LABS: Glucose Point of Care 260 mg/dl (65-105)
[2023-10-31] VITALS (12 sets, daily range): BP systolic 131–150; BP diastolic 56–65; PULSE 60–84; RESP 18; TEMP 36.4–36.6; O2SAT 96–97; BMI 21.3
[2023-10-31] MEDS: LORazepam INJ (*CRX) 2 MG/ML VIAL 1 MG IV PUSH (02:07)
[2023-10-31] MEDS: diphenhydrAMINE HCl INJ 50 MG/ML VIAL IV PUSH (02:08)
[2023-10-31 04:34] LABS: Basophils Percent Auto 0.2 % (0.2-1.2); Eosinophils Absolute Auto 0.5 K/mm3 (0-0.3); Eosinophils Percent Auto 4.3 % (0-4.4); Hemoglobin 12.7 g/dL (14.0-18.0); Immature Granulocyte Absolute 0.03 K/mm3 (0.00-0.031); Immature Granulocyte Percent A 0.3 % (0-0.5); Lymphocytes Absolute Auto 1.93 K/mm3 (0.9-3.2); Lymphocytes Percent Auto 18.5 % (18.3-44.2); Mean Corpuscular HGB Conc 31.8 g/dl (32-36); Mean Corpuscular Hemoglobin 29.7 pg (26-34); Mean Corpuscular Volume 93.5 fl (80-100); Mean Platelet Volume 11.4 fl (7.4-10.4); Monocytes Percent Auto 9.5 % (2.6-8.5); Neutrophils Percent Auto 67.2 % (45.5-73.1); Platelet Count Result 250 k/mm3 (150-375); Red Blood Count 4.28 M/mm3 (4.6-6.20); Red Cell Distribution Width 13.7 % (11.5-14.5); White Blood Count 10.4 K/mm3 (4.5-10.0)
[2023-10-31 04:46] LABS: Partial Thromboplastin Time 29.5 SECONDS (22.3-36.8)
[2023-10-31 04:51] LABS: Alanine Aminotransferase 51 U/L (6-50); Alkaline Phosphatase 216 U/L (38-126); Anion Gap 5 mmol/L (8-16); Aspartate Amino Transferase 29 U/L (17-59); Bilirubin,Total 0.4 mg/dL (0.2-1.3); Blood Urea Nitrogen 24 mg/dL (9-20); Calcium 8.1 mg/dL (8.4-10.2); Carbon Dioxide 28 mmol/L (22-30); Chloride 100 mmol/L (98-107); Estimated CRCL calculation 67 ml/min; Estimated Glomerular Filt Rate > 60; Glucose 225 mg/dL (65-110); Potassium 3.5 mmol/L (3.4-5.0); Sodium 133 mmol/L (137-145)
[2023-10-31] MEDS: INSULIN ASPART (*BKC) 100 UNITS/ML SUB-Q ×5 (05:05→23:37)
[2023-10-31 05:11] LABS: Hemoglobin A1C 13.2 % (<5.7)
--- NOTE | 2023-10-31 07:52 | PM.IMPN ---
Progress Note: A&P Assessment and Plan (1) Acute CVA (cerebrovascular accident): Code(s): I63.9 - Cerebral infarction, unspecified Status: Acute Assessment and Plan: 10/27: Concern for acute stroke in this patient. CT Brain no acute bleed, several old strokes noted. Brain MRI, Gage/Neck MRA is pending. MBS ordered, patient NPO except sips/meds at this time. Bedside swallow completed by this provider at 1200 with 3 ounces of water without straw, no choking or drainage from mouth but there was slight delayed swallow. Aspirin 324 ordered, Plavix 75 ordered, NO TPA/TNK due to onset symptoms yesterday that were initially thought to be sedation caused by medication with attempted cardiac catheterization. Ordered echo bubble study and Neurology consult. 10/28: NG tube placed. Advanced 4 cm per radiology recommendation. Repeat KUB ordered. Dietitian gave tube feeding recs for Glucerna at 75 ml per hour with 100 ml free water flush. Strict NPO. Patient will continue speech therapy and repeat barium swallow in a few days. Neurology to medically manage. ECHO completed. 10/29: Left arm weakness slowly improving. 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 Continue to work with speech therapy. Therapist cleared him for ice chips when up to the chair. 10/30: Persistent left-sided weakness and facial droop. He is working with PT/OT/ST. (2) NSTEMI (non-ST elevated myocardial infarction): Code(s): I21.4 - Non-ST elevation (NSTEMI) myocardial infarction Status: Acute Assessment and Plan: Carry forward from Cardiology Note: Patient has an ACS consistent with a non ST elevation myocardial infarction. Continue heparin drip. Continue nitroglycerin paste 1 in q.6 hours. His blood pressure is also markedly elevated. Stress test last year showed fixed defects but with this significant bump in troponin as well as chest pain syndrome, further ischemic workup is likely needed. He is currently pain free. Continue rosuvastatin, metoprolol tartrate 50 mg p.o. b.i.d., lisinopril, aspirin and clopidogrel. 2D echocardiogram Doppler were ordered and reviewed. Will allow him to eat a light breakfast for possible angiogram tomorrow afternoon depending on symptoms. Will obviously need to clarify previous grafts and review old records through Dr. Mccabe's office notes. 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 Heparin drip continues. 10/26: Cardiac catheterization unable to be accomplished, patient will be medically optimized for the care per Cardiology 10/27: No chest pain 10/28: No chest pain. Cards switched IV lasix back to PO. Will need to add a SGLT2-inhibitor prior to discharge. Telemetry ordered. 10/29: Jardiance was started by Cards and he needs to follow up with them as an outpatient. 10/30: Cardiology has signed off. (3) CHF (congestive heart failure): Qualifiers: Heart failure chronicity: acute on chronic Heart failure type: systolic Qualified Code(s): I50.23 - Acute on chronic systolic (congestive) heart failure Code(s): I50.9 - Heart failure, unspecified Status: Acute Assessment and Plan: Continue lisinopril, metoprolol, spironolactone. If able, add Jardiance or Farxiga. Will continue diuresis with furosemide but will reduce to 40 mg IV daily. KCL 40 mg p.o. x1. His CHF is related to ischemic cardiomyopathy and heart failure with reduced ejection fraction -Echo pending, above is from Cardiology note. No shortness of breath at time of my evaluation. 10/26: Echocardiogram shows EF of 30-35% with pulmonary artery hypertension. Cardiology plans to treat patient medical optimization. 10/29:No swelling appreciated. No SOB. Denies chest pain. 10/30: Stable. Continue with oral agents. Denies chest pain, no shortness of breath. (4) Cardiomyopathy: Code(s): I42.9 - Cardiomyopathy, unspecified Status: Acute Assessment and Plan: Ischemic, NSTEMI -Started on Entrest
[2023-10-31 08:39] LABS: Procalcitonin 0.1 ng/mL
[2023-10-31 08:42] LABS: Glucose Point of Care 218 mg/dl (65-105)
[2023-10-31] MEDS: ROSUVASTATIN 20 MG TABLET 40 MG FEED TUBE (09:06)
[2023-10-31] MEDS: ASPIRIN 81 MG CHEWABLE TABLET FEED TUBE (09:06)
[2023-10-31] MEDS: GABAPENTIN 300 MG CAPSULE 600 MG FEED TUBE ×3 (09:07→17:52)
[2023-10-31] MEDS: METOPROLOL TARTRATE 50 MG TAB PO ×2 (09:07→20:50)
[2023-10-31] MEDS: FUROSEMIDE 40 MG TABLET PO (09:07)
[2023-10-31] MEDS: EMPAGLIFLOZIN 10 MG TABLET PO (09:07)
[2023-10-31] MEDS: SACUBITRIL/VALSARTAN 24-26 MG TABLET 1 TAB XX ×2 (09:07→20:50)
[2023-10-31] MEDS: CLOPIDOGREL BISULFATE 75 MG TABLET FEED TUBE (09:07)
[2023-10-31] MEDS: SPIRONOLACTONE 25 MG TABLET FEED TUBE (09:08)
[2023-10-31] MEDS: PANTOPRAZOLE SODIUM IV 40 MG VIAL IV PUSH ×2 (09:08→20:55)
[2023-10-31] MEDS: ENOXAPARIN 40 MG/0.4 ML SYRINGE SUB-Q (09:08)
[2023-10-31] MEDS: polyethylene glycoL 3350 17 GM POWD.PACK PO (09:10)
--- NOTE | 2023-10-31 09:42 | WPDNEUROPN ---
Progress Note: A&P Assessment and Plan (1) Cerebrovascular accident: Code(s): I63.9 - Cerebral infarction, unspecified Status: Acute (2) Right carotid artery occlusion: Code(s): I65.21 - Occlusion and stenosis of right carotid artery Status: Acute (3) Hyperlipidemia associated with type 2 diabetes mellitus: Code(s): E11.69 - Type 2 diabetes mellitus with other specified complication; E78.5 - Hyperlipidemia, unspecified Status: Acute (4) Hypertension associated with diabetes: Code(s): E11.59 - Type 2 diabetes mellitus with other circulatory complications; I15.2 - Hypertension secondary to endocrine disorders Status: Acute (5) NSTEMI (non-ST elevated myocardial infarction): Code(s): I21.4 - Non-ST elevation (NSTEMI) myocardial infarction Status: Acute (6) Insulin dependent type 2 diabetes mellitus: Code(s): E11.9 - Type 2 diabetes mellitus without complications; Z79.4 - intermediate designer (current) use of insulin Status: Acute Plan Mr. Flores is a 58 year old male with a history of CAD, LLE amputation, diabetes, seizure, carotid disease, prior AK, HTN, HLD, depression, and hepatitis C who devloped L sided weakness during admission for NSTEMI. CT head showed no acute changes, but CTA brain/carotid showed completel occlusion of the R carotid artery. MRI brain has not been done, but etiology of stroke seems most likely to be related to large vessel disease as noted on CTA. There is no role of urgent intervention with complete occlusion of the carotid artery, will need to optimize medical therapy. - Obtain MRI brain - Agree with Aspirin 81mg daily - Agree with Plavix 75mg daily for at least 3 months -- longer if needed from cardiac standpoint - Switch to Lipitor 80mg daily - Check HgbA1c - Outpatient vascular follow-up Subjective Date/time seen: 10/31/23 09:42 Interval history: Mr. Flores is a 58 year old male with a history of CAD, LLE amputation, diabetes, seizure, carotid disease, prior AK, HTN, HLD, depression, and hepatitis C who presented due to shortness of breath. Work up in the ED was significant for elevated troponins. He was ultimately diagnosed with NSTEMI. L heart catheterization was attempted but could not be done due to lack of arterial access. He was continued on his home baby aspirin 81mg daily and started on Plavix 75mg daily. on 10/26 he developed change in his mentation and L sided weakness. CT head was obtained at the time which showed old bihemispheric infarcts, as well as small chronc R parietal/occipital infarct (which was new compared to his last CT head which was done in April 2023. CTA brain/carotid showd complete occlusion of the R carotid artery. His LDL from this admission is 88. His A2cc from December 2022 is 8.3. He takes Crestor 40mg daily. He had a bubble study during this admission that showed EF 30-35% and was negative for shunt. Review of Systems Review of Systems: All systems reviewed & are unremarkable except as noted in HPI and below Exam Const: General: comfortable and no acute distress HENMT: Mouth: Yes moist mucous membranes Eyes: Pupils: Equal, round and reactive pupils present EOM: EOMs intact bilaterally Resp: Effort & Inspection: normal respiratory effort Skin: General skin exam: normal color Neuro: Other: Awake, alert, oriented to self, location, and year. PERRL, EOMI, L facial droop. Facial sensation is intact. Strength is intact in RUE and RLE. LUE shoulder abduction is 3/5, and there is no programmer engineering and scientific strength on the left. He has LLE amputation up to the hip. Sensation in the face and bilateral upper extremities is symmetric. FNF on the R is normal. Unable to perform on the left. Some slowness in speech fluency but comprehension is intact. Extrem: Other: LLE amputation Psych: Mental Status: mental status grossly normal Other: flat affect Objective Data Vital Signs Vital Signs: Vital Signs - 24 hr
[2023-10-31 10:09] LABS: Lactic Acid Reflex 1.9 mmol/L (0.7-2.0)
--- NOTE | 2023-10-31 10:43 | PCNFU ---
Nutrition Follow-Up Complete: Unintentional weight loss related to diet changes as evidenced by significant weight loss after reducing intake, greater than patient intended. Goal: PO intake 75% or greater-goal not met. New goal: Meet estimated nutritional needs. Pt current nutrition is Glucerna 1.2 at 75 ml/hr Last recorded weight is 79.5 kg, down from 84 kg on admit. Bowel Motility: Last reported BM 10/24. Patient is on Miralax. Labs Reviewed: Glu 225, Na 133, Alb 3.0,Hct 40.0,Hgb 12.7 Meds Noted: Miralax, Lopressor, Lasix, Protonix, NovoLog Skin: WNL Additional Notes: Spoke with nursing today. Patient has pulled NGT x 4. NGT has been reinserted and tube feedings are running at goal rate of 75 ml/hr Glucerna 1.2. Tube feeding is providing 1980 kcals/99 gms protein/1328 ml water. Flush 100 ml q 4 hours. Tube feeding is meeting 94% caloric needs at 25 kcal/kg and 100% protein needs at 1.0-1.2 gms/kg. Agree with diet orders at this time. Monitor intake, wt, labs. Follow up every Friday and Friday.
[2023-10-31 12:39] LABS: Glucose Point of Care 256 mg/dl (65-105)
[2023-10-31 13:45] LABS: Appearance Urine Clear (Clear); Bacteria Urine None Seen /hpf; Bilirubin Urine Negative (Negative); Blood Urine 3+ (Negative); Color Urine Yellow (Yellow); Glucose Urine UA 3+ mg/dL (Negative); Ketones Urine Trace mg/dL (Negative); Leukocyte Esterase Ur Negative LEU/UL (Negative); Nitrate Urine Negative (Negative); Non Pathogenic Casts 0-2; Protein Urine 3+ mg/dL (Negative); RBC Urine >100 /hpf (0-2); Specific Grav Ur 1.018 (1.001-1.035); Squamous Epithelial Cell Urine None seen /hpf (Few); WBC Urine 0-5 /hpf
[2023-10-31 13:50] LABS: Add Urine Microscopic? YES
[2023-10-31 17:25] LABS: Glucose Point of Care 219 mg/dl (65-105)
[2023-10-31 21:17] LABS: Glucose Point of Care 86 mg/dl (65-105)
--- NOTE | 2023-10-31 23:35 | PC.NURSE ---
This patient, Calvin Flores, was transferred to [facility] on 10/31/23 at 2310. Personal belongings sent with patient. Report given to Steve. Appropriate documentation sent with patient. Patient's sister/POA was notified via telephone at [phone] of transfer and new room number.
[2023-10-31 23:37] LABS: Glucose Point of Care 160 mg/dl (65-105)
[2023-11-01 04:42] VITALS: BP 138/56; PULSE 78; RESP 16; TEMP 36.6; O2SAT 96
[2023-11-01 05:28] LABS: Basophils Percent Auto 0.3 % (0.2-1.2); Eosinophils Absolute Auto 0.3 K/mm3 (0-0.3); Hematocrit 40.2 % (42.0-52.0); Immature Granulocyte Absolute 0.01 K/mm3 (0.00-0.031); Immature Granulocyte Percent A 0.1 % (0-0.5); Lymphocytes Percent Auto 23.9 % (18.3-44.2); Mean Corpuscular HGB Conc 32.3 g/dl (32-36); Mean Corpuscular Hemoglobin 30.1 pg (26-34); Mean Corpuscular Volume 93.1 fl (80-100); Mean Platelet Volume 11.6 fl (7.4-10.4); Monocytes Percent Auto 9.5 % (2.6-8.5); Neutrophils Absolute Auto 6.6 K/mm3 (1.3-6.7); Neutrophils Percent Auto 63.2 % (45.5-73.1); Platelet Count Result 275 k/mm3 (150-375); Red Blood Count 4.32 M/mm3 (4.6-6.20); Red Cell Distribution Width 13.6 % (11.5-14.5); White Blood Count 10.5 K/mm3 (4.5-10.0)
[2023-11-01 05:36] LABS: Partial Thromboplastin Time 31.4 SECONDS (22.3-36.8)
[2023-11-01 05:43] LABS: Alanine Aminotransferase 41 U/L (6-50); Alkaline Phosphatase 204 U/L (38-126); Anion Gap 4 mmol/L (8-16); Aspartate Amino Transferase 35 U/L (17-59); Bilirubin,Total 0.4 mg/dL (0.2-1.3); Blood Urea Nitrogen 24 mg/dL (9-20); Calcium 8.2 mg/dL (8.4-10.2); Carbon Dioxide 30 mmol/L (22-30); Chloride 100 mmol/L (98-107); Estimated CRCL calculation 61 ml/min; Estimated Glomerular Filt Rate 56; Glucose 212 mg/dL (65-110); Potassium 3.8 mmol/L (3.4-5.0); Sodium 134 mmol/L (137-145)
[2023-11-01 06:29] LABS: Glucose Point of Care 213 mg/dl (65-105)
[2023-11-01 06:30] VITALS: BP 158/63; PULSE 80; RESP 16; TEMP 36.5; O2SAT 97
[2023-11-01] MEDS: INSULIN ASPART (*BKC) 100 UNITS/ML SUB-Q ×4 (06:32→17:26)
--- NOTE | 2023-11-01 07:17 | PM.IMPN ---
Progress Note: A&P Assessment and Plan (1) Acute CVA (cerebrovascular accident): Code(s): I63.9 - Cerebral infarction, unspecified Status: Acute Assessment and Plan: 10/27: Concern for acute stroke in this patient. CT Brain no acute bleed, several old strokes noted. Brain MRI, Gage/Neck MRA is pending. MBS ordered, patient NPO except sips/meds at this time. Bedside swallow completed by this provider at 1200 with 3 ounces of water without straw, no choking or drainage from mouth but there was slight delayed swallow. Aspirin 324 ordered, Plavix 75 ordered, NO TPA/TNK due to onset symptoms yesterday that were initially thought to be sedation caused by medication with attempted cardiac catheterization. Ordered echo bubble study and Neurology consult. 10/28: NG tube placed. Advanced 4 cm per radiology recommendation. Repeat KUB ordered. Dietitian gave tube feeding recs for Glucerna at 75 ml per hour with 100 ml free water flush. Strict NPO. Patient will continue speech therapy and repeat barium swallow in a few days. Neurology to medically manage. ECHO completed. 10/29: Left arm weakness slowly improving. 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 Continue to work with speech therapy. Therapist cleared him for ice chips when up to the chair. 10/30: Persistent left-sided weakness and facial droop. He is working with PT/OT/ST. 10/31: Passed repeat modified barium swallow with speech therapy today. Per speech recommendations he can have pureed diet, level 4 and moderately thick liquids, level 3. He needs one-to-one supervision for all feeding. Reviewed recs from Dr. Zheng's note. Change statin to atorvastatin 80 mg daily. MRI brain was ordered. Patient already on aspirin and Plavix. (2) NSTEMI (non-ST elevated myocardial infarction): Code(s): I21.4 - Non-ST elevation (NSTEMI) myocardial infarction Status: Acute Assessment and Plan: Carry forward from Cardiology Note: Patient has an ACS consistent with a non ST elevation myocardial infarction. Continue heparin drip. Continue nitroglycerin paste 1 in q.6 hours. His blood pressure is also markedly elevated. Stress test last year showed fixed defects but with this significant bump in troponin as well as chest pain syndrome, further ischemic workup is likely needed. He is currently pain free. Continue rosuvastatin, metoprolol tartrate 50 mg p.o. b.i.d., lisinopril, aspirin and clopidogrel. 2D echocardiogram Doppler were ordered and reviewed. Will allow him to eat a light breakfast for possible angiogram tomorrow afternoon depending on symptoms. Will obviously need to clarify previous grafts and review old records through Dr. Mccabe's office notes. 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 Heparin drip continues. 10/26: Cardiac catheterization unable to be accomplished, patient will be medically optimized for the care per Cardiology 10/27: No chest pain 10/28: No chest pain. Cards switched IV lasix back to PO. Will need to add a SGLT2-inhibitor prior to discharge. Telemetry ordered. 10/29: Jardiance was started by Cards and he needs to follow up with them as an outpatient. 10/30: Cardiology has signed off. (3) CHF (congestive heart failure): Qualifiers: Heart failure chronicity: acute on chronic Heart failure type: systolic Qualified Code(s): I50.23 - Acute on chronic systolic (congestive) heart failure Code(s): I50.9 - Heart failure, unspecified Status: Acute Assessment and Plan: Continue lisinopril, metoprolol, spironolactone. If able, add Jardiance or Farxiga. Will continue diuresis with furosemide but will reduce to 40 mg IV daily. KCL 40 mg p.o. x1. His CHF is related to ischemic cardiomyopathy and heart failure with reduced ejection fraction -Echo pending, above is from Cardiology note. No shortness of breath at time of my evaluation. 10/26: Echocardiogram shows EF of 30-35% with pulmonary artery hypertension.
[2023-11-01 08:00] VITALS: BP 125/55; PULSE 71; RESP 16; TEMP 36.6; O2SAT 99
[2023-11-01] MEDS: ASPIRIN 81 MG CHEWABLE TABLET PO (10:03)
[2023-11-01] MEDS: EMPAGLIFLOZIN 10 MG TABLET PO (10:04)
[2023-11-01] MEDS: ATORVASTATIN 40 MG TABLET 80 MG PO (10:04)
[2023-11-01] MEDS: PHENYTOIN SODIUM 100 MG EXTENDED RELEASE CAP PO (10:04)
[2023-11-01] MEDS: CLOPIDOGREL BISULFATE 75 MG TABLET PO (10:04)
[2023-11-01] MEDS: SPIRONOLACTONE 25 MG TABLET PO (10:05)
--- NOTE | 2023-11-01 10:05 | PCSTNOTE ---
Please refer to the Modified Barium Swallow Evaluation in the EMR.
[2023-11-01 10:06] VITALS: PULSE 82
[2023-11-01] MEDS: METOPROLOL TARTRATE 50 MG TAB PO ×2 (10:06→21:02)
[2023-11-01] MEDS: FUROSEMIDE 40 MG TABLET PO (10:06)
[2023-11-01] MEDS: SACUBITRIL/VALSARTAN 24-26 MG TABLET 1 TAB PO ×2 (10:06→21:04)
[2023-11-01] MEDS: GABAPENTIN 300 MG CAPSULE 600 MG PO ×3 (10:08→17:25)
[2023-11-01] MEDS: ENOXAPARIN 40 MG/0.4 ML SYRINGE SUB-Q (11:43)
[2023-11-01] MEDS: PANTOPRAZOLE SODIUM IV 40 MG VIAL IV PUSH ×2 (11:43→21:04)
[2023-11-01 12:18] LABS: Glucose Point of Care 190 mg/dl (65-105)
[2023-11-01 17:21] LABS: Glucose Point of Care 194 mg/dl (65-105)
[2023-11-01 19:47] VITALS: BP 143/51; PULSE 77; RESP 18; TEMP 36.8; O2SAT 95
[2023-11-01 20:22] LABS: Glucose Point of Care 238 mg/dl (65-105)
[2023-11-01] MEDS: INSULIN GLARGINE (*BKC) 100 UNITS/ML 13 UNITS SUB-Q (21:01)
[2023-11-01 21:02] VITALS: PULSE 70
[2023-11-02 05:27] LABS: Basophils Percent Auto 0.3 % (0.2-1.2); Eosinophils Absolute Auto 0.3 K/mm3 (0-0.3); Eosinophils Percent Auto 2.8 % (0-4.4); Hematocrit 41.7 % (42.0-52.0); Hemoglobin 13.5 g/dL (14.0-18.0); Immature Granulocyte Absolute 0.04 K/mm3 (0.00-0.031); Immature Granulocyte Percent A 0.3 % (0-0.5); Lymphocytes Absolute Auto 2.48 K/mm3 (0.9-3.2); Lymphocytes Percent Auto 21.1 % (18.3-44.2); Mean Corpuscular HGB Conc 32.4 g/dl (32-36); Mean Corpuscular Hemoglobin 30.3 pg (26-34); Mean Corpuscular Volume 93.7 fl (80-100); Mean Platelet Volume 11.5 fl (7.4-10.4); Monocytes Percent Auto 8.6 % (2.6-8.5); Neutrophils Absolute Auto 7.9 K/mm3 (1.3-6.7); Neutrophils Percent Auto 66.9 % (45.5-73.1); Platelet Count Result 271 k/mm3 (150-375); Red Blood Count 4.45 M/mm3 (4.6-6.20); Red Cell Distribution Width 13.9 % (11.5-14.5); White Blood Count 11.8 K/mm3 (4.5-10.0)
[2023-11-02 05:39] LABS: Alanine Aminotransferase 34 U/L (6-50); Alkaline Phosphatase 178 U/L (38-126); Anion Gap 2 mmol/L (8-16); Aspartate Amino Transferase 29 U/L (17-59); Bilirubin,Total 0.4 mg/dL (0.2-1.3); Blood Urea Nitrogen 23 mg/dL (9-20); Calcium 8.3 mg/dL (8.4-10.2); Carbon Dioxide 30 mmol/L (22-30); Chloride 101 mmol/L (98-107); Estimated CRCL calculation 60 ml/min; Estimated Glomerular Filt Rate 56; Glucose 193 mg/dL (65-110); Magnesium 2.2 mg/dL (1.6-2.3); Sodium 133 mmol/L (137-145)
[2023-11-02 08:00] VITALS: BP 112/53; PULSE 62; RESP 14; TEMP 36.4; O2SAT 95
[2023-11-02 08:00] LABS: Glucose Point of Care 162 mg/dl (65-105)
[2023-11-02] MEDS: ATORVASTATIN 40 MG TABLET 80 MG PO (08:15)
[2023-11-02] MEDS: PHENYTOIN SODIUM 100 MG EXTENDED RELEASE CAP PO (08:15)
[2023-11-02] MEDS: EMPAGLIFLOZIN 10 MG TABLET PO (08:15)
[2023-11-02] MEDS: ASPIRIN 81 MG CHEWABLE TABLET PO (08:15)
[2023-11-02] MEDS: SACUBITRIL/VALSARTAN 24-26 MG TABLET 1 TAB PO ×2 (08:15→20:34)
[2023-11-02] MEDS: CLOPIDOGREL BISULFATE 75 MG TABLET PO (08:16)
[2023-11-02] MEDS: SPIRONOLACTONE 25 MG TABLET PO (08:16)
[2023-11-02] MEDS: ENOXAPARIN 40 MG/0.4 ML SYRINGE SUB-Q (08:16)
[2023-11-02] MEDS: GABAPENTIN 300 MG CAPSULE 600 MG PO ×2 (08:16→17:23)
[2023-11-02] MEDS: INSULIN ASPART (*BKC) 100 UNITS/ML SUB-Q ×3 (08:16→17:25)
[2023-11-02] MEDS: FUROSEMIDE 40 MG TABLET PO (08:16)
[2023-11-02] MEDS: PANTOPRAZOLE SODIUM IV 40 MG VIAL IV PUSH ×2 (08:17→20:37)
[2023-11-02] MEDS: METOPROLOL TARTRATE 50 MG TAB PO ×2 (08:17→20:34)
--- NOTE | 2023-11-02 08:23 | PM.IMPN ---
Progress Note: A&P Assessment and Plan (1) Acute CVA (cerebrovascular accident): Code(s): I63.9 - Cerebral infarction, unspecified Status: Acute Assessment and Plan: 10/27: Concern for acute stroke in this patient. CT Brain no acute bleed, several old strokes noted. Brain MRI, Gage/Neck MRA is pending. MBS ordered, patient NPO except sips/meds at this time. Bedside swallow completed by this provider at 1200 with 3 ounces of water without straw, no choking or drainage from mouth but there was slight delayed swallow. Aspirin 324 ordered, Plavix 75 ordered, NO TPA/TNK due to onset symptoms yesterday that were initially thought to be sedation caused by medication with attempted cardiac catheterization. Ordered echo bubble study and Neurology consult. 10/28: NG tube placed. Advanced 4 cm per radiology recommendation. Repeat KUB ordered. Dietitian gave tube feeding recs for Glucerna at 75 ml per hour with 100 ml free water flush. Strict NPO. Patient will continue speech therapy and repeat barium swallow in a few days. Neurology to medically manage. ECHO completed. 10/29: Left arm weakness slowly improving. 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 Continue to work with speech therapy. Therapist cleared him for ice chips when up to the chair. 10/30: Persistent left-sided weakness and facial droop. He is working with PT/OT/ST. 10/31: Passed repeat modified barium swallow with speech therapy today. Per speech recommendations he can have pureed diet, level 4 and moderately thick liquids, level 3. He needs one-to-one supervision for all feeding. Reviewed recs from Dr. Zheng's note. Change statin to atorvastatin 80 mg daily. MRI brain was ordered. Patient already on aspirin and Plavix. 11/01: Brain MRI completed. Awaiting official read. (2) Leukocytosis: Code(s): D72.829 - Elevated white blood cell count, unspecified Status: Acute Assessment and Plan: Up trending WBC. 10.4-->10.5-->11.8 -initially thought to be from atelectasis and incentive spirometer was ordered -patient recently had an NG tube with continuous tube feeds running. He removed his NG tube multiple times during tube feeding. Recent stroke with poor swallow. Concerns for aspiration pneumonia vs pneumonitis. -started on rocehpin and flagyl -will repeat chest xray today -blood cultures and sputum ordered. -also had a gonzalez for a few days. Will check u/a. 11/01: Patient denies SOB, productive cough, fever, chills, abdominal pain, or dysuria. He does have a weak cough on assessment. (3) NSTEMI (non-ST elevated myocardial infarction): Code(s): I21.4 - Non-ST elevation (NSTEMI) myocardial infarction Status: Acute Assessment and Plan: Carry forward from Cardiology Note: Patient has an ACS consistent with a non ST elevation myocardial infarction. Continue heparin drip. Continue nitroglycerin paste 1 in q.6 hours. His blood pressure is also markedly elevated. Stress test last year showed fixed defects but with this significant bump in troponin as well as chest pain syndrome, further ischemic workup is likely needed. He is currently pain free. Continue rosuvastatin, metoprolol tartrate 50 mg p.o. b.i.d., lisinopril, aspirin and clopidogrel. 2D echocardiogram Doppler were ordered and reviewed. Will allow him to eat a light breakfast for possible angiogram tomorrow afternoon depending on symptoms. Will obviously need to clarify previous grafts and review old records through Dr. Mccabe's office notes. 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 Heparin drip continues. 10/26: Cardiac catheterization unable to be accomplished, patient will be medically optimized for the care per Cardiology 10/27: No chest pain 10/28: No chest pain. Cards switched IV lasix back to PO. Will need to add a SGLT2-inhibitor prior to discharge. Telemetry ordered. 10/29: Jardiance was started by Cards and he needs to follow up with them as an outpatie
[2023-11-02] MEDS: metroNIDAZOLE 500 MG/ISO 100ML 500 MG/100 ML BAG 100 MG IVPB ×2 (08:49→17:22)
--- NOTE | 2023-11-02 11:44 | PC.NURSE ---
pt yelling at staff demanding ice. pt educated that he can not have ice due to aspiration and is on thickened liquids and a puree diet and is on swallowing precautions. pt started throwing items out the door and at staff. pt educated again by charge nurse. pt refusing to acknowledge staff and continues to throw items and yell for ice. thicken liquids provided.
[2023-11-02] MEDS: ACETAMINOPHEN ELIXIR 325 MG/10.15 ML UDC 650 MG PO (15:12)
[2023-11-02 15:37] LABS: Appearance Urine Clear (Clear); Bacteria Urine None Seen /hpf; Bilirubin Urine Negative (Negative); Color Urine Yellow (Yellow); Glucose Urine UA 3+ mg/dL (Negative); Ketones Urine Negative (Negative); Leukocyte Esterase Ur Negative LEU/UL (NEGATIVE); Nitrate Urine Negative (Negative); Non Pathogenic Casts 0-2; Protein Urine 3+ mg/dL (Negative); Squamous Epithelial Cell Urine None seen /hpf (Few); WBC Urine 0-5 /hpf (0-3)
[2023-11-02 15:40] LABS: Add Urine Microscopic? YES
[2023-11-02 17:38] LABS: Glucose Point of Care 203 mg/dl (65-105)
[2023-11-02 20:00] VITALS: PULSE 78; RESP 18; O2SAT 99
[2023-11-02 20:34] VITALS: PULSE 78
[2023-11-02 20:44] VITALS: BP 112/65; PULSE 78; RESP 18; TEMP 36.3; O2SAT 99
[2023-11-02 21:19] LABS: Glucose Point of Care 325 mg/dl (65-105)
[2023-11-02] MEDS: INSULIN GLARGINE (*BKC) 100 UNITS/ML 13 UNITS SUB-Q (21:24)
[2023-11-02] MEDS: LORazepam INJ (*CRX) 2 MG/ML VIAL 1 MG IV PUSH (23:43)
[2023-11-02] MEDS: HALOPERIDOL LACTATE 5 MG/ML VIAL IM (23:43)
[2023-11-03] MEDS: metroNIDAZOLE 500 MG/ISO 100ML 500 MG/100 ML BAG 100 MG IVPB ×3 (01:55→16:21)
[2023-11-03 05:24] LABS: Basophils Percent Auto 0.5 % (0.2-1.2); Eosinophils Absolute Auto 0.4 K/mm3 (0-0.3); Eosinophils Percent Auto 4.4 % (0-4.4); Hematocrit 45.5 % (42.0-52.0); Hemoglobin 14.3 g/dL (14.0-18.0); Immature Granulocyte Absolute 0.01 K/mm3 (0.00-0.031); Immature Granulocyte Percent A 0.1 % (0-0.5); Lymphocytes Absolute Auto 3.06 K/mm3 (0.9-3.2); Lymphocytes Percent Auto 36.3 % (18.3-44.2); Mean Corpuscular HGB Conc 31.4 g/dl (32-36); Mean Corpuscular Hemoglobin 29.9 pg (26-34); Mean Corpuscular Volume 95.2 fl (80-100); Mean Platelet Volume 11.7 fl (7.4-10.4); Monocytes Absolute Auto 0.8 K/mm3 (0.1-0.6); Monocytes Percent Auto 9.7 % (2.6-8.5); Neutrophils Absolute Auto 4.1 K/mm3 (1.3-6.7); Platelet Count Result 294 k/mm3 (150-375); Red Blood Count 4.78 M/mm3 (4.6-6.20); Red Cell Distribution Width 13.5 % (11.5-14.5); White Blood Count 8.4 K/mm3 (4.5-10.0)
[2023-11-03 05:40] LABS: Alanine Aminotransferase 32 U/L (6-50); Albumin Level 3.2 g/dL (3.5-5.1); Alkaline Phosphatase 164 U/L (38-126); Anion Gap -1 mmol/L (8-16); Aspartate Amino Transferase 42 U/L (17-59); Bilirubin,Total 0.4 mg/dL (0.2-1.3); Blood Urea Nitrogen 29 mg/dL (9-20); Calcium 8.6 mg/dL (8.4-10.2); Carbon Dioxide 34 mmol/L (22-30); Chloride 102 mmol/L (98-107); Estimated CRCL calculation 61 ml/min; Estimated Glomerular Filt Rate 52; Glucose 179 mg/dL (65-110); Magnesium 2.4 mg/dL (1.6-2.3); Potassium 3.8 mmol/L (3.4-5.0); Sodium 135 mmol/L (137-145)
--- NOTE | 2023-11-03 07:45 | PM.IMPN ---
Progress Note: A&P Assessment and Plan (1) Acute CVA (cerebrovascular accident): Code(s): I63.9 - Cerebral infarction, unspecified Status: Acute Assessment and Plan: 10/27: Concern for acute stroke in this patient. CT Brain no acute bleed, several old strokes noted. Brain MRI, Gage/Neck MRA is pending. MBS ordered, patient NPO except sips/meds at this time. Bedside swallow completed by this provider at 1200 with 3 ounces of water without straw, no choking or drainage from mouth but there was slight delayed swallow. Aspirin 324 ordered, Plavix 75 ordered, NO TPA/TNK due to onset symptoms yesterday that were initially thought to be sedation caused by medication with attempted cardiac catheterization. Ordered echo bubble study and Neurology consult. 10/28: NG tube placed. Advanced 4 cm per radiology recommendation. Repeat KUB ordered. Dietitian gave tube feeding recs for Glucerna at 75 ml per hour with 100 ml free water flush. Strict NPO. Patient will continue speech therapy and repeat barium swallow in a few days. Neurology to medically manage. ECHO completed. 10/29: Left arm weakness slowly improving. 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 Continue to work with speech therapy. Therapist cleared him for ice chips when up to the chair. 10/30: Persistent left-sided weakness and facial droop. He is working with PT/OT/ST. 10/31: Passed repeat modified barium swallow with speech therapy today. Per speech recommendations he can have pureed diet, level 4 and moderately thick liquids, level 3. He needs one-to-one supervision for all feeding. Reviewed recs from Dr. Zheng's note. Change statin to atorvastatin 80 mg daily. MRI brain was ordered. Patient already on aspirin and Plavix. 11/01: Brain MRI completed. Awaiting official read. 11/02: MRI shows patchy acute infarcts involving the right frontal, parietal, temporal, and occipital lobes. Also shows old infarcts involving the left frontal, parietal, temporal, and occipital lobes and left basal ganglia. There is also changes showing chronic small-vessel ischemic disease and total occlusion of the right ICA. Patient on aspirin, Plavix, atorvastatin. Lethargic today after receiving the IV Ativan and IM Haldol. Will put p.r.n. low-dose Seroquel should he get agitated this evening. (2) Leukocytosis: Code(s): D72.829 - Elevated white blood cell count, unspecified Status: Acute Assessment and Plan: Up trending WBC. 10.4-->10.5-->11.8 -initially thought to be from atelectasis and incentive spirometer was ordered -patient recently had an NG tube with continuous tube feeds running. He removed his NG tube multiple times during tube feeding. Recent stroke with poor swallow. Concerns for aspiration pneumonia vs pneumonitis. -started on rocehpin and flagyl -will repeat chest xray today -blood cultures and sputum ordered. -also had a gonzalez for a few days. Will check u/a. 11/01: Patient denies SOB, productive cough, fever, chills, abdominal pain, or dysuria. He does have a weak cough on assessment. 11/02: Leukocytosis has resolved today. Can transition him to oral Augmentin. (3) NSTEMI (non-ST elevated myocardial infarction): Code(s): I21.4 - Non-ST elevation (NSTEMI) myocardial infarction Status: Acute Assessment and Plan: Carry forward from Cardiology Note: Patient has an ACS consistent with a non ST elevation myocardial infarction. Continue heparin drip. Continue nitroglycerin paste 1 in q.6 hours. His blood pressure is also markedly elevated. Stress test last year showed fixed defects but with this significant bump in troponin as well as chest pain syndrome, further ischemic workup is likely needed. He is currently pain free. Continue rosuvastatin, metoprolol tartrate 50 mg p.o. b.i.d., lisinopril, aspirin and clopidogrel. 2D echocardiogram Doppler were ordered and reviewed. Will allow him to eat a light breakfast for possible angiogram tomorrow afternoon depen
[2023-11-03] MEDS: GABAPENTIN 300 MG CAPSULE 600 MG PO ×3 (08:10→16:21)
[2023-11-03] MEDS: ASPIRIN 81 MG CHEWABLE TABLET PO (08:10)
[2023-11-03] MEDS: ATORVASTATIN 40 MG TABLET 80 MG PO (08:10)
[2023-11-03] MEDS: FUROSEMIDE 40 MG TABLET PO (08:11)
[2023-11-03] MEDS: SPIRONOLACTONE 25 MG TABLET PO (08:11)
[2023-11-03] MEDS: ENOXAPARIN 40 MG/0.4 ML SYRINGE SUB-Q (08:11)
[2023-11-03] MEDS: CLOPIDOGREL BISULFATE 75 MG TABLET PO (08:11)
[2023-11-03] MEDS: EMPAGLIFLOZIN 10 MG TABLET PO (08:11)
[2023-11-03] MEDS: PHENYTOIN SODIUM 100 MG EXTENDED RELEASE CAP PO (08:11)
[2023-11-03] MEDS: METOPROLOL TARTRATE 50 MG TAB PO ×2 (08:11→20:22)
[2023-11-03] MEDS: AMOXICILLIN/CLAVULANATE K 875-125 MG TAB 1 TABLET PO ×2 (08:12→20:24)
[2023-11-03] MEDS: SACUBITRIL/VALSARTAN 24-26 MG TABLET 1 TAB PO ×2 (08:12→20:24)
[2023-11-03] MEDS: PANTOPRAZOLE SODIUM IV 40 MG VIAL IV PUSH ×2 (08:12→20:25)
[2023-11-03] MEDS: INSULIN ASPART (*BKC) 100 UNITS/ML SUB-Q ×4 (08:13→17:18)
[2023-11-03 08:16] LABS: Glucose Point of Care 187 mg/dl (65-105)
[2023-11-03 08:49] VITALS: BP 132/64; PULSE 68; RESP 16; TEMP 36.2; O2SAT 97
[2023-11-03 08:54] VITALS: O2SAT 93
--- NOTE | 2023-11-03 11:03 | PCNFU ---
Nutrition Follow-Up Complete: Unintentional weight loss related to diet changes as evidenced by significant weight loss after reducing intake, greater than patient intended. Goal: PO intake 75% or greater Patient is meeting goal. No new goal. Pt current nutrition is Pureed, Level 4 with Moderately Thick liquids, Level 3. Last recorded weight is 85.5 kg, up from 84 kg on admit. Bowel Motility: +BM reported 11/01 Labs Reviewed:Glu 179, GFR 52, BUN 29, Cr 1.4,Alb 3.3 Meds Noted:NovoLog, Protonix, Jardiance, Lasix Skin: WNL Additional Notes: Patient had MBS on 10/31 recommending pureed diet, with moderately thick liquids, Level 3. Patient is to be one on one supervision. Nursing is aware. Patient does like to eat fast and was getting choked up at breakfast. Oral Intake has been 100% of meals with diet supplements of Glucerna shakes BId providing an additional 220 kcals and 10 gms protein. Agree with diet orders. Monitor intake, wt, labs. Follow up in 7 days.
[2023-11-03 11:59] LABS: Glucose Point of Care 198 mg/dl (65-105)
[2023-11-03 13:34] VITALS: BP 110/58; PULSE 73; RESP 17; TEMP 36.4; O2SAT 100
[2023-11-03] MEDS: MORPHINE SULFATE (*CRX) 15 MG TAB IR 30 MG PO (14:05)
[2023-11-03 16:54] LABS: Glucose Point of Care 224 mg/dl (65-105)
[2023-11-03 19:47] LABS: Glucose Point of Care 222 mg/dl (65-105)
[2023-11-03] MEDS: QUEtiapine FUMARATE 12.5 MG TABLET PO (20:21)
[2023-11-03 20:22] VITALS: PULSE 79
[2023-11-03 20:24] VITALS: BP 118/60; PULSE 79; RESP 18; TEMP 36.3; O2SAT 95
[2023-11-03] MEDS: INSULIN GLARGINE (*BKC) 100 UNITS/ML 13 UNITS SUB-Q (20:25)
[2023-11-04] MEDS: metroNIDAZOLE 500 MG/ISO 100ML 500 MG/100 ML BAG 100 MG IVPB ×2 (01:17→12:27)
[2023-11-04 04:44] VITALS: BP 137/50; PULSE 68; RESP 17; TEMP 36.7; O2SAT 96
[2023-11-04 05:32] LABS: Basophils Absolute Auto 0.1 K/mm3 (0.0-0.1); Basophils Percent Auto 0.6 % (0.2-1.2); Eosinophils Absolute Auto 0.3 K/mm3 (0-0.3); Eosinophils Percent Auto 3.7 % (0-4.4); Hematocrit 45.6 % (42.0-52.0); Hemoglobin 14.3 g/dL (14.0-18.0); Immature Granulocyte Absolute 0.02 K/mm3 (0.00-0.031); Immature Granulocyte Percent A 0.2 % (0-0.5); Lymphocytes Absolute Auto 2.75 K/mm3 (0.9-3.2); Mean Corpuscular HGB Conc 31.4 g/dl (32-36); Mean Corpuscular Hemoglobin 29.9 pg (26-34); Mean Corpuscular Volume 95.4 fl (80-100); Monocytes Absolute Auto 0.7 K/mm3 (0.1-0.6); Monocytes Percent Auto 8.2 % (2.6-8.5); Neutrophils Percent Auto 56.3 % (45.5-73.1); Platelet Count Result 282 k/mm3 (150-375); Red Blood Count 4.78 M/mm3 (4.6-6.20); Red Cell Distribution Width 13.5 % (11.5-14.5); White Blood Count 8.9 K/mm3 (4.5-10.0)
[2023-11-04 05:47] LABS: Alanine Aminotransferase 32 U/L (6-50); Albumin Level 3.4 g/dL (3.5-5.1); Alkaline Phosphatase 211 U/L (38-126); Anion Gap 5 mmol/L (8-16); Aspartate Amino Transferase 44 U/L (17-59); Bilirubin,Total 0.4 mg/dL (0.2-1.3); Blood Urea Nitrogen 32 mg/dL (9-20); Calcium 8.6 mg/dL (8.4-10.2); Carbon Dioxide 28 mmol/L (22-30); Chloride 100 mmol/L (98-107); Estimated CRCL calculation 61 ml/min; Estimated Glomerular Filt Rate 52; Glucose 150 mg/dL (65-110); Magnesium 2.4 mg/dL (1.6-2.3); Potassium 3.8 mmol/L (3.4-5.0); Sodium 133 mmol/L (137-145)
[2023-11-04 07:30] VITALS: BP 90/71; PULSE 76; RESP 16; TEMP 36.6; O2SAT 90
[2023-11-04 08:10] LABS: Glucose Point of Care 117 mg/dl (65-105)
[2023-11-04] MEDS: ASPIRIN 81 MG CHEWABLE TABLET PO (08:50)
[2023-11-04] MEDS: INSULIN ASPART (*BKC) 100 UNITS/ML SUB-Q ×3 (08:51→17:43)
--- NOTE | 2023-11-04 09:25 | PC.NURSE ---
pt hypotensive at this time. rn aware, will call provider regarding morning medications
[2023-11-04 09:50] VITALS: BP 116/68
--- NOTE | 2023-11-04 09:55 | PC.NURSE ---
per rn, spoke with provider and requested to hold morning medications to re-assess bp
--- NOTE | 2023-11-04 10:55 | PC.NURSE ---
per rn, vs now stable enough for morning medication per provider
[2023-11-04] MEDS: PHENYTOIN SODIUM 100 MG EXTENDED RELEASE CAP PO (11:23)
[2023-11-04 11:26] VITALS: PULSE 76
[2023-11-04] MEDS: METOPROLOL TARTRATE 50 MG TAB PO (11:26)
[2023-11-04] MEDS: FUROSEMIDE 40 MG TABLET PO (11:28)
[2023-11-04] MEDS: SPIRONOLACTONE 25 MG TABLET PO (11:30)
[2023-11-04] MEDS: CLOPIDOGREL BISULFATE 75 MG TABLET PO (11:31)
[2023-11-04] MEDS: MORPHINE SULFATE (*CRX) 15 MG TAB IR 30 MG PO (11:32)
[2023-11-04] MEDS: AMOXICILLIN/CLAVULANATE K 875-125 MG TAB 1 TABLET PO (11:34)
[2023-11-04] MEDS: SACUBITRIL/VALSARTAN 24-26 MG TABLET 1 TAB PO (11:35)
[2023-11-04] MEDS: EMPAGLIFLOZIN 10 MG TABLET PO (11:37)
[2023-11-04] MEDS: ATORVASTATIN 40 MG TABLET 80 MG PO (11:38)
[2023-11-04] MEDS: PANTOPRAZOLE SODIUM IV 40 MG VIAL IV PUSH (11:40)
[2023-11-04] MEDS: ENOXAPARIN 40 MG/0.4 ML SYRINGE SUB-Q (11:40)
[2023-11-04] MEDS: GABAPENTIN 300 MG CAPSULE 600 MG PO ×2 (12:29→17:41)
[2023-11-04 12:45] LABS: Glucose Point of Care 199 mg/dl (65-105)
--- NOTE | 2023-11-04 14:30 | PM.DS ---
DS: Admitting Diagnosis Discharge Date 11/04/23 Admitting Diagnosis Chest pain DS: Discharge Diagnosis Discharge Diagnosis (1) Acute CVA (cerebrovascular accident): Code(s): I63.9 - Cerebral infarction, unspecified Status: Acute Assessment and Plan: 10/27: Concern for acute stroke in this patient. CT Brain no acute bleed, several old strokes noted. Brain MRI, Gage/Neck MRA is pending. MBS ordered, patient NPO except sips/meds at this time. Bedside swallow completed by this provider at 1200 with 3 ounces of water without straw, no choking or drainage from mouth but there was slight delayed swallow. Aspirin 324 ordered, Plavix 75 ordered, NO TPA/TNK due to onset symptoms yesterday that were initially thought to be sedation caused by medication with attempted cardiac catheterization. Ordered echo bubble study and Neurology consult. 10/28: NG tube placed. Advanced 4 cm per radiology recommendation. Repeat KUB ordered. Dietitian gave tube feeding recs for Glucerna at 75 ml per hour with 100 ml free water flush. Strict NPO. Patient will continue speech therapy and repeat barium swallow in a few days. Neurology to medically manage. ECHO completed. 10/29: Left arm weakness slowly improving. Still has a poor oven baker. Continue to work with speech therapy. Therapist cleared him for ice chips when up to the chair. 10/30: Persistent left-sided weakness and facial droop. He is working with PT/OT/ST. 10/31: Passed repeat modified barium swallow with speech therapy today. Per speech recommendations he can have pureed diet, level 4 and moderately thick liquids, level 3. He needs one-to-one supervision for all feeding. Reviewed recs from Dr. Zheng's note. Change statin to atorvastatin 80 mg daily. MRI brain was ordered. Patient already on aspirin and Plavix. 11/01: Brain MRI completed. Awaiting official read. 11/02: MRI shows patchy acute infarcts involving the right frontal, parietal, temporal, and occipital lobes. Also shows old infarcts involving the left frontal, parietal, temporal, and occipital lobes and left basal ganglia. There is also changes showing chronic small-vessel ischemic disease and total occlusion of the right ICA. Patient on aspirin, Plavix, atorvastatin. Lethargic today after receiving the IV Ativan and IM Haldol. Will put p.r.n. low-dose Seroquel should he get agitated this evening. (2) Leukocytosis: Code(s): D72.829 - Elevated white blood cell count, unspecified Status: Acute Assessment and Plan: Up trending WBC. 10.4-->10.5-->11.8 -initially thought to be from atelectasis and incentive spirometer was ordered -patient recently had an NG tube with continuous tube feeds running. He removed his NG tube multiple times during tube feeding. Recent stroke with poor swallow. Concerns for aspiration pneumonia vs pneumonitis. -started on rocehpin and flagyl -will repeat chest xray today -blood cultures and sputum ordered. -also had a gonzalez for a few days. Will check u/a. 11/01: Patient denies SOB, productive cough, fever, chills, abdominal pain, or dysuria. He does have a weak cough on assessment. 11/02: Leukocytosis has resolved today. Can transition him to oral Augmentin. (3) NSTEMI (non-ST elevated myocardial infarction): Code(s): I21.4 - Non-ST elevation (NSTEMI) myocardial infarction Status: Acute Assessment and Plan: Carry forward from Cardiology Note: Patient has an ACS consistent with a non ST elevation myocardial infarction. Continue heparin drip. Continue nitroglycerin paste 1 in q.6 hours. His blood pressure is also markedly elevated. Stress test last year showed fixed defects but with this significant bump in troponin as well as chest pain syndrome, further ischemic workup is likely needed. He is currently pain free. Continue rosuvastatin, metoprolol tartrate 50 mg p.o. b.i.d., lisinopril, aspirin and clopidogrel. 2D echocardiogram Doppler were ordered and reviewed
[2023-11-04 14:37] VITALS: BP 123/48; PULSE 55; RESP 18; TEMP 36.4; O2SAT 100
[2023-11-04 17:18] LABS: Glucose Point of Care 108 mg/dl (65-105)
[2023-11-04] MEDS: metroNIDAZOLE 500 MG TABLET PO (17:40)
== END 2023-11-04 18:45 | DRG 280 ==
LOC: ANHED 21:32 → ANHIMU 23:07 → ANH2MED 10-31 23:59
PROVIDERS: Emergency Medicine; Internal Medicine Cardiovascular Disease; Nurse Practitioner; Specialist; Student in an Organized Health Care Education/Training Program; Admitting Provider General Practice; Emergency Provider Emergency Medicine; PCP Family Medicine; Visit Provider Nurse Practitioner Acute Care
PROC: 4A023N7 Measurement of Cardiac Sampling and Pressure, Left Heart, Percutaneous Approach (ICD-10-PCS; CPT 93459; principal; 2023-10-27 14:30)
DX: I21.4 Non-ST elevation (NSTEMI) myocardial infarction (principal); I50.23 Acute on chronic systolic (congestive) heart failure; I63.9 Cerebral infarction, unspecified; J69.0 Pneumonitis due to inhalation of food and vomit; T84.218A Breakdown (mechanical) of internal fixation device of other bones, initial encounter; E87.1 Hypo-osmolality and hyponatremia; R29.709 NIHSS score 9; I11.0 Hypertensive heart disease with heart failure; R53.1 Weakness; R29.810 Facial weakness; N28.9 Disorder of kidney and ureter, unspecified; Y83.8 Other surgical procedures as the cause of abnormal reaction of the patient, or of later complication, without mention of misadventure at the time of the procedure; I25.10 Atherosclerotic heart disease of native coronary artery without angina pectoris; G40.909 Epilepsy, unspecified, not intractable, without status epilepticus; B18.2 Chronic viral hepatitis C; R29.6 Repeated falls; E11.59 Type 2 diabetes mellitus with other circulatory complications; I15.2 Hypertension secondary to endocrine disorders; E11.69 Type 2 diabetes mellitus with other specified complication; E78.5 Hyperlipidemia, unspecified; I25.5 Ischemic cardiomyopathy; I65.21 Occlusion and stenosis of right carotid artery; E11.42 Type 2 diabetes mellitus with diabetic polyneuropathy; E11.51 Type 2 diabetes mellitus with diabetic peripheral angiopathy without gangrene; E55.9 Vitamin D deficiency, unspecified; F41.9 Anxiety disorder, unspecified; F32.A Depression, unspecified; F12.90 Cannabis use, unspecified, uncomplicated; Z95.1 Presence of aortocoronary bypass graft; Z89.612 Acquired absence of left leg above knee; Z87.891 Personal history of nicotine dependence; Z79.02 Long term (current) use of antithrombotics/antiplatelets; Z79.82 Long term (current) use of aspirin; Z79.4 Long term (current) use of insulin; Z53.8 Procedure and treatment not carried out for other reasons; Z95.4 Presence of other heart-valve replacement
CPT/HCPCS: 36415; 70450; 70496; 70498; 70551; 71045; 71046; 71275; 74177; 80053; 80061; 81001; 82465; 82948; 83036; 83605; 83735; 83880; 84145; 84484; 85025; 85610; 85730; 87040; 87147; 87637; 92526; 92611; 93005; 93308; 93459; 96374; 96375; 96376; 97110; 97161; 97166; 97530; 97535; 99291; A9270; C1894; C8929; C9113; G0378; J0696; J1170; J1200; J1630; J1644; J1650; J1815; J1836; J1940; J2060; J2250; J2305; J3010; J7030; J7040; Q9957; Q9967

== ENCOUNTER 2023-11-10 09:22 | Inpatient (IN) | payer MEDICARE, SELFPAY ==
[2023-11-10] VITALS (12 sets, daily range): BP systolic 121–163; BP diastolic 62–76; PULSE 66–97; RESP 14–22; TEMP 35.8–36.4; O2SAT 98–100; BMI 22.9; BMI 22.6
--- NOTE | ~2023-11-10 | XR_ITS ---
EXAMINATION: XR chest 1V DATE: 11/10/2023 10:15 INDICATION: Altered mental status TECHNIQUE: frontal view of the chest was obtained. COMPARISON: Chest radiograph dated 11/02/2023 FINDINGS: The lungs are clear with no focal airspace opacities, pulmonary edema, pleural effusion or pneumothor ax. Heart size is normal. Numerous fractured median sternotomy wires and mediastinal surgical clips a re seen, likely from prior coronary artery bypass grafting. Additional wire fragment projects over th e left pectoral region. IMPRESSION: 1. No acute cardiopulmonary disease. Reviewed, dictated and finalized at location A.
--- NOTE | ~2023-11-10 | CT_ITS ---
EXAMINATION: CT brain wo con DATE: 11/17/2023 08:23 INDICATION: Status post fall. Trauma to the head. TECHNIQUE: Computed tomography (CT) of the head was performed without intravenous contrast. The dose- length product was 1362.00 mGy-cm. Automated exposure control and iterative reconstruction technique were employed. COMPARISON: CT dated 11/10/2023 FINDINGS: Chronic right parietal lobe infarction involving the periventricular white matter. Study li mited by motion artifact. Chronic left posterior parietal, temporal and occipital lobe infarctions. T here are scattered mild periventricular and subcortical white matter changes, most likely related to small vessel ischemic disease (microangiopathy). No acute hemorrhage, infarction or mass, although st udy is limited. Paranasal sinuses and mastoids are pneumatized. No depressed skull fractures. IMPRESSION: 1. No acute intracranial abnormality. No significant interval change. Reviewed, dictated and finalized at location B.
--- NOTE | ~2023-11-10 | CT_ITS ---
EXAMINATION: CT brain wo con DATE: 11/10/2023 10:14 INDICATION: New alteration of mental status. Recent cerebrovascular accident. TECHNIQUE: Computed tomography (CT) of the head was performed without intravenous contrast. The mA wa s adjusted according to patient size. Iterative reconstruction technique was employed. Exam dose: 75 6.67 mGy-cm total exam DLP. COMPARISON: 11/02/2023 MRI brain/brainstem 10/28/2023 CT brain and CTA brain carotid FINDINGS: Interval larger area of encephalomalacia in the right parietal centrum semiovale since 2023, consistent with recent cerebrovascular accident. Chronic old infarct in the posterior parietal lobe, posterior left temporal lobe, left parietal-occip ital area. There is nonspecific diminished attenuation cerebral white matter, likely due to chronic small vessel ischemic changes. Prominent bilateral carotid siphon internal carotid artery calcifications. There is moderate cerebral and cerebellar volume loss. No intracranial mass lesion, hemorrhage, midli ne shift or mass effect effect. No subdural or epidural hematoma is evident. IMPRESSION: Recent right parietal centrum semiovale infarct Chronic left parietal, posterior left temporal and left parietal occipital infarcts No intracranial mass lesion or hemorrhage, midline shift or mass effect is detected Reviewed, dictated and finalized at Location A. Reviewed, dictated and finalized at location B. IMPRESSION: Recent right parietal centrum semiovale infarct Chronic left parietal, posterior left temporal and left parietal occipital infa rcts No intracranial mass lesion or hemorrhage, midline shift or mass effect is dete cted
--- NOTE | 2023-11-10 09:29 | ECG_ITS ---
Measurements Intervals [place] Rate: 74 P: 63 NE: 176 QRS: 51 QRSD: 103 T: 94 QT: 393 QTc: 436 Interpretive Statements SINUS RHYTHM LEFT ATRIAL ENLARGEMENT BORDERLINE R WAVE PROGRESSION, ANTERIOR LEADS BORDERLINE ST-T WAVE ABNORMALITY- INF/LAT LEADS BORDERLINE ECG COMPARED TO ECG 10/25/2023 17:52:43 NO SIGNIFICANT CHANGES Electronically Signed On 11-10-2023 13:03:32 CDT by Dylan Baker D.O.
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
[2023-11-10 09:56] LABS: Basophils Absolute Auto 0.1 K/mm3 (0.0-0.1); Basophils Percent Auto 0.5 % (0.2-1.2); Eosinophils Absolute Auto 0.2 K/mm3 (0-0.3); Hematocrit 45.8 % (42.0-52.0); Hemoglobin 14.6 g/dL (14.0-18.0); Immature Granulocyte Absolute 0.03 K/mm3 (0.00-0.031); Immature Granulocyte Percent A 0.3 % (0-0.5); Lymphocytes Absolute Auto 2.61 K/mm3 (0.9-3.2); Lymphocytes Percent Auto 27.5 % (18.3-44.2); Mean Corpuscular HGB Conc 31.9 g/dl (32-36); Mean Corpuscular Hemoglobin 29.9 pg (26-34); Mean Corpuscular Volume 93.7 fl (80-100); Mean Platelet Volume 11.8 fl (7.4-10.4); Monocytes Absolute Auto 1.1 K/mm3 (0.1-0.6); Monocytes Percent Auto 11.6 % (2.6-8.5); Neutrophils Absolute Auto 5.5 K/mm3 (1.3-6.7); Neutrophils Percent Auto 58.1 % (45.5-73.1); Platelet Count Result 282 k/mm3 (150-375); Red Blood Count 4.89 M/mm3 (4.6-6.20); Red Cell Distribution Width 13.5 % (11.5-14.5); White Blood Count 9.5 K/mm3 (4.5-10.0)
[2023-11-10] MEDS: SODIUM CHLORIDE 0.9% IV 1,000 ML 999 ML IV CONT (10:00)
[2023-11-10 10:05] LABS: Alanine Aminotransferase 22 U/L (6-50); Albumin Level 3.7 g/dL (3.5-5.1); Alkaline Phosphatase 174 U/L (38-126); Anion Gap 6 mmol/L (8-16); Aspartate Amino Transferase 41 U/L (17-59); Bilirubin,Total 0.5 mg/dL (0.2-1.3); Blood Urea Nitrogen 28 mg/dL (9-20); Calcium 9.3 mg/dL (8.4-10.2); Carbon Dioxide 31 mmol/L (22-30); Chloride 98 mmol/L (98-107); Estimated CRCL calculation 53 ml/min; Estimated Glomerular Filt Rate 48; Glucose 144 mg/dL (65-110); Potassium 4.4 mmol/L (3.4-5.0); Sodium 135 mmol/L (137-145)
[2023-11-10 10:06] LABS: Lactic Acid Reflex 1.3 mmol/L (0.7-2.0)
[2023-11-10 10:07] LABS: Appearance Urine Clear (Clear); Bacteria Urine None Seen /hpf; Bilirubin Urine Negative (Negative); Blood Urine Negative (Negative); Color Urine Yellow (Yellow); Glucose Urine UA 3+ mg/dL (Negative); Ketones Urine Negative (Negative); Leukocyte Esterase Ur Negative LEU/UL (Negative); Nitrate Urine Negative (Negative); Non Pathogenic Casts 0-2; Protein Urine 3+ mg/dL (Negative); RBC Urine 0-2 /hpf (0-2); Specific Grav Ur 1.017 (1.001-1.035); Squamous Epithelial Cell Urine None Seen /hpf (Few); Urobilinogen Urine 0.2 mg/dL (<2.0); WBC Urine 0-5 /hpf (0-3); pH Urine 6.5 (5.0-9.0)
[2023-11-10 10:11] LABS: Add Urine Microscopic? YES
[2023-11-10 10:12] LABS: Partial Thromboplastin Time 32.9 Seconds (22.3-36.8); Prothrombin Time 13.8 Seconds (11.1-14.7)
[2023-11-10 10:22] LABS: Troponin I 0.039 ng/mL (0.000-0.034)
[2023-11-10 15:38] LABS: Troponin I 0.034 ng/mL (0.000-0.034)
--- NOTE | 2023-11-10 23:18 | ADMGEN ---
This patient, Calvin Flores, was admitted to [facility] Surg Room 325-02 at 2115. Patient/family oriented to hospital policies and general routines including ID bracelet, bed and alarms, visiting hours, pain management, procedures, bathroom and other care routines, personal items, smoking policy, room service/diet, and visiting hours. Information on how to activate the Rapid Response Team has been discussed. Patient/Family are encouraged to report perceived risks to care and to ask questions if they do not understand what they are told or what they should do.
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
[2023-11-11] MEDS: SODIUM CHLORIDE 0.9% IV 1,000 ML 100 ML IV CONT (02:04)
[2023-11-11 06:00] VITALS: BP 119/96; PULSE 104; RESP 21; TEMP 35.8; O2SAT 100
[2023-11-11 06:52] LABS: Anion Gap 12 mmol/L (8-16); Blood Urea Nitrogen 20 mg/dL (9-20); Calcium 9.6 mg/dL (8.4-10.2); Carbon Dioxide 20 mmol/L (22-30); Chloride 105 mmol/L (98-107); Estimated CRCL calculation 58 ml/min; Estimated Glomerular Filt Rate 56; Glucose 197 mg/dL (65-110); Potassium 4.6 mmol/L (3.4-5.0); Sodium 137 mmol/L (137-145)
[2023-11-11 07:53] LABS: Glucose Point of Care 186 mg/dl (65-105)
[2023-11-11 12:56] VITALS: BMI 22.6
[2023-11-11 14:00] VITALS: BP 117/62; PULSE 82; RESP 18; TEMP 36.1; O2SAT 93
--- NOTE | 2023-11-11 14:58 | PM.IMPN ---
Progress Note: A&P Assessment and Plan (1) Altered mental status: Code(s): R41.82 - Altered mental status, unspecified Status: Acute Assessment and Plan: The patient presented to the emergency department from [facility] for evaluation of altered mental status last several days. Etiology is not entirely clear but consider recurrent CVA. Brain CT showed a recent right parietal centrum semiovale infarct which was noted on brain MRI during recent hospitalization. He does look a bit dry on exam and by labs though not significantly so and this would not likely account for his change in mentation. There is no evidence at this time to suggest underlying infection. He will be hydrated overnight with close monitoring. Family not wanting any further intervention at this time. CC consulted for hospice. Hospice meeting planned for tonight. (2) Elevated troponin I level: Code(s): R79.89 - Other specified abnormal findings of blood chemistry Status: Acute Assessment and Plan: Trops remained flat and are now WNL. (3) Mild dehydration: Code(s): E86.0 - Dehydration Status: Acute Assessment and Plan: Continue IV fluids Discontinue if family signs with hospice. (4) Insulin dependent type 2 diabetes mellitus: Code(s): E11.9 - Type 2 diabetes mellitus without complications; Z79.4 - FPC (current) use of insulin Status: Acute Assessment and Plan: Insulin Lispro sliding scale, Accu-checks qAc and HS and Hold oral hypoglycemics Initiate hypoglycemic precautions (5) Recent cerebrovascular accident: Code(s): Z86.73 - Personal history of transient ischemic attack (TIA), and cerebral infarction without residual deficits Status: Acute Assessment and Plan: Patient recently admitted due to CVA. According to family his awareness is the same as it has been post CVA. Head CT unchanged from recent admission showing a right parietal centrum semiovale infarct. Continue medications of aspirin, Plavix, and atorvastatin Patient will not keep telemetry monitoring on due to his aggressive behavior. (6) Right carotid artery occlusion: Code(s): I65.21 - Occlusion and stenosis of right carotid artery Status: Chronic (7) Coronary artery disease: Code(s): I25.10 - Atherosclerotic heart disease of [place] coronary artery without angina pectoris Status: Chronic (8) Cardiomyopathy: Code(s): I42.9 - Cardiomyopathy, unspecified Status: Chronic Subjective Date/time seen: 11/11/23 14:58 Interval history: Patient admitted due to worsening behaviors and mental status changes. Admitted for possibility of hospice care. care coordination consulted for hospice and family plans to have a meeting with hospice company in the evening. Waiting to see what family decides to do. They are not wanting any interventions at this time. Exam Narrative: GENERAL: disheveled, irritable HENMT: moist mucous membranes EYES: EOM intact b/l NECK: no lymphadenopathy RESPIRATORY: clear to auscultation, no increased respiratory effort CARDIO: Regular rate and rhythm GI: soft, nontender, bowel sounds present SKIN/EXTREMITIES: no rashes, no edema, no redness or tenderness; Left leg amputation NEURO: A&O x0 Objective Data Vital Signs Vital Signs: Vital Signs - 24 hr 11/10/23 16:10 11/10/23 19:36 11/10/23 20:24 Temperature Pulse Rate 85 92 92 Respiratory Rate 22 H 22 H 16 Blood Pressure 160/76 H 158/73 H 121/65 Pulse Oximetry 99 100 100 Oxygen Delivery 11/10/23 23:20 11/10/23 21:45 11/11/23 06:00 Temperature 96.5 F L 96.5 F L Pulse Rate 97 104 H Respiratory Rate 20 21 H Blood Pressure 150/71 H 119/96 H Pulse Oximetry 99 100 Oxygen Delivery Room Air 11/11/23 08:00 11/11/23 14:00 Temperature 96.9 F L Pulse Rate 82 Respiratory Rate 18 Blood Pressure 117/6
[2023-11-11] MEDS: PANTOPRAZOLE 40 MG TABLET PO (17:03)
[2023-11-11] MEDS: GABAPENTIN 300 MG CAPSULE 600 MG PO (17:03)
--- NOTE | 2023-11-11 17:16 | PC.NURSE ---
patient combative throughout today, throwing anything he gets within reach. mother at bedside today, refused meds, patient finally slept for about an hour, so mom requested we not bother him. came to visit at 1600, so I was able to feed him his meds crused in pudding and he did pretty well with that, but seemed to be better with family at bedside.
[2023-11-11] MEDS: ACETAMINOPHEN 325 MG TABLET 650 MG PO (18:32)
[2023-11-11] MEDS: metroNIDAZOLE 250 MG TABLET 500 MG PO (21:00)
[2023-11-11] MEDS: SACUBITRIL/VALSARTAN 12-13 MG TABLET 1 TAB PO (21:01)
[2023-11-11] MEDS: METOPROLOL TARTRATE 50 MG TAB PO (21:01)
[2023-11-11 22:00] VITALS: BP 133/60; PULSE 86; RESP 20; TEMP 36.8; O2SAT 99
[2023-11-12] MEDS: metroNIDAZOLE 250 MG TABLET 500 MG PO (05:39)
[2023-11-12 06:00] VITALS: BP 171/73; PULSE 80; RESP 21; TEMP 36.4; O2SAT 100
--- NOTE | 2023-11-12 08:38 | PM.IMPN ---
Progress Note: A&P Assessment and Plan (1) Altered mental status: Code(s): R41.82 - Altered mental status, unspecified Status: Acute Assessment and Plan: The patient presented to the emergency department from [facility] for evaluation of altered mental status last several days. Etiology is not entirely clear but consider recurrent CVA. Brain CT showed a recent right parietal centrum semiovale infarct which was noted on brain MRI during recent hospitalization. He does look a bit dry on exam and by labs though not significantly so and this would not likely account for his change in mentation. There is no evidence at this time to suggest underlying infection. He will be hydrated overnight with close monitoring. Family not wanting any further intervention at this time. CC consulted for hospice. Hospice meeting with BRIANNA on 11/12 at noon at his family home. (2) Elevated troponin I level: Code(s): R79.89 - Other specified abnormal findings of blood chemistry Status: Acute Assessment and Plan: Trops remained flat and are now WNL. (3) Mild dehydration: Code(s): E86.0 - Dehydration Status: Acute Assessment and Plan: Continue IV fluids Discontinue if family signs with hospice. (4) Insulin dependent type 2 diabetes mellitus: Code(s): E11.9 - Type 2 diabetes mellitus without complications; Z79.4 - intermission coordinator (current) use of insulin Status: Acute Assessment and Plan: Insulin Lispro sliding scale, Accu-checks qAc and HS and Hold oral hypoglycemics Initiate hypoglycemic precautions 11/11: Patient is refusing accu checks. Family wants him comfortable. Will stop accu checks. Stopping insulin. Continue with jardiance if he will take it. (5) Recent cerebrovascular accident: Code(s): Z86.73 - Personal history of transient ischemic attack (TIA), and cerebral infarction without residual deficits Status: Acute Assessment and Plan: Patient recently admitted due to CVA. According to family his awareness is the same as it has been post CVA. Head CT unchanged from recent admission showing a right parietal centrum semiovale infarct. Continue medications of aspirin, Plavix, and atorvastatin Patient will not keep telemetry monitoring on due to his aggressive behavior. (6) Right carotid artery occlusion: Code(s): I65.21 - Occlusion and stenosis of right carotid artery Status: Chronic (7) Coronary artery disease: Code(s): I25.10 - Atherosclerotic heart disease of [place] coronary artery without angina pectoris Status: Chronic (8) Cardiomyopathy: Code(s): I42.9 - Cardiomyopathy, unspecified Status: Chronic Plan Comfort measures now Hospice meeting with BRIANNA 11/12 at noon Subjective Date/time seen: 11/12/23 08:38 Interval history: HPI obtained from the chart, This is a 58-year-old male with history of stroke, insulin dependent type 2 diabetes mellitus, coronary artery disease, peripheral vascular disease, right carotid artery occlusion, hypertension, and other comorbidities who presented to the emergency department via EMS from [facility] for evaluation of altered mental status. He is not able to provide an accurate history and a majority the following is obtained via a review of his EMR as well as information provided by his family members. He is in rehab following a recent hospitalization for acute CVA. He recently passed a swallow study in moved from a pureed diet to a level for and moderate thick liquid, level 3. He participated in therapy the 1st couple of days however the last several days he has been aggressive with staff requiring p.r.n. lorazepam and he has not been participating with therapy. He was sent in today given ongoing changes in his mentation. Family members have been considering palliative care. There have been no reports to my knowledge of
[2023-11-12] MEDS: FLUoxetine HCL 20 MG CAPSULE 80 MG PO (09:08)
[2023-11-12] MEDS: SACUBITRIL/VALSARTAN 12-13 MG TABLET 1 TAB PO (09:08)
[2023-11-12] MEDS: PHENYTOIN SODIUM 100 MG EXTENDED RELEASE CAP PO (09:08)
[2023-11-12] MEDS: PANTOPRAZOLE 40 MG TABLET PO ×2 (09:08→17:11)
[2023-11-12 09:09] VITALS: PULSE 96
[2023-11-12] MEDS: GABAPENTIN 300 MG CAPSULE 600 MG PO ×3 (09:09→17:11)
[2023-11-12] MEDS: METOPROLOL TARTRATE 50 MG TAB PO (09:09)
[2023-11-12] MEDS: ATORVASTATIN 40 MG TABLET 80 MG PO (09:09)
[2023-11-12] MEDS: CLOPIDOGREL BISULFATE 75 MG TABLET PO (09:11)
[2023-11-12] MEDS: EMPAGLIFLOZIN 10 MG TABLET PO (09:11)
[2023-11-12] MEDS: ASPIRIN 81 MG ENTERIC TABLET PO (09:11)
[2023-11-12] MEDS: ACETAMINOPHEN 325 MG TABLET 650 MG PO ×2 (09:11→17:11)
--- NOTE | 2023-11-12 09:43 | PC.NURSE ---
tried to call Gracie Olivera NP, regarding bullseye sepsis notifier, no answer, left vm to call back.
[2023-11-12 14:00] VITALS: BP 138/70; PULSE 67; RESP 16; TEMP 36.1; O2SAT 95
[2023-11-12 20:21] VITALS: PULSE 82
[2023-11-12 22:00] VITALS: BP 120/48; PULSE 82; RESP 16; TEMP 36.2; O2SAT 95
[2023-11-13 06:00] VITALS: BP 172/80; PULSE 94; RESP 21; TEMP 36.3; O2SAT 100
[2023-11-13 09:05] VITALS: O2SAT 90
[2023-11-13] MEDS: FLUoxetine HCL 20 MG CAPSULE 80 MG PO (09:45)
[2023-11-13 09:46] VITALS: PULSE 88
[2023-11-13] MEDS: ASPIRIN 81 MG ENTERIC TABLET PO (09:46)
[2023-11-13] MEDS: ATORVASTATIN 40 MG TABLET 80 MG PO (09:46)
[2023-11-13] MEDS: METOPROLOL TARTRATE 50 MG TAB PO ×2 (09:46→21:52)
[2023-11-13] MEDS: EMPAGLIFLOZIN 10 MG TABLET PO (09:46)
[2023-11-13] MEDS: GABAPENTIN 300 MG CAPSULE 600 MG PO ×2 (09:46→17:41)
[2023-11-13] MEDS: PANTOPRAZOLE 40 MG TABLET PO ×2 (09:47→17:41)
[2023-11-13] MEDS: CLOPIDOGREL BISULFATE 75 MG TABLET PO (09:47)
[2023-11-13] MEDS: PHENYTOIN SODIUM 100 MG EXTENDED RELEASE CAP PO (09:54)
[2023-11-13] MEDS: SACUBITRIL/VALSARTAN 12-13 MG TABLET 1 TAB PO ×2 (09:58→21:52)
--- NOTE | 2023-11-13 11:23 | PCNFU ---
Nutrition Follow-Up Complete: Inadequate energy intake related to appetite as evidenced by pt refusal of meals at this time Goal:PO intake Pt current nutrition is Pureed level 4, moderately thick liquids level 3, Glucerna BID. Nutrition recommendation: continue with current plan of care Last recorded weight is 75.6 kg. Bowel Motility: +BM 11/12 Labs Reviewed: No new labs Meds Noted: jardiance, novolog, lantus, zofran, protonix Skin: no skin issues noted Additional Notes: Pt continues on a pureed diet, intake poor. Family has a meeting with hospice care today for discharge. Monitor intake, wt, labs. Follow up in 3 days.
[2023-11-13 14:00] VITALS: BP 149/61; PULSE 69; RESP 18; TEMP 36.1; O2SAT 100
--- NOTE | 2023-11-13 15:49 | PM.IMPN ---
Progress Note: A&P Assessment and Plan (1) Altered mental status: Code(s): R41.82 - Altered mental status, unspecified Status: Acute Assessment and Plan: The patient presented to the emergency department from [facility] for evaluation of altered mental status last several days. Etiology is not entirely clear but consider recurrent CVA. Brain CT showed a recent right parietal centrum semiovale infarct which was noted on brain MRI during recent hospitalization. He does look a bit dry on exam and by labs though not significantly so and this would not likely account for his change in mentation. There is no evidence at this time to suggest underlying infection. He will be hydrated overnight with close monitoring. Family not wanting any further intervention at this time. CC consulted for hospice. Hospice meeting with BRIANNA on 11/12 at noon at his family home. (2) Elevated troponin I level: Code(s): R79.89 - Other specified abnormal findings of blood chemistry Status: Acute Assessment and Plan: Trops remained flat and are now WNL. (3) Mild dehydration: Code(s): E86.0 - Dehydration Status: Acute Assessment and Plan: Continue IV fluids Discontinue if family signs with hospice. 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 Family wants him comfortable. Will stop accu checks. Stopping insulin. Continue with jardiance if he will take it. (5) Recent cerebrovascular accident: Code(s): Z86.73 - Personal history of transient ischemic attack (TIA), and cerebral infarction without residual deficits Status: Acute Assessment and Plan: Patient recently admitted due to CVA. According to family his awareness is the same as it has been post CVA. Head CT unchanged from recent admission showing a right parietal centrum semiovale infarct. Continue medications of aspirin, Plavix, and atorvastatin Patient will not keep telemetry monitoring on due to his aggressive behavior. Plan Comfort measures now Hospice meeting with BRIANNA 11/12 and family is in agreement on plan of care. Waiting for discharge to a facility. Subjective Date/time seen: 11/13/23 15:49 Interval history: HPI obtained from the chart, This is a 58-year-old male with history of stroke, insulin dependent type 2 diabetes mellitus, coronary artery disease, peripheral vascular disease, right carotid artery occlusion, hypertension, and other comorbidities who presented to the emergency department via EMS from [facility] for evaluation of altered mental status. He is not able to provide an accurate history and a majority the following is obtained via a review of his EMR as well as information provided by his family members. He is in rehab following a recent hospitalization for acute CVA. He recently passed a swallow study in moved from a pureed diet to a level for and moderate thick liquid, level 3. He participated in therapy the 1st couple of days however the last several days he has been aggressive with staff requiring p.r.n. lorazepam and he has not been participating with therapy. He was sent in today given ongoing changes in his mentation. Family members have been considering palliative care. There have been no reports to my knowledge of fever, cold or flu symptoms, vomiting, or diarrhea. He was afebrile on arrival to the ED with stable vital signs. Labs were significant for sodium of 135, carbon dioxide 31, BUN 28, creatinine 1.50, troponin 0.039. Urine showed 3+ protein 3+ glucose but was otherwise unremarkable. A brain CT showed a recent right par
[2023-11-13 21:52] VITALS: PULSE 81
[2023-11-13] MEDS: rOPINIRole HCL 1 MG TABLET PO (21:55)
[2023-11-13 22:00] VITALS: BP 146/73; PULSE 77; RESP 16; TEMP 36.5; O2SAT 98
[2023-11-14 06:00] VITALS: BP 161/74; PULSE 78; RESP 18; TEMP 36.6; O2SAT 97
--- NOTE | 2023-11-14 07:43 | PM.IMPN ---
Progress Note: A&P Assessment and Plan (1) Altered mental status: Code(s): R41.82 - Altered mental status, unspecified Status: Acute Assessment and Plan: The patient presented to the emergency department from [facility] for evaluation of altered mental status last several days. Etiology is not entirely clear but consider recurrent CVA. Brain CT showed a recent right parietal centrum semiovale infarct which was noted on brain MRI during recent hospitalization. He does look a bit dry on exam and by labs though not significantly so and this would not likely account for his change in mentation. There is no evidence at this time to suggest underlying infection. He will be hydrated overnight with close monitoring. Family not wanting any further intervention at this time. CC consulted for hospice. Hospice meeting with BRIANNA on 11/12 at noon at his family home. 11/13: Family has agreed on hospice care at discharge. Awaiting placement (2) Elevated troponin I level: Code(s): R79.89 - Other specified abnormal findings of blood chemistry Status: Acute Assessment and Plan: Trops remained flat and are now WNL. (3) Mild dehydration: Code(s): E86.0 - Dehydration Status: Acute Assessment and Plan: Continue IV fluids Discontinue if family signs with hospice. (4) Insulin dependent type 2 diabetes mellitus: Code(s): E11.9 - Type 2 diabetes mellitus without complications; Z79.4 - meterman (current) use of insulin Status: Acute Assessment and Plan: Insulin Lispro sliding scale, Accu-checks qAc and HS and Hold oral hypoglycemics Initiate hypoglycemic precautions 11/11: Patient is refusing accu checks. Family wants him comfortable. Will stop accu checks. Stopping insulin. Continue with jardiance if he will take it. (5) Recent cerebrovascular accident: Code(s): Z86.73 - Personal history of transient ischemic attack (TIA), and cerebral infarction without residual deficits Status: Acute Assessment and Plan: Patient recently admitted due to CVA. According to family his awareness is the same as it has been post CVA. Head CT unchanged from recent admission showing a right parietal centrum semiovale infarct. Continue medications of aspirin, Plavix, and atorvastatin Patient will not keep telemetry monitoring on due to his aggressive behavior. Plan Comfort measures now Hospice meeting with BRIANNA 11/12 and family is in agreement on plan of care. Waiting for discharge to a facility. Subjective Date/time seen: 11/14/23 07:43 Interval history: HPI obtained from the chart, This is a 58-year-old male with history of stroke, insulin dependent type 2 diabetes mellitus, coronary artery disease, peripheral vascular disease, right carotid artery occlusion, hypertension, and other comorbidities who presented to the emergency department via EMS from [facility] for evaluation of altered mental status. He is not able to provide an accurate history and a majority the following is obtained via a review of his EMR as well as information provided by his family members. He is in rehab following a recent hospitalization for acute CVA. He recently passed a swallow study in moved from a pureed diet to a level for and moderate thick liquid, level 3. He participated in therapy the 1st couple of days however the last several days he has been aggressive with staff requiring p.r.n. lorazepam and he has not been participating with therapy. He was sent in today given ongoing changes in his mentation. Family members have been considering palliative care. There have been no reports to my knowledge of fever, cold or flu symptoms, vomiting, or diarrhea. He was afebrile on arrival to the ED with stable vital signs. Labs were significant for sodium of 135, carbon dioxide 31, BUN 28, creatinine 1.50, troponin 0.039. Urine showed 3+ protein 3+
[2023-11-14 08:00] VITALS: O2SAT 97
[2023-11-14 09:16] VITALS: PULSE 68
[2023-11-14] MEDS: ASPIRIN 81 MG CHEWABLE TABLET PO (09:16)
[2023-11-14] MEDS: CLOPIDOGREL BISULFATE 75 MG TABLET PO (09:16)
[2023-11-14] MEDS: FLUoxetine HCL 20 MG CAPSULE 80 MG PO (09:16)
[2023-11-14] MEDS: ATORVASTATIN 40 MG TABLET 80 MG PO (09:16)
[2023-11-14] MEDS: EMPAGLIFLOZIN 10 MG TABLET PO (09:16)
[2023-11-14] MEDS: GABAPENTIN 300 MG CAPSULE 600 MG PO ×3 (09:16→16:48)
[2023-11-14] MEDS: PANTOPRAZOLE 40 MG TABLET PO ×2 (09:16→16:48)
[2023-11-14] MEDS: METOPROLOL TARTRATE 50 MG TAB PO ×2 (09:16→20:28)
[2023-11-14] MEDS: SACUBITRIL/VALSARTAN 12-13 MG TABLET 1 TAB PO ×2 (09:22→20:29)
[2023-11-14 14:00] VITALS: BP 150/60; PULSE 91; RESP 16; TEMP 36.2; O2SAT 100
[2023-11-14 20:28] VITALS: PULSE 70
[2023-11-14] MEDS: rOPINIRole HCL 1 MG TABLET PO (20:28)
[2023-11-14 21:35] VITALS: BP 140/71; PULSE 67; RESP 16; TEMP 36.2; O2SAT 99
[2023-11-15] MEDS: diphenhydrAMINE HCl INJ 50 MG/ML VIAL IV PUSH ×2 (02:48→20:33)
[2023-11-15] MEDS: LORazepam INJ (*CRX) 2 MG/ML VIAL 1 MG IV PUSH ×2 (02:48→20:33)
[2023-11-15 05:58] VITALS: BP 153/71; PULSE 70; RESP 14; TEMP 36.4; O2SAT 92
--- NOTE | 2023-11-15 07:56 | P.PNIM_ITS ---
Progress Note: A&P Assessment and Plan (1) Altered mental status: Code(s): R41.82 - Altered mental status, unspecified Status: Acute Assessment and Plan: The patient presented to the emergency department from [facility] for evaluation of altered mental status last several days. * Etiology is not entirely clear but consider recurrent CVA. * Brain CT showed a recent right parietal centrum semiovale infarct which was noted on brain MRI during recent hospitalization. * He does look a bit dry on exam and by labs though not significantly so and this would not likely account for his change in mentation. * There is no evidence at this time to suggest underlying infection. He will be hydrated overnight with close monitoring. * Family not wanting any further intervention at this time. * CC consulted for hospice. * Hospice meeting with BRIANNA on 11/12 at noon at his family home. 11/13: Family has agreed on hospice care at discharge. Awaiting placement (2) Elevated troponin I level: Code(s): R79.89 - Other specified abnormal findings of blood chemistry Status: Acute Assessment and Plan: Trops remained flat and are now WNL. (3) Mild dehydration: Code(s): E86.0 - Dehydration Status: Acute Assessment and Plan: Continue IV fluids Discontinue if family signs with hospice. 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 Family wants him comfortable. Will stop accu checks. Stopping insulin. Continue with jardiance if he will take it. (5) Recent cerebrovascular accident: Code(s): Z86.73 - Personal history of transient ischemic attack (TIA), and cerebral infarction without residual deficits Status: Acute Assessment and Plan: Patient recently admitted due to CVA. * According to family his awareness is the same as it has been post CVA. * Head CT unchanged from recent admission showing a right parietal centrum semiovale infarct. * Continue medications of aspirin, Plavix, and atorvastatin * Patient will not keep telemetry monitoring on due to his aggressive behavior. Plan Comfort measures now Hospice meeting with BRIANNA 11/12 and family is in agreement on plan of care. Waiting for discharge to a facility. Subjective Date/time seen: 11/15/23 07:56 Interval history: HPI obtained from the chart, This is a 58-year-old male with history of stroke, insulin dependent type 2 diabetes mellitus, coronary artery disease, peripheral vascular disease, right carotid artery occlusion, hypertension, and other comorbidities who presented to the emergency department via EMS from [facility] for evaluation of altered mental status. He is not able to provide an accurate history and a majority the following is obtained via a review of his EMR as well as information provided by his family members. He is in rehab following a recent hospitalization for acute CVA. He recently passed a swallow study in moved from a pureed diet to a level for and moderate thick liquid, level 3. He participated in therapy the 1st couple of days however the last several days he has been aggressive with staff requiring p.r.n. lorazepam and he has not been participating with ther
[2023-11-15 08:12] VITALS: PULSE 83
[2023-11-15] MEDS: METOPROLOL TARTRATE 50 MG TAB PO ×2 (08:12→20:06)
[2023-11-15] MEDS: FLUoxetine HCL 20 MG CAPSULE 80 MG PO (08:12)
[2023-11-15] MEDS: ASPIRIN 81 MG CHEWABLE TABLET PO (08:12)
[2023-11-15] MEDS: CLOPIDOGREL BISULFATE 75 MG TABLET PO (08:12)
[2023-11-15] MEDS: ATORVASTATIN 40 MG TABLET 80 MG PO (08:12)
[2023-11-15] MEDS: PANTOPRAZOLE 40 MG TABLET PO ×2 (08:12→18:51)
[2023-11-15] MEDS: GABAPENTIN 300 MG CAPSULE 600 MG PO ×3 (08:12→18:51)
[2023-11-15] MEDS: EMPAGLIFLOZIN 10 MG TABLET PO (08:15)
[2023-11-15] MEDS: SACUBITRIL/VALSARTAN 12-13 MG TABLET 1 TAB PO ×2 (08:21→20:06)
[2023-11-15 12:37] LABS: Glucose Point of Care 323 mg/dl (65-105)
[2023-11-15] MEDS: INSULIN ASPART (*BKC) 100 UNITS/ML SUB-Q (13:10)
[2023-11-15 14:00] VITALS: BP 131/62; PULSE 58; RESP 18; TEMP 35.9; O2SAT 99
[2023-11-15 16:46] LABS: Glucose Point of Care 141 mg/dl (65-105)
--- NOTE | 2023-11-15 18:18 | PC.NURSE ---
On 11/15/23, the SOCK LINING EXAMINER, Rocio, provided care and completed [facility] documentation on this patient. I have reviewed the SOCK LINING EXAMINER's documentation and agree with the findings.
[2023-11-15 20:00] VITALS: O2SAT 98
[2023-11-15 20:05] VITALS: BP 142/58; PULSE 80; RESP 18; TEMP 36.6; O2SAT 98
[2023-11-15] MEDS: rOPINIRole HCL 1 MG TABLET PO (20:06)
[2023-11-15 21:10] LABS: Glucose Point of Care 249 mg/dl (65-105)
[2023-11-16 06:00] VITALS: BP 152/66; PULSE 79; RESP 18; TEMP 36.1; O2SAT 100
--- NOTE | 2023-11-16 07:35 | PM.IMPN ---
Progress Note: A&P Assessment and Plan (1) Altered mental status: Code(s): R41.82 - Altered mental status, unspecified Status: Acute Assessment and Plan: The patient presented to the emergency department from [facility] for evaluation of altered mental status last several days. Etiology is not entirely clear but consider recurrent CVA. Brain CT showed a recent right parietal centrum semiovale infarct which was noted on brain MRI during recent hospitalization. He does look a bit dry on exam and by labs though not significantly so and this would not likely account for his change in mentation. There is no evidence at this time to suggest underlying infection. He will be hydrated overnight with close monitoring. Family not wanting any further intervention at this time. CC consulted for hospice. Hospice meeting with BRIANNA on 11/12 at noon at his family home. 11/13: Family has agreed on hospice care at discharge. Awaiting placement (2) Elevated troponin I level: Code(s): R79.89 - Other specified abnormal findings of blood chemistry Status: Acute Assessment and Plan: Trops remained flat and are now WNL. (3) Mild dehydration: Code(s): E86.0 - Dehydration Status: Acute Assessment and Plan: Continue IV fluids Discontinue if family signs with hospice. 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 Family wants him comfortable. Will stop accu checks. Stopping insulin. Continue with jardiance if he will take it. (5) Recent cerebrovascular accident: Code(s): Z86.73 - Personal history of transient ischemic attack (TIA), and cerebral infarction without residual deficits Status: Acute Assessment and Plan: Patient recently admitted due to CVA. According to family his awareness is the same as it has been post CVA. Head CT unchanged from recent admission showing a right parietal centrum semiovale infarct. Continue medications of aspirin, Plavix, and atorvastatin Patient will not keep telemetry monitoring on due to his aggressive behavior. Plan Comfort measures now Hospice meeting with BRIANNA 11/12 and family is in agreement on plan of care. Waiting for discharge to a facility. Subjective Date/time seen: 11/16/23 07:35 Interval history: HPI obtained from the chart, This is a 58-year-old male with history of stroke, insulin dependent type 2 diabetes mellitus, coronary artery disease, peripheral vascular disease, right carotid artery occlusion, hypertension, and other comorbidities who presented to the emergency department via EMS from [facility] for evaluation of altered mental status. He is not able to provide an accurate history and a majority the following is obtained via a review of his EMR as well as information provided by his family members. He is in rehab following a recent hospitalization for acute CVA. He recently passed a swallow study in moved from a pureed diet to a level for and moderate thick liquid, level 3. He participated in therapy the 1st couple of days however the last several days he has been aggressive with staff requiring p.r.n. lorazepam and he has not been participating with therapy. He was sent in today given ongoing changes in his mentation. Family members have been considering palliative care. There have been no reports to my knowledge of fever, cold or flu symptoms, vomiting, or diarrhea. He was afebrile on arrival to the ED with stable vital signs. Labs were significant for sodium of 135, carbon dioxide 31, BUN 28, creatinine 1.50, troponin 0.039. Urine showed 3+ protein 3+
[2023-11-16 07:45] LABS: Glucose Point of Care 403 mg/dl (65-105)
[2023-11-16 08:00] VITALS: PULSE 71; O2SAT 95
[2023-11-16] MEDS: INSULIN ASPART (*BKC) 100 UNITS/ML 10 UNITS SUB-Q (08:16)
[2023-11-16] MEDS: EMPAGLIFLOZIN 10 MG TABLET PO (08:28)
[2023-11-16] MEDS: GABAPENTIN 300 MG CAPSULE 600 MG PO ×3 (08:28→16:16)
[2023-11-16] MEDS: FLUoxetine HCL 20 MG CAPSULE 80 MG PO (08:29)
[2023-11-16] MEDS: SACUBITRIL/VALSARTAN 12-13 MG TABLET 1 TAB PO ×2 (08:29→21:22)
[2023-11-16] MEDS: ATORVASTATIN 40 MG TABLET 80 MG PO (08:29)
[2023-11-16] MEDS: PANTOPRAZOLE 40 MG TABLET PO ×2 (08:30→16:16)
[2023-11-16 08:31] VITALS: PULSE 71
[2023-11-16] MEDS: ASPIRIN 81 MG CHEWABLE TABLET PO (08:31)
[2023-11-16] MEDS: METOPROLOL TARTRATE 50 MG TAB PO ×2 (08:31→21:22)
[2023-11-16] MEDS: CLOPIDOGREL BISULFATE 75 MG TABLET PO (08:32)
[2023-11-16 11:21] LABS: Glucose Point of Care 216 mg/dl (65-105)
[2023-11-16] MEDS: INSULIN ASPART (*BKC) 100 UNITS/ML SUB-Q (11:46)
[2023-11-16 14:00] VITALS: BP 137/60; PULSE 60; RESP 14; TEMP 36.1; O2SAT 99
[2023-11-16 16:34] LABS: Glucose Point of Care 144 mg/dl (65-105)
[2023-11-16] MEDS: ACETAMINOPHEN 325 MG TABLET 650 MG PO (16:59)
[2023-11-16 20:00] VITALS: O2SAT 98
[2023-11-16 20:37] VITALS: BP 142/56; PULSE 81; RESP 18; TEMP 36.1; O2SAT 98
[2023-11-16 20:37] LABS: Glucose Point of Care 202 mg/dl (65-105)
[2023-11-16] MEDS: rOPINIRole HCL 1 MG TABLET PO (21:22)
[2023-11-16] MEDS: INSULIN GLARGINE (*BKC) 100 UNITS/ML 11 UNITS SUB-Q (21:23)
[2023-11-17 07:27] LABS: Glucose Point of Care 219 mg/dl (65-105)
[2023-11-17 07:47] VITALS: BP 148/59; PULSE 53
[2023-11-17 09:54] VITALS: BP 148/59; PULSE 53
[2023-11-17] MEDS: GABAPENTIN 300 MG CAPSULE 600 MG PO ×3 (10:07→17:27)
[2023-11-17] MEDS: PANTOPRAZOLE 40 MG TABLET PO ×2 (10:08→17:26)
[2023-11-17] MEDS: FLUoxetine HCL 20 MG CAPSULE 80 MG PO (10:08)
[2023-11-17] MEDS: ASPIRIN 81 MG CHEWABLE TABLET PO (10:08)
[2023-11-17 10:09] VITALS: PULSE 85
[2023-11-17] MEDS: CLOPIDOGREL BISULFATE 75 MG TABLET PO (10:09)
[2023-11-17] MEDS: EMPAGLIFLOZIN 10 MG TABLET PO (10:09)
[2023-11-17] MEDS: METOPROLOL TARTRATE 50 MG TAB PO ×2 (10:09→20:18)
[2023-11-17] MEDS: ATORVASTATIN 40 MG TABLET 80 MG PO (10:10)
[2023-11-17] MEDS: SACUBITRIL/VALSARTAN 12-13 MG TABLET 1 TAB PO ×2 (10:11→20:18)
[2023-11-17] MEDS: INSULIN ASPART (*BKC) 100 UNITS/ML SUB-Q ×3 (10:16→17:28)
[2023-11-17 11:18] LABS: Glucose Point of Care 266 mg/dl (65-105)
--- NOTE | 2023-11-17 11:26 | PC.NURSE ---
At approximately 0740 this AM, patient's bed alarm went off. Primary RN and second RN Millie responded to alarm. The patient was found on the floor, laying on his back. logistics manager notified and came into room. Nursing staff assisted in getting vitals taken, and getting patient lifted back into bed. Primary RN notified provider, who ordered a stat head CT. Post fall intervention added to worklist and completed.
[2023-11-17] MEDS: LORazepam INJ (*CRX) 2 MG/ML VIAL IM (12:22)
--- NOTE | 2023-11-17 12:45 | PCNFU ---
Nutrition Follow-Up Complete: Inadequate energy intake related to appetite as evidenced by pt refusal of meals at this time Goal:PO intake Pt current nutrition is Pureed level 4, moderately thick liquids level 3, Glucerna shakes BID. Nutrition recommendation: continue with current plan of care Last recorded weight is 75.6 kg. Bowel Motility: +BM 11/14 Labs Reviewed: Glu: 219 Meds Noted: jardiance, novolog, lantus, zofran, protonix Skin: no skin issues noted Additional Notes: Pt continues on the same diet, intake varied. Pt is awaiting placement and discharge to hospice care. Comfort measures. Monitor intake, wt, labs. Follow up in 5 days.
[2023-11-17 14:00] VITALS: BP 128/63; PULSE 61; RESP 18; TEMP 36; O2SAT 100
--- NOTE | 2023-11-17 16:39 | PM.IMPN ---
Progress Note: A&P Assessment and Plan (1) Altered mental status: Code(s): R41.82 - Altered mental status, unspecified Status: Acute Assessment and Plan: The patient presented to the emergency department from [facility] for evaluation of altered mental status last several days. Etiology is not entirely clear but consider recurrent CVA. Brain CT showed a recent right parietal centrum semiovale infarct which was noted on brain MRI during recent hospitalization. He does look a bit dry on exam and by labs though not significantly so and this would not likely account for his change in mentation. There is no evidence at this time to suggest underlying infection. He will be hydrated overnight with close monitoring. Family not wanting any further intervention at this time. CC consulted for hospice. Hospice meeting with BRIANNA on 11/12 at noon at his family home. 11/13: Family has agreed on hospice care at discharge. Awaiting placement (2) Elevated troponin I level: Code(s): R79.89 - Other specified abnormal findings of blood chemistry Status: Acute Assessment and Plan: Trops remained flat and are now WNL. (3) Mild dehydration: Code(s): E86.0 - Dehydration Status: Acute Assessment and Plan: Continue IV fluids Discontinue if family signs with hospice. 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 Family wants him comfortable. Will stop accu checks. Stopping insulin. Continue with jardiance if he will take it. (5) Recent cerebrovascular accident: Code(s): Z86.73 - Personal history of transient ischemic attack (TIA), and cerebral infarction without residual deficits Status: Acute Assessment and Plan: Patient recently admitted due to CVA. According to family his awareness is the same as it has been post CVA. Head CT unchanged from recent admission showing a right parietal centrum semiovale infarct. Continue medications of aspirin, Plavix, and atorvastatin Patient will not keep telemetry monitoring on due to his aggressive behavior. Plan Comfort measures now Hospice meeting with BRIANNA 11/12 and family is in agreement on plan of care. Waiting for discharge to a facility. Multiple facilities have declined him due to Medicaid pending. A facility in [place] is considering him at this time. Added Ativan to help manage his anxiety and agitation. Subjective Date/time seen: 11/17/23 16:39 Interval history: HPI obtained from the chart, This is a 58-year-old male with history of stroke, insulin dependent type 2 diabetes mellitus, coronary artery disease, peripheral vascular disease, right carotid artery occlusion, hypertension, and other comorbidities who presented to the emergency department via EMS from [facility] for evaluation of altered mental status. He is not able to provide an accurate history and a majority the following is obtained via a review of his EMR as well as information provided by his family members. He is in rehab following a recent hospitalization for acute CVA. He recently passed a swallow study in moved from a pureed diet to a level for and moderate thick liquid, level 3. He participated in therapy the 1st couple of days however the last several days he has been aggressive with staff requiring p.r.n. lorazepam and he has not been participating with therapy. He was sent in today given ongoing changes in his mentation. Family members have been considering palliative care. There have been no reports to my knowledge of fever, cold or flu symptoms, vomiting, or diarrhea. He was afebrile
[2023-11-17 16:43] LABS: Glucose Point of Care 218 mg/dl (65-105)
[2023-11-17 16:47] LABS: Glucose Point of Care 229 mg/dl (65-105)
[2023-11-17 20:00] VITALS: O2SAT 99
[2023-11-17] MEDS: diphenhydrAMINE HCl INJ 50 MG/ML VIAL IV PUSH (20:10)
[2023-11-17] MEDS: rOPINIRole HCL 1 MG TABLET PO (20:18)
[2023-11-17] MEDS: LORazepam (*CRX) 1 MG TABLET PO (20:18)
[2023-11-17] MEDS: HALOPERIDOL LACTATE 5 MG/ML VIAL IM (20:19)
[2023-11-17 20:24] LABS: Glucose Point of Care 173 mg/dl (65-105)
[2023-11-17 20:43] VITALS: BP 125/69; PULSE 72; RESP 16; TEMP 36.1; O2SAT 99
[2023-11-17] MEDS: INSULIN GLARGINE (*BKC) 100 UNITS/ML 15 UNITS SUB-Q (22:50)
--- NOTE | 2023-11-18 02:35 | PC.NURSE ---
[address] Linares about patient being extremely anxious and combative with staff. New orders received for Benadryl 50 mg IVP x1 and haldol 5mg IM x1.
[2023-11-18 05:20] VITALS: BP 130/59; PULSE 61; RESP 16; TEMP 36.4; O2SAT 99
[2023-11-18 07:48] VITALS: PULSE 61; RESP 16; O2SAT 99
[2023-11-18 07:53] LABS: Glucose Point of Care 220 mg/dl (65-105)
--- NOTE | 2023-11-18 07:55 | PM.IMPN ---
Progress Note: A&P Assessment and Plan (1) Altered mental status: Code(s): R41.82 - Altered mental status, unspecified Status: Acute Assessment and Plan: The patient presented to the emergency department from [facility] for evaluation of altered mental status last several days. Etiology is not entirely clear but consider recurrent CVA. Brain CT showed a recent right parietal centrum semiovale infarct which was noted on brain MRI during recent hospitalization. He does look a bit dry on exam and by labs though not significantly so and this would not likely account for his change in mentation. There is no evidence at this time to suggest underlying infection. He will be hydrated overnight with close monitoring. Family not wanting any further intervention at this time. CC consulted for hospice. Hospice meeting with BRIANNA on 11/12 at noon at his family home. 11/13: Family has agreed on hospice care at discharge. Awaiting placement 11/17: Continue to wait for accepting facility for hospice at discharge. (2) Insulin dependent type 2 diabetes mellitus: Code(s): E11.9 - Type 2 diabetes mellitus without complications; Z79.4 - custodial (current) use of insulin Status: Acute Assessment and Plan: Insulin Lispro sliding scale, Accu-checks qAc and HS and Hold oral hypoglycemics Initiate hypoglycemic precautions 11/11: Patient is refusing accu checks. Family wants him comfortable. Will stop accu checks. Continue with jardiance if he will take it. 11/12: Hyperglycemia and thirsty. Random glucose was elevated in the 300's. Add back accu checks and insulin at high dose slide. 11/15: Add Lantus at 50% dose reduction 11/16: uptitrating lantus to home dose 11/17: Lispro 5 units TID with meals, high dose SSI, and Lantus 15 units at bedtime. Blood sugar today was 300. (3) Recent cerebrovascular accident: Code(s): Z86.73 - Personal history of transient ischemic attack (TIA), and cerebral infarction without residual deficits Status: Acute Assessment and Plan: Patient recently admitted due to CVA. According to family his awareness is the same as it has been post CVA. Head CT unchanged from recent admission showing a right parietal centrum semiovale infarct. Continue medications of aspirin, Plavix, and atorvastatin Patient will not keep telemetry monitoring on due to his aggressive behavior. Plan Comfort measures now Hospice meeting with BRIANNA 11/12 and family is in agreement on plan of care. Waiting for discharge to a facility. Multiple facilities have declined him due to Medicaid pending. A facility in [place] is considering him at this time. Added Ativan to help manage his anxiety and agitation. Subjective Date/time seen: 11/18/23 07:55 Interval history: HPI obtained from the chart, This is a 58-year-old male with history of stroke, insulin dependent type 2 diabetes mellitus, coronary artery disease, peripheral vascular disease, right carotid artery occlusion, hypertension, and other comorbidities who presented to the emergency department via EMS from [facility] for evaluation of altered mental status. He is not able to provide an accurate history and a majority the following is obtained via a review of his EMR as well as information provided by his family members. He is in rehab following a recent hospitalization for acute CVA. He recently passed a swallow study in moved from a pureed diet to a level for and moderate thick liquid, level 3. He participated in therapy the 1st couple of days however the last several days he has been aggressive with staff requiring p.r.n. lorazepam and he has not been participating with therapy. He was sent in today given ongoing changes in his mentation. Family members have been considering palliative care. There have been no reports to my knowledge of fever, cold or flu symptoms, vomiting, or diarrhea. He was afebrile on arrival t
[2023-11-18] MEDS: INSULIN ASPART (*BKC) 100 UNITS/ML SUB-Q ×3 (08:25→16:54)
[2023-11-18] MEDS: ASPIRIN 81 MG CHEWABLE TABLET PO (08:32)
[2023-11-18] MEDS: CLOPIDOGREL BISULFATE 75 MG TABLET PO (08:32)
[2023-11-18] MEDS: FLUoxetine HCL 20 MG CAPSULE 80 MG PO (08:32)
[2023-11-18] MEDS: GABAPENTIN 300 MG CAPSULE 600 MG PO ×3 (08:32→16:53)
[2023-11-18 08:33] VITALS: PULSE 80
[2023-11-18] MEDS: PANTOPRAZOLE 40 MG TABLET PO ×2 (08:33→16:54)
[2023-11-18] MEDS: ATORVASTATIN 40 MG TABLET 80 MG PO (08:33)
[2023-11-18] MEDS: EMPAGLIFLOZIN 10 MG TABLET PO (08:33)
[2023-11-18] MEDS: METOPROLOL TARTRATE 50 MG TAB PO ×2 (08:33→20:56)
[2023-11-18] MEDS: SACUBITRIL/VALSARTAN 12-13 MG TABLET 1 TAB PO ×2 (08:42→20:56)
[2023-11-18] MEDS: LORazepam (*CRX) 1 MG TABLET PO ×3 (08:54→20:56)
[2023-11-18 11:38] LABS: Glucose Point of Care 301 mg/dl (65-105)
[2023-11-18 14:00] VITALS: BP 113/69; PULSE 60; RESP 17; TEMP 36.1; O2SAT 100
[2023-11-18] MEDS: ACETAMINOPHEN 325 MG TABLET 650 MG PO (15:55)
[2023-11-18 16:22] LABS: Glucose Point of Care 185 mg/dl (65-105)
[2023-11-18 20:36] LABS: Glucose Point of Care 229 mg/dl (65-105)
[2023-11-18 20:56] VITALS: PULSE 70
[2023-11-18] MEDS: rOPINIRole HCL 1 MG TABLET PO (20:56)
[2023-11-18] MEDS: INSULIN GLARGINE (*BKC) 100 UNITS/ML 15 UNITS SUB-Q (20:57)
[2023-11-18 21:33] VITALS: BP 134/59; PULSE 67; RESP 19; TEMP 36.3; O2SAT 92
[2023-11-19] MEDS: LORazepam (*CRX) 1 MG TABLET PO ×3 (02:26→22:30)
[2023-11-19] MEDS: HALOPERIDOL LACTATE 5 MG/ML VIAL IM (04:30)
[2023-11-19 05:44] VITALS: BP 160/63; PULSE 64; RESP 15; TEMP 36.3; O2SAT 99
[2023-11-19 07:25] LABS: Glucose Point of Care 208 mg/dl (65-105)
[2023-11-19 08:00] VITALS: O2SAT 99
[2023-11-19] MEDS: ASPIRIN 81 MG CHEWABLE TABLET PO (08:40)
[2023-11-19] MEDS: ATORVASTATIN 40 MG TABLET 80 MG PO (08:40)
[2023-11-19] MEDS: GABAPENTIN 300 MG CAPSULE 600 MG PO ×3 (08:41→16:28)
[2023-11-19] MEDS: FLUoxetine HCL 20 MG CAPSULE 80 MG PO (08:41)
[2023-11-19] MEDS: EMPAGLIFLOZIN 10 MG TABLET PO (08:41)
[2023-11-19] MEDS: CLOPIDOGREL BISULFATE 75 MG TABLET PO (08:41)
[2023-11-19 08:42] VITALS: PULSE 80
[2023-11-19] MEDS: METOPROLOL TARTRATE 50 MG TAB PO ×2 (08:42→20:25)
[2023-11-19] MEDS: PANTOPRAZOLE 40 MG TABLET PO ×2 (08:42→16:28)
[2023-11-19] MEDS: SACUBITRIL/VALSARTAN 12-13 MG TABLET 1 TAB PO ×2 (08:52→20:26)
--- NOTE | 2023-11-19 10:14 | PCNFU ---
Nutrition Follow-Up Complete: Inadequate energy intake related to appetite as evidenced by pt refusal of meals at this time Goal:PO intake Pt current nutrition is Pureed level 4, moderately thick liquids level 3, Glucerna shakes BID. Nutrition recommendation: continue with current plan of care Last recorded weight is 75.6 kg. Bowel Motility: no recent BM recorded Labs Reviewed: Glu: 208 Meds Noted: jardiance, novolog, lantus, zofran, protonix Skin: no skin issues noted Additional Notes: Pt continues on the same diet, intake varied but appears improved to 75% at this time. Pt is still awaiting placement and discharge to hospice care. Comfort measures. Monitor intake, wt, labs. Follow up in 7 days.
[2023-11-19 11:09] LABS: Glucose Point of Care 230 mg/dl (65-105)
[2023-11-19] MEDS: INSULIN ASPART (*BKC) 100 UNITS/ML SUB-Q ×4 (12:08→16:54)
--- NOTE | 2023-11-19 12:28 | PM.IMPN ---
Progress Note: A&P Assessment and Plan (1) Altered mental status: Code(s): R41.82 - Altered mental status, unspecified Status: Acute Assessment and Plan: The patient presented to the emergency department from [facility] for evaluation of altered mental status last several days. Etiology is not entirely clear but consider recurrent CVA. Brain CT showed a recent right parietal centrum semiovale infarct which was noted on brain MRI during recent hospitalization. He does look a bit dry on exam and by labs though not significantly so and this would not likely account for his change in mentation. There is no evidence at this time to suggest underlying infection. He will be hydrated overnight with close monitoring. Family not wanting any further intervention at this time. CC consulted for hospice. Hospice meeting with BRIANNA on 11/12 at noon at his family home. Continue to wait for accepting facility for hospice at discharge. (2) Insulin dependent type 2 diabetes mellitus: Code(s): E11.9 - Type 2 diabetes mellitus without complications; Z79.4 - [facility] (current) use of insulin Status: Chronic Assessment and Plan: Insulin Lispro high dose sliding scale Lantus 15 units HS Accu-checks qAc and HS Hold oral hypoglycemics hypoglycemic protocol (3) Recent cerebrovascular accident: Code(s): Z86.73 - Personal history of transient ischemic attack (TIA), and cerebral infarction without residual deficits Status: Acute Assessment and Plan: Patient recently admitted due to CVA. According to family his awareness is the same as it has been post CVA. Head CT unchanged from recent admission showing a right parietal centrum semiovale infarct. Continue medications of aspirin, Plavix, and atorvastatin Patient will not keep telemetry monitoring on due to his aggressive behavior. Plan Comfort measures now Hospice meeting with BRIANNA 11/12 and family is in agreement on plan of care. Waiting for discharge to a facility. Multiple facilities have declined him due to Medicaid pending. A facility in [place] is considering him at this time. PRN Ativan to help manage his anxiety and agitation. Subjective Date/time seen: 11/19/23 12:28 Interval history: HPI obtained from the chart, This is a 58-year-old male with history of stroke, insulin dependent type 2 diabetes mellitus, coronary artery disease, peripheral vascular disease, right carotid artery occlusion, hypertension, and other comorbidities who presented to the emergency department via EMS from [facility] for evaluation of altered mental status. He is not able to provide an accurate history and a majority the following is obtained via a review of his EMR as well as information provided by his family members. He is in rehab following a recent hospitalization for acute CVA. He recently passed a swallow study in moved from a pureed diet to a level for and moderate thick liquid, level 3. He participated in therapy the 1st couple of days however the last several days he has been aggressive with staff requiring p.r.n. lorazepam and he has not been participating with therapy. He was sent in today given ongoing changes in his mentation. Family members have been considering palliative care. There have been no reports to my knowledge of fever, cold or flu symptoms, vomiting, or diarrhea. He was afebrile on arrival to the ED with stable vital signs. Labs were significant for sodium of 135, carbon dioxide 31, BUN 28, creatinine 1.50, troponin 0.039. Urine showed 3+ protein 3+ glucose but was otherwise unremarkable. A brain CT showed a recent right parietal centrum semiovale infarct with other chronic findings. Chest x-ray was normal. He was given 1 L normal saline and he is being admitted in this setting for further evaluation of altered mental status. At the time my evaluation he is alert and attempts to follow commands. He h
[2023-11-19 14:00] VITALS: BP 131/54; PULSE 52; RESP 22; TEMP 36; O2SAT 99
[2023-11-19] MEDS: ACETAMINOPHEN 325 MG TABLET 650 MG PO (14:03)
[2023-11-19] MEDS: HYDROcodone/acetaminophen (*CRX) 5-325 MG TABLET 1 TAB PO (16:04)
[2023-11-19 16:18] LABS: Glucose Point of Care 217 mg/dl (65-105)
[2023-11-19 20:00] VITALS: O2SAT 100
[2023-11-19] MEDS: rOPINIRole HCL 1 MG TABLET PO (20:25)
[2023-11-19] MEDS: MORPHINE SULFATE (*CRX) 15 MG TABCR PO (20:25)
[2023-11-19] MEDS: CYCLOBENZAPRINE HCL 10 MG TABLET PO (20:25)
[2023-11-19 21:22] VITALS: BP 141/77; PULSE 60; RESP 18; TEMP 36.3; O2SAT 100
[2023-11-20 02:13] LABS: Glucose Point of Care 69 mg/dl (65-105)
[2023-11-20 02:13] LABS: Glucose Point of Care 134 mg/dl (65-105)
[2023-11-20] MEDS: ACETAMINOPHEN 325 MG TABLET 650 MG PO ×3 (04:23→22:34)
[2023-11-20] MEDS: HALOPERIDOL LACTATE 5 MG/ML VIAL IM (04:54)
[2023-11-20] MEDS: LORazepam (*CRX) 1 MG TABLET PO ×2 (05:05→22:35)
[2023-11-20 06:00] VITALS: BP 131/47; PULSE 54; RESP 18; TEMP 36.2; O2SAT 99
[2023-11-20] MEDS: ASPIRIN 81 MG CHEWABLE TABLET PO (10:20)
[2023-11-20] MEDS: METOPROLOL TARTRATE 50 MG TAB PO ×2 (10:20→20:57)
[2023-11-20] MEDS: GABAPENTIN 300 MG CAPSULE 600 MG PO ×2 (10:20→16:18)
[2023-11-20] MEDS: ATORVASTATIN 40 MG TABLET 80 MG PO (10:21)
[2023-11-20] MEDS: MORPHINE SULFATE (*CRX) 15 MG TABCR PO ×2 (10:21→20:51)
[2023-11-20] MEDS: SACUBITRIL/VALSARTAN 12-13 MG TABLET 1 TAB PO ×2 (10:21→20:50)
[2023-11-20] MEDS: CLOPIDOGREL BISULFATE 75 MG TABLET PO (10:21)
[2023-11-20] MEDS: PANTOPRAZOLE 40 MG TABLET PO ×2 (10:21→16:18)
[2023-11-20] MEDS: EMPAGLIFLOZIN 10 MG TABLET PO (10:21)
[2023-11-20] MEDS: FLUoxetine HCL 20 MG CAPSULE 80 MG PO (10:21)
--- NOTE | 2023-11-20 11:13 | PM.IMPN ---
Progress Note: A&P Assessment and Plan (1) Altered mental status: Code(s): R41.82 - Altered mental status, unspecified Status: Acute Assessment and Plan: The patient presented to the emergency department from [facility] for evaluation of altered mental status last several days. Etiology is not entirely clear but consider recurrent CVA. Brain CT showed a recent right parietal centrum semiovale infarct which was noted on brain MRI during recent hospitalization. He does look a bit dry on exam and by labs though not significantly so and this would not likely account for his change in mentation. There is no evidence at this time to suggest underlying infection. He will be hydrated overnight with close monitoring. Family not wanting any further intervention at this time. CC consulted for hospice. Hospice meeting with BRIANNA on 11/12 at noon at his family home. Continue to wait for accepting facility for hospice at discharge. 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 According to family his awareness is the same as it has been post CVA. Head CT unchanged from recent admission showing a right parietal centrum semiovale infarct. Continue medications of aspirin, Plavix, and atorvastatin Patient will not keep telemetry monitoring on due to his aggressive behavior. Plan Comfort measures now Hospice meeting with BRIANNA 11/12 and family is in agreement on plan of care. Waiting for discharge to a facility. Multiple facilities have declined him due to Medicaid pending. PRN Ativan to help manage his anxiety and agitation. Subjective Date/time seen: 11/20/23 11:13 Interval history: HPI obtained from the chart, This is a 58-year-old male with history of stroke, insulin dependent type 2 diabetes mellitus, coronary artery disease, peripheral vascular disease, right carotid artery occlusion, hypertension, and other comorbidities who presented to the emergency department via EMS from [facility] for evaluation of altered mental status. He is not able to provide an accurate history and a majority the following is obtained via a review of his EMR as well as information provided by his family members. He is in rehab following a recent hospitalization for acute CVA. He recently passed a swallow study in moved from a pureed diet to a level for and moderate thick liquid, level 3. He participated in therapy the 1st couple of days however the last several days he has been aggressive with staff requiring p.r.n. lorazepam and he has not been participating with therapy. He was sent in today given ongoing changes in his mentation. Family members have been considering palliative care. There have been no reports to my knowledge of fever, cold or flu symptoms, vomiting, or diarrhea. He was afebrile on arrival to the ED with stable vital signs. Labs were significant for sodium of 135, carbon dioxide 31, BUN 28, creatinine 1.50, troponin 0.039. Urine showed 3+ protein 3+ glucose but was otherwise unremarkable. A brain CT showed a recent right parietal centrum semiovale infarct with other chronic findings. Chest x-ray was normal. He was given 1 L normal saline and he is being admitted in this setting for further evaluation of altered mental status. At the time my evaluation he is alert and attempts to follow commands. He has difficulties answering questions and only gives one-wo
[2023-11-20 11:42] LABS: Glucose Point of Care 165 mg/dl (65-105)
[2023-11-20 11:42] LABS: Glucose Point of Care 179 mg/dl (65-105)
[2023-11-20] MEDS: INSULIN ASPART (*BKC) 100 UNITS/ML SUB-Q (13:08)
[2023-11-20 14:00] VITALS: BP 132/49; PULSE 56; RESP 14; TEMP 36.1; O2SAT 100
[2023-11-20 16:36] LABS: Glucose Point of Care 120 mg/dl (65-105)
[2023-11-20] MEDS: rOPINIRole HCL 1 MG TABLET PO (20:50)
[2023-11-20 20:52] VITALS: BP 126/58; PULSE 58; RESP 18; TEMP 36.5; O2SAT 97
[2023-11-20] MEDS: INSULIN GLARGINE (*BKC) 100 UNITS/ML 15 UNITS SUB-Q (20:55)
[2023-11-20 21:08] LABS: Glucose Point of Care 153 mg/dl (65-105)
[2023-11-20] MEDS: CYCLOBENZAPRINE HCL 10 MG TABLET PO (22:35)
[2023-11-21 05:35] VITALS: BP 144/72; PULSE 60; RESP 16; TEMP 36.6; O2SAT 100
[2023-11-21 07:58] LABS: Glucose Point of Care 143 mg/dl (65-105)
[2023-11-21] MEDS: EMPAGLIFLOZIN 10 MG TABLET PO (08:35)
[2023-11-21] MEDS: MORPHINE SULFATE (*CRX) 15 MG TABCR PO (08:45)
[2023-11-21] MEDS: SACUBITRIL/VALSARTAN 12-13 MG TABLET 1 TAB PO (08:45)
[2023-11-21 08:55] VITALS: PULSE 60
[2023-11-21] MEDS: METOPROLOL TARTRATE 50 MG TAB PO (08:55)
[2023-11-21] MEDS: PANTOPRAZOLE 40 MG TABLET PO (08:56)
[2023-11-21] MEDS: ASPIRIN 81 MG CHEWABLE TABLET PO (08:56)
[2023-11-21] MEDS: FLUoxetine HCL 20 MG CAPSULE 80 MG PO (08:56)
[2023-11-21] MEDS: CLOPIDOGREL BISULFATE 75 MG TABLET PO (08:56)
[2023-11-21] MEDS: ATORVASTATIN 40 MG TABLET 80 MG PO (08:56)
[2023-11-21] MEDS: GABAPENTIN 300 MG CAPSULE 600 MG PO ×2 (08:56→13:35)
[2023-11-21 12:36] LABS: Glucose Point of Care 121 mg/dl (65-105)
[2023-11-21 14:00] VITALS: BP 146/54; PULSE 64; RESP 16; TEMP 36.4; O2SAT 97
--- NOTE | 2023-11-21 14:09 | PM.DS ---
DS: Admitting Diagnosis Discharge Date 11/21/23 Admitting Diagnosis altered mental status DS: Discharge Diagnosis Discharge Diagnosis (1) Altered mental status: Code(s): R41.82 - Altered mental status, unspecified Status: Acute Assessment and Plan: (2) Insulin dependent type 2 diabetes mellitus: Code(s): E11.9 - Type 2 diabetes mellitus without complications; Z79.4 - [facility] (current) use of insulin Status: Chronic Assessment and Plan: continue insulin at family discretion (3) Recent cerebrovascular accident: Code(s): Z86.73 - Personal history of transient ischemic attack (TIA), and cerebral infarction without residual deficits Status: Acute DS: Summary Hospital Course Hospital Course: Patient is a 58-year-old male with PMH of stroke, insulin dependent type 2 diabetes mellitus, coronary artery disease, peripheral vascular disease, right carotid artery occlusion, hypertension admitted from [facility] for evaluation of altered mental status. He was in rehab following a recent hospitalization for acute CVA. He recently passed a swallow study in moved from a pureed diet to a level for and moderate thick liquid, level 3. He participated in therapy the 1st couple of days however the last several days he has been aggressive with staff requiring p.r.n. lorazepam and he has not been participating with therapy. Labs on admission were significant for sodium of 135, carbon dioxide 31, BUN 28, creatinine 1.50, troponin 0.039. Urine showed 3+ protein 3+ glucose but was otherwise unremarkable. A brain CT showed a recent right parietal centrum semiovale infarct with other chronic findings. Chest x-ray was normal. Family opted for hospice placement. Placement secured at facility in [place]. Comfort measures put into place, patient may continue diabetic regimen at family's discretion. Status at Discharge Functional status at discharge: bed bound Overall status at discharge: patient is not back to baseline Time Spent with Patient Time attestation: Total time spent providing and/or coordinating discharge services: Exam Narrative: General: chronically ill appearing, drowsy, muscle wasting HEENT: normocephalic, atraumatic. EOMI, PERRLA Respiratory: clear to auscultation bilaterally. Cardiovascular: RRR, normal S1-S2 upon auscultation. Abdomen: Soft, non tender, non-distended. BS present. Extremities: No cyanosis, clubbing, or edema present. Pulses intact. L AKA. Neuro: alert, orientated x 2, confused. Cranial nerves 2-12 intact without focal deficit. Skin: Warm, dry, and intact, without rash, erythema, or lesion. Psych: alert, confused, dysarthria DS: Data Data Completed and Pending Labs on day of discharge: Labs from last 24 hours 11/21/23 11/21/23 11/20/23 12:30 07:22 20:45 POC Capillary Glucose 121 H 143 H 153 H 11/20/23 16:31 POC Capillary Glucose 120 H Discharge Plan Discharge Attending physician on discharge: Jose Enrique Lal Discharging Clinician: Lisa Shook Anticipated Discharge Date/Time: 11/21/23 11:16 Patient Disposition: NH Retirement/Asst Living Activity: other - see discharge instructions Diet: diabetic Stand Alone Forms: General Discharge Information, Intermediate Discharge Discharge Medications: Continued pantoprazole 40 mg tablet,delayed release (DR/EC) 40 mg PO BID cyclobenzaprine 10 mg tablet 10 mg PO HS PRN (Reason: muscle spasm) morphine 30 mg tablet extended release 15 mg PO Q12HR (DME) blood-glucose meter [OneTouch Verio Flex meter] [facility] [place]: 1 0RF Rx Instructions: May substitute to in-stock meter and/or covered by insurance. Use As Directed (DME) OneTouch Verio test strips Strip Qty: 1 0RF Rx Instructions: May substitute to in-stock and/or covered by insurance strips. Use As Directed (DME) lancets [OneTouch Delica Plus Lancet]
== END 2023-11-21 14:50 | disposition hospice, inpatient (51) | DRG 948 ==
LOC: ANHED 10:27 → ANHIMU 16:00 → ANH3MEDSUR 20:25
PROVIDERS: Physician Assistant; Admitting Provider Family Medicine; Emergency Provider Emergency Medicine; PCP Family Medicine; Visit Provider Nurse Practitioner
DX: R41.82 Altered mental status, unspecified (principal); I42.9 Cardiomyopathy, unspecified; R79.89 Other specified abnormal findings of blood chemistry; I65.21 Occlusion and stenosis of right carotid artery; I25.10 Atherosclerotic heart disease of native coronary artery without angina pectoris; E11.42 Type 2 diabetes mellitus with diabetic polyneuropathy; B18.2 Chronic viral hepatitis C; E86.0 Dehydration; I10 Essential (primary) hypertension; F41.9 Anxiety disorder, unspecified; M15.9 Polyosteoarthritis, unspecified; E78.5 Hyperlipidemia, unspecified; Z66 Do not resuscitate; Z86.73 Personal history of transient ischemic attack (TIA), and cerebral infarction without residual deficits; Z79.4 Long term (current) use of insulin; I25.2 Old myocardial infarction; Z95.2 Presence of prosthetic heart valve; Z89.612 Acquired absence of left leg above knee; Z90.49 Acquired absence of other specified parts of digestive tract; Z95.1 Presence of aortocoronary bypass graft; Z87.891 Personal history of nicotine dependence; Z74.01 Bed confinement status; Z51.5 Encounter for palliative care
CPT/HCPCS: 36415; 70450; 71045; 80048; 80053; 82948; 83605; 84484; 85025; 85610; 85730; 93005; 96360; 99285; A9270; G0378; J1200; J1630; J1815; J2060; J7030